=== PATIENT | female | born 1990 | race Caucasian/White ===

== ENCOUNTER → 2019-02-24 07:57 | Outpatient (BNVA) | payer OTHER, SELFPAY | PROVIDERS: Family Provider Family Medicine; PCP Family Medicine; Visit Provider Obstetrics & Gynecology | DX: Z01.89 Encounter for other specified special examinations (principal) ==

== ENCOUNTER → 2019-03-20 14:25 | Outpatient (BNVA) | payer MEDICAID, SELFPAY | PROVIDERS: Family Provider Family Medicine; PCP Family Medicine; Visit Provider Obstetrics & Gynecology | DX: R87.619 Unspecified abnormal cytological findings in specimens from cervix uteri (principal); R87.89 Other abnormal findings in specimens from female genital organs; N80.9 Endometriosis, unspecified | CPT/HCPCS: 81025 ==

== ENCOUNTER → 2019-03-21 10:24 | Outpatient (BNVA) | payer MEDICAID, SELFPAY | PROVIDERS: Family Provider Family Medicine; PCP Family Medicine; Visit Provider Obstetrics & Gynecology | DX: Z01.89 Encounter for other specified special examinations (principal) | CPT/HCPCS: 88305 ==

== ENCOUNTER → 2019-03-26 10:34 | Outpatient (BNVA) | payer MEDICAID, SELFPAY | PROVIDERS: Family Provider Family Medicine; PCP Family Medicine; Visit Provider Obstetrics & Gynecology | DX: R87.89 Other abnormal findings in specimens from female genital organs (principal); R10.2 Pelvic and perineal pain; N93.0 Postcoital and contact bleeding | CPT/HCPCS: 88305 ==

== ENCOUNTER 2019-04-09 09:02 | Inpatient (IN) | payer MEDICAID, SELFPAY ==
--- NOTE | 2019-04-08 11:20 | ANES.PREANE2 ---
Pre-Anesthetic Assessment Pre-Anesthetic Assessment: Height/Weight: Height 1.5 m Weight 45.359 kg Preop Diagnosis: Endometriosis, chronic pelvic pain Proposed Procedure: Operation Date: 04/09/19 07:00 Proposed Procedures p Total Vaginal Hysterectomy 23654 N93.9 R10.2(Not Applicable) - Erlin Mosher MD Social: Social History: Tobacco and No alcohol Exam: Pre-Anes Outpt Exam: alert, oriented x 3, clear to auscultation bilaterally and regular rate & rhythm History/ROS: No significant history except as noted Pulmonary: Pulmonary: None reported CV/HEM: CV/HEM: None reported : : None reported Hepatic: Hepatic: None reported GI: GI: GERD (occ) Metabolic: Metabolic: None reported Musc/skel: Musc/skel: None reported Neuropsych: Neuropsych: Anxiety and Depression Anesthetic Plan: ASA status: 2 Anesthesia: Anesthesia Evaluation and General Risk of > 500 ml blood loss (7ml/kg in children): No PFSH Anesthesia PFSH: Medical History (Updated 04/08/19 @ 11:21 by Wei Trevizo MD) Abnormal uterine bleeding (AUB) Pelvic pain in female Surgical History H/O removal of cyst [address] Mosher History of laparoscopy 2010-for endometriosis 2015- for Mirena removal 01/17/2017-performed by Dr. Mosher at [facility] History of tubal ligation 12/2015- per Dr. Mosher at [facility] Family History Mother Stroke Hyperlipidemia Family history of thyroid problem Hypertension Father Degenerative disc disease Diabetes Unknown Breast cancer maternal great aunt Grandmother Ovarian cancer maternal Uterine cancer maternal Social History Smoking and tobacco status: current every day smoker cigarettes Packs smoked per day: 0.5 Alcohol intake: never Additional social history: well balanced diet Female Reproductive History: Date of last menstrual period: 03/18/19 Data Anesthesia Cardiac Studies: No Data to Display
[2019-04-08 11:34] LABS: Basophils % 0.6 %; Eosinophils # 0.1 10^3/uL (0.0-0.8); Eosinophils % 2.4 %; Hemoglobin 12.1 g/dL (11.5-15.3); Lymphocytes # 1.8 10^3/uL (0.8-4.8); Lymphocytes % 32.3 %; Mean Corpuscular HGB Conc 31.8 g/dL (30.0-36.0); Mean Corpuscular Hemoglobin 32.6 pg (28.0-34.0); Mean Corpuscular Volume 102.4 fL (81-99); Mean Platelet Volume 9.5 fL (7.4-10.4); Monocytes # 0.5 10^3/uL (0.2-0.9); Monocytes % 8.9 %; Neutrophils % 55.6 %; Nucleated Red Blood Cells % 0 %; Platelet Count 305 10^3/cmm (130-400); Red Blood Count 3.71 10^6/uL (4.1-5.3); Red Cell Distribution Width 13.2 % (12.1-15.1); White Blood Count 5.4 10^3/uL (4.0-10.0)
[2019-04-08 11:44] LABS: Add Urine Microscopic? YES; Bilirubin Urine Neg (NEGATIVE); Blood Urine 2+ (Negative); Glucose Urine UA Norm (Normal); Ketones Urine Negative (Negative); Leukocyte Esterase Urine Negative (Negative); Nitrate Urine Negative (Negative); Protein Urine Neg (Negative); Specific Gravity, Urine 1.005 (1.005-1.030); Urine Appearance Clear (CLEAR); Urine Color Straw (Yellow); Urobilinogen Urine Norm (Negative)
[2019-04-08 11:55] LABS: Alanine Aminotransferase 169 U/L (0-33); Albumin Level 4.2 g/dL (3.5-5.2); Alkaline Phosphatase 101 IU/L (35-105); Anion Gap 14.3 (5-19); Aspartate Amino Transferase 54 U/L (0-32); Blood Urea Nitrogen 8 mg/dL (6-20); Calcium 9.5 mg/dL (8.5-10.5); Carbon Dioxide 24 mmol/L (22-29); Chloride 103 mmol/L (98-107); Glomerular Filtration Rate 118.2 mL/min (90-130); Glucose 103 mg/dL (65-115); Potassium 4.3 mmol/L (3.5-5.1); Sodium 137 mmol/L (136-145); Total Bilirubin 0.3 mg/dL (0.15-1.2); Total Protein 7.2 g/dL (6.6-8.7)
[2019-04-08 12:02] LABS: Add Urine Culture? No; Bacteria Urine TRACE
[2019-04-09] VITALS (23 sets, daily range): BP systolic 103–133; BP diastolic 56–87; PULSE 80–124; RESP 15–20; TEMP 36.6–37.4; O2SAT 96–100
[2019-04-09] MEDS: sodium chloride 0.9% 1,000 ML 30 ML IV (06:30)
--- NOTE | 2019-04-09 06:52 | ANES.PAUD2 ---
Pre-Anesthetic Update Pre-Anesthetic Assessment: Date of Surgery/Procedure: 04/09/19 Preop Diagnosis: Endometriosis, chronic pelvic pain Proposed Procedure: Operation Date: 04/09/19 07:00 Proposed Procedures p Total Vaginal Hysterectomy 59172 N93.9 R10.2(Not Applicable) - Erlin Mosher MD Any changes to Pre-Anesthetic Assessment?: No Last Intake: NPO > 8 hrs, no meds this morning Labs Last 48hrs: Laboratory Results - last 48 hr 04/08/19 04/08/19 04/08/19 11:10 11:10 11:10 WBC 5.4 RBC 3.71 L Hgb 12.1 Hct 38.0 MCV 102.4 H MCH 32.6 MCHC 31.8 RDW 13.2 Plt Count 305 MPV 9.5 Neut % (Auto) 55.6 Lymph % (Auto) 32.3 [facility] % (Auto) 8.9 Eos % (Auto) 2.4 Baso % (Auto) 0.6 Neut # (Auto) 3.0 Lymph # (Auto) 1.8 [facility] # (Auto) 0.5 Eos # (Auto) 0.1 Baso # (Auto) 0.0 Nucleated RBC % (a uto) 0 Nucleated RBCs # 0.0 Sodium 137 Potassium 4.3 Chloride 103 Carbon Dioxide 24 Anion Gap 14.3 BUN 8 Creatinine 0.6 GFR Calculation 118.2 Glucose 103 Calcium 9.5 Total Bilirubin 0.3 AST 54 H ALT 169 H Alkaline Phosphata se 101 Total Protein 7.2 Albumin 4.2 Globulin 3.0 Urine Color Straw Urine Appearance Clear Urine pH 5.0 Ur Specific Gravit y 1.005 Urine Protein Neg Urine Glucose (UA) Norm Urine Ketones Negative Urine Occult Blood 2+ H Urine Nitrate Negative Urine Bilirubin Neg Urine Urobilinogen Norm Ur Leukocyte Adriana ase Negative Urine RBC None Urine WBC 5-10 H Ur Squamous Epith Cells 5-10 H Urine Bacteria Trace Blood Type Antibody Screen 04/08/19 11:10 WBC RBC Hgb Hct MCV MCH MCHC RDW Plt Count MPV Neut % (Auto) Lymph % (Auto) [facility] % (Auto) Eos % (Auto) Baso % (Auto) Neut # (Auto) Lymph # (Auto) [facility] # (Auto) Eos # (Auto) Baso # (Auto) Nucleated RBC % (a uto) Nucleated RBCs # Sodium Potassium Chloride Carbon Dioxide Anion Gap BUN Creatinine GFR Calculation Glucose Calcium Total Bilirubin AST ALT Alkaline Phosphata se Total Protein Albumin Globulin Urine Color Urine Appearance Urine pH Ur Specific Gravit y Urine Protein Urine Glucose (UA) Urine Ketones Urine Occult Blood Urine Nitrate Urine Bilirubin Urine Urobilinogen Ur Leukocyte Adriana ase Urine RBC Urine WBC Ur Squamous Epith Cells Urine Bacteria Blood Type B Positive Antibody Screen Negative Vitals: Temperature 98.2 F 04/09/19 06:45 Pulse Rate 87 04/09/19 06:45 Pulse Rhythm 04/09/19 06:26 Pulse Strength 3+ Normal 04/09/19 06:26 Respiratory Rate 16 04/09/19 06:45 Blood Pressure 131/87 04/09/19 06:45 Blood Pressure Jacqui n 101 04/09/19 06:45 Pulse Oximetry 98 04/09/19 06:45 Oxygen Delivery Me thod 04/09/19 06:45 Exam: Pre-Anes Outpt Exam: alert, oriented x 3, clear to auscultation bilaterally and regular rate & rhythm Cardiac Studies: No Data to Display
--- NOTE | 2019-04-09 07:05 | W.PM.OPSUD ---
Surgery/Procedure H&P Update DATE OF PROCEDURE: April 09, 2019 DATE H&P PERFORMED: 04/07/19 H&P UPDATE INFORMATION: I have reviewed H&P completed within last 30 days and I have examined patient prior to procedure PREOP DIAGNOSIS: Endometriosis, chronic pelvic pain PLANNED PROCEDURE: Operation Date: 04/09/19 07:00 Proposed Procedures p Total Vaginal Hysterectomy 12733 N93.9 R10.2(Not Applicable) - Erlin Mosher MD
[2019-04-09 07:06] LABS: OR HCG Qualitative Urine Negative (Negative)
[2019-04-09] MEDS: midazolam 1 mg/mL INJ 2 mL 2 MG IVP (07:13)
[2019-04-09] MEDS: estrogens Conjugated Cream 30 gm 1 APPLIC VAGINAL (08:16)
[2019-04-09] MEDS: fentaNYL 50 mcg/mL INJ 2mL IVP ×2 (08:52→08:57)
[2019-04-09] MEDS: metoclopramide 5 mg/mL SDV 2 mL 10 MG IVP (09:00)
--- NOTE | 2019-04-09 09:08 | PM.OP ---
Operative Report Date of procedure: April 09, 2019 Pre-op Diagnosis: Endometriosis, chronic pelvic pain, dyspareunia. Post-op diagnosis: same Post-op Findings: normal size uterus Procedure Done: Total vaginal hysterectomy Specimens removed/disposition: uterus Surgeon: Erlin Mosher Anesthesia: General Estimated blood loss (mL): 25 IV fluids (mL): 1,200 Urine output (mL): 900 Complications: None Condition: stable Disposition: PACU Brief History: 28 y/o female with Endometriosis, chronic pelvic pain, dyspareunia. Procedure: Total vaginal hysterectomy After informed consent and risks, benefits, indications and alternatives reviewed with the patient was taken to the operating room. The patient was placed in dorsal lithotomy position prepped, and draped in the usual sterile fashion. The pre-procedure timeout verifying the correct patient, procedure, site and side, could not requirements was performed and acknowledge by the OR team. A Beltran catheter was placed. A Bookwalter vaginal retractor was placed into the vagina in usual manner visualize the cervix. Cervix was grasped with a single tooth tenaculum and circumferentially infiltrated with 2% Xylocaine with epinephrine. Then cervix was circumferentially incised with bovie and the bladder was dissected off the pubovesical cervical fascia anteriorly with a sponge stick and Metzenbaum scissors. The anterior peritoneal reflection was identified and the anterior cul-de-sac was entered sharply with Metzenbaum scissors. The same procedure was performed posteriorly and a posterior colpotomy was made through the posterior cul-de-sac space without difficulty and the posterior blade of the Bookwalter vaginal retractor was advanced posteriorly into the cul-de-sac. At this time, the left and right uterosacral ligaments were isolated and ligated with 0 Vicryl. The Enseal device was placed over the uterosacral ligaments on either side and was then used in a serial fashion up through the cardinal ligaments bilaterally cross-clamped, cut, and sealed with the Enseal device. Finally, the uterine arteries were cross-clamped, cut, sealed and ligated with the Enseal device. Hemostasis was assured. The broad ligaments were then serially clamped, sealed and cut with the Enseal device on both sides. Excellent hemostasis was visualized. Both cornua were clamped, sealed and cut with the Enseal device. Then the pedicles were then suture ligated with excellent hemostasis. The uterus was excised and submitted for pathologic evaluation. No other abnormalities were noted in the pelvic cavity. The peritoneum was then closed in a pursestring fashion with 0 Vicryl suture. The vaginal cuff angles were closed with [id number] #0 Vicryl suture on both sides and transfixed with the ipsilateral cardinal and uterosacral ligaments. At this time the patient was given indigo carmine IV. The remainder of the vaginal cuff was closed with #0 Vicryl in a running locked fashion. At this time, instruments were removed from the vagina at hemostasis assured. Then the Beltran catheter was removed and cystoscope was inserted. The bladder was filled with sterile water. Complete evaluation of the bladder mucosa was performed noting no lacerations, dimpling, tears, bleeding of the mucosa or muscular layers. Both ureteral orifices were identified. Prompt excretion of blue urine from both ureteral orifices was noted. Cystoscope was withdrawn. Beltran catheter was then placed yielding clear manny urine. A vaginal packing with Premarin cream was placed and the patient was taken out of dorsal lithotomy position and awakened from the general anesthesia. The patient tolerated the procedure well and was taken to the PACU recovery room in a stable condition. Sponge, lap, needle and instruments counts were correct x3.
[2019-04-09] MEDS: HYDROcodone-acetaminophen 5-325 mg Tablet PO ×3 (10:08→21:11)
[2019-04-09] MEDS: dextrose 5%-lactated ringers 1,000 ML 125 ML IV (11:25)
--- NOTE | 2019-04-09 11:40 | PC.NURSE ---
Dr. Mosher notified that patient stated she didn't get her preop antibiotics like she was supposed to. Dr. Mosher updated that she did get 2 gm cefazolin before surgery this morning. No new orders for antibiotics given at this time.
[2019-04-09] MEDS: ketorolac 30 mg/mL INJ IVP ×2 (15:47→19:50)
[2019-04-09] MEDS: docusate sodium 100 mg Capsule PO (18:08)
[2019-04-10] MEDS: HYDROcodone-acetaminophen 5-325 mg Tablet PO ×3 (01:01→09:11)
[2019-04-10 03:52] VITALS: BP 121/79; PULSE 103; RESP 15; TEMP 36.9; O2SAT 97
[2019-04-10 05:56] LABS: Hematocrit 34.5 % (37.0-47.0); Hemoglobin 11.1 g/dL (11.5-15.3); Mean Corpuscular HGB Conc 32.2 g/dL (30.0-36.0); Mean Corpuscular Hemoglobin 32.9 pg (28.0-34.0); Mean Corpuscular Volume 102.4 fL (81-99); Mean Platelet Volume 9.8 fL (7.4-10.4); Platelet Count 313 10^3/cmm (130-400); Red Blood Count 3.37 10^6/uL (4.1-5.3); Red Cell Distribution Width 13.3 % (12.1-15.1); White Blood Count 14.1 10^3/uL (4.0-10.0)
--- NOTE | 2019-04-10 06:56 | PC.NURSE ---
REMOVAL OF VAGINAL PACKING THIS NURSE REMOVED VAGINAL PACKING FROM PT AT 0655 04/10/19. PT TOLERATED PROCEDURE WELL. SCANT AMOUNTS OF DARK BROWNISH-RED DRIED BLOOD NOTED TO PACKING. PACKING REMOVED IN A SINGLE PIECE.
[2019-04-10] MEDS: alum-mag-hydroxide-sime 30 mL UDC PO (07:49)
[2019-04-10] MEDS: simethicone 80 mg Chew PO (07:50)
[2019-04-10] MEDS: docusate sodium 100 mg Capsule PO (07:51)
--- NOTE | 2019-04-10 09:08 | P.DS_ITS ---
Discharge Providers [employer] PERSON Date of Admission: 04/09/19 09:02 Date of Discharge: 04/10/19 Attending Provider at Admission: Erlin Mosher MD Attending Provider at Discharge: Erlin Mosher MD Primary Care Provider: Joaquin Mak MD Diagnoses at Discharge Discharge Diagnosis (1) Chronic pelvic pain in female: Status: Acute (2) Endometriosis determined by laparoscopy: Status: Acute (3) Abnormal Papanicolaou smear of cervix with positive human papilloma virus (HPV) test: Status: Acute Reason for Visit Reason for Visit: Reason For Visit: abnormal uterine bleeding chronic pelvic pain Brief History: 28-year-old female with a history of long-standing chronic pelvic pain and dyspareunia diagnosed with endometriosis unresponsive to medical management. Hospital Course Hospital Course: The patient was admitted for the planned total vaginal hysterectomy. The procedure was performed without complication. Postop observation was uneventful. She is afebrile and hemodynamically stable. Tolerating diet well. Ambulating without difficulty. Urine output normal. Physical Exam Narrative: EXAM NARRATIVE: GA: Alert and oriented ?3. HEENT: WNL. Heart: Regular rate and rhythm. Lungs: Clear to auscultation bilaterally. Abdomen: Bowel sounds present, minimal tenderness. 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 Extremities: No edema, no cyanosis, no calves pain. Urinary Catheter Management^: Beltran: Cath Placed During This Visit: yes, but has since been removed by the nurse Reason for Continuing Indwelling Catheter: Required Immobilization for Trauma or Surgery or Anesthesia Urinary Catheter Date of Insertion: 04/09/19 Urinary Catheter Time of Insertion: 07:36 Date Urinary Catheter Removed: 04/09/19 Time Urinary Catheter Discontinued: 13:48 Discharge Data Data Completed and Pending: Laboratory Tests 04/08/19 11:10 WBC 5.4 Hgb 12.1 Hct 38.0 Plt Count 305 Pending at discharge Category Date Time Status Pathology: Surgic al [PTH] Routine Pth 04/09/19 08:30 Received Labs from last 24 hours 04/10/19 05:04 WBC 14.1 H RBC 3.37 L Hgb 11.1 L Hct 34.5 L MCV 102.4 H MCH 32.9 MCHC 32.2 RDW 13.3 Plt Count 313 MPV 9.8 Addt'l Data from Hospital Stay: Intake & Output 04/09/19 04/10/19 04/10/19 22:59 06:59 14:59 Intake Total 204.167 / 1187.917 Output Total 875 / 4525 500 / 5025 0 / 0 Balance -670.833 / -3337.0 83 -500 / -3837.083 0 / 0 Intake: IV 204.167 / 747.917 dextrose 5%-la ctated ringers 1, 204.167 / 614.584 000 ml @ 125 m ls/hr IV .Q8H BLAYNE Rx#:[id number] Output: Urine 875 / 4500 500 / 5000 0 / 0 Vitals: Last Vital Signs Temp 98.5 F 04/10/19 03:52 Pulse 103 H 04/10/19 03:52 Resp 15 04/10/19 03:52 BP 121/79 04/10/19 03:52 Pulse Ox 97 04/10/19 03:52 Discharge Plan Discharge Patient Disposition: Home, Self-Care Condition: Stable Prescriptions: New hydrocodone-acetaminophen 5-325 mg Tablet 1 - 2 tab PO Q4H PRN (Reason: Moderate To Severe Pain) Qty: 30 RF: 0 Continued cyclobenzaprine 10 mg tablet 10 mg PO .TID prn RF: 0 alprazolam 0.25 mg tablet 0.25 mg PO .BID prn RF: 0 cetirizine 10 mg tablet 10 mg PO DAILY RF: 0 ibuprofen 600 mg tablet 600 mg PO TID MDD PAIN PRN (Reason: Endometriosis) Qty: 60 RF: 11 Discharge Orders: Discharge Order (Routine); Ordered 04/10/19 Ordered By: Erlin Mosher Discharge Diet: Regular Discharge Activity: Increase activity as tolerated Activity Restrictions/Additional Instructions: Pelvic rest for 6 weeks. Return to the emergency room if any fever, increased bleeding or pain Discharge Attestations [employer] PERSON Time Spent in Discharge Care*: greater than 30 min Coding Level of Care Code Acute Grip for g Fwd Diagnoses Chronic pelvic pain in female R10.2; G89.29 Endometriosis determined by laparoscopy N80.9 Abnormal Papanicolaou smear of cervix with positive human papilloma virus (HPV) test R87.89
[2019-04-10 10:07] VITALS: BP 99/69; PULSE 121; RESP 18; TEMP 36.8; O2SAT 97
[2019-04-10 10:11] VITALS: PULSE 109
--- NOTE | 2019-04-10 10:31 | ANE.PACU2 ---
 Inpatient post-anesthesia follow up: Airway intact: No Vital signs: Temperature 98.3 F Pulse Rate 109 Respiratory Rate 18 Blood Pressure 99/69 Pulse Oximetry 97 Oxygen Delivery Me thod Room Air Oxygen Flow Rate 6 Fraction of Inspir ed Oxygen Hydration adequate: Yes Nausea and vomiting: No Mental status: Baseline
== END 2019-04-10 10:28 | disposition home or self-care (01) | DRG 743 ==
LOC: OBGYN 04-10 09:07
PROVIDERS: Admitting Provider Obstetrics & Gynecology; Family Provider Family Medicine; PCP Family Medicine; Visit Provider Obstetrics & Gynecology
PROC: 0UT90ZZ Resection of Uterus, Open Approach (ICD-10-PCS; principal; 2019-04-09 07:00)
PROC: 0TJB8ZZ Inspection of Bladder, Via Natural or Artificial Opening Endoscopic (ICD-10-PCS; CPT 52000; 2019-04-09 07:00)
DX: N80.9 Endometriosis, unspecified (principal); N94.10 Unspecified dyspareunia; G89.29 Other chronic pain; R10.2 Pelvic and perineal pain; Z80.41 Family history of malignant neoplasm of ovary; F17.210 Nicotine dependence, cigarettes, uncomplicated
CPT/HCPCS: 12345; 36415; 80053; 81001; 81025; 84703; 85025; 85027; 86850; 86900; 88307; 96361; 96374; 96375; G0378; J0131; J0690; J1100; J1885; J2001; J2250; J2370; J2704; J2710; J2765; J3010; J3490; J7030

== ENCOUNTER 2019-05-01 08:53 | Inpatient (IN) | payer MEDICAID, SELFPAY ==
[2019-05-01] VITALS (8 sets, daily range): BP systolic 117–136; BP diastolic 64–92; PULSE 99–111; RESP 16–18; TEMP 36.9–37.6; O2SAT 94–99; BMI 20.9
--- NOTE | 2019-05-01 09:07 | ED_ITS ---
Documented by User: ENOCH Ferris 05/01/19 14:01 HPI - Female Genitourinary General: Chief complaint: Vaginal Bleeding Stated complaint: HEAVY BLEEDING Time Seen by Provider: 05/01/19 09:02 History of Present Illness: HPI Narrative: Patient is a 28-year-old female G3, P3 comes to the ED with pelvic pain and vaginal bleeding. 3 weeks ago patient had a hysterectomy performed due to patient having cervical cancer. Patient started having heavy bleeding about 1 week ago. Patient says she had some mild postop bleeding that was normal for couple days after surgery, but then did not have any vaginal bleeding until about a week ago. She uses heavy pads for bleeding and says that she goes through a pad an hour for the last week. Patient is also having 9 out of 10 pelvic pain. Pain started about a week ago as well and gets worse when she has had bowel movements or urinates. She says she is constipated and does have to strain for bowel movements. She had some nausea and vomiting about a week ago but that has since resolved. Patient saw Dr. Mosher last Sunday for postop follow-up. Dr. Mosher thought some of her pain and bleeding could possibly be from putting strain on the sutures due to straining bowel movements. Dr. Mosher inspected the suture area and said that the sutures looked like that a little bit of strain. She supposed to see Dr. Mosher this May 01 but called his office today and he told the patient to come up to the ED to get a CT scan. Associated symptoms: Reports abdominal pain (lower abdomen/pelvic) and nausea (recently resolved); Deny headache(s) Date of Last Menstrual Period: 03/18/19 Review of Systems Const: Denies: fever, chills or fatigue Eyes: Denies: change in vision or eye discomfort ENMT: Denies: throat pain, painful swallowing, nasal discharge or nasal congestion Card: Denies: chest pain, palpitations, edema, swelling of feet/ankles, shortness of breath on exertion or shortness of breath when lying down Resp: Denies: shortness of breath, productive cough or non-productive cough GI: Reports: abdominal pain (lower abdomen/pelvic), nausea (recently resolved), vomiting (Recently resolved) and constipation; Denies: diarrhea or blood in stool : Reports: vaginal bleeding (heavy for about 1 week) and pelvic pain; Denies: flank pain, painful urination or blood in urine Musc: Denies: neck pain, back pain or extremity swelling Skin/Breast: Denies: rash or new lesion Neuro: Denies: headache, numbness in extremities or weakness in extremities PFSH ED PFSH: Medical History Abnormal uterine bleeding (AUB) Pelvic pain in female Surgical History H/O removal of cyst [address] Mosher History of laparoscopy 2010-for endometriosis 2015- for Mirena removal 01/17/2017-performed by Dr. Mosher at [facility] History of tubal ligation 12/2015- per Dr. Mosher at [facility] Family History Mother Stroke Hyperlipidemia Family history of thyroid problem Hypertension Father Degenerative disc disease Diabetes Unknown Breast cancer maternal great aunt Grandmother Ovarian cancer maternal Uterine cancer maternal Social History Smoking and tobacco status: current every day smoker cigarettes Packs smoked per day: 0.5 Alcohol intake: never Additional social history: well balanced diet Female Reproductive History: Date of last menstrual period: 03/18/19 Physical Exam Narrative: EXAM NARRATIVE: Patient is a 28-year-old female who is sitting comfortably on the exam bed when I enter the room. Patient did not appear to be in any acute distress. Const: COMMON NORMALS: oriented x3 HENMT: COMMON NORMALS: normocephalic HEAD & SCALP: normocephalic MOUTH: oral and palatal mucosa normal THROAT: posterior oropharynx normal and uvula midline Eye: COMMON NORMALS: PERRL PUPIL: Yes PERRL Neck/C-Spine: COMMON NORMALS: supple GENERAL: Yes normal visual inspection Lymph: LYMPHATIC: no lymphadenopathy noted (cervical nodes checked-non detected) Resp: COMMON NORMALS: normal respiratory effort, no retractions, no use of accessory muscles and clear to auscultation bilaterally AUSCULTATION: clear to auscultation bilaterally Cardio: COMMON NORMALS: regular rate, regular rhythm, S1 normal heart sound, S2 normal heart sound, no gallops, no clicks, no murmurs and peripheral pulses 2+ throughout RATE: regular rate RHYTHM: regular rhythm HEART SOUNDS: S1 normal and S2 normal PERIPHERAL PULSES: pulses 2+ throughout GI: COMMON NORMALS: normal to inspection, nondistended, normoactive bowel sounds, soft to palpation and no masses PALPATION: Yes soft and Yes tender Details: LLQ, RLQ and other (pelvic) : COMMON NORMALS: Yes no CVA tenderness BLADDER/KIDNEY EXAM: Yes no CVA tenderness Back/Pelvis: COMMON NORMALS: no CVA tenderness Extremity: COMMON NORMALS: normal to inspection and normal capillary refill Neuro: COMMON NORMALS: oriented x3 and moves all extremities Skin: COMMON NORMALS: no rashes or lesions noted GENERAL SKIN EXAM: no rashes or lesions noted and dry skin Course ED course: I discussed this case with Dr. Odell and told him about the CT results. Dr. Odell will be taking over care of patient since they will be possibly needing admission or transfer. Vital Signs: Vital signs: Vital Signs Temperature 98.5 F 05/01/19 08:55 Pulse Rate 99 05/01/19 08:55 Respiratory Rate 18 05/01/19 17:12 Blood Pressure 136/92 05/01/19 08:55 Pulse Oximetry 99 05/01/19 11:37 MDM - Female Lab Data: Attestation: I reviewed the patient's lab results. Labs: Lab Results 04/30/19 05/01/19 05/01/19 Range/Units 09:25 09:15 09:15 WBC 12.3 H (4.0-10.0) 10^3/ uL RBC 3.16 L (4.1-5.3) 10^6/u L Hgb 9.9 L (11.5-15.3) g/dL Hct 31.8 L (37.0-47.0) % MCV 100.6 H (81-99) fL MCH 31.3 (28.0-34.0) pg MCHC 31.1 (30.0-36.0) g/dL RDW 14.0 (12.1-15.1) % Plt Count 705 H (130-400) 10^3/c mm MPV 9.0 (7.4-10.4) fL Neut % (Auto) 80.3 % Lymph % (Auto) 12.2 % [place] % (Auto) 5.6 % Eos % (Auto) 1.2 % Baso % (Auto) 0.4 % Neut # (Auto) 9.9 H (1.8-7.7) 10^3/u L Lymph # (Auto) 1.5 (0.8-4.8) 10^3/u L [place] # (Auto) 0.7 (0.2-0.9) 10^3/u L Eos # (Auto) 0.2 (0.0-0.8) 10^3/u L Baso # (Auto) 0.1 (0.0-0.1) 10^3/u L Nucleated RBC % (a uto) 0 % Nucleated RBCs # 0.0 /100WBC Sodium 139 (136-145) mmol/L Potassium 4.2 (3.5-5.1) mmol/L Chloride 103 (98-107) mmol/L Carbon Dioxide 23 (22-29) mmol/L Anion Gap 17.2 (5-19) BUN 8 (6-20) mg/dL Creatinine 0.5 (0.5-0.9) mg/dL GFR Calculation 145.9 H (90-130) mL/min Glucose 99 (65-115) mg/dL Calculated Osmolal ity 284 L (285-295) mOsm/k g Lactate (0.5-2.2) mmol/L Calcium 9.8 (8.5-10.5) mg/dL Total Bilirubin 0.2 (0.15-1.2) mg/dL AST 13 (0-32) U/L ALT 24 (0-33) U/L Alkaline Phosphata se 244 H (35-105) IU/L Total Protein 7.8 (6.6-8.7) g/dL Albumin 3.7 (3.5-5.2) g/dL Globulin 4.1 (1.3-4.6) g/dL HCG, Qual (Negative) Urine Color Yellow (Yellow) Urine Appearance Hazy A (CLEAR) Urine pH 6 (5-7) Ur Specific Gravit y 1.020 (1.005-1.030) Urine Protein Neg (Negative) Urine Glucose (UA) Norm (Normal) Urine Ketones 1+ H (Negative) Urine Blood 3+ H (Negative) Urine Nitrate Negative (Negative) Urine Bilirubin Neg (NEGATIVE) Urine Urobilinogen Norm (Negative) mg/dL Ur Leukocyte Adriana ase 2+ H (Negative) Urine RBC 5-10 H (0-2) /hpf Urine WBC 25-40 H (0-5) /hpf Ur Squamous Epith Cells 0-4 H (0-5) Urine Bacteria 2+ H (NONE) Blood Type Rho(D) Type Antibody Screen 05/01/19 05/01/19 05/01/19 Range/Units 09:15 09:39 09:39 WBC (4.0-10.0) 10^3/ uL RBC (4.1-5.3) 10^6/u L Hgb (11.5-15.3) g/dL Hct (37.0-47.0) % MCV (81-99) fL MCH (28.0-34.0) pg MCHC (30.0-36.0) g/dL RDW (12.1-15.1) % Plt Count (130-400) 10^3/c mm MPV (7.4-10.4) fL Neut % (Auto) % Lymph % (Auto) % [place] % (Auto) % Eos % (Auto) % Baso % (Auto) % Neut # (Auto) (1.8-7.7) 10^3/u L Lymph # (Auto) (0.8-4.8) 10^3/u L [place] # (Auto) (0.2-0.9) 10^3/u L Eos # (Auto) (0.0-0.8) 10^3/u L Baso # (Auto) (0.0-0.1) 10^3/u L Nucleated RBC % (a uto) % Nucleated RBCs # /100WBC Sodium (136-145) mmol/L Potassium (3.5-5.1) mmol/L Chloride (98-107) mmol/L Carbon Dioxide (22-29) mmol/L Anion Gap (5-19) BUN (6-20) mg/dL Creatinine (0.5-0.9) mg/dL GFR Calculation (90-130) mL/min Glucose (65-115) mg/dL Calculated Osmolal ity (285-295) mOsm/k g Lactate 0.2 L (0.5-2.2) mmol/L Calcium (8.5-10.5) mg/dL Total Bilirubin (0.15-1.2) mg/dL AST (0-32) U/L ALT (0-33) U/L Alkaline Phosphata se (35-105) IU/L Total Protein (6.6-8.7) g/dL Albumin (3.5-5.2) g/dL Globulin (1.3-4.6) g/dL HCG, Qual Negative (Negative) Urine Color (Yellow) Urine Appearance (CLEAR) Urine pH (5-7) Ur Specific Gravit y (1.005-1.030) Urine Protein (Negative) Urine Glucose (UA) (Normal) Urine Ketones (Negative) Urine Blood (Negative) Urine Nitrate (Negative) Urine Bilirubin (NEGATIVE) Urine Urobilinogen (Negative) mg/dL Ur Leukocyte Adriana ase (Negative) Urine RBC (0-2) /hpf Urine WBC (0-5) /hpf Ur Squamous Epith Cells (0-5) Urine Bacteria (NONE) Blood Type B Positive Rho(D) Type Positive Antibody Screen Negative Imaging Data: CT Abd/Pel: Attestation: I personally reviewed and interpreted this imaging study as follows: Radiologist's impression: [place] [address] CT Scan Report Signed Patient: Mary Nesbitt Unit #: [id number] : 1990 Age/Sex: 28 / F ADM Date: 05/01/19 Loc: ER Room/Bed: Attending Dr: Ordering Provider/Ordering MD: James Tyson Date of Service: 05/01/19 Procedure(s): CT abdomen pelvis w con* [id number] Accession Number(s): [id number] Report Number: [id number] WS: [id number] CT ABDOMEN PELVIS TECHNIQUE: Contrast-enhanced CT of the abdomen and pelvis with coronal and sagittal reformatted images. CLINICAL INFORMATION: Pelvic pain and vaginal bleeding. COMPARISON: CT January 20, 2019 DLP: 496.[address] scans at [facility] use at least one of these dose optimization techniques: automated exposure control; mA and/or kV adjustment per patient size (includes targeted exams where dose is matched to clinical indication); or iterative reconstruction. FINDINGS: Recent postoperative changes hysterectomy. Moderate amount of fluid in the pelvis with peripheral enhancement and a few scattered pockets of air. Dominant collection in the hysterectomy bed with peripheral enhancement measuring 6.3 x 3.8 x 5.1 CM suspicious for infected fluid collection/abscess. Adjacent satellite pocket of fluid with peripheral enhancement eccentric to the left measuring 2.4 cm adjacent to the left ovary. Additional right adnexal peripheral enhancing round collections more likely represent bowel and/or adnexal cysts. These 2 areas measure approximately 2.5 x 2.0 cm and 2.5 x 3.1 cm. Diffuse inflammatory changes in the pelvis and about the rectum. Compression of the sigmoid and rectum. Reactive inflammatory changes involving the sigmoid colon. Mild diffuse thickening involving the vaginal cuff and perirectal fat. Normal liver. Normal portal vein and splenic vein. Normal gallbladder. Adrenal glands are normal. Normal renal parenchymal enhancement. Normal spleen. Normal caliber abdominal aorta. No hydronephro sis. Lung bases are well aerated. Notified ENOCH Ferris at 05/01/2019 10:[address]/CT abdomen pelvis w con* [id number] IMPRESSION: 1. Postoperative changes hysterectomy with peripheral enhancing fluid collection in the hysterectomy bed suspicious for developing abscess measuring 6.3 x 3.8 x 5.1 CM. 2. Smaller satellite peripheral enhancing fluid collection along the left ovary measuring 2.3 CM. 3. Diffuse inflammatory stranding and edema in the lower pelvis extending into the vaginal cuff and perirectal fat. 4. Reactive inflammatory changes and edema with narrowing of the sigmoid colon and rectum. 5. Normal renal parenchymal enhancement. No hydronephrosis. Dictated By: Tigre Box MD Signed By: Tigre Box MD Signed Date/Time: 05/01/19 1050 DD/ 1021 Discharge Plan Discharge Patient Disposition: Admitted As Inpatient Admit Provider: Erlin Mosher Clinical Impression: Acute abscess of female pelvis, S/P hysterectomy Condition: Stable Coding Level of Care Code ED Room Service Clerk for Chg Fwd Exam Comprehensive Documented by User: Kris Odell DO 05/01/19 17:37 HPI - Female Genitourinary General: Chief complaint: Vaginal Bleeding Stated complaint: HEAVY BLEEDING Time Seen by Provider: 05/01/19 09:02 History of Present Illness: HPI Narrative: Reviewed case with [place]. Patient is needing admission. Discussed history with patient. Patient reports previously seeing Dr. Mosher in follow-up for hysterectomy which she had done about 2 weeks ago there is a concern about infection she was prescribed some antibiotics unfortunately did not ever take them. Today she has increasing pain and discomfort. CT has shown abscess. She has had some low-grade fever at home. Associated symptoms: Deny abdominal pain or nausea Review of Systems Const: Reports: fever, chills, fatigue and malaise; Denies: body aches or change in appetite ENMT: Denies: throat pain, ear pain, nasal discharge or nasal congestion Card: Denies: chest pain, edema, shortness of breath on exertion or shortness of breath when lying down Resp: Denies: shortness of breath, productive cough or non-productive cough GI: Denies: abdominal pain, nausea, vomiting, vomiting blood, coffee grounds in vomit, diarrhea, constipation, bloating, blood in stool or black tarry stool : Denies: flank pain, difficulty urinating, painful urination, urinary frequency or urinary urgency Skin/Breast: Denies: rash or itching PFSH ED PFSH: Medical History Abnormal uterine bleeding (AUB) Pelvic pain in female Surgical History H/O removal of cyst [address] Mosher History of laparoscopy 2010-for endometriosis 2015- for Mirena removal 01/17/2017-performed by Dr. Mosher at [facility] History of tubal ligation 12/2015- per Dr. Mosher at [facility] Family History Mother Stroke Hyperlipidemia Family history of thyroid problem Hypertension Father Degenerative disc disease Diabetes Unknown Breast cancer maternal great aunt Grandmother Ovarian cancer maternal Uterine cancer maternal Social History Smoking and tobacco status: current every day smoker cigarettes Packs smoked per day: 0.5 Alcohol intake: never Additional social history: well balanced diet Physical Exam Const: COMMON NORMALS: no apparent distress GENERAL APPEARANCE: cooperative and comfortable ORIENTATION/CONSCIOUSNESS: Yes awake, Yes oriented to person, Yes oriented to place and Yes oriented to time HENMT: COMMON NORMALS: normocephalic, head/scalp atraumatic, hearing grossly normal bilaterally, external ears normal, EAC's normal, TM's normal bilaterally, nasal mucous membranes and turbinates normal, moist oral mucous membranes and oropharynx normal HEAD & SCALP: normocephalic and atraumatic NOSE: nasal mucous membranes and turbinates normal EXTERNAL EAR: Yes external ears normal EXTERNAL AUDITORY CANAL: EAC's normal TYMPANIC MEMBRANE: TM's normal bilaterally Eye: COMMON NORMALS: PERRL, EOMs intact bilaterally, conjunctivae normal and no scleral icterus CONJUNCTIVA: Yes conjunctivae normal PUPIL: Yes PERRL Neck/C-Spine: COMMON NORMALS: full ROM, no lymphadenopathy, supple and no JVD Lymph: LYMPHATIC: no lymphadenopathy noted and no lymphedema noted Resp: COMMON NORMALS: normal respiratory effort, no retractions, no use of accessory muscles and clear to auscultation bilaterally AUSCULTATION: clear to auscultation bilaterally Cardio: COMMON NORMALS: no JVD, regular rate, regular rhythm and no murmurs RATE: regular rate RHYTHM: regular rhythm GI: COMMON NORMALS: no hepatosplenomegaly AUSCULTATION: Yes normoactive bowel sounds PALPATION: Yes tender (Suprapubic), No guarding and Yes no hepatosplenomegaly Extremity: COMMON NORMALS: normal to inspection, normal capillary refill, no clubbing, cyanosis or edema, no calf tenderness and no pedal edema Neuro: SENSORIUM/ORIENTATION: Yes oriented to person, Yes oriented to place and Yes oriented to time Skin: COMMON NORMALS: no rashes or lesions noted GENERAL SKIN EXAM: no rashes or lesions noted Course ED course: Luciano Mosher. Will start on Zosyn. Patient will Require hospitalization for possible exploration or procures percutaneous drainage of reported abscess from CT discussed with the patient as well. Vital Signs: Vital signs: Vital Signs Temperature 98.5 F 05/01/19 08:55 Pulse Rate 99 05/01/19 08:55 Respiratory Rate 18 05/01/19 17:12 Blood Pressure 136/92 05/01/19 08:55 Pulse Oximetry 99 05/01/19 11:37 MDM - Female Lab Data: Labs: Lab Results 04/30/19 05/01/19 05/01/19 Range/Units 09:25 09:15 09:15 WBC 12.3 H (4.0-10.0) 10^3/ uL RBC 3.16 L (4.1-5.3) 10^6/u L Hgb 9.9 L (11.5-15.3) g/dL Hct 31.8 L (37.0-47.0) % MCV 100.6 H (81-99) fL MCH 31.3 (28.0-34.0) pg MCHC 31.1 (30.0-36.0) g/dL RDW 14.0 (12.1-15.1) % Plt Count 705 H (130-400) 10^3/c mm MPV 9.0 (7.4-10.4) fL Neut % (Auto) 80.3 % Lymph % (Auto) 12.2 % [place] % (Auto) 5.6 % Eos % (Auto) 1.2 % Baso % (Auto) 0.4 % Neut # (Auto) 9.9 H (1.8-7.7) 10^3/u L Lymph # (Auto) 1.5 (0.8-4.8) 10^3/u L [place] # (Auto) 0.7 (0.2-0.9) 10^3/u L Eos # (Auto) 0.2 (0.0-0.8) 10^3/u L Baso # (Auto) 0.1 (0.0-0.1) 10^3/u L Nucleated RBC % (a uto) 0 % Nucleated RBCs # 0.0 /100WBC Sodium 139 (136-145) mmol/L Potassium 4.2 (3.5-5.1) mmol/L Chloride 103 (98-107) mmol/L Carbon Dioxide 23 (22-29) mmol/L Anion Gap 17.2 (5-19) BUN 8 (6-20) mg/dL Creatinine 0.5 (0.5-0.9) mg/dL GFR Calculation 145.9 H (90-130) mL/min Glucose 99 (65-115) mg/dL Calculated Osmolal ity 284 L (285-295) mOsm/k g Lactate (0.5-2.2) mmol/L Calcium 9.8 (8.5-10.5) mg/dL Total Bilirubin 0.2 (0.15-1.2) mg/dL AST 13 (0-32) U/L ALT 24 (0-33) U/L Alkaline Phosphata se 244 H (35-105) IU/L Total Protein 7.8 (6.6-8.7) g/dL Albumin 3.7 (3.5-5.2) g/dL Globulin 4.1 (1.3-4.6) g/dL HCG, Qual (Negative) Urine Color Yellow (Yellow) Urine Appearance Hazy A (CLEAR) Urine pH 6 (5-7) Ur Specific Gravit y 1.020 (1.005-1.030) Urine Protein Neg (Negative) Urine Glucose (UA) Norm (Normal) Urine Ketones 1+ H (Negative) Urine Blood 3+ H (Negative) Urine Nitrate Negative (Negative) Urine Bilirubin Neg (NEGATIVE) Urine Urobilinogen Norm (Negative) mg/dL Ur Leukocyte Adriana ase 2+ H (Negative) Urine RBC 5-10 H (0-2) /hpf Urine WBC 25-40 H (0-5) /hpf Ur Squamous Epith Cells 0-4 H (0-5) Urine Bacteria 2+ H (NONE) Blood Type Rho(D) Type Antibody Screen 05/01/19 05/01/19 05/01/19 Range/Units 09:15 09:39 09:39 WBC (4.0-10.0) 10^3/ uL RBC (4.1-5.3) 10^6/u L Hgb (11.5-15.3) g/dL Hct (37.0-47.0) % MCV (81-99) fL MCH (28.0-34.0) pg MCHC (30.0-36.0) g/dL RDW (12.1-15.1) % Plt Count (130-400) 10^3/c mm MPV (7.4-10.4) fL Neut % (Auto) % Lymph % (Auto) % [place] % (Auto) % Eos % (Auto) % Baso % (Auto) % Neut # (Auto) (1.8-7.7) 10^3/u L Lymph # (Auto) (0.8-4.8) 10^3/u L [place] # (Auto) (0.2-0.9) 10^3/u L Eos # (Auto) (0.0-0.8) 10^3/u L Baso # (Auto) (0.0-0.1) 10^3/u L Nucleated RBC % (a uto) % Nucleated RBCs # /100WBC Sodium (136-145) mmol/L Potassium (3.5-5.1) mmol/L Chloride (98-107) mmol/L Carbon Dioxide (22-29) mmol/L Anion Gap (5-19) BUN (6-20) mg/dL Creatinine (0.5-0.9) mg/dL GFR Calculation (90-130) mL/min Glucose (65-115) mg/dL Calculated Osmolal ity (285-295) mOsm/k g Lactate 0.2 L (0.5-2.2) mmol/L Calcium (8.5-10.5) mg/dL Total Bilirubin (0.15-1.2) mg/dL AST (0-32) U/L ALT (0-33) U/L Alkaline Phosphata se (35-105) IU/L Total Protein (6.6-8.7) g/dL Albumin (3.5-5.2) g/dL Globulin (1.3-4.6) g/dL HCG, Qual Negative (Negative) Urine Color (Yellow) Urine Appearance (CLEAR) Urine pH (5-7) Ur Specific Gravit y (1.005-1.030) Urine Protein (Negative) Urine Glucose (UA) (Normal) Urine Ketones (Negative) Urine Blood (Negative) Urine Nitrate (Negative) Urine Bilirubin (NEGATIVE) Urine Urobilinogen (Negative) mg/dL Ur Leukocyte Adriana ase (Negative) Urine RBC (0-2) /hpf Urine WBC (0-5) /hpf Ur Squamous Epith Cells (0-5) Urine Bacteria (NONE) Blood Type B Positive Rho(D) Type Positive Antibody Screen Negative Discharge Plan Discharge Patient Disposition: Admitted As Inpatient Admit Provider: Erlin Mosher Clinical Impression: Acute abscess of female pelvis, S/P hysterectomy Condition: Stable Coding Level of Care Code ED Room Service Clerk for Meghanag Fwd Exam Comprehensive
--- NOTE | 2019-05-01 09:08 | CT_ITS ---
WS: [id number] CT ABDOMEN PELVIS TECHNIQUE: Contrast-enhanced CT of the abdomen and pelvis with coronal and sagittal reformatted image s. CLINICAL INFORMATION: Pelvic pain and vaginal bleeding. COMPARISON: CT January 20, 2019 DLP: 496.[address] scans at [facility] use at least one of these dose optimization techniques: automat ed exposure control; mA and/or kV adjustment per patient size (includes targeted exams where dose is matched to clinical indication); or iterative reconstruction. FINDINGS: Recent postoperative changes hysterectomy. Moderate amount of fluid in the pelvis with peripheral enh ancement and a few scattered pockets of air. Dominant collection in the hysterectomy bed with periphe ral enhancement measuring 6.3 x 3.8 x 5.1 CM suspicious for infected fluid collection/abscess. Adjace nt satellite pocket of fluid with peripheral enhancement eccentric to the left measuring 2.4 cm adjac ent to the left ovary. Additional right adnexal peripheral enhancing round collections more likely represent bowel and/or ad nexal cysts. These 2 areas measure approximately 2.5 x 2.0 cm and 2.5 x 3.1 cm. Diffuse inflammatory changes in the pelvis and about the rectum. Compression of the sigmoid and rectum. Reactive inflammat ory changes involving the sigmoid colon. Mild diffuse thickening involving the vaginal cuff and perir ectal fat. Normal liver. Normal portal vein and splenic vein. Normal gallbladder. Adrenal glands are normal. Nor mal renal parenchymal enhancement. Normal spleen. Normal caliber abdominal aorta. No hydronephrosis. Lung bases are well aerated. Notified ENOCH Ferris at 05/01/2019 10:[address]/CT abdomen pelvis w con* [id number] IMPRESSION: 1. Postoperative changes hysterectomy with peripheral enhancing fluid collecti on in the hysterectomy bed suspicious for developing abscess measuring 6.3 x 3. 8 x 5.1 CM. 2. Smaller satellite peripheral enhancing fluid collection along the left ovar y measuring 2.3 CM. 3. Diffuse inflammatory stranding and edema in the lower pelvis extending into the vaginal cuff and perirectal fat. 4. Reactive inflammatory changes and edema with narrowing of the sigmoid colon and rectum. 5. Normal renal parenchymal enhancement. No hydronephrosis.
[2019-05-01] MEDS: sodium chloride 0.9% 1,000 ML 999 ML IV (09:17)
[2019-05-01 09:23] LABS: Basophils # 0.1 10^3/uL (0.0-0.1); Basophils % 0.4 %; Eosinophils # 0.2 10^3/uL (0.0-0.8); Eosinophils % 1.2 %; Hematocrit 31.8 % (37.0-47.0); Hemoglobin 9.9 g/dL (11.5-15.3); Lymphocytes # 1.5 10^3/uL (0.8-4.8); Lymphocytes % 12.2 %; Mean Corpuscular HGB Conc 31.1 g/dL (30.0-36.0); Mean Corpuscular Hemoglobin 31.3 pg (28.0-34.0); Mean Corpuscular Volume 100.6 fL (81-99); Monocytes # 0.7 10^3/uL (0.2-0.9); Monocytes % 5.6 %; Neutrophils # 9.9 10^3/uL (1.8-7.7); Neutrophils % 80.3 %; Nucleated Red Blood Cells % 0 %; Platelet Count 705 10^3/cmm (130-400); Red Blood Count 3.16 10^6/uL (4.1-5.3); White Blood Count 12.3 10^3/uL (4.0-10.0)
[2019-05-01] MEDS: morphine 4 mg/mL SDV 1 mL IVP ×4 (09:28→17:12)
[2019-05-01] MEDS: metoclopramide 5 mg/mL SDV 2 mL IVP (09:28)
[2019-05-01 09:37] LABS: Alanine Aminotransferase 24 U/L (0-33); Albumin Level 3.7 g/dL (3.5-5.2); Alkaline Phosphatase 244 IU/L (35-105); Anion Gap 17.2 (5-19); Aspartate Amino Transferase 13 U/L (0-32); Blood Urea Nitrogen 8 mg/dL (6-20); Calcium 9.8 mg/dL (8.5-10.5); Carbon Dioxide 23 mmol/L (22-29); Chloride 103 mmol/L (98-107); Globulin 4.1 g/dL (1.3-4.6); Glomerular Filtration Rate 145.9 mL/min (90-130); Glucose 99 mg/dL (65-115); Osmolality Calculated 284 mOsm/kg (285-295); Potassium 4.2 mmol/L (3.5-5.1); Sodium 139 mmol/L (136-145); Total Bilirubin 0.2 mg/dL (0.15-1.2); Total Protein 7.8 g/dL (6.6-8.7)
[2019-05-01 09:42] LABS: Urine Appearance Hazy (CLEAR); Urine Color Yellow (Yellow)
[2019-05-01 09:43] LABS: HCG, Serum Qual Negative (Negative)
[2019-05-01 09:43] LABS: Bilirubin Urine Neg (NEGATIVE); Blood Urine 3+ (Negative); Glucose Urine UA Norm (Normal); Ketones Urine 1+ (Negative); Leukocyte Esterase Urine 2+ (Negative); Nitrate Urine Negative (Negative); Protein Urine Neg (Negative); Urobilinogen Urine Norm (Negative); pH Urine 6 (5-7)
[2019-05-01 09:46] LABS: Add Urine Culture? Yes; Bacteria Urine 2+; Squamous Epithelial Cell Urine 0-4 (0-5); WBC Urine 25-40 /hpf (0-5)
[2019-05-01] MEDS: iohexol 300 mg/mL 100 mL Btl IV (09:59)
[2019-05-01 11:04] LABS: Lactate (Lactic Acid level) 0.2 mmol/L (0.5-2.2)
[2019-05-01] MEDS: piperacillin-tazobactam 3.375 GM in sodium chloride 0.9% (plus) 100 ML IV ×2 (11:37→23:35)
[2019-05-01] MEDS: D5-NS 0.45% + KCL 20 mEq 20 MEQ/1,000 ML BAG 150 MEQ IV (18:04)
[2019-05-01] MEDS: morphine 4 mg/mL SDV 1 mL 2 MG IVP ×2 (19:30→23:28)
--- NOTE | 2019-05-01 19:46 | P.HP_ITS ---
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 Upon examination the collection of fluid was noted and the CT scans subjective of pelvic abscess. The patient is hemodynamically stable and she had referred to be a febrile. Present Details Date of Last Menstrual Period: 03/18/19 Calculated Date of Delivery: 12/23/19 Gestational Age Based on Last Menstrual Period: 5 Review of Systems Const: Denies: fever, chills or fatigue Eyes: Denies: change in vision or eye discomfort ENMT: Denies: throat pain, painful swallowing, nasal discharge or nasal congestion Card: Denies: chest pain, palpitations, edema, swelling of feet/ankles, shortness of breath on exertion or shortness of breath when lying down Resp: Denies: shortness of breath, productive cough or non-productive cough GI: Reports: abdominal pain (lower abdomen/pelvic), nausea (recently resolved), vomiting (Recently resolved) and constipation; Denies: diarrhea or blood in stool : Reports: vaginal bleeding (heavy for about 1 week) and pelvic pain; Denies: flank pain, painful urination or blood in urine Musc: Denies: neck pain, back pain or extremity swelling Skin/Breast: Denies: rash or new lesion Neuro: Denies: headache, numbness in extremities or weakness in extremities Medications/Allergies Home Medications Medication Instructions Recorded Confirmed Last Taken Type alprazolam 0.5 mg PO BID PRN 05/01/19 05/01/19 Unknown History Allergies Allergy/AdvReac Type Severity Reaction Status Date / Time ondansetron [From Zofran] Allergy Severe Seizures Verified 04/25/19 12:50 topiramate [From Topamax] Allergy Severe facial Verified 04/25/19 12:50 numbness and tingling, dizziness Latex, Natural Rubber Allergy Intermediate rash, hives Verified 04/25/19 12:50 oxycodone Allergy Intermediate hives, pain Verified 04/25/19 12:50 tramadol Allergy Intermediate vomiting, Verified 04/25/19 12:50 nausea [facility] 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 Mosher History of laparoscopy 2010-for endometriosis 2015- for Mirena removal 01/17/2017-performed by Dr. Mosher at [facility] History of tubal ligation 12/2015- per Dr. Mosher at [facility] Family History Mother Stroke Hyperlipidemia Family history of thyroid problem Hypertension Father Degenerative disc disease Diabetes Unknown Breast cancer maternal great aunt Grandmother Ovarian cancer maternal Uterine cancer maternal Social History Smoking and tobacco status: current every day smoker cigarettes Packs smoked per day: 0.5 Alcohol intake: never Additional social history: well balanced diet History History 5 Term 3 Miscarriages/Ectopic 2 0 Living Children 3 Past Pregnancies Del. Date GA/Weeks Outcome Route Wt Inf Gender Labor Lgth Comp. Anesth esia Location Unknown spontaneous Unknown spontaneous 06/25/07 32 live - Vaginal 2.438 kg Female 12 hours [facility] 08/12/08 34 live - Vaginal 2.934 kg Female 8 hours [facility] 03/29/10 41 live - full term Vaginal 3.033 kg Female 6 hours [facility] Delivery Date: On 02/24/19 @ 08:14 Kerri Yin at 3.5 months Delivery Date: On 02/24/19 @ 08:14 Kerri Yin - 2015 at 4 months Delivery Date: 06/25/07 On 02/24/19 @ 08:[address] Mak Delivery Date: 08/12/08 On 02/24/19 @ 08:[address] Silveira Delivery Date: 03/29/10 On 02/24/19 @ 08:[address] Mak Other Female Reproductive History Hx Age of Menarche: 10 Duration of menses: 3-5 days Date of Last Menstrual Period: 03/17/19 Cycle Length: 28 days Menstrual flow: normal/abnormal: light Sexual History Are you sexually active?: Yes What is your sexual preference?: Heterosexual Hx Sexually Transmitted Diseases: No Have you ever tested positive for HIV?: No Contraception control method: Pills, Progestin IUCD, Permanent sterilization, Condoms and Other (Hysterectomy) Vitals/I&O/Wt Last Vital Signs Temp 98.5 F 05/01/19 08:55 Pulse 105 H 05/01/19 17:39 Resp 16 05/01/19 19:30 BP 117/64 05/01/19 17:39 Pulse Ox 96 05/01/19 17:39 05/01/19 05/01/19 05/01/19 06:59 14:59 22:59 Intake Total 100 / 100 Balance 100 / 100 Weight last 48 hrs Weight 47.174 kg Physical Exam Narrative: EXAM NARRATIVE: Patient was sleeping in bed in the room when I came in Const: COMMON NORMALS: oriented x3 HENMT: COMMON NORMALS: normocephalic HEAD & SCALP: normocephalic MOUTH: oral and palatal mucosa normal THROAT: posterior oropharynx normal and uvula midline Eye: COMMON NORMALS: PERRL PUPIL: Yes PERRL Neck/C-Spine: COMMON NORMALS: supple GENERAL: Yes normal visual inspection Lymph: LYMPHATIC: no lymphadenopathy noted (cervical nodes checked-non detected) Resp: COMMON NORMALS: normal respiratory effort, no retractions, no use of accessory muscles and clear to auscultation bilaterally AUSCULTATION: clear to auscultation bilaterally Cardio: COMMON NORMALS: regular rate, regular rhythm, S1 normal heart sound, S2 normal heart sound, no gallops, no clicks, no murmurs and peripheral pulses 2+ throughout RATE: regular rate RHYTHM: regular rhythm HEART SOUNDS: S1 normal and S2 normal PERIPHERAL PULSES: pulses 2+ throughout GI: COMMON NORMALS: normal to inspection, nondistended, normoactive bowel sounds, soft to palpation and no masses PALPATION: Yes soft and Yes tender Details: LLQ, RLQ and other (pelvic) : COMMON NORMALS: Yes no CVA tenderness BLADDER/KIDNEY EXAM: Yes no CVA tenderness Back/Pelvis: COMMON NORMALS: no CVA tenderness Extremity: COMMON NORMALS: normal to inspection and normal capillary refill Neuro: COMMON NORMALS: oriented x3 and moves all extremities Skin: COMMON NORMALS: no rashes or lesions noted GENERAL SKIN EXAM: no rashes or lesions noted and dry skin Data : 05/01/19 09:15 05/01/19 09:15 Micro: Microbiology 05/01/19 09:39 Blood Culture - Preliminary Blood SPECIMEN COLLECTED 05/01/19 09:15 Blood Culture - Preliminary Blood SPECIMEN COLLECTED A&P Assessment and plan (1) Acute abscess of female pelvis: Hysterectomy pelvic fluid is fairly common. However the presentation suggesting a pelvic abscess fever, tachycardia tachypnea and lower abdominal pain that can present days to weeks after a hysterectomy. The diagnosis is based on clinical suspicion and palpation a fluctuant mass and visualization fluid collection in the pelvic area either by CT scan or ultrasound. Initial treatment is with broad-spectrum parenteral antibiotics. She responded to parenteral antibiotics she may be discharged home on oral broad-spectrum antibiotics. Initial treatment with abscess less than 7 cm but greater than 2 cm if no resolution of abscess noted in 48-72 hours percutaneous drainage may be indicated. However her cyst/abscess at its greater measurement is 6.3 cm, and will schedule percutaneous drainage through the vaginal cuff in the morning after she had received antibiotics. Status: Acute Code(s): N73.0 - Acute parametritis and pelvic cellulitis Attestations 2 Medical Necessity Statement*: In my professional opinion per admitting diagnosis. 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
[2019-05-01] MEDS: acetaminophen 500 mg Tablet PO (20:56)
[2019-05-02] VITALS (21 sets, daily range): BP systolic 106–139; BP diastolic 64–98; PULSE 65–135; RESP 14–20; TEMP 36.6–38.3; O2SAT 95–100
[2019-05-02] MEDS: D5-NS 0.45% + KCL 20 mEq 20 MEQ/1,000 ML BAG 150 MEQ IV (04:21)
[2019-05-02] MEDS: morphine 4 mg/mL SDV 1 mL 2 MG IVP (04:22)
[2019-05-02] MEDS: piperacillin-tazobactam 3.375 GM in sodium chloride 0.9% (plus) 100 ML IV ×4 (05:56→23:14)
--- NOTE | 2019-05-02 06:56 | P.ANESASSM_ITS ---
Pre-Anesthetic Assessment Pre-Anesthetic Assessment: Height/Weight: Height 1.5 m Weight 47.174 kg Temp Pulse Resp BP Pulse Ox 101 F H 128 H 18 139/98 96 05/02/19 06:30 05/02/19 06:30 05/02/19 06:30 05/02/19 06:30 05/02/19 06:30 Preop Diagnosis: Endometriosis, chronic pelvic pain Proposed Procedure: Operation Date: 05/02/19 07:10 Proposed Procedures p vaginal abcess drainage(Not Applicable) - Erlin Mosher MD Was Beta Omar taken within 24 hours: N/A Last intake: Intake Last Liquid Date 05/01/19 Last Liquid Time 23:30 Last Solid Date 05/01/19 Last Solid Time 21:30 Last Intake: 23:30 Social: Social History: No alcohol Packs per day: 0.5 Pack years: 8 Airway: Submandibular: WNL Cervical ROM: WNL MP: 1 Pulmonary: Pulmonary: None reported CV/HEM: CV/HEM: None reported : : None reported Hepatic: Hepatic: None reported GI: GI: GERD (occ. OTC meds) Metabolic: Metabolic: None reported Musc/skel: Musc/skel: Lower Back Pain and Scoliosis Neuropsych: Neuropsych: Anxiety, Depression and BRADLEY Anesthetic Plan: ASA status: 2 Anesthesia: Anesthesia Evaluation and General Risk of > 500 ml blood loss (7ml/kg in children): No Meds/Allergies Current Medications: Current Medications Generic Name Dose Route Start Last Admin Trade Name Freq PRN Reason Stop Dose Admin Acetaminophen 500 mg 05/01/19 20:07 05/01/19 20:56 Tylenol PO 500 mg Q4H PRN Administration MILD PAIN OR INCR EASE TEMP Potassium Chloride /Dextrose/Sod Cl 20 meq in 1,000 m ls @ 150 mls/hr 05/01/19 17:39 05/02/19 04:21 D5-Ns 0.45% + Richie l 20 Meq IV 150 mls/hr .Q6H40M BLAYNE Administration Piperacillin Sod/T azobactam 100 mls @ 100 mls /hr 05/02/19 00:00 05/02/19 05:56 Sod 3.375 gm/ So dium Chloride IV 100 mls/hr Q6H BLAYNE Administration Protocol Morphine Sulfate 2 mg 05/01/19 17:39 05/02/19 04:22 Morphine IVP 2 mg Q4H PRN Administration SEVERE PAIN PFSH Anesthesia PFSH: Medical History Abnormal uterine bleeding (AUB) Pelvic pain in female Surgical History H/O removal of cyst [address] Mosher History of laparoscopy 2010-for endometriosis 2015- for Mirena removal 01/17/2017-performed by Dr[facility] Mosher at [facility] History of tubal ligation 12/2015- per Dr. Mosher at [facility] Family History Mother Stroke Hyperlipidemia Family history of thyroid problem Hypertension Father Degenerative disc disease Diabetes Unknown Breast cancer maternal great aunt Grandmother Ovarian cancer maternal Uterine cancer maternal Social History Smoking and tobacco status: current every day smoker cigarettes Packs smoked per day: 0.5 Alcohol intake: never Additional social history: well balanced diet Female Reproductive History: Date of last menstrual period: 03/18/19 Data Anesthesia CBC & Chem 7: 05/01/19 09:15 05/01/19 09:15 Other Labs: Laboratory Results - last 48 hr 04/30/19 05/01/19 05/01/19 09:25 09:15 09:15 WBC 12.3 H RBC 3.16 L Hgb 9.9 L Hct 31.8 L MCV 100.6 H MCH 31.3 MCHC 31.1 RDW 14.0 Plt Count 705 H MPV 9.0 Neut % (Auto) 80.3 Lymph % (Auto) 12.2 Emery % (Auto) 5.6 Eos % (Auto) 1.2 Baso % (Auto) 0.4 Neut # (Auto) 9.9 H Lymph # (Auto) 1.5 Emery # (Auto) 0.7 Eos # (Auto) 0.2 Baso # (Auto) 0.1 Nucleated RBC % (auto) 0 Nucleated RBCs # 0.0 Sodium 139 Potassium 4.2 Chloride 103 Carbon Dioxide 23 Anion Gap 17.2 BUN 8 Creatinine 0.5 GFR Calculation 145.9 H Glucose 99 Calculated Osmolality 284 L Lactate Calcium 9.8 Total Bilirubin 0.2 AST 13 ALT 24 Alkaline Phosphatase 244 H Total Protein 7.8 Albumin 3.7 Globulin 4.1 HCG, Qual Urine Color Yellow Urine Appearance Hazy A Urine pH 6 Ur Specific [place] 1.020 Urine Protein Neg Urine Glucose (UA) Norm Urine Ketones 1+ H Urine Blood 3+ H Urine Nitrate Negative Urine Bilirubin Neg Urine Urobilinogen Norm Ur Leukocyte Esterase 2+ H Urine RBC 5-10 H Urine WBC 25-40 H Ur Squamous Epith Cells 0-4 H Urine Bacteria 2+ H Blood Type Rho(D) Type Antibody Screen 05/01/19 05/01/19 05/01/19 09:15 09:39 09:39 WBC RBC Hgb Hct MCV MCH MCHC RDW Plt Count MPV Neut % (Auto) Lymph % (Auto) Emery % (Auto) Eos % (Auto) Baso % (Auto) Neut # (Auto) Lymph # (Auto) Emery # (Auto) Eos # (Auto) Baso # (Auto) Nucleated RBC % (auto) Nucleated RBCs # Sodium Potassium Chloride Carbon Dioxide Anion Gap BUN Creatinine GFR Calculation Glucose Calculated Osmolality Lactate 0.2 L Calcium Total Bilirubin AST ALT Alkaline Phosphatase Total Protein Albumin Globulin HCG, Qual Negative Urine Color Urine Appearance Urine pH Ur Specific [place] Urine Protein Urine Glucose (UA) Urine Ketones Urine Blood Urine Nitrate Urine Bilirubin Urine Urobilinogen Ur Leukocyte Esterase Urine RBC Urine WBC Ur Squamous Epith Cells Urine Bacteria Blood Type B Positive Rho(D) Type Positive Antibody Screen Negative Micro: Microbiology 05/01/19 09:39 Blood Culture - Preliminary Blood SPECIMEN COLLECTED 05/01/19 09:15 Blood Culture - Preliminary Blood SPECIMEN COLLECTED Cardiac Studies: No Data to Display
--- NOTE | 2019-05-02 07:15 | W.PM.OPSUD ---
Surgery/Procedure H&P Update DATE OF PROCEDURE: May 02, 2019 DATE H&P PERFORMED: 05/01/19 H&P UPDATE INFORMATION: I have reviewed H&P completed within last 30 days and I have examined patient prior to procedure PREOP DIAGNOSIS: Endometriosis, chronic pelvic pain PLANNED PROCEDURE: Operation Date: 05/02/19 07:10 Proposed Procedures p vaginal abcess drainage(Not Applicable) - Erlin Mosher MD
[2019-05-02] MEDS: sodium chloride 0.9% 1,000 ML 30 ML IV (07:29)
[2019-05-02] MEDS: midazolam 1 mg/mL INJ 2 mL 2 MG IVP (07:29)
--- NOTE | 2019-05-02 08:36 | PM.OP ---
Operative Report Date of procedure: May 02, 2019 Pre-op Diagnosis: Status post total vaginal hysterectomy, Endometriosis, chronic pelvic pain Post-op Findings: scant serosanguinous fluid Procedure Done: Exam under anesthesia, drainage of scant serosanguinous fluid Pathology: none sent Surgeon: Erlin Mosher MD Anesthesia: General Complications: None Findings: Scant serosanguinous fluid Condition: stable Disposition: PACU Brief History: 28-year-old female status post total vaginal hysterectomy 22 days ago, with pelvic pain, seeing in the ER and a CT scan was performed referring possible pelvic abscess. Procedure: Patient was counseled regarding endometrial biopsy. Was informed of the possible risk but not limited to: Cramping pain during procedure and 1-2 days after procedure, Bleeding, may occur for several days after procedure, Infection, Perforation of uterus, Allergic reaction to medications or instruments used, Vasovagal reaction, Disruption of unknown , Missed abnormal tissue. She signed the informed consent. A timeout protocol was performed prior to initiating the procedure. She denies allergy to Betadine. The patient was placed in dorsal lithotomy position and bimanual exam was performed showing to be normal. A sterile vaginal speculum was inserted, and the vaginal cuff was visualized. No signs of infection noted. A transvaginal ultrasound probe was inserted and small amount of fluid was noted. The left vaginal cuff angle corner suture removed and carefully opened a small section with blunt dissection, no discharge was noted. Then with ultrasound guidance the suction device was inserted and a scant serosanguinous fluid was drained, but no purulent material was noted. The patient was rescan with ultrasound probe and no fluid was noted. A right ovarian cyst of approximately 3 cm was noted. There was minimal bleeding noted. The instruments were removed from vagina removed with goad hemostasis noted. The patient tolerated the procedure well. The patient was taken to the recovery area in stable condition.
[2019-05-02] MEDS: dextrose 5%-lactated ringers 1,000 ML 125 ML IV ×2 (09:41→18:00)
[2019-05-02] MEDS: docusate sodium 100 mg Capsule PO ×2 (09:42→17:59)
[2019-05-02] MEDS: ketorolac 30 mg/mL INJ IVP ×2 (09:42→14:34)
--- NOTE | 2019-05-02 11:05 | PC.CHAP ---
Pastoral Care Encounter/Spiritual Assessment Type of Contact [] Declined storage receipt poster visit [] Patient/Family/Request visit [] Outpatient visit [] Follow-up visit [] Physician referral [] Code/Alert [x] Routine visit [] Staff referral [] Actively dying [] Patient sleeping [] Family support [] [] Out of room [] Palliative care [] [] Receiving care in room [] Pre-surgical visit [] Trauma [] Long length of stay [] ICU visit [] Other: Relational/Emotional Strength [x Patient feels connected with others/family/visitors/staff [] Distress [] Loneliness/isolation [] Abandonment Spirituality of Patient [xx] Person of Antonina [] Attends Episcopalian of their Antonina [] Believes in Prayer [] Reads Bible or Nondenominational materials [] There are Spiritual issues to be addressed Accredited Pharmacy Technician Interventions [x] Prayer [x] Active listening [x] Non-anxious presence [] Spiritual/emotional support [] Crisis/trauma care [] Spiritual counseling [] Bereavement support [] Provided bereavement packet [] Provided Bible/devotional materials [] Provided toy/stuffed animal, coloring book to patient or family member [] Provided Communion [] Anointing/[place] [] Salvation [x] Completed spiritual assessment [] Other: Impact on Illness or Injury [] Angry [] Fearful [] Anxious [] Often cries [] Exhaustion [] Unable to work [] Unable to attend christianity [] Unable to walk/stand [] Unable to read [] Unable to drive [] Unable to eat/drink [] Unable to sleep [] Unable to be with family [] Patient intubated [] Other: Summary patient ready to go home Time spent with patient 10 min 1 visitor
[2019-05-02] MEDS: HYDROcodone-acetaminophen 5-325 mg Tablet PO ×3 (11:50→23:13)
[2019-05-02] MEDS: acetaminophen 325 mg Tablet 650 MG PO ×2 (16:31→22:53)
[2019-05-02] MEDS: ALPRAZolam 0.5 mg Tablet PO (16:31)
[2019-05-03] VITALS: BP 126/74; PULSE 110; RESP 17; TEMP 36.9; O2SAT 95
[2019-05-03] MEDS: dextrose 5%-lactated ringers 1,000 ML 125 ML IV ×2 (01:58→09:02)
[2019-05-03 04:00] VITALS: BP 125/81; PULSE 125; RESP 18; TEMP 38.4; O2SAT 96
[2019-05-03 04:41] LABS: Mean Corpuscular Hemoglobin 31.8 pg (28.0-34.0); Mean Corpuscular Volume 102.5 fL (81-99); Mean Platelet Volume 8.9 fL (7.4-10.4); Platelet Count 531 10^3/cmm (130-400); Red Blood Count 2.83 10^6/uL (4.1-5.3); Red Cell Distribution Width 13.8 % (12.1-15.1); White Blood Count 9.2 10^3/uL (4.0-10.0)
[2019-05-03] MEDS: piperacillin-tazobactam 3.375 GM in sodium chloride 0.9% (plus) 100 ML IV ×2 (05:35→12:20)
[2019-05-03] MEDS: HYDROcodone-acetaminophen 5-325 mg Tablet PO (05:36)
[2019-05-03 07:40] VITALS: BP 125/79; PULSE 112; RESP 20; TEMP 37.8; O2SAT 95
[2019-05-03] MEDS: docusate sodium 100 mg Capsule PO (07:58)
[2019-05-03] MEDS: ALPRAZolam 0.5 mg Tablet PO (07:58)
--- NOTE | 2019-05-03 08:00 | USR_ITS ---
PROCEDURE INFORMATION: Exam: US Abdomen Complete Exam date and time: 05/03/2019 7:40 AM Age: 28 years old Clinical indication: Fever; Additional info: Temp of 101.2 F TECHNIQUE: Imaging protocol: Real-time ultrasound of the abdomen with image documentation. COMPARISON: CT abdomen pelvis w con* [id number] 05/01/2019 10:12 AM FINDINGS: Liver: No focal hepatic mass. Gallbladder: Cholelithiasis. No gallbladder wall edema or pericholecystic fluid. Technologist reported negative sonographic Brooks sign. Common bile duct: Normal caliber of the visualized common bile duct measuring 3 mm in diameter. Pancreas: No acute sonographic abnormality in the visualized pancreas. Kidneys: Subcentimeter nonshadowing echogenic foci in the right kidney. No hydronephrosis. Spleen: Normal size spleen. Aorta: Normal caliber of the visualized proximal abdominal aorta with the distal abdominal aorta obscured by bowel gas. Inferior vena cava: Unremarkable IVC. US/US abdomen complete* [id number] IMPRESSION: 1. Cholelithiasis. 2. Subcentimeter nonshadowing echogenic foci in the right kidney.
--- NOTE | 2019-05-03 08:14 | ANE.PACU2 ---
 Inpatient post-anesthesia follow up: Airway intact: Yes Vital signs: Temperature 100.1 F Pulse Rate [Monito r] 99 Pulse Rate 112 Respiratory Rate 20 Blood Pressure [Ri ght Arm] 136/92 Blood Pressure 125/79 Pulse Oximetry 95 Oxygen Delivery Me thod Room Air Oxygen Flow Rate 8 Fraction of Inspir ed Oxygen Hydration adequate: Yes Nausea and vomiting: No Pain level: 2 Mental status: Baseline
[2019-05-03 09:00] VITALS: RESP 20
[2019-05-03 11:48] VITALS: BP 128/75; PULSE 115; RESP 20; TEMP 37.2; O2SAT 96
--- NOTE | 2019-05-03 12:08 | P.PN_ITS ---
Subjective Subjective: Interval history: Feeling better. Had a bowel movement finally. Eating well Medications: Reviewed: Yes Vitals/I&O/Wt Last Vital Signs Temp 98.9 F 05/03/19 11:48 Pulse 115 H 05/03/19 11:48 Resp 20 H 05/03/19 11:48 BP 128/75 05/03/19 11:48 Pulse Ox 96 05/03/19 11:48 05/02/19 05/03/19 05/03/19 22:59 06:59 14:59 Intake Total 1300 / 2743.0 1100 / 3843.0 933.333 / 933.333 Output Total 2950 / 3455 600 / 4055 1350 / 1350 Balance -1650 / -712.0 500 / -212.0 -416.667 / -416.667 Physical Exam Const: COMMON NORMALS: no apparent distress, average body habitus and oriented x3 GENERAL APPEARANCE: cooperative and well kempt HENMT: COMMON NORMALS: normocephalic and head/scalp atraumatic HEAD & SCALP: normocephalic and atraumatic Neck/C-Spine: COMMON NORMALS: full ROM Chest: COMMONS NORMALS: inspection of chest normal Resp: COMMON NORMALS: normal respiratory effort Cardio: COMMON NORMALS: regular rate and regular rhythm RATE: regular rate RHYTHM: regular rhythm GI: INSPECTION: Yes normal to inspection Neuro: COMMON NORMALS: oriented x3 Psych: APPEARANCE: Yes well kempt Data : 05/03/19 04:20 05/01/19 09:15 Micro: Microbiology 05/01/19 09:39 Blood Culture - Preliminary Blood NEGATIVE TO DATE 05/01/19 09:15 Blood Culture - Preliminary Blood NEGATIVE TO DATE 04/30/19 09:25 Urine Culture - Preliminary Urine,Clean Catch A&P Assessment and plan (1) Acute abscess of female pelvis: Patient refers she is feeling better she did spike fever last night however. We will continue with parenteral antibiotic therapy. An abdominal ultrasound was performed instead of a pelvic ultrasound as he was ordered. 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
[2019-05-03] MEDS: acetaminophen 325 mg Tablet 650 MG PO (12:21)
--- NOTE | 2019-05-03 12:22 | USR_ITS ---
PROCEDURE INFORMATION: Exam: US Pelvis Complete, Transabdominal Exam date and time: 05/03/2019 1:52 PM Age: 28 years old Clinical indication: Pelvic pain; Prior surgery; Surgery date: <1 month; Surgery type: Hysterectomy (3.5 weeks ago); Patient HX: Pelvic abscess drained approximately 2 days ago TECHNIQUE: Imaging protocol: Real-time transabdominal pelvic ultrasound with image documentation. Complete exam. COMPARISON: US pelvic with transvaginal 01/20/2019 2:05 PM FINDINGS: Uterus/cervix: Status post hysterectomy. Right adnexa: Multiple complex cystic structures in the right adnexa, the largest measuring 2.5 cm. Approximate right ovarian measurements are 4.4 x 3.6 x 4.4 cm. Left adnexa: Approximate left ovarian measurements are 3.5 x 2.9 x 3.2 cm. Complex 1.9 cm cystic structure in the left adnexa. Free fluid: Complex free fluid. Bladder: Unremarkable bladder. US/US pelvic complete* [id number] IMPRESSION: 1. Bilateral complex cystic structures in the adnexa, the largest measuring 2.5 cm. 2. Complex free fluid.
[2019-05-03 14:49] VITALS: BP 128/75; PULSE 115; RESP 20; TEMP 37.2; O2SAT 96
== END 2019-05-03 14:50 | disposition home or self-care (01) | DRG 745 ==
LOC: ER 13:55 → MEDSURG 17:19
PROVIDERS: Physician Assistant; Admitting Provider Obstetrics & Gynecology; Emergency Provider Family Medicine; Family Provider Family Medicine; PCP Family Medicine; Visit Provider Obstetrics & Gynecology
PROC: 0UDB7ZX Extraction of Endometrium, Via Natural or Artificial Opening, Diagnostic (ICD-10-PCS; principal; 2019-05-02 07:00)
DX: N73.0 Acute parametritis and pelvic cellulitis (principal); N80.9 Endometriosis, unspecified; Z79.891 Long term (current) use of opiate analgesic; Z91.040 Latex allergy status; Z88.8 Allergy status to other drugs, medicaments and biological substances; Z79.899 Other long term (current) drug therapy; F17.210 Nicotine dependence, cigarettes, uncomplicated
CPT/HCPCS: 12345; 36415; 74177; 76700; 76856; 80053; 81001; 83605; 84703; 85025; 85027; 86850; 86900; 87040; 87086; 96374; 96375; 99283; J0131; J1885; J2001; J2250; J2270; J2405; J2543; J2704; J2710; J2765; J3010; J3490; J7030; J7050; Q9967

== ENCOUNTER → 2019-05-22 14:08 | Outpatient (BNVA) | payer MEDICAID, SELFPAY | PROVIDERS: Family Provider Family Medicine; PCP Family Medicine; Visit Provider Obstetrics & Gynecology | DX: R10.2 Pelvic and perineal pain (principal) | CPT/HCPCS: 76830; 80053; 81000 ==

== ENCOUNTER 2019-05-23 08:59 | Outpatient (CLI) | payer MEDICAID, SELFPAY ==
--- NOTE | 2019-05-23 10:00 | CT_ITS ---
WS: [id number] CT ABDOMEN PELVIS TECHNIQUE: Noncontrast CT of the abdomen and contrast-enhanced CT of the abdomen and pelvis with jde nal and sagittal reformatted images. CLINICAL INFORMATION: pelvic pain COMPARISON: CT May 01, 2019, ultrasound May 22, 2019, and May 03, 2019 DLP: 1379.[address] scans at [facility] use at least one of these dose optimization techniques: automat ed exposure control; mA and/or kV adjustment per patient size (includes targeted exams where dose is matched to clinical indication); or iterative reconstruction. FINDINGS: Prior postoperative changes hysterectomy. Previous described pelvic abscess has been drained and reso lved. No evidence of residual or recurrent drainable fluid collection. Lobulated peripheral enhancing left ovarian cysts the largest measuring 2.1 x 1.7 CM. Additional smaller left ovarian cyst measurin g 9 mm. Mucosal enhancement in the sigmoid colon likely reactive from recent surgery. Mild residual m esenteric edema in the pelvis. Liver is normal in appearance. Normal gallbladder. Normal portal vein and splenic vein. Normal pancre as. Spleen is normal. Normal gastroesophageal junction. Adrenal glands are normal. No hydronephrosis. Normal caliber abdominal aorta. No periaortic lymphadenopathy. Lung bases are well aerated. No eviden ce of small or large bowel obstruction. Notified Dr. Mosher at 05/23/2019 11:[address]/CT abdomen pelvis wo/w [id number] IMPRESSION: 1. Recent postoperative changes hysterectomy. Interval drainage of the pelvic abscess. No evidence of recurrent or residual drainable fluid collection. 2. Left ovarian cysts the largest measuring 2.0 x 1.7 CM. Smaller left ovarian cyst measuring 9 mm. 3. Mild mucosal enhancement in the sigmoid colon likely reactive from recent s urgeries. 4. Mild residual mesenteric edema in the pelvis from recent surgeries. 5. Liver and gallbladder are normal in appearance. 6. Normal renal parenchymal enhancement. No hydronephrosis. 7. No other significant findings.
[2019-05-23] MEDS: iohexol 300 mg/mL 100 mL Btl IV (10:44)
[2019-05-23] MEDS: iohexol 300 mg/mL 50 mL Btl PO (10:44)
== END 2019-05-23 09:00 | disposition home or self-care (01) ==
LOC: RADWPI 09:03
PROVIDERS: Family Provider Family Medicine; PCP Family Medicine; Visit Provider Obstetrics & Gynecology Female Pelvic Medicine and Reconstructive Surgery
DX: R10.2 Pelvic and perineal pain (principal); N83.202 Unspecified ovarian cyst, left side
CPT/HCPCS: 74178

== ENCOUNTER → 2019-10-02 10:44 | Outpatient (BNVA) | payer MEDICAID, SELFPAY | PROVIDERS: Family Provider Family Medicine; PCP Family Medicine; Visit Provider Psychiatry & Neurology Psychiatry | DX: F31.9 Bipolar disorder, unspecified (principal); F41.9 Anxiety disorder, unspecified | CPT/HCPCS: 90792 ==

== ENCOUNTER → 2019-10-05 17:54 | Outpatient (BNVA) | payer MEDICAID, SELFPAY | PROVIDERS: Family Provider Family Medicine; PCP Family Medicine; Visit Provider Nurse Practitioner | DX: R30.0 Dysuria (principal) | CPT/HCPCS: 81000 ==

== ENCOUNTER → 2019-10-30 10:40 | Outpatient (BNVA) | payer MEDICAID, SELFPAY | PROVIDERS: Family Provider Family Medicine; PCP Family Medicine; Visit Provider Psychiatry & Neurology Psychiatry | DX: F31.9 Bipolar disorder, unspecified (principal); F31.0 Bipolar disorder, current episode hypomanic; Z79.899 Other long term (current) drug therapy | CPT/HCPCS: 99214 ==

== ENCOUNTER → 2019-11-20 11:11 | Outpatient (BNVA) | payer MEDICAID, SELFPAY | PROVIDERS: Family Provider Family Medicine; PCP Family Medicine; Visit Provider Psychiatry & Neurology Psychiatry | DX: F31.0 Bipolar disorder, current episode hypomanic (principal); Z79.899 Other long term (current) drug therapy | CPT/HCPCS: 80178 ==

== ENCOUNTER → 2019-12-11 10:58 | Outpatient (BNVA) | payer MEDICAID, SELFPAY | PROVIDERS: Family Provider Family Medicine; PCP Family Medicine; Visit Provider Psychiatry & Neurology Psychiatry | DX: F31.9 Bipolar disorder, unspecified (principal) | CPT/HCPCS: 99214 ==

== ENCOUNTER → 2019-12-23 17:21 | Outpatient (BNVA) | payer MEDICAID, SELFPAY | PROVIDERS: Family Provider Family Medicine; PCP Family Medicine; Visit Provider Nurse Practitioner Family | DX: N39.0 Urinary tract infection, site not specified (principal); R31.9 Hematuria, unspecified | CPT/HCPCS: 81000 ==

== ENCOUNTER → 2020-01-27 08:15 | Outpatient (BNVA) | payer MEDICAID, SELFPAY | PROVIDERS: Family Provider Family Medicine; PCP Family Medicine; Visit Provider Psychiatry & Neurology Psychiatry | DX: F31.0 Bipolar disorder, current episode hypomanic (principal) | CPT/HCPCS: 99214 ==

== ENCOUNTER 2020-03-25 16:28 | Emergency (ER) | payer MEDICAID, SELFPAY ==
[2020-03-25 16:34] VITALS: BP 129/81; PULSE 106; RESP 18; TEMP 37; O2SAT 98; BMI 20.4
--- NOTE | 2020-03-25 16:40 | ED_ITS ---
HPI - Back Pain/Injury General: Chief Complaint: Back Pain/Injury Stated Complaint: BACK PAIN Time Seen by Provider: 03/25/20 16:40 History of Present Illness: HPI Narrative: Patient is a 29-year-old female comes to the ED with lower back pain. Symptoms started approximately 2 weeks ago. She denies any pain radiating down into her legs. She rates her pain an 8 out of 10. Denies any injury, accident to cause pain. Patient states that 1 morning she woke up and then lower back pain. Patient says she has a history of a slipped disc. Denies any numbness tingling to the pelvic region, bladder or bowel incontinence or weakness to lower extremities. Associated symptoms: Deny abdominal pain, chills, dysuria, fatigue, fever(s), hematuria, nausea or vomiting Review of Systems Const: Denies: fever(s), chills or fatigue Eyes: Denies: change in vision or eye discomfort ENMT: Denies: throat pain, odynophagia, nasal discharge or nasal congestion Card: Denies: chest pain, palpitations, edema, swelling of feet/ankles, dyspnea on exertion or orthopnea Resp: Denies: dyspnea, productive cough or non-productive cough GI: Denies: abdominal pain, nausea, vomiting, diarrhea, constipation or hematochezia : Denies: flank pain, dysuria or hematuria Musc: Reports: back pain; Denies: neck pain or extremity swelling Skin/Breast: Denies: rash or new lesions Neuro: Denies: headache(s), numbness in extremities or weakness in extremities PFS ED PFSH: Medical History Abnormal uterine bleeding (AUB) Anxiety Bipolar disorder, unspecified Other halfway (current) drug therapy Pelvic pain in female Surgical History H/O removal of cyst [address] Mosher History of laparoscopy 2010-for endometriosis 2015- for Mirena removal 01/17/2017-performed by Dr. Mosher at [facility] History of tubal ligation 12/2015- per Dr. Mosher at [facility] Family History Mother Stroke Hyperlipidemia Family history of thyroid problem Hypertension Father Degenerative disc disease Diabetes Unknown Breast cancer maternal great aunt Grandmother Ovarian cancer maternal Uterine cancer maternal Social History Smoking and tobacco status: former smoker Quit status (tobacco): has quit using tobacco Year quit tobacco: 05/02/2019 Alcohol intake: never Current gender identity: Female Additional social history: well balanced diet Physical Exam Const: COMMON NORMALS: no acute distress, patient oriented x3 and alert GENERAL APPEARANCE: cooperative and comfortable HENMT: COMMON NORMALS: normocephalic HEAD & SCALP: normocephalic MOUTH: Normal oral and palatal mucosa present THROAT: posterior oropharynx normal and uvula midline Neck/C-Spine: COMMON NORMALS: supple GENERAL: Yes normal visual inspection Resp: COMMON NORMALS: normal respiratory effort, No retractions, No use of accessory muscles and clear to auscultation bilaterally AUSCULTATION: clear to auscultation bilaterally Cardio: COMMON NORMALS: regular rate, regular rhythm, S1 normal heart sound present, S2 normal heart sound present, No gallops present (Cardio), No clicks present (Cardio), No murmurs present (Cardio) and Peripheral pulses 2+ throughout RATE: regular rate RHYTHM: regular rhythm HEART SOUNDS: S1 normal heart sound present and S2 normal heart sound present PERIPHERAL PULSES: Peripheral pulses 2+ throughout GI: COMMON NORMALS: Normal to inspection, nondistended, normoactive bowel alice nds present, Soft to palpation, non-tender and no masses PALPATION: Yes Soft to palpation : COMMON NORMALS: Yes no CVA tenderness BLADDER/KIDNEY EXAM: Yes no CVA tenderness Back/Pelvis: COMMON NORMALS: no CVA tenderness LUMBAR SPINE/LOWER BACK: No lumbar spinal tenderness, Yes paraspinal muscle tenderness Lumbar paraspinal muscle tenderness: right Right lumbar paraspinal muscle tenderness: L1 and L2 and Yes other soft tissue findings Other lumbar soft tissue findings laterality: right Right other lumbar soft tissue findings details: tenderness (Right latissimus dorsi muscle tenderness) Extremity: COMMON NORMALS: normal to inspection Neuro: COMMON NORMALS: patient oriented x3 and moves all extremities SENSORIUM/ORIENTATION: Yes alert Skin: GENERAL SKIN EXAM: dry skin Course Vital Signs: Vital signs: Vital Signs Temperature 98.6 F 03/25/20 16:34 Pulse Rate 105 H 03/25/20 17:00 Respiratory Rate 18 03/25/20 16:34 Blood Pressure 106/74 03/25/20 17:00 Pulse Oximetry 96 03/25/20 17:00 MDM - Back Pain/Injury MDM Narrative: Medical decision making narrative: Patient is a 29-year-old fe male comes to the ED with lower back pain for the last 2 weeks. Denies any injury, trauma or motor vehicle accident to cause pain. Patient says she woke up 1 morning with pain. Denies any cauda equina symptoms and does not have any pain radiating down her legs. Lumbar paraspinal tenderness on right side upon exam. Patient was given a shot of Toradol and Norflex and discharged home with a prescription for meloxicam and Robaxin. She was told to stretch her lower back daily in apply cold pack or heat to help with symptoms. Follow-up with PCP in 7 to 10 days for reevaluation. Return to ED precautions given. Patient understood and agreed with plan. Discharge Plan Discharge Patient Disposition: Home Clinical Impression: Strain of lumbar region Qualifiers: Encounter type: initial encounter Qualified Code(s): S39.012A - Strain of muscle, fascia and tendon of lower back, initial encounter Condition: Stable Prescriptions: No Action ondansetron HCl [Zofran] 4 mg tablet 4 mg PO Q8H PRN (Reason: nausea/vomiting) RF: 0 cetirizine [Zyrtec] 10 mg tablet 10 mg PO DAILY PRN (Reason: Allergy Symptoms) RF: 0 trazodone 50 mg tablet 50 mg PO BEDTIME PRN (Reason: Sleep) RF: 0 tramadol 50 mg tablet 50 mg PO QID PRN (Reason: Pain) RF: 0 gabapentin 300 mg capsule 600 mg PO TID@06,12,18 RF: 0 Discharge Orders: Discharge ED (Routine); Ordered 03/25/20 Ordered By: James Tyson Referrals: Joaquin Mak MD [Primary Care Provider] - Discharge Diet: Regular Discharge Activity: Increase activity as tolerated Patient Instructions: Low Back Strain (ED), Acute Low Back Pain (ED) Activity Restrictions/Additional Instructions: Follow-up with medical provider as directed in 7 to 10 days for reevaluation. Take medications as prescribed. Robaxin is a muscle relaxer and can cause some drowsiness so use at night before bed. If you do use Robaxin during the day use with caution due to its drowsiness side effects. Apply cold pack or heat on lower back and stretch lower back daily. Massage sore muscles on lower back daily as well.up with symptoms. Return to the ER or your medical provider if condition worsens. Please read and understand discharge instructions. If any questions, please ask. Coding Level of Care Code ED Bowling Ball Weigher And Packer for Mark Fwd Exam Comprehensive
[2020-03-25 16:50] VITALS: PULSE 100; O2SAT 97
[2020-03-25] MEDS: ketorolac 60 mg/2 mL INJ IM (16:53)
[2020-03-25] MEDS: orphenadrine 30 mg/mL Inj 2 mL 60 MG IM (16:53)
[2020-03-25 17:00] VITALS: BP 106/74; PULSE 105; O2SAT 96
== END 2020-03-25 17:01 | disposition home or self-care (01) ==
PROVIDERS: Emergency Provider Physician Assistant; PCP Family Medicine
DX: S39.012A Strain of muscle, fascia and tendon of lower back, initial encounter (principal); Z87.891 Personal history of nicotine dependence; X58.XXXA Exposure to other specified factors, initial encounter
CPT/HCPCS: 12345; 96372; 99281; 99283; J1885; J2360

== ENCOUNTER 2020-04-08 12:10 | Emergency (ER) | payer MEDICAID, SELFPAY ==
--- NOTE | 2020-04-08 12:20 | XR_ITS ---
WS: [id number] PORTABLE CHEST HISTORY: seizure COMPARISON: 01/20/2019 Lungs are clear and well expanded. No pleural effusion or pneumothorax. Cardiac size: Normal. Mediastinum/Aorta: Normal mediastinum. No osseous abnormality seen. XR/XR chest 1V portable [id number] IMPRESSION: Unremarkable portable chest.
--- NOTE | 2020-04-08 12:20 | CT_ITS ---
WS: [id number] CT HEAD NONCONTRAST HISTORY: new onset seizure TECHNIQUE: Contiguous axial imaging performed through the brain in 2.5 mm imaging. Bone and soft tiss ue windows. Sagittal and coronal reformats reviewed. All CT scans at [facility] use at ast one of these dose optimization techniques: automated exposure control; mA and/or kV adjustment pe r patient size (includes targeted exams where dose is matched to clinical indication); or iterative r econstruction. DLP: 707.73 mGy.cm COMPARISON: 08/15/2007 No acute intracranial hemorrhage, midline shift or mass effect. No atrophy or prior infarcts or herniation. Ventricles: Normal size with no hydrocephalus. Paranasal sinuses: As visualized are clear. Mastoid air cells: Well pneumatized. Calvarium and scalp: Skull is intact with no soft tissue edema or swelling. CT/CT head wo con* [id number] IMPRESSION: Negative head CT.
[2020-04-08 12:24] VITALS: BP 134/92; PULSE 118; RESP 18; TEMP 37.1; O2SAT 97; BMI 21.6
[2020-04-08] MEDS: sodium chloride 0.9% 1,000 ML 999 ML IV (12:26)
[2020-04-08 12:29] VITALS: BP 132/90; PULSE 114; RESP 15; O2SAT 98
[2020-04-08 12:32] LABS: Basophils # 0.1 10^3/uL (0.0-0.1); Basophils % 0.9 %; Eosinophils # 0.2 10^3/uL (0.0-0.8); Eosinophils % 2.3 %; Hematocrit 44.4 % (37.0-47.0); Hemoglobin 13.2 g/dL (11.5-15.3); Lymphocytes # 4.6 10^3/uL (0.8-4.8); Mean Corpuscular HGB Conc 29.7 g/dL (30.0-36.0); Mean Corpuscular Hemoglobin 29.3 pg (28.0-34.0); Mean Corpuscular Volume 98.4 fL (81-99); Mean Platelet Volume 9.8 fL (7.4-10.4); Monocytes # 0.7 10^3/uL (0.2-0.9); Monocytes % 8.5 %; Neutrophils # 2.16 10^3/uL (1.8-7.7); Nucleated Red Blood Cells % 0 %; Platelet Count 429 10^3/cmm (130-400); Red Blood Count 4.51 10^6/uL (4.1-5.3); Red Cell Distribution Width 14.7 % (12.1-15.1); White Blood Count 7.7 10^3/uL (4.0-10.0)
--- NOTE | 2020-04-08 12:35 | ECG_ITS ---
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1990 Requested By: Shruthi Hess Order Number: [id number] Reading MD: THOR SALGADO Measurements Intervals [place] Rate: 117 P: 51 DE: 165 QRS: 13 QRSD: 86 T: -66 QT: 341 QTc: 476 Interpretive Statements SINUS TACHYCARDIA POSSIBLE LEFT ATRIAL ENLARGEMENT [-0.1mV P WAVE IN V1/V2] SEPTAL MYOCARDIAL INFARCTION , PROBABLY OLD [40+ ms Q WAVE IN V1/V2] MODERATE T-WAVE ABNORMALITY, CONSIDER INFERIOR ISCHEMIA [-0.1+ mV T WAVE IN II/aVF] Compared to ECG 01/20/2019 13:15:54 Myocardial infarct finding now present Possible ischemia now present Sinus rhythm no longer present Sinus arrhythmia no longer present T-wave abnormality still present Electronically Signed On 04-08-2020 18:17:06 CELLAR WORKER by THOR SALGADO [id number] f
[2020-04-08 12:53] LABS: Alanine Aminotransferase 19 U/L (0-33); Albumin Level 4.5 g/dL (3.5-5.2); Alkaline Phosphatase 94 IU/L (35-105); Anion Gap 24.8 (5-19); Aspartate Amino Transferase 17 U/L (0-32); Blood Urea Nitrogen 9 mg/dL (6-20); Calcium 8.9 mg/dL (8.5-10.5); Carbon Dioxide 20 mmol/L (22-29); Chloride 99 mmol/L (98-107); Globulin 2.9 g/dL (1.3-4.6); Glomerular Filtration Rate 84.2 mL/min (90-130); Glucose 88 mg/dL (65-115); Osmolality Calculated 288 mOsm/kg (285-295); Potassium 3.8 mmol/L (3.5-5.1); Sodium 140 mmol/L (136-145); Total Bilirubin 0.6 mg/dL (0.15-1.2); Total Protein 7.4 g/dL (6.6-8.7)
[2020-04-08] MEDS: dextrose 10% 1,000 ML 125 ML IV (12:54)
[2020-04-08 14:02] LABS: Add Urine Microscopic? NO
[2020-04-08] MEDS: diazePAM 5 mg Tablet PO (14:25)
[2020-04-08] MEDS: ketorolac 30 mg/mL INJ 15 MG IVP (14:26)
[2020-04-08 14:28] LABS: Bilirubin Urine Neg (Negative); Blood Urine Neg (Negative); Glucose Urine UA Norm (Normal); Ketones Urine Negative (Negative); Leukocyte Esterase Urine Negative (Negative); Nitrate Urine Negative (Negative); Protein Urine Neg (Negative); Specific Gravity, Urine 1.005 (1.005-1.030); Urine Appearance Clear (CLEAR); Urine Color Colorless (Yellow); Urobilinogen Urine Norm (Negative); pH Urine 6.5 (5-7)
[2020-04-08 14:32] VITALS: BP 137/98; PULSE 92; RESP 18; O2SAT 100
--- NOTE | 2020-04-08 23:58 | W.ED.SEIZURE ---
HPI - Seizure General: Chief Complaint: Seizure Stated Complaint: SEIZURE Time Seen by Provider: 04/08/20 12:15 History of Present Illness: HPI Narrative: This patient is a 29-year-old female who comes in with 2 family members. They were in the car at the gas station. The patient was in the passenger seat. She had sudden onset of seizure activity. Her significant other is a edge inker heels and felt confident that this was seizure activity. She does not have a seizure history. She had been in her normal state of good health prior to that however had been complaining about muscle strain in her left shoulder and neck. They had a water line break in their house and had been doing a lot of cleaning. She had had some sleep deprivation. She does take tramadol for chronic pain in her back. Her primary care doctor is Dr. Mak. On my initial evaluation she was quite postictal and would open her eyes but would not answer questions. MD complaint: seizure Onset (ago): unknown (Just prior to arrival) Description of Episode: loss of consciousness, tonic-clonic movement and post-event confusion -: second(s) (30) Witnessed: Yes - by Bystander (water resources project manager) Trauma: No Seizure History: No Place: in car Possible Precipitating Event: lack of sleep, stress, medication (Tramadol) and other (History of hypoglycemic episodes but never seizure) Treatments prior to arrival: none Review of Systems General: Reports: ROS unobtainable due to mental status [facility] ED PFSH: Medical History Abnormal uterine bleeding (AUB) Anxiety Bipolar disorder, unspecified Other group home (current) drug therapy Pelvic pain in female Surgical History H/O removal of cyst [address] Mosher History of laparoscopy 2010-for endometriosis 2015- for Mirena removal 01/17/2017-performed by Dr. Mosher at [facility] History of tubal ligation 12/2015- per Dr. Mosher at [facility] Family History Mother Stroke Hyperlipidemia Family history of thyroid problem Hypertension Father Degenerative disc disease Diabetes Unknown Breast cancer maternal great aunt Grandmother Ovarian cancer maternal Uterine cancer maternal Social History Smoking and tobacco status: former smoker Quit status (tobacco): has quit using tobacco Year quit tobacco: 05/02/2019 Alcohol intake: never Current gender identity: Female Additional social history: well balanced diet Physical Exam Const: COMMON NORMALS: no acute distress GENERAL APPEARANCE: comfortable and lethargic NUTRITIONAL APPEARANCE: thin ORIENTATION/CONSCIOUSNESS: Yes lethargic OTHER: Opens eyes to voice. Does not follow commands. Localizes to pain. No vocal response. HENMT: HEAD & SCALP: normal to inspection FACE & SINUS: normal facial exam Eye: GENERAL EYE: appearance normal, both eyes and all related structures Neck/C-Spine: COMMON NORMALS: supple, no meningeal signs and no JVD OTHER: Tender left trapezius Chest: COMMONS NORMALS: normal inspection of the chest Resp: COMMON NORMALS: normal respiratory effort, No use of accessory muscles and clear to auscultation bilaterally AUSCULTATION: clear to auscultation bilaterally Cardio: COMMON NORMALS: no JVD, regular rate, regular rhythm and No murmurs present (Cardio) RATE: regular rate RHYTHM: regular rhythm GI: COMMON NORMALS: Normal to inspection, nondistended, normoactive bowel sounds present, Soft to palpation and non-tender INSPECTION: Yes normal to inspection AUSCULTATION: Yes normoactive bowel sounds PALPATION: Yes Soft to palpation Back/Pelvis: COMMON NORMALS: thoracic and lumbar spine normal to inspection Extremity: COMMON NORMALS: normal to inspection Neuro: COMMON NORMALS: moves all extremities, no focal motor deficits and no sensory deficits noted SENSORIUM/ORIENTATION: Yes lethargic MENINGEAL SIGNS: Yes no meningeal signs Psych: COMMON NORMALS: mental status grossly normal, cooperative and normal affect Skin: COMMON NORMALS: no rashes or lesions noted and turgor normal GENERAL SKIN EXAM: no rashes or lesions noted and turgor normal Course ED course: Patient brought in after new onset seizure. She was noted to have a blood sugar of 68 which is definitely on the low side particularly after having a seizure. She does say that she has a history of hypoglycemic episodes. She also is on tramadol and has had sleep deprivation and stress. We discussed that all of these have seizure threshold lowering potential. CT was negative. Labs otherwise were negative. We discussed that I wanted her to stop taking the tramadol. Because she is taking it for chronic pain I instead prescribed her a small number of hydrocodone. She has taken this before. I told her that she needs to talk to Dr. Mak about whether to continue the tramadol or what other options she has for treatment of her pain. She understands that after 1 seizure we do not start antiseizure medications. She also understands that she is not to drive after a seizure. We discussed other activities that could be dangerous if she were to have another seizure. Vital Signs: Vital signs: Vital Signs Temperature 98.8 F 04/08/20 12:24 Pulse Rate 92 04/08/20 14:32 Respiratory Rate 18 04/08/20 14:32 Blood Pressure 137/98 04/08/20 14:32 Pulse Oximetry 100 04/08/20 14:32 MDM - Seizure MDM Narrative: Medical decision making narrative: Seizure, syncope, hypoglycemia, nonepileptic seizure. Lab Data: Labs: Lab Results 04/08/20 04/08/20 04/08/20 Range/Units 12:15 12:15 13:52 WBC 7.7 (4.0-10.0) 10^3/ uL RBC 4.51 (4.1-5.3) 10^6/u L Hgb 13.2 (11.5-15.3) g/dL Hct 44.4 (37.0-47.0) % MCV 98.4 (81-99) fL MCH 29.3 (28.0-34.0) pg MCHC 29.7 L (30.0-36.0) g/dL RDW 14.7 (12.1-15.1) % Plt Count 429 H (130-400) 10^3/c mm MPV 9.8 (7.4-10.4) fL Neut % (Auto) 28.0 % Lymph % (Auto) 60.0 % [place] % (Auto) 8.5 % Eos % (Auto) 2.3 % Baso % (Auto) 0.9 % Neut # (Auto) 2.16 (1.8-7.7) 10^3/u L Lymph # (Auto) 4.6 (0.8-4.8) 10^3/u L [place] # (Auto) 0.7 (0.2-0.9) 10^3/u L Eos # (Auto) 0.2 (0.0-0.8) 10^3/u L Baso # (Auto) 0.1 (0.0-0.1) 10^3/u L Nucleated RBC % (a uto) 0 % Nucleated RBCs # 0.0 /100WBC Sodium 140 (136-145) mmol/L Potassium 3.8 (3.5-5.1) mmol/L Chloride 99 (98-107) mmol/L Carbon Dioxide 20 L (22-29) mmol/L Anion Gap 24.8 H (5-19) BUN 9 (6-20) mg/dL Creatinine 0.8 (0.5-0.9) mg/dL GFR Calculation 84.2 L (90-130) mL/min Glucose 88 (65-115) mg/dL Calculated Osmolal ity 288 (285-295) mOsm/k g Calcium 8.9 (8.5-10.5) mg/dL Total Bilirubin 0.6 (0.15-1.2) mg/dL AST 17 (0-32) U/L ALT 19 (0-33) U/L Alkaline Phosphata se 94 (35-105) IU/L Total Protein 7.4 (6.6-8.7) g/dL Albumin 4.5 (3.5-5.2) g/dL Globulin 2.9 (1.3-4.6) g/dL Urine Color Colorless (Yellow) Urine Appearance Clear (CLEAR) Urine pH 6.5 (5-7) Ur Specific Gravit y 1.005 (1.005-1.030) Urine Protein Neg (Negative) Urine Glucose (UA) Norm (Normal) Urine Ketones Negative (Negative) Urine Blood Neg (Negative) Urine Nitrate Negative (Negative) Urine Bilirubin Neg (Negative) Urine Urobilinogen Norm (Negative) mg/dL Ur Leukocyte Adriana ase Negative (Negative) Discharge Plan Discharge Patient Disposition: Home Clinical Impression: New onset seizure Acute cervical myofascial strain Qualifiers: Encounter type: initial encounter Qualified Code(s): S16.1XXA - Strain of muscle, fascia and tendon at neck level, initial encounter Condition: Stable Prescriptions: New hydrocodone-acetaminophen 5-325 mg tablet 1 tab PO Q6H PRN (Reason: pain) Qty: 10 RF: 0 Discontinued tramadol 50 mg tablet 50 mg PO QID PRN (Reason: Pain) RF: 0 No Action ondansetron HCl [Zofran] 4 mg tablet 4 mg PO Q8H PRN (Reason: nausea/vomiting) RF: 0 cetirizine [Zyrtec] 10 mg tablet 10 mg PO DAILY PRN (Reason: Allergy Symptoms) RF: 0 trazodone 50 mg tablet 50 mg PO BEDTIME PRN (Reason: Sleep) RF: 0 gabapentin 300 mg capsule 600 mg PO TID@06,,18 RF: 0 Discharge Orders: Discharge ED (Routine); Ordered 04/08/20 Ordered By: Shruthi Gould Referrals: Joaquin Mak MD [Primary Care Provider] - Discharge Diet: Advance as tolerated Discharge Activity: Resume usual activity Patient Instructions: Opioid Safety Activity Restrictions/Additional Instructions: Follow up with Dr. Mak to discuss the episode that occurred today. No driving and use caution with climbing, swimming, working with machinery or fire. Make sure to get enough sleep. Stop the tramadol until you can see Dr. Mak to discuss it. Eat regular snacks to keep your blood sugar from dropping. Return to the ED if new symptoms or another episode of seizure. Coding Level of Care Code ED Dsp Engineer for Mark Berg
== END 2020-04-08 14:34 | disposition home or self-care (01) ==
PROVIDERS: Emergency Provider Emergency Medicine; PCP Family Medicine
DX: G40.89 Other seizures (principal); S16.1XXA Strain of muscle, fascia and tendon at neck level, initial encounter; Z87.891 Personal history of nicotine dependence; X58.XXXA Exposure to other specified factors, initial encounter
CPT/HCPCS: 70450; 71045; 80053; 81003; 85025; 93005; 96361; 96374; 99283; J1885; J7030

== ENCOUNTER 2020-04-21 18:03 | Emergency (ER) | payer MEDICAID, SELFPAY ==
[2020-04-21 18:04] VITALS: BP 155/105; PULSE 82; RESP 18; TEMP 36.8; O2SAT 97; BMI 24.2
[2020-04-21 18:15] VITALS: BP 155/105; PULSE 81; RESP 18; O2SAT 100
--- NOTE | 2020-04-21 18:15 | ED_ITS ---
HPI - Seizure General: Chief Complaint: Seizure Stated Complaint: SEIZURES Time Seen by Provider: 04/21/20 18:03 Source: patient and EMS Mode of arrival: EMS Limitations: no limitations History of Present Illness: HPI Narrative: 29-year-old female who was seen here 2 weeks ago for a first-time seizure. Patient had a normal head CT and normal blood work. The patient had a seizure roughly 30 minutes that lasted 30 seconds. Patient had a post ictal and is now starting, round answer some my questions. Patient denies any headache states she does feel tired. Denies any vomiting or diarrhea. Denies hitting her head. Seizure History: No Associated symptoms: Deny chest pain, chills or fever(s) Review of Systems Const: Denies: fever(s), chills, body aches or change in appetite Eyes: Denies: blurry vision or eye discomfort ENMT: Denies: throat pain or dental pain Card: Denies: chest pain Resp: Denies: dyspnea GI: Denies: abdominal pain, nausea, vomiting or diarrhea : Denies: dysuria Musc: Denies: neck pain or back pain Skin/Breast: Denies: rash Neuro: Reports: seizure-like activity; Denies: headache(s) Psych: Denies: depression Damien/Lymph: Denies: easy bruising All/Imm: Denies: urticaria PFSH ED PFSH: Medical History Abnormal uterine bleeding (AUB) Anxiety Bipolar disorder, unspecified 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 Mosher History of laparoscopy 2010-for endometriosis 2015- for Mirena removal 01/17/2017-performed by Dr. Mosher at [facility] History of tubal ligation 12/2015- per Dr. Mosher at [facility] Family History Mother Stroke Hyperlipidemia Family history of thyroid problem Hypertension Father Degenerative disc disease Diabetes Unknown Breast cancer maternal great aunt Grandmother Ovarian cancer maternal Uterine cancer maternal Social History Smoking and tobacco status: former smoker Quit status (tobacco): has quit using tobacco Year quit tobacco: 05/02/2019 Alcohol intake: never Current gender identity: Female Additional social history: well balanced diet Physical Exam Const: COMMON NORMALS: no acute distress, patient oriented x3 and healthy appearing HENMT: COMMON NORMALS: normocephalic and atraumatic HEAD & SCALP: normocephalic and atraumatic Eye: COMMON NORMALS: Equal, round and reactive pupils present and EOMs intact bilaterally PUPIL: Yes Equal, round and reactive pupils present Neck/C-Spine: COMMON NORMALS: full ROM and supple Chest: COMMONS NORMALS: normal inspection of the chest and normal palpation of entire chest wall Resp: COMMON NORMALS: normal respiratory effort, No retractions, No use of accessory muscles and clear to auscultation bilaterally AUSCULTATION: clear to auscultation bilaterally Cardio: COMMON NORMALS: regular rate, regular rhythm and No murmurs present (Cardio) RATE: regular rate RHYTHM: regular rhythm GI: COMMON NORMALS: Normal to inspection, nondistended, normoactive bowel sounds present, Soft to palpation, non-tender and no masses PALPATION: Yes Soft to palpation Extremity: COMMON NORMALS: normal to inspection and full ROM Neuro: COMMON NORMALS: patient oriented x3, moves all extremities and no focal motor deficits Psych: COMMON NORMALS: mental status grossly normal, Normal thought process present and cooperative THOUGHT PROCESS: Normal thought process present Skin: COMMON NORMALS: no rashes or lesions noted and no wounds GENERAL SKIN EXAM: no rashes or lesions noted Course Vital Signs: Vital signs: Vital Signs Temperature 98.3 F 04/21/20 18:04 Pulse Rate 81 04/21/20 21:16 Respiratory Rate 16 04/21/20 21:16 Blood Pressure 109/81 04/21/20 21:16 Pulse Oximetry 97 04/21/20 21:16 MDM - Seizure MDM Narrative: Medical decision making narrative: Patient presents here with seizure. Patient's been well-appearing here and CT head and CT angio normal. Patient blood work is normal as well. She has no signs of meningitis. We will start her on Keppra as this is her second and possible seizure. We will get her follow-up with neurology and she is return if worsening. She understands agrees to plan. Lab Data: Labs: Lab Results 04/21/20 04/21/20 04/21/20 Range/Units 18:00 18:00 20:18 WBC 6.0 (4.0-10.0) 10^3/ uL RBC 4.43 (4.1-5.3) 10^6/u L Hgb 13.1 (11.5-15.3) g/dL Hct 41.4 (37.0-47.0) % MCV 93.5 (81-99) fL MCH 29.6 (28.0-34.0) pg MCHC 31.6 (30.0-36.0) g/dL RDW 14.3 (12.1-15.1) % Plt Count 436 H (130-400) 10^3/c mm MPV 10.7 H (7.4-10.4) fL Neut % (Auto) 60.3 % Lymph % (Auto) 32.8 % Christian % (Auto) 5.9 % Eos % (Auto) 0.3 % Baso % (Auto) 0.5 % Neut # (Auto) 3.61 (1.8-7.7) 10^3/u L Lymph # (Auto) 2.0 (0.8-4.8) 10^3/u L Christian # (Auto) 0.4 (0.2-0.9) 10^3/u L Eos # (Auto) 0.0 (0.0-0.8) 10^3/u L Baso # (Auto) 0.0 (0.0-0.1) 10^3/u L Nucleated RBC % (a uto) 0 % Nucleated RBCs # 0.0 /100WBC Sodium 138 (136-145) mmol/L Potassium 4.0 (3.5-5.1) mmol/L Chloride 103 (98-107) mmol/L Carbon Dioxide 25 (22-29) mmol/L Anion Gap 14.0 (5-19) BUN 6 (6-20) mg/dL Creatinine 0.7 (0.5-0.9) mg/dL GFR Calculation 98.3 (90-130) mL/min Glucose 82 (65-115) mg/dL Calculated Osmolal ity 283 L (285-295) mOsm/k g Calcium 9.9 (8.5-10.5) mg/dL HCG, Qual Negative (Negative) Urine Opiates Scre en (Negative) ng/mL Ur Barbiturates Sc reen (Negative) ng/mL Ur Phencyclidine S crn (Negative) ng/mL Ur Amphetamines Sc reen (Negative) ng/mL U Benzodiazepines Scrn (Negative) ng/mL Urine Cocaine Scre en (Negative) ng/mL U Marijuana (THC) Screen (Negative) ng/mL 04/21/20 Range/Units 20:18 WBC (4.0-10.0) 10^3/ uL RBC (4.1-5.3) 10^6/u L Hgb (11.5-15.3) g/dL Hct (37.0-47.0) % MCV (81-99) fL MCH (28.0-34.0) pg MCHC (30.0-36.0) g/dL RDW (12.1-15.1) % Plt Count (130-400) 10^3/c mm MPV (7.4-10.4) fL Neut % (Auto) % Lymph % (Auto) % Christian % (Auto) % Eos % (Auto) % Baso % (Auto) % Neut # (Auto) (1.8-7.7) 10^3/u L Lymph # (Auto) (0.8-4.8) 10^3/u L Christian # (Auto) (0.2-0.9) 10^3/u L Eos # (Auto) (0.0-0.8) 10^3/u L Baso # (Auto) (0.0-0.1) 10^3/u L Nucleated RBC % (a uto) % Nucleated RBCs # /100WBC Sodium (136-145) mmol/L Potassium (3.5-5.1) mmol/L Chloride (98-107) mmol/L Carbon Dioxide (22-29) mmol/L Anion Gap (5-19) BUN (6-20) mg/dL Creatinine (0.5-0.9) mg/dL GFR Calculation (90-130) mL/min Glucose (65-115) mg/dL Calculated Osmolal ity (285-295) mOsm/k g Calcium (8.5-10.5) mg/dL HCG, Qual (Negative) Urine Opiates Scre en Positive H (Negative) ng/mL Ur Barbiturates Sc reen Negative (Negative) ng/mL Ur Phencyclidine S crn Negative (Negative) ng/mL Ur Amphetamines Sc reen Negative (Negative) ng/mL U Benzodiazepines Scrn Negative (Negative) ng/mL Urine Cocaine Scre en Negative (Negative) ng/mL U Marijuana (THC) Screen Negative (Negative) ng/mL Imaging Data^: CT Head: Attestation: I personally reviewed and interpreted this imaging study as follows: Radiologist's impression: [facility] [address] [place] [address]. [place] [address] CT Scan Report Signed Patient: Mary Nesbitt Unit #: [id number] : 1990 Age/Sex: 29 / F ADM Date: 04/21/20 Loc: ER Room/Bed: Attending Dr: Ordering Provider/Ordering MD: Ramirez Elizabeth MD Date of Service: 04/21/20 Procedure(s): CT head wo con* [id number] Accession Number(s): [id number] Report Number: [id number] PROCEDURE INFORMATION: Exam: CT Head Without Contrast Exam date and time: 04/21/2020 7:41 PM Age: 29 years old Clinical indication: Pain; Patient HX: Headache, seizures; Additional info: BRADLEY TECHNIQUE: Imaging protocol: Computed tomography of the head without contrast. Radiation optimization: All CT scans at this facility use at least one of these dose optimization techniques: automated exposure control; mA and/or kV adjustment per patient size (includes targeted exams where dose is matched to clinical indication); or iterative reconstruction. COMPARISON: CT head wo con* [id number] 04/08/2020 1:39 PM RADIATION DOSE METRICS: Total DLP (mGy-cm): 1410.63 FINDINGS: Brain: Normal. No hemorrhage. Unremarkable white matter. No mass effect. Cerebral ventricles: No ventriculomegaly. Bones/joints: Unremarkable. No acute fracture. Paranasal sinuses: Visualized sinuses are unremarkable. No fluid levels. Mastoid air cells: Visualized mastoid air cells are well aerated. Soft tissues: Unremarkable. CT/CT head wo con* [id number] IMPRESSION: No acute intracranial abnormality. Other CT: Radiologist's impression: [address] [place] [address] CT Scan Report Signed Patient: Mary Nesbitt Unit #: [id number] : 1990 Age/Sex: 29 / F ADM Date: 04/21/20 Loc: ER Room/Bed: Attending Dr: Ordering Provider/Ordering MD: Ramirez Elizabeth MD Date of Service: 04/21/20 Procedure(s): CT angio headneck* [id number] Accession Number(s): [id number] Report Number: [id number] PROCEDURE INFORMATION: Exam: CT Angiography Head With Contrast, Arteries Exam date and time: 04/21/2020 7:41 PM Age: 29 years old Clinical indication: Pain; Headache; Additional info: BRADLEY TECHNIQUE: Imaging protocol: Computed tomography angiography of the head with intravenous contrast. 3D rendering (Not supervised by radiologist): MIP and/or 3D reconstructed images were created by the technologist. Radiation optimization: All CT scans at this facility use at least one of these dose optimization techniques: automated exposure control; mA and/or kV adjustment per patient size (includes targeted exams where dose is matched to clinical indication); or iterative reconstruction. Contrast material: OMNI 350; Contrast volume: 350 ml; Contrast route: INTRAVENOUS (IV); COMPARISON: No relevant prior studies available. RADIATION DOSE METRICS: Total DLP (mGy-cm): 1600.79 FINDINGS: ANTERIOR CIRCULATION: Right internal carotid artery: Unremarkable. Intracranial segment is patent with no significant stenosis. No aneurysm. Right middle cerebral artery: Unremarkable. No occlusion or significant stenosis. No aneurysm. Right anterior cerebral artery: Unremarkable. No occlusion or significant stenosis. No aneurysm. Anterior communicating artery: Small patent anterior communicating artery. Left internal carotid artery: Unremarkable. Intracranial segment is patent with no significant stenosis. No aneurysm. Left middle cerebral artery: Unremarkable. No occlusion or significant stenosis. No aneurysm. Left anterior cerebral artery: Unremarkable. No occlusion or significant stenosis. No aneurysm. POSTERIOR CIRCULATION: Right vertebral artery: Dominant left vertebral artery with patent right vertebral artery. Left vertebral artery: Unremarkable. No occlusion or significant stenosis. No aneurysm. Basilar artery: Unremarkable. No occlusion or significant stenosis. No aneurysm. Right posterior cerebral artery: Direct origin of the right posterior cerebral artery from the anterior circulation. Left posterior cerebral artery: Unremarkable. No occlusion or significant stenosis. No aneurysm. Veins: Venous contamination at the level of the [place]. Brain: No definite mass, mass effect, or midline shift. Cerebral ventricles: No ventriculomegaly. Bones/joints: Unremarkable. No acute fracture. Soft tissues: Unremarkable. IMPRESSION: No large vessel occlusion. PROCEDURE INFORMATION: Exam: CT Angiography Neck With Contrast Exam date and time: 04/21/2020 7:41 PM Age: 29 years old Clinical indication: Pain; Headache; Additional info: BRADLEY TECHNIQUE: Imaging protocol: Computed tomography angiography of the neck with intravenous contrast. 3D rendering (Not supervised by radiologist): MIP and/or 3D reconstructed images were created by the technologist. Radiation optimization: All CT scans at this facility use at least one of these dose optimization techniques: automated exposure control; mA and/or kV adjustment per patient size (includes targeted exams where dose is matched to clinical indication); or iterative reconstruction. Contrast material: OMNI 350; Contrast volume: 350 ml; Contrast route: INTRAVENOUS (IV); COMPARISON: No relevant prior studies available. RADIATION DOSE METRICS: Total DLP (mGy-cm): 1600.79 FINDINGS: Right common carotid artery: No stenosis. No dissection or occlusion. Right internal carotid artery: No ICA stenosis by NASCET/SRU criteria. Right external carotid artery: No occlusion or stenosis of the origin. Right vertebral artery: Prominent anterior C6-C7 vertebral body osteophytes. Dominant left vertebral artery with patent right vertebral artery. Left common carotid artery: No stenosis. No dissection or occlusion. Left internal carotid artery: No stenosis of the extracranial segment. No dissection or occlusion. Left external carotid artery: No occlusion or stenosis of the origin. Left vertebral artery: No stenosis. No dissection or occlusion. Bones/joints: No acute fracture. Soft tissues: Normal. No significant soft tissue swelling. CT/CT angio headneck* [id number] IMPRESSION: 1. Dominant left vertebral artery with patent right vertebral artery. 2. No ICA stenosis by NASCET/SRU criteria. Discharge Plan Discharge Patient Disposition: Home Clinical Impression: Generalized seizure, Neck pain Condition: Stable Prescriptions: New Robaxin-750 750 mg tablet 750 mg PO Q6H Qty: 30 RF: 0 Naprosyn 500 mg tablet 500 mg PO BID PRN (Reason: pain) Qty: 20 RF: 0 Keppra 500 mg tablet 500 mg PO BID Qty: 60 RF: 0 No Action ondansetron HCl [Zofran] 4 mg tablet 4 mg PO Q8H PRN (Reason: nausea/vomiting) RF: 0 cetirizine [Zyrtec] 10 mg tablet 10 mg PO DAILY PRN (Reason: Allergy Symptoms) RF: 0 trazodone 50 mg tablet 50 mg PO BEDTIME PRN (Reason: Sleep) RF: 0 gabapentin 300 mg capsule 600 mg PO TID@06,12,18 RF: 0 tramadol 50 mg Tablet 50 - 100 mg PO QID PRN (Reason: Pain) RF: 0 Discharge Orders: Discharge ED (Routine); Ordered 04/21/20 Ordered By: Ramirez Elizabeth Referrals: Harmony Ford MD [Physician] - 1-3 days Joaquin Mak MD [Primary Care Provider] - Discharge Diet: Advance as tolerated Discharge Activity: Resume usual activity Patient Instructions: New-Onset Seizure in Adults (ED) Coding Level of Care Code ED Dry Charge Process Attendant for Chg Fwd Exam Comprehensive
[2020-04-21 18:41] VITALS: RESP 22; O2SAT 99
[2020-04-21] MEDS: morphine 4 mg/mL SDV 1 mL IVP (18:41)
[2020-04-21] MEDS: ondansetron 2 mg/ML SDV 2 mL 4 MG IVP (18:42)
--- NOTE | 2020-04-21 19:33 | CTR_ITS ---
PROCEDURE INFORMATION: Exam: CT Angiography Head With Contrast, Arteries Exam date and time: 04/21/2020 7:41 PM Age: 29 years old Clinical indication: Pain; Headache; Additional info: BRADLEY TECHNIQUE: Imaging protocol: Computed tomography angiography of the head with intravenous contrast. 3D rendering (Not supervised by radiologist): MIP and/or 3D reconstructed images were created by the technologist. Radiation optimization: All CT scans at this facility use at least one of these dose optimization techniques: automated exposure control; mA and/or kV adjustment per patient size (includes targeted exams where dose is matched to clinical indication); or iterative reconstruction. Contrast material: OMNI 350; Contrast volume: 350 ml; Contrast route: INTRAVENOUS (IV); COMPARISON: No relevant prior studies available. RADIATION DOSE METRICS: Total DLP (mGy-cm): 1600.79 FINDINGS: ANTERIOR CIRCULATION: Right internal carotid artery: Unremarkable. Intracranial segment is patent with no significant stenosis. No aneurysm. Right middle cerebral artery: Unremarkable. No occlusion or significant stenosis. No aneurysm. Right anterior cerebral artery: Unremarkable. No occlusion or significant stenosis. No aneurysm. Anterior communicating artery: Small patent anterior communicating artery. Left internal carotid artery: Unremarkable. Intracranial segment is patent with no significant stenosis. No aneurysm. Left middle cerebral artery: Unremarkable. No occlusion or significant stenosis. No aneurysm. Left anterior cerebral artery: Unremarkable. No occlusion or significant stenosis. No aneurysm. POSTERIOR CIRCULATION: Right vertebral artery: Dominant left vertebral artery with patent right vertebral artery. Left vertebral artery: Unremarkable. No occlusion or significant stenosis. No aneurysm. Basilar artery: Unremarkable. No occlusion or significant stenosis. No aneurysm. Right posterior cerebral artery: Direct origin of the right posterior cerebral artery from the anterior circulation. Left posterior cerebral artery: Unremarkable. No occlusion or significant stenosis. No aneurysm. Veins: Venous contamination at the level of the [place]. Brain: No definite mass, mass effect, or midline shift. Cerebral ventricles: No ventriculomegaly. Bones/joints: Unremarkable. No acute fracture. Soft tissues: Unremarkable. IMPRESSION: No large vessel occlusion. PROCEDURE INFORMATION: Exam: CT Angiography Neck With Contrast Exam date and time: 04/21/2020 7:41 PM Age: 29 years old Clinical indication: Pain; Headache; Additional info: BRADLEY TECHNIQUE: Imaging protocol: Computed tomography angiography of the neck with intravenous contrast. 3D rendering (Not supervised by radiologist): MIP and/or 3D reconstructed images were created by the technologist. Radiation optimization: All CT scans at this facility use at least one of these dose optimization techniques: automated exposure control; mA and/or kV adjustment per patient size (includes targeted exams where dose is matched to clinical indication); or iterative reconstruction. Contrast material: OMNI 350; Contrast volume: 350 ml; Contrast route: INTRAVENOUS (IV); COMPARISON: No relevant prior studies available. RADIATION DOSE METRICS: Total DLP (mGy-cm): 1600.79 FINDINGS: Right common carotid artery: No stenosis. No dissection or occlusion. Right internal carotid artery: No ICA stenosis by NASCET/SRU criteria. Right external carotid artery: No occlusion or stenosis of the origin. Right vertebral artery: Prominent anterior C6-C7 vertebral body osteophytes. Dominant left vertebral artery with patent right vertebral artery. Left common carotid artery: No stenosis. No dissection or occlusion. Left internal carotid artery: No stenosis of the extracranial segment. No dissection or occlusion. Left external carotid artery: No occlusion or stenosis of the origin. Left vertebral artery: No stenosis. No dissection or occlusion. Bones/joints: No acute fracture. Soft tissues: Normal. No significant soft tissue swelling. CT/CT angio headneck* [id number] IMPRESSION: 1. Dominant left vertebral artery with patent right vertebral artery. 2. No ICA stenosis by NASCET/SRU criteria. REFERENCES: NASCET CRITERIA. The degree of internal carotid artery stenosis is based on NASCET criteria. Normal is no stenosis. Mild is less than 50% stenosis. Moderate is 50-69% stenosis. Severe is 70% to 99% stenosis. Total occlusion is no detectable patent lumen. Radiation Dose CTDIVOL = (mGy): DLP = 1600.79~1600.79 (mGy-cm)
--- NOTE | 2020-04-21 19:33 | CTR_ITS ---
PROCEDURE INFORMATION: Exam: CT Head Without Contrast Exam date and time: 04/21/2020 7:41 PM Age: 29 years old Clinical indication: Pain; Patient HX: Headache, seizures; Additional info: BRADLEY TECHNIQUE: Imaging protocol: Computed tomography of the head without contrast. Radiation optimization: All CT scans at this facility use at least one of these dose optimization techniques: automated exposure control; mA and/or kV adjustment per patient size (includes targeted exams where dose is matched to clinical indication); or iterative reconstruction. COMPARISON: CT head wo con* [id number] 04/08/2020 1:39 PM RADIATION DOSE METRICS: Total DLP (mGy-cm): 1410.63 FINDINGS: Brain: Normal. No hemorrhage. Unremarkable white matter. No mass effect. Cerebral ventricles: No ventriculomegaly. Bones/joints: Unremarkable. No acute fracture. Paranasal sinuses: Visualized sinuses are unremarkable. No fluid levels. Mastoid air cells: Visualized mastoid air cells are well aerated. Soft tissues: Unremarkable. CT/CT head wo con* [id number] IMPRESSION: No acute intracranial abnormality. Radiation Dose CTDIVOL = (mGy): DLP = 1410.63 (mGy-cm)
[2020-04-21] MEDS: LORazepam 2 mg/mL INJ 1 mL 1 MG IVP (19:38)
[2020-04-21] MEDS: diphenhydrAMINE 50 mg/mL SDV 1mL IVP (19:40)
[2020-04-21] MEDS: metoclopramide 5 mg/mL SDV 2 mL 10 MG IVP (19:42)
[2020-04-21 19:44] VITALS: BP 132/92; PULSE 106; RESP 25; O2SAT 98
[2020-04-21 19:58] LABS: Basophils % 0.5 %; Eosinophils % 0.3 %; Hematocrit 41.4 % (37.0-47.0); Hemoglobin 13.1 g/dL (11.5-15.3); Lymphocytes % 32.8 %; Mean Corpuscular HGB Conc 31.6 g/dL (30.0-36.0); Mean Corpuscular Hemoglobin 29.6 pg (28.0-34.0); Mean Corpuscular Volume 93.5 fL (81-99); Mean Platelet Volume 10.7 fL (7.4-10.4); Monocytes # 0.4 10^3/uL (0.2-0.9); Monocytes % 5.9 %; Neutrophils # 3.61 10^3/uL (1.8-7.7); Neutrophils % 60.3 %; Nucleated Red Blood Cells % 0 %; Platelet Count 436 10^3/cmm (130-400); Red Blood Count 4.43 10^6/uL (4.1-5.3); Red Cell Distribution Width 14.3 % (12.1-15.1)
[2020-04-21] MEDS: iohexol 350 mg/mL 100 mL Btl IV (19:59)
[2020-04-21 20:09] LABS: Blood Urea Nitrogen 6 mg/dL (6-20); Calcium 9.9 mg/dL (8.5-10.5); Carbon Dioxide 25 mmol/L (22-29); Chloride 103 mmol/L (98-107); Glomerular Filtration Rate 98.3 mL/min (90-130); Glucose 82 mg/dL (65-115); Osmolality Calculated 283 mOsm/kg (285-295); Sodium 138 mmol/L (136-145)
[2020-04-21 20:26] LABS: HCG Qualitative Urine. Negative (Negative)
[2020-04-21 20:33] LABS: Amphetamines Screen Urine Negative (Negative); Barbiturates Screen Urine Negative (Negative); Benzodiazepines Screen Urine Negative (Negative); Cocaine Screen Urine Negative (Negative); Opiate Screen Urine Positive (Negative); PCP Screen Urine Negative (Negative); THC Screen Urine Negative (Negative)
[2020-04-21 21:16] VITALS: BP 109/81; PULSE 81; RESP 16; O2SAT 97
--- NOTE | 2020-04-22 09:25 | DCPLANNER ---
online communications manager had message to schedule a follow up appointment for patient with Dr. Ford for seizures. online communications manager called Flower Borjas, internet marketing coordinator. online communications manager was unable to speak with patient at this time, a voicemail was left for her with patients information and the reason for the referral.
--- NOTE | 2020-05-07 11:36 | DCPLANNER ---
administrative manager called the office of Dr. Ford to confirm if a follow up appointment had been scheduled for patient. administrative manager spoke with Mariajose, a follow up appointment was scheduled for patient for Sunday, May 13, 2020 at 8:00 with Joaquin. Clinic stated that the clinic would call patient with appointment information.
--- NOTE | 2020-05-13 15:50 | DCPLANNER ---
Patient had a follow up appointment scheduled for 05.12.[address] Ford - patient did attend appointment.
== END 2020-04-21 21:16 | disposition home or self-care (01) ==
PROVIDERS: Emergency Provider Emergency Medicine; PCP Family Medicine
DX: G40.89 Other seizures (principal); M54.2 Cervicalgia; Z87.891 Personal history of nicotine dependence
CPT/HCPCS: 70450; 70496; 70498; 80048; 80306; 81025; 85025; 96374; 96375; 99284; J1200; J1953; J2060; J2270; J2405; J2765; Q9967

== ENCOUNTER 2020-05-07 18:35 | Emergency (ER) | payer MEDICAID, SELFPAY ==
[2020-05-07 18:40] VITALS: BP 144/109; PULSE 94; RESP 15; TEMP 36.6; O2SAT 100; BMI 23.6
--- NOTE | 2020-05-07 18:41 | ED_ITS ---
HPI - Seizure General: Chief Complaint: Seizure Stated Complaint: SEIZURE Time Seen by Provider: 05/07/20 18:37 Source: patient Mode of arrival: ambulatory Limitations: no limitations History of Present Illness: HPI Narrative: 29-year-old female has a history of seizures had a witnessed seizure at home. She is on Keppra and states she been taking her Keppra. EMS states that she is awake and alert when they arrived. She denies any head denies any head pain. She here is awake but states she feels very tired. She denies any headache. Denies any worsening proving factors. Seizure History: No Associated symptoms: Deny chest pain, chills or fever(s) Review of Systems Const: Denies: fever(s), chills, body aches or change in appetite Eyes: Denies: blurry vision or eye discomfort ENMT: Denies: throat pain or dental pain Card: Denies: chest pain Resp: Denies: dyspnea GI: Denies: abdominal pain, nausea, vomiting or diarrhea : Denies: dysuria Musc: Denies: neck pain or back pain Skin/Breast: Denies: rash Neuro: Reports: seizure-like activity Psych: Denies: depression Damien/Lymph: Denies: easy bruising All/Imm: Denies: urticaria PFSH ED PFSH: Medical History Abnormal uterine bleeding (AUB) Anxiety Bipolar disorder, unspecified Other assisted (current) drug therapy Pelvic pain in female Surgical History H/O removal of cyst [address] Mosher History of laparoscopy 2010-for endometriosis 2015- for Mirena removal 01/17/2017-performed by Dr. Mosher at [facility] History of tubal ligation 12/2015- per Dr. Mosher at [facility] Family History Mother Stroke Hyperlipidemia Family history of thyroid problem Hypertension Father Degenerative disc disease Diabetes Unknown Breast cancer maternal great aunt Grandmother Ovarian cancer maternal Uterine cancer maternal Social History Smoking and tobacco status: former smoker Quit status (tobacco): has quit using tobacco Year quit tobacco: 05/02/2019 Alcohol intake: never Current gender identity: Female Additional social history: well balanced diet Physical Exam Const: COMMON NORMALS: no acute distress, patient oriented x3 and healthy appearing HENMT: COMMON NORMALS: normocephalic and atraumatic HEAD & SCALP: normocephalic and atraumatic Eye: COMMON NORMALS: Equal, round and reactive pupils present and EOMs intact bilaterally PUPIL: Yes Equal, round and reactive pupils present Neck/C-Spine: COMMON NORMALS: full ROM and supple Chest: COMMONS NORMALS: normal inspection of the chest and normal palpation of entire chest wall Resp: COMMON NORMALS: normal respiratory effort, No retractions, No use of accessory muscles and clear to auscultation bilaterally AUSCULTATION: clear to auscultation bilaterally Cardio: COMMON NORMALS: regular rate, regular rhythm and No murmurs present (Cardio) RATE: regular rate RHYTHM: regular rhythm GI: COMMON NORMALS: Normal to inspection, nondistended, normoactive bowel sounds present, Soft to palpation, non-tender and no masses PALPATION: Yes Soft to palpation Extremity: COMMON NORMALS: normal to inspection and full ROM Neuro: COMMON NORMALS: patient oriented x3, moves all extremities and no focal motor deficits Psych: COMMON NORMALS: mental status grossly normal, Normal thought process present and cooperative THOUGHT PROCESS: Normal thought process present Skin: COMMON NORMALS: no rashes or lesions noted and no wounds GENERAL SKIN EXAM: no rashes or lesions noted Course Vital Signs: Vital signs: Vital Signs Temperature 98 F 05/07/20 18:40 Pulse Rate 94 05/07/20 19:37 Respiratory Rate 21 H 05/07/20 19:37 Blood Pressure 133/98 05/07/20 19:37 Pulse Oximetry 98 05/07/20 19:37 MDM - Seizure MDM Narrative: Medical decision making narrative: Patient presents with a seizure. She has been well-appearing here. She does have some neck pain is likely a muscle strain. She is stable for discharge and is to follow-up with PCP and return if worsening. Discharge Plan Discharge Patient Disposition: Home Clinical Impression: Generalized seizure Condition: Stable Prescriptions: No Action ondansetron HCl [Zofran] 4 mg tablet 4 mg PO TID PRN (Reason: nausea/vomiting) RF: 0 cetirizine [Zyrtec] 10 mg tablet 10 mg PO DAILY PRN (Reason: Allergy Symptoms) RF: 0 trazodone 50 mg tablet 50 mg PO BEDTIME PRN (Reason: Sleep) RF: 0 gabapentin 300 mg capsule See Rx Instructions .ROUTE .COMPLEX RF: 0 tramadol 50 mg Tablet 50 - 100 mg PO QID PRN (Reason: Pain) RF: 0 methocarbamol [Robaxin-750] 750 mg tablet 750 mg PO Q6H Qty: 30 RF: 0 naproxen [Naprosyn] 500 mg tablet 500 mg PO BID PRN (Reason: pain) Qty: 20 RF: 0 levetiracetam [Keppra] 500 mg tablet 500 mg PO BID Qty: 60 RF: 0 Discharge Orders: Discharge ED (Routine); Ordered 05/07/20 Ordered By: Ramirez Elizabeth Referrals: Joaquin Mak MD [Primary Care Provider] - 1-3 days Discharge Diet: Advance as tolerated Discharge Activity: Resume usual activity Patient Instructions: Recurrent Seizures Adult (ED) Coding Level of Care Code ED Mincing Machine Operator for Chg Fwd Exam Comprehensive
[2020-05-07] MEDS: LORazepam 2 mg/mL INJ 1 mL 1 MG IVP (19:03)
[2020-05-07 19:05] VITALS: BP 141/100; PULSE 94; RESP 18; O2SAT 100
[2020-05-07 19:15] VITALS: RESP 18
[2020-05-07] MEDS: morphine 4 mg/mL SDV 1 mL IVP (19:15)
[2020-05-07 19:37] VITALS: BP 133/98; PULSE 94; RESP 21; O2SAT 98
--- NOTE | 2020-05-08 00:18 | PC.NURSE ---
Ativan 1 mg was wasted with WINDY Cervantes. Was not wasted in [facility].
--- NOTE | 2020-05-08 00:19 | PC.NURSE ---
This nurse witnessed the waste of 1mg of Ativan that was administered by Aureliano TEMPLE
== END 2020-05-07 19:37 | disposition home or self-care (01) ==
PROVIDERS: Emergency Provider Emergency Medicine; PCP Family Medicine
DX: G40.409 Other generalized epilepsy and epileptic syndromes, not intractable, without status epilepticus (principal); Z87.891 Personal history of nicotine dependence
CPT/HCPCS: 96374; 96375; 99283; J2060; J2270

== ENCOUNTER 2020-05-09 10:22 | Emergency (ER) | payer MEDICAID, SELFPAY ==
[2020-05-09 10:26] VITALS: BP 147/101; PULSE 101; RESP 16; TEMP 36.7; O2SAT 96; BMI 21.6
[2020-05-09 10:36] VITALS: BP 147/101; PULSE 109; O2SAT 96
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
[2020-05-09] MEDS: ondansetron 2 mg/ML SDV 2 mL 4 MG IM (11:07)
[2020-05-09 11:32] VITALS: BP 131/93; PULSE 96; O2SAT 93
== END 2020-05-09 11:33 | disposition home or self-care (01) ==
PROVIDERS: Emergency Provider Physician Assistant; PCP Family Medicine
DX: S60.211A Contusion of right wrist, initial encounter (principal); Z87.891 Personal history of nicotine dependence; W23.0XXA Caught, crushed, jammed, or pinched between moving objects, initial encounter
CPT/HCPCS: 29125; 73110; 96372; 99283; J2405

== ENCOUNTER → 2020-05-12 08:04 | Outpatient (BNVA) | payer MEDICAID, SELFPAY | PROVIDERS: PCP Family Medicine; Visit Provider Nurse Practitioner | DX: G40.909 Epilepsy, unspecified, not intractable, without status epilepticus (principal); Z87.891 Personal history of nicotine dependence | CPT/HCPCS: 99204 ==

== ENCOUNTER → 2020-07-08 09:21 | Outpatient (BNVA) | payer MEDICAID, SELFPAY | PROVIDERS: PCP Family Medicine; Visit Provider Psychiatry & Neurology Psychiatry | DX: F31.0 Bipolar disorder, current episode hypomanic (principal) | CPT/HCPCS: 99214 ==

== ENCOUNTER → 2020-11-05 12:55 | Outpatient (BNVA) | payer OTHER, MEDICAID, SELFPAY | PROVIDERS: PCP Family Medicine; Visit Provider Surgery | DX: Z01.812 Encounter for preprocedural laboratory examination (principal); Z20.822 Contact with and (suspected) exposure to COVID-19 | CPT/HCPCS: 87635 ==

== ENCOUNTER 2020-11-11 06:52 | Day surgery (SDC) | payer OTHER, MEDICAID, SELFPAY ==
[2020-11-10 14:30] VITALS: BMI 21.2
[2020-11-11] VITALS (12 sets, daily range): BP systolic 111–136; BP diastolic 75–94; PULSE 78–99; RESP 16–20; TEMP 36.3–36.8; O2SAT 100
--- NOTE | 2020-11-11 07:49 | P.ANESASSM_ITS ---
Pre-Anesthetic Assessment Pre-Anesthetic Assessment: Height/Weight: Height 1.5 m Weight 47.627 kg Temp Pulse Resp BP Pulse Ox 97.7 F 92 18 111/75 100 11/11/20 07:17 11/11/20 07:17 11/11/20 07:17 11/11/20 07:17 11/11/20 07:17 Preop Diagnosis: Status post total vaginal hysterectomy, Endometriosis, chronic pelvic pain Proposed Procedure: Operation Date: 11/11/20 08:30 Proposed Procedures p Laparoscopic Cholecystectomy 28204 K80.20 R10.11 R10.12 R10.13 R14.0(Not A pplicable) - Alvin Manrique MD Was Beta Omar taken within 24 hours: N/A Last intake: Intake Last Liquid Date 11/10/20 Last Liquid Time 21:00 Last Solid Date 11/10/20 Last Solid Time 21:00 Social: Social History: No alcohol and No tobacco Exam: Pre-Anes Outpt Exam: alert, oriented x 3, clear to auscultation bilaterally and regular rate & rhythm Airway: Submandibular: WNL Cervical ROM: WNL MP: 2 Dentition: Chipped Additional comments: Poor dentition, missing several Musc/skel: Musc/skel: Lower Back Pain Neuropsych: Neuropsych: Anxiety, Bipolar, Depression and Seizure Anesthetic Plan: ASA status: 2 Anesthesia: General Risk of > 500 ml blood loss (7ml/kg in children): No PFSH Anesthesia PFSH: Medical History Abnormal uterine bleeding (AUB) Anxiety Bipolar disorder, unspecified Other assisted (current) drug therapy Pelvic pain in female Surgical History H/O removal of cyst [address] Mosher History of laparoscopy 2010-for endometriosis 2015- for Mirena removal 01/17/2017-performed by Dr. Mosher at [facility] History of tubal ligation 12/2015- per Dr. Mosher at [facility] Family History Mother Stroke Hyperlipidemia Family history of thyroid problem Hypertension Father Degenerative disc disease Diabetes Unknown Breast cancer maternal great aunt Grandmother Ovarian cancer maternal Uterine cancer maternal Social History Smoking and tobacco status: former smoker Quit status (tobacco): has quit using tobacco Year quit tobacco: 05/02/2019 Alcohol intake: never Current gender identity: Female Additional social history: well balanced diet Data Anesthesia Cardiac Studies: No Data to Display
[2020-11-11] MEDS: sodium chloride 0.9% 1,000 ML 30 ML IV (07:53)
[2020-11-11] MEDS: scopolamine 1.5 Patch 1 PATCH TRANSDERMA (07:56)
[2020-11-11] MEDS: ondansetron 2 mg/ML SDV 2 mL 4 MG IVP (07:58)
[2020-11-11 08:06] LABS: Alanine Aminotransferase 30 U/L (0-33); Albumin Level 4.2 g/dL (3.5-5.2); Alkaline Phosphatase 119 IU/L (35-105); Aspartate Amino Transferase 25 U/L (0-32); Globulin 2.3 g/dL (1.3-4.6); Total Bilirubin 0.4 mg/dL (0.15-1.2); Total Protein 6.5 g/dL (6.6-8.7)
[2020-11-11] MEDS: diphenhydrAMINE 50 mg/mL SDV 1mL 12.5 MG IVP (08:47)
--- NOTE | 2020-11-11 08:58 | W.PM.OPSUD ---
Surgery/Procedure H&P Update DATE OF PROCEDURE: November 11, 2020 DATE H&P PERFORMED: 10/26/20 H&P UPDATE INFORMATION: No changes to prior documentation PREOP DIAGNOSIS: Gallstones, upper abdominal discomfort. PLANNED PROCEDURE: Operation Date: 11/11/20 08:30 Proposed Procedures p Laparoscopic Cholecystectomy 42190 K80.20 R10.11 R10.12 R10.13 R14.0(Not Applicable) - Alvin Manrique MD
--- NOTE | 2020-11-11 09:58 | PM.OP ---
Operative Report Date of procedure: November 11, 2020 Pre-op Diagnosis: Gallstones, upper abdominal discomfort. Post-op diagnosis: same Procedure Done: Laparoscopic cholecystectomy. Specimens removed/disposition: Gallbladder. Surgeon: Alvin Manrique Anesthesia: General Estimated blood loss (mL): 5 Complications: None. Condition: stable Disposition: PACU Procedure: The patient was brought to the Operating Room and was placed in a supine position on the Operating Room table. General endotracheal anesthesia was induced. The abdomen was prepped and draped in a sterile fashion. A small vertical incision was carried out in the inferior aspect of the umbilicus. Blunt dissection was carried out down to the fascia, which was grasped with a Emile clamp. A stay suture of 0 Vicryl was placed on either side of the midline and the midline fascia was incised. The underlying peritoneum was opened bluntly and the Gabo port was placed directly into the peritoneal cavity and was held in place with the inflatable balloon. The peritoneal cavity was insufflated with carbon dioxide. The laparoscope was used to inspect the abdominal cavity. The patient's stomach had been considerably insufflated with air from the intubation/bagging process. Anesthesia passed an orogastric tube temporarily to decompress it. No other gross abnormalities were noted. A 5 millimeter port was placed in the epigastrium under direct vision. Two 5-millimeter ports were placed on the right side of the abdomen under direct vision. The gallbladder was grasped and was elevated. Blunt dissection and hydrodissection were carried out in the infundibular region of the gallbladder and the cystic duct and cystic artery were identified. The gallbladder was partially removed from the liver bed using cautery and the spatula to confirm the anatomy before the structures were clipped and divided. The gallbladder was then removed from the liver bed using cautery and the spatula. After the gallbladder had been removed from the liver bed, the laparoscope was moved to the epigastric port and the gallbladder was removed from the peritoneal cavity through the umbilical port site. The stay sutures of Vicryl were tied to each other at the umbilicus[], closing the defect so that it was airtight. The perihepatic spaces were irrigated with saline and the liver bed was reinspected. No ongoing problems were seen. The remaining ports were removed from the abdominal wall and the pneumoperitoneum was evacuated. All skin incisions were closed using inverted interrupted sutures of 4-0 Vicryl. Benzoin and Steri-Strips were placed over the incisions and Band-Aids followed. The patient was taken to the Recovery Area in stable condition postoperatively.
[2020-11-11] MEDS: fentaNYL 50 mcg/mL INJ 2mL IVP ×2 (10:16→10:23)
[2020-11-11] MEDS: HYDROcodone-acetaminophen 5-325 mg Tablet 1 TAB PO (11:04)
== END 2020-11-11 11:15 | disposition home or self-care (01) ==
PROVIDERS: PCP Family Medicine; Visit Provider Surgery
PROC: 0FT44ZZ Resection of Gallbladder, Percutaneous Endoscopic Approach (ICD-10-PCS; CPT 47562; principal; 2020-11-11 08:30)
DX: K80.10 Calculus of gallbladder with chronic cholecystitis without obstruction (principal); Z82.49 Family history of ischemic heart disease and other diseases of the circulatory system; Z83.3 Family history of diabetes mellitus; Z87.891 Personal history of nicotine dependence
CPT/HCPCS: 47562; 36415; 80076; 88304; 96374; J0690; J1100; J1200; J2405; J2704; J2710; J3010; J3490; J7030

== ENCOUNTER → 2020-12-09 08:03 | Outpatient (BNVA) | payer OTHER, MEDICAID, SELFPAY | PROVIDERS: PCP Family Medicine; Visit Provider Psychiatry & Neurology Psychiatry | DX: F31.0 Bipolar disorder, current episode hypomanic (principal); F41.9 Anxiety disorder, unspecified | CPT/HCPCS: 99214 ==

== ENCOUNTER → 2021-03-03 09:03 | Outpatient (BNVA) | payer OTHER, SELFPAY | PROVIDERS: PCP Family Medicine; Visit Provider Psychiatry & Neurology Psychiatry | DX: F41.9 Anxiety disorder, unspecified (principal); F31.0 Bipolar disorder, current episode hypomanic | CPT/HCPCS: 99214 ==

== ENCOUNTER 2021-03-16 20:22 | Emergency (ER) | payer MEDICAID, SELFPAY ==
[2021-03-16 20:29] VITALS: BP 116/79; PULSE 98; RESP 18; TEMP 36.7; O2SAT 98; BMI 23.2
--- NOTE | 2021-03-16 20:38 | W.ED.SEIZURE ---
HPI - Seizure General: Chief Complaint: Seizure Stated Complaint: seizure, neck and back pain Time Seen by Provider: 03/16/21 20:38 History of Present Illness: HPI Narrative: 30-year-old female comes in today with complaints of seizure disorder. Patient reported to have a 15-second seizure that occurred about an hour and a half before arrival. Patient comes in now for complaints of neck discomfort. Patient states that she usually gets musculoskeletal neck pain after her seizures. Her last seizure was over 6 months ago. Patient appears well. Patient appears in mild to moderate pain. MD complaint: possible seizure Onset (ago): hour(s) (1.5) Description of Episode: tonic-clonic movement Duration of episode: 15 Witnessed: Yes - by Bystander Trauma: No Seizure History: Yes Place: Home Possible Precipitating Event: other (Neck pain) Review of Systems Musc: Reports: neck pain Neuro: Reports: seizure-like activity [facility] ED PFSH: Medical History (Updated 03/16/21 @ 22:03 by GLENN Khan) Abnormal uterine bleeding (AUB) Anxiety Bipolar disorder, unspecified Other skilled nursing (current) drug therapy Pelvic pain in female Psychiatric care Surgical History H/O removal of cyst [address] Mosher History of laparoscopy 2010-for endometriosis 2015- for Mirena removal 01/17/2017-performed by Dr. Mosher at [facility] History of tubal ligation 12/2015- per Dr. Mosher at [facility] Family History Mother Stroke Hyperlipidemia Family history of thyroid problem Hypertension Father Degenerative disc disease Diabetes Unknown Breast cancer maternal great aunt Grandmother Ovarian cancer maternal Uterine cancer maternal Social History Smoking and tobacco status: former smoker Quit status (tobacco): has quit using tobacco Year quit tobacco: 05/02/2019 Alcohol intake: never Current gender identity: Female Additional social history: well balanced diet Physical Exam Const: COMMON NORMALS: patient oriented x3 and alert HENMT: COMMON NORMALS: atraumatic HEAD & SCALP: atraumatic Neck/C-Spine: CERVICAL SPINE: Yes Paracervical muscle tenderness and Yes Paracervical spasm bilateral Resp: COMMON NORMALS: normal respiratory effort Cardio: COMMON NORMALS: regular rate and regular rhythm RATE: regular rate RHYTHM: regular rhythm Extremity: COMMON NORMALS: normal to inspection Neuro: COMMON NORMALS: patient oriented x3 SENSORIUM/ORIENTATION: Yes alert Psych: COMMON NORMALS: cooperative Skin: COMMON NORMALS: no rashes or lesions noted GENERAL SKIN EXAM: no rashes or lesions noted Course Vital Signs: Vital signs: Vital Signs Temperature 98.1 F 03/16/21 20:29 Pulse Rate 98 03/16/21 21:06 Respiratory Rate 18 03/16/21 21:06 Blood Pressure 107/76 03/16/21 21:06 Pulse Oximetry 98 03/16/21 21:06 MDM - Seizure MDM Narrative Medical decision making narrative: Patient comes in today for complaints of neck discomfort after a 15-second seizure. Patient reports she was starting to have a tenderness and spasming in her neck when she had a short seizure. Patient reports her daughters were present and noted that it was about 15 seconds. No incontinence was noted at the time. Patient appears well. Spouse brought patient in about 1 and half hours after seizure. On exam respirations were even lungs were clear to auscultation. No focal neural deficits were noted. No midline cervical or thoracic tenderness was noted on palpation. Pain was mostly noted in bilateral trapezius with worse pain on the left and spasms in both trapezius. Differential diagnosis includes but not limited to cervical radiculopathy, muscle strain, seizure disorder. Laboratory values were unremarkable. Patient was given 2 mg Ativan and 30 mg of Toradol with minimal relief of pain. Patient was then given 4 mg of morphine for further pain relief. Patient was released with hydrocodone 1 tablet for home use and a prescription for tizanidine and hydrocodone for muscle spasms and pain. Patient was encouraged to drink plenty of water and do gentle stretching and range of motion exercises. Lab Data Result diagrams: 03/16/21 20:50 03/16/21 20:50 Labs: Laboratory Results WBC 5.6 10^3/uL (4.0-10.0) 03/16/21 20:50 RBC 4.21 10^6/uL (4.1-5.3) 03/16/21 20:50 Hgb 13.3 g/dL (11.5-15.3) 03/16/21 20:50 Hct 40.0 % (37.0-47.0) 03/16/21 20:50 MCV 95.0 fl (81-99) 03/16/21 20:50 MCH 31.6 pg (28.0-34.0) 03/16/21 20:50 MCHC 33.3 g/dL (30.0-36.0) 03/16/21 20:50 RDW 13.5 % (12.1-15.1) 03/16/21 20:50 Plt Count 271 10^3/cmm (130-400) 03/16/21 20:50 MPV 11.0 fL (7.4-10.4) H 03/16/21 20:50 Neut % (Auto) 42.4 % 03/16/21 20:50 Lymph % (Auto) 47.7 % 03/16/21 20:50 [place] % (Auto) 7.8 % 03/16/21 20:50 Eos % (Auto) 1.4 % 03/16/21 20:50 Baso % (Auto) 0.5 % 03/16/21 20:50 Neut # (Auto) 2.39 10^3/uL (1.8-7.7) 03/16/21 20:50 Lymph # (Auto) 2.7 10^3/uL (0.8-4.8) 03/16/21 20:50 [place] # (Auto) 0.4 10^3/uL (0.2-0.9) 03/16/21 20:50 Eos # (Auto) 0.1 10^3/uL (0.0-0.8) 03/16/21 20:50 Baso # (Auto) 0.0 10^3/uL (0.0-0.1) 03/16/21 20:50 Nucleated RBC % (auto) 0 % 03/16/21 20:50 Nucleated RBCs # 0.0 /100WBC 03/16/21 20:50 Sodium 137 mmol/L (136-145) 03/16/21 20:50 Potassium 3.7 mmol/L (3.5-5.1) 03/16/21 20:50 Chloride 106 mmol/L (98-107) 03/16/21 20:50 Carbon Dioxide 20 mmol/L (22-29) L 03/16/21 20:50 Anion Gap 14.7 (5-19) 03/16/21 20:50 BUN 14 mg/dL (6-20) 03/16/21 20:50 Creatinine 0.6 mg/dL (0.5-0.9) 03/16/21 20:50 GFR Calculation 116.6 mL/min (90-130) 03/16/21 20:50 Glucose 83 mg/dL (65-115) 03/16/21 20:50 Calculated Osmolality 284 mOsm/kg (285-295) L 03/16/21 20:50 Calcium 8.5 mg/dL (8.5-10.5) 03/16/21 20:50 Total Bilirubin 0.2 mg/dL (0.15-1.2) 03/16/21 20:50 AST 21 U/L (0-32) 03/16/21 20:50 ALT 29 U/L (0-33) 03/16/21 20:50 Alkaline Phosphatase 110 IU/L (35-105) H 03/16/21 20:50 Total Protein 6.6 g/dL (6.6-8.7) 03/16/21 20:50 Albumin 4.3 g/dL (3.5-5.2) 03/16/21 20:50 Globulin 2.3 g/dL (1.3-4.6) 03/16/21 20:50 HCG, Qual Negative (Negative) 03/16/21 20:50 Discharge Plan Discharge Patient Disposition: Home Clinical Impression: Seizure disorder Acute strain of neck muscle Qualifiers: Encounter type: initial encounter Qualified Code(s): S16.1XXA - Strain of muscle, fascia and tendon at neck level, initial encounter Condition: Stable Prescriptions: New tizanidine 4 mg tablet 4 mg PO Q8H PRN (Reason: muscle spasticity) Qty: 10 0RF hydrocodone-acetaminophen 5-325 mg tablet 1 tab PO Q8H PRN (Reason: pain) Qty: 7 0RF No Action ondansetron HCl [Zofran] 4 mg tablet 4 mg PO TID PRN (Reason: nausea/vomiting) 0RF gabapentin 300 mg capsule 600 mg PO QID 30 Days Qty: 240 3RF trazodone 150 mg tablet 150 mg PO .qhs 30 Days Qty: 30 3RF buspirone 10 mg tablet 10 mg PO BID PRN (Reason: anxiety) 30 Days Qty: 60 3RF cetirizine [Zyrtec] 10 mg tablet 10 mg PO DAILY PRN (Reason: Allergy Symptoms) 0RF tramadol 50 mg Tablet 50 - 100 mg PO QID PRN (Reason: Pain) 0RF topiramate [Topamax] 100 mg Tablet 100 mg PO TID 0RF Discharge Orders: Discharge ED (Routine); Ordered 03/16/21 Ordered By: Jeffrey Buchanan Referrals: Joaquin Mak MD [Primary Care Provider] - Discharge Diet: Usual diet Discharge Activity: Increase activity as tolerated Patient Instructions: Acute Neck Pain (ED), Opioid Safety Activity Restrictions/Additional Instructions: Take acetaminophen and ibuprofen for pain. Use tizanidine for muscle spasms. Use hydrocodone for breakthrough pain. Drink plenty of water with medication. Gentle stretching and range of motion exercises of the neck. Follow-up with primary care for further instruction. Return to ER for new concerns. Coding Level of Care Code ED Crimper Assembler for Mark Fwd History Problem Focused Exam Expanded Problem Focused Medical Decision Making Low Complexity Time Spent (min) 30
[2021-03-16] MEDS: LORazepam 2 mg/mL INJ 1 mL IM (21:01)
[2021-03-16] MEDS: ketorolac 30 mg/mL INJ IM (21:02)
[2021-03-16 21:05] LABS: Basophils % 0.5 %; Eosinophils # 0.1 10^3/uL (0.0-0.8); Eosinophils % 1.4 %; Hemoglobin 13.3 g/dL (11.5-15.3); Lymphocytes # 2.7 10^3/uL (0.8-4.8); Lymphocytes % 47.7 %; Mean Corpuscular HGB Conc 33.3 g/dL (30.0-36.0); Mean Corpuscular Hemoglobin 31.6 pg (28.0-34.0); Monocytes # 0.4 10^3/uL (0.2-0.9); Monocytes % 7.8 %; Neutrophils # 2.39 10^3/uL (1.8-7.7); Neutrophils % 42.4 %; Nucleated Red Blood Cells % 0 %; Platelet Count 271 10^3/cmm (130-400); Red Blood Count 4.21 10^6/uL (4.1-5.3); Red Cell Distribution Width 13.5 % (12.1-15.1); White Blood Count 5.6 10^3/uL (4.0-10.0)
[2021-03-16 21:06] VITALS: BP 107/76; PULSE 98; RESP 18; O2SAT 98
[2021-03-16 21:15] LABS: HCG, Serum Qual Negative (Negative)
[2021-03-16 21:27] LABS: Alanine Aminotransferase 29 U/L (0-33); Albumin Level 4.3 g/dL (3.5-5.2); Alkaline Phosphatase 110 IU/L (35-105); Anion Gap 14.7 (5-19); Aspartate Amino Transferase 21 U/L (0-32); Blood Urea Nitrogen 14 mg/dL (6-20); Calcium 8.5 mg/dL (8.5-10.5); Carbon Dioxide 20 mmol/L (22-29); Chloride 106 mmol/L (98-107); Globulin 2.3 g/dL (1.3-4.6); Glomerular Filtration Rate 116.6 mL/min (90-130); Glucose 83 mg/dL (65-115); Osmolality Calculated 284 mOsm/kg (285-295); Potassium 3.7 mmol/L (3.5-5.1); Sodium 137 mmol/L (136-145); Total Bilirubin 0.2 mg/dL (0.15-1.2); Total Protein 6.6 g/dL (6.6-8.7)
[2021-03-16] MEDS: HYDROcodone-acetaminophen 5-325 mg Tablet 1 TAB PO (21:43)
[2021-03-16] MEDS: morphine 4 mg/mL SDV 1 mL IM (22:11)
[2021-03-16 22:15] VITALS: PULSE 96; O2SAT 98
== END 2021-03-16 22:27 | disposition home or self-care (01) ==
PROVIDERS: Emergency Provider Nurse Practitioner Family; PCP Family Medicine
DX: G40.909 Epilepsy, unspecified, not intractable, without status epilepticus (principal); S16.1XXA Strain of muscle, fascia and tendon at neck level, initial encounter; Z87.891 Personal history of nicotine dependence; X58.XXXA Exposure to other specified factors, initial encounter
CPT/HCPCS: 80053; 84703; 85025; 96372; 99283; J1885; J2060; J2270

== ENCOUNTER 2021-05-04 16:42 | Emergency (ER) | payer MEDICAID, SELFPAY ==
[2021-05-04 17:20] VITALS: BP 106/64; PULSE 101; RESP 20; TEMP 36.8; O2SAT 100; BMI 23.2
--- NOTE | 2021-05-04 17:46 | ED_ITS ---
Documented by User: ENOCH Juarez 05/04/21 21:17 HPI - Abdominal Pain General: Chief Complaint: Abdominal Pain Stated Complaint: ABD pain, N/V Time Seen by Provider: 05/04/21 17:26 Source: patient Mode of arrival: ambulatory Limitations: no limitations History of Present Illness: Patient is a 30-year-old female presents to ED today with complaint of right-sided abdominal pain over the past 3 days. Patient states pain is progressively worsened since onset. She reports approximately 2-3 episodes of vomiting earlier today. Bowel movements have been normal. She has not had any urinary symptoms. No flank pain. She is status post cholecystectomy and hysterectomy (unknown whether they performed oophorectomy). Patient has not been running fevers. MD elicited complaint: abdominal pain Onset (ago): day(s) Pain Consistency: constant Location: RUQ and RLQ Severity: severe Radiation: none Migration to: no migration Exacerbating factors: eating Relieving factors: nothing Associated Symptoms: Reports nausea and vomiting; Denies change in bowel habits, change in stool character, chills, diarrhea, dysuria, fever(s), heartburn, hematochezia, hematemesis and melena Related Data: Patient : No Review of Systems Const: Denies: fever(s), chills, body aches, fatigue or malaise Card: Denies: chest pain Resp: Denies: dyspnea GI: Reports: abdominal pain, nausea and vomiting; Denies: hematemesis, heartburn, diarrhea, change in bowel habits, pain on defecation, change in stool character, hematochezia or melena : Denies: flank pain, difficulty voiding, dysuria, urinary frequency, urinary urgency, urinary hesitancy, vaginal bleeding or vaginal discharge Musc: Denies: neck pain, back pain, extremity pain or joint pain Skin/Breast: Denies: rash Neuro: Denies: headache(s), numbness in extremities, weakness in extremities or sensory changes PFSH ED PFSH: Medical History Abnormal uterine bleeding (AUB) Anxiety Bipolar disorder, unspecified Other assisted (current) drug therapy Pelvic pain in female Psychiatric care Surgical History H/O removal of cyst [address] Mosher History of laparoscopy 2010-for endometriosis 2015- for Mirena removal 01/17/2017-performed by Dr. Mosher at [facility] History of tubal ligation 12/2015- per Dr. Mosher at [facility] Family History Mother Stroke Hyperlipidemia Family history of thyroid problem Hypertension Father Degenerative disc disease Diabetes Unknown Breast cancer maternal great aunt Grandmother Ovarian cancer maternal Uterine cancer maternal Social History Smoking and tobacco status: former smoker Quit status (tobacco): has quit using tobacco Year quit tobacco: 05/02/2019 Alcohol intake: never Current gender identity: Female Additional social history: well balanced diet Physical Exam Const: COMMON NORMALS: no acute distress, average body habitus, patient oriented x3, no limitations, healthy appearing, alert and well nourished GENERAL APPEARANCE: cooperative Chest: COMMONS NORMALS: normal inspection of the chest and normal palpation of entire chest wall Resp: COMMON NORMALS: normal respiratory effort and clear to auscultation bilaterally AUSCULTATION: clear to auscultation bilaterally Cardio: COMMON NORMALS: regular rate and regular rhythm RATE: regular rate RHYTHM: regular rhythm GI: COMMON NORMALS: Normal to inspection, nondistended, normoactive bowel sounds present, Soft to palpation, No hepatosplenomegaly present and no masses INSPECTION: Yes normal to inspection AUSCULTATION: Yes normoactive bowel sounds PALPATION: Yes Soft to palpation, Yes Tenderness to palpation present (GI) (pt seated in recliner so exam less than ideal-tender throughout R side) and Yes No hepatosplenomegaly present : COMMON NORMALS: Yes no CVA tenderness BLADDER/KIDNEY EXAM: Yes no CVA tenderness Back/Pelvis: COMMON NORMALS: no CVA tenderness Extremity: GENERAL: Yes normal exam except as noted Neuro: GREGORIO COMA SCALE: document GCS findings [place] coma scale eye opening: Spontaneous Gregorio coma scale verbal response: Orientated Gregorio coma scale motor response: Obey commands Rgegorio coma scale total score: 15 COMMON NORMALS: patient oriented x3, moves all extremities, no focal motor deficits and no sensory deficits noted SENSORIUM/ORIENTATION: Yes alert Skin: COMMON NORMALS: no rashes or lesions noted GENERAL SKIN EXAM: no rashes or lesions noted Course Vital Signs: Vital signs: Vital Signs Temperature 98.2 F 05/04/21 17:20 Pulse Rate 101 H 05/04/21 17:20 Respiratory Rate 18 05/04/21 18:31 Blood Pressure 106/64 05/04/21 17:20 Pulse Oximetry 100 05/04/21 17:20 MDM - Abdominal Pain Medical Decision Making Patient is a 30-year-old here with right-sided abdominal pain over the past 3 days. Clinically is non-ill, non-toxic appearing. She does have tenderness throughout the right side of her abdomen. Vital signs are stable. Labs overall are unremarkable. She does have hematuria on her UA but according the patient this is chronic for her-did recommend she follow-up with her PCP if she has not already regarding this. She is not having any urinary complaints today. CT of her abdomen and pelvis showing a 3.5 cm simple appearing likely physiologic right ovarian cyst. No other abnormalities noted. Discussed treatment at home. Return to ED precautions verbally given to patient. Lab Data : 05/04/21 18:19 05/04/21 18:19 Labs/Radiology: Radiology Impressions Abdomen/Pelvis CT 05/04/21 17:59 IMPRESSION: 1. 3.5 cm simple appearing right ovarian cyst, likely physiologic. 2. No acute abnormality demonstrated in the abdomen and pelvis. Laboratory Results WBC 8.4 10^3/uL (4.0-10.0) 05/04/21 18:19 RBC 5.06 10^6/uL (4.1-5.3) 05/04/21 18:19 Hgb 15.3 g/dL (11.5-15.3) 05/04/21 18:19 Hct 46.9 % (37.0-47.0) 05/04/21 18:19 MCV 92.7 fl (81-99) 05/04/21 18:19 MCH 30.2 pg (28.0-34.0) 05/04/21 18:19 MCHC 32.6 g/dL (30.0-36.0) 05/04/21 18:19 RDW 13.6 % (12.1-15.1) 05/04/21 18:19 Plt Count 379 10^3/cmm (130-400) 05/04/21 18:19 MPV 10.8 fL (7.4-10.4) H 05/04/21 18:19 Neut % (Auto) 63.5 % 05/04/21 18:19 Lymph % (Auto) 29.8 % 05/04/21 18:19 [place] % (Auto) 5.6 % 05/04/21 18:19 Eos % (Auto) 0.4 % 05/04/21 18:19 Baso % (Auto) 0.5 % 05/04/21 18:19 Neut # (Auto) 5.31 10^3/uL (1.8-7.7) 05/04/21 18:19 Lymph # (Auto) 2.5 10^3/uL (0.8-4.8) 05/04/21 18:19 [place] # (Auto) 0.5 10^3/uL (0.2-0.9) 05/04/21 18:19 Eos # (Auto) 0.0 10^3/uL (0.0-0.8) 05/04/21 18:19 Baso # (Auto) 0.0 10^3/uL (0.0-0.1) 05/04/21 18:19 Nucleated RBC % (auto) 0 % 05/04/21 18:19 Nucleated RBCs # 0.0 /100WBC 05/04/21 18:19 Sodium 141 mmol/L (136-145) 05/04/21 18:19 Potassium 3.5 mmol/L (3.5-5.1) 05/04/21 18:19 Chloride 106 mmol/L (98-107) 05/04/21 18:19 Carbon Dioxide 19 mmol/L (22-29) L 05/04/21 18:19 Anion Gap 19.5 (5-19) H 05/04/21 18:19 BUN 15 mg/dL (6-20) 05/04/21 18:19 Creatinine 0.6 mg/dL (0.5-0.9) 05/04/21 18:19 GFR Calculation 116.6 mL/min (90-130) 05/04/21 18:19 Glucose 91 mg/dL (65-115) 05/04/21 18:19 Calculated Osmolality 292 mOsm/kg (285-295) 05/04/21 18:19 Calcium 9.6 mg/dL (8.5-10.5) 05/04/21 18:19 Total Bilirubin 0.3 mg/dL (0.15-1.2) 05/04/21 18:19 AST 25 U/L (0-32) 05/04/21 18:19 ALT 56 U/L (0-33) H 05/04/21 18:19 Alkaline Phosphatase 122 IU/L (35-105) H 05/04/21 18:19 Total Protein 8.3 g/dL (6.6-8.7) 05/04/21 18:19 Albumin 5.2 g/dL (3.5-5.2) 05/04/21 18:19 Globulin 3.1 g/dL (1.3-4.6) 05/04/21 18:19 Lipase 72 U/L (13-60) H 05/04/21 18:19 HCG, Qual Negative (Negative) 05/04/21 18:19 Urine Color Yellow (Yellow) 05/04/21 17:52 Urine Appearance Hazy (CLEAR) A 05/04/21 17:52 Urine pH 5 (5-7) 05/04/21 17:52 Ur Specific [place] 1.025 (1.005-1.030) 05/04/21 17:52 Urine Protein Trace (Negative) 05/04/21 17:52 Urine Glucose (UA) Norm (Normal) 05/04/21 17:52 Urine Ketones 1+ (Negative) H 05/04/21 17:52 Urine Blood 2+ (Negative) H 05/04/21 17:52 Urine Nitrate Negative (Negative) 05/04/21 17:52 Urine Bilirubin 1+ (Negative) H 05/04/21 17:52 Urine Urobilinogen Neg mg/dL (Negative) 05/04/21 17:52 Ur Leukocyte Esterase Negative (Negative) 05/04/21 17:52 Urine RBC 0-4 /hpf (0-2) H 05/04/21 17:52 Urine WBC 0-4 /hpf (0-5) H 05/04/21 17:52 Ur Squamous Epith Cells 5-10 /hpf (0-5) H 05/04/21 17:52 Amorphous Sediment Not Reportable 05/04/21 17:52 Urine Bacteria None /hpf (NONE) 05/04/21 17:52 Urine Mucus 2+ /hpf 05/04/21 17:52 Discharge Plan Discharge Patient Disposition: Home Clinical Impression: Cyst of right ovary Condition: Stable Prescriptions: No Action ondansetron HCl [Zofran] 4 mg tablet 4 mg PO TID PRN (Reason: nausea/vomiting) 0RF gabapentin 300 mg capsule 600 mg PO QID 30 Days Qty: 240 3RF trazodone 150 mg tablet 150 mg PO .qhs 30 Days Qty: 30 3RF buspirone 10 mg tablet 10 mg PO BID PRN (Reason: anxiety) 30 Days Qty: 60 3RF cetirizine [Zyrtec] 10 mg tablet 10 mg PO DAILY PRN (Reason: Allergy Symptoms) 0RF tramadol 50 mg Tablet 50 - 100 mg PO QID PRN (Reason: Pain) 0RF topiramate [Topamax] 100 mg Tablet 100 mg PO TID 0RF tizanidine 4 mg tablet 4 mg PO Q8H PRN (Reason: muscle spasticity) Qty: 10 0RF hydrocodone-acetaminophen 5-325 mg tablet 1 tab PO Q8H PRN (Reason: pain) Qty: 7 0RF Discharge Orders: Discharge ED (Routine); Ordered 05/04/21 Ordered By: Joann Hernandez Referrals: Joaquin Mak MD [Primary Care Provider] - Coding Level of Care Code ED Circular Gang Saw Operator for Chg Fwd Exam Comprehensive Documented by User: Dara Serrato MD 05/05/21 21:41 HPI - Abdominal Pain 2 General: Chief Complaint: Abdominal Pain Stated Complaint: ABD pain, N/V Time Seen by Provider: 05/04/21 17:26 PFSH ED 2 PFSH: Medical History Abnormal uterine bleeding (AUB) Anxiety Bipolar disorder, unspecified Other assisted (current) drug therapy Pelvic pain in female Psychiatric care Surgical History H/O removal of cyst [address] Mosher History of laparoscopy 2010-for endometriosis 2015- for Mirena removal 01/17/2017-performed by Dr. Mosher at [facility] History of tubal ligation 12/2015- per Dr. Mosher at [facility] Family History Mother Stroke Hyperlipidemia Family history of thyroid problem Hypertension Father Degenerative disc disease Diabetes Unknown Breast cancer maternal great aunt Grandmother Ovarian cancer maternal Uterine cancer maternal Social History Smoking and tobacco status: former smoker Quit status (tobacco): has quit using tobacco Year quit tobacco: 05/02/2019 Alcohol intake: never Current gender identity: Female Additional social history: well balanced diet Physical Exam Neuro: GREGORIO COMA SCALE: document GCS findings Gregorio coma scale total score: 15 Course Vital Signs: Vital signs: Vital Signs Temperature 98.2 F 05/04/21 17:20 Pulse Rate 101 H 05/04/21 17:20 Respiratory Rate 18 05/04/21 18:31 Blood Pressure 106/64 05/04/21 17:20 Pulse Oximetry 100 05/04/21 17:20 MDM - Abdominal Pain Medical Decision Making Patient is a 30-year-old here with right-sided abdominal pain over the past 3 days. Clinically is non-ill, non-toxic appearing. She does have tenderness throughout the right side of her abdomen. Vital signs are stable. Labs overall are unremarkable. She does have hematuria on her UA but according the patient this is chronic for her-did recommend she follow-up with her PCP if she has not already regarding this. She is not having any urinary complaints today. CT of her abdomen and pelvis showing a 3.5 cm simple appearing likely physiologic right ovarian cyst. No other abnormalities noted. Discussed treatment at home. Return to ED precautions verbally given to patient. Dr. Serrato - Patient evaluation, diagnosis, and management was performed independently by Joann Hernandez. I did not personally see the patient nor staff the patient with patient's provider. I did review the patient's note today and I believe this note is consistent. Lab Data : 05/04/21 18:19 05/04/21 18:19 Labs/Radiology: Radiology Impressions Abdomen/Pelvis CT 05/04/21 17:59
--- NOTE | 2021-05-04 17:59 | CTR_ITS ---
PROCEDURE INFORMATION: Exam: CT Abdomen And Pelvis With Contrast Exam date and time: 05/04/2021 5:59 PM Age: 30 years old Clinical indication: Abdominal pain; Generalized; Prior surgery; Surgery date: 6+ months; Surgery type: Gb, tubal, hystorectomy; Patient HX: HX of cervical/ovarian CA; Additional info: R abdominal pain; N/v TECHNIQUE: Imaging protocol: Computed tomography of the abdomen and pelvis with contrast. Radiation optimization: All CT scans at this facility use at least one of these dose optimization techniques: automated exposure control; mA and/or kV adjustment per patient size (includes targeted exams where dose is matched to clinical indication); or iterative reconstruction. Contrast material: OMNIPAQUE 300; Contrast volume: 95 ml; Contrast route: INTRAVENOUS (IV); COMPARISON: CT abdomen pelvis wo/w [id number] 05/23/2019 10:36 AM RADIATION DOSE METRICS: Total DLP (mGy-cm): 738.3 FINDINGS: Lungs: The lung bases appear unremarkable. Liver: The liver is unremarkable in appearance. Gallbladder and bile ducts: The gallbladder is surgically absent. Pancreas: The pancreas is normal in appearance. No pancreatic duct dilatation. Spleen: The spleen is normal in size and appearance. Adrenal glands: The adrenal glands appear within normal limits. Kidneys and ureters: The kidneys are normal in morphology. No hydronephrosis. No solid mass. Stomach and bowel: No acute gastric abnormality demonstrated. The small bowel is unremarkable as demonstrated. No acute abnormality/inflammatory change of the colon. Appendix: No evidence of appendicitis. Intraperitoneal space: No pneumoperitoneum. No significant fluid collection. Minimal free intraperitoneal fluid is seen in the cul-de-sac, likely physiologic. Vasculature: The aorta is unremarkable as demonstrated. Lymph nodes: No pathologically enlarged lymph nodes are demonstrated. Urinary bladder: Unremarkable as visualized. Reproductive: 3.5 cm simple appearing right ovarian cyst, likely physiologic. The uterus is not visualized, consistent with hysterectomy. Left ovary appears unremarkable. Bones/joints: No fracture or other acute osseous abnormality. Soft tissues: The soft tissues appear unremarkable. CT/CT abdomen pelvis w con* [id number] IMPRESSION: 1. 3.5 cm simple appearing right ovarian cyst, likely physiologic. 2. No acute abnormality demonstrated in the abdomen and pelvis.
[2021-05-04] MEDS: ondansetron 2 mg/ML SDV 2 mL 4 MG IVP (18:26)
[2021-05-04 18:31] VITALS: RESP 18
[2021-05-04 18:31] LABS: Basophils % 0.5 %; Eosinophils % 0.4 %; Hematocrit 46.9 % (37.0-47.0); Hemoglobin 15.3 g/dL (11.5-15.3); Lymphocytes # 2.5 10^3/uL (0.8-4.8); Lymphocytes % 29.8 %; Mean Corpuscular HGB Conc 32.6 g/dL (30.0-36.0); Mean Corpuscular Hemoglobin 30.2 pg (28.0-34.0); Mean Corpuscular Volume 92.7 fl (81-99); Mean Platelet Volume 10.8 fL (7.4-10.4); Monocytes # 0.5 10^3/uL (0.2-0.9); Monocytes % 5.6 %; Neutrophils # 5.31 10^3/uL (1.8-7.7); Neutrophils % 63.5 %; Nucleated Red Blood Cells % 0 %; Platelet Count 379 10^3/cmm (130-400); Red Blood Count 5.06 10^6/uL (4.1-5.3); Red Cell Distribution Width 13.6 % (12.1-15.1); White Blood Count 8.4 10^3/uL (4.0-10.0)
[2021-05-04] MEDS: morphine 4 mg/mL SDV 1 mL IVP (18:31)
[2021-05-04 18:50] LABS: Specific Gravity, Urine 1.025 (1.005-1.030); Urine Appearance Hazy (CLEAR); Urine Color Yellow (Yellow); pH Urine 5 (5-7)
[2021-05-04 18:51] LABS: Add Urine Culture? No; Add Urine Microscopic? YES; Bilirubin Urine 1+ (Negative); Blood Urine 2+ (Negative); Glucose Urine UA Norm (Normal); Ketones Urine 1+ (Negative); Leukocyte Esterase Urine Negative (Negative); Mucus Urine 2+ /hpf; Nitrate Urine Negative (Negative); Protein Urine Trace (Negative); RBC Urine 0-4 /hpf (0-2); Urobilinogen Urine Neg (Negative); WBC Urine 0-4 /hpf (0-5)
[2021-05-04 18:53] LABS: Alanine Aminotransferase 56 U/L (0-33); Albumin Level 5.2 g/dL (3.5-5.2); Alkaline Phosphatase 122 IU/L (35-105); Anion Gap 19.5 (5-19); Aspartate Amino Transferase 25 U/L (0-32); Blood Urea Nitrogen 15 mg/dL (6-20); Calcium 9.6 mg/dL (8.5-10.5); Carbon Dioxide 19 mmol/L (22-29); Chloride 106 mmol/L (98-107); Globulin 3.1 g/dL (1.3-4.6); Glomerular Filtration Rate 116.6 mL/min (90-130); Glucose 91 mg/dL (65-115); HCG, Serum Qual Negative (Negative); Lipase 72 U/L (13-60); Osmolality Calculated 292 mOsm/kg (285-295); Potassium 3.5 mmol/L (3.5-5.1); Sodium 141 mmol/L (136-145); Total Bilirubin 0.3 mg/dL (0.15-1.2); Total Protein 8.3 g/dL (6.6-8.7)
[2021-05-04] MEDS: iohexol 300 mg/mL 100 mL Btl IV (19:32)
== END 2021-05-04 21:05 | disposition home or self-care (01) ==
PROVIDERS: Emergency Provider Physician Assistant; PCP Family Medicine
DX: N83.201 Unspecified ovarian cyst, right side (principal); Z87.891 Personal history of nicotine dependence
CPT/HCPCS: 74177; 80053; 81001; 83690; 84703; 85025; 96374; 96375; 99283; J2270; J2405; Q9967

== ENCOUNTER 2021-06-11 20:32 | Emergency (ER) | payer MEDICAID, SELFPAY ==
[2021-06-11 20:44] VITALS: BP 117/82; PULSE 81; RESP 16; TEMP 36.4; O2SAT 98; BMI 22.4
[2021-06-11 21:02] VITALS: BP 114/84; PULSE 85; RESP 14; O2SAT 99
--- NOTE | 2021-06-11 21:04 | W.ED.BACK ---
HPI - Back Pain/Injury General: Chief Complaint: Back Pain/Injury Stated Complaint: pulled muscle in back Time Seen by Provider: 06/11/21 20:53 History of Present Illness: Patient says discharge her neck shoulder area every couple months. Has been in pain clinic in past for her low back. Says she has muscle spasms left upper shoulder area now been hurting for last 2 days and not improved any. Associated symptoms: Deny abdominal pain, chills, fever(s), nausea or vomiting Review of Systems Const: Denies: fever(s), chills or body aches Eyes: Denies: eye discomfort ENMT: Denies: throat pain Card: Denies: chest pain Resp: Denies: dyspnea GI: Denies: abdominal pain, nausea or vomiting Musc: Reports: back pain and muscle cramps Skin/Breast: Denies: rash Neuro: Denies: headache(s) Psych: Denies: depression or suicidal ideation PFSH ED PFSH: Medical History Abnormal uterine bleeding (AUB) Anxiety Bipolar disorder, unspecified Other fdc (current) drug therapy Pelvic pain in female Psychiatric care Surgical History H/O removal of cyst [address] Mosher History of laparoscopy 2010-for endometriosis 2015- for Mirena removal 01/17/2017-performed by Dr. Mosher at [facility] History of tubal ligation 12/2015- per Dr. Mosher at [facility] Family History Mother Stroke Hyperlipidemia Family history of thyroid problem Hypertension Father Degenerative disc disease Diabetes Unknown Breast cancer maternal great aunt Grandmother Ovarian cancer maternal Uterine cancer maternal Social History Smoking and tobacco status: former smoker Quit status (tobacco): has quit using tobacco Year quit tobacco: 05/02/2019 Alcohol intake: never Current gender identity: Female Additional social history: well balanced diet Physical Exam Const: COMMON NORMALS: no acute distress, patient oriented x3 and alert HENMT: COMMON NORMALS: normocephalic and external ears normal HEAD & SCALP: normocephalic EXTERNAL EAR: Yes external ears normal Eye: COMMON NORMALS: EOMs intact bilaterally Neck/C-Spine: COMMON NORMALS: no JVD CERVICAL SPINE: Yes cervical ROM normal, No Cervical spine tenderness and Yes Trapezius muscle tenderness left Resp: COMMON NORMALS: normal respiratory effort and No use of accessory muscles Cardio: COMMON NORMALS: no JVD GI: INSPECTION: Yes normal to inspection Back/Pelvis: OTHER: Pain upper back left side with palpation trapezius muscle all way down to the base. Latissimus dorsi in the left is slightly tender. Does have good range of motion of shoulder. Extremity: COMMON NORMALS: normal to inspection and full ROM Neuro: COMMON NORMALS: patient oriented x3 SENSORIUM/ORIENTATION: Yes alert Psych: COMMON NORMALS: mental status grossly normal Skin: COMMON NORMALS: no rashes or lesions noted GENERAL SKIN EXAM: no rashes or lesions noted Course Vital Signs: Vital signs: Vital Signs Temperature 97.6 F 06/11/21 20:44 Pulse Rate 85 06/11/21 21:02 Respiratory Rate 14 06/11/21 21:02 Blood Pressure 114/84 06/11/21 21:02 Pulse Oximetry 99 06/11/21 21:02 MDM - Back Pain/Injury Medical Decision Making Chronic intermittent upper back pain, trapezius pain. Treated and released to follow-up primary care provider. Discharge Plan Discharge Patient Disposition: Home Clinical Impression: Trapezius muscle spasm Condition: Stable Prescriptions: New hydrocodone-acetaminophen 5-325 mg tablet 1 tab PO TID PRN (Reason: pain) Qty: 14 0RF Celebrex 100 mg capsule 100 mg PO BID Qty: 20 0RF Voltaren Arthritis Pain 1 % gel 4 g topical QID Qty: 100 0RF No Action ondansetron HCl [Zofran] 4 mg tablet 4 mg PO TID PRN (Reason: nausea/vomiting) 0RF gabapentin 300 mg capsule 600 mg PO QID 30 Days Qty: 240 3RF trazodone 150 mg tablet 150 mg PO .qhs 30 Days Qty: 30 3RF buspirone 10 mg tablet 10 mg PO BID PRN (Reason: anxiety) 30 Days Qty: 60 3RF cetirizine [Zyrtec] 10 mg tablet 10 mg PO DAILY PRN (Reason: Allergy Symptoms) 0RF tramadol 50 mg Tablet 50 - 100 mg PO QID PRN (Reason: Pain) 0RF topiramate [Topamax] 100 mg Tablet 100 mg PO TID 0RF tizanidine 4 mg tablet 4 mg PO Q8H PRN (Reason: muscle spasticity) Qty: 10 0RF hydrocodone-acetaminophen 5-325 mg tablet 1 tab PO Q8H PRN (Reason: pain) Qty: 7 0RF Discharge Orders: Discharge ED (Routine); Ordered 06/11/21 Ordered By: Rey Gerber Referrals: Joaquin Mak MD [Primary Care Provider] - Discharge Diet: Usual diet Discharge Activity: Increase activity as tolerated Patient Instructions: Muscle Strain (ED), Musculoskeletal Pain (ED) Activity Restrictions/Additional Instructions: Follow-up with medical provider as directed. Take medications as prescribed. Return to the ER or your medical provider if condition worsens. Please read and understand discharge instructions. If any questions ask please. Coding Level of Care Code ED Certification Officer for Mark Fwd Exam Comprehensive
[2021-06-11] MEDS: orphenadrine 30 mg/mL Inj 2 mL 60 MG IM (21:08)
[2021-06-11] MEDS: HYDROcodone-acetaminophen 5-325 mg Tablet 1 TAB PO (21:08)
[2021-06-11] MEDS: ketorolac 60 mg/2 mL INJ IM (21:08)
[2021-06-11 22:09] VITALS: BP 117/87; PULSE 87; RESP 16; O2SAT 100
== END 2021-06-11 22:10 | disposition home or self-care (01) ==
PROVIDERS: Emergency Provider Nurse Practitioner Family; PCP Family Medicine
DX: M62.830 Muscle spasm of back (principal)
CPT/HCPCS: 96372; 99283; J1885; J2360

== ENCOUNTER → 2021-06-29 08:58 | Outpatient (BNVA) | payer OTHER, MEDICAID, SELFPAY | PROVIDERS: PCP Family Medicine; Visit Provider Social Worker | DX: F31.0 Bipolar disorder, current episode hypomanic (principal); F41.1 Generalized anxiety disorder | CPT/HCPCS: 90791 ==

== ENCOUNTER → 2021-07-26 08:46 | Outpatient (BNVA) | payer OTHER, MEDICAID, SELFPAY | PROVIDERS: PCP Family Medicine; Visit Provider Social Worker | DX: F31.0 Bipolar disorder, current episode hypomanic (principal); F41.1 Generalized anxiety disorder | CPT/HCPCS: 90837 ==

== ENCOUNTER → 2021-08-11 10:13 | Outpatient (BNVA) | payer OTHER, MEDICAID, SELFPAY | PROVIDERS: PCP Family Medicine; Visit Provider Psychiatry & Neurology Psychiatry | DX: F31.0 Bipolar disorder, current episode hypomanic (principal) | CPT/HCPCS: 99214 ==

== ENCOUNTER 2021-09-04 16:45 | Emergency (ER) | payer MEDICAID, SELFPAY ==
[2021-09-04 17:00] VITALS: BP 113/78; PULSE 94; RESP 16; TEMP 36.9; O2SAT 97
--- NOTE | 2021-09-04 18:18 | ED_ITS ---
HPI - Back Pain/Injury General: Chief Complaint: Back Pain/Injury Stated Complaint: back/neck pain Time Seen by Provider: 09/04/21 18:10 Source: patient Mode of arrival: ambulatory Limitations: no limitations History of Present Illness: Patient is a 30-year-old female who presents to ED today with complaint that she most likely strained some muscles in her neck and back. Patient tells me 2 days ago she was at the vet office with her large 70 to 80 pound lab and states she was trying to restrain him on the table. She states that with a combination of him pulling on the leash as well as her trying to wrestle him , she believes she aggravated her neck/back. Patient states she has strained the muscles in her neck and back several times previously and states that is normally treated successfully with anti-inflammatories/muscle relaxers. She has no other injuries or complaints at this time. No radicular symptoms. MD elicited complaint: back pain Onset (ago): day(s) Timing: constant Similar Symptoms Previously: Yes Radiation: none Exacerbating factors: movement Relieving factors: none Associated symptoms: Reports no associated symptoms; Deny abdominal pain, chills, fatigue or fever(s) Work related injury: No Review of Systems Const: Denies: fever(s), chills, body aches, fatigue or malaise Eyes: Denies: change in vision Card: Denies: chest pain Resp: Denies: dyspnea GI: Denies: abdominal pain Musc: Reports: neck pain and back pain; Denies: extremity pain, extremity swelling, joint pain, joint swelling, joint redness, joint stiffness or limited range of motion Neuro: Denies: headache(s), numbness in extremities, weakness in extremities or sensory changes [facility] ED PFSH: Medical History Abnormal uterine bleeding (AUB) Anxiety Bipolar disorder, unspecified Other custodial (current) drug therapy Pelvic pain in female Psychiatric care Surgical History H/O removal of cyst [address] Mosher History of laparoscopy 2010-for endometriosis 2015- for Mirena removal 01/17/2017-performed by Dr. Mosher at [facility] History of tubal ligation 12/2015- per Dr. Mosher at [facility] Family History Mother Stroke Hyperlipidemia Family history of thyroid problem Hypertension Father Degenerative disc disease Diabetes Unknown Breast cancer maternal great aunt Grandmother Ovarian cancer maternal Uterine cancer maternal Social History Smoking and tobacco status: former smoker Quit status (tobacco): has quit using tobacco Year quit tobacco: 05/02/2019 Alcohol intake: never Current gender identity: Female Additional social history: well balanced diet Physical Exam Const: COMMON NORMALS: no acute distress, average body habitus, patient oriented x3, no limitations, alert and well nourished GENERAL APPEARANCE: cooperative ORIENTATION/CONSCIOUSNESS: Yes awake, Yes oriented to person, Yes oriented to place and Yes oriented to time Neck/C-Spine: COMMON NORMALS: full ROM GENERAL: Yes normal visual inspection, No anterior neck swelling, No lymphadenopathy and No submandibular swelling CERVICAL SPINE: Yes cervical ROM normal, No pain with cervical ROM, No Cervical spine tenderness, No step off deformity, Yes Paracervical muscle tenderness, No Paracervical spasm and Yes Trapezius muscle tenderness Chest: COMMONS NORMALS: normal inspection of the chest and normal palpation of entire chest wall Resp: COMMON NORMALS: normal respiratory effort and clear to auscultation bilaterally AUSCULTATION: clear to auscultation bilaterally Cardio: COMMON NORMALS: regular rate and regular rhythm RATE: regular rate RHYTHM: regular rhythm Back/Pelvis: COMMON NORMALS: thoracic and lumbar spine normal to inspection, no thoracic nor lumbar tenderness and thoraco-lumbar ROM normal THORACIC SPINE/UPPER BACK: Yes normal to inspection, Yes thoracic ROM normal, No thoracic spinal tenderness, Yes paraspinal muscle tenderness and No paraspinal muscle spasm LUMBAR SPINE/LOWER BACK: Yes normal to inspection, Yes lumbar ROM no rmal, No lumbar spinal tenderness, Yes paraspinal muscle tenderness and No paraspinal muscle spasm PELVIS: Yes buttocks normal SACROILIAC JOINTS: Yes SI joints normal SACRUM: no tenderness COCCYX: no tenderness OTHER: diffuse musculoskeletal tenderness throughout mid/lower back Extremity: COMMON NORMALS: normal to inspection and full ROM GENERAL: Yes normal exam except as noted Neuro: GREGORIO COMA SCALE: document GCS findings [place] coma scale eye opening: Spontaneous Gregorio coma scale verbal response: Orientated [place] coma scale motor response: Obey commands Gregorio coma scale total score: 15 COMMON NORMALS: patient oriented x3, moves all extremities, no focal motor deficits, no sensory deficits noted and gait normal SENSORIUM/ORIENTATION: Yes alert, Yes oriented to person, Yes oriented to place and Yes oriented to time Skin: COMMON NORMALS: no rashes or lesions noted GENERAL SKIN EXAM: no rashes or lesions noted Course Vital Signs: Vital signs: Vital Signs Temperature 98.4 F 09/04/21 17:00 Pulse Rate 94 09/04/21 17:00 Respiratory Rate 16 09/04/21 17:00 Blood Pressure 113/78 09/04/21 17:00 Pulse Oximetry 97 09/04/21 17:00 MDM - Back Pain/Injury Medical Decision Making Patient given IM norflex/toradol here. Will DC home with NSAID/muscle relaxer/steroid. Recommend follow up with PCP in one week if symptoms do not seem to be improving. Return to ED precautions given. Discharge Plan Discharge Patient Disposition: Home Clinical Impression: Muscle strain of upper back Condition: Stable Prescriptions: New methocarbamol 500 mg tablet 1,000 mg PO Q8H Qty: 30 0RF ibuprofen 800 mg tablet 800 mg PO Q8H PRN (Reason: pain) Qty: 20 0RF Medrol (Soto) 4 mg tablets,dose pack See Rx Instructions .ROUTE .COMPLEX Qty: 21 0RF Rx Instructions: orally per package directions No Action cetirizine [Zyrtec] 10 mg tablet 10 mg PO DAILY PRN (Reason: Allergy Symptoms) 0RF buspirone 10 mg tablet 10 mg PO BID PRN (Reason: anxiety) 30 Days Qty: 60 3RF gabapentin 300 mg capsule 600 mg PO QID 30 Days Qty: 240 3RF tramadol 50 mg Tablet 50 - 100 mg PO QID PRN (Reason: Pain) 0RF topiramate [Topamax] 100 mg Tablet 100 mg PO TID 0RF Discharge Orders: Discharge ED (Routine); Ordered 09/04/21 Ordered By: Joann Hernandez Referrals: Joaquin Mak MD [Primary Care Provider] - Patient Instructions: Muscle Strain (DC) 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
[2021-09-04] MEDS: ketorolac 60 mg/2 mL INJ IM (18:32)
[2021-09-04] MEDS: orphenadrine 30 mg/mL Inj 2 mL 60 MG IM (18:32)
== END 2021-09-04 18:33 | disposition home or self-care (01) ==
PROVIDERS: Emergency Provider Physician Assistant; PCP Family Medicine
DX: S29.012A Strain of muscle and tendon of back wall of thorax, initial encounter (principal); Z87.891 Personal history of nicotine dependence; X50.9XXA Other and unspecified overexertion or strenuous movements or postures, initial encounter
CPT/HCPCS: 96372; 99284; J1885; J2360

== ENCOUNTER 2021-10-19 16:41 | Emergency (ER) | payer MEDICAID, SELFPAY ==
[2021-10-19 17:44] VITALS: BP 130/84; PULSE 99; RESP 14; TEMP 36.7; O2SAT 99; BMI 21.2
--- NOTE | 2021-10-19 17:54 | ED_ITS ---
HPI - Back Pain/Injury General: Chief Complaint: Back Pain/Injury Stated Complaint: Says she has a pulled muscle from hip to neck Time Seen by Provider: 10/19/21 17:54 History of Present Illness: 31-year-old female comes in today with complaints of right lower back pain. Patient reports discomfort since Sunday had went to the chiropractor on Sunday and since then has had worse pain and discomfort. Patient denied any falls or other injuries. Patient reports no loss of bowel or bladder control. Patient reports difficulty sleeping at night due to pain. 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 Mosher History of laparoscopy 2010-for endometriosis 2015- for Mirena removal 01/17/2017-performed by Dr. Mosher at [facility] History of tubal ligation 12/2015- per Dr. Mosher at [facility] Family History Mother Stroke Hyperlipidemia Family history of thyroid problem Hypertension Father Degenerative disc disease Diabetes Unknown Breast cancer maternal great aunt Grandmother Ovarian cancer maternal Uterine cancer maternal Social History Smoking and tobacco status: former smoker Quit status (tobacco): has quit using tobacco Year quit tobacco: 05/02/2019 Alcohol intake: never Current gender identity: Female Additional social history: well balanced diet Physical Exam Const: COMMON NORMALS: alert HENMT: COMMON NORMALS: normocephalic HEAD & SCALP: normocephalic Neck/C-Spine: COMMON NORMALS: full ROM Resp: COMMON NORMALS: normal respiratory effort Cardio: COMMON NORMALS: regular rate RATE: regular rate Back/Pelvis: THORACIC SPINE/UPPER BACK: No thoracic spinal tenderness LUMBAR SPINE/LOWER BACK: No lumbar spinal tenderness, Yes paraspinal muscle tenderness and Yes paraspinal muscle spasm Lumbar paraspinal muscle spasm: right Extremity: COMMON NORMALS: normal to inspection Neuro: SENSORIUM/ORIENTATION: Yes alert Skin: COMMON NORMALS: turgor normal GENERAL SKIN EXAM: turgor normal Course Vital Signs: Vital signs: Vital Signs Temperature 98.1 F 10/19/21 17:44 Pulse Rate 99 10/19/21 17:44 Respiratory Rate 14 10/19/21 17:44 Blood Pressure 130/84 10/19/21 17:44 Pulse Oximetry 99 10/19/21 17:44 Oxygen Delivery Me thod 10/19/21 17:44 MDM - Back Pain/Injury Medical Decision Making 31-year-old female comes in today with complaints of low back pain. On exam patient has no vertebral tenderness on palpation, patient has paraspinous muscle tenderness on the lower lumbar right side. Patient is guarded with movement due to pain. Patient has had a history of prior back pain. Vital signs are normal. Differential diagnosis includes intervertebral disc disease, facet arthropathy, muscle strain. Patient was treated with 30 mg of Toradol, 60 mg orphenadrine, and 1 hydrocodone 5 mg tablet. Patient be continued on diclofenac and hydrocodone. Encourage plenty of fluids with medications and light activity. Patient reported understanding and agreed to plan. Discharge Plan Discharge Patient Disposition: Home Clinical Impression: Strain of lumbar region Qualifiers: Encounter type: initial encounter Qualified Code(s): S39.012A - Strain of muscle, fascia and tendon of lower back, initial encounter Condition: Stable Prescriptions: New diclofenac sodium 75 mg tablet,delayed release (DR/EC) 75 mg PO BID Qty: 20 0RF hydrocodone-acetaminophen 5-325 mg tablet 1 tab PO Q8H PRN (Reason: pain) Qty: 10 0RF Discontinued tramadol 50 mg Tablet 50 - 100 mg PO QID PRN (Reason: Pain) methocarbamol 500 mg tablet 1,000 mg PO Q8H Qty: 30 0RF ibuprofen 800 mg tablet 800 mg PO Q8H PRN (Reason: pain) Qty: 20 0RF methylprednisolone [Medrol (Soto)] 4 mg tablets,dose pack See Rx Instructions .ROUTE .COMPLEX Qty: 21 0RF Rx Instructions: orally per package directions No Action cetirizine [Zyrtec] 10 mg tablet 10 mg PO DAILY PRN (Reason: Allergy Symptoms) buspirone 10 mg tablet 10 mg PO BID PRN (Reason: anxiety) 30 Days Qty: 60 3RF gabapentin 300 mg capsule 600 mg PO QID 30 Days Qty: 240 3RF topiramate [Topamax] 100 mg Tablet 100 mg PO TID Discharge Orders: Discharge ED (Routine); Ordered 10/19/21 Ordered By: Jeffrey Buchanan Referrals: Joaquin Mak MD [Primary Care Provider] - Discharge Diet: Usual diet Discharge Activity: Increase activity as tolerated Patient Instructions: Low Back Strain (ED), Lower Back Exercises (ED) Activity Restrictions/Additional Instructions: Use acetaminophen to help control pain. Take diclofenac twice a day for pain and inflammation. Use hydrocodone as needed for severe pain. Use ice or heat for further pain relief. Drink plenty of water with medication. Gentle stretching and range of motion exercises. Try to maintain normal activity as much as possible. Follow-up with primary care in 1 week for recheck. Return to ER for new concerns such as fever greater than 100.4, blood in vomit or stool, or loss of bowel or bladder control. 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
[2021-10-19] MEDS: orphenadrine 30 mg/mL Inj 2 mL 60 MG IM (18:12)
[2021-10-19] MEDS: ketorolac 30 mg/mL INJ IM (18:12)
[2021-10-19] MEDS: HYDROcodone-acetaminophen 5-325 mg Tablet 1 TAB PO (18:12)
== END 2021-10-19 18:19 | disposition home or self-care (01) ==
PROVIDERS: Emergency Provider Nurse Practitioner Family; PCP Family Medicine
DX: S39.012A Strain of muscle, fascia and tendon of lower back, initial encounter (principal); Z87.891 Personal history of nicotine dependence; X58.XXXA Exposure to other specified factors, initial encounter
CPT/HCPCS: 96372; 99284; J1885; J2360

== ENCOUNTER 2022-02-28 16:45 | Emergency (ER) | payer MEDICAID, SELFPAY ==
[2022-02-28 17:22] VITALS: BP 116/84; PULSE 98; RESP 16; TEMP 36.8; O2SAT 100; BMI 22.1
--- NOTE | 2022-02-28 17:30 | W.ED.NECK ---
HPI - Neck Pain/Injury General: Chief Complaint: Neck Pain/Injury Stated Complaint: Left side neck pain Time Seen by Provider: 02/28/22 17:30 History of Present Illness: Patient reports that she has a strained muscle in her neck. Patient reports that she was lifting something yesterday and now her neck is hurting. 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 She has been taking naproxen and Excedrin with no effect. She denies any possibility of . Associated symptoms: Denies headache(s) or nausea Review of Systems Const: Denies: fever(s) or chills Card: Denies: chest pain or palpitations Resp: Denies: dyspnea, productive cough or non-productive cough GI: Denies: abdominal pain, nausea or vomiting : Denies: flank pain, difficulty voiding or dysuria Musc: Reports: neck pain Neuro: Denies: headache(s), numbness in extremities or weakness in extremities PFSH ED PFSH: Medical History Abnormal uterine bleeding (AUB) Anxiety Bipolar disorder, unspecified Depression Other custodial (current) drug therapy Pelvic pain in female Psychiatric care Surgical History H/O removal of cyst [address] Mosher History of laparoscopy 2010-for endometriosis 2015- for Mirena removal 01/17/2017-performed by Dr. Mosher at [facility] History of tubal ligation 12/2015- per Dr. Mosher at [facility] Family History Mother Stroke Hyperlipidemia Family history of thyroid problem Hypertension Father Degenerative disc disease Diabetes Unknown Breast cancer maternal great aunt Grandmother Ovarian cancer maternal Uterine cancer maternal Social History Smoking and tobacco status: former smoker Quit status (tobacco): has quit using tobacco Year quit tobacco: 05/02/2019 Alcohol intake: never Current gender identity: Female Additional social history: well balanced diet Physical Exam Const: COMMON NORMALS: patient oriented x3 and alert OTHER: Patient in obvious pain. She is sitting in the chair holding the back of her neck and shoulder. Neck/C-Spine: OTHER: Patient with limited range of motion side to side turning due to pain. No vertebral point tenderness or step-off appreciated to the cervical spine. There is muscular tension appreciated to the left side trapezius around and scapula. Palpation of the muscular knot reproduces pain complaint Resp: COMMON NORMALS: normal respiratory effort and No use of accessory muscles Neuro: COMMON NORMALS: patient oriented x3, moves all extremities and no focal motor deficits SENSORIUM/ORIENTATION: Yes alert Course Vital Signs: Vital signs: Vital Signs Temperature 98.2 F 02/28/22 17:22 Pulse Rate 98 02/28/22 17:22 Respiratory Rate 16 02/28/22 17:22 Blood Pressure 116/84 02/28/22 17:22 Pulse Oximetry 100 02/28/22 17:22 Oxygen Delivery Me thod 02/28/22 17:22 MDM - Neck Pain/Injury Medical Decision Making Consider muscle spasm, muscle strain We will treat patient conservatively. 1 dose of Toradol and 1 dose of Flexeril provided in ER tonight. Send patient home with a short-term prescription for Flexeril as needed. Educated her about possible benefits and side effects of the medication. Advised her of conservative treatment at home for muscle spasm and strain. Discussed typical course of injury. Follow-up with primary care provider as needed. Return to the ER for new or worsening symptoms Discharge Plan Discharge Patient Disposition: Home Clinical Impression: Strain of neck muscle Condition: Stable Prescriptions: New cyclobenzaprine 10 mg tablet 10 mg PO TID PRN (Reason: muscle spasm) Qty: 9 0RF No Action tramadol 50 mg tablet 100 mg PO Q4H PRN citalopram 10 mg tablet 10 mg PO DAILY 30 Days Qty: 30 3RF gabapentin 300 mg capsule 600 mg PO QID 30 Days Qty: 240 3RF buspirone 10 mg tablet 10 mg PO BID PRN (Reason: anxiety) 30 Days Qty: 60 3RF topiramate [Topamax] 100 mg Tablet 100 mg PO TID Discharge Orders: Discharge ED (Routine); Ordered 02/28/22 Ordered By: Amelie Harrison Referrals: Joaquin Mak MD [Primary Care Provider] - Discharge Diet: Usual diet Discharge Activity: Increase activity as tolerated Patient Instructions: Muscle Strain (ED) Activity Restrictions/Additional Instructions: Use Flexeril as directed as needed. Do not take this medication with any other medications that make you sleepy. Do not take the medication with alcohol. Do not drive after taking the medication. I recommend warm moist compresses to the area and gentle stretching. No lifting for 2 to 3 days. Follow-up with primary care provider as needed. Return to the ER for new or worsening symptoms Coding Level of Care Code ED Size Maker for Mark Berg
[2022-02-28] MEDS: cyclobenzaprine 10 mg Tablet PO (18:38)
[2022-02-28] MEDS: ketorolac 60 mg/2 mL INJ IM (18:38)
== END 2022-02-28 18:51 | disposition home or self-care (01) ==
PROVIDERS: Emergency Provider Nurse Practitioner Family; PCP Family Medicine
DX: S16.1XXA Strain of muscle, fascia and tendon at neck level, initial encounter (principal); Z87.891 Personal history of nicotine dependence; X50.0XXA Overexertion from strenuous movement or load, initial encounter
CPT/HCPCS: 96372; 99284; J1885

== ENCOUNTER → 2022-04-27 09:53 | Outpatient (BNVA) | payer MEDICAID, SELFPAY | PROVIDERS: PCP Family Medicine; Visit Provider Internal Medicine Rheumatology | DX: M19.90 Unspecified osteoarthritis, unspecified site (principal); Z11.59 Encounter for screening for other viral diseases; Z79.899 Other long term (current) drug therapy | CPT/HCPCS: 36415; 73130; 73630; 80076; 82306; 82565; 85025; 85651; 86140; 86200; 86431; 86480; 86704; 86803; 87340 ==

== ENCOUNTER 2022-05-06 08:29 | Emergency (ER) | payer MEDICAID, SELFPAY ==
[2022-05-06 08:33] VITALS: BP 130/97; PULSE 98; O2SAT 100; BMI 23.6
--- NOTE | 2022-05-06 08:45 | ED_ITS ---
Documented by User: HAIM Diaz 05/06/22 09:56 HPI - General Adult General: Chief complaint: General Medical Stated complaint: Right side hip pain Time Seen by Provider: 05/06/22 08:32 History of Present Illness: Mary Nesbitt is a 1-year-old female that presents to the emergency department with complaints of sciatica. She reports that her pain begins in the SI joint and extends down into the foot. She describes the pain as throbbing. She has had symptoms like this for 12 years but this episode started several days ago. Patient has been seen by her primary care provider who has diagnosed her with psoriatic arthritis/rheumatoid arthritis. He has prescribed tramadol, gabapentin, and methotrexate. Patient has not started the methotrexate yet. Patient denies weakness, saddle paresthesias, numbness and tingling in her extremities. She does report symptoms in left lower extremity intermittently but the right lower extremity is much worse. Associated symptoms: Deny confusion, headache(s), malaise or rash Review of Systems General: Reports: 10 or more systems reviewed and unremarkable except in HPI and below Const: Denies: fever(s), chills, change in appetite, change in weight, fatigue or malaise Musc: Reports: back pain, extremity pain, joint pain, limited range of motion and muscle cramps; Denies: neck pain or muscle weakness Skin/Breast: Denies: rash, pruritus, erythema or new lesions Neuro: Denies: headache(s), numbness in extremities, weakness in extremities, sensory changes, lack of coordination, difficulty walking, frequent falls, dizziness, confusion, Slurred speech present, difficulty communicating thoughts, seizure-like activity or involuntary movements Endo: Denies: polyuria, polydipsia or tired all the time Damien/Lymph: Denies: easy bruising or easy bleeding PFSH ED PFSH: Medical History (Updated 05/06/22 @ 09:47 by HAIM Diaz) Abnormal uterine bleeding (AUB) Anxiety Bipolar disorder, unspecified Depression Family history of psoriasis in father High risk medication use Immunization counseling Inflammatory arthritis Inflammatory back pain Other long-term (current) drug therapy Pelvic pain in female Psychiatric care Surgical History (Updated 04/27/22 @ 09:08 by Noemi Gaviria LPN) H/O removal of cyst [address] Mosher History of laparoscopy 2010-for endometriosis 2015- for Mirena removal 01/17/2017-performed by Dr. Mosher at [facility] History of tubal ligation 12/2015- per Dr. Mosher at [facility] Family History (Updated 04/27/22 @ 09:09 by Noemi Gaviria LPN) Mother Stroke Hyperlipidemia Family history of thyroid problem Hypertension Father Degenerative disc disease Diabetes Unknown Breast cancer maternal great aunt Grandmother Ovarian cancer maternal Uterine cancer maternal Other Cancer Chronic kidney disease (CKD) Rheumatoid arthritis Denies family history of Lupus Social History Smoking and tobacco status: former smoker Quit status (tobacco): has quit using tobacco Year quit tobacco: 05/02/2019 Alcohol intake: never Current gender identity: Female Additional social history: well balanced diet Physical Exam Const: COMMON NORMALS: no acute distress, patient oriented x3 and alert GENERAL APPEARANCE: cooperative ORIENTATION/CONSCIOUSNESS: Yes awake, Yes oriented to person, Yes oriented to place and Yes oriented to time HENMT: COMMON NORMALS: normocephalic and atraumatic HEAD & SCALP: normocephalic and atraumatic FACE & SINUS: normal facial exam MOUTH: Normal oral and palatal mucosa present THROAT: posterior oropharynx normal Eye: COMMON NORMALS: Equal, round and reactive pupils present, EOMs intact bilaterally, conjunctivae normal and no scleral icterus GENERAL EYE: appearance normal, both eyes and all related structures ALIGNMENT: Yes alignment normal PERIORBITAL: periorbital findings normal CONJUNCTIVA: Yes conjunctivae normal PUPIL: Yes Equal, round and reactive pupils present Neck/C-Spine: COMMON NORMALS: full ROM GENERAL: Yes normal visual inspection Lymph: LYMPHATIC: no lymphadenopathy noted Chest: COMMONS NORMALS: normal inspection of the chest Breast/axilla inspection: Yes no chest deformity, asymmetry, normal contours, no nodules, masses, tenderness Resp: COMMON NORMALS: normal respiratory effort, No retractions, No use of accessory muscles and clear to auscultation bilaterally EFFORT & INSPECTION: Yes able to speak in complete sentences and Yes symmetric chest movement AUSCULTATION: clear to auscultation bilaterally Cardio: COMMON NORMALS: regular rate, regular rhythm and Peripheral pulses 2+ throughout RATE: regular rate RHYTHM: regular rhythm PERIPHERAL PULSES: Peripheral pulses 2+ throughout GI: COMMON NORMALS: Normal to inspection, nondistended, normoactive bowel sounds present, Soft to palpation, non-tender and No hepatosplenomegaly present INSPECTION: Yes normal to inspection AUSCULTATION: Yes normoactive bowel sounds PALPATION: Yes Soft to palpation and Yes No hepatosplenomegaly present RECTAL EXAM: deferred Extremity: COMMON NORMALS: normal to inspection GENERAL: Yes normal exam except as noted Neuro: COMMON NORMALS: patient oriented x3 SENSORIUM/ORIENTATION: Yes alert, Yes oriented to person, Yes oriented to place and Yes oriented to time CRANIAL NERVES: Yes CN normal except as noted Psych: COMMON NORMALS: mental status grossly normal, Normal thought process present, cooperative, activity/motor behavior normal, denies homicidal ideation and denies suicidal ideation THOUGHT PROCESS: Normal thought process present Skin: COMMON NORMALS: no rashes or lesions noted, no wounds and turgor normal GENERAL SKIN EXAM: no rashes or lesions noted and turgor normal Course Vital Signs: Vital signs: Vital Signs Pulse Rate 74 05/06/22 10:04 Respiratory Rate 16 05/06/22 10:04 Blood Pressure 132/71 05/06/22 10:04 Pulse Oximetry 98 05/06/22 10:04 Oxygen Delivery Me thod 05/06/22 08:33 [facility] - General Adult Medical Decision Making Patient was evaluated in the emergency department today for chronic low back pain that radiates down the right lower extremity. Denies any new injury or trauma. Patient denies any new symptoms but pain is worse at this time. Patient is using heat, tramadol, gabapentin, cyclobenzaprine, citalopram for pain/radiculopathy. Patient also has methotrexate but is not able to start until this coming Sunday. Do not believe any further diagnostics are warranted at this time since her symptoms are largely unchanged and she is denies any trauma. I did provide her with some pain relief. This was adequately achieved with Toradol, Norflex, dexamethasone IM and 1 oral [place]. And is going to discharge home with ketorolac. She is to call Dr. Mak's office to discuss further treatment. Patient has been told to return to the emergency department for new concerning or worsening symptoms. Questions sought and answered Discharge Plan Discharge Patient Disposition: Home Clinical Impression: Pain in right lumbar region of back, Radiculopathy Condition: Stable Prescriptions: New ketorolac 10 mg tablet 10 mg PO Q8H 5 Days Qty: 15 0RF No Action prednisone 20 mg tablet See Rx Instructions PO .COMPLEX PRN (Reason: joint pain flare) Qty: 30 1RF Rx Instructions: take 1 or 2 tab daily for 3-7 days as needed for arthritis flare PO PRN; tramadol 50 mg tablet 100 mg PO Q4H PRN citalopram 10 mg tablet 10 mg PO DAILY 30 Days Qty: 30 3RF ondansetron 4 mg tablet,disintegrating 4 mg PO Q8H PRN (Reason: nausea and vomiting) Qty: 14 0RF gabapentin 300 mg capsule 600 mg PO QID 30 Days Qty: 240 3RF buspirone 10 mg tablet 10 mg PO BID PRN (Reason: anxiety) 30 Days Qty: 60 3RF methotrexate sodium 2.5 mg tablet See Rx Instructions PO Q7D Qty: 30 3RF Rx Instructions: take 6 tabs once weekly/every sunday PO every 7 days; folic acid 1 mg tablet 1 mg PO DAILY Qty: 30 3RF topiramate [Topamax] 100 mg Tablet 100 mg PO TID cyclobenzaprine 10 mg tablet 10 mg PO TID PRN (Reason: muscle spasm) Qty: 9 0RF Discharge Orders: Discharge ED (Routine); Ordered 05/06/22 Ordered By: Neida Bond Referrals: Joaquin Mak MD [Primary Care Provider] - Discharge Diet: Advance as tolerated Discharge Activity: Resume usual activity and Increase activity as tolerated Patient Instructions: Lumbar Radiculopathy (ED), Lower Back Exercises (ED), Op ioid Safety, Pain Management Activity Restrictions/Additional Instructions: Please return to the emergency department for new, concerning, worsening symptoms I have prescribed you ketorolac. Another name for this is Toradol. Please do not take any additional nonsteroidal anti-inflammatory drugs while taking this medication. Take your other prescriptions as prescribed Follow-up with Dr. Mak as previously planned Coding Level of Care Code ED Facilities Operations Technician for [facility] Documented by User: rKis Odell DO 05/08/22 06:48 HPI - General Adult General: Chief complaint: General Medical Stated complaint: Right side hip pain Time Seen by Provider: 05/06/22 08:32 PFSH ED PFSH: Medical History (Updated 05/06/22 @ 09:47 by HAIM Diaz) Abnormal uterine bleeding (AUB) Anxiety Bipolar disorder, unspecified Depression Family history of psoriasis in father High risk medication use Immunization counseling Inflammatory arthritis Inflammatory back pain Other emt intermediate (current) drug therapy Pelvic pain in female Psychiatric care Surgical History (Updated 04/27/22 @ 09:08 by Noemi Gaviria LPN) H/O removal of cyst [address] Mosher History of laparoscopy 2010-for endometriosis 2015- for Mirena removal 01/17/2017-performed by Dr. Mosher at [facility] History of tubal ligation 12/2015- per Dr. Mosher at [facility] Family History (Updated 04/27/22 @ 09:09 by Noemi Gaviria LPN) Mother Stroke Hyperlipidemia Family history of thyroid problem Hypertension Father Degenerative disc disease Diabetes Unknown Breast cancer maternal great aunt Grandmother Ovarian cancer maternal Uterine cancer maternal Other Cancer Chronic kidney disease (CKD) Rheumatoid arthritis Denies family history of Lupus Social History Smoking and tobacco status: former smoker Quit status (tobacco): has quit using tobacco Year quit tobacco: 05/02/2019 Alcohol intake: never Current gender identity: Female Additional social history: well balanced diet Course Vital Signs: Vital signs: Vital Signs Pulse Rate 74 05/06/22 10:04 Respiratory Rate 16 05/06/22 10:04 Blood Pressure 132/71 05/06/22 10:04 Pulse Oximetry 98 05/06/22 10:04 Oxygen Delivery Me thod 05/06/22 08:33 MDM - General Adult Medical Decision Making Patient was evaluated in the emergency department today for chronic low back pain that radiates down the right lower extremity. Denies any new injury or trauma. Patient denies any new symptoms but pain is worse at this time. Patient is using heat, tramadol, gabapentin, cyclobenzaprine, citalopram for pain/radiculopathy. Patient also has methotrexate but is not able to start until this coming Sunday. Do not believe any further diagnostics are warranted at this time since her symptoms are largely unchanged and she is denies any trauma. I did provide her with some pain relief. This was adequately achieved with Toradol, Norflex, dexamethasone IM and 1 oral [place]. And is going to discharge home with ketorolac. She is to call Dr. Mak's office to discuss further treatment. Patient has been told to return to the emergency department for new concerning or worsening symptoms. Questions sought and answered Chart reviewed and patient discussed with midlevel. Agree with assessment and plan. Discharge Plan Discharge Patient Disposition: Home Clinical Impression: Pain in right lumbar region of back, Radiculopathy Condition: Stable Prescriptions: New ketorolac 10 mg tablet 10 mg PO Q8H 5 Days Qty: 15 0RF No Action prednisone 20 mg tablet See Rx Instructions PO .COMPLEX PRN (Reason: joint pain flare) Qty: 30 1RF Rx Instructions: take 1 or 2 tab daily for 3-7 days as needed for arthritis flare PO PRN; tramadol 50 mg tablet 100 mg PO Q4H PRN citalopram 10 mg tablet 10 mg PO DAILY 30 Days Qty: 30 3RF ondansetron 4 mg tablet,disintegrating 4 mg PO Q8H PRN (Reason: nausea and vomiting) Qty: 14 0RF gabapentin 300 mg capsule 600 mg PO QID 30 Days Qty: 240 3RF buspirone 10 mg tablet 10 mg PO BID PRN (Reason: anxiety) 30 Days Qty: 60 3RF methotrexate sodium 2.5 mg tablet See Rx Instructions PO Q7D Qty: 30 3RF Rx Instructions: take 6 tabs once weekly/every sunday PO every 7 days; folic acid 1 mg tablet 1 mg PO DAILY Qty: 30 3RF topiramate [Topamax] 100 mg Tablet 100 mg PO TID cyclobenzaprine 10 mg tablet 10 mg PO TID PRN (Reason: muscle spasm) Qty: 9 0RF Discharge Orders: Discharge ED (Routine); Ordered 05/06/22 Ordered By: Neida Bond Referrals: Joaquin Mak MD [Primary Care Provider] - Discharge Diet: Advance as tolerated Discharge Activity: Resume usual activity and Increase activity as tolerated Patient Instructions: Lumbar Radiculopathy (ED), Lower Back Exercises (ED), Opioid Safety, Pain Management Activity Restrictions/Additional Instructions: Please return to the emergency department for new, concerning, worsening symptoms I have prescribed you ketorolac. Another name for this is Toradol. Please do not take any additional nonsteroidal anti-inflammatory drugs while taking this medication. Take your other prescriptions as prescribed Follow-up with Dr. Mak as previously planned Coding Level of Care Code ED Facilities Operations Technician for [facility]
[2022-05-06] MEDS: orphenadrine 30 mg/mL Inj 2 mL 60 MG IM (08:50)
[2022-05-06] MEDS: ketorolac 60 mg/2 mL INJ IM (08:50)
[2022-05-06] MEDS: dexamethasone 10 mg/mL INJ IM (08:50)
[2022-05-06] MEDS: HYDROcodone-acetaminophen 5-325 mg Tablet 1 TAB PO (09:53)
[2022-05-06 10:04] VITALS: BP 132/71; PULSE 74; RESP 16; O2SAT 98
== END 2022-05-06 10:05 | disposition home or self-care (01) ==
PROVIDERS: Emergency Provider Nurse Practitioner; PCP Family Medicine
DX: M54.16 Radiculopathy, lumbar region (principal); Z87.891 Personal history of nicotine dependence
CPT/HCPCS: 96372; 99284; J1100; J1885; J2360

== ENCOUNTER 2022-06-15 08:21 | Emergency (ER) | payer MEDICAID, SELFPAY ==
[2022-06-15 08:31] VITALS: BP 146/91; PULSE 94; RESP 16; TEMP 36.4; O2SAT 96; BMI 23.4
--- NOTE | 2022-06-15 08:37 | CT_ITS ---
WS: [id number] CT ABDOMEN PELVIS TECHNIQUE: Contrast-enhanced CT of the abdomen and pelvis with coronal and sagittal reformatted image s. CLINICAL INFORMATION: R sided ab pain, N/V COMPARISON: CT 3 DLP: 319.[address] scans at [facility] use at least one of these dose optimization techniques: automated e xposure control; mA and/or kV adjustment per patient size (includes targeted exams where dose is matc hed to clinical indication); or iterative reconstruction. FINDINGS: Inspissated secretions in the appendix with a small amount of inflammatory stranding suspic ious for acute appendicitis. Inspissated secretions are new from previous. Appendix measures approxim ately 6 mm in transverse dimension. Appendix extends cephalad lateral to the cecum. Bilobed RIGHT ovarian cyst measuring 3.1 x 2.9 and 2.9 x 2.7 CM. Trace free fluid in the cul-de-sac. Moderate pancolonic constipation worse involving the RIGHT colon and cecum. Lung bases are well aerated. Diffuse fatty infiltration liver. Mild hepatomegaly. Cholecystectomy cli ps. Normal portal vein and splenic vein. Adrenal glands are normal. Normal GE junction. Normal spleen . Normal renal parenchymal enhancement. No hydronephrosis. Normal bilateral ureteral excretion. Contrast visualized in the bladder. Normal sigmoid colon. CT/CT abdomen pelvis w con* [id number] IMPRESSION: 1. Findings suspicious for acute appendicitis as described above. Note appendi x extends cephalad lateral to the cecum. 2. Lobulated bilobed RIGHT ovarian cyst measuring 3.1 x 2.9 2.9 x 2.7 CM. This extends into the RIGHT pelvis. Trace free fluid in the cul-de-sac. Similar-corrina earing cysts are present previously 3. Mild hepatomegaly diffuse fatty infiltration. 4. Prior cholecystectomy. 5. Normal renal excretion. No hydronephrosis. 6. Moderate colon constipation. Notified ENOCH Juarez at 06/15/2022 10:23 AM.
--- NOTE | 2022-06-15 08:38 | ED_ITS ---
Documented by User: ENOCH Juarez 06/15/22 11:02 HPI - Abdominal Pain General: Chief Complaint: Abdominal Pain Stated Complaint: right side pain Time Seen by Provider: 06/15/22 08:22 Source: patient Mode of arrival: ambulatory Limitations: no limitations History of Present Illness: Patient is a 31-year-old female presents to ED today with a complaint of right- sided abdominal pain that began yesterday. She states since onset pain has been constant and rating it as severe. She has not found any alleviating or worsening factors to her discomfort. She states she began feeling nauseous yesterday and throughout the night and into today has had multiple episodes of n onbloody emesis. She states she has not had a bowel movement in 2 days. Is passing flatulence. No documented fevers. Denies dysuria, frequency, urgency, hematuria. Previous abdominal surgeries include a cholecystectomy. MD elicited complaint: abdominal pain Pertinent past history: none Onset (ago): day(s) (yesterday) Pain Consistency: constant Location: RUQ and RLQ Severity: severe Radiation: none Migration to: no migration Exacerbating factors: nothing Relieving factors: nothing Associated Symptoms: Reports nausea and vomiting; Denies chills, diarrhea, dysuria, fever(s), hematochezia and melena Related Data: Patient : No Review of Systems Const: Denies: fever(s), chills, body aches, fatigue or malaise Card: Denies: chest pain Resp: Denies: dyspnea GI: Reports: abdominal pain, nausea and vomiting; Denies: diarrhea, rectal pain, hematochezia or melena : Denies: flank pain, difficulty voiding, dysuria, urinary frequency or urinary urgency Musc: Reports: back pain (reports chronic back pain); Denies: neck pain, extremity pain or joint pain Skin/Breast: Denies: rash Neuro: Denies: headache(s), numbness in extremities, weakness in extremities or sensory changes PFSH ED PFSH: Medical History Abnormal uterine bleeding (AUB) Anxiety Bipolar disorder, unspecified Depression Family history of psoriasis in father High risk medication use Immunization counseling Inflammatory arthritis Inflammatory back pain Other correction (current) drug therapy Pelvic pain in female Psychiatric care Surgical History H/O removal of cyst [address] Mosher History of laparoscopy 2010-for endometriosis 2015- for Mirena removal 01/17/2017-performed by Dr. Mosher at [facility] History of tubal ligation 12/2015- per Dr. Mosher at [facility] Family History Mother Stroke Hyperlipidemia Family history of thyroid problem Hypertension Father Degenerative disc disease Diabetes Unknown Breast cancer maternal great aunt Grandmother Ovarian cancer maternal Uterine cancer maternal Other Cancer Chronic kidney disease (CKD) Rheumatoid arthritis Denies family history of Lupus Social History Smoking and tobacco status: former smoker Quit status (tobacco): has quit using tobacco Year quit tobacco: 05/02/2019 Alcohol intake: never Substance/Drug Use: never Current gender identity: Female Additional social history: well balanced diet Physical Exam Const: COMMON NORMALS: no acute distress, average body habitus, patient oriented x3, no limitations, healthy appearing, alert and well nourished GENERAL APPEARANCE: cooperative ORIENTATION/CONSCIOUSNESS: Yes awake, Yes oriented to person, Yes oriented to place and Yes oriented to time HENMT: COMMON NORMALS: normocephalic and atraumatic HEAD & SCALP: normal to inspection, normocephalic and atraumatic Eye: COMMON NORMALS: no scleral icterus Chest: COMMONS NORMALS: normal inspection of the chest and normal palpation of entire chest wall Resp: COMMON NORMALS: normal respiratory effort and clear to auscultation bilaterally AUSCULTATION: clear to auscultation bilaterally Cardio: COMMON NORMALS: regular rate and regular rhythm RATE: regular rate RHYTHM: regular rhythm GI: COMMON NORMALS: Normal to inspection, nondistended, normoactive bowel sounds present, Soft to palpation, No hepatosplenomegaly present and no masses INSPECTION: Yes normal to inspection AUSCULTATION: Yes normoactive bowel sounds PALPATION: Yes Soft to palpation, Yes Tenderness to palpation present (GI) (throughout R side of abdomen; no lower pelvic tenderness), No Guarding due to palpation present (GI), No Rigid due to palpation and Yes No hepatosplenomegaly present : COMMON NORMALS: Yes no CVA tenderness BLADDER/KIDNEY EXAM: Yes no CVA tenderness Back/Pelvis: COMMON NORMALS: no CVA tenderness THORACIC SPINE/UPPER BACK: Yes normal to inspection, No thoracic spinal tenderness, No paraspinal muscle tenderness and No paraspinal muscle spasm LUMBAR SPINE/LOWER BACK: Yes lumbar ROM normal, No lumbar spinal tenderness and Yes paraspinal muscle tenderness (pt has a heating pad on her back) PELVIS: Yes buttocks normal SACROILIAC JOINTS: Yes SI joints normal SACRUM: no tenderness COCCYX: no tenderness Extremity: COMMON NORMALS: normal to inspection GENERAL: Yes normal exam except as noted Neuro: GREGORIO COMA SCALE: document GCS findings [place] coma scale eye opening: Spontaneous Gregorio coma scale verbal response: Orientated Gregorio coma scale motor response: Obey commands Gregorio coma scale total score: 15 COMMON NORMALS: patient oriented x3, moves all extremities, no focal motor deficits and no sensory deficits noted SENSORIUM/ORIENTATION: Yes alert, Yes oriented to person, Yes oriented to place and Yes oriented to time SPEECH: speech normal Skin: COMMON NORMALS: no rashes or lesions noted GENERAL SKIN EXAM: no rashes or lesions noted Course Consultations: Consultation #1: Dr. Luke-will come evaluate patient in the ED Vital Signs: Vital signs: Vital Signs Temperature 97.5 F L 06/15/22 08:31 Pulse Rate 89 06/15/22 11:23 Respiratory Rate 20 H 06/15/22 10:54 Blood Pressure 127/85 06/15/22 11:23 Pulse Oximetry 96 06/15/22 11:23 Oxygen Delivery Me thod Room Air 06/15/22 08:31 MDM - Abdominal Pain Medical Decision Making Patient is a 31-year-old female presents to ED today with complaint of right- sided abdominal pains, nausea, vomiting beginning yesterday. Patient's vital signs are stable upon arrival. Blood work is unremarkable. CT imaging suspicious for acute appendicitis with anticipated secretions in her appendix with a small amount of inflammatory stranding. General surgeon Dr. Luke was consulted who evaluated patient in the emergency department. He does not feel patient's clinical exam or her CT findings are consistent with acute appendicitis and recommends discharging patient home. Please refer to his specific note for further documentation. Patient was counseled extensively on return precautions. Lab Data 06/15/22 08:51 06/15/22 08:51 Labs/Radiology: Radiology Impressions Abdomen/Pelvis CT 06/15/22 08:37 IMPRESSION: 1. Findings suspicious for acute appendicitis as described above. Note appendix extends cephalad lateral to the cecum. 2. Lobulated bilobed RIGHT ovarian cyst measuring 3.1 x 2.9 2.9 x 2.7 CM. This extends into the RIGHT pelvis. Trace free fluid in the cul-de-sac. Similar- appearing cysts are present previously 3. Mild hepatomegaly diffuse fatty infiltration. 4. Prior cholecystectomy. 5. Normal renal excretion. No hydronephrosis. 6. Moderate colon constipation. Notified ENOCH Juarez at 06/15/2022 10:23 AM. Laboratory Results WBC 8.5 10^3/uL (4.0-10.0) 06/15/22 08:51 RBC 4.48 10^6/uL (4.1-5.3) 06/15/22 08:51 Hgb 13.3 g/dL (11.5-15.3) 06/15/22 08:51 Hct 41.5 % (37.0-47.0) 06/15/22 08:51 MCV 92.6 fl (81-99) 06/15/22 08:51 MCH 29.7 pg (28.0-34.0) 06/15/22 08:51 MCHC 32.0 g/dL (30.0-36.0) 06/15/22 08:51 RDW 12.1 % (12.1-15.1) 06/15/22 08:51 Plt Count 354 10^3/cmm (130-400) 06/15/22 08:51 MPV 10.6 fL (7.4-10.4) H 06/15/22 08:51 Neut % (Auto) 79.6 % 06/15/22 08:51 Lymph % (Auto) 14.8 % 06/15/22 08:51 [place] % (Auto) 4.1 % 06/15/22 08:51 Eos % (Auto) 0.6 % 06/15/22 08:51 Baso % (Auto) 0.5 % 06/15/22 08:51 Neut # (Auto) 6.74 10^3/uL (1.8-7.7) 06/15/22 08:51 Lymph # (Auto) 1.3 10^3/uL (0.8-4.8) 06/15/22 08:51 [place] # (Auto) 0.4 10^3/uL (0.2-0.9) 06/15/22 08:51 Eos # (Auto) 0.1 10^3/uL (0.0-0.8) 06/15/22 08:51 Baso # (Auto) 0.0 10^3/uL (0.0-0.1) 06/15/22 08:51 Nucleated RBC % (auto) 0 % 06/15/22 08:51 Nucleated RBCs # 0.0 /100WBC 06/15/22 08:51 Sodium 136 mmol/L (136-145) 06/15/22 08:51 Potassium 3.9 mmol/L (3.5-5.1) 06/15/22 08:51 Chloride 106 mmol/L (98-107) 06/15/22 08:51 Carbon Dioxide 20 mmol/L (22-29) L 06/15/22 08:51 Anion Gap 13.9 (5-19) 06/15/22 08:51 BUN 11 mg/dL (6-20) 06/15/22 08:51 Creatinine 0.6 mg/dL (0.5-0.9) 06/15/22 08:51 GFR Calculation 115.9 mL/min (90-130) 06/15/22 08:51 Glucose 92 mg/dL (65-115) 06/15/22 08:51 Calculated Osmolality 281 mOsm/kg (285-295) L 06/15/22 08:51 Calcium 8.7 mg/dL (8.5-10.5) 06/15/22 08:51 Total Bilirubin 0.2 mg/dL (0.15-1.2) 06/15/22 08:51 AST 14 U/L (0-32) 06/15/22 08:51 ALT 15 U/L (0-33) 06/15/22 08:51 Alkaline Phosphatase 117 U/L (35-105) H 06/15/22 08:51 Total Protein 7.2 g/dL (6.6-8.7) 06/15/22 08:51 Albumin 4.4 g/dL (3.5-5.2) 06/15/22 08:51 Globulin 2.8 g/dL (1.3-4.6) 06/15/22 08:51 Lipase 16 U/L (13-60) 06/15/22 08:51 HCG, Qual Negative (Negative) 06/15/22 08:51 Urine Color Yellow (Yellow) 06/15/22 10:30 Urine Appearance Clear (CLEAR) 06/15/22 10:30 Urine pH 8 (5-7) H 06/15/22 10:30 Ur Specific [place] 1.015 (1.005-1.030) 06/15/22 10:30 Urine Protein Neg (Negative) 06/15/22 10:30 Urine Glucose (UA) Norm (Normal) 06/15/22 10:30 Urine Ketones Negative (Negative) 06/15/22 10:30 Urine Blood Neg (Negative) 06/15/22 10:30 Urine Nitrate Negative (Negative) 06/15/22 10:30 Urine Bilirubin Neg (Negative) 06/15/22 10:30 Prot Sulfosalicylic Acd Negative (Negative) 06/15/22 10:30 Urine Urobilinogen Neg mg/dL (Negative) 06/15/22 10:30 Ur Leukocyte Esterase Negative (Negative) 06/15/22 10:30 Discharge Plan Discharge Patient Disposition: Home Clinical Impression: Right sided abdominal pain, Cyst of right ovary Condition: Stable Prescriptions: New ondansetron 4 mg tablet,disintegrating 4 mg PO Q8H PRN (Reason: nausea and vomiting) Qty: 14 0RF No Action tramadol 50 mg tablet 100 mg PO Q4H PRN (Reason: Pain) ondansetron 4 mg tablet,disintegrating 4 mg PO Q8H PRN (Reason: nausea and vomiting) Qty: 14 0RF gabapentin 300 mg capsule 600 mg PO QID 30 Days Qty: 240 3RF leflunomide 10 mg tablet 10 mg PO DAILY Qty: 30 3RF topiramate [Topamax] 100 mg Tablet 100 mg PO TID Vitamin D3 25 mcg (1,000 unit) Capsule 50 mcg PO DAILY Discharge Orders: Discharge ED (Routine); Ordered 06/15/22 Ordered By: Joann Hernandez Referrals: Joaquin Mak MD [Primary Care Provider] - Patient Instructions: Abdominal Pain (ED) Activity Restrictions/Additional Instructions: As we have discussed her general surgeon consulted with you and felt your abdominal pain was not secondary to acute appendicitis. CT scan did show mode rate constipation. You may begin a capful of MiraLAX twice daily over the next 3 to 4 days to help alleviate constipation. You need to return to the emergency department for worsening abdominal pain, continued nausea and vomiting, fevers greater than 100.4, generally feeling worse or unwell, or any other concerns you may have. Coding Level of Care Code ED Decatizer for Chg Fwd Documented by User: Kris Odell DO 06/15/22 12:07 HPI - Abdominal Pain General: Chief Complaint: Abdominal Pain Stated Complaint: right side pain Time Seen by Provider: 06/15/22 08:22 PFS ED PFSH: Medical History Abnormal uterine bleeding (AUB) Anxiety Bipolar disorder, unspecified Depression Family history of psoriasis in father High risk medication use Immunization counseling Inflammatory arthritis Inflammatory back pain Other correction (current) drug therapy Pelvic pain in female Psychiatric care Surgical History H/O removal of cyst [address] Mosher History of laparoscopy 2010-for endometriosis 2015- for Mirena removal 01/17/2017-performed by Dr. Mosher at [facility] History of tubal ligation 12/2015- per Dr. Mosher at [facility] Family History Mother Stroke Hyperlipidemia Family history of thyroid problem Hypertension Father Degenerative disc disease Diabetes Unknown Breast cancer maternal great aunt Grandmother Ovarian cancer maternal Uterine cancer maternal Other Cancer Chronic kidney disease (CKD) Rheumatoid arthritis Denies family history of Lupus Social History Smoking and tobacco status: former smoker Quit status (tobacco): has quit using tobacco Year quit tobacco: 05/02/2019 Alcohol intake: never Substance/Drug Use: never Current gender identity: Female Additional social history: well balanced diet Physical Exam Neuro: GREGORIO COMA SCALE: document GCS findings Gregorio coma scale total score: 15 Course Vital Signs: Vital signs: Vital Signs Temperature 97.5 F L 06/15/22 08:31 Pulse Rate 89 06/15/22 11:23 Respiratory Rate 20 H 06/15/22 10:54 Blood Pressure 127/85 06/15/22 11:23 Pulse Oximetry 96 06/15/22 11:23 Oxygen Delivery Me thod Room Air 06/15/22 08:31 MDM - Abdominal Pain Medical Decision Making Patient is a 31-year-old female presents to ED today with complaint of right- sided abdominal pains, nausea, vomiting beginning yesterday. Patient's vital signs are stable upon arrival. Blood work is unremarkable. CT imaging suspicious for acute appendicitis with anticipated secretions in her appendix with a small amount of inflammatory stranding. General surgeon Dr. Luke was consulted who evaluated patient in the emergency department. He does not feel patient's clinical exam or her CT findings are consistent with acute appendicitis and recommends discharging patient home. Please refer to his specific note for further documentation. Patient was counseled extensively on return precautions. Chart reviewed and patient discussed with midlevel. Agree with assessment and p giana. CT read as consistent with acute appendicitis. Surgery consult was requested. Dr. Luke seen the patient clinically did not feel there was a appendicitis present recommended discharge and monitoring with return if she has any worsening symptoms. Lab Data 06/15/22 08:51 06/15/22 08:51 Labs/Radiology: Radiology Impressions Abdomen/Pelvis CT 06/15/22 08:37 IMPRESSION: 1. Findings suspicious for acute appendicitis as described above. Note appendix extends cephalad lateral to the cecum. 2. Lobulated bilobed RIGHT ovarian cyst measuring 3.1 x 2.9 2.9 x 2.7 CM. This extends into the RIGHT pelvis. Trace free fluid in the cul-de-sac. Similar- appearing cysts are present previously 3. Mild hepatomegaly diffuse fatty infiltration. 4. Prior cholecystectomy. 5. Normal renal excretion. No hydronephrosis. 6. Moderate colon constipation. Notified ENOCH Juarez at 06/15/2022 10:23 AM. Laboratory Results WBC 8.5 10^3/uL (4.0-10.0) 06/15/22 08:51 RBC 4.48 10^6/uL (4.1-5.3) 06/15/22 08:51 Hgb 13.3 g/dL (11.5-15.3) 06/15/22 08:51 Hct 41.5 % (37.0-47.0) 06/15/22 08:51 MCV 92.6 fl (81-99) 06/15/22 08:51 MCH 29.7 pg (28.0-34.0) 06/15/22 08:51 MCHC 32.0 g/dL (30.0-36.0) 06/15/22 08:51 RDW 12.1 % (12.1-15.1) 06/15/22 08:51 Plt Count 354 10^3/cmm (130-400) 06/15/22 08:51 MPV 10.6 fL (7.4-10.4) H 06/15/22 08:51 Neut % (Auto) 79.6 % 06/15/22 08:51 Lymph % (Auto) 14.8 % 06/15/22 08:51 [place] % (Auto) 4.1 % 06/15/22 08:51 Eos % (Auto) 0.6 % 06/15/22 08:51 Baso % (Auto) 0.5 % 06/15/22 08:51 Neut # (Auto) 6.74 10^3/uL (1.8-7.7) 06/15/22 08:51 Lymph # (Auto) 1.3 10^3/uL (0.8-4.8) 06/15/22 08:51 [place] # (Auto) 0.4 10^3/uL (0.2-0.9) 06/15/22 08:51 Eos # (Auto) 0.1 10^3/uL (0.0-0.8) 06/15/22 08:51 Baso # (Auto) 0.0 10^3/uL (0.0-0.1) 06/15/22 08:51 Nucleated RBC % (auto) 0 % 06/15/22 08:51 Nucleated RBCs # 0.0 /100WBC 06/15/22 08:51 Sodium 136 mmol/L (136-145) 06/15/22 08:51 Potassium 3.9 mmol/L (3.5-5.1) 06/15/22 08:51 Chloride 106 mmol/L (98-107) 06/15/22 08:51 Carbon Dioxide 20 mmol/L (22-29) L 06/15/22 08:51 Anion Gap 13.9 (5-19) 06/15/22 08:51 BUN 11 mg/dL (6-20) 06/15/22 08:51 Creatinine 0.6 mg/dL (0.5-0.9) 06/15/22 08:51 GFR Calculation 115.9 mL/min (90-130) 06/15/22 08:51 Glucose 92 mg/dL (65-115) 06/15/22 08:51 Calculated Osmolality 281 mOsm/kg (285-295) L 06/15/22 08:51 Calcium 8.7 mg/dL (8.5-10.5) 06/15/22 08:51 Total Bilirubin 0.2 mg/dL (0.15-1.2) 06/15/22 08:51 AST 14 U/L (0-32) 06/15/22 08:51 ALT 15 U/L (0-33) 06/15/22 08:51 Alkaline Phosphatase 117 U/L (35-105) H 06/15/22 08:51 Total Protein 7.2 g/dL (6.6-8.7) 06/15/22 08:51 Albumin 4.4 g/dL (3.5-5.2) 06/15/22 08:51 Globulin 2.8 g/dL (1.3-4.6) 06/15/22 08:51 Lipase 16 U/L (13-60) 06/15/22 08:51 HCG, Qual Negative (Negative) 06/15/22 08:51 Urine Color Yellow (Yellow) 06/15/22 10:30 Urine Appearance Clear (CLEAR) 06/15/22 10:30 Urine pH 8 (5-7) H 06/15/22 10:30 Ur Specific [place] 1.015 (1.005-1.030) 06/15/22 10:30 Urine Protein Neg (Negative) 06/15/22 10:30 Urine Glucose (UA) Norm (Normal) 06/15/22 10:30 Urine Ketones Negative (Negative) 06/15/22 10:30 Urine Blood Neg (Negative) 06/15/22 10:30 Urine Nitrate Negative (Negative) 06/15/22 10:30 Urine Bilirubin Neg (Negative) 06/15/22 10:30 Prot Sulfosalicylic Acd Negative (Negative) 06/15/22 10:30 Urine Urobilinogen Neg mg/dL (Negative) 06/15/22 10:30 Ur Leukocyte Esterase Negative (Negative) 06/15/22 10:30 Discharge Plan Discharge Patient Disposition: Home Clinical Impression: Right sided abdominal pain, Cyst of right ovary Condition: Stable Prescriptions: New ondansetron 4 mg tablet,disintegrating 4 mg PO Q8H PRN (Reason: nausea and vomiting) Qty: 14 0RF No Action tramadol 50 mg tablet 100 mg PO Q4H PRN (Reason: Pain) ondansetron 4 mg tablet,disintegrating 4 mg PO Q8H PRN (Reason: nausea and vomiting) Qty: 14 0RF gabapentin 300 mg capsule 600 mg PO QID 30 Days Qty: 240 3RF leflunomide 10 mg tablet 10 mg PO DAILY Qty: 30 3RF topiramate [Topamax] 100 mg Tablet 100 mg PO TID Vitamin D3 25 mcg (1,000 unit) Capsule 50 mcg PO DAILY Discharge Orders: Discharge ED (Routine); Ordered 06/15/22 Ordered By: Joann Hernandez Referrals: Joaquin Mak MD [Primary Care Provider] - Patient Instructions: Abdominal Pain (ED) Activity Restrictions/Additional Instructions: As we have discussed her general surgeon consulted with you and felt your abdominal pain was not secondary to acute appendicitis. CT scan did show moderate constipation. You may begin a capful of MiraLAX twice daily over the next 3 to 4 days to help alleviate constipation. You need to return to the emergency department for worsening abdominal pain, continued nausea and vomiting, fevers greater than 100.4, generally feeling worse or unwell, or any other concerns you may have. Coding Level of Care Code ED Decatizer for Mark Berg
[2022-06-15 08:55] VITALS: RESP 18
[2022-06-15] MEDS: morphine 4 mg/mL SDV 1 mL IVP ×2 (08:55→10:54)
[2022-06-15] MEDS: ondansetron 2 mg/ML SDV 2 mL 4 MG IVP (08:55)
[2022-06-15 09:00] LABS: Basophils % 0.5 %; Eosinophils # 0.1 10^3/uL (0.0-0.8); Eosinophils % 0.6 %; Hematocrit 41.5 % (37.0-47.0); Hemoglobin 13.3 g/dL (11.5-15.3); Lymphocytes # 1.3 10^3/uL (0.8-4.8); Lymphocytes % 14.8 %; Mean Corpuscular Hemoglobin 29.7 pg (28.0-34.0); Mean Corpuscular Volume 92.6 fl (81-99); Mean Platelet Volume 10.6 fL (7.4-10.4); Monocytes # 0.4 10^3/uL (0.2-0.9); Monocytes % 4.1 %; Neutrophils # 6.74 10^3/uL (1.8-7.7); Neutrophils % 79.6 %; Nucleated Red Blood Cells % 0 %; Platelet Count 354 10^3/cmm (130-400); Red Blood Count 4.48 10^6/uL (4.1-5.3); Red Cell Distribution Width 12.1 % (12.1-15.1); White Blood Count 8.5 10^3/uL (4.0-10.0)
[2022-06-15 09:22] LABS: Alanine Aminotransferase 15 U/L (0-33); Albumin Level 4.4 g/dL (3.5-5.2); Alkaline Phosphatase 117 U/L (35-105); Anion Gap 13.9 (5-19); Aspartate Amino Transferase 14 U/L (0-32); Blood Urea Nitrogen 11 mg/dL (6-20); Calcium 8.7 mg/dL (8.5-10.5); Carbon Dioxide 20 mmol/L (22-29); Chloride 106 mmol/L (98-107); Globulin 2.8 g/dL (1.3-4.6); Glomerular Filtration Rate 115.9 mL/min (90-130); Glucose 92 mg/dL (65-115); Lipase 16 U/L (13-60); Osmolality Calculated 281 mOsm/kg (285-295); Potassium 3.9 mmol/L (3.5-5.1); Sodium 136 mmol/L (136-145); Total Bilirubin 0.2 mg/dL (0.15-1.2); Total Protein 7.2 g/dL (6.6-8.7)
[2022-06-15 09:28] LABS: HCG, Serum Qual Negative (Negative)
[2022-06-15] MEDS: iohexol 350 mg/mL 500 mL Btl (per mL) IV (09:52)
[2022-06-15 09:55] VITALS: BP 125/85; PULSE 89; O2SAT 99
[2022-06-15] MEDS: sodium chloride 0.9% 1,000 ML 999 ML IV (09:59)
[2022-06-15 10:40] LABS: Add Urine Microscopic? NO; Charge for UA Resulting for Rev
[2022-06-15 10:41] VITALS: BP 131/88; PULSE 87; O2SAT 100
--- NOTE | 2022-06-15 10:47 | P.CONIM_ITS ---
Providers/Reason For Consult Consulting Physician/Specialty*: Emergency room physician Reason for Consult*: Abdominal pain Primary Care Provider: Joaquin Mak MD History of Present Illness History of Present Illness Mary Nesbitt is a 31 year old female who presents with a 12 to 24-hour history of abdominal pain, nausea and vomiting. The patient has not had a bowel movement in 24 to 48 hours. The patient denies fever or chills. Nobody else has been sick in the house. The patient's story is not consistent with acute a ppendicitis. The patient stated that the pain started suddenly. The patient's pain has been constant in the right lower quadrant. Nothing she knows makes the pain better or worse. The pain is again constant. Is not colicky. Review of Systems General: Reports: 10 or more systems reviewed and unremarkable except in HPI and below Medications/Allergies Home Medications Medication Instructions Recorded Confirmed Last Taken Type topiramate 100 mg tablet (Topamax) 100 mg PO TID 11/10/20 06/15/22 11/11/20 History tramadol 50 mg tablet 100 mg PO Q4H PRN Pain 01/17/22 06/15/22 Unknown History ondansetron 4 mg disintegrating 4 mg PO Q8H PRN nausea and 04/01/22 06/15/22 Unknown Rx tablet vomiting #14 tabs gabapentin 300 mg capsule 600 mg PO QID 30 days #240 caps 05/16/22 06/15/22 Unknown Rx leflunomide 10 mg tablet 10 mg PO DAILY #30 tabs 05/30/22 06/15/22 Unknown Rx cholecalciferol (vitamin D3) 25 50 mcg PO DAILY 06/15/22 06/15/22 Unknown History mcg (1,000 unit) capsule (Vitamin D3) Allergies Allergy/AdvReac Type Severity Reaction Status Date / Time Latex, Natural Rubber Allergy Intermediate rash, hives Verified 04/01/22 17:38 amoxicillin Allergy ALGY-Hives Verified 04/01/22 17:38 methotrexate AdvReac Intermediate migraines, Verified 05/29/22 16:42 N/V PFSH Acute PFSH: Medical History Abnormal uterine bleeding (AUB) Anxiety Bipolar disorder, unspecified Depression Family history of psoriasis in father High risk medication use Immunization counseling Inflammatory arthritis Inflammatory back pain 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 Mosher History of laparoscopy 2010-for endometriosis 2015- for Mirena removal 01/17/2017-performed by Dr. Mosher at [facility] History of tubal ligation 12/2015- per Dr. Mosher at [facility] Family History Mother Stroke Hyperlipidemia Family history of thyroid problem Hypertension Father Degenerative disc disease Diabetes Unknown Breast cancer maternal great aunt Grandmother Ovarian cancer maternal Uterine cancer maternal Other Cancer Chronic kidney disease (CKD) Rheumatoid arthritis Denies family history of Lupus Social History Smoking and tobacco status: former smoker Quit status (tobacco): has quit using tobacco Year quit tobacco: 05/02/2019 Alcohol intake: never Substance/Drug Use: never Current gender identity: Female Additional social history: well balanced diet Vitals/I&O/Wt Last Vital Signs Temp 97.5 F L 06/15/22 08:31 Pulse 87 06/15/22 10:41 Resp 18 06/15/22 08:55 BP 131/88 06/15/22 10:41 Pulse Ox 100 06/15/22 10:41 O2 Del Method Room Air 06/15/22 08:31 Weight last 48 hrs Weight 116 lb Physical Exam Narrative: Generally: No acute distress HEENT: Normocephalic atraumatic Lungs: Clear to auscultation Heart: Regular rate and rhythm Abdomen: Nondistended, soft nontender. The patient has no tenderness in the right lower quadrant. There is no Rovsing sign. There is no hernias that I can appreciate. Extremities: There is no clubbing cyanosis or edema Neurologic: Patient awake, alert, oriented x3. The patient moves all 4 extremities without difficulty. The patient sensations intact to light touch throughout. Data 06/15/22 08:51 06/15/22 08:51 Attestation for Other Data: I personally reviewed and interpreted the following: (I reviewed all the patient's labs from today as well as the patient CT scan of the abdomen and pelvis) A&P Assessment and plan (1) Abdominal pain: I reviewed the patient's CT scan and an length. Although the patient's appendix is 6 mm, there is no surrounding edema or inflammation. There is no fat stranding. The patient's physical examination is not consistent with acute appendicitis, in my opinion. The patient has a large amount of stool throughout her colon. I believe the patient could use a laxative or two. I spoke to the patient at length. I told her I do not believe she has acute appendicitis. I told her I could be wrong. I told her if her pain is persistent for her to return to the emergency room and I am happy to see her at any time. Coding Level of Care Code 26554 Diagnoses Abdominal pain R10.9
[2022-06-15 10:54] VITALS: RESP 20
[2022-06-15 11:05] LABS: Bilirubin Urine Neg (Negative); Blood Urine Neg (Negative); Glucose Urine UA Norm (Normal); Ketones Urine Negative (Negative); Leukocyte Esterase Urine Negative (Negative); Nitrate Urine Negative (Negative); Protein Urine Neg (Negative); Specific Gravity, Urine 1.015 (1.005-1.030); Sulfosalicylic Acid Urine Negative (Negative); Urine Appearance Clear (CLEAR); Urine Color Yellow (Yellow); Urobilinogen Urine Neg (Negative); pH Urine 8 (5-7)
[2022-06-15 11:23] VITALS: BP 127/85; PULSE 89; O2SAT 96
== END 2022-06-15 11:24 | disposition home or self-care (01) ==
PROVIDERS: Emergency Provider Physician Assistant; PCP Family Medicine
DX: N83.291 Other ovarian cyst, right side (principal); R10.9 Unspecified abdominal pain
CPT/HCPCS: 74177; 80053; 81003; 83690; 84703; 85025; 96361; 96374; 96375; 96376; 99285; J2270; J2405; J7030; Q9967

== ENCOUNTER 2022-06-19 12:46 | Observation (INO) | payer MEDICAID, SELFPAY ==
[2022-06-19 12:51] VITALS: BP 125/77; PULSE 107; RESP 20; TEMP 36.8; O2SAT 96; BMI 23.4
[2022-06-19 13:41] LABS: Basophils # 0.1 10^3/uL (0.0-0.1); Basophils % 0.4 %; Eosinophils # 0.2 10^3/uL (0.0-0.8); Eosinophils % 1.1 %; Hematocrit 44.3 % (37.0-47.0); Hemoglobin 14.7 g/dL (11.5-15.3); Lymphocytes # 1.9 10^3/uL (0.8-4.8); Lymphocytes % 13.5 %; Mean Corpuscular HGB Conc 33.2 g/dL (30.0-36.0); Mean Corpuscular Hemoglobin 29.6 pg (28.0-34.0); Mean Corpuscular Volume 89.3 fl (81-99); Mean Platelet Volume 10.9 fL (7.4-10.4); Monocytes # 0.9 10^3/uL (0.2-0.9); Monocytes % 6.6 %; Neutrophils # 10.94 10^3/uL (1.8-7.7); Nucleated Red Blood Cells % 0 %; Platelet Count 426 10^3/cmm (130-400); Red Blood Count 4.96 10^6/uL (4.1-5.3); Red Cell Distribution Width 12.3 % (12.1-15.1)
[2022-06-19 13:59] LABS: Alanine Aminotransferase 20 U/L (0-33); Albumin Level 4.1 g/dL (3.5-5.2); Alkaline Phosphatase 122 U/L (35-105); Aspartate Amino Transferase 13 U/L (0-32); Blood Urea Nitrogen 23 mg/dL (6-20); Calcium 9.4 mg/dL (8.5-10.5); Carbon Dioxide 23 mmol/L (22-29); Chloride 96 mmol/L (98-107); Globulin 3.3 g/dL (1.3-4.6); Glomerular Filtration Rate 83.1 mL/min (90-130); Glucose 94 mg/dL (65-115); Osmolality Calculated 281 mOsm/kg (285-295); Sodium 134 mmol/L (136-145); Total Bilirubin 0.2 mg/dL (0.15-1.2); Total Protein 7.4 g/dL (6.6-8.7)
--- NOTE | 2022-06-19 14:03 | W.ED.ABDPA2 ---
HPI - Abdominal Pain General: Chief Complaint: Abdominal Pain Stated Complaint: abd pain Time Seen by Provider: 06/19/22 13:53 Source: patient Mode of arrival: ambulatory History of Present Illness: 31-year-old female presents emergency room with complaint of lower quadrant abdominal pain was seen last week thought to have an appendicitis acutely on CT surgery seen her and did not feel it was acute appendicitis she was discharged home with instruction to return. She did use some laxatives had good return. However she is still having right lower quadrant pain feels like it is actually worsened she denies any fever sweats or chills. She has been very nauseous not been able to keep anything down for the last 2 days. She states her symptoms are worse when she has a bowel movement or urination. She denies any dysuria urgency or frequency however. Localizes most of the pain to the right lower quadrant Onset (ago): week(s) (1) Pain Consistency: constant Location: RLQ Severity: moderate Quality: cramping Radiation: none Exacerbating factors: nothing Relieving factors: nothing Associated Symptoms: Denies anorexia, belching, bloating, change in bowel habits, change in stool character, chills, coffee ground emesis, constipation, GI cramping, diarrhea, dyspepsia, dysuria, excessive flatus, fever(s), heartburn, hematochezia, hematuria, hematemesis, fecal incontinence, loose stools, melena, nausea, poor appetite, syncope and vomiting Review of Systems Const: Denies: fever(s), chills, fatigue or malaise ENMT: Denies: throat pain, ear or mastoid pain, nasal discharge or nasal congestion Card: Denies: chest pain, palpitations, irregular heart rhythm, edema or syncope Resp: Denies: dyspnea, productive cough or non-productive cough GI: Reports: abdominal pain; Denies: nausea, vomiting, hematemesis, coffee ground emesis, heartburn, diarrhea, constipation, bloating, GI cramping, belching, excessive flatus, fecal incontinence, change in bowel habits, change in stool character, hematochezia or melena : Denies: flank pain, dysuria, urinary frequency, urinary urgency or hematuria Skin/Breast: Denies: rash or pruritus PFSH ED PFSH: Medical History Abnormal uterine bleeding (AUB) Anxiety Bipolar disorder, unspecified Depression Family history of psoriasis in father High risk medication use Immunization counseling Inflammatory arthritis Inflammatory back pain 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 Mosher History of laparoscopy 2010-for endometriosis 2015- for Mirena removal 01/17/2017-performed by Dr. Mosher at [facility] History of tubal ligation 12/2015- per Dr. Mosher at [facility] Family History Mother Stroke Hyperlipidemia Family history of thyroid problem Hypertension Father Degenerative disc disease Diabetes Unknown Breast cancer maternal great aunt Grandmother Ovarian cancer maternal Uterine cancer maternal Other Cancer Chronic kidney disease (CKD) Rheumatoid arthritis Denies family history of Lupus Social History Smoking and tobacco status: former smoker Quit status (tobacco): has quit using tobacco Year quit tobacco: 05/02/2019 Alcohol intake: never Substance/Drug Use: never Current gender identity: Female Additional social history: well balanced diet Physical Exam Const: GENERAL APPEARANCE: cooperative and comfortable ORIENTATION/CONSCIOUSNESS: Yes awake, Yes oriented to person, Yes oriented to place and Yes oriented to time HENMT: COMMON NORMALS: normocephalic, atraumatic and hearing grossly normal bilaterally HEAD & SCALP: normocephalic and atraumatic Resp: COMMON NORMALS: normal respiratory effort, No retractions, No use of accessory muscles and clear to auscultation bilaterally AUSCULTATION: clear to auscultation bilaterally Cardio: COMMON NORMALS: regular rate, regular rhythm and No murmurs present (Cardio) RATE: regular rate RHYTHM: regular rhythm GI: COMMON NORMALS: No hepatosplenomegaly present AUSCULTATION: Yes normoactive bowel sounds PALPATION: Yes Tenderness to palpation present (GI) Details: RLQ, No Guarding due to palpation present (GI) and Yes No hepatosplenomegaly present Extremity: COMMON NORMALS: normal to inspection, capillary refill normal, no clubbing, cyanosis or edema, no calf tenderness and no pedal edema Neuro: SENSORIUM/ORIENTATION: Yes oriented to person, Yes oriented to place and Yes oriented to time Skin: COMMON NORMALS: no rashes or lesions noted GENERAL SKIN EXAM: no rashes or lesions noted Course Vital Signs: Vital signs: Vital Signs Temperature 98.3 F 06/19/22 12:51 Pulse Rate 91 06/19/22 16:28 Respiratory Rate 16 06/19/22 16:28 Blood Pressure 113/85 06/19/22 16:28 Pulse Oximetry 99 06/19/22 16:28 Oxygen Delivery Me thod Room Air 06/19/22 16:28 MDM - Abdominal Pain Medical Decision Making Repeat CT showed right adnexal mass ultrasound shows questionable mass uncertain etiology considered possible neoplasm torsion or cystic mass. Discussed Dr. Jimenez. We are consulted as documented as. She contacted radiology and discussed with Dr. Box as Dr. Gaines was no longer in the department. She is recommending admission to the floor and she will evaluate the patient and consider intervention as appropriate. Medical Records I reviewed the patient's medical records. Lab Data I reviewed the patient's lab results. 06/19/22 13:23 06/19/22 13:23 Labs/Radiology: Radiology Impressions Abdomen/Pelvis CT 06/19/22 14:04 IMPRESSION: 1. Abnormal right adnexa, likely enlarged ovary containing cysts. Ovarian torsion is not excluded. Pelvic sonography is recommended. 2. Prior hysterectomy. 3. Prior cholecystectomy. Transvaginal US 06/19/22 14:47 IMPRESSION: Heterogeneous RIGHT adnexal mass. Cystic mass with thick sampson and no significant vascularity. Within one of the cystic collections is a more solid-appearing mass without increased vascularity measuring 2.7 x 2.1 x 3.0 cm. This needs to be further evaluated by SCHOOL SUPERINTENDENT. Differential includes RIGHT adnexal torsion with loss of vascularity. Alternatively fallopian tube pathology should be considered which also may be torsed without increased vascularity. Consider complex hydrosalpinx. Would be helpful to know if the fallopian tubes and RIGHT ovary were removed during the hysterectomy. Complications of endometriosis if that fits the history. Ovarian neoplasm should also be considered. Notified Kris Odell DO at 06/19/2022 3:56 PM. Laboratory Results WBC 14.0 10^3/uL (4.0-10.0) H 06/19/22 13:23 RBC 4.96 10^6/uL (4.1-5.3) 06/19/22 13:23 Hgb 14.7 g/dL (11.5-15.3) 06/19/22 13:23 Hct 44.3 % (37.0-47.0) 06/19/22 13:23 MCV 89.3 fl (81-99) 06/19/22 13:23 MCH 29.6 pg (28.0-34.0) 06/19/22 13:23 MCHC 33.2 g/dL (30.0-36.0) 06/19/22 13:23 RDW 12.3 % (12.1-15.1) 06/19/22 13:23 Plt Count 426 10^3/cmm (130-400) H 06/19/22 13:23 MPV 10.9 fL (7.4-10.4) H 06/19/22 13:23 Neut % (Auto) 78.0 % 06/19/22 13:23 Lymph % (Auto) 13.5 % 06/19/22 13:23 Johnston % (Auto) 6.6 % 06/19/22 13:23 Eos % (Auto) 1.1 % 06/19/22 13:23 Baso % (Auto) 0.4 % 06/19/22 13:23 Neut # (Auto) 10.94 10^3/uL (1.8-7.7) H 06/19/22 13:23 Lymph # (Auto) 1.9 10^3/uL (0.8-4.8) 06/19/22 13:23 Johnston # (Auto) 0.9 10^3/uL (0.2-0.9) 06/19/22 13:23 Eos # (Auto) 0.2 10^3/uL (0.0-0.8) 06/19/22 13:23 Baso # (Auto) 0.1 10^3/uL (0.0-0.1) 06/19/22 13:23 Nucleated RBC % (auto) 0 % 06/19/22 13:23 Nucleated RBCs # 0.0 /100WBC 06/19/22 13:23 Sodium 134 mmol/L (136-145) L 06/19/22 13:23 Potassium 3.0 mmol/L (3.5-5.1) L 06/19/22 13:23 Chloride 96 mmol/L (98-107) L 06/19/22 13:23 Carbon Dioxide 23 mmol/L (22-29) 06/19/22 13:23 Anion Gap 18.0 (5-19) 06/19/22 13:23 BUN 23 mg/dL (6-20) H 06/19/22 13:23 Creatinine 0.8 mg/dL (0.5-0.9) 06/19/22 13:23 GFR Calculation 83.1 mL/min (90-130) L 06/19/22 13:23 Glucose 94 mg/dL (65-115) 06/19/22 13:23 Calculated Osmolality 281 mOsm/kg (285-295) L 06/19/22 13:23 Calcium 9.4 mg/dL (8.5-10.5) 06/19/22 13:23 Total Bilirubin 0.2 mg/dL (0.15-1.2) 06/19/22 13:23 AST 13 U/L (0-32) 06/19/22 13:23 ALT 20 U/L (0-33) 06/19/22 13:23 Alkaline Phosphatase 122 U/L (35-105) H 06/19/22 13:23 Total Protein 7.4 g/dL (6.6-8.7) 06/19/22 13:23 Albumin 4.1 g/dL (3.5-5.2) 06/19/22 13:23 Globulin 3.3 g/dL (1.3-4.6) 06/19/22 13:23 Discharge Plan Discharge Patient Disposition: Admitted As Inpatient Admit Provider: Evelyn Deshpande Clinical Impression: Ovarian mass, right Condition: Stable Coding Level of Care Code ED Senior Animal Trainer for Mark Berg
--- NOTE | 2022-06-19 14:04 | CTR_ITS ---
PROCEDURE INFORMATION: Exam: CT Abdomen And Pelvis Without Contrast Exam date and time: 06/19/2022 2:16 PM Age: 31 years old Clinical indication: Abdominal pain; Localized; Right lower quadrant (rlq); Prior surgery; Surgery type: Gb TECHNIQUE: Imaging protocol: Computed tomography of the abdomen and pelvis without contrast. Radiation optimization: All CT scans at this facility use at least one of these dose optimization techniques: automated exposure control; mA and/or kV adjustment per patient size (includes targeted exams where dose is matched to clinical indication); or iterative reconstruction. REPORTING DATA: Count of CT and Cardiac NM exams in prior 12 months: This patient has received [address] and 0 known cardiac nuclear medicine studies in the 12 months prior to the current study. COMPARISON: CT abdomen pelvis w con* [id number] 06/15/2022 9:41 AM RADIATION DOSE METRICS: Total DLP (mGy-cm): 304.65 FINDINGS: Liver: Normal. No mass. Gallbladder and bile ducts: The gallbladder is surgically absent, with metallic clips in the gallbladder fossa. No extrahepatic biliary ductal dilatation or calculus. Pancreas: Normal. No ductal dilation. Spleen: Normal. No splenomegaly. Adrenal glands: Normal. No mass. Kidneys and ureters: Normal. No hydronephrosis. Stomach and bowel: Unremarkable. No obstruction. No mucosal thickening. Appendix: No evidence of appendicitis. Intraperitoneal space: Mild posterior pelvic peritoneal fluid. No pneumoperitoneum. Vasculature: Unremarkable. No abdominal aortic aneurysm. Lymph nodes: No enlarged lymph nodes. Urinary bladder: The urinary bladder is partially decompressed and somewhat difficult to assess. Reproductive: Right adnexal finding measuring approximally 4.2 x 6.5 x 3.9 cm, containing 2 cystic regions, posteriorly measuring 3.5 cm, anteriorly measuring 2.5 cm. Mild surrounding edema. The right ovary is not separately identified. The left ovary is unremarkable. The uterus is status post hysterectomy. Bones/joints: Unremarkable. No acute fracture. Soft tissues: Unremarkable. CT/CT abdomen pelvis wo con [id number] IMPRESSION: 1. Abnormal right adnexa, likely enlarged ovary containing cysts. Ovarian torsion is not excluded. Pelvic sonography is recommended. 2. Prior hysterectomy. 3. Prior cholecystectomy.
--- NOTE | 2022-06-19 14:47 | US_ITS ---
WS: [id number] US transvaginal [id number] HISTORY: abnormal ovary on CT, pelvic pain COMPARISON: CT 06/20/2019. Status post hysterectomy. No midline mass. In the RIGHT adnexa is a cystic structure which is lobulated and thickened walled. There is no signif icant increased vascularity. The entire collection extends over a length of 6.7 cm x 4.6 x 3.6 cm. Cy stic component centrally. Within one of the lobulated cystic components is a soft tissue mass without increased vascularity measuring 2.7 x 2.1 x 3.0 cm. No separate ovary is identified. There is no adj acent free fluid. No LEFT adnexal masses are identified. US/US transvaginal [id number] IMPRESSION: Heterogeneous RIGHT adnexal mass. Cystic mass with thick sampson and no significa nt vascularity. Within one of the cystic collections is a more solid-appearing mass without increased vascularity measuring 2.7 x 2.1 x 3.0 cm. This needs to be further evaluated by ANGLE SHEAR SET UP OPERATOR. Differential includes RIGHT adnexal torsion with l oss of vascularity. Alternatively fallopian tube pathology should be considered which also may be torsed without increased vascularity. Consider complex hydro salpinx. Would be helpful to know if the fallopian tubes and RIGHT ovary were r emoved during the hysterectomy. Complications of endometriosis if that fits the history. Ovarian neoplasm should also be considered. Notified Kris Odell DO at 06/19/2022 3:56 PM.
[2022-06-19] MEDS: ondansetron 2 mg/ML SDV 2 mL 4 MG IVP (15:38)
[2022-06-19 15:39] VITALS: RESP 14; O2SAT 95
[2022-06-19] MEDS: morphine 4 mg/mL SDV 1 mL IVP (15:39)
[2022-06-19 16:28] VITALS: BP 113/85; PULSE 91; RESP 16; O2SAT 99
[2022-06-19 18:15] VITALS: BP 110/78; PULSE 93; RESP 15; TEMP 36.9; O2SAT 99
[2022-06-19] MEDS: HYDROcodone-acetaminophen 5-325 mg Tablet PO (18:32)
[2022-06-19] MEDS: dextrose 5%-lactated ringers 1,000 ML 175 ML IV (18:32)
--- NOTE | 2022-06-19 19:22 | PM.OBGYHP ---
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 Mary Nesbitt is a 31 year old female h/o vaginal hysterectomy and left oophorectomy May 02, 2019 for endometriosis and chronic pelvic pain patient was well until June 15, 2022 when she suddenly began to have right lower quadrant pain states pain was very severe was seen in ER, had CT scan done was discharge with dx of constipation states pain continued over the weekend along with vomiting, unable to keep anything down no fever, chills, dysuria still has right lower quadrant pain Medications/Allergies Home Medications Medication Instructions Recorded Confirmed Last Taken Type topiramate 100 mg tablet (Topamax) 300 mg PO DAILY 11/10/20 06/19/22 11/11/20 History tramadol 50 mg tablet 100 mg PO Q4H PRN Pain 01/17/22 06/19/22 Unknown History gabapentin 300 mg capsule 600 mg PO QID 30 days #240 caps 05/16/22 06/19/22 Unknown Rx leflunomide 10 mg tablet 10 mg PO DAILY #30 tabs 05/30/22 06/19/22 Unknown Rx cholecalciferol (vitamin D3) 25 50 mcg PO DAILY 06/15/22 06/19/22 Unknown History mcg (1,000 unit) capsule (Vitamin D3) ondansetron 4 mg disintegrating 4 mg PO Q8H PRN nausea and 06/15/22 06/19/22 Unknown Rx tablet vomiting #14 tabs cetirizine 10 mg tablet 10 mg PO DAILY 06/19/22 06/19/22 Unknown History citalopram 10 mg tablet 10 mg PO DAILY 06/19/22 06/19/22 Unknown History Allergies Allergy/AdvReac Type Severity Reaction Status Date / Time Latex, Natural Rubber Allergy Intermediate rash, hives Verified 06/19/22 16:29 amoxicillin Allergy ALGY-Hives Verified 06/19/22 16:29 methotrexate AdvReac Intermediate migraines, Verified 06/19/22 16:29 N/V 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 Mosher History of hysterectomy History of laparoscopy 2010-for endometriosis 2015- for Mirena removal 01/17/2017-performed by Dr. Mosher at [facility] History of tubal ligation 12/2015- per Dr. Mosher at [facility] Family History Mother Stroke Hyperlipidemia Family history of thyroid problem Hypertension Father Degenerative disc disease Diabetes Unknown Breast cancer maternal great aunt Grandmother Ovarian cancer maternal Uterine cancer maternal Other Cancer Chronic kidney disease (CKD) Rheumatoid arthritis Denies family history of Lupus Social History Smoking and tobacco status: former smoker Quit status (tobacco): has quit using tobacco Year quit tobacco: 05/02/2019 Alcohol intake: never Substance/Drug Use: never Current gender identity: Female Additional social history: well balanced diet Other Female Reproductive History: Hx Age of Menarche: 10 Duration of menses: 3-5 days Cycle Length: 28 days Menstrual flow: normal/abnormal: light History History History 5 Term 3 0 Miscarriages/Ectopic 2 Living Children 3 Past Pregnancies Del. Date GA/Weeks Outcome Route Wt Inf Gender Labor Lgth Comp. Anesthesia Location Unknown spontaneous Unknown spontaneous 06/25/07 32 live - Vaginal 5 lb 6 oz Female [address] [facility] 08/12/08 34 live - Vaginal 6 lb 7.5 oz Female [address] [facility] 03/29/10 41 live - full term Vaginal 6 lb 11 oz Female [address] [facility] Delivery Date: Last Updated by: Kerri Yin RN 2013- at 3.5 months Delivery Date: Last Updated by: Kerri Yin RN - 2015 at 4 months Delivery Date: 06/25/07 Last Updated by: WINDY Dye Dr. Delivery Date: 08/12/08 Last Updated by: WINDY Dye Dr. Delivery Date: 03/29/10 Last Updated by: Kerri Humphrey, RN Dr. Obdulio Vitals/I&O/Wt Last Vital Signs Temp 98.4 F 06/19/22 18:15 Pulse 93 06/19/22 18:15 Resp 15 06/19/22 18:15 BP 110/78 06/19/22 18:15 Pulse Ox 99 06/19/22 18:15 O2 Del Method Room Air 06/19/22 18:15 Weight last 48 hrs Weight 116 lb Physical Exam Narrative: patient appears comfortable awake, alert, pleasant, appropriate T 98.3, VS normal Abd: soft, nondistended mild tenderness to palpation RLQ no rebound Data 06/19/22 13:23 06/19/22 13:23 Micro: UA normal Results SUPERINTENDENT QUARRY Ultrasound pelvic sono today - 6 cm complex right adnexal cyst A&P Assessment and plan (1) Pelvic pain: patient with 4-day history of RLQ pain and vomiting Right adnexal complex cyst on CT and pelvic sono PEx does not indicate an acute abdomen however, with patient's c/o severe pain and vomiting, consider laparoscopy, possible salpingo-oophorectomy, possible exploratory laparotomy procedures and risks explained to patient, including risks of infection, bleeding, injury to internal organs, anesthesia, blood transfusions patient understands and want to proceed plan NPO after midnight Attestations Medical Necessity Statement*: patient with 4-day history of RLQ pain and vomiting; 6 cm complex right adnexal cyst Coding Level of Care Code Acute Code for Chg Fwd Diagnoses Pelvic pain R10.2 Time Spent (min) 60
[2022-06-19] MEDS: potassium chloride premix 100 ML 25 MEQ IV (21:38)
[2022-06-19 21:46] VITALS: BP 111/74; PULSE 104; RESP 18; TEMP 36.8; O2SAT 97
[2022-06-19 22:25] LABS: Add Urine Microscopic? NO; Charge for UA Resulting for Rev
[2022-06-19 22:33] LABS: Protein Urine Neg (Negative); Urine Appearance Clear (CLEAR); Urine Color Yellow (Yellow); pH Urine 6 (5-7)
[2022-06-19 22:34] LABS: Bilirubin Urine Neg (Negative); Blood Urine Neg (Negative); Glucose Urine UA Norm (Normal); Ketones Urine Negative (Negative); Leukocyte Esterase Urine Negative (Negative); Nitrate Urine Negative (Negative); Urobilinogen Urine Norm (Negative)
[2022-06-20] VITALS (10 sets, daily range): BP systolic 105–148; BP diastolic 69–106; PULSE 81–112; RESP 16–20; TEMP 36.3–37.2; O2SAT 96–100
[2022-06-20] MEDS: HYDROcodone-acetaminophen 5-325 mg Tablet PO ×3 (00:04→12:21)
[2022-06-20] MEDS: dextrose 5%-lactated ringers 1,000 ML 175 ML IV ×2 (01:03→06:44)
[2022-06-20] MEDS: gabapentin 300 mg Capsule PO (07:56)
[2022-06-20] MEDS: topiramate 100 mg Tablet PO (07:56)
--- NOTE | 2022-06-20 08:00 | PC.NURSE ---
Pt taken to surgery via ravinash.
[2022-06-20] MEDS: scopolamine 1.5 Patch 1 PATCH TRANSDERMA (08:44)
[2022-06-20] MEDS: phenazopyridine 100 mg Tablet 200 MG PO (08:45)
[2022-06-20] MEDS: CELEcoxib 200 mg Capsule 400 MG PO (08:45)
[2022-06-20] MEDS: acetaminophen 1,000 MG/100 ML PIGGYBACK 400 MG IV (08:46)
--- NOTE | 2022-06-20 09:06 | W.PM.OPSUD ---
Surgery/Procedure H&P Update DATE OF PROCEDURE: June 20, 2022 DATE H&P PERFORMED: 06/19/22 H&P UPDATE INFORMATION: I have reviewed H&P completed within last 30 days, I have examined patient prior to procedure and No changes to prior documentation PREOP DIAGNOSIS: right adnexal mass PLANNED PROCEDURE: Operation Date: 06/20/22 10:45 Proposed Procedures p Laparoscopy, removal of mass(Not Applicable) - Evelyn Deshpande MD s Possible Laparoscopic Right Salpingo Oophorectomy(Right) - Evelyn Deshpande MD Related Problem List Diagnoses (1) Ovarian mass, right:
--- NOTE | 2022-06-20 09:31 | ANES.PREANE2 ---
Pre-Anesthetic Assessment Height/Weight: Height 1.5 m Weight 52.617 kg Temp Pulse Resp BP Pulse Ox O2 Del Method 97.7 F 89 16 105/69 98 Room Air 06/20/22 06:24 06/20/22 06:24 06/20/22 06:24 06/20/22 06:24 06/20/22 06:24 06/20/22 06:24 Preop Diagnosis: right adnexal mass Operation Date: 06/20/22 10:45 Proposed Procedures p Laparoscopy, removal of mass(Not Applicable) - Evelyn Deshpande MD s Possible Laparoscopic Right Salpingo Oophorectomy(Right) - Evelyn Deshpande MD Familial anesthetic complications: None Was Beta Omar taken within 24 hours: N/A Was Clonidine taken within 24 hours: N/A Last intake: > 8hrs Social Tobacco and No alcohol Exam alert, oriented x 3, clear to auscultation bilaterally and regular rate & rhythm Airway Mallampati: Class I Dentition: full CV/HEM Hypertension Musc/skel Rheumatoid Arthritis Anesthetic Plan ASA status: 2 Anesthesia: General Risk of > 500 ml blood loss (7ml/kg in children): No Medications/Allergies Home Medications Medication Instructions Recorded Confirmed Last Taken Type topiramate 100 mg tablet (Topamax) 300 mg PO DAILY 11/10/20 06/19/22 11/11/20 History tramadol 50 mg tablet 100 mg PO Q4H PRN Pain 01/17/22 06/19/22 Unknown History gabapentin 300 mg capsule 600 mg PO QID 30 days #240 caps 05/16/22 06/19/22 Unknown Rx leflunomide 10 mg tablet 10 mg PO DAILY #30 tabs 05/30/22 06/19/22 Unknown Rx cholecalciferol (vitamin D3) 25 50 mcg PO DAILY 06/15/22 06/19/22 Unknown History mcg (1,000 unit) capsule (Vitamin D3) ondansetron 4 mg disintegrating 4 mg PO Q8H PRN nausea and 06/15/22 06/19/22 Unknown Rx tablet vomiting #14 tabs cetirizine 10 mg tablet 10 mg PO DAILY 06/19/22 06/19/22 Unknown History citalopram 10 mg tablet 10 mg PO DAILY 06/19/22 06/19/22 Unknown History Allergies Allergy/AdvReac Type Severity Reaction Status Date / Time Latex, Natural Rubber Allergy Intermediate rash, hives Verified 06/20/22 08:17 amoxicillin Allergy ALGY-Hives Verified 06/20/22 08:17 methotrexate AdvReac Intermediate migraines, Verified 06/20/22 08:17 N/V Current Medications Generic Name Dose Route Start Last Admin Trade Name Freq PRN Reason Stop Dose Admin Hydrocodone Bitart/Acetaminophen 1 - 2 tab 06/19/22 18:15 06/20/22 06:22 Hydrocodone-Acetaminophen 5-325 Mg Tablet PO 2 tab Q6H PRN Administration MODERATE TO SEVERE PAIN Dextrose/Lactated Ringer's 1,000 mls @ 175 mls/hr 06/19/22 18:15 06/20/22 08:00 Dextrose 5%-Lactated Ringers IV 0 mls/hr .[id number] BLAYNE Infusion Topiramate 100 mg 06/20/22 09:00 06/20/22 07:56 Topiramate 100 Mg Tablet PO 100 mg DAILY BLAYNE Administration [facility] Anesthesia Medical History (Updated 06/20/22 @ 09:13 by Evelyn Deshpande MD) Abnormal Papanicolaou smear of cervix with positive human papilloma virus (HPV) test Abnormal uterine bleeding (AUB) Acute abscess of female pelvis Anxiety Bipolar disorder, unspecified Endometriosis determined by laparoscopy Family history of psoriasis in father High risk medication use Hx of migraines Inflammatory arthritis 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 Mosher History of cholecystectomy History of hysterectomy History of laparoscopy 2010-for endometriosis 2015- for Mirena removal 01/17/2017-performed by Dr. Mosher at [facility] History of tubal ligation 12/2015- per Dr. Mosher at [facility] Family History Mother Stroke Hyperlipidemia Family history of thyroid problem Hypertension Father Degenerative disc disease Diabetes Unknown Breast cancer maternal great aunt Grandmother Ovarian cancer maternal Uterine cancer maternal Other Cancer Chronic kidney disease (CKD) Rheumatoid arthritis Denies family history of Lupus Social History Smoking and tobacco status: former smoker Quit status (tobacco): has quit using tobacco Year quit tobacco: 05/02/2019 Alcohol intake: never Substance/Drug Use: never Current gender identity: Female Additional social history: well balanced diet Data Anesthesia 06/19/22 13:23 06/19/22 13:23 Short CBC 06/19/22 Range/Units 13:23 WBC 14.0 H (4.0-10.0) 10^3/uL Hgb 14.7 (11.5-15.3) g/dL Hct 44.3 (37.0-47.0) % MCV 89.3 (81-99) fl Plt Count 426 H (130-400) 10^3/cmm Neut % (Auto) 78.0 % Neut # (Auto) 10.94 H (1.8-7.7) 10^3/uL BMP 06/19/22 13:23 Sodium 134 L Potassium 3.0 L Chloride 96 L Carbon Dioxide 23 BUN 23 H Creatinine 0.8 Glucose 94 Calcium 9.4 Liver Function 06/19/22 Range/Units 13:23 Total Bilirubin 0.2 (0.15-1.2) mg/dL AST 13 (0-32) U/L ALT 20 (0-33) U/L Alkaline Phosphatase 122 H (35-105) U/L Albumin 4.1 (3.5-5.2) g/dL Urine 06/19/22 Range/Units 22:15 Urine Color Yellow (Yellow) Urine Appearance Clear (CLEAR) Urine pH 6 (5-7) Ur Specific [place] 1.020 (1.005-1.030) Urine Protein Neg (Negative) Urine Glucose (UA) Norm (Normal) Urine Ketones Negative (Negative) Urine Nitrate Negative (Negative) Urine Bilirubin Neg (Negative) Ur Leukocyte Esterase Negative (Negative) Cardiac Studies: No Data to Display
[2022-06-20] MEDS: ceFAZolin 2,000 MG in sodium chloride 0.9% (plus) 50 ML 100 MG IV (09:44)
--- NOTE | 2022-06-20 10:52 | PM.OP ---
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 peritoneum is stained purple Condition: stable Disposition: PACU Procedure: The patient was taken to the operating room where general anesthesia was administered and found to be adequate. She was prepped and draped in the normal sterile fashion in the dorsal supine position. A garner catheter was placed and then a sponge stick. Attention was turned to the abdomen after the gloves were changed. A 5 mm supraumbilical incision was made and carried down to the underlying layer of fascia. Using the 5 mm trocar and the scope the trocar was placed under direct visualization. The pelvis was visualized and found to have a large right ovary. 2 additional 5 mm ports were placed. One on the right and 1 on the left lower abdomen. These were placed under direct visualization. Some adhesions were removed from the right adnexa. The ovary was lifted from the pelvis and then it was apparent that there was an old torsion. Using the laparoscopic cautery, I clamped the infundibulopelvic ligament, just inferior to the ovary. The ureter was visualized well below the ovary. The left lower incision was extended to 12 mm. A 12 mm port was placed. The endobag was placed through the 12 mm port. The ovary was placed into the endo bag. The pelvis was copiously irrigated. The operative sites were hemostatic. The endobag was brought through the 12 mm trocar site. I grasped the fascia with an allis clamp. The fascia was reapproximated. The trochars were removed and the abdomen desufflated. The sponge stick was removed as well as the Garner catheter. Incisions were closed using 3-0 Vicryl and skin glue. The patient tolerated the procedure well. Sponge lap and needle counts were correct x3. Taken to the recovery room in stable condition.
[2022-06-20] MEDS: fentaNYL 50 mcg/mL INJ 2mL IVP (11:10)
--- NOTE | 2022-06-20 11:13 | PM.DCS ---
Discharge Providers Date of Admission: 06/19/22 17:15 Date of Discharge: June 20, 2022 Attending Provider at Admission: Evelyn Deshpande MD Attending Provider at Discharge: Evelyn Deshpande MD Primary Care Provider: Joaquin Mak MD Diagnoses at Discharge Discharge Diagnosis (1) Ovarian mass, right: Status: Acute Reason for Visit Reason for Visit: abd pain Hospital Course Hospital Course The patient was admitted for right ovarian mass. She underwent surgery and the mass was removed. It was found to be an ovarian torsion. She did well postoperatively and was ready for discharge after surgery. Physical Exam Urinary Catheter Management: Beltran: Cath Placed During This Visit: yes, but has since been removed by the nurse Urinary Catheter Date of Insertion: 06/20/22 Urinary Catheter Time of Insertion: 10:58 Date Urinary Catheter Removed: 06/20/22 Time Urinary Catheter Discontinued: 10:48 Discharge Data Studies Completed and Pending Completed Studies During Hospitalization Category Date Time Status CT abdomen pelvis wo con [id number] Stat Cat Scan 06/19/22 14:04 Completed US transvaginal [id number] Stat Ultrasound 06/19/22 14:47 Completed Pending at discharge Category Date Time Status ES surgery / GI images Routine Exams 06/20/22 10:24 Ordered Pathology: Surgical [PTH] Routine Pth 06/20/22 10:43 Ordered Radiology Impressions Abdomen/Pelvis CT 06/19/22 14:04 IMPRESSION: 1. Abnormal right adnexa, likely enlarged ovary containing cysts. Ovarian torsion is not excluded. Pelvic sonography is recommended. 2. Prior hysterectomy. 3. Prior cholecystectomy. Transvaginal US 06/19/22 14:47 IMPRESSION: Heterogeneous RIGHT adnexal mass. Cystic mass with thick sampson and no significant vascularity. Within one of the cystic collections is a more solid-appearing mass without increased vascularity measuring 2.7 x 2.1 x 3.0 cm. This needs to be further evaluated by FISH CUTTING MACHINE OPERATOR. Differential includes RIGHT adnexal torsion with loss of vascularity. Alternatively fallopian tube pathology should be considered which also may be torsed without increased vascularity. Consider complex hydrosalpinx. Would be helpful to know if the fallopian tubes and RIGHT ovary were removed during the hysterectomy. Complications of endometriosis if that fits the history. Ovarian neoplasm should also be considered. Notified Kris Odell DO at 06/19/2022 3:56 PM. Laboratory Results WBC 14.0 10^3/uL (4.0-10.0) H 06/19/22 13:23 RBC 4.96 10^6/uL (4.1-5.3) 06/19/22 13:23 Hgb 14.7 g/dL (11.5-15.3) 06/19/22 13:23 Hct 44.3 % (37.0-47.0) 06/19/22 13:23 MCV 89.3 fl (81-99) 06/19/22 13:23 MCH 29.6 pg (28.0-34.0) 06/19/22 13:23 MCHC 33.2 g/dL (30.0-36.0) 06/19/22 13:23 RDW 12.3 % (12.1-15.1) 06/19/22 13:23 Plt Count 426 10^3/cmm (130-400) H 06/19/22 13:23 MPV 10.9 fL (7.4-10.4) H 06/19/22 13:23 Neut % (Auto) 78.0 % 06/19/22 13:23 Lymph % (Auto) 13.5 % 06/19/22 13:23 Rankin % (Auto) 6.6 % 06/19/22 13:23 Eos % (Auto) 1.1 % 06/19/22 13:23 Baso % (Auto) 0.4 % 06/19/22 13:23 Neut # (Auto) 10.94 10^3/uL (1.8-7.7) H 06/19/22 13:23 Lymph # (Auto) 1.9 10^3/uL (0.8-4.8) 06/19/22 13:23 Rankin # (Auto) 0.9 10^3/uL (0.2-0.9) 06/19/22 13:23 Eos # (Auto) 0.2 10^3/uL (0.0-0.8) 06/19/22 13:23 Baso # (Auto) 0.1 10^3/uL (0.0-0.1) 06/19/22 13:23 Nucleated RBC % (auto) 0 % 06/19/22 13:23 Nucleated RBCs # 0.0 /100WBC 06/19/22 13:23 Sodium 134 mmol/L (136-145) L 06/19/22 13:23 Potassium 3.0 mmol/L (3.5-5.1) L 06/19/22 13:23 Chloride 96 mmol/L (98-107) L 06/19/22 13:23 Carbon Dioxide 23 mmol/L (22-29) 06/19/22 13:23 Anion Gap 18.0 (5-19) 06/19/22 13:23 BUN 23 mg/dL (6-20) H 06/19/22 13:23 Creatinine 0.8 mg/dL (0.5-0.9) 06/19/22 13:23 GFR Calculation 83.1 mL/min (90-130) L 06/19/22 13:23 Glucose 94 mg/dL (65-115) 06/19/22 13:23 Calculated Osmolality 281 mOsm/kg (285-295) L 06/19/22 13:23 Calcium 9.4 mg/dL (8.5-10.5) 06/19/22 13:23 Total Bilirubin 0.2 mg/dL (0.15-1.2) 06/19/22 13:23 AST 13 U/L (0-32) 06/19/22 13:23 ALT 20 U/L (0-33) 06/19/22 13:23 Alkaline Phosphatase 122 U/L (35-105) H 06/19/22 13:23 Total Protein 7.4 g/dL (6.6-8.7) 06/19/22 13:23 Albumin 4.1 g/dL (3.5-5.2) 06/19/22 13:23 Globulin 3.3 g/dL (1.3-4.6) 06/19/22 13:23 Urine Color Yellow (Yellow) 06/19/22 22:15 Urine Appearance Clear (CLEAR) 06/19/22 22:15 Urine pH 6 (5-7) 06/19/22 22:15 Ur Specific [place] 1.020 (1.005-1.030) 06/19/22 22:15 Urine Protein Neg (Negative) 06/19/22 22:15 Urine Glucose (UA) Norm (Normal) 06/19/22 22:15 Urine Ketones Negative (Negative) 06/19/22 22:15 Urine Blood Neg (Negative) 06/19/22 22:15 Urine Nitrate Negative (Negative) 06/19/22 22:15 Urine Bilirubin Neg (Negative) 06/19/22 22:15 Urine Urobilinogen Norm mg/dL (Negative) 06/19/22 22:15 Ur Leukocyte Esterase Negative (Negative) 06/19/22 22:15 Vitals Last Vital Signs Temp 97.4 F L 06/20/22 11:01 Pulse 112 H 06/20/22 11:06 Resp 18 06/20/22 11:06 BP 135/106 06/20/22 11:06 Pulse Ox 100 06/20/22 11:06 O2 Del Method Room Air 06/20/22 11:06 Discharge Plan Discharge Patient Disposition: Home Condition: Stable Prescriptions: New hydrocodone-acetaminophen 5-325 mg Tablet 1 tab PO Q4H PRN (Reason: Moderate To Severe Pain) Qty: 30 0RF ibuprofen 800 mg tablet 800 mg PO Q8H Qty: 30 0RF Colace 100 mg capsule 100 mg PO BID Qty: 60 0RF Continued tramadol 50 mg tablet 100 mg PO Q4H PRN (Reason: Pain) gabapentin 300 mg capsule 600 mg PO QID 30 Days Qty: 240 3RF leflunomide 10 mg tablet 10 mg PO DAILY Qty: 30 3RF topiramate [Topamax] 100 mg Tablet 300 mg PO DAILY cholecalciferol (vitamin D3) [Vitamin D3] 25 mcg (1,000 unit) Capsule 50 mcg PO DAILY ondansetron 4 mg tablet,disintegrating 4 mg PO Q8H PRN (Reason: nausea and vomiting) Qty: 14 0RF cetirizine 10 mg tablet 10 mg PO DAILY citalopram 10 mg tablet 10 mg PO DAILY Discharge Orders: Discharge Order (Routine); Ordered 06/20/22 Ordered By: Evelyn Deshpande Referrals: Joaquin Mak MD [Primary Care Provider] - Patient Instructions: Opioid Safety Discharge Attestations Time Spent in Discharge Care*: less than 30 min Quality Metrics Clinical Quality Measures [ No reported AMI, CVA or VTE this stay] Coding Level of Care Code Acute Code for Chg Fwd Diagnoses Ovarian mass, right N83.8
--- NOTE | 2022-06-20 13:58 | ANE.PACU2 ---
Inpatient post-anesthesia follow up: Airway intact: Yes Vital signs: Temperature 98.0 F Pulse Rate 92 Respiratory Rate 16 Blood Pressure 115/78 Pulse Oximetry 96 Oxygen Delivery Me thod Room Air Oxygen Flow Rate Fraction of Inspir ed Oxygen Hydration adequate: Yes Nausea and vomiting: No Pain level: 1 Mental status: Baseline
== END 2022-06-20 12:41 | disposition home or self-care (01) ==
LOC: ER 17:06 → OBGYN 17:17
PROVIDERS: Physician Assistant; Admitting Provider Obstetrics & Gynecology; Emergency Provider Family Medicine; PCP Family Medicine; Visit Provider Obstetrics & Gynecology
PROC: (CPT 49320; principal; 2022-06-20 10:25)
PROC: (CPT 58661; 2022-06-20 10:25)
DX: N83.201 Unspecified ovarian cyst, right side (principal); Z87.891 Personal history of nicotine dependence; Z90.710 Acquired absence of both cervix and uterus; Z90.721 Acquired absence of ovaries, unilateral
CPT/HCPCS: 58661; 36415; 51702; 74176; 76830; 80053; 81003; 85025; 88305; 96374; 96375; 99285; G0378; J0131; J0690; J1100; J1885; J2270; J2405; J2704; J3010; J3480; J3490; J7121

== ENCOUNTER 2022-09-11 18:40 | Emergency (ER) | payer MEDICAID, SELFPAY ==
[2022-09-11 18:55] VITALS: BP 136/97; PULSE 101; RESP 16; TEMP 36.6; O2SAT 95; BMI 22.6
[2022-09-11] MEDS: tetanus-dipt-pertussis 0.5 mL SDV IM (19:45)
[2022-09-11] MEDS: HYDROcodone-acetaminophen 5-325 mg Tablet 1 TAB PO (19:45)
[2022-09-11] MEDS: doxycycline 100 mg Tablet PO (21:44)
[2022-09-11] MEDS: clindamycin 150 mg Capsule 300 MG PO (21:44)
--- NOTE | 2022-09-12 00:48 | W.ED.ANIMALB ---
HPI - Animal Bite General: Chief Complaint: Animal Bite Stated Complaint: dog bite/left leg Time Seen by Provider: 09/11/22 19:02 Source: patient Mode of arrival: ambulatory Limitations: no limitations History of Present Illness: Patient presents to the emergency department today for evaluation treatment of injury sustained after being bitten by a dog. Patient states that she was outside and a dog appearing to be that of a [place], approached them. Patient was bit in the left medial calf region. Patient states that the dog appeared to be unaccompanied-no signs of owners. Patient is unsure of her last tetanus immunization Review of Systems General: Reports: 10 or more systems reviewed and unremarkable except in HPI and below PFSH ED PFSH: Medical History Abnormal Papanicolaou smear of cervix with positive human papilloma virus (HPV) test Abnormal uterine bleeding (AUB) Acute abscess of female pelvis Anxiety Bipolar disorder, unspecified Endometriosis determined by laparoscopy Family history of psoriasis in father High risk medication use Hx of migraines Inflammatory arthritis Inflammatory back pain Other terminal carman (current) drug therapy Ovarian mass, right Psychiatric care Seizures Surgical History H/O removal of cyst [address] Mosher History of cholecystectomy History of hysterectomy History of laparoscopy 2010-for endometriosis 2015- for Mirena removal 01/17/2017-performed by Dr. Mosher at [facility] History of tubal ligation 12/2015- per Dr. Mosher at [facility] Family History Mother Stroke Hyperlipidemia Family history of thyroid problem Hypertension Father Degenerative disc disease Diabetes Unknown Breast cancer maternal great aunt Grandmother Ovarian cancer maternal Uterine cancer maternal Other Cancer Chronic kidney disease (CKD) Rheumatoid arthritis Denies family history of Lupus Physical Exam Const: COMMON NORMALS: patient oriented x3 and alert OTHER: Patient is in obvious discomfort and appears quite anxious. But, she is pleasant and answers her own history. HENMT: COMMON NORMALS: normocephalic, atraumatic and hearing grossly normal bilaterally HEAD & SCALP: normocephalic and atraumatic Eye: COMMON NORMALS: Equal, round and reactive pupils present, EOMs intact bilaterally and conjunctivae normal CONJUNCTIVA: Yes conjunctivae normal PUPIL: Yes Equal, round and reactive pupils present Neck/C-Spine: COMMON NORMALS: full ROM and no JVD Lymph: LYMPHATIC: no lymphadenopathy noted Resp: COMMON NORMALS: normal respiratory effort, No retractions and No use of accessory muscles Cardio: COMMON NORMALS: no JVD and regular rate RATE: regular rate Extremity: NARRATIVE EXTREMITY EXAM: Patient is independently ambulatory and weightbearing. She is tender and sore to her left calf. Neuro: COMMON NORMALS: patient oriented x3 SENSORIUM/ORIENTATION: Yes alert Psych: COMMON NORMALS: mental status grossly normal, Normal thought process present, cooperative and normal affect THOUGHT PROCESS: Normal thought process present Skin: COMMON NORMALS: no rashes or lesions noted and turgor normal NARRATIVE SKIN EXAM: Patient has 2 lacerations to the left mid, lateral calf. Subcutaneous fat tissue exposed. Bleeding is controlled. Superior laceration is approximately 4 cm in length and approximately 2 cm wound edge separation in the middle. More inferior laceration is approximately 2 cm in length with 1 cm wound edge separation in the middle. There is surrounding bruising. GENERAL SKIN EXAM: no rashes or lesions noted and turgor normal Procedures Laceration Laceration 1: Site: lower extremity Side (If applicable): left Size (cm): 4 Description: linear Depth: simple, single layer Local Anesthetic: lidocaine 1% Amount of anesthesia used (mL): 6 Pre-repair: wound explored and irrigated extensively (Flushed with 200 cc sterile saline and Betadine) Skin layer closed with: nylon Size (cm): 4-0 Number of sutures: 4 Technique: simple, interrupted and other (Loose reapproximation of the wound) Laceration 2: Site: lower extremity Side (If applicable): left Size (cm): 2 Description: linear Depth: simple, single layer Local Anesthetic: lidocaine 1% Amount of anesthesia used (mL): 3 Pre-repair: wound explored and irrigated extensively (Syringe flush with 200 cc sterile saline and Betadine) Skin layer closed with: nylon Size (cm): 4-0 Number of sutures: 2 Technique: simple, interrupted and other (Loose reapproximation of wound edges) Course Vital Signs: Vital signs: Vital Signs Temperature 97.9 F 09/11/22 18:55 Pulse Rate 101 H 09/11/22 18:55 Respiratory Rate 16 09/11/22 18:55 Blood Pressure 136/97 09/11/22 18:55 Pulse Oximetry 95 09/11/22 18:55 Oxygen Delivery Me thod Room Air 09/11/22 18:55 MDM - Animal Bite Medical Decision Making Patient presented to the emergency department today for injuries sustained after being bit by dog. Discussed with patient we typically leave these wounds open however, there is somewhat gaping of the wound we discussed loose reapproximation of the wound edges with suturing. Patient's tetanus was updated today. We discussed rabies prophylaxis. Explained that since the dog is a stray without ability to confirm immunization status of the animal, I did encourage her to consider obtaining the rabies immunizations however, patient declines. Patient's wounds were irrigated using syringe flushes of sterile saline and Betadine. Patient received sutures to better approximate the wound edges but, as it was done loosely, wound was not closed tight. Patient has a penicillin allergy so she is treated with clindamycin and doxycycline for dog bite coverage. Went over wound care and suture care with the patient. Patient is to have sutures removed in 10 days. Discussed signs and symptoms of acute worsening in condition for which patient needs to be seen and reevaluated. Patient verbalized understanding and agreement to treatment plan. Differential Diagnosis Likely bite by animal, dog bite and rabies contact Discharge Plan Discharge Patient Disposition: Home Clinical Impression: Bite by animal, Dog bite, Laceration of leg not thigh, left Condition: Stable Prescriptions: New doxycycline hyclate 100 mg tablet 100 mg PO BID 10 Days Qty: 20 0RF clindamycin HCl 300 mg capsule 300 mg PO QID 10 Days Qty: 40 0RF No Action sulfasalazine 500 mg tablet 0.5 g PO BID Qty: 60 3RF Rx Instructions: Take 1 tab daily x1wk then stay on 1 tab twice daily.... give with food (meal/snack) leflunomide 20 mg tablet 20 mg PO DAILY Qty: 30 3RF cetirizine [Zyrtec] 10 mg tablet 10 mg PO DAILY Qty: 30 0RF clarithromycin 500 mg tablet 500 mg PO Q12H 10 Days Qty: 20 0RF fluticasone propionate [Flonase Allergy Relief] 50 mcg/actuation spray,suspension 2 spray intranasal DAILY Qty: 16 0RF Rx Instructions: administer into each nostril tramadol 50 mg tablet 100 mg PO Q4H PRN (Reason: Pain) gabapentin 300 mg capsule 600 mg PO QID 30 Days Qty: 240 3RF topiramate [Topamax] 100 mg Tablet 300 mg PO DAILY cholecalciferol (vitamin D3) [Vitamin D3] 25 mcg (1,000 unit) Capsule 50 mcg PO DAILY ondansetron 4 mg tablet,disintegrating 4 mg PO Q8H PRN (Reason: nausea and vomiting) Qty: 14 0RF cetirizine 10 mg tablet 10 mg PO DAILY citalopram 10 mg tablet 10 mg PO DAILY hydrocodone-acetaminophen 5-325 mg Tablet 1 tab PO Q4H PRN (Reason: Moderate To Severe Pain) Qty: 30 0RF ibuprofen 800 mg tablet 800 mg PO Q8H Qty: 30 0RF Colace 100 mg capsule 100 mg PO BID Qty: 60 0RF Discharge Orders: Discharge ED (Routine); Ordered 09/11/22 Ordered By: Britni Chapman Referrals: Joaquin Mak MD [Primary Care Provider] - Discharge Diet: Usual diet Discharge Activity: Increase activity as tolerated Patient Instructions: Animal Bite (ED), Laceration (ED) Activity Restrictions/Additional Instructions: We have updated your tetanus immunization today. We have also started you on prophylactic antibiotics to prevent general bacterial infection secondary to being bitten by a dog. Unfortunately, you did receive 2 very deep and widely lacerations requiring some reapproximation to promote healing. However, as we discussed, you cannot completely close a dog bite wound as it significantly increases the concern for infection. I want you to wash the wound twice a day with warm water and a mild soap. I encourage you to keep them covered and wrapped to prevent getting them wet or soiled. I highly suspect she will be more tender and sore over the next 48 hours with increased swelling and bruising around the wound sites. This is common. If at any point you change your mind regarding rabies treatment you may return to the emergency department to start the series. Stitches need to be removed in 10 days. If there are no concerns for infection they can be taken out by your primary care office or in urgent care. You are also welcome to come back to the emergency department. However, if at any point you have concerns for infection need to be seen and reevaluated here in the ER. Coding Level of Care Code ED Side Stitching Machine Operator for Mark Berg
== END 2022-09-11 21:51 | disposition home or self-care (01) ==
PROVIDERS: Emergency Provider Physician Assistant; PCP Family Medicine
DX: S81.852A Open bite, left lower leg, initial encounter (principal); W54.0XXA Bitten by dog, initial encounter; Z23 Encounter for immunization
CPT/HCPCS: 90471; 90715; 99284

== ENCOUNTER 2022-09-14 19:23 | Emergency (ER) | payer MEDICAID, SELFPAY ==
[2022-09-14 19:35] VITALS: BP 133/80; PULSE 87; RESP 18; O2SAT 94; BMI 22.6
--- NOTE | 2022-09-14 20:00 | ED_ITS ---
HPI - Extremity Problem General: Chief complaint: Extremity Injury, Lower Stated complaint: dog bite Time Seen by Provider: 09/14/22 20:00 History of Present Illness: Presents to the ER with complaints of pain to her left calf region. Earlier this week patient was bitten by dog and had some lacerations on her left calf. These lacerations were loosely approximated with sutures and patient was placed on 2 antibiotics. These wounds look good and do not look infected. Patient's c chun is black and blue in the ecchymosis is going down into her foot. Patient states the pain is extreme and [id number] Tylenol Motrin is not working. Patient is taking her antibiotics as directed. 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 Mosher History of cholecystectomy History of hysterectomy History of laparoscopy 2010-for endometriosis 2015- for Mirena removal 01/17/2017-performed by Dr. Mosher at [facility] History of tubal ligation 12/2015- per Dr. Mosher at [facility] Family History Mother Stroke Hyperlipidemia Family history of thyroid problem Hypertension Father Degenerative disc disease Diabetes Unknown Breast cancer maternal great aunt Grandmother Ovarian cancer maternal Uterine cancer maternal Other Cancer Chronic kidney disease (CKD) Rheumatoid arthritis Denies family history of Lupus Physical Exam Const: COMMON NORMALS: no acute distress, average body habitus, patient indy ented x3, no limitations, healthy appearing, alert and well nourished HENMT: COMMON NORMALS: normocephalic, atraumatic, hearing grossly normal ju aterally, external ears normal, Normal external nose present and moist oral mucous membranes HEAD & SCALP: normocephalic and atraumatic NOSE: Normal external nose present EXTERNAL EAR: Yes external ears normal Neck/C-Spine: COMMON NORMALS: no JVD Chest: COMMONS NORMALS: normal inspection of the chest and normal palpation of entire chest wall Resp: COMMON NORMALS: normal respiratory effort, No retractions, No use of accessory muscles and clear to auscultation bilaterally AUSCULTATION: clear to auscultation bilaterally Cardio: COMMON NORMALS: no JVD, regular rate, regular rhythm, S1 normal heart sound present, S2 normal heart sound present, No gallops present (Cardio), No clicks present (Cardio), No murmurs present (Cardio) and No rub (Cardio) RATE: regular rate RHYTHM: regular rhythm HEART SOUNDS: S1 normal heart sound present and S2 normal heart sound present GI: COMMON NORMALS: Normal to inspection, nondistended, normoactive bowel sounds present, Soft to palpation, non-tender, No hepatosplenomegaly present and no masses PALPATION: Yes Soft to palpation and Yes No hepatosplenomegaly present Extremity: NARRATIVE EXTREMITY EXAM: Patient does have 2 lacerations on the left calf region that are loosely approximated with sutures. There is no drainage odor or discharge noted. The wounds look good and are healing. Patient does have extensive bruising to the calf and gravity is pulling down into the ankle. Neuro: COMMON NORMALS: patient oriented x3 SENSORIUM/ORIENTATION: Yes alert Course Vital Signs: Vital signs: Vital Signs Pulse Rate 88 09/14/22 21:00 Respiratory Rate 18 09/14/22 19:35 Blood Pressure 129/95 09/14/22 21:00 Pulse Oximetry 100 09/14/22 21:00 Oxygen Delivery Me thod Room Air 09/14/22 21:00 MDM - Extremity (Nontraumatic) Medical Decision Making Presents to the ER with complaints of left calf pain secondary to being bitten by dog earlier this week. Patient does have sutures in place and is on 2 antibiotics. Patient was given a shot of Toradol that she said did not help very much and she was given a [place] 10 for pain. This did help the patient's pain patient be discharged home with a few [place] to help with the pain. Patient should follow-up with her primary care practitioner as needed. Differential Diagnosis Unlikely herpes zoster, gout, cellulitis, superficial thrombophlebitis, deep venous thrombosis of upper extremity, lower extremity edema or deep vein thrombosis of lower extremity Medical Records I reviewed the patient's medical records. Lab Data I reviewed the patient's lab results. Discharge Plan Discharge Patient Disposition: Home Clinical Impression: Encounter for re-check of laceration wound Condition: Stable Prescriptions: New hydrocodone-acetaminophen 5-325 mg tablet 1 tab PO TID PRN (Reason: pain) Qty: 10 0RF No Action sulfasalazine 500 mg tablet 0.5 g PO BID Qty: 60 3RF Rx Instructions: Take 1 tab daily x1wk then stay on 1 tab twice daily.... give with food (meal/snack) leflunomide 20 mg tablet 20 mg PO DAILY Qty: 30 3RF cetirizine [Zyrtec] 10 mg tablet 10 mg PO DAILY Qty: 30 0RF clarithromycin 500 mg tablet 500 mg PO Q12H 10 Days Qty: 20 0RF fluticasone propionate [Flonase Allergy Relief] 50 mcg/actuation spray,suspension 2 spray intranasal DAILY Qty: 16 0RF Rx Instructions: administer into each nostril tramadol 50 mg tablet 100 mg PO Q4H PRN (Reason: Pain) gabapentin 300 mg capsule 600 mg PO QID 30 Days Qty: 240 3RF topiramate [Topamax] 100 mg Tablet 300 mg PO DAILY cholecalciferol (vitamin D3) [Vitamin D3] 25 mcg (1,000 unit) Capsule 50 mcg PO DAILY ondansetron 4 mg tablet,disintegrating 4 mg PO Q8H PRN (Reason: nausea and vomiting) Qty: 14 0RF cetirizine 10 mg tablet 10 mg PO DAILY citalopram 10 mg tablet 10 mg PO DAILY hydrocodone-acetaminophen 5-325 mg Tablet 1 tab PO Q4H PRN (Reason: Moderate To Severe Pain) Qty: 30 0RF ibuprofen 800 mg tablet 800 mg PO Q8H Qty: 30 0RF Colace 100 mg capsule 100 mg PO BID Qty: 60 0RF doxycycline hyclate 100 mg tablet 100 mg PO BID 10 Days Qty: 20 0RF clindamycin HCl 300 mg capsule 300 mg PO QID 10 Days Qty: 40 0RF Discharge Orders: Discharge ED (Routine); Ordered 09/14/22 Ordered By: Pradip Velazquez Referrals: Joaquin Mak MD [Primary Care Provider] - 4-7 days Patient Instructions: Wound Care (General) Activity Restrictions/Additional Instructions: Please take all your medicine as directed. Please continue to elevate your feet as needed to help reduce the swelling. Please continue to place ice on your affected extremity for 15 minutes on 15 minutes off throughout the day as needed. Please follow-up with your doctor in 4-7 more days for possible reevaluation and suture removal. Coding Level of Care Code ED Hha for Mark Berg
[2022-09-14] MEDS: ketorolac 60 mg/2 mL INJ IM (20:17)
[2022-09-14 21:00] VITALS: BP 129/95; PULSE 88; O2SAT 100
[2022-09-14] MEDS: HYDROcodone-acetaminophen 10-325 mg Tablet 1 TAB PO (21:29)
[2022-09-14 22:01] VITALS: BP 142/101; PULSE 90; RESP 16; O2SAT 100
== END 2022-09-14 21:59 | disposition home or self-care (01) ==
PROVIDERS: Emergency Provider Emergency Medicine; PCP Family Medicine
DX: S81.812A Laceration without foreign body, left lower leg, initial encounter (principal); S80.12XA Contusion of left lower leg, initial encounter; W54.0XXA Bitten by dog, initial encounter
CPT/HCPCS: 96372; 99284; J1885

== ENCOUNTER 2022-09-18 20:19 | Emergency (ER) | payer MEDICAID, SELFPAY ==
[2022-09-18 20:32] VITALS: BP 116/75; PULSE 114; RESP 16; TEMP 36.7; O2SAT 97; BMI 22.6
--- NOTE | 2022-09-18 20:39 | W.ED.ANIMALB ---
HPI - Animal Bite General: Chief Complaint: Animal Bite Stated Complaint: right leg injury Time Seen by Provider: 09/18/22 20:33 History of Present Illness: 31-year-old female comes in today with complaints of left lower leg pain. Patient concerned about the wound healing. Patient was bit on the by a dog. Patient was concerned due to some drainage from the wound site and mild redness at the site. Patient appears nontoxic. Patient appears in no pain at rest. Associated symptoms: Deny fever(s) Review of Systems Const: Denies: fever(s) Musc: Reports: extremity pain Skin/Breast: Reports: new lesions PFS ED PFSH: Medical History Abnormal Papanicolaou smear of cervix with positive human papilloma virus (HPV) test Abnormal uterine bleeding (AUB) Acute abscess of female pelvis Anxiety Bipolar disorder, unspecified Endometriosis determined by laparoscopy Family history of psoriasis in father High risk medication use Hx of migraines Inflammatory arthritis Inflammatory back pain Other assisted (current) drug therapy Ovarian mass, right Psychiatric care Seizures Surgical History H/O removal of cyst [address] Mosher History of cholecystectomy History of hysterectomy History of laparoscopy 2010-for endometriosis 2015- for Mirena removal 01/17/2017-performed by Dr. Mosher at [facility] History of tubal ligation 12/2015- per Dr. Mosher at [facility] Family History Mother Stroke Hyperlipidemia Family history of thyroid problem Hypertension Father Degenerative disc disease Diabetes Unknown Breast cancer maternal great aunt Grandmother Ovarian cancer maternal Uterine cancer maternal Other Cancer Chronic kidney disease (CKD) Rheumatoid arthritis Denies family history of Lupus Physical Exam Const: COMMON NORMALS: alert HENMT: COMMON NORMALS: normocephalic HEAD & SCALP: normocephalic Neck/C-Spine: COMMON NORMALS: full ROM Resp: COMMON NORMALS: normal respiratory effort Cardio: COMMON NORMALS: regular rate RATE: regular rate Back/Pelvis: COMMON NORMALS: thoracic and lumbar spine normal to inspection Extremity: LEFT LOWER EXTREMITY: Yes lower leg (Healing laceration left lower leg. No significant redness, surrounding bru) Neuro: SENSORIUM/ORIENTATION: Yes alert Skin: TRAUMA: laceration (Healing linear 2 lacerations left lower leg) Course Vital Signs: Vital signs: Vital Signs Temperature 98.0 F 09/18/22 20:32 Pulse Rate 114 H 09/18/22 20:32 Respiratory Rate 16 09/18/22 20:32 Blood Pressure 116/75 09/18/22 20:32 Pulse Oximetry 97 09/18/22 20:32 Oxygen Delivery Me thod Room Air 09/18/22 20:32 MDM - Animal Bite Medical Decision Making 31-year-old female comes in today with injury to the left lower leg. Patient was concerned due to the bruise to the and tenderness of the leg. Patient has patent difficulty with returning to normal activities. On exam patient has significant bruising to the left lower leg with 2 lacerations. Lacerations are healing with minimal to no redness noted to either wound. Differential diagnosis includes but not limited to DVT, wound infection, contusion, malingering. No signs of DVT was noted. Wound appears to be healing without difficulty. No signs of significant wound infection. Patient does have a large contusion to the lower leg which is probably can make it difficult for her to return to normal care. Patient reported understanding of care plan and need for follow-up or return to the ER. Discharge Plan Discharge Patient Disposition: Home Clinical Impression: Dog bite Laceration of leg not thigh, left Qualifiers: Encounter type: subsequent encounter Qualified Code(s): S81.812D - Laceration without foreign body, left lower leg, subsequent encounter Condition: Stable Prescriptions: New hydrocodone-acetaminophen 5-325 mg tablet 1 tab PO Q8H PRN (Reason: pain (scale score 7-10)) Qty: 10 0RF No Action sulfasalazine 500 mg tablet 0.5 g PO BID Qty: 60 3RF Rx Instructions: Take 1 tab daily x1wk then stay on 1 tab twice daily.... give with food (meal/snack) leflunomide 20 mg tablet 20 mg PO DAILY Qty: 30 3RF cetirizine [Zyrtec] 10 mg tablet 10 mg PO DAILY Qty: 30 0RF clarithromycin 500 mg tablet 500 mg PO Q12H 10 Days Qty: 20 0RF fluticasone propionate [Flonase Allergy Relief] 50 mcg/actuation spray,suspension 2 spray intranasal DAILY Qty: 16 0RF Rx Instructions: administer into each nostril tramadol 50 mg tablet 100 mg PO Q4H PRN (Reason: Pain) gabapentin 300 mg capsule 600 mg PO QID 30 Days Qty: 240 3RF topiramate [Topamax] 100 mg Tablet 300 mg PO DAILY cholecalciferol (vitamin D3) [Vitamin D3] 25 mcg (1,000 unit) Capsule 50 mcg PO DAILY ondansetron 4 mg tablet,disintegrating 4 mg PO Q8H PRN (Reason: nausea and vomiting) Qty: 14 0RF cetirizine 10 mg tablet 10 mg PO DAILY citalopram 10 mg tablet 10 mg PO DAILY hydrocodone-acetaminophen 5-325 mg Tablet 1 tab PO Q4H PRN (Reason: Moderate To Severe Pain) Qty: 30 0RF ibuprofen 800 mg tablet 800 mg PO Q8H Qty: 30 0RF Colace 100 mg capsule 100 mg PO BID Qty: 60 0RF doxycycline hyclate 100 mg tablet 100 mg PO BID 10 Days Qty: 20 0RF clindamycin HCl 300 mg capsule 300 mg PO QID 10 Days Qty: 40 0RF hydrocodone-acetaminophen 5-325 mg tablet 1 tab PO TID PRN (Reason: pain) Qty: 10 0RF Discharge Orders: Discharge ED (Routine); Ordered 09/18/22 Ordered By: Jeffrey Buchanan Referrals: Joaquin Mak MD [Primary Care Provider] - Discharge Diet: Usual diet Discharge Activity: Increase activity as tolerated Patient Instructions: Wound Care (General) Activity Restrictions/Additional Instructions: Clean wound twice a day with mild soap and water. Dry thoroughly and leave open to air for short periods of time. You may cover the wound if you are concerned of dirt getting in the wound or significant drainage. Apply antibiotic ointment to the wound twice a day until completely healed. Sutures need to come out in 4-7 more days. Follow-up with primary care at that time. Return to ED as needed. Increase activity to the lower extremity as tolerated. Use acetaminophen and ibuprofen to control pain. Use hydrocodone for severe pain. Coding Level of Care Code ED Pipe Organ Mechanic for Mark Berg
[2022-09-18] MEDS: mupirocin oint 22 gm 1 APPLIC TOPICAL (21:09)
[2022-09-18] MEDS: HYDROcodone-acetaminophen 5-325 mg Tablet 1 TAB PO (21:09)
== END 2022-09-18 21:15 | disposition home or self-care (01) ==
PROVIDERS: Emergency Provider Nurse Practitioner Family; PCP Family Medicine
DX: S81.852A Open bite, left lower leg, initial encounter (principal); W54.0XXA Bitten by dog, initial encounter
CPT/HCPCS: 99283

== ENCOUNTER 2022-09-24 16:51 | Emergency (ER) | payer MEDICAID, SELFPAY ==
[2022-09-24 16:56] VITALS: BP 133/88; PULSE 106; RESP 14; TEMP 36.8; O2SAT 98; BMI 22.6
--- NOTE | 2022-09-24 17:05 | USR_ITS ---
PROCEDURE INFORMATION: Exam: US Duplex Left Lower Extremity Veins, Limited Exam date and time: 09/24/2022 6:03 PM Age: 31 years old Clinical indication: Pain; Leg, lower; Left; Additional info: Pain, swelling leg, post injury TECHNIQUE: Imaging protocol: Real-time duplex ultrasound of the left extremity with 2-D may scale, color Doppler flow and spectral waveform analysis including responses to compression and other maneuvers (when performed) with image documentation. Limited exam focused on the left lower extremity veins. COMPARISON: US transvaginal [id number] 06/19/2022 3:12 PM FINDINGS: Left deep veins: Unremarkable. The common femoral, femoral, proximal profunda femoral and popliteal veins are patent without thrombus. Normal Doppler waveforms. Normal compressibility and/or augmentation response. Superficial veins: Unremarkable. Saphenofemoral junction is patent without thrombus. Soft tissues: Unremarkable. US/CV venous duplex [facility] [id number] IMPRESSION: No evidence of deep vein thrombosis.
[2022-09-24 17:25] LABS: Basophils # 0.1 10^3/uL (0.0-0.1); Basophils % 0.7 %; Eosinophils # 0.5 10^3/uL (0.0-0.8); Eosinophils % 4.4 %; Hematocrit 38.5 % (37.0-47.0); Hemoglobin 12.2 g/dL (11.5-15.3); Lymphocytes # 2.6 10^3/uL (0.8-4.8); Lymphocytes % 25.5 %; Mean Corpuscular HGB Conc 31.7 g/dL (30.0-36.0); Mean Corpuscular Hemoglobin 29.8 pg (28.0-34.0); Mean Corpuscular Volume 93.9 fl (81-99); Mean Platelet Volume 10.9 fL (7.4-10.4); Monocytes # 0.7 10^3/uL (0.2-0.9); Monocytes % 6.9 %; Neutrophils % 62.2 %; Nucleated Red Blood Cells % 0 %; Platelet Count 343 10^3/cmm (130-400); Red Cell Distribution Width 13.4 % (12.1-15.1); White Blood Count 10.1 10^3/uL (4.0-10.0)
[2022-09-24 17:37] LABS: Erythrocyte Sedimentation Rate 8 mm/hr (0-15)
[2022-09-24 18:00] LABS: D Dimer 0.37 ug/mIFEU (0-0.59)
[2022-09-24 18:09] LABS: Alanine Aminotransferase 167 U/L (0-33); Albumin Level 3.8 g/dL (3.5-5.2); Alkaline Phosphatase 219 U/L (35-105); Anion Gap 16.3 (5-19); Aspartate Amino Transferase 170 U/L (0-32); Blood Urea Nitrogen 12 mg/dL (6-20); Calcium 9.3 mg/dL (8.5-10.5); Carbon Dioxide 26 mmol/L (22-29); Chloride 102 mmol/L (98-107); Globulin 2.1 g/dL (1.3-4.6); Glomerular Filtration Rate 115.9 mL/min (90-130); Glucose 84 mg/dL (65-115); Osmolality Calculated 289 mOsm/kg (285-295); Potassium 4.3 mmol/L (3.5-5.1); Sodium 140 mmol/L (136-145); Total Bilirubin 0.2 mg/dL (0.15-1.2); Total Protein 5.9 g/dL (6.6-8.7)
[2022-09-24 18:10] LABS: Lactic Sepsis W/Reflex 0.8 mmol/L (0.5-2.2)
--- NOTE | 2022-09-24 18:22 | ED_ITS ---
HPI - Animal Bite General: Chief Complaint: Animal Bite Stated Complaint: left leg, previous animal bite Time Seen by Provider: 09/24/22 17:05 Source: patient Mode of arrival: ambulatory Limitations: no limitations History of Present Illness: 31-year-old female who is bit by dog little over 2 weeks ago. She did came back has been placed on antibiotics due to possible infection she is finished her an tibiotics she states she is been having some pain in the left lower calf she still has her sutures in place as well. She denies any drainage rates her pain a 5 out of 10 currently Associated symptoms: Deny chills, fever(s) or headache(s) Review of Systems Const: Denies: fever(s) or chills ENMT: Denies: throat pain or dental pain Card: Denies: chest pain Resp: Denies: dyspnea GI: Denies: abdominal pain, nausea, vomiting or diarrhea : Denies: dysuria or nocturia Musc: Reports: extremity pain and extremity swelling; Denies: neck pain or back pain Skin/Breast: Denies: rash Neuro: Denies: headache(s) PFSH ED PFSH: Medical History Abnormal Papanicolaou smear of cervix with positive human papilloma virus (HPV) test Abnormal uterine bleeding (AUB) Acute abscess of female pelvis Anxiety Bipolar disorder, unspecified Endometriosis determined by laparoscopy Family history of psoriasis in father High risk medication use Hx of migraines Inflammatory arthritis Inflammatory back pain 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 Mosher History of cholecystectomy History of hysterectomy History of laparoscopy 2010-for endometriosis 2015- for Mirena removal 01/17/2017-performed by Dr. Mosher at [facility] History of tubal ligation 12/2015- per Dr. Mosher at [facility] Family History Mother Stroke Hyperlipidemia Family history of thyroid problem Hypertension Father Degenerative disc disease Diabetes Unknown Breast cancer maternal great aunt Grandmother Ovarian cancer maternal Uterine cancer maternal Other Cancer Chronic kidney disease (CKD) Rheumatoid arthritis Denies family history of Lupus Physical Exam Const: COMMON NORMALS: no acute distress and patient oriented x3 Eye: COMMON NORMALS: conjunctivae normal CONJUNCTIVA: Yes conjunctivae normal Neck/C-Spine: COMMON NORMALS: supple Chest: COMMONS NORMALS: normal inspection of the chest Resp: COMMON NORMALS: normal respiratory effort Extremity: OTHER: Dog bite to left lower leg wounds are healing well no erythema or signs of infection sutures are still in place some swelling distal pulses sensation intact Neuro: COMMON NORMALS: patient oriented x3 Psych: COMMON NORMALS: mental status grossly normal Skin: COMMON NORMALS: no rashes or lesions noted GENERAL SKIN EXAM: no rashes or lesions noted Course Vital Signs: Vital signs: Vital Signs Temperature 98.2 F 09/24/22 16:56 Pulse Rate 106 H 09/24/22 16:56 Respiratory Rate 14 09/24/22 16:56 Blood Pressure 133/88 09/24/22 16:56 Pulse Oximetry 98 09/24/22 16:56 Oxygen Delivery Me thod Room Air 09/24/22 16:56 MDM - Animal Bite Medical Decision Making Patient presents here with leg pain from her dog bite wounds well-appearing no signs of infection ultrasound shows no DVT I did with remove her sutures she is stable for discharge she is to follow-up with PCP and return if worsening. Lab Data 09/24/22 17:15 09/24/22 17:15 Radiology Impressions Venous Duplex 09/24/22 17:05 IMPRESSION: No evidence of deep vein thrombosis. Laboratory Results WBC 10.1 10^3/uL (4.0-10.0) H 09/24/22 17:15 RBC 4.10 10^6/uL (4.1-5.3) 09/24/22 17:15 Hgb 12.2 g/dL (11.5-15.3) 09/24/22 17:15 Hct 38.5 % (37.0-47.0) 09/24/22 17:15 MCV 93.9 fl (81-99) 09/24/22 17:15 MCH 29.8 pg (28.0-34.0) 09/24/22 17:15 MCHC 31.7 g/dL (30.0-36.0) 09/24/22 17:15 RDW 13.4 % (12.1-15.1) 09/24/22 17:15 Plt Count 343 10^3/cmm (130-400) 09/24/22 17:15 MPV 10.9 fL (7.4-10.4) H 09/24/22 17:15 Neut % (Auto) 62.2 % 09/24/22 17:15 Lymph % (Auto) 25.5 % 09/24/22 17:15 [place] % (Auto) 6.9 % 09/24/22 17:15 Eos % (Auto) 4.4 % 09/24/22 17:15 Baso % (Auto) 0.7 % 09/24/22 17:15 Neut # (Auto) 6.30 10^3/uL (1.8-7.7) 09/24/22 17:15 Lymph # (Auto) 2.6 10^3/uL (0.8-4.8) 09/24/22 17:15 [place] # (Auto) 0.7 10^3/uL (0.2-0.9) 09/24/22 17:15 Eos # (Auto) 0.5 10^3/uL (0.0-0.8) 09/24/22 17:15 Baso # (Auto) 0.1 10^3/uL (0.0-0.1) 09/24/22 17:15 Nucleated RBC % (auto) 0 % 09/24/22 17:15 Nucleated RBCs # 0.0 /100WBC 09/24/22 17:15 ESR 8 mm/hr (0-15) 09/24/22 17:15 D-Dimer 0.37 ug/mIFEU (0-0.59) 09/24/22 17:15 Sodium 140 mmol/L (136-145) 09/24/22 17:15 Potassium 4.3 mmol/L (3.5-5.1) 09/24/22 17:15 Chloride 102 mmol/L (98-107) 09/24/22 17:15 Carbon Dioxide 26 mmol/L (22-29) 09/24/22 17:15 Anion Gap 16.3 (5-19) 09/24/22 17:15 BUN 12 mg/dL (6-20) 09/24/22 17:15 Creatinine 0.6 mg/dL (0.5-0.9) 09/24/22 17:15 GFR Calculation 115.9 mL/min (90-130) 09/24/22 17:15 Glucose 84 mg/dL (65-115) 09/24/22 17:15 Calculated Osmolality 289 mOsm/kg (285-295) 09/24/22 17:15 Lactic Acid 0.8 mmol/L (0.5-2.2) 09/24/22 17:15 Calcium 9.3 mg/dL (8.5-10.5) 09/24/22 17:15 Total Bilirubin 0.2 mg/dL (0.15-1.2) 09/24/22 17:15 AST 170 U/L (0-32) H 09/24/22 17:15 ALT 167 U/L (0-33) H 09/24/22 17:15 Alkaline Phosphatase 219 U/L (35-105) H 09/24/22 17:15 C-Reactive Protein 3.0 mg/L (0.0-4.9) 09/24/22 17:15 Total Protein 5.9 g/dL (6.6-8.7) L 09/24/22 17:15 Albumin 3.8 g/dL (3.5-5.2) 09/24/22 17:15 Globulin 2.1 g/dL (1.3-4.6) 09/24/22 17:15 Discharge Plan Discharge Patient Disposition: Home Clinical Impression: Dog bite, Visit for suture removal Condition: Stable Prescriptions: No Action sulfasalazine 500 mg tablet 0.5 g PO BID Qty: 60 3RF Rx Instructions: Take 1 tab daily x1wk then stay on 1 tab twice daily.... give with food (meal/snack) leflunomide 20 mg tablet 20 mg PO DAILY Qty: 30 3RF cetirizine [Zyrtec] 10 mg tablet 10 mg PO DAILY Qty: 30 0RF clarithromycin 500 mg tablet 500 mg PO Q12H 10 Days Qty: 20 0RF fluticasone propionate [Flonase Allergy Relief] 50 mcg/actuation spray,suspension 2 spray intranasal DAILY Qty: 16 0RF Rx Instructions: administer into each nostril tramadol 50 mg tablet 100 mg PO Q4H PRN (Reason: Pain) citalopram 10 mg tablet 10 mg PO DAILY 30 Days Qty: 30 3RF gabapentin 300 mg capsule 600 mg PO QID 30 Days Qty: 240 0RF topiramate [Topamax] 100 mg Tablet 300 mg PO DAILY hydrocodone-acetaminophen 5-325 mg tablet 1 tab PO Q8H PRN (Reason: pain (scale score 7-10)) Qty: 10 0RF cholecalciferol (vitamin D3) [Vitamin D3] 25 mcg (1,000 unit) Capsule 50 mcg PO DAILY ondansetron 4 mg tablet,disintegrating 4 mg PO Q8H PRN (Reason: nausea and vomiting) Qty: 14 0RF cetirizine 10 mg tablet 10 mg PO DAILY hydrocodone-acetaminophen 5-325 mg Tablet 1 tab PO Q4H PRN (Reason: Moderate To Severe Pain) Qty: 30 0RF ibuprofen 800 mg tablet 800 mg PO Q8H Qty: 30 0RF Colace 100 mg capsule 100 mg PO BID Qty: 60 0RF hydrocodone-acetaminophen 5-325 mg tablet 1 tab PO TID PRN (Reason: pain) Qty: 10 0RF Discharge Orders: Discharge ED (Routine); Ordered 09/24/22 Ordered By: Ramirez Elizabeth Referrals: Joaquin Mak MD [Primary Care Provider] - 1-3 days Discharge Diet: Advance as tolerated Discharge Activity: Resume usual activity Patient Instructions: Animal Bite (ED) Coding Level of Care Code ED Investigator Utility Bill Complaints for Mark Berg
[2022-09-24] MEDS: HYDROcodone-acetaminophen 5-325 mg Tablet 1 TAB PO (18:29)
== END 2022-09-24 18:46 | disposition home or self-care (01) ==
PROVIDERS: Nurse Practitioner Family; Emergency Provider Emergency Medicine; PCP Family Medicine
DX: Z48.02 Encounter for removal of sutures (principal)
CPT/HCPCS: 80053; 83605; 85025; 85378; 85651; 86140; 87040; 93971; 99284

== ENCOUNTER 2022-12-21 11:53 | Emergency (ER) | payer MEDICAID, SELFPAY ==
[2022-12-21 12:15] VITALS: PULSE 114; RESP 16; TEMP 36.8; O2SAT 97; BMI 23.2
--- NOTE | 2022-12-21 12:56 | W.ED.URI ---
HPI - URI/Sore Throat General: Chief Complaint: Upper Respiratory Infection Stated Complaint: upper resp, right leg injury from fall Time Seen by Provider: 12/21/22 12:55 History of Present Illness: 32-year-old female presents emergency department with complaints of right foot pain. She states she has also had a upper respiratory infection that she has been seen by her primary care provider for. She states that she is also been seen for her right foot pain and was advised to wear a brace and she states that she has stopped wearing the brace because she could not get her foot into her shoes. She states that on 12/19/2022 she was taking her family member out for the Halloween trigger treating when she stepped into a flower bed and felt like she hurt her right foot again. She states that is progressively become more painful and states that the pain right now is a 4 out of 10 but worse if she attempts to walk on it. She denies numbness or tingling to the extremity. She does endorse a significant sinus congestion as well. She denies fevers chills or night sweats. She denies cough. Associated symptoms: Reports nasal congestion Review of Systems General: Reports: 10 or more systems reviewed and unremarkable except in HPI and below ENMT: Reports: nasal discharge and nasal congestion Musc: Reports: extremity pain (right foot) and joint pain PFSH ED PFSH: Medical History Abnormal Papanicolaou smear of cervix with positive human papilloma virus (HPV) test Abnormal uterine bleeding (AUB) Acute abscess of female pelvis Anxiety Bipolar disorder, unspecified Endometriosis determined by laparoscopy Family history of psoriasis in father High risk medication use Hx of migraines Inflammatory arthritis Inflammatory back pain Other care home (current) drug therapy Ovarian mass, right Psychiatric care Seizures Vapes nicotine containing substance Surgical History H/O removal of cyst [address] Mosher History of cholecystectomy History of hysterectomy History of laparoscopy 2010-for endometriosis 2015- for Mirena removal 01/17/2017-performed by Dr. Mosher at [facility] History of tubal ligation 12/2015- per Dr. Mosher at [facility] Family History Mother Stroke Hyperlipidemia Family history of thyroid problem Hypertension Father Degenerative disc disease Diabetes Unknown Breast cancer maternal great aunt Grandmother Ovarian cancer maternal Uterine cancer maternal Other Cancer Chronic kidney disease (CKD) Rheumatoid arthritis Denies family history of Lupus Physical Exam Const: COMMON NORMALS: no acute distress, patient oriented x3 and alert HENMT: COMMON NORMALS: normocephalic and Normal nasal mucous membranes and turbinates present HEAD & SCALP: normocephalic NOSE: Normal nasal mucous membranes and turbinates present Eye: COMMON NORMALS: Equal, round and reactive pupils present, EOMs intact bilaterally and normal visual white by confrontation PUPIL: Yes Equal, round and reactive pupils present Neck/C-Spine: COMMON NORMALS: full ROM, no lymphadenopathy, supple and no meningeal signs Resp: COMMON NORMALS: normal respiratory effort, No retractions and clear to auscultation bilaterally AUSCULTATION: clear to auscultation bilaterally Cardio: COMMON NORMALS: regular rate, regular rhythm, S1 normal heart sound present, S2 normal heart sound present and Peripheral pulses 2+ throughout RATE: regular rate RHYTHM: regular rhythm HEART SOUNDS: S1 normal heart sound present and S2 normal heart sound present PERIPHERAL PULSES: Peripheral pulses 2+ throughout GI: COMMON NORMALS: Normal to inspection, nondistended, normoactive bowel sounds present, Soft to palpation and non-tender PALPATION: Yes Soft to palpation : COMMON NORMALS: Yes no CVA tenderness BLADDER/KIDNEY EXAM: Yes no CVA tenderness Back/Pelvis: COMMON NORMALS: no CVA tenderness and thoracic and lumbar spine normal to inspection Extremity: RIGHT LOWER EXTREMITY: Yes lower leg Right lower leg: Yes palpation (tender to dorsal right foot) Neuro: COMMON NORMALS: patient oriented x3 SENSORIUM/ORIENTATION: Yes alert MENINGEAL SIGNS: Yes no meningeal signs Skin: COMMON NORMALS: no rashes or lesions noted GENERAL SKIN EXAM: no rashes or lesions noted Procedures Orthopedic Splinting/Casting Injury #1: Lower Extremity Injury Location: foot Lower Extremity Immobilizer: Bala wrap Additional Comments: Patient was neurovascularly intact before and after the application of the elastic Bala wrap soft splint. Capillary refills less than 3 seconds both before and after the application of the splint. Instructions were given regarding when to loosen the splint and the importance of compliance with her previous physicians recommendations regarding the ankle splint and the use of this Bala wrap. Course Vital Signs: Vital signs: Vital Signs Temperature 98.2 F 12/21/22 12:15 Pulse Rate 115 H 12/21/22 14:29 Respiratory Rate 16 12/21/22 12:15 Blood Pressure 114/77 12/21/22 13:04 Pulse Oximetry 100 12/21/22 14:29 Oxygen Delivery Me thod Room Air 12/21/22 13:04 MDM - URI/Sore Throat Medical Decision Making Physical exam completed and documented, I will obtain a radiograph of the right foot to rule out fracture I suspect most likely this is a sprain/strain given her noncompliance with her wearing her splint as previously advised by her primary care provider. She is also most likely has a general upper respiratory viral infection and we will provide her recommendations for supportive care. I did obtain a COVID and influenza a and B swab which were both negative. Medical Records I reviewed the patient's medical records. Lab Data I reviewed the patient's lab results. Radiology Impressions Foot X-Ray 12/21/22 13:03 IMPRESSION: Osseous alignment is maintained.No interval fracture or dislocation is appreciated. Laboratory Results Influenza Type A Ag negative (Negative) 12/21/22 13:16 Influenza Type B Ag negative (Negative) 12/21/22 13:16 SARS-CoV-2 Ag (Rapid) Negative (Negative) 12/21/22 13:16 All radiology interpretation(s) finalized by discharge ED provider radiology interpretation(s): FINDINGS: Bones/joints: Osseous alignment is maintained.No interval displaced fracture or dislocation is appreciated. Ankle mortise alignment is maintained. There is some small plantar calcaneal spurring demonstrated. There is some accessory ossification site averaging for example about the navicular bone similar.? There is some mild chronic degeneration of the 1st metatarsophalangeal junction. Soft tissues: No radiopaque foreign body or subcutaneous emphysema is appreciated. XR/XR foot RT min 3V* [id number] IMPRESSION: Osseous alignment is maintained.No interval fracture or dislocation is appreciated. Discharge Plan Discharge Patient Disposition: Home Clinical Impression: Mild sprain of right ankle, URI (upper respiratory infection) Condition: Stable Prescriptions: New Naprosyn 500 mg tablet 500 mg PO BID PRN (Reason: pain) Qty: 14 0RF No Action cetirizine [Zyrtec] 10 mg tablet 10 mg PO DAILY Qty: 30 0RF gabapentin 300 mg capsule 600 mg PO QID 30 Days Qty: 240 3RF tramadol 50 mg tablet 100 mg PO Q4H PRN (Reason: Pain) topiramate [Topamax] 100 mg Tablet 300 mg PO DAILY cholecalciferol (vitamin D3) [Vitamin D3] 25 mcg (1,000 unit) Capsule 50 mcg PO DAILY ondansetron 4 mg tablet,disintegrating 4 mg PO Q8H PRN (Reason: nausea and vomiting) Qty: 14 0RF triamterene-hydrochlorothiazid 37.5-25 mg capsule 1 cap PO DAILY Discharge Orders: Discharge ED (Routine); Ordered 12/21/22 Ordered By: Panchito Hussein Referrals: Joaquin Mak MD [Primary Care Provider] - Discharge Diet: Advance as tolerated Discharge Activity: Resume usual activity Coding Level of Care Code ED Stove Fitter for Mark Berg
--- NOTE | 2022-12-21 13:03 | XRR_ITS ---
PROCEDURE INFORMATION: Exam: XR Right Foot Exam date and time: 12/21/2022 1:15 PM Age: 32 years old Clinical indication: Injury or trauma; Fall; Blunt trauma; Foot; Right; Additional info: Fall, pain TECHNIQUE: Imaging protocol: Radiologic exam of the right foot. 3image(s) are provided. Views: 3 or more views. COMPARISON: Right foot radiograph 04/27/2022 with no report currently available. FINDINGS: Bones/joints: Osseous alignment is maintained.No interval displaced fracture or dislocation is appreciated. Ankle mortise alignment is maintained. There is some small plantar calcaneal spurring demonstrated. There is some accessory ossification site averaging for example about the navicular bone similar. There is some mild chronic degeneration of the 1st metatarsophalangeal junction. Soft tissues: No radiopaque foreign body or subcutaneous emphysema is appreciated. XR/XR foot RT min 3V* [id number] IMPRESSION: Osseous alignment is maintained.No interval fracture or dislocation is appreciated.
[2022-12-21 13:04] VITALS: BP 114/77; PULSE 91; O2SAT 99
[2022-12-21 13:38] LABS: Influenza A by IFA negative (Negative); Influenza B by IFA negative (Negative)
[2022-12-21 13:40] LABS: SARS Covid-2 Antigen Negative (Negative)
[2022-12-21 14:29] VITALS: PULSE 115; O2SAT 100
== END 2022-12-21 14:42 | disposition home or self-care (01) ==
PROVIDERS: Emergency Provider Internal Medicine; PCP Family Medicine
DX: S93.401A Sprain of unspecified ligament of right ankle, initial encounter (principal); J06.9 Acute upper respiratory infection, unspecified; Z11.52 Encounter for screening for COVID-19; X58.XXXA Exposure to other specified factors, initial encounter
CPT/HCPCS: 73630; 87426; 87804; 99284

== ENCOUNTER 2023-02-09 21:12 | Emergency (ER) | payer MEDICAID, SELFPAY ==
[2023-02-09 21:18] VITALS: BP 115/75; PULSE 117; RESP 16; TEMP 36.4; O2SAT 99
[2023-02-09 22:46] LABS: HCG Qualitative Urine. Negative (Negative)
--- NOTE | 2023-02-09 22:46 | CTR_ITS ---
PROCEDURE INFORMATION: Exam: CT Abdomen And Pelvis With Contrast Exam date and time: 02/09/2023 11:05 PM Age: 32 years old Clinical indication: Abdominal pain; Localized; Left lower quadrant (llq); Prior surgery; Surgery date: 6+ months; Surgery type: Gb. Hysterectomy; Patient HX: Llq pain TECHNIQUE: Imaging protocol: Computed tomography of the abdomen and pelvis with contrast. Radiation optimization: All CT scans at this facility use at least one of these dose optimization techniques: automated exposure control; mA and/or kV adjustment per patient size (includes targeted exams where dose is matched to clinical indication); or iterative reconstruction. Contrast material: OMNI 350; Contrast volume: 80 ml; Contrast route: INTRAVENOUS (IV); REPORTING DATA: Count of CT and Cardiac NM exams in prior 12 months: This patient has received 2 known CTs and 0 known cardiac nuclear medicine studies in the 12 months prior to the current study. COMPARISON: CT abdomen pelvis wo con [id number] 06/19/2022 2:16 PM RADIATION DOSE METRICS: Total DLP (mGy-cm): 294.69 FINDINGS: Lungs: The visualized lung bases are clear. Liver: Liver is mildly enlarged. No enhancing mass. Gallbladder and bile ducts: Absent gallbladder. Pancreas: Unremarkable with no suspicious mass. No ductal dilation. Spleen: The spleen is not enlarged. No suspicious enhancing mass is noted. Adrenal glands: Normal. No mass. Kidneys and ureters: No solid renal mass or hydronephrosis. Stomach and bowel: The colon is rather fecal filled. Appendix: Normal appendix. Intraperitoneal space: Unremarkable. No free air. No suspicious fluid collection. Vasculature: No AAA or acute vascular lesion identified. Lymph nodes: No enlarged lymph nodes. Urinary bladder: There is mild bladder wall thickening, but the bladder is also not well distended. Nonspecific finding. Reproductive: Large left ovary that contains a few cystic foci up to 2.7 cm. The ovary measures up to 4.3 cm. Potentially absent uterus. Bones/joints: No acute fracture. Soft tissues: No acute or suspicious finding noted. CT/CT abdomen pelvis w con* [id number] IMPRESSION: 1. Large left ovary contains a few cysts up to 2.7 cm. 2. No small bowel obstruction, abscess or free air. The colon is rather fecal filled.
[2023-02-09] MEDS: morphine 4 mg/mL SDV 1 mL IVP (22:53)
[2023-02-09] MEDS: ondansetron 2 mg/ML SDV 2 mL 4 MG IVP (22:53)
--- NOTE | 2023-02-09 22:53 | ED_ITS ---
HPI - Abdominal Pain 2 General: Chief Complaint: Abdominal Pain Stated Complaint: ABD Pain Time Seen by Provider: 02/09/23 22:24 History of Present Illness: 32-year-old female with a history of sev eral abdominal surgeries. She presents with left lower quadrant pain. She notes the pain has been there on and off for a couple of weeks, but has hurt constantly since 1 AM today. She has been nauseated. She has not vomited. She has a history of a hysterectomy. No vaginal bleeding. She did note blood with wiping after urinating x 1. No blood in the stool. No fever. She notes that at times it feels like a masses there in her left lower quadrant. Her doctor felt this, and had ordered an outpatient ultrasound which has not yet been done. Associated Symptoms: Reports nausea; Denies chills, diarrhea, dysuria, fever(s), hematochezia and vomiting Review of Systems 2 Const: Denies: fever(s), chills or body aches Eyes: Denies: change in vision Card: Denies: chest pain or palpitations Resp: Denies: dyspnea, productive cough, non-productive cough or wheezing GI: Reports: abdominal pain and nausea; Denies: vomiting, diarrhea or hematochezia : Denies: flank pain, difficulty voiding or dysuria Skin/Breast: Denies: rash Neuro: Denies: headache(s), weakness in extremities, dizziness or confusion PFSH ED 2 PFSH: Medical History Vapes nicotine containing substance Seizures Hx of migraines Ovarian mass, right Family history of psoriasis in father High risk medication use Inflammatory back pain Inflammatory arthritis Psychiatric care Other skilled nursing (current) drug therapy Anxiety Bipolar disorder, unspecified Acute abscess of female pelvis Abnormal uterine bleeding (AUB) Abnormal Papanicolaou smear of cervix with positive human papilloma virus (HPV) test Endometriosis determined by laparoscopy Surgical History History of cholecystectomy History of hysterectomy History of laparoscopy 2010-for endometriosis 2015- for Mirena removal 01/17/2017-performed by Dr. Mosher at [facility] History of tubal ligation 12/2015- per Dr. Mosher at [facility] H/O removal of cyst [address] Mosher Family History Mother Stroke Hyperlipidemia Family history of thyroid problem Hypertension Father Degenerative disc disease Diabetes Unknown Breast cancer maternal great aunt Grandmother Ovarian cancer maternal Uterine cancer maternal Other Cancer Chronic kidney disease (CKD) Rheumatoid arthritis Denies family history of Lupus Physical Exam 2 Const: COMMON NORMALS: no acute distress GENERAL APPEARANCE: cooperative; not ill appearing and not frail appearing HENMT: COMMON NORMALS: normocephalic, atraumatic and Normal external nose present HEAD & SCALP: normocephalic and atraumatic FACE & SINUS: normal facial exam and face symmetric NOSE: Normal external nose present Eye: COMMON NORMALS: Equal, round and reactive pupils present and EOMs intact bilaterally PUPIL: Yes Equal, round and reactive pupils present Neck/C-Spine: GENERAL: Yes trachea midline Chest: CHEST: Yes Symmetrical chest wall rise Resp: COMMON NORMALS: normal respiratory effort, No retractions, No use of accessory muscles and clear to auscultation bilaterally AUSCULTATION: clear to auscultation bilaterally Cardio: COMMON NORMALS: regular rate and regular rhythm RATE: regular rate RHYTHM: regular rhythm GI: COMMON NORMALS: Normal to inspection, nondistended, normoactive bowel sounds present PALPATION: Yes Tenderness to palpation present (GI) Details: LLQ Extremity: COMMON NORMALS: no pedal edema Neuro: GREGORIO COMA SCALE: document GCS findings [place] coma scale eye opening: Spontaneous Gregorio coma scale verbal response: Orientated Gregorio coma scale motor response: Obey commands Gregorio coma scale total score: 15 S ENSORY EXAM: Yes extremities (intact) Psych: COMMON NORMALS: speech normal SPEECH: Yes normal speech Skin: COMMON NORMALS: no rashes or lesions noted GENERAL SKIN EXAM: no rashes or lesions noted Course 2 Vital Signs: Vital signs: Vital Signs Temperature 97.6 F 02/09/23 21:18 Pulse Rate 91 02/10/23 00:49 Respiratory Rate 16 02/10/23 00:49 Blood Pressure 132/90 02/10/23 00:49 Pulse Oximetry 100 02/10/23 00:49 MDM - Abdominal Pain Medical Decision Making 32-year-old female with left lower quadrant pain. Her white blood cell count is 12. Vitals are stable. Urinalysis is negative. Lipase is 69. Abdomen pelvis CT shows increased feces in the colon. There are cysts on the left ovary, which is enlarged. Pelvic ultrasound reveals no evidence of torsion. 2 left ovarian cysts measured up to 2.8 cm. Pain is improved. She will be allowed home. Outpatient follow-up with gynecology Lab Data 02/09/23 23:00 02/09/23 23:00 Labs/Radiology: Radiology Impressions Abdomen/Pelvis CT 02/09/23 22:46 IMPRESSION: 1. Large left ovary contains a few cysts up to 2.7 cm. 2. No small bowel obstruction, abscess or free air. The colon is rather fecal filled. Pelvis Ultrasound 02/10/23 00:10 IMPRESSION: 1. No evidence of torsion. 2. Two left ovarian cysts measure up to 2.8 cm. 3. Surgically absent uterus and right ovary. Laboratory Results WBC 12.18 10^3/uL (3.29-11.43) H 02/09/23 23:00 RBC 4.43 10^6/uL (3.85-5.65) 02/09/23 23:00 Hgb 13.50 g/dL (11.27-16.99) 02/09/23 23:00 Hct 40.9 % (36-47) 02/09/23 23:00 MCV 92.3 fl (85-98) 02/09/23 23:00 MCH 30.5 pg (27-33) 02/09/23 23:00 MCHC 33.0 g/dL (30-55) 02/09/23 23:00 RDW 13.2 % (12.1-15.1) 02/09/23 23:00 Plt Count 317 10^3/cmm (157-399) 02/09/23 23:00 MPV 10.7 fL (7.4-10.4) H 02/09/23 23:00 Neut % (Auto) 69.3 % 02/09/23 23:00 Lymph % (Auto) 22.7 % 02/09/23 23:00 Ferry % (Auto) 6.2 % 02/09/23 23:00 Eos % (Auto) 1.0 % 02/09/23 23:00 Baso % (Auto) 0.6 % 02/09/23 23:00 Neut # (Auto) 8.45 10^3/uL (1.8-7.7) H 02/09/23 23:00 Lymph # (Auto) 2.8 10^3/uL (0.8-4.8) 02/09/23 23:00 [place]erry # (Auto) 0.8 10^3/uL (0.2-0.9) 02/09/23 23:00 Eos # (Auto) 0.1 10^3/uL (0.0-0.8) 02/09/23 23:00 Baso # (Auto) 0.1 10^3/uL (0.0-0.1) 02/09/23 23:00 Nucleated RBC % (auto) 0 % 02/09/23 23:00 Nucleated RBCs # 0.0 /100WBC 02/09/23 23:00 Sodium 144 mmol/L (136-145) 02/09/23 23:00 Potassium 3.5 mmol/L (3.5-5.1) 02/09/23 23:00 Chloride 113 mmol/L (98-107) H 02/09/23 23:00 Carbon Dioxide 17 mmol/L (22-29) L 02/09/23 23:00 Anion Gap 17.5 (5-19) 02/09/23 23:00 BUN 11 mg/dL (6-20) 02/09/23 23:00 Creatinine 0.9 mg/dL (0.5-0.9) 02/09/23 23:00 GFR Calculation 72.1 mL/min (90-130) L 02/09/23 23:00 Glucose 95 mg/dL (65-115) 02/09/23 23:00 Calculated Osmolality 297 mOsm/kg (285-295) H 02/09/23 23:00 Calcium 9.1 mg/dL (8.5-10.5) 02/09/23 23:00 Total Bilirubin 0.2 mg/dL (0.15-1.2) 02/09/23 23:00 AST 14 U/L (0-32) 02/09/23 23:00 ALT 28 U/L (0-33) 02/09/23 23:00 Alkaline Phosphatase 125 U/L (35-105) H 02/09/23 23:00 Total Protein 6.7 g/dL (6.6-8.7) 02/09/23 23:00 Albumin 4.1 g/dL (3.5-5.2) 02/09/23 23:00 Globulin 2.6 g/dL (1.3-4.6) 02/09/23 23:00 Lipase 69 U/L (13-60) H 02/09/23 23:00 HCG, Qual Negative (Negative) 02/09/23 22:32 Urine Color Yellow (Yellow) 02/09/23 22:32 Urine Appearance Sl hazy (CLEAR) A 02/09/23 22: Urine pH 5 (5-7) 02/09/23 22:32 Ur Specific Girard 1.025 (1.005-1.030) 02/09/23 22:32 Urine Protein Neg (Negative) 02/09/23 22:32 Urine Glucose (UA) Norm (Normal) 02/09/23 22: Urine Ketones Negative (Negative) 02/09/23 22: Urine Blood 2+ (Negative) H 02/09/23 22:32 Urine Nitrate Negative (Negative) 02/09/23 22:32 Urine Bilirubin Neg (Negative) 02/09/23 22:32 Urine Urobilinogen Norm mg/dL (Negative) 02/09/23 22:32 Ur Leukocyte Esterase Negative (Negative) 02/09/23 22:32 Urine RBC 5-10 /hpf (0-2) H 02/09/23 22:32 Urine WBC 5-10 /hpf (0-5) H 02/09/23 22:32 Ur Squamous Epith Cells 5-10 /hpf (0-5) H 02/09/23 22:32 Amorphous Sediment Not Reportable 02/09/23 22:32 Urine Bacteria 1+ /hpf (NONE) H 02/09/23 22:32 Urine Mucus 2+ /hpf 02/09/23 22:32 All radiology interpretation(s) finalized by discharge Discharge Plan Discharge Patient Disposition: Home Clinical Impression: Left lower quadrant abdominal pain, Ovarian cyst Condition: Stable Prescriptions: New ketorolac 10 mg tablet 10 mg PO TID PRN (Reason: pain) Qty: 10 0RF ondansetron 4 mg tablet,disintegrating 4 mg PO Q6H PRN (Reason: nausea and vomiting) Qty: 14 0RF No Action cetirizine [Zyrtec] 10 mg tablet 10 mg PO DAILY Qty: 30 0RF buspirone 10 mg tablet 10 mg PO BID Qty: 60 3RF gabapentin 300 mg capsule 600 mg PO QID 30 Days Qty: 240 3RF (DME) ASO to right See Rx Instructions .Route .MEDSUPPLY Qty: 1 0RF Rx Instructions: As directed (DME) CAM boot to right See Rx Instructions .Route .MEDSUPPLY Qty: 1 0RF Rx Instructions: As directed tramadol 50 mg tablet 100 mg PO Q4H PRN (Reason: Pain) topiramate [Topamax] 100 mg Tablet 300 mg PO DAILY cholecalciferol (vitamin D3) [Vitamin D3] 25 mcg (1,000 unit) Capsule 50 mcg PO DAILY ondansetron 4 mg tablet,disintegrating 4 mg PO Q8H PRN (Reason: nausea and vomiting) Qty: 14 0RF triamterene-hydrochlorothiazid 37.5-25 mg capsule 1 cap PO DAILY Naprosyn 500 mg tablet 500 mg PO BID PRN (Reason: pain) Qty: 14 0RF Discharge Orders: Discharge ED (Routine); Ordered 02/10/23 Ordered By: Edward Hilario Referrals: Joaquin Mak MD [Primary Care Provider] - 1-3 days Patient Instructions: Ovarian Cyst (ED), Abdominal Pain (ED), Opioid Safety, Pain Management Activity Restrictions/Additional Instructions: Return for fever, vomiting liquids or medications, worsening pain despite treatment, other concerning symptoms. See your doctor next week. referral has been placed to gynecology as well. You should hear from them next week. Coding Level of Care Code ED Dust Puller for Mark Berg
[2023-02-09 22:56] LABS: Add Urine Microscopic? YES; Bacteria Urine 1+ /hpf; Bilirubin Urine Neg (Negative); Blood Urine 2+ (Negative); Glucose Urine UA Norm (Normal); Ketones Urine Negative (Negative); Leukocyte Esterase Urine Negative (Negative); Nitrate Urine Negative (Negative); Protein Urine Neg (Negative); Specific Gravity, Urine 1.025 (1.005-1.030); Urine Appearance SL Hazy (CLEAR); Urine Color Yellow (Yellow); Urobilinogen Urine Norm (Negative); pH Urine 5 (5-7)
[2023-02-09 22:57] LABS: Mucus Urine 2+ /hpf
[2023-02-09 23:07] LABS: Basophils # 0.1 10^3/uL (0.0-0.1); Basophils % 0.6 %; Eosinophils # 0.1 10^3/uL (0.0-0.8); Hematocrit 40.9 % (36-47); Lymphocytes # 2.8 10^3/uL (0.8-4.8); Lymphocytes % 22.7 %; Mean Corpuscular Hemoglobin 30.5 pg (27-33); Mean Corpuscular Volume 92.3 fl (85-98); Mean Platelet Volume 10.7 fL (7.4-10.4); Monocytes # 0.8 10^3/uL (0.2-0.9); Monocytes % 6.2 %; Neutrophils # 8.45 10^3/uL (1.8-7.7); Neutrophils % 69.3 %; Nucleated Red Blood Cells % 0 %; Platelet Count 317 10^3/cmm (157-399); Red Blood Count 4.43 10^6/uL (3.85-5.65); Red Cell Distribution Width 13.2 % (12.1-15.1); White Blood Count 12.18 10^3/uL (3.29-11.43)
[2023-02-09] MEDS: iohexol 350 mg/mL 500 mL Btl (per mL) IV (23:07)
[2023-02-09 23:29] LABS: Alanine Aminotransferase 28 U/L (0-33); Albumin Level 4.1 g/dL (3.5-5.2); Alkaline Phosphatase 125 U/L (35-105); Anion Gap 17.5 (5-19); Aspartate Amino Transferase 14 U/L (0-32); Blood Urea Nitrogen 11 mg/dL (6-20); Calcium 9.1 mg/dL (8.5-10.5); Carbon Dioxide 17 mmol/L (22-29); Chloride 113 mmol/L (98-107); Globulin 2.6 g/dL (1.3-4.6); Glomerular Filtration Rate 72.1 mL/min (90-130); Glucose 95 mg/dL (65-115); Lipase 69 U/L (13-60); Osmolality Calculated 297 mOsm/kg (285-295); Potassium 3.5 mmol/L (3.5-5.1); Sodium 144 mmol/L (136-145); Total Bilirubin 0.2 mg/dL (0.15-1.2); Total Protein 6.7 g/dL (6.6-8.7)
[2023-02-09] MEDS: sodium chloride 0.9% 1,000 ML 999 ML IV (23:48)
--- NOTE | 2023-02-10 00:10 | USR_ITS ---
PROCEDURE INFORMATION: Exam: US Pelvis Complete, Transabdominal and US Duplex Artery or Vein, Ovaries, Limited Exam date and time: 02/10/2023 1:03 AM Age: 32 years old Clinical indication: Pelvic pain; Prior surgery; Surgery date: 6+ months; Surgery type: Hysterectomy and RT o removed; Additional info: Llq pain. Enlarged L ovary TECHNIQUE: Imaging protocol: Real-time transabdominal pelvic ultrasound with image documentation. Real-time duplex ultrasound scan of the arterial or venous flow of the ovaries with B-mode, color Doppler flow and spectral waveform analysis. Complete Pelvis, Limited Duplex. Duplex exam was performed to evaluate for torsion and other vascular conditions. COMPARISON: US pelvic complete* [id number] 07/28/2020 3:42 PM FINDINGS: Uterus: Status post hysterectomy. Right ovary/adnexa: Status post right oophorectomy. Left ovary/adnexa: Contains a few cystic foci that measure up to 2.8 cm. Normal ovary otherwise. No solid mass. Normal arterial and venous flow on color and Duplex waveforms. Intraperitoneal space: No free fluid. Urinary bladder: Normal. US/US pelvic complete* [id number] IMPRESSION: 1. No evidence of torsion. 2. Two left ovarian cysts measure up to 2.8 cm. 3. Surgically absent uterus and right ovary.
[2023-02-10 00:49] VITALS: BP 132/90; PULSE 91; RESP 16; O2SAT 100
--- NOTE | 2023-02-11 23:58 | DCPLANNER ---
Message sent to OBGYN for follow up appointment for LLQ abd pain, Ovarian cyst.
== END 2023-02-10 01:48 | disposition home or self-care (01) ==
PROVIDERS: Emergency Medicine; Emergency Provider Emergency Medicine; PCP Family Medicine
DX: N83.202 Unspecified ovarian cyst, left side (principal); R10.32 Left lower quadrant pain
CPT/HCPCS: 74177; 76856; 80053; 81001; 81025; 83690; 85025; 96374; 96375; 99285; J2060; J2270; J2405; J7030; Q9967

== ENCOUNTER 2023-02-23 09:12 | Outpatient (CLI) | payer MEDICAID, SELFPAY ==
--- NOTE | 2023-02-23 09:30 | MR_ITS ---
WS: [id number] EXAMINATION: MR ankle RT wo con* [id number] ORDER DATE: 02/23/2023 9:30 AM COMPARISON: None. HISTORY: eval for a tendon or ligament tear CONTRAST: None. TECHNIQUE: Axial proton density fat sat, axial T1, sagittal proton density, sagittal STIR, coronal T2 fat sat, and coronal T1 sequences performed. After contrast, axial T1 fat sat, coronal T1 fat sat, and sagittal T1 fat sat were performed. FINDINGS: Normal anatomic alignment. No acute fractures. Small plantar calcaneal spur. Normal ankle mortise. No rmal medial and lateral malleolus. Normal deltoid ligament. Normal ATF. Talar dome is normal. Normal medial and lateral malleolus. Talar dome is normal. Distal Achilles is normal in appearance. Normal calcaneus. Normal talonavicular and talocalcaneal art iculations. Normal cuboid. Base of the fifth metatarsal is normal. Trace tenosynovitis along the riri demetrio tendons. Distal Achilles is normal in appearance. Extensor and flexor compartment tendons are no rmal in appearance. Mild thickening medial head plantar fascia with a small amount of edema. Maximum transverse dimension measures 4 mm. No significant edema in the underlying calcaneus. IMPRESSION: 1. Plantar calcaneal spurring. Mild thickening of the medial head plantar fascia measuring 4 mm with a small amount of subcutaneous edema. Recommend correlation for plantar fasciitis. 2. Distal Achilles is normal in appearance. 3. Trace tenosynovitis along the peroneal tendons. 4. No other acute findings.
== END 2023-02-23 09:13 | disposition home or self-care (01) ==
LOC: RAD 09:13
PROVIDERS: PCP Family Medicine; Visit Provider Podiatrist Foot & Ankle Surgery
DX: S99.911A Unspecified injury of right ankle, initial encounter (principal); S93.409A Sprain of unspecified ligament of unspecified ankle, initial encounter; M76.71 Peroneal tendinitis, right leg; X58.XXXA Exposure to other specified factors, initial encounter; M77.31 Calcaneal spur, right foot; R93.6 Abnormal findings on diagnostic imaging of limbs
CPT/HCPCS: 73721

== ENCOUNTER 2023-03-27 14:39 | Outpatient (CLI) | payer MEDICAID, SELFPAY ==
--- NOTE | 2023-03-27 14:49 | XR_ITS ---
WS: [id number] XR pelvis 1-2V* [id number] REASON FOR EXAM: LOW BACK PAIN FINDINGS: Sacroiliac joints are well-defined with thin sclerotic margins. No erosions, bridging, or fusion. No sacral insufficiency fractures. No significant abnormality of the hips. IMPRESSION: No significant abnormality.
== END 2023-03-27 14:40 | disposition home or self-care (01) ==
LOC: RAD 14:43
PROVIDERS: Visit Provider General Practice
DX: M54.50 Low back pain, unspecified (principal)
CPT/HCPCS: 72170

== ENCOUNTER 2023-05-01 14:19 | Emergency (ER) | payer MEDICAID, SELFPAY ==
[2023-05-01 14:21] VITALS: BP 135/89; PULSE 94; RESP 14; TEMP 36.7; O2SAT 99
--- NOTE | 2023-05-01 14:58 | ED_ITS ---
HPI - Neck Pain/Injury General: Chief Complaint: Extremity Injury, Upper Stated Complaint: neck and right shcould pain Time Seen by Provider: 05/01/23 14:50 Source: patient Mode of arrival: ambulatory Limitations: no limitations History of Present Illness: Patient is a 32-year-old female presents to ED today stating I pulled something in the right side of my neck and shoulder . Patient states she has had identical symptoms previously although thinks in the past may have been on her left side. She states in the past they have successfully been treated with anti-inflammatories, steroids, muscle relaxers. She has not had any direct injury or trauma. She denies numbness, tingling, loss of sensation to the extremity. No headache. MD complaint: neck pain and upper back pain Onset (ago): day(s) Place: home Radiation: right lateral and right shoulder Severity: moderate Quality: aching and spasming Duration: constant Relieving factors: none Exacerbating factors: movement of extremity and movement of neck Associated symptoms: Reports no associated symptoms; Denies headache(s) Treatments prior to arrival: none Review of Systems Const: Denies: fever(s), chills, body aches, fatigue or malaise Eyes: Denies: change in vision, blurry vision, blind spots, floaters or seeing flashes Musc: Reports: neck pain, back pain and joint pain; Denies: extremity pain, extremity swelling, joint swelling, joint redness, joint warmth, joint stiffness, muscle cramps, muscle weakness or decrease in muscle mass Skin/Breast: Denies: rash Neuro: Denies: headache(s), numbness in extremities, weakness in extremities or sensory changes [facility] ED PFSH: Medical History Vapes nicotine containing substance Seizures Hx of migraines Ovarian mass, right Family history of psoriasis in father High risk medication use Inflammatory back pain Inflammatory arthritis Psychiatric care Other long-term (current) drug therapy Anxiety Bipolar disorder, unspecified Acute abscess of female pelvis Abnormal uterine bleeding (AUB) Abnormal Papanicolaou smear of cervix with positive human papilloma virus (HPV) test Endometriosis determined by laparoscopy Surgical History History of cholecystectomy History of hysterectomy History of laparoscopy 2010-for endometriosis 2015- for Mirena removal 01/17/2017-performed by Dr. Mosher at [facility] History of tubal ligation 12/2015- per Dr. Mosher at [facility] H/O removal of cyst [address] Mosher Family History Mother Stroke Hyperlipidemia Family history of thyroid problem Hypertension Father Degenerative disc disease Diabetes Unknown Breast cancer maternal great aunt Grandmother Ovarian cancer maternal Uterine cancer maternal Other Cancer Chronic kidney disease (CKD) Rheumatoid arthritis Denies family history of Lupus Physical Exam Const: COMMON NORMALS: no acute distress, average body habitus, patient oriented x3, no limitations, alert and well nourished HENMT: COMMON NORMALS: normocephalic and atraumatic HEAD & SCALP: normal to inspection, normocephalic and atraumatic FACE & SINUS: normal facial exam Neck/C-Spine: COMMON NORMALS: full ROM, no lymphadenopathy, supple, no meningeal signs, no JVD, Thyroid normal and No carotid bruits GENERAL: Yes normal visual inspection THYROID: Thyroid normal CERVICAL SPINE: No Cervical spine tenderness and Yes Trapezius muscle tenderness right Cardio: COMMON NORMALS: no JVD Back/Pelvis: COMMON NORMALS: thoracic and lumbar spine normal to inspection THORACIC SPINE/UPPER BACK: Yes other soft tissue findings (direct tenderness over R trapezius musculature; spasm) Extremity: COMMON NORMALS: capillary refill normal GENERAL: Yes normal exam except as noted RIGHT UPPER EXTREMITY: Yes shoulder joint (TTP overlying R trapezius musculature; spasm) Right shoulder: Yes Right shoulder joint neurova scular exam (normal) Neuro: COMMON NORMALS: patient oriented x3, moves all extremities, no focal motor deficits and no sensory deficits noted SENSORIUM/ORIENTATION: Yes alert MENINGEAL SIGNS: Yes no meningeal signs Course Vital Signs: Vital signs: Vital Signs Temperature 98.0 F 05/01/23 14:21 Pulse Rate 87 05/01/23 15:13 Respiratory Rate 14 05/01/23 14:21 Blood Pressure 132/88 05/01/23 15:13 Pulse Oximetry 100 05/01/23 15:13 Oxygen Delivery Me thod Room Air 05/01/23 15:13 MDM - Neck Pain/Injury Medical Decision Making Patient has direct tenderness over her right trapezius musculature with spasm. She has had very similar symptoms previously and has been successfully treated with anti-inflammatories, steroids, muscle relaxers. Return precautions given. Differential Diagnosis Likely disc disorder of cervical region, torticollis, cervical spondylosis and strain of neck muscle Medical Records I reviewed the patient's medical records. No radiology studies performed this visit Discharge Plan Discharge Patient Disposition: Home Clinical Impression: Strain of right trapezius muscle Qualifiers: Encounter type: initial encounter Qualified Code(s): S46.811A - Strain of other muscles, fascia and tendons at shoulder and upper arm level, right arm, initial encounter Condition: Stable Prescriptions: New ibuprofen 600 mg tablet 600 mg PO Q6H PRN (Reason: pain) Qty: 20 0RF cyclobenzaprine 10 mg tablet 10 mg PO TID Qty: 14 0RF Medrol (Soto) 4 mg tablets,dose pack See Rx Instructions .ROUTE .COMPLEX Qty: 21 0RF Rx Instructions: orally per package directions Discontinued methylprednisolone [Medrol (Soto)] 4 mg tablets,dose pack See Rx Instructions PO PER PKG DIR Qty: 21 0RF Rx Instructions: PO PER PKG DIR naproxen [Naprosyn] 500 mg tablet 500 mg PO BID PRN (Reason: pain) Qty: 14 0RF ketorolac 10 mg tablet 10 mg PO TID PRN (Reason: pain) Qty: 10 0RF No Action cetirizine [Zyrtec] 10 mg tablet 10 mg PO DAILY Qty: 30 0RF sulfasalazine 500 mg tablet 0.5 g PO BID Qty: 60 3RF leflunomide 20 mg tablet 20 mg PO DAILY Qty: 30 3RF (DME) ASO to right See Rx Instructions .Route .MEDSUPPLY Qty: 1 0RF Rx Instructions: As directed (DME) CAM boot to right See Rx Instructions .Route .MEDSUPPLY Qty: 1 0RF Rx Instructions: As directed tramadol 50 mg tablet 100 mg PO Q4H PRN (Reason: Pain) buspirone 10 mg tablet 10 mg PO BID Qty: 60 3RF gabapentin 300 mg capsule 600 mg PO QID 30 Days Qty: 240 3RF topiramate [Topamax] 100 mg Tablet 300 mg PO DAILY cholecalciferol (vitamin D3) [Vitamin D3] 25 mcg (1,000 unit) Capsule 50 mcg PO DAILY ondansetron 4 mg tablet,disintegrating 4 mg PO Q8H PRN (Reason: nausea and vomiting) Qty: 14 0RF triamterene-hydrochlorothiazid 37.5-25 mg capsule 1 cap PO DAILY ondansetron 4 mg tablet,disintegrating 4 mg PO Q6H PRN (Reason: nausea and vomiting) Qty: 14 0RF trazodone 150 mg tablet 150 mg PO BEDTIME Discharge Orders: Discharge ED (Routine); Ordered 05/01/23 Ordered By: Joann Hernandez Referrals: Joaquin Mak MD [Primary Care Provider] - Coding Level of Care Code ED Passenger Agent for Meghanag Otis
[2023-05-01] MEDS: orphenadrine 30 mg/mL Inj 2 mL 60 MG IM (15:05)
[2023-05-01] MEDS: dexamethasone 10 mg/mL INJ 6 MG IM (15:07)
[2023-05-01] MEDS: ketorolac 30 mg/mL INJ IM (15:09)
[2023-05-01 15:13] VITALS: BP 132/88; PULSE 87; O2SAT 100
[2023-05-01 15:36] VITALS: BP 126/79; PULSE 95; O2SAT 100
== END 2023-05-01 15:37 | disposition home or self-care (01) ==
PROVIDERS: Emergency Provider Physician Assistant; PCP Family Medicine
DX: S46.811A Strain of other muscles, fascia and tendons at shoulder and upper arm level, right arm, initial encounter (principal); X58.XXXA Exposure to other specified factors, initial encounter
CPT/HCPCS: 96372; 99284; J1100; J1885; J2360

== ENCOUNTER 2023-05-01 20:38 | Emergency (ER) | payer MEDICAID, SELFPAY ==
[2023-05-01 20:40] VITALS: BP 126/84; PULSE 121; RESP 18; TEMP 36.7; O2SAT 99
--- NOTE | 2023-05-01 20:55 | PC.NURSE ---
placed pt on bedside air sampling and monitoring
[2023-05-01 21:01] VITALS: BP 142/91; PULSE 93; RESP 20; O2SAT 100
--- NOTE | 2023-05-01 21:13 | ECG_ITS ---
[facility] Test Date: 2023-05-01 Pat Name: Mary Nesbitt Department: Room: Gender: Female Senior Visual Designer: : 1990 Requested By: Panchito Hussein Order Number: [id number] Chanel MD: Geena Multani M.D. Measurements Intervals [place] Rate: 94 P: 66 DE: 137 QRS: 65 QRSD: 84 T: 80 QT: 295 QTc: 370 Interpretive Statements SINUS RHYTHM WITH SINUS ARRHYTHMIA NONSPECIFIC ST & T-WAVE ABNORMALITY Compared to ECG 04/08/2020 12:20:04 Sinus tachycardia no longer present Myocardial infarct finding no longer present Possible ischemia no longer present T-wave abnormality still present Electronically Signed On 05-01-2023 23:06:18 CDT by Geena Multani M.D. [id number]
--- NOTE | 2023-05-01 21:24 | W.ED.ARRPALP ---
HPI - Arrhythmia/Palpitations General: Chief Complaint: Arrhythmia/Palpitations Stated Complaint: sob heart race reaction Time Seen by Provider: 05/01/23 20:53 History of Present Illness: 32-year-old female presents emergency department stating she feels like her heart is racing. She states that she was seen earlier for sore muscles in her neck and upper back and received Toradol, a steroid shot, and a muscle relaxer. She states she did go home and lay down and rest and felt like she was having intermittent racing beats of her heart. She denies shortness of breath dizziness or lightheaded feeling. She denies chest pain nausea or vomiting Review of Systems General: Reports: 10 or more systems reviewed and unremarkable except in HPI and below Card: Reports: palpitations; Denies: chest pain or lightheadedness PFSH ED PFSH: Medical History Vapes nicotine containing substance Seizures Hx of migraines Ovarian mass, right Family history of psoriasis in father High risk medication use Inflammatory back pain Inflammatory arthritis Psychiatric care Other senior living (current) drug therapy Anxiety Bipolar disorder, unspecified Acute abscess of female pelvis Abnormal uterine bleeding (AUB) Abnormal Papanicolaou smear of cervix with positive human papilloma virus (HPV) test Endometriosis determined by laparoscopy Surgical History History of cholecystectomy History of hysterectomy History of laparoscopy 2010-for endometriosis 2015- for Mirena removal 01/17/2017-performed by Dr. Mosher at [facility] History of tubal ligation 12/2015- per Dr. Mosher at [facility] H/O removal of cyst [address] Mosher Family History Mother Stroke Hyperlipidemia Family history of thyroid problem Hypertension Father Degenerative disc disease Diabetes Unknown Breast cancer maternal great aunt Grandmother Ovarian cancer maternal Uterine cancer maternal Other Cancer Chronic kidney disease (CKD) Rheumatoid arthritis Denies family history of Lupus Physical Exam Narrative: EXAM NARRATIVE: Constitutional: the patient appears well nourished and of normal development. Vital signs as documented. No acute distress at present. Alert and oriented-to person, place, time and situation. Head, eyes, ears, nose, mouth, throat: Normocephalic, atraumatic. Pupils-equal, round, reactive to light. No scleral icterus. Normal-appearing external ears. Normal appearing nasal turbinates, no drainage. No obvious oral lesions, posterior oropharynx without erythema or exudates. Neck: Supple, trachea is midline, no lymphadenopathy, no jugular venous distension, thyromegaly, or carotid bruits. Carotid upstrokes are brisk bilaterally. Lungs: clear to auscultation to all lung white. Symmetrical rise and fall of chest, no obvious signs of increased work of breathing at present. Cardiac: Regular rate and rhythm, positive S1, S2. No murmurs, rubs or gallops that I can appreciate Abdomen: Soft, non-tender to palpation, normal active bowel sounds to all quadrants. No palpable masses, no organomegaly and abdominal bruits. Extremities: 2+ pulses in the upper extremities that are equal bilaterally, 2+ pulses in the lower extremities that are equal bilaterally. Non-edematous. Moves all extremities well, sensation to all extremities are noted. Skin: Warm, dry, intact. Course Vital Signs: Vital signs: Vital Signs Temperature 98.0 F 05/01/23 20:40 Pulse Rate 93 05/01/23 21:01 Respiratory Rate 20 H 05/01/23 21:01 Blood Pressure 142/91 05/01/23 21:01 Pulse Oximetry 100 05/01/23 21:01 Oxygen Delivery Me thod Room Air 05/01/23 20:40 MDM - Arrhythmia/Palpitations Medical Decision Making Physical exam completed and documented we will obtain a twelve-lead EKG I have read reviewed the patient's previous medical record I will monitor here in the emergency department she does appear to have normal sinus rhythm at present. She does have intermittent sinus tachycardia when talking to her family member that is present and in the room. She does have stable vital signs with a blood pressure of 128/88 oxygen saturation of 98. She does appear to be intermittently making herself hyperventilate. Medical Records I reviewed the patient's medical records. No radiology studies performed this visit EKG Data EKG 1: Interpretation: Twelve-lead EKG obtained at 2032 and reviewed at 2034 demonstrates sinus arrhythmia with underlying sinus rhythm. Ventricular rate of 94 bpm, AR interval 137, QRS duration 84, QT [address] elevation or depression at present to demonstrate acute ischemia or infarction. Discharge Plan Discharge Patient Disposition: Home Clinical Impression: Heart palpitations Condition: Stable Prescriptions: No Action cetirizine [Zyrtec] 10 mg tablet 10 mg PO DAILY Qty: 30 0RF sulfasalazine 500 mg tablet 0.5 g PO BID Qty: 60 3RF leflunomide 20 mg tablet 20 mg PO DAILY Qty: 30 3RF (DME) ASO to right See Rx Instructions .Route .MEDSUPPLY Qty: 1 0RF Rx Instructions: As directed (DME) CAM boot to right See Rx Instructions .Route .MEDSUPPLY Qty: 1 0RF Rx Instructions: As directed tramadol 50 mg tablet 100 mg PO Q4H PRN (Reason: Pain) buspirone 10 mg tablet 10 mg PO BID Qty: 60 3RF gabapentin 300 mg capsule 600 mg PO QID 30 Days Qty: 240 3RF topiramate [Topamax] 100 mg Tablet 300 mg PO DAILY cholecalciferol (vitamin D3) [Vitamin D3] 25 mcg (1,000 unit) Capsule 50 mcg PO DAILY ondansetron 4 mg tablet,disintegrating 4 mg PO Q8H PRN (Reason: nausea and vomiting) Qty: 14 0RF triamterene-hydrochlorothiazid 37.5-25 mg capsule 1 cap PO DAILY ondansetron 4 mg tablet,disintegrating 4 mg PO Q6H PRN (Reason: nausea and vomiting) Qty: 14 0RF trazodone 150 mg tablet 150 mg PO BEDTIME ibuprofen 600 mg tablet 600 mg PO Q6H PRN (Reason: pain) Qty: 20 0RF cyclobenzaprine 10 mg tablet 10 mg PO TID Qty: 14 0RF Medrol (Soto) 4 mg tablets,dose pack See Rx Instructions .ROUTE .COMPLEX Qty: 21 0RF Rx Instructions: orally per package directions Discharge Orders: Discharge ED (Routine); Ordered 05/01/23 Ordered By: Panchito Hussein Referrals: Joaquin Mak MD [Primary Care Provider] - Discharge Diet: Usual diet Discharge Activity: Resume usual activity Patient Instructions: Opioid Safety, Pain Management Activity Restrictions/Additional Instructions: Activity Restrictions/Additional Instructions: Thank you for choosing [facility] for your healthcare needs today. Please realize that you were seen in the Emergency Department and that we are providing you with an emergency medical screening exam and this may not be a complete and all inclusive of all the testing and or medical work-up that you may need to determine your ailment or severity of your illness. It is very important that you follow-up as instructed with your Primary care provider or Specialist for additional evaluation and to discuss your medical treatment plan. Coding Level of Care Code ED Repair Mechanic for Mark Berg
[2023-05-01 22:34] VITALS: BP 127/89; PULSE 112; RESP 20; O2SAT 99
== END 2023-05-01 22:35 | disposition home or self-care (01) ==
PROVIDERS: Emergency Provider Internal Medicine; PCP Family Medicine
DX: R00.2 Palpitations (principal)
CPT/HCPCS: 93005; 99283

== ENCOUNTER 2023-05-22 09:12 | Emergency (ER) | payer MEDICAID, SELFPAY ==
[2023-05-22 09:16] VITALS: BP 111/77; PULSE 108; RESP 16; TEMP 36.7; O2SAT 98; BMI 23.6
--- NOTE | 2023-05-22 10:05 | ED_ITS ---
HPI - Animal Bite General: Chief Complaint: Animal Bite Stated Complaint: cat bites and scratches Time Seen by Provider: 05/22/23 09:14 Source: patient Mode of arrival: ambulatory Limitations: no limitations History of Present Illness: Patient is a 32-year-old female presents to ED today for evaluation of cat bite and cat scratches mainly to her left forearm. Patient states she was playing with a known inside cat who is up-to-date on immunizations when the cat began scratching and biting her. She states there are a few bites that she is concerned with as they are draining a scant amount of purulent material. No streaking upper arm. No fevers. No other systemic symptoms. Bites were approximately 2 to 3 days ago. MD complaint: animal bite Onset (ago): day(s) Animal: cat Description of animal: household pet, immunizations UTD and appeared well Mechanism: bite and scratch Location - Extremities: Left: forearm Context: playing with animal Associated symptoms: Reports no associated symptoms; Deny chills, fever(s) or headache(s) Related Data: Patient tetanus UTD: Yes Review of Systems Const: Denies: fever(s), chills, body aches, fatigue or malaise GI: Denies: nausea, vomiting or diarrhea Musc: Reports: extremity pain (cat bite/scratches); Denies: neck pain, back pain, extremity swelling, joint pain or joint swelling Neuro: Denies: headache(s), numbness in extremities, weakness in extremities or sensory changes PFS ED PFSH: Medical History Vapes nicotine containing substance Seizures Hx of migraines Ovarian mass, right Family history of psoriasis in father High risk medication use Inflammatory back pain Inflammatory arthritis Psychiatric care 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 Mosher at [facility] History of tubal ligation 12/2015- per Dr. Mosher at [facility] H/O removal of cyst [address] Mosher Family History Mother Stroke Hyperlipidemia Family history of thyroid problem Hypertension Father Degenerative disc disease Diabetes Unknown Breast cancer maternal great aunt Grandmother Ovarian cancer maternal Uterine cancer maternal Other Cancer Chronic kidney disease (CKD) Rheumatoid arthritis Denies family history of Lupus Physical Exam Const: COMMON NORMALS: no acute distress, average body habitus, patient oriented x3, no limitations, alert and well nourished Extremity: COMMON NORMALS: full ROM, capillary refill normal, no joint enlargement and no clubbing, cyanosis or edema GENERAL: Yes normal exam except as noted LEFT UPPER EXTREMITY: Yes lower arm OTHER: multiple cat bite/scratches throughout L forearm-majority of them are very superficial and appear clean/non-infection; she has two small 1-2mm bite zarco one to volar aspect and other to dorsal aspect that have a very scant amount of purulent drainage with some mild induration-no abscess; no lymphangitic streaking Neuro: COMMON NORMALS: patient oriented x3, moves all extremities, no focal motor deficits and no sensory deficits noted SENSORIUM/ORIENTATION: Yes alert Skin: NARRATIVE SKIN EXAM: see above Course Vital Signs: Vital signs: Vital Signs Temperature 98.0 F 05/22/23 10:16 Pulse Rate 108 H 05/22/23 10:16 Respiratory Rate 16 05/22/23 10:16 Blood Pressure 111/77 05/22/23 10:16 Pulse Oximetry 98 05/22/23 10:16 Oxygen Delivery Me thod Room Air 05/22/23 09:16 MDM - Animal Bite Medical Decision Making Patient has an allergy to penicillins. She will be covered with Bactrim and Flagyl to cover for pasteurella multocida and anaerobes. Return to ED precautions given. Differential Diagnosis Likely bite by animal and cat bite No radiology studies performed this visit Discharge Plan Discharge Patient Disposition: Home Clinical Impression: Infected cat bite Qualifiers: Encounter type: initial encounter Qualified Code(s): W55.01XA - Bitten by cat, initial encounter Condition: Stable Prescriptions: New metronidazole 500 mg tablet 500 mg PO TID 7 Days Qty: 21 0RF Bactrim DS 800-160 mg tablet 1 tab PO BID 7 Days Qty: 14 0RF No Action cetirizine [Zyrtec] 10 mg tablet 10 mg PO DAILY Qty: 30 0RF sulfasalazine 500 mg tablet 0.5 g PO BID Qty: 60 3RF leflunomide 20 mg tablet 20 mg PO DAILY Qty: 30 3RF (DME) ASO to right See Rx Instructions .Route .MEDSUPPLY Qty: 1 0RF Rx Instructions: As directed (DME) CAM boot to right See Rx Instructions .Route .MEDSUPPLY Qty: 1 0RF Rx Instructions: As directed tramadol 50 mg tablet 100 mg PO Q4H PRN (Reason: Pain) buspirone 10 mg tablet 10 mg PO BID Qty: 60 3RF gabapentin 300 mg capsule 600 mg PO QID 30 Days Qty: 240 3RF topiramate [Topamax] 100 mg Tablet 300 mg PO DAILY cholecalciferol (vitamin D3) [Vitamin D3] 25 mcg (1,000 unit) Capsule 50 mcg PO DAILY ondansetron 4 mg tablet,disintegrating 4 mg PO Q8H PRN (Reason: nausea and vomiting) Qty: 14 0RF triamterene-hydrochlorothiazid 37.5-25 mg capsule 1 cap PO DAILY ondansetron 4 mg tablet,disintegrating 4 mg PO Q6H PRN (Reason: nausea and vomiting) Qty: 14 0RF trazodone 150 mg tablet 150 mg PO BEDTIME ibuprofen 600 mg tablet 600 mg PO Q6H PRN (Reason: pain) Qty: 20 0RF cyclobenzaprine 10 mg tablet 10 mg PO TID Qty: 14 0RF Medrol (Soto) 4 mg tablets,dose pack See Rx Instructions .ROUTE .COMPLEX Qty: 21 0RF Rx Instructions: orally per package directions Discharge Orders: Discharge ED (Routine); Ordered 05/22/23 Ordered By: Joann Hernandez Referrals: Joaquin Mak MD [Primary Care Provider] - Patient Instructions: Animal Bite (ED) Activity Restrictions/Additional Instructions: As we discussed start antibiotics immediately. You need to return to the emergency department for worsening redness, swelling, purulent drainage, streaking up your hand or arm, fevers, or any other concerns you may have. I hope you begin to feel better soon. Coding Level of Care Code ED Fruit Grader Operator for Mark Berg
[2023-05-22 10:16] VITALS: BP 111/77; PULSE 108; RESP 16; TEMP 36.7; O2SAT 98
== END 2023-05-22 10:17 | disposition home or self-care (01) ==
PROVIDERS: Emergency Provider Physician Assistant; PCP Family Medicine
DX: S51.852A Open bite of left forearm, initial encounter (principal); L08.9 Local infection of the skin and subcutaneous tissue, unspecified; W55.01XA Bitten by cat, initial encounter
CPT/HCPCS: 99283

== ENCOUNTER 2023-05-23 10:24 | Outpatient (CLI) | payer OTHER, MEDICAID, SELFPAY ==
--- NOTE | 2023-05-23 10:30 | XR_ITS ---
WS: [id number] Examination: XR lumbar spine 2-3V* [id number] Reason for Exam: BACK PAIN Date: May 23, 2023 Comparison: December 28, 2015 Findings: The pedicles and the bone density are intact. There is no wedging or compression Subtle L4-5 retrolisthesis is again identified. There is sacralization of L5 on the left. I suspect the L5-S1 disc is rudimentary Impression: There is no anterior wedging There is subtle retrolisthesis at L4-5
[2023-05-23 10:43] LABS: Basophils # 0.1 10^3/uL (0.0-0.1); Eosinophils # 0.3 10^3/uL (0.0-0.8); Hematocrit 43.1 % (36-47); Lymphocytes # 1.5 10^3/uL (0.8-4.8); Mean Corpuscular HGB Conc 32.9 g/dL (30-55); Mean Corpuscular Hemoglobin 30.9 pg (27-33); Mean Corpuscular Volume 93.7 fl (85-98); Mean Platelet Volume 10.4 fL (7.4-10.4); Monocytes # 0.7 10^3/uL (0.2-0.9); Monocytes % 11.9 %; Neutrophils % 56.9 %; Nucleated Red Blood Cells % 0 %; Platelet Count 286 10^3/cmm (157-399); Red Cell Distribution Width 13.1 % (12.1-15.1); White Blood Count 6.15 10^3/uL (3.29-11.43)
[2023-05-23 11:03] LABS: Alanine Aminotransferase 19 U/L (0-33); Albumin Level 4.5 g/dL (3.5-5.2); Alkaline Phosphatase 87 U/L (35-105); Aspartate Amino Transferase 19 U/L (0-32); Globulin 2.8 g/dL (1.3-4.6); Glomerular Filtration Rate 72.1 mL/min (90-130); Total Bilirubin 0.2 mg/dL (0.15-1.2); Total Protein 7.3 g/dL (6.6-8.7)
== END 2023-05-23 10:25 | disposition home or self-care (01) ==
PROVIDERS: Internal Medicine Rheumatology; PCP Family Medicine; Visit Provider Dermatology
DX: M54.9 Dorsalgia, unspecified (principal); M19.90 Unspecified osteoarthritis, unspecified site; Z79.899 Other long term (current) drug therapy; M43.16 Spondylolisthesis, lumbar region
CPT/HCPCS: 36415; 72100; 80076; 82565; 85025; 86140

== ENCOUNTER 2023-06-03 11:44 | Emergency (ER) | payer MEDICAID, SELFPAY ==
[2023-06-03 11:54] VITALS: BP 108/77; PULSE 104; RESP 16; TEMP 37; BMI 25.2
--- NOTE | 2023-06-03 12:18 | ED_ITS ---
HPI - Back Pain/Injury 2 General: Chief Complaint: Back Pain/Injury Stated Complaint: back pain Time Seen by Provider: 06/03/23 12:05 History of Present Illness: 32-year-old female who [facility] with low back pain. Says this has been present for several days. She said it is worse with movement. However she has some radiation down into her groin. Some nausea. She says it hurts whenever she breathes deeply. No fevers. No cough. Review of Systems 2 Narrative: Constitutional symptoms: Negative except as documented in HPI. Skin symptoms: Negative except as documented in HPI. Eye symptoms: Negative except as documented in HPI. ENMT symptoms: Negative except as documented in HPI. Respiratory symptoms: Negative except as documented in HPI. Cardiovascular symptoms: Negative except as documented in HPI. Gastrointestinal symptoms: Negative except as documented in HPI. Genitourinary symptoms: Negative except as documented in HPI. Musculoskeletal symptoms: Negative except as documented in HPI. Neurologic symptoms: Negative except as documented in HPI. Psychiatric symptoms: Negative except as documented in HPI. Endocrine symptoms: Negative except as documented in HPI. 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 Mosher at [facility] History of tubal ligation 12/2015- per Dr. Mosher at [facility] H/O removal of cyst [address] Mosher Family History Mother Stroke Hyperlipidemia Family history of thyroid problem Hypertension Father Degenerative disc disease Diabetes Unknown Breast cancer maternal great aunt Grandmother Ovarian cancer maternal Uterine cancer maternal Other Cancer Chronic kidney disease (CKD) Rheumatoid arthritis Denies family history of Lupus Physical Exam 2 Narrative: EXAM NARRATIVE: General: Alert, no acute distress. Head: Normocephalic Neck: Trachea midline Eye: Extraocular movements are intact. Ears, nose, mouth and throat: Oral mucosa moist Respiratory: Respirations are non-labored Musculoskeletal: Normal ROM Back: no step off, no focal tenderness, some paraspinal muscle tenderness Neurological: Alert and oriented to person, place, time, and situation, No focal neurological deficit observed. Psychiatric: Cooperative, appropriate mood & affect. Course 2 Vital Signs: Vital signs: Vital Signs Temperature 98.6 F 06/03/23 11:54 Pulse Rate 104 H 06/03/23 11:54 Respiratory Rate 16 06/03/23 11:54 Blood Pressure 108/77 06/03/23 11:54 Oxygen Delivery Me thod Room Air 06/03/23 11:54 MDM - Back Pain/Injury Medical Decision Making Medical decision making: Differential diagnosis for this patient who presents with flank pain including but not limited to and based on the above HPI, review of systems and physical exam: Ureterolithiasis. Urinary tract infection. Appendicitis. Cholecystis. Musculoskeletal / back pain. Pyelonephritis Orders placed to evaluate differential diagnosis based on the above differential, HPI and physical exam Lab Review: Laboratory results were reviewed and interpreted by myself the emergency room physician. Lab work is fairly unremarkable. No leukocytosis. No renal failure. She does have a few red cells in few whites in her urine so CT scan was ordered. CT of the abdomen pelvis without contrast: To rule out kidney stones or other pathology. This was negative for any acute process. I reviewed and interpreted this personally also reviewed the radiology report. I reviewed the patient's medical record. Reexamination: Patient has received Norflex, Toradol and Rocephin. She appears somewhat improved. No increased work of breathing. No altered mental status. Labs 06/03/23 12:39 06/03/23 12:39 Radiology Impressions Abdomen/Pelvis CT 06/03/23 13:40 IMPRESSION: 1. Limited noncontrast examination without CT evidence of acute intra-abdominal or pelvic pathology. 2. Additional findings, as above. Laboratory Results WBC 5.55 10^3/uL (3.29-11.43) 06/03/23 12:39 RBC 5.50 10^6/uL (3.85-5.65) 06/03/23 12:39 Hgb 16.80 g/dL (11.27-16.99) 06/03/23 12:39 Hct 50.3 % (36-47) H 06/03/23 12:39 MCV 91.5 fl (85-98) 06/03/23 12:39 MCH 30.5 pg (27-33) 06/03/23 12:39 MCHC 33.4 g/dL (30-55) 06/03/23 12:39 RDW 12.8 % (12.1-15.1) 06/03/23 12:39 Plt Count 316 10^3/cmm (157-399) 06/03/23 12:39 MPV 10.6 fL (7.4-10.4) H 06/03/23 12:39 Neut % (Auto) 56.9 % 06/03/23 12:39 Lymph % (Auto) 25.6 % 06/03/23 12:39 Power % (Auto) 12.4 % 06/03/23 12:39 Eos % (Auto) 3.8 % 06/03/23 12:39 Baso % (Auto) 0.9 % 06/03/23 12:39 Neut # (Auto) 3.16 10^3/uL (1.8-7.7) 06/03/23 12:39 Lymph # (Auto) 1.4 10^3/uL (0.8-4.8) 06/03/23 12:39 Power # (Auto) 0.7 10^3/uL (0.2-0.9) 06/03/23 12:39 Eos # (Auto) 0.2 10^3/uL (0.0-0.8) 06/03/23 12:39 Baso # (Auto) 0.1 10^3/uL (0.0-0.1) 06/03/23 12:39 Nucleated RBC % (auto) 0 % 06/03/23 12:39 Nucleated RBCs # 0.0 /100WBC 06/03/23 12:39 Sodium 137 mmol/L (136-145) 06/03/23 12:39 Potassium 3.7 mmol/L (3.5-5.1) 06/03/23 12:39 Chloride 102 mmol/L (98-107) 06/03/23 12:39 Carbon Dioxide 20 mmol/L (22-29) L 06/03/23 12:39 Anion Gap 18.7 (5-19) 06/03/23 12:39 BUN 10 mg/dL (6-20) 06/03/23 12:39 Creatinine 0.7 mg/dL (0.5-0.9) 06/03/23 12:39 GFR Calculation 96.4 mL/min (90-130) 06/03/23 12:39 Glucose 114 mg/dL (65-115) 06/03/23 12:39 Calculated Osmolality 284 mOsm/kg (285-295) L 06/03/23 12:39 Calcium 9.7 mg/dL (8.5-10.5) 06/03/23 12:39 Total Bilirubin 0.4 mg/dL (0.15-1.2) 06/03/23 12:39 AST 30 U/L (0-32) 06/03/23 12:39 ALT 55 U/L (0-33) H 06/03/23 12:39 Alkaline Phosphatase 95 U/L (35-105) 06/03/23 12:39 C-Reactive Protein 3.0 mg/L (0.0-4.9) 06/03/23 12:39 Total Protein 7.9 g/dL (6.6-8.7) 06/03/23 12:39 Albumin 4.7 g/dL (3.5-5.2) 06/03/23 12:39 Globulin 3.2 g/dL (1.3-4.6) 06/03/23 12:39 HCG, Qual Negative (Negative) 06/03/23 12:43 Urine Color Yellow (Yellow) 06/03/23 12:43 Urine Appearance Clear (CLEAR) 06/03/23 12:43 Urine pH 7 (5-7) 06/03/23 12:43 Ur Specific [place] 1.010 (1.005-1.030) 06/03/23 12:43 Urine Protein Neg (Negative) 06/03/23 12:43 Urine Glucose (UA) Norm (Normal) 06/03/23 12:43 Urine Ketones 1+ (Negative) H 06/03/23 12:43 Urine Blood 2+ (Negative) H 06/03/23 12:43 Urine Nitrate Negative (Negative) 06/03/23 12:43 Urine Bilirubin Neg (Negative) 06/03/23 12:43 Urine Urobilinogen Norm mg/dL (Negative) 06/03/23 12:43 Ur Leukocyte Esterase Negative (Negative) 06/03/23 12:43 Urine RBC 0-4 /hpf (0-2) H 06/03/23 12:43 Urine WBC 0-4 /hpf (0-5) H 06/03/23 12:43 Ur Squamous Epith Cells 5-10 /hpf (0-5) H 06/03/23 12:43 Amorphous Sediment Not Reportable 06/03/23 12:43 Urine Bacteria 1+ /hpf (NONE) H 06/03/23 12:43 Urine Opiates Screen Negative ng/mL (Negative) 06/03/23 12:43 Ur Barbiturates Screen Negative ng/mL (Negative) 06/03/23 12:43 Ur Phencyclidine Scrn Negative ng/mL (Negative) 06/03/23 12:43 Ur Amphetamines Screen Negative ng/mL (Negative) 06/03/23 12:43 U Benzodiazepines Scrn Negative ng/mL (Negative) 06/03/23 12:43 Urine Cocaine Screen Negative ng/mL (Negative) 06/03/23 12:43 U Marijuana (THC) Screen Negative ng/mL (Negative) 06/03/23 12:43 All radiology interpretation(s) finalized by discharge Other Data Assessment and plan: Urinary tract infection Musculoskeletal back pain -IV Rocephin, IV Toradol and IV Norflex. - Discharged home - Discussed findings and plan with patient. Answered any questions. - All laboratory values were reviewed and interpreted personally by myself, the ER physician - All imaging was reviewed and interpreted personally by myself, the ER physician. - Evaluation and treatment of this problem were appropriate in the emergency setting Discharge Plan Discharge Patient Disposition: Home Clinical Impression: Urinary tract infection, Low back pain Condition: Stable Prescriptions: New cyclobenzaprine 10 mg tablet 10 mg PO Q8H Qty: 20 0RF diclofenac potassium 50 mg tablet 50 mg PO BID PRN (Reason: pain) Qty: 20 0RF cefdinir 300 mg capsule 300 mg PO BID 5 Days Qty: 10 0RF No Action cetirizine [Zyrtec] 10 mg tablet 10 mg PO DAILY Qty: 30 0RF sulfasalazine 500 mg tablet 0.5 g PO BID Qty: 60 3RF leflunomide 20 mg tablet 20 mg PO DAILY Qty: 30 3RF (DME) ASO to right See Rx Instructions .Route .MEDSUPPLY Qty: 1 0RF Rx Instructions: As directed (DME) CAM boot to right See Rx Instructions .Route .MEDSUPPLY Qty: 1 0RF Rx Instructions: As directed tramadol 50 mg tablet 100 mg PO Q4H PRN (Reason: Pain) buspirone 10 mg tablet 10 mg PO BID Qty: 60 3RF gabapentin 300 mg capsule 600 mg PO QID 30 Days Qty: 240 3RF topiramate [Topamax] 100 mg Tablet 300 mg PO DAILY cholecalciferol (vitamin D3) [Vitamin D3] 25 mcg (1,000 unit) Capsule 50 mcg PO DAILY ondansetron 4 mg tablet,disintegrating 4 mg PO Q8H PRN (Reason: nausea and vomiting) Qty: 14 0RF triamterene-hydrochlorothiazid 37.5-25 mg capsule 1 cap PO DAILY ondansetron 4 mg tablet,disintegrating 4 mg PO Q6H PRN (Reason: nausea and vomiting) Qty: 14 0RF trazodone 150 mg tablet 150 mg PO BEDTIME ibuprofen 600 mg tablet 600 mg PO Q6H PRN (Reason: pain) Qty: 20 0RF cyclobenzaprine 10 mg tablet 10 mg PO TID Qty: 14 0RF Medrol (Soto) 4 mg tablets,dose pack See Rx Instructions .ROUTE .COMPLEX Qty: 21 0RF Rx Instructions: orally per package directions Discharge Orders: Discharge ED (Routine); Ordered 06/03/23 Ordered By: Giulia Torres Referrals: Joaquin Mak MD [Primary Care Provider] - (You have been screened and evaluated and felt safe for discharge. Health conditions do change or evolve sometimes and as such it is important that you follow up with your Primary Doctor to be re checked, 3-5 days is a general good time frame for follow up. You are always welcome to return to the ED for re assessment if your symptoms are worsening or you have new concerns) Patient Instructions: Urinary Tract Infection in Women (ED), Back Pain (ED) Coding Level of Care Code ED Log Carrier Operator for Mark Berg
[2023-06-03 12:52] LABS: Basophils # 0.1 10^3/uL (0.0-0.1); Basophils % 0.9 %; Eosinophils # 0.2 10^3/uL (0.0-0.8); Eosinophils % 3.8 %; Hematocrit 50.3 % (36-47); Lymphocytes # 1.4 10^3/uL (0.8-4.8); Lymphocytes % 25.6 %; Mean Corpuscular HGB Conc 33.4 g/dL (30-55); Mean Corpuscular Hemoglobin 30.5 pg (27-33); Mean Corpuscular Volume 91.5 fl (85-98); Mean Platelet Volume 10.6 fL (7.4-10.4); Monocytes # 0.7 10^3/uL (0.2-0.9); Monocytes % 12.4 %; Neutrophils # 3.16 10^3/uL (1.8-7.7); Neutrophils % 56.9 %; Nucleated Red Blood Cells % 0 %; Platelet Count 316 10^3/cmm (157-399); Red Cell Distribution Width 12.8 % (12.1-15.1); White Blood Count 5.55 10^3/uL (3.29-11.43)
[2023-06-03] MEDS: ketorolac 30 mg/mL INJ IVP (12:57)
[2023-06-03] MEDS: orphenadrine 30 mg/mL Inj 2 mL 60 MG IVP (12:58)
[2023-06-03 13:15] LABS: Alanine Aminotransferase 55 U/L (0-33); Albumin Level 4.7 g/dL (3.5-5.2); Alkaline Phosphatase 95 U/L (35-105); Anion Gap 18.7 (5-19); Aspartate Amino Transferase 30 U/L (0-32); Blood Urea Nitrogen 10 mg/dL (6-20); Calcium 9.7 mg/dL (8.5-10.5); Carbon Dioxide 20 mmol/L (22-29); Chloride 102 mmol/L (98-107); Creatinine Clr Calc Pharmacy 102.3169; Globulin 3.2 g/dL (1.3-4.6); Glomerular Filtration Rate 96.4 mL/min (90-130); Glucose 114 mg/dL (65-115); Osmolality Calculated 284 mOsm/kg (285-295); Potassium 3.7 mmol/L (3.5-5.1); Sodium 137 mmol/L (136-145); Total Bilirubin 0.4 mg/dL (0.15-1.2); Total Protein 7.9 g/dL (6.6-8.7)
[2023-06-03 13:17] LABS: Amphetamines Screen Urine Negative (Negative); Barbiturates Screen Urine Negative (Negative); Benzodiazepines Screen Urine Negative (Negative); Cocaine Screen Urine Negative (Negative); Opiate Screen Urine Negative (Negative); PCP Screen Urine Negative (Negative); THC Screen Urine Negative (Negative)
[2023-06-03 13:24] LABS: Add Urine Culture? No; Bacteria Urine 1+ /hpf; Bilirubin Urine Neg (Negative); Blood Urine 2+ (Negative); Glucose Urine UA Norm (Normal); Ketones Urine 1+ (Negative); Leukocyte Esterase Urine Negative (Negative); Nitrate Urine Negative (Negative); Protein Urine Neg (Negative); RBC Urine 0-4 /hpf (0-2); Urine Appearance Clear (CLEAR); Urine Color Yellow (Yellow); Urobilinogen Urine Norm (Negative); WBC Urine 0-4 /hpf (0-5); pH Urine 7 (5-7)
--- NOTE | 2023-06-03 13:40 | CTR_ITS ---
PROCEDURE INFORMATION: Exam: CT Abdomen And Pelvis Without Contrast Exam date and time: 06/03/2023 1:48 PM Age: 32 years old Clinical indication: Abdominal pain; Generalized; Prior surgery; Surgery date: 6+ months; Surgery type: Gb, hyster; Additional info: Flank and back pain, hematuria TECHNIQUE: Imaging protocol: Computed tomography of the abdomen and pelvis without contrast. Axial, coronal and sagittal reformatted images were created and reviewed. Radiation optimization: All CT scans at this facility use at least one of these dose optimization techniques: automated exposure control; mA and/or kV adjustment per patient size (includes targeted exams where dose is matched to clinical indication); or iterative reconstruction. COMPARISON: CT abdomen pelvis w con* [id number] 02/09/2023 11:05 PM RADIATION DOSE METRICS: Total DLP (mGy-cm): 301.86 FINDINGS: Liver: Unremarkable. Gallbladder and bile ducts: Status post cholecystectomy. No biliary ductal dilatation. Pancreas: Unremarkable. Spleen: Unremarkable. Adrenal glands: Normal. No mass. Kidneys and ureters: No mass. No radiodense calculi. No hydronephrosis. Stomach and bowel: No bowel wall thickening. No obstruction. No pneumatosis. Appendix: Normal. Intraperitoneal space: No free fluid. No organized fluid collection. No free air. Vasculature: Unremarkable. No aneurysm. Lymph nodes: No pathologically enlarged lymph nodes. Urinary bladder: Unremarkable as visualized. Reproductive: 2.9 x 2.7 cm left adnexal cystic lesion, likely a follicular cyst. Status post hysterectomy. Bones/joints: No acute osseous abnormality. Soft tissues: Unremarkable. CT/CT abdomen pelvis con [id number] IMPRESSION: 1. Limited noncontrast examination without CT evidence of acute intra-abdominal or pelvic pathology. 2. Additional findings, as above.
[2023-06-03 13:56] LABS: HCG Qualitative Urine. Negative (Negative)
[2023-06-03] MEDS: cefTRIAXone 1,000 MG in sodium chloride 0.9% (plus) 50 ML 100 MG IV (14:36)
[2023-06-03 14:41] VITALS: RESP 16; O2SAT 97
[2023-06-03] MEDS: HYDROmorphone 1 mg/mL INJ 1 mL IVP (14:41)
[2023-06-03] MEDS: dexamethasone 10 mg/mL INJ IVP (14:41)
[2023-06-03 14:45] VITALS: BP 120/97; PULSE 75; RESP 17; O2SAT 98
[2023-06-03 15:34] VITALS: BP 116/78; PULSE 91; RESP 16; O2SAT 99
== END 2023-06-03 15:31 | disposition home or self-care (01) ==
PROVIDERS: Emergency Provider Emergency Medicine; PCP Family Medicine
DX: N39.0 Urinary tract infection, site not specified (principal); M54.50 Low back pain, unspecified
CPT/HCPCS: 74176; 80053; 80306; 81001; 81025; 85025; 86140; 96365; 96375; 99285; J0696; J1100; J1170; J1885; J2360

== ENCOUNTER → 2023-06-28 08:58 | Outpatient (BNVA) | payer MEDICAID, SELFPAY | PROVIDERS: PCP Family Medicine; Referring Provider Family Medicine; Visit Provider Physician Assistant | DX: M23.304 Other meniscus derangements, unspecified medial meniscus, left knee | CPT/HCPCS: 73560; 73565 ==

== ENCOUNTER → 2023-07-10 15:49 | Outpatient (BNVA) | payer MEDICAID, SELFPAY | PROVIDERS: PCP Family Medicine; Visit Provider Orthopaedic Surgery | DX: M54.2 Cervicalgia (principal) | CPT/HCPCS: 72050 ==

== ENCOUNTER → 2023-07-17 14:50 | Outpatient (BNVA) | payer MEDICAID, SELFPAY | PROVIDERS: PCP Family Medicine; Visit Provider Physician Assistant | DX: M25.512 Pain in left shoulder (principal); M75.42 Impingement syndrome of left shoulder | CPT/HCPCS: 73030 ==

== ENCOUNTER 2023-07-19 06:00 | Outpatient (RCR) | payer MEDICAID, SELFPAY | END 2023-07-20 23:59 | disposition home or self-care (01) | LOC: SPT 06:00 | PROVIDERS: PCP Family Medicine; Visit Provider General Practice | DX: G89.4 Chronic pain syndrome (principal) | CPT/HCPCS: 97161 ==

== ENCOUNTER 2023-07-24 06:51 | Outpatient (CLI) | payer MEDICAID, SELFPAY ==
--- NOTE | 2023-07-24 07:15 | MR_ITS ---
WS: [id number] MRI LEFT KNEE NONCONTRAST TECHNIQUE: Axial PD, coronal PD fat sat, coronal PD, sagittal PD, and sagittal PD fat-sat images obta ined. CLINICAL INFORMATION: Left knee pain COMPARISON: None. FINDINGS: Distal quadriceps and patella tendons are intact. Normal ACL and PCL. Normal bone marrow signal in th e femoral condyles and tibial plateau. Normal bone marrow signal in the patella. No acute fractures. Medial and lateral collateral ligaments are intact. Normal popliteus. Elongated popliteal cyst measur ing 0.5 x 4.1 cm AP by craniocaudal. No acute appearing meniscal tears. Mild chronic thinning of the medial and lateral meniscus. Mild per ipheral extrusion of the lateral meniscus. Mild chondromalacia patella. Normal medial and lateral pat ellar retinaculum. Tiny suprapatellar effusion. No other acute findings. MR/MR knee LT wo con* [id number] IMPRESSION: 1. ACL and PCL are intact. 2. Normal medial and lateral collateral ligaments. 3. Lobulated popliteal cyst measuring 0.5 x 4.1 cm AP by craniocaudal. 4. Mild chondromalacia patella. 5. Mild chronic thinning of the medial and lateral meniscus. No acute appearin g meniscal tears. Slight peripheral extrusion of the lateral meniscus. 6. No other acute findings. Outbridge grading: grade II: blister-like swelling/fraying of articular cartila ge extending to surface
== END 2023-07-24 06:52 | disposition home or self-care (01) ==
LOC: RAD 06:51
PROVIDERS: PCP Family Medicine; Visit Provider Physician Assistant
DX: M71.22 Synovial cyst of popliteal space [Baker], left knee (principal); M22.42 Chondromalacia patellae, left knee
CPT/HCPCS: 73721

== ENCOUNTER 2023-08-04 07:24 | Inpatient (IN) | payer MEDICAID, SELFPAY ==
[2023-08-04] VITALS (20 sets, daily range): BP systolic 110–136; BP diastolic 75–93; PULSE 78–91; RESP 16–17; TEMP 36.4–36.8; O2SAT 96–99
--- NOTE | 2023-08-04 07:53 | ED_ITS ---
HPI - Abdominal Pain 2 General: Chief Complaint: Abdominal Pain Stated Complaint: Stomach pain Time Seen by Provider: 08/04/23 07:33 Source: patient Mode of arrival: ambulatory History of Present Illness: 32-year-old female presents to the [facility] room with complaints of abdominal pain. She has had abdominal pain that began last week she went and seen her primary care doctor they did some x-rays which she is unsure of the results. She states she has some diarrhea with that as well she denies hematochezia melena hematemesis or coffee-ground emesis. She has had some mild dysuria. Denies any hematuria. MD elicited complaint: abdominal pain Onset (ago): week(s) (1) Location: LLQ Severity: moderate Quality: cramping Exacerbating factors: nothing Relieving factors: nothing Associated Symptoms: Reports diarrhea, nausea and poor appetite; Denies anorexia, belching, bloating, change in bowel habits, change in stool character, chills, coffee ground emesis, constipation, GI cramping, dyspepsia, dysuria, excessive flatus, fever(s), heartburn, hematochezia, hematuria, hematemesis, fecal incontinence, loose stools, melena, syncope and vomiting Review of Systems 2 Const: Denies: fever(s) or chills Card: Denies: chest pain or syncope Resp: Denies: dyspnea GI: Reports: abdominal pain, nausea and diarrhea; Denies: vomiting, hematemesis, coffee ground emesis, heartburn, constipation, bloating, GI cramping, belching, excessive flatus, fecal incontinence, change in bowel habits, change in stool character, hematochezia or melena : Denies: dysuria, urinary frequency, urinary urgency or hematuria Musc: Denies: neck pain or back pain Skin/Breast: Denies: rash PFSH ED 2 PFSH: Medical History Vapes nicotine containing substance Seizures Hx of migraines Ovarian mass, right Family history of psoriasis in father High risk medication use Inflammatory back pain Inflammatory arthritis Psychiatric care Other alf (current) drug therapy Anxiety Bipolar disorder, unspecified Acute abscess of female pelvis Abnormal uterine bleeding (AUB) Abnormal Papanicolaou smear of cervix with positive human papilloma virus (HPV) test Endometriosis determined by laparoscopy Surgical History History of cholecystectomy History of hysterectomy History of laparoscopy 2010-for endometriosis 2015- for Mirena removal 01/17/2017-performed by Dr. Mosher at [facility] History of tubal ligation 12/2015- per Dr. Mosher at [facility] H/O removal of cyst [address] Mosher Family History Mother Stroke Hyperlipidemia Family history of thyroid problem Hypertension Father Degenerative disc disease Diabetes Unknown Breast cancer maternal great aunt Grandmother Ovarian cancer maternal Uterine cancer maternal Other Cancer Chronic kidney disease (CKD) Rheumatoid arthritis Denies family history of Lupus Social History Smoking and tobacco/nicotine status: former use of tobacco/nicotine Second hand smoke exposure: No Alcohol intake: never Substance/Drug Use: never Physical Exam 2 Const: GENERAL APPEARANCE: cooperative and comfortable O RIENTATION/CONSCIOUSNESS: Yes awake, Yes oriented to person, Yes oriented to place and Yes oriented to time HENMT: COMMON NORMALS: normocephalic, atraumatic and hearing grossly normal bilaterally HEAD & SCALP: normocephalic and atraumatic Resp: COMMON NORMALS: normal respiratory effort, No retractions, No use of accessory muscles and clear to auscultation bilaterally AUSCULTATION: clear to auscultation bilaterally Cardio: COMMON NORMALS: regular rate, regular rhythm and No murmurs present (Cardio) RATE: regular rate RHYTHM: regular rhythm GI: COMMON NORMALS: No hepatosplenomegaly present AUSCULTATION: Yes normoactive bowel sounds PALPATION: Yes Tenderness to palpation present (GI) Details: LLQ, No Guarding due to palpation present (GI) and Yes No hepatosplenomegaly present Extremity: COMMON NORMALS: normal to inspection, capillary refill normal, no clubbing, cyanosis or edema, no calf tenderness and no pedal edema Neuro: SENSORIUM/ORIENTATION: Yes oriented to person, Yes oriented to place and Yes oriented to time Skin: COMMON NORMALS: no rashes or lesions noted GENERAL SKIN EXAM: no rashes or lesions noted Course 2 Vital Signs: Vital signs: Vital Signs Temperature 97.6 F 08/04/23 07:37 Pulse Rate 78 08/04/23 07:37 Respiratory Rate 16 08/04/23 10:07 Blood Pressure 125/78 08/04/23 14:00 Pulse Oximetry 97 08/04/23 14:00 Oxygen Delivery Me thod Room Air 08/04/23 07:37 MDM - Abdominal Pain Medical Decision Making Patient initially presents with left-sided abdominal pain she had sudden sided left upper quadrant pain when I seen her initially. The nurses note she had left lower quadrant pain in any event on evaluation of the abdomen by CT there is a question of pulmonary infarct CTA was done and showed bilateral pulmonary infarcts. In talking the patient further with the last several weeks she has had episodes of chest discomfort and sudden shortness of breath she had relegated it to anxiety attacks. Actually been quite disruptive to her life she states her and her boyfriend actually broke up over the issue. She did not speak of it earlier or to her primary care doctor because she thought it was just anxiety attack and was focused more on the abdominal discomfort. I suspect her abdominal discomfort is referred pain from the pulmonary infarct. There is no other acute abdominal pathology. There is no sign of right heart strain her troponin and her BNP are normal. We do not have a source of her DVT and with the infarct we elected to admit the patient on heparin further evaluation including ultrasound of the lower extremities for DVT. Discussed with hospitalist orders written Medical Records I reviewed the patient's medical records. Lab Data I reviewed the patient's lab results. 08/04/23 08:02 08/04/23 08:02 Labs/Radiology: Radiology Impressions Abdomen/Pelvis CT 08/04/23 07:58 IMPRESSION: 1. No acute findings within the abdomen or pelvis. 2. Mild smooth bladder wall thickening, nonspecific. Please correlate for possible cystitis. 3. 2.3 cm left ovarian cyst decreased in size presumed functional in nature. 4. Interval development of nonspecific peripheral consolidation left lung base that may be secondary to subsegmental atelectasis with pulmonary infarct to be excluded. Consider follow-up CTA chest for clarification. Chest CTA 08/04/23 10:13 IMPRESSION: 1. Findings consistent with acute pulmonary embolism involving portion the right main pulmonary artery and segmental branches of the right left pulmonary arteries. Overall thrombus burden deemed mild-moderate. No evidence of RV strain. 2. Small peripheral consolidation left lower lobe likely in part secondary to pulmonary infarct. ADDENDUM: 08/04/23 1156 THIS REPORT CONTAINS FINDINGS THAT MAY BE CRITICAL TO PATIENT CARE. The findings were verbally communicated via telephone conference with WINDY Herrera at 11:55 AM CDT on 08/04/2023. The findings were acknowledged and understood. Venous Duplex 08/04/23 12:46 IMPRESSION: No evidence of deep vein thrombosis. Laboratory Results WBC 5.55 10^3/uL (3.29-11.43) 08/04/23 08:02 RBC 4.28 10^6/uL (3.85-5.65) 08/04/23 08:02 Hgb 13.10 g/dL (11.27-16.99) 08/04/23 08:02 Hct 40.4 % (36-47) 08/04/23 08:02 MCV 94.4 fl (85-98) 08/04/23 08:02 MCH 30.6 pg (27-33) 08/04/23 08:02 MCHC 32.4 g/dL (30-55) 08/04/23 08:02 RDW 13.3 % (12.1-15.1) 08/04/23 08:02 Plt Count 359 10^3/cmm (157-399) 08/04/23 08:02 MPV 10.2 fL (7.4-10.4) 08/04/23 08:02 Neut % (Auto) 59.0 % 08/04/23 08:02 Lymph % (Auto) 30.5 % 08/04/23 08:02 [place] % (Auto) 6.7 % 08/04/23 08:02 Eos % (Auto) 2.7 % 08/04/23 08:02 Baso % (Auto) 0.9 % 08/04/23 08:02 Neut # (Auto) 3.28 10^3/uL (1.8-7.7) 08/04/23 08:02 Lymph # (Auto) 1.7 10^3/uL (0.8-4.8) 08/04/23 08:02 [place] # (Auto) 0.4 10^3/uL (0.2-0.9) 08/04/23 08:02 Eos # (Auto) 0.2 10^3/uL (0.0-0.8) 08/04/23 08:02 Baso # (Auto) 0.1 10^3/uL (0.0-0.1) 08/04/23 08:02 Nucleated RBC % (auto) 0 % 08/04/23 08:02 Nucleated RBCs # 0.0 /100WBC 08/04/23 08:02 ESR 64 mm/hr (0-15) H 08/04/23 08:02 Sodium 143 mmol/L (136-145) 08/04/23 08:02 Potassium 3.6 mmol/L (3.5-5.1) 08/04/23 08:02 Chloride 114 mmol/L (98-107) H 08/04/23 08:02 Carbon Dioxide 19 mmol/L (22-29) L 08/04/23 08:02 Anion Gap 13.6 (5-19) 08/04/23 08:02 BUN 15 mg/dL (6-20) 08/04/23 08:02 Creatinine 0.6 mg/dL (0.5-0.9) 08/04/23 08:02 GFR Calculation 115.1 mL/min (90-130) 08/04/23 08:02 Glucose 95 mg/dL (65-115) 08/04/23 08:02 Calculated Osmolality 297 mOsm/kg (285-295) H 08/04/23 08:02 Lactic Acid 0.5 mmol/L (0.5-2.2) 08/04/23 08:02 Calcium 9.2 mg/dL (8.5-10.5) 08/04/23 08:02 Total Bilirubin 0.4 mg/dL (0.15-1.2) 08/04/23 08:02 AST 33 U/L (0-32) H 08/04/23 08:02 ALT 133 U/L (0-33) H 08/04/23 08:02 Alkaline Phosphatase 259 U/L (35-105) H 08/04/23 08:02 Troponin T Baseline < 6 ng/L (0-10) 08/04/23 11:21 Troponin T 120 Minute 6.00 ng/L (0-10) 08/04/23 14:10 Delta Troponin T 0.35688 ABS# (0-10) 08/04/23 14:10 C-Reactive Protein 3.0 mg/L (0.0-4.9) 08/04/23 11:21 NT-Pro-B Natriuret Pep < 36 pg/mL (0-125) 08/04/23 11:21 Total Protein 7.2 g/dL (6.6-8.7) 08/04/23 08:02 Albumin 4.0 g/dL (3.5-5.2) 08/04/23 08:02 Globulin 3.2 g/dL (1.3-4.6) 08/04/23 08:02 CA 125 Antigen 22.6 U/mL (0-35) 08/04/23 08:02 HCG, Qual Negative (Negative) 08/04/23 08:02 Urine Color Yellow (Yellow) 08/04/23 09:10 Urine Appearance Clear (CLEAR) 08/04/23 09:10 Urine pH 5 (5-7) 08/04/23 09:10 Ur Specific [place] 1.015 (1.005-1.030) 08/04/23 09:10 Urine Protein Neg (Negative) 08/04/23 09:10 Urine Glucose (UA) Norm (Normal) 08/04/23 09:10 Urine Ketones Negative (Negative) 08/04/23 09:10 Urine Blood Neg (Negative) 08/04/23 09:10 Urine Nitrate Negative (Negative) 08/04/23 09:10 Urine Bilirubin Neg (Negative) 08/04/23 09:10 Urine Urobilinogen Norm mg/dL (Negative) 08/04/23 09:10 Ur Leukocyte Esterase Negative (Negative) 08/04/23 09:10 Hepatitis A IgM Ab Non-reactive (Nonreactive) 08/04/23 08:02 Hep Bs Antigen Non-reactive (Nonreactive) 08/04/23 08:02 Hep B Core IgM Ab Non-reactive (Nonreactive) 08/04/23 08:02 Hepatitis C Antibody Non-reactive (Nonreactive) 08/04/23 08:02 All radiology interpretation(s) finalized by discharge Discharge Plan Discharge Patient Disposition: Admitted As Inpatient Clinical Impression: Bilateral pulmonary embolism, Transaminitis, Pulmonary infarct Condition: Stable Coding Level of Care Code ED Athletic Scout for Mark Berg
--- NOTE | 2023-08-04 07:58 | CTR_ITS ---
PROCEDURE INFORMATION: Exam: CT Abdomen And Pelvis Without Contrast Exam date and time: 08/04/2023 8:22 AM Age: 32 years old Clinical indication: Abdominal pain TECHNIQUE: Imaging protocol: Computed tomography of the abdomen and pelvis without contrast. Radiation optimization: All CT scans at this facility use at least one of these dose optimization techniques: automated exposure control; mA and/or kV adjustment per patient size (includes targeted exams where dose is matched to clinical indication); or iterative reconstruction. COMPARISON: CT abdomen pelvis con [id number] 06/03/2023 1:48 PM RADIATION DOSE METRICS: Total DLP (mGy-cm): 351.72 FINDINGS: Lungs: Small somewhat wedge-shaped area of consolidation peripherally at the left lung base developed from prior study. That may represent a subsegmental atelectasis with pulmonary infarct to be excluded. Liver: Normal. No mass. Gallbladder and bile ducts: Gallbladder has been removed. Bile ducts are not appreciably dilated. Pancreas: Unremarkable. Main pancreatic duct is not significantly dilated. Spleen: Normal. No splenomegaly. Adrenal glands: Normal. No mass. Kidneys and ureters: Normal. No hydronephrosis. Stomach and bowel: Unremarkable. No obstruction. No mucosal thickening. Appendix: No evidence of appendicitis. Intraperitoneal space: Unremarkable. No free air. No significant fluid collection. Vasculature: Unremarkable. No abdominal aortic aneurysm. Lymph nodes: Unremarkable. No enlarged lymph nodes. Urinary bladder: Mild smooth bladder wall thickening unchanged, nonspecific. Reproductive: Uterus has been removed. 2.3 cm left ovarian cyst slightly decreased in size from prior study which in view of patient's age is likely functional in nature. Bones/joints: Unremarkable. No acute fracture. Soft tissues: Unremarkable. CT/CT abdomen pelvis [facility] [id number] IMPRESSION: 1. No acute findings within the abdomen or pelvis. 2. Mild smooth bladder wall thickening, nonspecific. Please correlate for possible cystitis. 3. 2.3 cm left ovarian cyst decreased in size presumed functional in nature. 4. Interval development of nonspecific peripheral consolidation left lung base that may be secondary to subsegmental atelectasis with pulmonary infarct to be excluded. Consider follow-up CTA chest for clarification.
[2023-08-04] MEDS: sodium chloride 0.9% 1,000 ML 999 ML IV (08:08)
[2023-08-04 08:34] LABS: Basophils # 0.1 10^3/uL (0.0-0.1); Basophils % 0.9 %; Eosinophils # 0.2 10^3/uL (0.0-0.8); Eosinophils % 2.7 %; Hematocrit 40.4 % (36-47); Lymphocytes # 1.7 10^3/uL (0.8-4.8); Lymphocytes % 30.5 %; Mean Corpuscular HGB Conc 32.4 g/dL (30-55); Mean Corpuscular Hemoglobin 30.6 pg (27-33); Mean Corpuscular Volume 94.4 fl (85-98); Mean Platelet Volume 10.2 fL (7.4-10.4); Monocytes # 0.4 10^3/uL (0.2-0.9); Monocytes % 6.7 %; Neutrophils # 3.28 10^3/uL (1.8-7.7); Nucleated Red Blood Cells % 0 %; Platelet Count 359 10^3/cmm (157-399); Red Blood Count 4.28 10^6/uL (3.85-5.65); Red Cell Distribution Width 13.3 % (12.1-15.1); White Blood Count 5.55 10^3/uL (3.29-11.43)
[2023-08-04 08:54] LABS: HCG, Serum Qual Negative (Negative)
[2023-08-04 08:58] LABS: Alanine Aminotransferase 133 U/L (0-33); Alkaline Phosphatase 259 U/L (35-105); Anion Gap 13.6 (5-19); Aspartate Amino Transferase 33 U/L (0-32); Blood Urea Nitrogen 15 mg/dL (6-20); Calcium 9.2 mg/dL (8.5-10.5); Carbon Dioxide 19 mmol/L (22-29); Chloride 114 mmol/L (98-107); Creatinine Clr Calc Pharmacy 105.0451; Globulin 3.2 g/dL (1.3-4.6); Glomerular Filtration Rate 115.1 mL/min (90-130); Glucose 95 mg/dL (65-115); Osmolality Calculated 297 mOsm/kg (285-295); Potassium 3.6 mmol/L (3.5-5.1); Sodium 143 mmol/L (136-145); Total Bilirubin 0.4 mg/dL (0.15-1.2); Total Protein 7.2 g/dL (6.6-8.7)
[2023-08-04 09:43] LABS: Add Urine Microscopic? NO; Charge for UA Resulting for Rev
[2023-08-04 09:45] LABS: Bilirubin Urine Neg (Negative); Blood Urine Neg (Negative); Glucose Urine UA Norm (Normal); Ketones Urine Negative (Negative); Leukocyte Esterase Urine Negative (Negative); Nitrate Urine Negative (Negative); Protein Urine Neg (Negative); Specific Gravity, Urine 1.015 (1.005-1.030); Urine Appearance Clear (CLEAR); Urine Color Yellow (Yellow); Urobilinogen Urine Norm (Negative); pH Urine 5 (5-7)
[2023-08-04] MEDS: ondansetron 2 mg/ML SDV 2 mL 4 MG IVP (10:07)
[2023-08-04] MEDS: morphine 4 mg/mL SDV 1 mL IVP (10:07)
--- NOTE | 2023-08-04 10:13 | CTR_ITS ---
PROCEDURE INFORMATION: Exam: CTA Chest With Contrast Exam date and time: 08/04/2023 11:03 AM Age: 32 years old Clinical indication: Other: L lower lung consolidation infarct TECHNIQUE: Imaging protocol: Computed tomographic angiography of the chest with contrast. Exam focused on the arteries. 3D rendering (Not supervised by radiologist): MIP and/or 3D reconstructed images were created by the technologist. Radiation optimization: All CT scans at this facility use at least one of these dose optimization techniques: automated exposure control; mA and/or kV adjustment per patient size (includes targeted exams where dose is matched to clinical indication); or iterative reconstruction. Contrast material: OMNI 350; Contrast volume: 50 ml; Contrast route: INTRAVENOUS (IV); COMPARISON: CR XR ribs LT mn 3V w CXR1V [id number] 07/30/2023 11:10 AM RADIATION DOSE METRICS: Total DLP (mGy-cm): 184.01 FINDINGS: Pulmonary arteries: There is a moderate size, nonocclusive filling defect extending from the right main pulmonary artery into the interlobar branch and 1st order segmental branch right lower lobe and additional in filling defects within few 1st order segmental branches left lower lobe and left upper lobe consistent with acute pulmonary embolism. Overall thrombus burden deemed mild-moderate. No evidence of RV strain (RV/LV ratio-0.8). Aorta: Unremarkable. No aortic aneurysm. No aortic dissection. Lungs: Redemonstration of the small wedge-shaped area of consolidation present peripherally left lower lung zone suspicious for combination of pulmonary infarct and subsegmental atelectasis. Remaining lung white are clear. Pleural spaces: Unremarkable. No pneumothorax. No pleural effusion. Heart: Heart is not enlarged. No significant coronary artery calcifications or pericardial effusion. Lymph nodes: Unremarkable. No enlarged lymph nodes. Bones/joints: Unremarkable. No acute fracture. Soft tissues: Unremarkable. CT/CT angio chest PE protcl [id number] IMPRESSION: 1. Findings consistent with acute pulmonary embolism involving portion the right main pulmonary artery and segmental branches of the right left pulmonary arteries. Overall thrombus burden deemed mild-moderate. No evidence of RV strain. 2. Small peripheral consolidation left lower lobe likely in part secondary to pulmonary infarct.
[2023-08-04 10:49] LABS: Hepatitis A Antibody IgM Non-Reactive (Nonreactive); Hepatitis B Core IgM Non-Reactive (Nonreactive); Hepatitis B Surface Antigen Non-Reactive (Nonreactive); Hepatitis C Virus Antibody Non-Reactive (Nonreactive)
[2023-08-04] MEDS: iohexol 350 mg/mL 500 mL Btl (per mL) IV (11:07)
[2023-08-04 11:56] LABS: Troponin(5th) Baseline < 6 ng/L (0-10)
[2023-08-04] MEDS: heparin drip 25,000 UNIT/500 ML PREMIX 13.9700000000000006 UNIT IV (12:13)
[2023-08-04] MEDS: heparin 5,000 unit/mL INJ 1 mL IV ×2 (12:14→20:51)
[2023-08-04 12:15] LABS: NT Pro B Type Natriuretic Pept < 36 pg/mL (0-125)
--- NOTE | 2023-08-04 12:31 | ECG_ITS ---
[facility] Test Date: 2023-08-04 Pat Name: Mary Nesbitt Department: Room: Gender: Female Manager Clinical Informatics: : 1990 Requested By: Kris Hess Order Number: [id number] Chanel MD: Darwin Toledo M.D. Measurements Intervals [place] Rate: 77 P: 53 AK: 155 QRS: 41 QRSD: 80 T: 49 QT: 375 QTc: 425 Interpretive Statements SINUS RHYTHM Compared to ECG 05/01/2023 20:33:58 Sinus arrhythmia no longer present T-wave abnormality no longer present Electronically Signed On 08-04-2023 21:33:00 CDT by Darwin Toledo M.D. [id number]
--- NOTE | 2023-08-04 12:46 | USR_ITS ---
PROCEDURE INFORMATION: Exam: US Duplex Lower Extremity Veins, Bilateral Exam date and time: 08/04/2023 1:07 PM Age: 32 years old Clinical indication: Screening exam; Dvt TECHNIQUE: Imaging protocol: Real-time duplex ultrasound of the bilateral extremities with 2-D may scale, color Doppler flow and spectral waveform analysis including responses to compression and other maneuvers (when performed) with image documentation. Complete exam focused on the lower extremity veins. COMPARISON: US pelvic complete* [id number] 02/10/2023 1:03 AM FINDINGS: Right deep veins: Unremarkable. The common femoral, femoral, proximal profunda femoral and popliteal veins are patent without thrombus. Normal Doppler waveforms. Normal compressibility and/or augmentation response. Left deep veins: Unremarkable. The common femoral, femoral, proximal profunda femoral and popliteal veins are patent without thrombus. Normal Doppler waveforms. Normal compressibility and/or augmentation response. Superficial veins: Greater saphenous veins at the saphenofemoral junctions are patent bilaterally without thrombus. Soft tissues: Unremarkable. US/CV venous duplex [facility] [id number] IMPRESSION: No evidence of deep vein thrombosis.
--- NOTE | 2023-08-04 13:23 | ECG_ITS ---
[facility] Test Date: 2023-08-04 Pat Name: Mary Nesbitt Department: Room: Gender: Female Supervisor [place]: : 1990 Requested By: Kris Hess Order Number: [id number] Chanel MD: Darwin Toledo M.D. Measurements Intervals [place] Rate: 82 P: 44 MO: 161 QRS: 22 QRSD: 84 T: 38 QT: 367 QTc: 430 Interpretive Statements SINUS RHYTHM Compared to ECG 08/04/2023 12:31:36 No significant changes Electronically Signed On 08-04-2023 21:36:21 CDT by Darwin Toledo M.D. [id number]
--- NOTE | 2023-08-04 13:24 | USCV_ITS ---
Mary Nesbitt Age: 32 Gender: F : 1990 Exam Date: 08/04/2023 16:54 Ordering Phys: Ryan Carrasquillo MD Technologist: Daniel Dozier [place] [facility] [place]ication: sob BP: 122 / 83 HR: 85 Rhythm: Sinus Technical Quality: Adequate MEASUREMENTS (Male / Female) Normal Values 2D ECHO LV Diastolic Diameter PLAX 3.4 cm 4.2 - 5.9 / 3.9 - 5.3 cm IVS Diastolic Thickness 1.2 cm 0.6 - 1.0 / 0.6 - 0.9 cm IVS Systolic Thickness 1.4 cm LVPW Diastolic Thickness 1.3 cm 0.6 - 1.0 / 0.6 - 0.9 cm LVPW Systolic Thickness 1.6 cm LVOT Diameter 2.0 cm LV Ejection Fraction 2D Teich 65.2 % LV Ejection Fraction MOD 2C 73.2 % LV Ejection Fraction 2C AL 76.5 % LA Diameter 3.1 cm RA Systolic Volume 4C AL 12.2 ml RA Systolic Volume 4C MOD 12.4 ml LA Sys Volume AL 18.7 cm cubed LA Sys Volume Index AL 12.9 cm cubed/m squared Aorta at Sinotubular Diameter 2.6 cm IVC Diameter 1.4 cm M-MODE LA Ao Ratio MM 1.5 AV Cusp Separation MM 1.2 cm DOPPLER AV Peak Velocity 123.7 cm/s LVOT Peak Velocity 86.0 cm/s AV Area Cont Eq vti 2.4 cm squared AV Area Cont Eq pk 2.2 cm squared MV Peak Velocity 100.0 cm/s MV Area PHT 5.9 cm squared Mitral E to A Ratio 0.9 TR Peak Velocity 213.0 cm/s TR Peak Gradient 18.1 mmHg TR Mean Velocity 169.0 cm/s TR Mean Gradient 11.8 mmHg TR Velocity Time Integral 61.5 cm PV Peak Velocity 86.0 cm/s RV Ejection Time 0.3 s FINDINGS Left Ventricle Left ventricle is normal size. LV systolic function is normal with EF of 60 to 65%. No regional wall motion abnormalities are seen. Grade 1 diastolic dysfunction. Right Ventricle Normal in size and function Right Atrium Normal in size Left Atrium Normal in size Mitral Valve Structurally normal mitral valve. Mild mitral regurgitation Aortic Valve Structurally normal aortic valve. No significant stenosis or regurgitation. Tricuspid Valve Mild tricuspid regurgitation. RVSP is normal Pulmonic Valve Trace pulmonic regurgitation. Pericardium Normal Aorta Normal in size IVC Appears to be normal CONCLUSIONS LV systolic function is normal with EF of 60 to 65%. Grade 1 diastolic dysfunction. Mild mitral regurgitation Mild tricuspid regurgitation Trace pulmonic regurgitation No comparison studies are available. Darwin Toledo MD (Electronically Signed) Final Date: 04 August 2023 22:06 S
--- NOTE | 2023-08-04 13:25 | P.HP_ITS ---
Providers/Chief Complaint 2 Primary Care Provider: Joaquin Mak MD Chief Complaint: Stomach pain History of Present Illness Mary Nesbitt is a 32 year old female with a past medical history of hypertension, history of seizures, who presents to [facility] due to chest pain, shortness of breath, abdominal pain. Patient tells me for the last 2 to 3 months, she has been having episodes of what she describes as panic attack intermittent, nonspecific chest pain associate with shortness of breath, chest palpitations, which has been coming more frequent, recently she has been complaining of increased shortness of breath, rib pain, pleurisy, she saw her primary care provider, as she was concerned for pneumonia and she had a chest x- ray ordered, but she has not heard back, and she decided to come to the emergency room today as she was having diarrhea with abdominal pain, no hematochezia, no melena, abdominal pain is fairly nonspecific, but does complain of left upper quadrant pain, more in her left rib, denies any lightheadedness, dizziness, denies passing out, does report increased shortness of breath with exertion, no hemoptysis, no recent surgeries, no recent travel, denies any drug use, no history of smoking is not on any hormone replacement therapy she has had a hysterectomy, she is also had her right ovary removed, she does report a family history of ovarian cancer does report a history of family history of breast cancer, she also reports that she has had 2 family numbers including her mom and her grandfather have a history of blood clots Review of Systems 2 Const: Denies: fever(s) Card: Reports: chest pain Resp: Reports: dyspnea Medications/Allergies Home Medications Medication Instructions Recorded Confirmed Last Taken Type topiramate 100 mg tablet (Topamax) 300 mg PO DAILY 11/10/20 07/17/23 12/21/22 History cholecalciferol (vitamin D3) 25 50 mcg PO DAILY 06/15/22 07/17/23 Unknown History mcg (1,000 unit) capsule (Vitamin D3) ondansetron 4 mg disintegrating 4 mg PO Q8H PRN nausea and 06/15/22 07/17/23 12/21/22 Rx tablet vomiting #14 tabs cetirizine 10 mg tablet (Zyrtec) 10 mg PO DAILY #30 tabs 07/26/22 07/17/2323 Rx triamterene 37.5 1 cap PO DAILY 12/21/22 07/17/23 12/21/22 History mg-hydrochlorothiazide 25 mg capsule ondansetron 4 mg disintegrating 4 mg PO Q6H PRN nausea and 02/10/23 07/17/23 Unknown Rx tablet vomiting #14 tabs leflunomide 20 mg tablet 20 mg PO DAILY #30 tabs 02/21/23 07/17/23 Unknown Rx cyclobenzaprine 10 mg tablet 10 mg PO TID #14 tabs 05/01/23 07/17/23 Unknown Rx cyclobenzaprine 10 mg tablet 10 mg PO Q8H #20 tabs 06/03/23 07/17/23 Unknown Rx buspirone 10 mg tablet 10 mg PO BID #60 tabs 06/06/23 07/17/23 Unknown Rx gabapentin 300 mg capsule 600 mg (2 x 300 mg) PO QID 30 days 06/06/23 07/17/23 Unknown Rx #240 caps trazodone 150 mg tablet 150 mg PO BEDTIME #30 tabs 06/06/23 07/17/23 Unknown Rx adalimumab 40 mg/0.8 mL 40 mg (0.8 mL) SUBCUT Q14D #2 ea 06/07/23 07/17/23 Unknown Rx subcutaneous pen kit (Humira Pen) Allergies Allergy/AdvReac Type Severity Reaction Status Date / Time methylprednisolone Allergy Severe ALGY-Anaphy Verified 07/17/23 14:53 laxis Latex, Natural Rubber Allergy Intermediate rash, hives Verified 06/28/23 09:04 amoxicillin Allergy ALGY-Hives Verified 06/28/23 09:04 methotrexate AdvReac Intermediate migraines, Verified 06/28/23 09:04 N/V PFSH Acute 2 PFSH: Medical History Vapes nicotine containing substance Seizures Hx of migraines Ovarian mass, right Family history of psoriasis in father High risk medication use Inflammatory back pain Inflammatory arthritis Psychiatric care 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 Mosher at [facility] History of tubal ligation 12/2015- per Dr. Mosher at [facility] H/O removal of cyst [address] Mosher Family History Mother Stroke Hyperlipidemia Family history of thyroid problem Hypertension Father Degenerative disc disease Diabetes Unknown Breast cancer maternal great aunt Grandmother Ovarian cancer maternal Uterine cancer maternal Other Cancer Chronic kidney disease (CKD) Rheumatoid arthritis Denies family history of Lupus Social History Smoking and tobacco/nicotine status: former use of tobacco/nicotine Second hand smoke exposure: No Alcohol intake: never Substance/Drug Use: never Vitals/I&O/Wt Last Vital Signs Temp 97.6 F 08/04/23 07:37 Pulse 78 08/04/23 07:37 Resp 16 08/04/23 10:07 BP 120/77 08/04/23 12:30 Pulse Ox 98 08/04/23 12:30 O2 Del Method Room Air 08/04/23 07:37 08/03/23 08/04/23 08/04/23 22:59 06:59 14:59 Intake Total 1000 / 1000 Balance 1000 / 1000 Weight last 48 hrs Weight 49.895 kg Physical Exam 2 Const: COMMON NORMALS: no acute distress and patient oriented x3 Eye: COMMON NORMALS: Equal, round and reactive pupils present and EOMs intact bilaterally Neck/C-Spine: COMMON NORMALS: full ROM and no lymphadenopathy Resp: COMMON NORMALS: normal respiratory effort, No retractions, No use of accessory muscles and clear to auscultation bilaterally AUSCULTATION: clear to auscultation bilaterally Cardio: COMMON NORMALS: regular rate, regular rhythm, S1 normal heart sound present and S2 normal heart sound present RATE: regular rate RHYTHM: r egular rhythm HEART SOUNDS: S1 normal heart sound present and S2 normal heart sound present GI: COMMON NORMALS: Normal to inspection, nondistended, normoactive bowel sounds present, Soft to palpation and non-tender Extremity: COMMON NORMALS: no calf tenderness and no pedal edema Neuro: COMMON NORMALS: patient oriented x3, CN's II-XII intact bilaterally and moves all extremities Psych: COMMON NORMALS: mental status grossly normal Data 08/04/23 08:02 08/04/23 08:02 A&P Assessment and plan (1) Transaminitis: (2) Bilateral pulmonary embolism: (3) Pulmonary infarct: Plan Bilateral pulmonary embolism, with evidence of pulmonary infarct ? CT/CT angio chest PE protcl [id number] IMPRESSION: 1. Findings consistent with acute pulmonary embolism involving portion the right main pulmonary artery and segmental branches of the right left pulmonary arteries. Overall thrombus burden deemed mild-moderate. No evidence of RV strain. 2. Small peripheral consolidation left lower lobe likely in part secondary to pulmonary infarct. ? Does report a family history of hypercoagulable events in her mother and her grandfather, does report a family history of ovarian cancer in her aunt, mother had breast cancer, denies a history of miscarriages, is ? Plan ? Continue heparin drip, will need IV anticoagulation for 48 hours ? Cardiac echo ? Venous ultrasound ? Patient will require a hypercoagulable workup including factor V Leiden, antiphospholipid, Antithrombin III, protein C&S, however currently patient is on heparin drip will have to follow-up with hematology as outpatient ? Continue telemetry monitoring ? Serial troponins, serial EKGs, ? Monitor respiratory status closely -Transaminitis, acute hep panel, HIV, patient is status post hysterectomy ? Full code ? Heparin drip for DVT prophylaxis Attestations 2 Medical Necessity Statement*: Patient requires hospitalization, inpatient, greater than 2 midnights, for bilateral pulmonary embolism, pulmonary infarct Diagnoses Transaminitis R74.01 Bilateral pulmonary embolism I26.99 Pulmonary infarct I26.99
[2023-08-04 13:47] LABS: Lactic Sepsis W/Reflex 0.5 mmol/L (0.5-2.2)
[2023-08-04 13:52] LABS: CA 125 22.6 U/mL (0-35)
[2023-08-04 13:58] LABS: Erythrocyte Sedimentation Rate 64 mm/hr (0-15)
[2023-08-04 14:33] LABS: Troponin 5 2HR Delta 0.00001 ABS# (0-10)
[2023-08-04] MEDS: morphine 4 mg/mL SDV 1 mL 2 MG IVP ×3 (15:08→23:30)
[2023-08-04 15:11] LABS: Chol HDL Ratio 3.45 mg/dL (0.0-4.40); Cholesterol 169 mg/dL (0-200); HDL Cholesterol 49 mg/dL (60-100); LDL Cholesterol Calculated 94 mg/dL (50-129); LDL HDL Ratio 1.92 RATIO (0.00-3.22); Thyroid Stimulating Hormone 0.47 uIU/mL (0.27-4.20); Triglycerides 128 mg/dL (0-150)
[2023-08-04 15:14] LABS: HIV 1 & 2 Antibody Non-Reactive (Non-Reactiv); HIV 1 & 2 Antigen Non-Reactive (Non-Reactiv)
[2023-08-04 15:15] LABS: Estmated Average Glucose 97
--- NOTE | 2023-08-04 17:12 | ECG_ITS ---
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 Measurements Intervals Viola Rate: 80 P: 45 NC: 146 QRS: 24 QRSD: 81 T: 43 QT: 359 QTc: 416 Interpretive Statements SINUS RHYTHM Compared to ECG 08/04/2023 13:23:51 No significant changes Electronically Signed On 08-04-2023 21:35:26 CDT by Darwin Toledo M.D. [id number]
[2023-08-04] MEDS: sodium chloride 0.9% 1,000 ML 75 ML IV (17:45)
[2023-08-04] MEDS: BuSPIRONE 10 mg Tablet PO (17:45)
[2023-08-04] MEDS: gabapentin 300 mg Capsule 600 MG PO ×2 (17:46→21:06)
[2023-08-04] MEDS: topiramate 100 mg Tablet 300 MG PO (19:24)
[2023-08-04 19:33] LABS: Troponin 5 6HR Delta 0.00001 ng/L (0-12)
[2023-08-04 20:11] LABS: Partial Thromboplastin Time 41.8 SECONDS (23.9-36.7)
[2023-08-04] MEDS: fentaNYL 25 mcg Patch 1 PATCH TRANSDERMA (21:07)
[2023-08-05] VITALS (15 sets, daily range): BP systolic 104–132; BP diastolic 71–86; PULSE 79–99; RESP 16–20; TEMP 36.3–36.4; O2SAT 95–99; BMI 22.2
[2023-08-05 02:10] LABS: Basophils # 0.1 10^3/uL (0.0-0.1); Basophils % 1.2 %; Eosinophils # 0.2 10^3/uL (0.0-0.8); Eosinophils % 2.8 %; Hematocrit 39.8 % (36-47); Lymphocytes # 2.1 10^3/uL (0.8-4.8); Lymphocytes % 35.8 %; Mean Corpuscular HGB Conc 31.4 g/dL (30-55); Mean Corpuscular Hemoglobin 30.6 pg (27-33); Mean Corpuscular Volume 97.5 fl (85-98); Monocytes # 0.5 10^3/uL (0.2-0.9); Monocytes % 8.2 %; Neutrophils # 2.95 10^3/uL (1.8-7.7); Neutrophils % 51.7 %; Nucleated Red Blood Cells % 0 %; Platelet Count 351 10^3/cmm (157-399); Red Blood Count 4.08 10^6/uL (3.85-5.65); Red Cell Distribution Width 13.5 % (12.1-15.1); White Blood Count 5.72 10^3/uL (3.29-11.43)
[2023-08-05] MEDS: HYDROmorphone 1 mg/mL INJ 1 mL IVP (02:15)
[2023-08-05 02:21] LABS: Anion Gap 14.9 (5-19); Blood Urea Nitrogen 13 mg/dL (6-20); Calcium 8.3 mg/dL (8.5-10.5); Carbon Dioxide 19 mmol/L (22-29); Chloride 112 mmol/L (98-107); Creatinine Clr Calc Pharmacy 126.0542; Glomerular Filtration Rate 142.1 mL/min (90-130); Glucose 94 mg/dL (65-115); Osmolality Calculated 294 mOsm/kg (285-295); Potassium 3.9 mmol/L (3.5-5.1); Sodium 142 mmol/L (136-145)
[2023-08-05 02:22] LABS: Partial Thromboplastin Time 61.3 SECONDS (23.9-36.7)
[2023-08-05] MEDS: morphine 4 mg/mL SDV 1 mL 2 MG IVP ×2 (04:11→08:17)
[2023-08-05] MEDS: sodium chloride 0.9% 1,000 ML 75 ML IV (06:26)
[2023-08-05] MEDS: topiramate 100 mg Tablet 300 MG PO (08:09)
[2023-08-05] MEDS: BuSPIRONE 10 mg Tablet PO ×2 (08:09→16:43)
[2023-08-05] MEDS: gabapentin 300 mg Capsule 600 MG PO ×4 (08:09→20:46)
[2023-08-05 09:03] LABS: Partial Thromboplastin Time 59.7 SECONDS (23.9-36.7)
[2023-08-05] MEDS: oxyCODONE-APAP 5-325 mg Tablet 1 TAB PO ×2 (09:44→14:57)
--- NOTE | 2023-08-05 14:19 | P.PN_ITS ---
Subjective 2 Subjective: Patient was seen this morning, she does report pleurisy when taking a deep breath in, no nausea, no vomiting, no chest pain, no lightheadedness, dizziness, currently on room air, afebrile denies any bloody or black stools Vitals/I&O/Wt Last Vital Signs Temp 97.5 F L 08/05/23 11:45 Pulse 90 08/05/23 11:45 Resp 18 08/05/23 11:45 BP 104/71 08/05/23 11:45 Pulse Ox 96 08/05/23 11:45 O2 Del Method Room Air 08/05/23 11:45 08/04/23 08/05/23 08/05/23 22:59 06:59 14:59 Intake Total 120.841 / 6684.455 1601.183 / 2163.024 1442.433 / 1442.433 Balance 120.841 / 4115.864 5141.183 / 2163.024 1442.433 / 1442.433 Weight last 48 hrs Weight 49.895 kg Weight 49.895 kg Weight 49.895 kg Physical Exam 2 Const: COMMON NORMALS: no acute distress and patient oriented x3 Resp: COMMON NORMALS: normal respiratory effort, No retractions, No use of accessory muscles and clear to auscultation bilaterally AUSCULTATION: clear to auscultation bilaterally Cardio: COMMON NORMALS: regular rate, regular rhythm, S1 normal heart sound present and S2 normal heart sound present RATE: regular rate RHYTHM: r egular rhythm HEART SOUNDS: S1 normal heart sound present and S2 normal heart sound present GI: COMMON NORMALS: Normal to inspection, nondistended, normoactive bowel sounds present and non-tender Extremity: COMMON NORMALS: no pedal edema Neuro: COMMON NORMALS: patient oriented x3 Psych: COMMON NORMALS: mental status grossly normal Data 08/05/23 01:57 08/05/23 01:57 A&P Assessment and plan (1) Transaminitis: (2) Bilateral pulmonary embolism: (3) Pulmonary infarct: Plan Bilateral pulmonary embolism, with evidence of pulmonary infarct ? CT/CT angio chest PE protcl [id number] IMPRESSION: 1. Findings consistent with acute pulmonary embolism involving portion the right main pulmonary artery and segmental branches of the right left pulmonary arteries. Overall thrombus burden deemed mild-moderate. No evidence of RV strain. 2. Small peripheral consolidation left lower lobe likely in part secondary to pulmonary infarct. ? Does report a family history of hypercoagulable events in her mother and her grandfather, does report a family history of ovarian cancer in her aunt, mother had breast cancer, denies a history of miscarriages, is ? Plan ? Continue heparin drip, will need IV anticoagulation for 48 hours ? Cardiac echo within normal limits ? Venous ultrasound within normal limits ? Patient will require a hypercoagulable workup including factor V Leiden, antiphospholipid, Antithrombin III, protein C&S, however currently patient is on heparin drip will have to follow-up with hematology as outpatient ? Continue telemetry monitoring ? Serial troponins, serial EKGs, ? Monitor respiratory status closely -Transaminitis, acute hep panel negative, HIV negative, patient is status post hysterectomy ? Full code ? Heparin drip for DVT prophylaxis Plan for today continue heparin drip Attestations 2 Medical Necessity Statement*: Patient requires hospitalization for bilateral PEs Diagnoses Transaminitis R74.01 Bilateral pulmonary embolism I26.99 Pulmonary infarct I26.99
[2023-08-05 15:22] LABS: Partial Thromboplastin Time 52.4 SECONDS (23.9-36.7)
[2023-08-05] MEDS: heparin 5,000 unit/mL INJ 1 mL IV (16:09)
[2023-08-05] MEDS: HYDROmorphone 1 mg/mL INJ 1 mL 0.5 MG IVP ×2 (16:44→20:45)
--- NOTE | 2023-08-05 16:47 | USR_ITS ---
PROCEDURE INFORMATION: Exam: US Abdomen Complete Exam date and time: 08/05/2023 5:30 PM Age: 32 years old Clinical indication: Abdominal pain; Localized; Left upper quadrant (luq); Prior surgery; Surgery date: 6+ months; Surgery type: Gb removed; Additional info: Left upper quad pain TECHNIQUE: Imaging protocol: Real-time ultrasound of the abdomen with image documentation. Complete exam. COMPARISON: US pelvic complete* [id number] 02/10/2023 1:03 AM FINDINGS: Liver: Unremarkable. Gallbladder: Surgically absent. Biliary ducts: Normal. No stones. No dilation. Pancreas: Unremarkable as visualized. Right kidney: No mass. No definite stones. No hydronephrosis. Left kidney: No mass. No definite stones. No hydronephrosis. Spleen: Unremarkable. Aorta: Unremarkable as visualized. No aneurysm. Inferior vena cava: Unremarkable as visualized. US/US abdomen complete* [id number] IMPRESSION: No acute sonographic findings.
[2023-08-05] MEDS: heparin drip 25,000 UNIT/500 ML PREMIX 17 UNIT IV (19:26)
[2023-08-05 22:04] LABS: Partial Thromboplastin Time 66.9 SECONDS (23.9-36.7)
[2023-08-06] VITALS: BP 101/67; PULSE 89; RESP 17; TEMP 36.4; O2SAT 95
[2023-08-06 03:07] VITALS: RESP 16
[2023-08-06] MEDS: HYDROmorphone 1 mg/mL INJ 1 mL 0.5 MG IVP ×2 (03:07→08:02)
[2023-08-06 04:00] VITALS: BP 103/69; PULSE 82; RESP 17; TEMP 36.5; O2SAT 98
[2023-08-06 04:42] LABS: Partial Thromboplastin Time 68.4 SECONDS (23.9-36.7)
[2023-08-06 05:50] VITALS: PULSE 84
[2023-08-06 07:24] VITALS: BP 104/72; PULSE 85; RESP 17; TEMP 36.6; O2SAT 98
[2023-08-06] MEDS: BuSPIRONE 10 mg Tablet PO (08:01)
[2023-08-06] MEDS: gabapentin 300 mg Capsule 600 MG PO (08:01)
[2023-08-06] MEDS: topiramate 100 mg Tablet 300 MG PO (08:02)
--- NOTE | 2023-08-06 09:16 | PC.CHAP ---
Pastoral Care Encounter/Spiritual Assessment Type of Contact [] Declined scheduler conveyor visit [] Patient/Family/Request visit [] Outpatient visit [] Follow-up visit [] Physician referral [] Code/Alert [x] Routine visit [] Staff referral [] Actively dying [] Patient sleeping [] Family support [] [] Out of room [] Palliative care [] [] Receiving care in room [] Pre-surgical visit [] Trauma [] Long length of stay [] ICU visit [] Other: Relational/Emotional Strength [] Patient feels connected with others/family/visitors/staff [] Distress [] Loneliness/isolation [] Abandonment Spirituality of Patient [x] Person of Antonina [] Attends Buddhist of their Antonina [x] Believes in Prayer [] Reads Bible or Yazidism materials [] There are Spiritual issues to be addressed Sales Account Associate Interventions [x] Prayer [x] Active listening [] Non-anxious presence [] Spiritual/emotional support [] Crisis/trauma care [] Spiritual counseling [] Bereavement support [] Provided bereavement packet [x] Provided Bible/devotional materials [] Provided toy/stuffed animal, coloring book to patient or family member [] Provided Communion [] Anointing/Dow [] Salvation [x] Completed spiritual assessment [] Other: Impact on Illness or Injury [] Angry [] Fearful [] Anxious [] Often cries [] Exhaustion [] Unable to work [] Unable to attend adventist [] Unable to walk/stand [] Unable to read [] Unable to drive [] Unable to eat/drink [] Unable to sleep [] Unable to be with family [] Patient intubated [] Other: Summary Time spent with patient 5 min
[2023-08-06] MEDS: apixaban 5 mg Tablet 10 MG PO (09:34)
[2023-08-06 09:50] LABS: Basophils # 0.1 10^3/uL (0.0-0.1); Eosinophils # 0.2 10^3/uL (0.0-0.8); Eosinophils % 2.6 %; Hematocrit 37.9 % (36-47); Lymphocytes % 31.5 %; Mean Corpuscular HGB Conc 30.9 g/dL (30-55); Mean Corpuscular Hemoglobin 30.5 pg (27-33); Mean Platelet Volume 10.2 fL (7.4-10.4); Monocytes # 0.5 10^3/uL (0.2-0.9); Monocytes % 7.6 %; Neutrophils # 3.54 10^3/uL (1.8-7.7); Neutrophils % 56.8 %; Nucleated Red Blood Cells % 0 %; Platelet Count 335 10^3/cmm (157-399); Red Blood Count 3.83 10^6/uL (3.85-5.65); Red Cell Distribution Width 13.5 % (12.1-15.1); White Blood Count 6.22 10^3/uL (3.29-11.43)
[2023-08-06 10:20] LABS: Alanine Aminotransferase 85 U/L (0-33); Albumin Level 3.7 g/dL (3.5-5.2); Alkaline Phosphatase 258 U/L (35-105); Anion Gap 13.1 (5-19); Aspartate Amino Transferase 33 U/L (0-32); Blood Urea Nitrogen 17 mg/dL (6-20); Calcium 9.1 mg/dL (8.5-10.5); Carbon Dioxide 19 mmol/L (22-29); Chloride 112 mmol/L (98-107); Creatinine Clr Calc Pharmacy 117.8413; Glomerular Filtration Rate 115.1 mL/min (90-130); Glucose 91 mg/dL (65-115); Osmolality Calculated 291 mOsm/kg (285-295); Potassium 4.1 mmol/L (3.5-5.1); Sodium 140 mmol/L (136-145); Total Bilirubin 0.2 mg/dL (0.15-1.2); Total Protein 6.7 g/dL (6.6-8.7)
--- NOTE | 2023-08-06 11:23 | P.DS_ITS ---
Discharge Providers Date of Admission: 08/04/23 12:48 Date of Discharge: August 06, 2023 Attending Provider at Admission: Ryan Carrasquillo MD Attending Provider at Discharge: Ryan Carrasquillo MD Primary Care Provider: Joaquin Mak MD Diagnoses at Discharge Discharge Diagnosis (1) Transaminitis: Status: Acute (2) Bilateral pulmonary embolism: Status: Acute (3) Pulmonary infarct: Status: Acute Reason for Visit Reason for Visit: Stomach pain Hospital Course Hospital Course Mary Nesbitt is a 32 year old female with a past medical history of hyperte nsion, history of seizures, who presents to [facility] due to chest pain, shortness of breath, abdominal pain. Patient tells me for the last 2 to 3 months, she has been having episodes of what she describes as panic attack intermittent, nonspecific chest pain associate with shortness of breath, chest palpitations, which has been coming more frequent, recently she has been complaining of increased shortness of breath, rib pain, pleurisy, she saw her primary care provider, as she was concerned for pneumonia and she had a chest x- ray ordered, but she has not heard back, and she decided to come to the emergency room today as she was having diarrhea with abdominal pain, no hematochezia, no melena, abdominal pain is fairly nonspecific, but does complain of left upper quadrant pain, more in her left rib, denies any lightheadedness, dizziness, denies passing out, does report increased shortness of breath with exertion, no hemoptysis, no recent surgeries, no recent travel, denies any drug use, no history of smoking is not on any hormone replacement therapy she has had a hysterectomy, she is also had her right ovary removed, she does report a family history of ovarian cancer does report a history of family history of breast cancer, she also reports that she has had 2 family numbers including her mom and her grandfather have a history of blood clots Patient presents [facility] for bilateral pulmonary embolism, no evidence of RV strain, received inpatient anticoagulation for 48 hours, tolerated it well, did not require oxygen, hemodynamic stable, hemoglobin stab le, will be discharged on Eliquis therapy. For pleurisy, pleuritic like pain, will discharge her with short supply of oxycodone to be used sparingly for pain. In terms of the etiology? Remains unclear, will have her follow-up with Dr. Fine as outpatient for hereditary hypercoagulability testing. Patient was advised if she were to have any chest pain or shortness of breath to come back to the emergency room. For her transaminitis, elevated LFTs, please follow-up with primary care provider as outpatient, consider referral to GI based on clinical progress - I am discharging on Eliquis 10 mg twice daily (2 tabs twice daily)for 7 days, followed by 5 mg twice daily -Duration of Eliquis therapy will be determined by its cause at minimum 6 months or could be longer such as the rest of her life based upon its etiology ? Eliquis is a very strong blood thinner, if you develop bloody or black stools, or you have a significant traumatic fall or injury please go immediately to the emergency room ? Please have your primary care provider recheck your hemoglobin in 48 hours ? Please follow-up with Dr. Fine to investigate the etiology behind your blood clots ? If you have sudden onset chest pain or shortness of breath please go to the emergency room ? Please use oxycodone sparingly for pain, do not drive or operate heavy machinery or drink or take with any other controlled substances Physical Exam Const: COMMON NORMALS: no acute distress and patient oriented x3 Resp: COMMON NORMALS: normal respiratory effort, No retractions, No use of accessory muscles and clear to auscultation bilaterally AUSCULTATION: clear to auscultation bilaterally Cardio: COMMON NORMALS: regular rate, regular rhythm, S1 normal heart sound present and S2 normal heart sound present RATE: regular rate RHYTHM: regular rhythm HEART SOUNDS: S1 normal heart sound present and S2 normal he art sound present GI: COMMON NORMALS: Normal to inspection, nondistended, normoactive bowel sounds present and non-tender Extremity: COMMON NORMALS: no pedal edema Neuro: COMMON NORMALS: patient oriented x3 Psych: COMMON NORMALS: mental status grossly normal Discharge Data Studies Completed and Pending Completed Studies During Hospitalization Category Date Time Status CT abdomen pelvis wo con [id number] Stat Cat Scan 08/04/23 07:[address] angio chest PE protcl [id number] Stat Cat Scan 08/04/23 10:13 Completed CV. echo complete* [id number] Routine Ultrasound 08/04/23 13:24 Completed US abdomen complete* [id number] Routine Ultrasound 08/05/23 16:47 Completed US venous duplex lower extremity bilat [CV venous Ultrasound 08/04/23 12:46 [place] [id number]] Stat Pending at discharge Category Date Time Status AMA [Mitochondrial AB Screen] Stat Lab 08/04/23 08:02 Received Lupus Inhibitor Panel Anticoag Stat Lab 08/04/23 08:02 Received Radiology Impressions Abdomen/Pelvis CT 08/04/23 07:58 IMPRESSION: 1. No acute findings within the abdomen or pelvis. 2. Mild smooth bladder wall thickening, nonspecific. Please correlate for possible cystitis. 3. 2.3 cm left ovarian cyst decreased in size presumed functional in nature. 4. Interval development of nonspecific peripheral consolidation left lung base that may be secondary to subsegmental atelectasis with pulmonary infarct to be excluded. Consider follow-up CTA chest for clarification. Chest CTA 08/04/23 10:13 IMPRESSION: 1. Findings consistent with acute pulmonary embolism involving portion the right main pulmonary artery and segmental branches of the right left pulmonary arteries. Overall thrombus burden deemed mild-moderate. No evidence of RV strain. 2. Small peripheral consolidation left lower lobe likely in part secondary to pulmonary infarct. ADDENDUM: 08/04/23 1156 THIS REPORT CONTAINS FINDINGS THAT MAY BE CRITICAL TO PATIENT CARE. The findings were verbally communicated via telephone conference with WINDY Herrera at 11:55 AM CDT on 08/04/2023. The findings were acknowledged and understood. Venous Duplex 08/04/23 12:46 IMPRESSION: No evidence of deep vein thrombosis. Abdomen Ultrasound 08/05/23 16:47 IMPRESSION: No acute sonographic findings. Laboratory Results WBC 6.22 10^3/uL (3.29-11.43) 08/06/23 09:14 RBC 3.83 10^6/uL (3.85-5.65) L 08/06/23 09:14 Hgb 11.70 g/dL (11.27-16.99) 08/06/23 09:14 Hct 37.9 % (36-47) 08/06/23 09:14 MCV 99.0 fl (85-98) H 08/06/23 09:14 MCH 30.5 pg (27-33) 08/06/23 09:14 MCHC 30.9 g/dL (30-55) 08/06/23 09:14 RDW 13.5 % (12.1-15.1) 08/06/23 09:14 Plt Count 335 10^3/cmm (157-399) 08/06/23 09:14 MPV 10.2 fL (7.4-10.4) 08/06/23 09:14 Neut % (Auto) 56.8 % 08/06/23 09:14 Lymph % (Auto) 31.5 % 08/06/23 09:14 [place] % (Auto) 7.6 % 08/06/23 09:14 Eos % (Auto) 2.6 % 08/06/23 09:14 Baso % (Auto) 1.0 % 08/06/23 09:14 Neut # (Auto) 3.54 10^3/uL (1.8-7.7) 08/06/23 09:14 Lymph # (Auto) 2.0 10^3/uL (0.8-4.8) 08/06/23 09:14 [place] # (Auto) 0.5 10^3/uL (0.2-0.9) 08/06/23 09:14 Eos # (Auto) 0.2 10^3/uL (0.0-0.8) 08/06/23 09:14 Baso # (Auto) 0.1 10^3/uL (0.0-0.1) 08/06/23 09:14 Nucleated RBC % (auto) 0 % 08/06/23 09:14 Nucleated RBCs # 0.0 /100WBC 08/06/23 09:14 ESR 64 mm/hr (0-15) H 08/04/23 08:02 APTT 68.4 SECONDS (23.9-36.7) H 08/06/23 04:18 Sodium 140 mmol/L (136-145) 08/06/23 09:14 Potassium 4.1 mmol/L (3.5-5.1) 08/06/23 09:14 Chloride 112 mmol/L (98-107) H 08/06/23 09:14 Carbon Dioxide 19 mmol/L (22-29) L 08/06/23 09:14 Anion Gap 13.1 (5-19) 08/06/23 09:14 BUN 17 mg/dL (6-20) 08/06/23 09:14 Creatinine 0.6 mg/dL (0.5-0.9) 08/06/23 09:14 GFR Calculation 115.1 mL/min (90-130) 08/06/23 09:14 Glucose 91 mg/dL (65-115) 08/06/23 09:14 Estimat Average Glucose 97 08/04/23 08:02 Hemoglobin A1c 5.0 % (4.0-6.0) 08/04/23 08:02 Calculated Osmolality 291 mOsm/kg (285-295) 08/06/23 09:14 Lactic Acid 0.5 mmol/L (0.5-2.2) 08/04/23 08:02 Calcium 9.1 mg/dL (8.5-10.5) 08/06/23 09:14 Total Bilirubin 0.2 mg/dL (0.15-1.2) 08/06/23 09:14 AST 33 U/L (0-32) H 08/06/23 09:14 ALT 85 U/L (0-33) H 08/06/23 09:14 Alkaline Phosphatase 258 U/L (35-105) H 08/06/23 09:14 Troponin T Baseline < 6 ng/L (0-10) 08/04/23 11:21 Troponin T 120 Minute 6.00 ng/L (0-10) 08/04/23 14:10 Delta Troponin T 0.57265 ABS# (0-10) 08/04/23 14:10 Troponin T Hi Sens 6Hr 6.00 ng/L (0-10) 08/04/23 19:08 Troponin T Hi Sens 6Hr Delta 0.96566 ng/L (0-12) 08/04/23 19:08 C-Reactive Protein 3.0 mg/L (0.0-4.9) 08/04/23 11:21 NT-Pro-B Natriuret Pep < 36 pg/mL (0-125) 08/04/23 11:21 Total Protein 6.7 g/dL (6.6-8.7) 08/06/23 09:14 Albumin 3.7 g/dL (3.5-5.2) 08/06/23 09:14 Globulin 3.0 g/dL (1.3-4.6) 08/06/23 09:14 Triglycerides 128 mg/dL (0-150) 08/04/23 11:21 Cholesterol 169 mg/dL (0-200) 08/04/23 11:21 LDL Cholesterol, Calc 94 mg/dL (50-129) 08/04/23 11:21 HDL Cholesterol 49 mg/dL (60-100) L 08/04/23 11:21 LDL/HDL Ratio 1.92 RATIO (0.00-3.22) 08/04/23 11:21 Cholesterol/HDL Ratio 3.45 mg/dL (0.0-4.40) 08/04/23 11:21 CA 125 Antigen 22.6 U/mL (0-35) 08/04/23 08:02 TSH 0.47 uIU/mL (0.27-4.20) 08/04/23 11:21 HCG, Qual Negative (Negative) 08/04/23 08:02 Urine Color Yellow (Yellow) 08/04/23 09:10 Urine Appearance Clear (CLEAR) 08/04/23 09:10 Urine pH 5 (5-7) 08/04/23 09:10 Ur Specific [place] 1.015 (1.005-1.030) 08/04/23 09:10 Urine Protein Neg (Negative) 08/04/23 09:10 Urine Glucose (UA) Norm (Normal) 08/04/23 09:10 Urine Ketones Negative (Negative) 08/04/23 09:10 Urine Blood Neg (Negative) 08/04/23 09:10 Urine Nitrate Negative (Negative) 08/04/23 09:10 Urine Bilirubin Neg (Negative) 08/04/23 09:10 Urine Urobilinogen Norm mg/dL (Negative) 08/04/23 09:10 Ur Leukocyte Esterase Negative (Negative) 08/04/23 09:10 Hepatitis A IgM Ab Non-reactive (Nonreactive) 08/04/23 08:02 Hep Bs Antigen Non-reactive (Nonreactive) 08/04/23 08:02 Hep B Core IgM Ab Non-reactive (Nonreactive) 08/04/23 08:02 Hepatitis C Antibody Non-reactive (Nonreactive) 08/04/23 08:02 HIV 1&2 Ab & HIV 1 Ag Non-reactive (Non-Reactiv) 08/04/23 11:21 HIV 1&2 Antibody Non-reactive (Non-Reactiv) 08/04/23 11:21 Vitals Last Vital Signs Temp 97.8 F 08/06/23 07:24 Pulse 85 08/06/23 07:24 Resp 17 08/06/23 07:24 BP 104/72 08/06/23 07:24 Pulse Ox 98 08/06/23 07:24 O2 Del Method Room Air 08/06/23 07:24 Discharge Plan Discharge Patient Disposition: Home Condition: Stable Prescriptions: New oxycodone 5 mg Tablet 5 mg PO Q6H PRN (Reason: Moderate Pain) 7 Days Qty: 28 0RF Eliquis DVT-PE Treat 30D Start 5 mg (74 tabs) tablets,dose pack See Rx Instructions .ROUTE .COMPLEX Qty: 74 0RF Rx Instructions: orally per package directions Continued cetirizine [Zyrtec] 10 mg tablet 10 mg PO DAILY Qty: 30 0RF leflunomide 20 mg tablet 20 mg PO DAILY Qty: 30 3RF buspirone 10 mg tablet 10 mg PO BID Qty: 60 3RF trazodone 150 mg tablet 150 mg PO BEDTIME Qty: 30 2RF gabapentin 300 mg capsule 600 mg PO QID 30 Days Qty: 240 3RF Humira Pen 40 mg/0.8 mL pen injector kit 40 mg SUBCUT Q14D Qty: 2 3RF cholecalciferol (vitamin D3) [Vitamin D3] 25 mcg (1,000 unit) Capsule 50 mcg PO DAILY ondansetron 4 mg tablet,disintegrating 4 mg PO Q8H PRN (Reason: nausea and vomiting) Qty: 14 0RF triamterene-hydrochlorothiazid 37.5-25 mg capsule 1 cap PO DAILY tizanidine 2 mg tablet 2 mg PO TID PRN (Reason: RIB PAIN) acetaminophen-codeine 300-30 mg tablet 1 tab PO Q6H alprazolam 0.25 mg tablet 0.25 mg PO TID PRN (Reason: Anxiety) topiramate 200 mg tablet 200 mg PO BID Discharge Orders: Discharge Order (Routine); Ordered 08/06/23 Ordered By: Ryan Carrasquillo Referrals: Joaquin Mak MD [Primary Care Provider] - 1-3 days Aubrey Fine MD [Hospitalist] - 1 month Discharge Diet: Cardiac Discharge Activity: Resume usual activity Patient Instructions: Oxycodone, Rapid Release (By mouth), Apixaban (By mouth) (Eliquis), Opioid Safety Activity Restrictions/Additional Instructions: - I am discharging on Eliquis 10 mg twice daily (2 tabs twice daily)for 7 days, followed by 5 mg twice daily -Duration of Eliquis therapy will be determined by its cause at minimum 6 months or could be longer such as the rest of her life based upon its etiology ? Eliquis is a very strong blood thinner, if you develop bloody or black stools, or you have a significant traumatic fall or injury please go immediately to the emergency room ? Please have your primary care provider recheck your hemoglobin in 48 hours ? Please follow-up with Dr. Fine to investigate the etiology behind your blood clots ? If you have sudden onset chest pain or shortness of breath please go to the emergency room ? Please use oxycodone sparingly for pain, do not drive or operate heavy machinery or drink or take with any other controlled substances Discharge Attestations Time Spent in Discharge Care*: greater than 30 min Quality Metrics Clinical Quality Measures [ No reported AMI, CVA or VTE this stay] Coding Level of Care Code 88891 Total time (in minutes) for Discharge: 45 Diagnoses Transaminitis R74.01 Bilateral pulmonary embolism I26.99 Pulmonary infarct I26.99
[2023-08-06 13:20] VITALS: BP 104/72; PULSE 85; RESP 17; TEMP 36.6; O2SAT 98
[2023-08-07 21:50] LABS: Lupus Hexagonal Phas Confirm NEGATIVE (NEGATIVE)
[2023-08-07 21:54] LABS: PTT-LA-Screen 43 sec (< OR = 40)
== END 2023-08-06 12:00 | disposition home or self-care (01) | DRG 176 ==
LOC: ER 16:34 → MEDSURG 16:34
PROVIDERS: Admitting Provider Family Medicine; Emergency Provider Family Medicine; PCP Family Medicine; Visit Provider Family Medicine
DX: I26.99 Other pulmonary embolism without acute cor pulmonale (principal); R74.01 Elevation of levels of liver transaminase levels; Z90.710 Acquired absence of both cervix and uterus; Z87.891 Personal history of nicotine dependence; I10 Essential (primary) hypertension; R56.9 Unspecified convulsions; Z83.2 Family history of diseases of the blood and blood-forming organs and certain disorders involving the immune mechanism; F31.9 Bipolar disorder, unspecified; F41.9 Anxiety disorder, unspecified
CPT/HCPCS: 36415; 71275; 74176; 76700; 80048; 80053; 80061; 80074; 81003; 83036; 83516; 83605; 83880; 84443; 84484; 84703; 85025; 85613; 85651; 85730; 86140; 86304; 87806; 93005; 93306; 93970; 94664; 96365; 96366; 96375; 99285; J1170; J1644; J2270; J2405; J7030; Q9967

== ENCOUNTER 2023-08-09 14:17 | Emergency (ER) | payer MEDICAID, SELFPAY ==
--- NOTE | 2023-08-09 14:19 | XR_ITS ---
WS: [id number] Exam: XR chest 1V portable [id number] Date/Time of Exam: 08/09/2023 2:19 PM Reason For Exam: cp Compared to most recent exam 07/30/2023. Mild plaque atelectasis of the LEFT lower lobe. The lungs are fully expanded and otherwise clear. Nor mal cardiomediastinal silhouette. Bony structures are intact. XR/XR chest 1V portable [id number] IMPRESSION: 1. Mild plaque atelectasis in the LEFT lower lobe. No other significant finding .
--- NOTE | 2023-08-09 14:20 | ECG_ITS ---
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 Measurements Intervals [place] Rate: 97 P: 67 AR: 127 QRS: 78 QRSD: 73 T: -5 QT: 317 QTc: 404 Interpretive Statements Sinus rhythm NONSPECIFIC ST & T-WAVE ABNORMALITY Compared to ECG 08/04/2023 17:38:47 T-wave abnormality now present Electronically Signed On 08-10-2023 13:37:49 CDT by Marcel Zhang M.D. [id number]
[2023-08-09 14:30] VITALS: BP 126/85; PULSE 102; RESP 20; TEMP 36.8; O2SAT 97; BMI 23.2
[2023-08-09 14:52] LABS: Basophils # 0.1 10^3/uL (0.0-0.1); Basophils % 0.8 %; Eosinophils % 0.5 %; Hematocrit 43.6 % (36-47); Lymphocytes # 1.3 10^3/uL (0.8-4.8); Mean Corpuscular HGB Conc 32.3 g/dL (30-55); Mean Corpuscular Hemoglobin 30.7 pg (27-33); Mean Corpuscular Volume 94.8 fl (85-98); Mean Platelet Volume 9.6 fL (7.4-10.4); Monocytes # 0.4 10^3/uL (0.2-0.9); Neutrophils # 4.43 10^3/uL (1.8-7.7); Neutrophils % 70.4 %; Nucleated Red Blood Cells % 0 %; Platelet Count 375 10^3/cmm (157-399); Red Cell Distribution Width 13.3 % (12.1-15.1); White Blood Count 6.29 10^3/uL (3.29-11.43)
--- NOTE | 2023-08-09 14:53 | ED_ITS ---
HPI - Chest Pain 2 General: Chief Complaint: Chest Pain Stated Complaint: chest pains, sob Time Seen by Provider: 08/09/23 14:49 Source: patient Mode of arrival: ambulatory Limitations: no limitations History of Present Illness: 32-year-old female who had recently been admitted here with a pulmonary embolism was discharged 3 days ago states that last night started having some chest pains that were sharp in nature along with some slight dyspnea. She is in no distress here no hypoxia she is on Eliquis states she has been taking her Eliquis. Associated symptoms: Reports dyspnea; Deny abdominal pain, fever(s), nausea or vomiting Review of Systems 2 Const: Denies: fever(s), chills, body aches or change in appetite ENMT: Denies: throat pain or dental pain Card: Denies: chest pain Resp: Reports: dyspnea GI: Denies: abdominal pain, nausea, vomiting or diarrhea : Denies: dysuria Musc: Reports: neck pain; Denies: back pain Skin/Breast: Denies: rash Neuro: Denies: headache(s) PFSH ED 2 PFSH: Medical History Vapes nicotine containing substance Seizures Hx of migraines Ovarian mass, right Family history of psoriasis in father High risk medication use Inflammatory back pain Inflammatory arthritis Psychiatric care Other [facility] (current) drug therapy Anxiety Bipolar disorder, unspecified Acute abscess of female pelvis Abnormal uterine bleeding (AUB) Abnormal Papanicolaou smear of cervix with positive human papilloma virus (HPV) test Endometriosis determined by laparoscopy Surgical History History of cholecystectomy History of hysterectomy History of laparoscopy 2010-for endometriosis 2015- for Mirena removal 01/17/2017-performed by Dr. Mosher at [facility] History of tubal ligation 12/2015- per Dr. Mosher at [facility] H/O removal of cyst [address] Mosher Family History Mother Stroke Hyperlipidemia Family history of thyroid problem Hypertension Father Degenerative disc disease Diabetes Unknown Breast cancer maternal great aunt Grandmother Ovarian cancer maternal Uterine cancer maternal Other Cancer Chronic kidney disease (CKD) Rheumatoid arthritis Denies family history of Lupus Social History Smoking and tobacco/nicotine status: former use of tobacco/nicotine Second hand smoke exposure: No Alcohol intake: never Substance/Drug Use: never Physical Exam 2 Const: COMMON NORMALS: no acute distress, patient oriented x3 and healthy appearing HENMT: COMMON NORMALS: normocephalic and atraumatic HEAD & SCALP: n ormocephalic and atraumatic Eye: COMMON NORMALS: Equal, round and reactive pupils present and EOMs intact bilaterally PUPIL: Yes Equal, round and reactive pupils present Neck/C-Spine: COMMON NORMALS: full ROM and supple Chest: COMMONS NORMALS: normal inspection of the chest Resp: COMMON NORMALS: normal respiratory effort, No retractions, No use of accessory muscles and clear to auscultation bilaterally AUSCULTATION: clear to auscultation bilaterally Cardio: COMMON NORMALS: regular rate, regular rhythm and No murmurs present (Cardio) RATE: regular rate RHYTHM: regular rhythm GI: COMMON NORMALS: Normal to inspection, nondistended, normoactive bowel sounds present, Soft to palpation, non-tender and no masses PALPATION: Yes Soft to palpation Extremity: COMMON NORMALS: normal to inspection and full ROM Neuro: COMMON NORMALS: patient oriented x3, moves all extremities and no focal motor deficits Psych: COMMON NORMALS: mental status grossly normal, Normal thought process present and cooperative THOUGHT PROCESS: Normal thought process present Skin: COMMON NORMALS: no rashes or lesions noted and no wounds GENERAL SKIN EXAM: no rashes or lesions noted Course 2 Vital Signs: Vital signs: Vital Signs Temperature 98.2 F 08/09/23 14:30 Pulse Rate 102 H 08/09/23 14:30 Respiratory Rate 20 H 08/09/23 14:30 Blood Pressure 126/85 08/09/23 14:30 Pulse Oximetry 97 08/09/23 14:30 Oxygen Delivery Me thod Room Air 08/09/23 14:30 MDM - Chest Pain Medical Decision Making Patient presents here with chest pain likely for pulmonary embolism troponin BNP here is normal no signs of heart strain her vitals are normal as well she is stable for discharge she is follow-up with PCP and return if worsening Medical Records I reviewed the patient's medical records. Lab Data I reviewed the patient's lab results. 08/09/23 14:23 08/09/23 14:23 Radiology Impressions Chest X-Ray 08/09/23 14:19 IMPRESSION: 1. Mild plaque atelectasis in the LEFT lower lobe. No other significant finding. Laboratory Results WBC 6.29 10^3/uL (3.29-11.43) 08/09/23 14:23 RBC 4.60 10^6/uL (3.85-5.65) 08/09/23 14:23 Hgb 14.10 g/dL (11.27-16.99) 08/09/23 14:23 Hct 43.6 % (36-47) 08/09/23 14:23 MCV 94.8 fl (85-98) 08/09/23 14:23 MCH 30.7 pg (27-33) 08/09/23 14:23 MCHC 32.3 g/dL (30-55) 08/09/23 14:23 RDW 13.3 % (12.1-15.1) 08/09/23 14:23 Plt Count 375 10^3/cmm (157-399) 08/09/23 14:23 MPV 9.6 fL (7.4-10.4) 08/09/23 14:23 Neut % (Auto) 70.4 % 08/09/23 14:23 Lymph % (Auto) 21.0 % 08/09/23 14:23 [place] % (Auto) 7.0 % 08/09/23 14:23 Eos % (Auto) 0.5 % 08/09/23 14:23 Baso % (Auto) 0.8 % 08/09/23 14:23 Neut # (Auto) 4.43 10^3/uL (1.8-7.7) 08/09/23 14:23 Lymph # (Auto) 1.3 10^3/uL (0.8-4.8) 08/09/23 14:23 [place] # (Auto) 0.4 10^3/uL (0.2-0.9) 08/09/23 14:23 Eos # (Auto) 0.0 10^3/uL (0.0-0.8) 08/09/23 14:23 Baso # (Auto) 0.1 10^3/uL (0.0-0.1) 08/09/23 14:23 Nucleated RBC % (auto) 0 % 08/09/23 14:23 Nucleated RBCs # 0.0 /100WBC 08/09/23 14:23 Sodium 141 mmol/L (136-145) 08/09/23 14:23 Potassium 3.5 mmol/L (3.5-5.1) 08/09/23 14:23 Chloride 106 mmol/L (98-107) 08/09/23 14:23 Carbon Dioxide 21 mmol/L (22-29) L 08/09/23 14:23 Anion Gap 17.5 (5-19) 08/09/23 14:23 BUN 13 mg/dL (6-20) 08/09/23 14:23 Creatinine 0.7 mg/dL (0.5-0.9) 08/09/23 14:23 GFR Calculation 96.4 mL/min (90-130) 08/09/23 14:23 Glucose 89 mg/dL (65-115) 08/09/23 14:23 Calculated Osmolality 292 mOsm/kg (285-295) 08/09/23 14:23 Calcium 9.7 mg/dL (8.5-10.5) 08/09/23 14:23 Total Bilirubin 0.3 mg/dL (0.15-1.2) 08/09/23 14:23 AST 43 U/L (0-32) H 08/09/23 14:23 ALT 107 U/L (0-33) H 08/09/23 14:23 Alkaline Phosphatase 278 U/L (35-105) H 08/09/23 14:23 Troponin T Baseline < 6 ng/L (0-10) 08/09/23 14:23 NT-Pro-B Natriuret Pep < 36 pg/mL (0-125) 08/09/23 14:23 Total Protein 8.0 g/dL (6.6-8.7) 08/09/23 14:23 Albumin 4.6 g/dL (3.5-5.2) 08/09/23 14:23 Globulin 3.4 g/dL (1.3-4.6) 08/09/23 14:23 All radiology interpretation(s) finalized by discharge Discharge Plan Discharge Patient Disposition: Home Clinical Impression: Bilateral pulmonary embolism, Chest pain Condition: Stable Prescriptions: No Action cetirizine [Zyrtec] 10 mg tablet 10 mg PO DAILY Qty: 30 0RF leflunomide 20 mg tablet 20 mg PO DAILY Qty: 30 3RF buspirone 10 mg tablet 10 mg PO BID Qty: 60 3RF trazodone 150 mg tablet 150 mg PO BEDTIME Qty: 30 2RF gabapentin 300 mg capsule 600 mg PO QID 30 Days Qty: 240 3RF Humira Pen 40 mg/0.8 mL pen injector kit 40 mg SUBCUT Q14D Qty: 2 3RF cholecalciferol (vitamin D3) [Vitamin D3] 25 mcg (1,000 unit) Capsule 50 mcg PO DAILY ondansetron 4 mg tablet,disintegrating 4 mg PO Q8H PRN (Reason: nausea and vomiting) Qty: 14 0RF triamterene-hydrochlorothiazid 37.5-25 mg capsule 1 cap PO DAILY tizanidine 2 mg tablet 2 mg PO TID PRN (Reason: RIB PAIN) acetaminophen-codeine 300-30 mg tablet 1 tab PO Q6H alprazolam 0.25 mg tablet 0.25 mg PO TID PRN (Reason: Anxiety) topiramate 200 mg tablet 200 mg PO BID oxycodone 5 mg Tablet 5 mg PO Q6H PRN (Reason: Moderate Pain) 7 Days Qty: 28 0RF Eliquis DVT-PE Treat 30D Start 5 mg (74 tabs) tablets,dose pack See Rx Instructions .ROUTE .COMPLEX Qty: 74 0RF Rx Instructions: orally per package directions Discharge Orders: Discharge ED (Routine); Ordered 08/09/23 Ordered By: Ramirez Elizabeth Referrals: Joaquin Mak MD [Primary Care Provider] - Discharge Diet: Advance as tolerated Discharge Activity: Resume usual activity Patient Instructions: Chest Pain (ED), Pulmonary Embolism (ED) Coding Level of Care Code ED Production Administrator for Mark Berg
[2023-08-09 15:10] LABS: Troponin(5th) Baseline < 6 ng/L (0-10)
[2023-08-09 15:18] LABS: Alanine Aminotransferase 107 U/L (0-33); Albumin Level 4.6 g/dL (3.5-5.2); Alkaline Phosphatase 278 U/L (35-105); Anion Gap 17.5 (5-19); Aspartate Amino Transferase 43 U/L (0-32); Blood Urea Nitrogen 13 mg/dL (6-20); Calcium 9.7 mg/dL (8.5-10.5); Carbon Dioxide 21 mmol/L (22-29); Chloride 106 mmol/L (98-107); Creatinine Clr Calc Pharmacy 94.1314; Globulin 3.4 g/dL (1.3-4.6); Glomerular Filtration Rate 96.4 mL/min (90-130); Glucose 89 mg/dL (65-115); NT Pro B Type Natriuretic Pept < 36 pg/mL (0-125); Osmolality Calculated 292 mOsm/kg (285-295); Potassium 3.5 mmol/L (3.5-5.1); Sodium 141 mmol/L (136-145); Total Bilirubin 0.3 mg/dL (0.15-1.2)
[2023-08-09] MEDS: morphine 4 mg/mL SDV 1 mL IM (15:58)
[2023-08-09 16:01] VITALS: BP 150/95; PULSE 94; O2SAT 98
[2023-08-09 16:15] VITALS: BP 122/92; PULSE 90; O2SAT 97
[2023-08-09 16:34] LABS: Troponin 5 2HR Delta 0.00001 ABS# (0-10)
[2023-08-09 16:54] VITALS: BP 127/91; PULSE 88; O2SAT 98
== END 2023-08-09 16:45 | disposition home or self-care (01) ==
PROVIDERS: Emergency Provider Emergency Medicine; PCP Family Medicine
DX: R07.9 Chest pain, unspecified (principal); I26.99 Other pulmonary embolism without acute cor pulmonale; Z79.01 Long term (current) use of anticoagulants; Z87.891 Personal history of nicotine dependence
CPT/HCPCS: 36415; 71045; 80053; 83880; 84484; 85025; 93005; 96372; 99285; J2270

== ENCOUNTER → 2023-08-16 10:47 | Outpatient (BNVA) | payer MEDICAID, SELFPAY | PROVIDERS: PCP Family Medicine; Visit Provider Physician Assistant | DX: R76.8 Other specified abnormal immunological findings in serum (principal); I26.99 Other pulmonary embolism without acute cor pulmonale; Z79.899 Other long term (current) drug therapy; M19.90 Unspecified osteoarthritis, unspecified site; M22.40 Chondromalacia patellae, unspecified knee; M23.305 Other meniscus derangements, unspecified medial meniscus, unspecified knee; M25.562 Pain in left knee | CPT/HCPCS: 36415; 85613; 85730; 86146; 86147; 86160; 86162; 86235; 86255; 86376; 86800 ==

== ENCOUNTER 2023-09-05 08:00 | Outpatient (CLI) | payer MEDICAID, SELFPAY ==
--- NOTE | 2023-09-05 | MR_ITS ---
NOTE: Equipment failure, report did not cross at time of signing. Original Signature date and time was: 09/05/23 @ 0952 MRI CERVICAL SPINE with and without contrast HISTORY: Neck pain COMPARISON: None available. Technique: Multiplanar, multisequence noncontrast imaging of the cervical spine. Postcontrast MultiHance 11 mL. Mild straightening of the normal cervical lordosis. Signal within the cervical cord is normal. Visualized posterior fossa is unremarkable. Craniocervical junction, C1 and C2 relationship, odontoid process and soft tissues are normal. C2-C3: Normal. C3-C4: Diffuse disc bulging with osteophytic ridging. RIGHT foraminal disc osteophyte displacing the nerve roots. Mild central and bilateral foraminal stenosis with greater encroachment RIGHT foramen. C4-C5: Mild disc bulging with mild central stenosis. C5-C6: Mild annular disc bulging with a small RIGHT foraminal osteophyte displacing the nerve roots. Very mild central stenosis. Smaller LEFT foraminal osteophyte without stenosis. C6-C7: Mild osteophytic ridging. C7-T1: Normal. Paraspinal soft tissue are normal. IMPRESSION: 1. Mild narrowing of the central canal from C3-4 to C5-6. 2. C3-4: Mild central and bilateral foraminal stenosis. Greater stenosis RIGHT foramen due to disc osteophyte complex displacing the nerve root. 3. C5-6: Bilateral foraminal osteophytes, RIGHT greater than LEFT. MTDD
[2023-09-05] MEDS: gadobenate dimeglumine 20 mL vial IV (09:23)
== END 2023-09-05 08:01 | disposition home or self-care (01) ==
PROVIDERS: PCP Family Medicine; Visit Provider Orthopaedic Surgery
DX: M48.02 Spinal stenosis, cervical region (principal); M25.78 Osteophyte, vertebrae; M50.31 Other cervical disc degeneration, high cervical region; M50.321 Other cervical disc degeneration at C4-C5 level; M50.322 Other cervical disc degeneration at C5-C6 level
CPT/HCPCS: 72156; 73030; A9577

== ENCOUNTER 2023-09-06 12:33 | Oncology outpatient (recurring) (ONCR) | payer MEDICAID, SELFPAY ==
[2023-08-22 12:17] LABS: Basophils # 0.1 10^3/uL (0.0-0.1); Basophils % 1.4 %; Eosinophils # 0.3 10^3/uL (0.0-0.8); Eosinophils % 4.5 %; Hematocrit 37.7 % (36-47); Lymphocytes # 2.2 10^3/uL (0.8-4.8); Lymphocytes % 32.5 %; Mean Corpuscular HGB Conc 32.4 g/dL (30-55); Mean Corpuscular Hemoglobin 30.7 pg (27-33); Mean Platelet Volume 10.5 fL (7.4-10.4); Monocytes # 0.5 10^3/uL (0.2-0.9); Monocytes % 8.1 %; Neutrophils # 3.54 10^3/uL (1.8-7.7); Neutrophils % 53.3 %; Nucleated Red Blood Cells % 0 %; Platelet Count 321 10^3/cmm (157-399); Red Blood Count 3.97 10^6/uL (3.85-5.65); Red Cell Distribution Width 13.5 % (12.1-15.1); White Blood Count 6.64 10^3/uL (3.29-11.43)
[2023-08-22 12:37] LABS: Alanine Aminotransferase 58 U/L (0-33); Albumin Level 4.4 g/dL (3.5-5.2); Alkaline Phosphatase 137 U/L (35-105); Anion Gap 15.1 (5-19); Aspartate Amino Transferase 44 U/L (0-32); Blood Urea Nitrogen 17 mg/dL (6-20); Calcium 9.6 mg/dL (8.5-10.5); Carbon Dioxide 22 mmol/L (22-29); Chloride 104 mmol/L (98-107); Globulin 2.6 g/dL (1.3-4.6); Glomerular Filtration Rate 82.6 mL/min (90-130); Glucose 87 mg/dL (65-115); Osmolality Calculated 287 mOsm/kg (285-295); Potassium 3.1 mmol/L (3.5-5.1); Sodium 138 mmol/L (136-145); Total Bilirubin 0.2 mg/dL (0.15-1.2)
[2023-08-22 12:39] LABS: D Dimer <= 0.27 ug/mLFEU (0-0.59)
[2023-08-28 11:14] LABS: CARDIOLIPIN AB (IGA) <2.0 APL-U/mL; CARDIOLIPIN AB (IGG) <2.0 GPL-U/mL; CARDIOLIPIN AB (IGM) <2.0 MPL-U/mL
[2023-08-29 05:05] LABS: Beta 2 Glycoprotein IGA <2.0 U/mL (<20.0); Beta 2 Glycoprotein IGG <2.0 U/mL (<20.0); Beta 2 Glycoprotein IGM <2.0 U/mL (<20.0)
[2023-09-02 07:08] LABS: PROTHROMBIN (FACTOR II) 20210G NEGATIVE
[2023-09-02 07:34] LABS: Factor 5 Leiden Mutation NEGATIVE
--- NOTE | 2023-09-06 12:30 | CT_ITS ---
WS: [id number] CTA OF THE CHEST WITH PULMONARY EMBOLISM PROTOCOL TECHNIQUE: High-resolution contrast enhanced CTA of the chest with coronal and sagittal reformatted i santinos with pulmonary embolism protocol. MIP images are also reviewed. CLINICAL INFORMATION: bilateral pulmonary embolism COMPARISON: 08/04/2023 DLP: 150.[address] scans at [facility] use at least one of these dose optimization techniques: automated e xposure control; mA and/or kV adjustment per patient size (includes targeted exams where dose is matc hed to clinical indication); or iterative reconstruction. FINDINGS: Proximal main pulmonary arteries are normal. Previously described pulmonary emboli have for the most part recanalized. No evidence of new or progressive embolus. A few septations/tiny filling defects visualized in the areas of prior thrombus. No evidence of RIGHT heart strain Lobulated opacity LEFT lower lobe persistent but improved compared to previous. Lungs are otherwise w ell aerated. No pleural fluid. No other acute findings. CT/CT angio chest PE protcl [id number] IMPRESSION: Previous described pulmonary embolus is recanalized with a few tiny residual fi lling defects. No evidence of new or progressive embolus.
[2023-09-06] MEDS: iohexol 350 mg/mL 500 mL Btl (per mL) IV (12:49)
== END 2023-09-19 23:59 | disposition home or self-care (01) ==
LOC: RAD 12:33 → ONCMED 09-17 11:32
PROVIDERS: PCP Family Medicine; Visit Provider Internal Medicine Medical Oncology
DX: I26.99 Other pulmonary embolism without acute cor pulmonale (principal)
CPT/HCPCS: 36415; 71275; 80053; 81241; 85025; 85210; 85378; 86146; 86147; Q9967

== ENCOUNTER 2023-09-13 21:29 | Emergency (ER) | payer MEDICAID, SELFPAY ==
[2023-09-13 21:30] VITALS: BP 146/83; PULSE 108; RESP 16; TEMP 36.8; O2SAT 97
[2023-09-13 22:13] VITALS: BP 123/78; PULSE 101; RESP 16; TEMP 36.8; O2SAT 95
[2023-09-13 22:26] LABS: Basophils # 0.1 10^3/uL (0.0-0.1); Basophils % 1.8 %; Hematocrit 37.1 % (36-47); Lymphocytes # 1.9 10^3/uL (0.8-4.8); Lymphocytes % 47.4 %; Mean Corpuscular HGB Conc 33.2 g/dL (30-55); Mean Corpuscular Hemoglobin 31.8 pg (27-33); Mean Corpuscular Volume 95.9 fl (85-98); Mean Platelet Volume 10.2 fL (7.4-10.4); Monocytes # 0.5 10^3/uL (0.2-0.9); Monocytes % 11.8 %; Neutrophils # 1.52 10^3/uL (1.8-7.7); Nucleated Red Blood Cells % 0 %; Platelet Count 347 10^3/cmm (157-399); Red Blood Count 3.87 10^6/uL (3.85-5.65); White Blood Count 3.99 10^3/uL (3.29-11.43)
[2023-09-13 22:30] VITALS: BP 123/78; PULSE 93; RESP 16; O2SAT 96
[2023-09-13 22:41] LABS: INR 1.21 (0.8-1.2)
[2023-09-13 22:48] LABS: Alanine Aminotransferase 30 U/L (0-33); Albumin Level 4.4 g/dL (3.5-5.2); Alkaline Phosphatase 69 U/L (35-105); Aspartate Amino Transferase 17 U/L (0-32); Blood Urea Nitrogen 16 mg/dL (6-20); Calcium 8.7 mg/dL (8.5-10.5); Carbon Dioxide 24 mmol/L (22-29); Chloride 108 mmol/L (98-107); Creatinine Clr Calc Pharmacy 78.7839; Globulin 2.4 g/dL (1.3-4.6); Glomerular Filtration Rate 82.6 mL/min (90-130); Glucose 90 mg/dL (65-115); Osmolality Calculated 303 mOsm/kg (285-295); Sodium 146 mmol/L (136-145); Total Bilirubin 0.2 mg/dL (0.15-1.2); Total Protein 6.8 g/dL (6.6-8.7)
--- NOTE | 2023-09-13 23:01 | ED_ITS ---
HPI - GI Bleed 2 General: Chief complaint: GI Bleed Stated complaint: abd pain blood in stool Time Seen by Provider: 09/13/23 21:40 History of Present Illness: 32-year-old female comes in today with c omplaints of blood with stools. Patient reports some diarrhea stools. Patient is on Eliquis for a pulmonary embolism. Patient reports some generalized abdominal pain. Patient appears nontoxic. Patient denies any vomiting. Patient has a history of bipolar disorder, endometriosis, Review of Systems 2 General: Reports: 10 or more systems reviewed and unremarkable except in HPI and below PFSH ED 2 PFSH: Medical History Bilateral pulmonary embolism Vapes nicotine containing substance Seizures Hx of migraines Ovarian mass, right Family history of psoriasis in father High risk medication use Inflammatory back pain Inflammatory arthritis Psychiatric care Other skilled nursing (current) drug therapy Anxiety Bipolar disorder, unspecified Acute abscess of female pelvis Abnormal uterine bleeding (AUB) Abnormal Papanicolaou smear of cervix with positive human papilloma virus (HPV) test Endometriosis determined by laparoscopy Surgical History History of hysterectomy with unilateral oophorectomy (2019) Hysterectomy with left oophorectomy History of right oophorectomy (06/20/22) History of cholecystectomy (2020) History of laparoscopy 2010-for endometriosis 2015- for Mirena removal 01/17/2017-performed by Dr. Mosher at [facility] History of tubal ligation 12/2015- per Dr. Mosher at [facility] H/O removal of cyst [address] Mosher Family History Mother Stroke Hyperlipidemia Family history of thyroid problem Hypertension Cancer of tongue Father Degenerative disc disease Diabetes Unknown Breast cancer maternal great aunt Grandmother Ovarian cancer maternal Uterine cancer maternal Other Cancer Chronic kidney disease (CKD) Rheumatoid arthritis Denies family history of Lupus Social History Smoking and tobacco/nicotine status: never used tobacco/nicotine Second hand smoke exposure: No Alcohol intake: never Substance/Drug Use: never Physical Exam 2 Const: COMMON NORMALS: alert HENMT: COMMON NORMALS: normocephalic HEAD & SCALP: normocephalic Neck/C-Spine: COMMON NORMALS: full ROM Chest: COMMONS NORMALS: normal inspection of the chest Resp: COMMON NORMALS: normal respiratory effort Cardio: COMMON NORMALS: regular rate RATE: regular rate GI: COMMON NORMALS: Soft to palpation AUSCULTATION: Yes Hyperactive bowel sounds present PALPATION: Yes Soft to palpation and Yes Tenderness to palpation present (GI) Back/Pelvis: COMMON NORMALS: thoracic and lumbar spine normal to inspection Extremity: COMMON NORMALS: full ROM Neuro: SENSORIUM/ORIENTATION: Yes alert Skin: COMMON NORMALS: turgor normal GENERAL SKIN EXAM: turgor normal Course 2 Vital Signs: Vital signs: Vital Signs Temperature 98.2 F 09/13/23 22:13 Pulse Rate 96 09/13/23 23:33 Respiratory Rate 16 09/13/23 23:33 Blood Pressure 132/70 09/13/23 23:33 Pulse Oximetry 96 09/13/23 23:33 Oxygen Delivery Me thod Room Air 09/13/23 23:33 MDM - GI Bleed Medical Decision Making 32-year-old female presents today with complaints of generalized abdominal pain along with diarrhea stools and blood in stool. Patient appears nontoxic. Patient appears in moderate pain. Differential diagnosis includes hemorrhoid, colitis, adverse drug effect. CBC noted a hemoglobin of 12 and a white blood cell count of 3.99. CMP was unremarkable. PT with INR was 1.21, CT of the abdomen pelvis was unremarkable. Recommended patient follow-up with surgeon for colonoscopy for further evaluation of blood in stool and diarrhea stools. Patient should follow-up with primary care otherwise for other recommendations. Patient was given 1 L of IV fluids for possible mild dehydration and some morphine for her abdominal pain. Patient be continued on loperamide to help with diarrhea stools and abdominal cramping. Lab Data 09/13/23 22:15 09/13/23 22:15 Radiology Impressions Abdomen/Pelvis CT 09/13/23 23:01 IMPRESSION: No acute findings within the abdomen or pelvis. Laboratory Results WBC 3.99 10^3/uL (3.29-11.43) 09/13/23 22:15 RBC 3.87 10^6/uL (3.85-5.65) 09/13/23 22:15 Hgb 12.30 g/dL (11.27-16.99) 09/13/23 22:15 Hct 37.1 % (36-47) 09/13/23 22:15 MCV 95.9 fl (85-98) 09/13/23 22:15 MCH 31.8 pg (27-33) 09/13/23 22:15 MCHC 33.2 g/dL (30-55) 09/13/23 22:15 RDW 14.0 % (12.1-15.1) 09/13/23 22:15 Plt Count 347 10^3/cmm (157-399) 09/13/23 22:15 MPV 10.2 fL (7.4-10.4) 09/13/23 22:15 Neut % (Auto) 38.0 % 09/13/23 22:15 Lymph % (Auto) 47.4 % 09/13/23 22:15 [place] % (Auto) 11.8 % 09/13/23 22:15 Eos % (Auto) 1.0 % 09/13/23 22:15 Baso % (Auto) 1.8 % 09/13/23 22:15 Neut # (Auto) 1.52 10^3/uL (1.8-7.7) L 09/13/23 22:15 Lymph # (Auto) 1.9 10^3/uL (0.8-4.8) 09/13/23 22:15 [place] # (Auto) 0.5 10^3/uL (0.2-0.9) 09/13/23 22:15 Eos # (Auto) 0.0 10^3/uL (0.0-0.8) 09/13/23 22:15 Baso # (Auto) 0.1 10^3/uL (0.0-0.1) 09/13/23 22:15 Nucleated RBC % (auto) 0 % 09/13/23 22:15 Nucleated RBCs # 0.0 /100WBC 09/13/23 22:15 PT 15.70 SECONDS (12.1-14.9) H 09/13/23 22:15 INR 1.21 (0.8-1.2) H 09/13/23 22:15 Sodium 146 mmol/L (136-145) H 09/13/23 22:15 Potassium 4.0 mmol/L (3.5-5.1) 09/13/23 22:15 Chloride 108 mmol/L (98-107) H 09/13/23 22:15 Carbon Dioxide 24 mmol/L (22-29) 09/13/23 22:15 Anion Gap 18.0 (5-19) 09/13/23 22:15 BUN 16 mg/dL (6-20) 09/13/23 22:15 Creatinine 0.8 mg/dL (0.5-0.9) 09/13/23 22:15 GFR Calculation 82.6 mL/min (90-130) L 09/13/23 22:15 Glucose 90 mg/dL (65-115) 09/13/23 22:15 Calculated Osmolality 303 mOsm/kg (285-295) H 09/13/23 22:15 Calcium 8.7 mg/dL (8.5-10.5) 09/13/23 22:15 Total Bilirubin 0.2 mg/dL (0.15-1.2) 09/13/23 22:15 AST 17 U/L (0-32) 09/13/23 22:15 ALT 30 U/L (0-33) 09/13/23 22:15 Alkaline Phosphatase 69 U/L (35-105) 09/13/23 22:15 Total Protein 6.8 g/dL (6.6-8.7) 09/13/23 22:15 Albumin 4.4 g/dL (3.5-5.2) 09/13/23 22:15 Globulin 2.4 g/dL (1.3-4.6) 09/13/23 22:15 All radiology interpretation(s) finalized by discharge Discharge Plan Discharge Patient Disposition: Home Clinical Impression: Blood in stool Abdominal pain Qualifiers: Abdominal location: generalized Qualified Code(s): R10.84 - Generalized abdominal pain Diarrhea Qualifiers: Diarrhea type: unspecified type Qualified Code(s): R19.7 - Diarrhea, unspecified Condition: Stable Prescriptions: New loperamide 2 mg capsule 2 mg PO Q4H PRN (Reason: loose stool) Qty: 20 0RF No Action cetirizine [Zyrtec] 10 mg tablet 10 mg PO DAILY Qty: 30 0RF (DME) Hinged Knee Brace See Rx Instructions .Route .MEDSUPPLY Qty: 1 0RF Rx Instructions: As directed buspirone 10 mg tablet 10 mg PO BID Qty: 60 3RF trazodone 150 mg tablet 150 mg PO BEDTIME Qty: 30 2RF gabapentin 300 mg capsule 600 mg PO QID 30 Days Qty: 240 3RF Humira Pen 40 mg/0.8 mL pen injector kit 40 mg SUBCUT Q14D Qty: 2 3RF leflunomide 20 mg tablet 20 mg PO DAILY Qty: 30 3RF fluoxetine [Prozac] 20 mg capsule 20 mg PO DAILY Qty: 30 2RF cholecalciferol (vitamin D3) [Vitamin D3] 25 mcg (1,000 unit) Capsule 50 mcg PO DAILY triamterene-hydrochlorothiazid 37.5-25 mg capsule 1 cap PO DAILY tizanidine 2 mg tablet 2 mg PO TID PRN (Reason: RIB PAIN) acetaminophen-codeine 300-30 mg tablet 1 tab PO Q6H alprazolam 0.25 mg tablet 0.25 mg PO TID PRN (Reason: Anxiety) topiramate 200 mg tablet 200 mg PO BID Eliquis DVT-PE Treat 30D Start 5 mg (74 tabs) tablets,dose pack See Rx Instructions .ROUTE .COMPLEX Qty: 74 0RF Rx Instructions: orally per package directions Discharge Orders: Discharge ED (Routine); Ordered 09/13/23 Ordered By: Jeffrey Buchanan Referrals: Joaquin Mak MD [Primary Care Provider] - Discharge Diet: Usual diet Discharge Activity: Increase activity as tolerated Patient Instructions: Abdominal Pain (ED) Activity Restrictions/Additional Instructions: Use loperamide to help with diarrhea stools. Do plenty water and fluids. Follow-up with primary care in 2 to 3 days for recheck. Return to ER for fever greater than 100.4, feeling of passing out, or any concerns. Thank you for choosing [facility] for your healthcare needs today. Please realize that you were seen in the emergency department and that we are providing you with an emergency medical screening exam and this may not be a complete and all exclusive of all testing and/or medical workup we may need to determine your element or severity of your illness. It is very important that you follow-up as instructed with your primary care provider or specialist for the additional evaluation and to discuss your medical treatment plan. You may return to the emergency department should you have concerns or if your condition changes or worsens in any way. 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
--- NOTE | 2023-09-13 23:01 | CTR_ITS ---
PROCEDURE INFORMATION: Exam: CT Abdomen And Pelvis With Contrast Exam date and time: 09/13/2023 11:12 PM Age: 32 years old Clinical indication: Abdominal pain; Generalized; Prior surgery; Surgery date: 6+ months; Surgery type: Gb. Full hysterectomy. Patient HX: Diffuse abd pain with tarry stool. Currently anticoagulated for pe. ; Additional info: Generalized abd pain TECHNIQUE: Imaging protocol: Computed tomography of the abdomen and pelvis with contrast. Radiation optimization: All CT scans at this facility use at least one of these dose optimization techniques: automated exposure control; mA and/or kV adjustment per patient size (includes targeted exams where dose is matched to clinical indication); or iterative reconstruction. Contrast material: OMNI 350; Contrast volume: 80 ml; Contrast route: INTRAVENOUS (IV); COMPARISON: CT abdomen pelvis wo con [id number] 08/04/2023 8:22 AM RADIATION DOSE METRICS: Total DLP (mGy-cm): 314.36 FINDINGS: Lungs: Atelectasis of the left lateral lung base pain Liver: Normal. No mass. Gallbladder and biliary ducts: Status post cholecystectomy. Pancreas: Normal. No ductal dilation. Spleen: Normal. No splenomegaly. Adrenal glands: Normal. No mass. Kidneys and ureters: Normal. No hydronephrosis. Stomach and bowel: Unremarkable. No obstruction. No mucosal thickening. Appendix: No evidence of appendicitis. Intraperitoneal space: Unremarkable. No free air. No significant fluid collection. Vasculature: Unremarkable. No abdominal aortic aneurysm. Lymph nodes: Unremarkable. No enlarged lymph nodes. Urinary bladder: Unremarkable as visualized. Reproductive: Status post hysterectomy. Simple cyst within the left adnexa measuring approximately 2.6 cm likely physiologic. Bones/joints: Unremarkable. No acute fracture. Soft tissues: Unremarkable. CT/CT abdomen pelvis w con* [id number] IMPRESSION: No acute findings within the abdomen or pelvis.
[2023-09-13] MEDS: iohexol 350 mg/mL 500 mL Btl (per mL) IV (23:14)
[2023-09-13] MEDS: ondansetron 2 mg/ML SDV 2 mL 4 MG IVP (23:30)
[2023-09-13 23:31] VITALS: RESP 16
[2023-09-13] MEDS: morphine 4 mg/mL SDV 1 mL IVP (23:31)
[2023-09-13] MEDS: sodium chloride 0.9% 1,000 ML 999 ML IV (23:32)
[2023-09-13 23:33] VITALS: BP 132/70; PULSE 96; RESP 16; O2SAT 96
[2023-09-14] VITALS: PULSE 80; RESP 16; O2SAT 96
[2023-09-14 00:30] VITALS: BP 132/70; PULSE 88; RESP 16; O2SAT 96
[2023-09-14 00:46] VITALS: BP 132/70; PULSE 88; RESP 16; TEMP 36.8; O2SAT 96
[2023-09-14 02:00] VITALS: BP 106/68; PULSE 89; RESP 16; O2SAT 98
--- NOTE | 2023-09-17 07:37 | DCPLANNER ---
messaged gen surg for er f/u
== END 2023-09-14 02:24 | disposition home or self-care (01) ==
PROVIDERS: Emergency Medicine; Emergency Provider Nurse Practitioner Family; PCP Family Medicine
DX: K92.1 Melena (principal); R10.84 Generalized abdominal pain; R19.7 Diarrhea, unspecified; Z79.01 Long term (current) use of anticoagulants
CPT/HCPCS: 36415; 74177; 80053; 85025; 85610; 96374; 96375; 99285; J2270; J2405; J7030; Q9967

== ENCOUNTER 2023-09-28 16:05 | Emergency (ER) | payer MEDICAID, SELFPAY ==
[2023-09-28 17:50] LABS: Basophils # 0.1 10^3/uL (0.0-0.1); Basophils % 1.5 %; Eosinophils # 0.2 10^3/uL (0.0-0.8); Eosinophils % 3.5 %; Hematocrit 40.3 % (36-47); Lymphocytes # 1.3 10^3/uL (0.8-4.8); Lymphocytes % 23.5 %; Mean Corpuscular HGB Conc 32.3 g/dL (30-55); Mean Corpuscular Volume 96.2 fl (85-98); Mean Platelet Volume 10.9 fL (7.4-10.4); Monocytes # 0.5 10^3/uL (0.2-0.9); Neutrophils # 3.33 10^3/uL (1.8-7.7); Neutrophils % 62.1 %; Nucleated Red Blood Cells % 0 %; Platelet Count 260 10^3/cmm (157-399); Red Blood Count 4.19 10^6/uL (3.85-5.65); Red Cell Distribution Width 13.2 % (12.1-15.1); White Blood Count 5.36 10^3/uL (3.29-11.43)
[2023-09-28 17:52] VITALS: BP 123/86; PULSE 93; RESP 18; TEMP 37.1; O2SAT 95; BMI 22.6
[2023-09-28 18:05] LABS: Alanine Aminotransferase 87 U/L (0-33); Albumin Level 4.2 g/dL (3.5-5.2); Alkaline Phosphatase 147 U/L (35-105); Anion Gap 17.2 (5-19); Aspartate Amino Transferase 39 U/L (0-32); Blood Urea Nitrogen 13 mg/dL (6-20); Calcium 9.2 mg/dL (8.5-10.5); Carbon Dioxide 22 mmol/L (22-29); Chloride 106 mmol/L (98-107); Creatinine Clr Calc Pharmacy 106.9547; Globulin 2.6 g/dL (1.3-4.6); Glomerular Filtration Rate 115.1 mL/min (90-130); Glucose 109 mg/dL (65-115); Lipase 25 U/L (13-60); Osmolality Calculated 293 mOsm/kg (285-295); Potassium 4.2 mmol/L (3.5-5.1); Sodium 141 mmol/L (136-145); Total Bilirubin 0.2 mg/dL (0.15-1.2); Total Protein 6.8 g/dL (6.6-8.7)
[2023-09-28 19:00] VITALS: PULSE 90; RESP 16; O2SAT 96
--- NOTE | 2023-09-28 20:01 | CTR_ITS ---
PROCEDURE INFORMATION: Exam: CT Abdomen And Pelvis With Contrast Exam date and time: 09/28/2023 8:34 PM Age: 32 years old Clinical indication: Nausea and vomiting; Abdominal pain; Generalized; Prior surgery; Surgery date: 6+ months; Surgery type: Gb. Full hysterectomy. Patient HX: C/O diffuse abd pain with n/v. TECHNIQUE: Imaging protocol: Computed tomography of the abdomen and pelvis with contrast. Radiation optimization: All CT scans at this facility use at least one of these dose optimization techniques: automated exposure control; mA and/or kV adjustment per patient size (includes targeted exams where dose is matched to clinical indication); or iterative reconstruction. Contrast material: OMNI 350; Contrast volume: 80 ml; Contrast route: INTRAVENOUS (IV); COMPARISON: CT abdomen pelvis w con* [id number] 09/13/2023 11:12 PM RADIATION DOSE METRICS: Total DLP (mGy-cm): 312.93 FINDINGS: Liver: Normal. No mass. Gallbladder and biliary ducts: Status post cholecystectomy. Pancreas: Normal. No ductal dilation. Spleen: Normal. No splenomegaly. Adrenal glands: Normal. No mass. Kidneys and ureters: Normal. No hydronephrosis. Stomach and bowel: Moderate stool burden. No evidence of obstruction. No wall thickening or pericolonic inflammatory change. Appendix: No evidence of appendicitis. Intraperitoneal space: Unremarkable. No free air. No significant fluid collection. Vasculature: Unremarkable. No abdominal aortic aneurysm. Lymph nodes: Unremarkable. No enlarged lymph nodes. Urinary bladder: Unremarkable as visualized. Reproductive: Status post hysterectomy. Bones/joints: Unremarkable. No acute fracture. Soft tissues: Unremarkable. CT/CT abdomen pelvis w con* [id number] IMPRESSION: No acute findings within the abdomen or pelvis. Redemonstration of a fluid attenuating 2.2 cm left adnexal cyst likely functional in etiology. No pelvic free fluid.
[2023-09-28 20:25] VITALS: RESP 18; O2SAT 99
[2023-09-28] MEDS: ondansetron 2 mg/ML SDV 2 mL 8 MG IVP (20:25)
[2023-09-28] MEDS: HYDROmorphone 1 mg/mL INJ 1 mL IVP (20:25)
[2023-09-28] MEDS: iohexol 350 mg/mL 500 mL Btl (per mL) IV (20:36)
--- NOTE | 2023-09-28 21:36 | ED_ITS ---
HPI - Abdominal Pain 2 General: Chief Complaint: Abdominal Pain Stated Complaint: abd pain Time Seen by Provider: 09/28/23 19:57 History of Present Illness: 32-year-old female with a history of pul monary embolism on Eliquis who presents emergency room with abdominal pain. She said this been going on for couple days. She has had some nausea and vomiting. She has had some black stools. She tried to get in with her doctor but they are in [place] she says. No chest pain. No shortness of breath. No altered mental status. No focal motor deficits. No known fevers. Related Data Home Medications Medication Instructions Recorded Confirmed cholecalciferol (vitamin D3) 25 50 mcg PO DAILY 06/15/22 09/13/23 mcg (1,000 unit) capsule (Vitamin D3) triamterene 37.5 1 cap PO DAILY 12/21/22 09/13/23 mg-hydrochlorothiazide 25 mg capsule acetaminophen 300 mg-codeine 30 mg 1 tab PO Q6H 08/06/23 09/13/23 tablet alprazolam 0.25 mg tablet 0.25 mg PO TID PRN Anxiety 08/06/23 09/13/23 tizanidine 2 mg tablet 2 mg PO TID PRN RIB PAIN 08/06/23 09/13/23 topiramate 200 mg tablet 200 mg PO BID 08/06/23 09/13/23 Previous Rx's Medication Instructions Recorded cetirizine 10 mg tablet (Zyrtec) 10 mg PO DAILY #30 tabs 07/26/22 buspirone 10 mg tablet 10 mg PO BID #60 tabs 06/06/23 gabapentin 300 mg capsule 600 mg (2 x 300 mg) PO QID 30 days 06/06/23 #240 caps trazodone 150 mg tablet 150 mg PO BEDTIME #30 tabs 06/06/23 adalimumab 40 mg/0.8 mL 40 mg (0.8 mL) SUBCUT Q14D #2 ea 06/07/23 subcutaneous pen kit (Humira Pen) apixaban 5 mg (74 tabs) tablets in See Rx Instructions PO .COMPLEX 08/06/23 a dose pack (Eliquis DVT-PE Treat #74 ea 30D Start) leflunomide 20 mg tablet 20 mg PO DAILY #30 tabs 08/15/23 Hinged Knee Brace #1 ea 08/16/23 fluoxetine 20 mg capsule (Prozac) 20 mg PO DAILY #30 caps 09/13/23 loperamide 2 mg capsule 2 mg PO Q4H PRN loose stool #20 09/13/23 caps ondansetron 8 mg disintegrating 8 mg PO Q6H #14 tabs 09/28/23 tablet tramadol 50 mg tablet 50 mg PO Q8H PRN pain #20 tabs 09/28/23 Allergies Allergy/AdvReac Type Severity Reaction Status Date / Time methylprednisolone Allergy Severe ALGY-Anaphy Verified 09/13/23 21:35 laxis Latex, Natural Rubber Allergy Intermediate rash, hives Verified 09/13/23 21:35 amoxicillin Allergy ALGY-Hives Verified 09/13/23 21:35 methotrexate AdvReac Intermediate migraines, Verified 09/13/23 21:35 N/V Review of Systems 2 Narrative: Constitutional symptoms: Negative except as documented in HPI. Skin symptoms: Negative except as documented in HPI. Eye symptoms: Negative except as documented in HPI. ENMT symptoms: Negative except as documented in HPI. Respiratory symptoms: Negative except as documented in HPI. Cardiovascular symptoms: Negative except as documented in HPI. Gastrointestinal symptoms: Negative except as documented in HPI. Genitourinary symptoms: Negative except as documented in HPI. Musculoskeletal symptoms: Negative except as documented in HPI. Neurologic symptoms: Negative except as documented in HPI. Psychiatric symptoms: Negative except as documented in HPI. Endocrine symptoms: Negative except as documented in HPI. PFSH ED 2 PFSH: Medical History Bilateral pulmonary embolism Vapes nicotine containing substance Seizures Hx of migraines Ovarian mass, right Family history of psoriasis in father High risk medication use Inflammatory back pain Inflammatory arthritis Psychiatric care Other longterm (current) drug therapy Anxiety Bipolar disorder, unspecified Acute abscess of female pelvis Abnormal uterine bleeding (AUB) Abnormal Papanicolaou smear of cervix with positive human papilloma virus (HPV) test Endometriosis determined by laparoscopy Surgical History History of hysterectomy with unilateral oophorectomy (2019) Hysterectomy with left oophorectomy History of right oophorectomy (06/20/22) History of cholecystectomy (2020) History of laparoscopy 2010-for endometriosis 2015- for Mirena removal 01/17/2017-performed by Dr. Mosher at [facility] History of tubal ligation 12/2015- per Dr. Mosher at [facility] H/O removal of cyst [address] Mosher Family History Mother Stroke Hyperlipidemia Family history of thyroid problem Hypertension Cancer of tongue Father Degenerative disc disease Diabetes Unknown Breast cancer maternal great aunt Grandmother Ovarian cancer maternal Uterine cancer maternal Other Cancer Chronic kidney disease (CKD) Rheumatoid arthritis Denies family history of Lupus Social History Smoking and tobacco/nicotine status: never used tobacco/nicotine Second hand smoke exposure: No Alcohol intake: never Substance/Drug Use: never Physical Exam 2 Narrative: EXAM NARRATIVE: General: Alert, no acute distress. Skin: Warm, dry. Head: Normocephalic, atraumatic. Neck: Supple, trachea midline. Eye: Extraocular movements are intact. Ears, nose, mouth and throat: mucosa moist. Cardiovascular: Regular, Normal peripheral perfusion. Respiratory: Lungs are clear to auscultation, respirations are non-labored, breath sounds are equal, Symmetrical chest wall expansion. Gastrointestinal: Soft, some mild mid abdominal tenderness to palpation, Non distended Musculoskeletal: Normal ROM, no deformity. Neurological: Alert and oriented, No focal neurological deficit observed. Psychiatric: Cooperative, appropriate mood & affect. Course 2 Vital Signs: Vital signs: Vital Signs Temperature 98.8 F 09/28/23 17:52 Pulse Rate 93 09/28/23 17:52 Respiratory Rate 18 09/28/23 20:25 Blood Pressure 123/86 09/28/23 17:52 Pulse Oximetry 99 09/28/23 20:25 Oxygen Delivery Me thod Room Air 09/28/23 17:52 MDM - Abdominal Pain Medical Decision Making Medical decision making: Differential diagnosis for this patient with nausea and vomiting including but not limited to and based on the above HPI, review of systems and physical exam: Urinary tract infection. Appendicitis. Cholecystis. colitis. small bowel obstruction. crohn's flare. pancreatitis. gastritis. peptic ulcer. cyclic vomiting. Viral illness. Influenza. COVID. - Workup - labwork and imaging ordered to evaluate, rule in and rule out above pathologies. Lab Review: Laboratory results were reviewed and interpreted by myself the emergency room physician. No leukocytosis. No anemia. No renal failure. Lipase is normal. CT of the abdomen pelvis: No acute findings. Left adnexal cyst that is the same as previous. This was reviewed and interpreted by myself the emergency room physician. I also reviewed the radiology report. I reviewed the patient's medical record. Reexamination: Patient says abdominal pain is better after receiving pain medications. Patient remained stable. No increased work of breathing. No altered mental status. No focal motor deficits. Assessment and plan: Abdominal pain -Dilaudid and Zofran in the emergency room. - Discharged home - Discussed findings and plan with patient. Answered any questions. - All laboratory values were reviewed and interpreted personally by myself, the ER physician - All imaging was reviewed and interpreted personally by myself, the ER physician. - Evaluation and treatment of this problem were appropriate in the emergency setting Lab Data 09/28/23 17:42 09/28/23 17:42 Labs/Radiology: Radiology Impressions Abdomen/Pelvis CT 09/28/23 20:01 IMPRESSION: No acute findings within the abdomen or pelvis. Redemonstration of a fluid attenuating 2.2 cm left adnexal cyst likely functional in etiology. No pelvic free fluid. Laboratory Results WBC 5.36 10^3/uL (3.29-11.43) 09/28/23 17:42 RBC 4.19 10^6/uL (3.85-5.65) 09/28/23 17:42 Hgb 13.00 g/dL (11.27-16.99) 09/28/23 17:42 Hct 40.3 % (36-47) 09/28/23 17:42 MCV 96.2 fl (85-98) 09/28/23 17:42 MCH 31.0 pg (27-33) 09/28/23 17:42 MCHC 32.3 g/dL (30-55) 09/28/23 17:42 RDW 13.2 % (12.1-15.1) 09/28/23 17:42 Plt Count 260 10^3/cmm (157-399) 09/28/23 17:42 MPV 10.9 fL (7.4-10.4) H 09/28/23 17:42 Neut % (Auto) 62.1 % 09/28/23 17:42 Lymph % (Auto) 23.5 % 09/28/23 17:42 Gonzales % (Auto) 9.0 % 09/28/23 17:42 Eos % (Auto) 3.5 % 09/28/23 17:42 Baso % (Auto) 1.5 % 09/28/23 17:42 Neut # (Auto) 3.33 10^3/uL (1.8-7.7) 09/28/23 17:42 Lymph # (Auto) 1.3 10^3/uL (0.8-4.8) 09/28/23 17:42 Gonzales # (Auto) 0.5 10^3/uL (0.2-0.9) 09/28/23 17:42 Eos # (Auto) 0.2 10^3/uL (0.0-0.8) 09/28/23 17:42 Baso # (Auto) 0.1 10^3/uL (0.0-0.1) 09/28/23 17:42 Nucleated RBC % (auto) 0 % 09/28/23 17:42 Nucleated RBCs # 0.0 /100WBC 09/28/23 17:42 Sodium 141 mmol/L (136-145) 09/28/23 17:42 Potassium 4.2 mmol/L (3.5-5.1) 09/28/23 17:42 Chloride 106 mmol/L (98-107) 09/28/23 17:42 Carbon Dioxide 22 mmol/L (22-29) 09/28/23 17:42 Anion Gap 17.2 (5-19) 09/28/23 17:42 BUN 13 mg/dL (6-20) 09/28/23 17:42 Creatinine 0.6 mg/dL (0.5-0.9) 09/28/23 17:42 GFR Calculation 115.1 mL/min (90-130) 09/28/23 17:42 Glucose 109 mg/dL (65-115) 09/28/23 17:42 Calculated Osmolality 293 mOsm/kg (285-295) 09/28/23 17:42 Calcium 9.2 mg/dL (8.5-10.5) 09/28/23 17:42 Total Bilirubin 0.2 mg/dL (0.15-1.2) 09/28/23 17:42 AST 39 U/L (0-32) H 09/28/23 17:42 ALT 87 U/L (0-33) H 09/28/23 17:42 Alkaline Phosphatase 147 U/L (35-105) H 09/28/23 17:42 Total Protein 6.8 g/dL (6.6-8.7) 09/28/23 17:42 Albumin 4.2 g/dL (3.5-5.2) 09/28/23 17:42 Globulin 2.6 g/dL (1.3-4.6) 09/28/23 17:42 Lipase 25 U/L (13-60) 09/28/23 17:42 All radiology interpretation(s) finalized by discharge Discharge Plan Discharge Patient Disposition: Home Clinical Impression: Abdominal pain Condition: Stable Prescriptions: New tramadol 50 mg tablet 50 mg PO Q8H PRN (Reason: pain) Qty: 20 0RF ondansetron 8 mg tablet,disintegrating 8 mg PO Q6H Qty: 14 0RF Rx Instructions: Take 1/2-1 tab every 6 hours as needed for nausea and vomiting No Action cetirizine [Zyrtec] 10 mg tablet 10 mg PO DAILY Qty: 30 0RF (DME) Hinged Knee Brace See Rx Instructions .Route .MEDSUPPLY Qty: 1 0RF Rx Instructions: As directed buspirone 10 mg tablet 10 mg PO BID Qty: 60 3RF trazodone 150 mg tablet 150 mg PO BEDTIME Qty: 30 2RF gabapentin 300 mg capsule 600 mg PO QID 30 Days Qty: 240 3RF Humira Pen 40 mg/0.8 mL pen injector kit 40 mg SUBCUT Q14D Qty: 2 3RF leflunomide 20 mg tablet 20 mg PO DAILY Qty: 30 3RF fluoxetine [Prozac] 20 mg capsule 20 mg PO DAILY Qty: 30 2RF cholecalciferol (vitamin D3) [Vitamin D3] 25 mcg (1,000 unit) Capsule 50 mcg PO DAILY triamterene-hydrochlorothiazid 37.5-25 mg capsule 1 cap PO DAILY tizanidine 2 mg tablet 2 mg PO TID PRN (Reason: RIB PAIN) acetaminophen-codeine 300-30 mg tablet 1 tab PO Q6H alprazolam 0.25 mg tablet 0.25 mg PO TID PRN (Reason: Anxiety) topiramate 200 mg tablet 200 mg PO BID Eliquis DVT-PE Treat 30D Start 5 mg (74 tabs) tablets,dose pack See Rx Instructions .ROUTE .COMPLEX Qty: 74 0RF Rx Instructions: orally per package directions loperamide 2 mg capsule 2 mg PO Q4H PRN (Reason: loose stool) Qty: 20 0RF Discharge Orders: Discharge ED (Routine); Ordered 09/28/23 Ordered By: Giulia Torres Referrals: Joaquin Mak MD [Primary Care Provider] - Discharge Diet: Advance as tolerated Discharge Activity: Increase activity as tolerated Patient Instructions: Abdominal Pain (ED), Opioid Safety, Pain Management Activity Restrictions/Additional Instructions: Thank you for choosing [facility] for your healthcare needs today. Please realize this is an emergency room and that we are providing you with a medical screening exam and this may not be complete and all inclusive of all the testing and or work up that you may need to determine your ailment or severity of your illness. You have been screened and evaluated and felt safe for discharge. Health conditions do change or evolve sometimes and as such it is important that you follow up with your Primary Doctor to be re checked, 3-5 days is a general good time frame for follow up. You are always welcome to return to the ED for re assessment if your symptoms are worsening or you have new concerns Coding Level of Care Code ED Admitting Representative for Mark Berg
[2023-09-29 00:41] VITALS: BP 128/78; PULSE 68; RESP 16; O2SAT 95
== END 2023-09-28 21:10 | disposition home or self-care (01) ==
PROVIDERS: Physician Assistant; Emergency Provider Emergency Medicine; PCP Family Medicine
DX: R10.9 Unspecified abdominal pain (principal)
CPT/HCPCS: 36415; 74177; 80053; 83690; 85025; 96374; 96375; 99285; J1170; J2405; Q9967

== ENCOUNTER 2023-11-05 19:30 | Emergency (ER) | payer MEDICAID, SELFPAY ==
[2023-11-05 19:43] VITALS: BP 125/81; PULSE 118; RESP 16; TEMP 37.9; O2SAT 98
[2023-11-05 21:36] LABS: Basophils # 0.1 10^3/uL (0.0-0.1); Basophils % 1.1 %; Eosinophils # 0.1 10^3/uL (0.0-0.8); Eosinophils % 1.7 %; Hematocrit 32.3 % (36-47); Lymphocytes # 1.5 10^3/uL (0.8-4.8); Lymphocytes % 32.9 %; Mean Corpuscular HGB Conc 32.8 g/dL (30-55); Mean Corpuscular Hemoglobin 31.2 pg (27-33); Mean Platelet Volume 10.3 fL (7.4-10.4); Monocytes # 0.6 10^3/uL (0.2-0.9); Neutrophils # 2.39 10^3/uL (1.8-7.7); Neutrophils % 52.1 %; Nucleated Red Blood Cells % 0 %; Platelet Count 234 10^3/cmm (157-399); Red Cell Distribution Width 13.2 % (12.1-15.1); White Blood Count 4.59 10^3/uL (3.29-11.43)
[2023-11-05 21:53] LABS: Alanine Aminotransferase 87 U/L (0-33); Albumin Level 3.6 g/dL (3.5-5.2); Alkaline Phosphatase 143 U/L (35-105); Anion Gap 16.8 (5-19); Aspartate Amino Transferase 84 U/L (0-32); Blood Urea Nitrogen 12 mg/dL (6-20); Calcium 8.5 mg/dL (8.5-10.5); Carbon Dioxide 22 mmol/L (22-29); Chloride 104 mmol/L (98-107); Creatinine Clr Calc Pharmacy 73.1604; Globulin 2.3 g/dL (1.3-4.6); Glomerular Filtration Rate 71.7 mL/min (90-130); Glucose 108 mg/dL (65-115); Lipase 27 U/L (13-60); Magnesium 1.5 mg/dL (1.7-2.3); Osmolality Calculated 288 mOsm/kg (285-295); Potassium 3.8 mmol/L (3.5-5.1); Sodium 139 mmol/L (136-145); Total Bilirubin 0.2 mg/dL (0.15-1.2); Total Protein 5.9 g/dL (6.6-8.7)
== END 2023-11-05 23:32 | disposition left against medical advice (07) ==
PROVIDERS: Emergency Medicine; Emergency Provider Family Medicine; PCP Family Medicine
DX: Z53.21 Procedure and treatment not carried out due to patient leaving prior to being seen by health care provider (principal)
CPT/HCPCS: 36415; 80053; 83690; 83735; 85025

== ENCOUNTER 2023-11-14 09:54 | Day surgery (SDC) | payer MEDICAID, SELFPAY ==
[2023-11-14 10:06] VITALS: BP 122/89; PULSE 88; RESP 18; TEMP 36.2; O2SAT 96
[2023-11-14] MEDS: sodium chloride 0.9% 1,000 ML 30 ML IV (10:22)
--- NOTE | 2023-11-14 10:39 | P.ANESASSM_ITS ---
Pre-Anesthetic Assessment Height/Weight: Height 1.5 m Weight 49.895 kg Temp Pulse Resp BP Pulse Ox O2 Del Method 97.2 F L 88 18 122/89 96 Room Air 11/14/23 10:06 11/14/23 10:06 11/14/23 10:06 11/14/23 10:06 11/14/23 10:06 11/14/23 10:06 Operation Date: 11/14/23 11:00 Proposed Procedures p EGD(Not Applicable) - Chuck Chamberlain DO s colonoscopy with random Biopsy,(Not Applicable) - Chuck Chamberlain DO Familial anesthetic complications: None Was Beta Omar taken within 24 hours: N/A Was Clonidine taken within 24 hours: N/A Last intake: Intake Last Liquid Date 11/13/23 Last Liquid Time 23:00 Last Solid Date 11/12/23 Last Solid Time 10:00 Social Tobacco Exam alert, oriented x 3, clear to auscultation bilaterally and regular rate & rhythm Airway Mallampati: Class I Dentition: chipped Pulmonary Hx PE CV/HEM Deep Vein Thrombosis Neuropsych Seizure Anesthetic Plan ASA status: 3 Anesthesia: MAC Risk of > 500 ml blood loss (7ml/kg in children): No Medications/Allergies Home Medications Medication Instructions Recorded Confirmed Last Taken Type cetirizine 10 mg tablet (Zyrtec) 10 mg PO DAILY #30 tabs 07/26/22 11/12/23 11/13/23 Rx triamterene 37.5 1 cap PO DAILY 12/21/22 11/12/23 11/13/23 History mg-hydrochlorothiazide 25 mg capsule gabapentin 300 mg capsule 600 mg (2 x 300 mg) PO QID 30 days 06/06/23 11/12/23 11/13/23 Rx #240 caps adalimumab 40 mg/0.8 mL 40 mg (0.8 mL) SUBCUT Q14D #2 ea 06/07/23 11/12/23 10/08/23 Rx subcutaneous pen kit (Humira Pen) alprazolam 0.25 mg tablet 0.25 mg PO TID PRN Anxiety 08/06/23 11/12/23 11/13/23 History apixaban 5 mg (74 tabs) tablets in See Rx Instructions PO .COMPLEX 08/06/23 11/12/23 11/11/23 Rx a dose pack (Eliquis DVT-PE Treat #74 ea 30D Start) topiramate 200 mg tablet 200 mg PO BID 08/06/23 11/12/23 11/13/23 History leflunomide 20 mg tablet 20 mg PO DAILY #30 tabs 08/15/23 11/12/23 11/13/23 Rx Hinged Knee Brace #1 ea 08/16/23 10/15/23 11/13/23 Rx ondansetron 8 mg disintegrating 8 mg PO Q8H PRN nausea and 10/08/23 11/12/23 11/13/23 Rx tablet vomiting #20 tabs fluoxetine 40 mg capsule (Prozac) 40 mg PO DAILY #30 caps 10/15/23 11/12/23 11/14/23 Rx fluticasone propionate 50 2 spray intranasal DAILY 11/12/23 11/12/23 11/13/23 History mcg/actuation nasal spray,suspension valacyclovir 1 gram tablet 1,000 mg PO DAILY 11/14/23 11/14/23 11/14/23 History (Valtrex) Allergies Allergy/AdvReac Type Severity Reaction Status Date / Time methylprednisolone Allergy Severe ALGY-Anaphy Verified 11/12/23 13:01 laxis Latex, Natural Rubber Allergy Intermediate rash, hives Verified 11/12/23 13:01 amoxicillin Allergy ALGY-Hives Verified 11/12/23 13:01 methotrexate AdvReac Intermediate migraines, Verified 11/12/23 13:01 N/V Current Medications Generic Name Dose Route Start Last Admin Trade Name Freq PRN Reason Stop Dose Admin Sodium Chloride 1,000 mls @ 30 mls/hr 11/14/23 10:00 11/14/23 10:22 Sodium Chloride 0.9% IV 11/15/23 09:59 30 mls/hr .Q24H BLAYNE Administration PFSH Anesthesia Medical History Family history of colon cancer Bilateral pulmonary embolism Vapes nicotine containing substance Seizures Hx of migraines Ovarian mass, right Family history of psoriasis in father High risk medication use Inflammatory back pain Inflammatory arthritis Psychiatric care 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 Mosher at [facility] History of tubal ligation 12/2015- per Dr. Mosher at [facility] H/O removal of cyst [address] Mosher Family History Mother Stroke Hyperlipidemia Family history of thyroid problem Hypertension Cancer of tongue Father Degenerative disc disease Diabetes Unknown Breast cancer maternal great aunt Grandmother Ovarian cancer maternal Uterine cancer maternal Other Cancer Chronic kidney disease (CKD) Rheumatoid arthritis Denies family history of Lupus Social History Smoking and tobacco/nicotine status: current every day tobacco/nicotine user Second hand smoke exposure: No Alcohol intake: never Substance/Drug Use: never Data Anesthesia Cardiac Studies: 2 Echocardiogram 08/04/23
--- NOTE | 2023-11-14 11:14 | PM.HP ---
Providers/Chief Complaint Primary Care Provider: Joaquin Mak MD Chief Complaint: K52.9 History of Present Illness Mary Nesbitt is a 33 year old female Review of Systems General: Reports: 10 or more systems reviewed and unremarkable except in HPI and below Medications/Allergies Home Medications Medication Instructions Recorded Confirmed Last Taken Type cetirizine 10 mg tablet (Zyrtec) 10 mg PO DAILY #30 tabs 07/26/22 11/12/23 11/13/23 Rx triamterene 37.5 1 cap PO DAILY 12/21/22 11/12/23 11/13/23 History mg-hydrochlorothiazide 25 mg capsule gabapentin 300 mg capsule 600 mg (2 x 300 mg) PO QID 30 days 06/06/23 11/12/23 11/13/23 Rx #240 caps adalimumab 40 mg/0.8 mL 40 mg (0.8 mL) SUBCUT Q14D #2 ea 06/07/23 11/12/23 10/08/23 Rx subcutaneous pen kit (Humira Pen) alprazolam 0.25 mg tablet 0.25 mg PO TID PRN Anxiety 08/06/23 11/12/23 11/13/23 History apixaban 5 mg (74 tabs) tablets in See Rx Instructions PO .COMPLEX 08/06/23 11/12/23 11/11/23 Rx a dose pack (Eliquis DVT-PE Treat #74 ea 30D Start) topiramate 200 mg tablet 200 mg PO BID 08/06/23 11/12/23 11/13/23 History leflunomide 20 mg tablet 20 mg PO DAILY #30 tabs 08/15/23 11/12/23 11/13/23 Rx Hinged Knee Brace #1 ea 08/16/23 10/15/23 11/13/23 Rx ondansetron 8 mg disintegrating 8 mg PO Q8H PRN nausea and 10/08/23 11/12/23 11/13/23 Rx tablet vomiting #20 tabs fluoxetine 40 mg capsule (Prozac) 40 mg PO DAILY #30 caps 10/15/23 11/12/23 11/14/23 Rx fluticasone propionate 50 2 spray intranasal DAILY 11/12/23 11/12/23 11/13/23 History mcg/actuation nasal spray,suspension valacyclovir 1 gram tablet 1,000 mg PO DAILY 11/14/23 11/14/23 11/14/23 History (Valtrex) Allergies Allergy/AdvReac Type Severity Reaction Status Date / Time methylprednisolone Allergy Severe ALGY-Anaphy Verified 11/12/23 13:01 laxis Latex, Natural Rubber Allergy Intermediate rash, hives Verified 11/12/23 13:01 amoxicillin Allergy ALGY-Hives Verified 11/12/23 13:01 methotrexate AdvReac Intermediate migraines, Verified 11/12/23 13:01 N/V PFSH Acute PFSH: Medical History Family history of colon cancer Bilateral pulmonary embolism Vapes nicotine containing substance Seizures Hx of migraines Ovarian mass, right Family history of psoriasis in father High risk medication use Inflammatory back pain Inflammatory arthritis Psychiatric care Other prison (current) drug therapy Anxiety Bipolar disorder, unspecified Acute abscess of female pelvis Abnormal uterine bleeding (AUB) Abnormal Papanicolaou smear of cervix with positive human papilloma virus (HPV) test Endometriosis determined by laparoscopy Surgical History History of hysterectomy with unilateral oophorectomy (2019) Hysterectomy with left oophorectomy History of right oophorectomy (06/20/22) History of cholecystectomy (2020) History of laparoscopy 2010-for endometriosis 2015- for Mirena removal 01/17/2017-performed by Dr. Mosher at [facility] History of tubal ligation 12/2015- per Dr. Mosher at [facility] H/O removal of cyst [address] Mosher Family History Mother Stroke Hyperlipidemia Family history of thyroid problem Hypertension Cancer of tongue Father Degenerative disc disease Diabetes Unknown Breast cancer maternal great aunt Grandmother Ovarian cancer maternal Uterine cancer maternal Other Cancer Chronic kidney disease (CKD) Rheumatoid arthritis Denies family history of Lupus Social History Smoking and tobacco/nicotine status: current every day tobacco/nicotine user Second hand smoke exposure: No Alcohol intake: never Substance/Drug Use: never Vitals/I&O/Wt Last Vital Signs Temp 97.2 F L 11/14/23 10:06 Pulse 88 11/14/23 10:06 Resp 18 11/14/23 10:06 BP 122/89 11/14/23 10:06 Pulse Ox 96 11/14/23 10:06 O2 Del Method Room Air 11/14/23 10:06 Weight last 48 hrs Weight 110 lb A&P Assessment and plan (1) GI bleed: (2) Abdominal pain: (3) Chronic diarrhea: (4) Family history of colon cancer: Plan EGD and colonoscopy with random biopsies Attestations Medical Necessity Statement*: Home Coding Level of Care Code Acute Code for Chg Fwd Diagnoses GI bleed K92.2 Abdominal pain R10.9 Chronic diarrhea K52.9 Family history of colon cancer Z80.0
[2023-11-14 11:33] VITALS: BP 103/71; PULSE 73; RESP 16; TEMP 36.1; O2SAT 95
[2023-11-14 11:43] VITALS: BP 113/80; PULSE 88; RESP 17; O2SAT 96
[2023-11-14 11:53] VITALS: BP 129/91; PULSE 81; RESP 18; O2SAT 99
--- NOTE | 2023-11-14 12:20 | ANE.PACU2 ---
Inpatient post-anesthesia follow up: Airway intact: Yes Vital signs: Temperature 97 F Pulse Rate 81 Respiratory Rate 18 Blood Pressure 129/91 Pulse Oximetry 99 Oxygen Delivery Me thod Room Air Oxygen Flow Rate 4 Fraction of Inspir ed Oxygen Hydration adequate: Yes Nausea and vomiting: No Pain level: 1 Mental status: Baseline
[2023-11-14 15:05] LABS: C.Diff PCR (Lab) POSITIVE (Negative)
--- NOTE | 2023-11-14 15:52 | PC.NURSE ---
Took critical redult from Dorothy in lab of positive Cdiff. Informed Dr. Chamberlain by telephone, and was instructed to call his office and have them contact pt and order vancomycin, informed Kerri of Dr. Chamberlain's direction. Kerri voiced understanding.
[2023-11-14 16:30] LABS: Clostridioides Difficile Toxin NEGATIVE (Negative)
== END 2023-11-14 12:22 | disposition home or self-care (01) ==
PROVIDERS: PCP Family Medicine; Visit Provider Surgery
PROC: 0DJ08ZZ Inspection of Upper Intestinal Tract, Via Natural or Artificial Opening Endoscopic (ICD-10-PCS; CPT 43235; principal; 2023-11-14 11:00)
PROC: 0DJD8ZZ Inspection of Lower Intestinal Tract, Via Natural or Artificial Opening Endoscopic (ICD-10-PCS; CPT 45378; 2023-11-14 11:00)
DX: K92.2 Gastrointestinal hemorrhage, unspecified (principal); K52.9 Noninfective gastroenteritis and colitis, unspecified; K63.89 Other specified diseases of intestine; R10.9 Unspecified abdominal pain; Z80.0 Family history of malignant neoplasm of digestive organs; Z79.899 Other long term (current) drug therapy; F17.200 Nicotine dependence, unspecified, uncomplicated; Z86.718 Personal history of other venous thrombosis and embolism
CPT/HCPCS: 43239; 45380; 82274; 83630; 87045; 87177; 87209; 87324; 87427; 87449; 87493; 88305; J2704; J7030

== ENCOUNTER → 2023-12-03 15:30 | Outpatient (BNVA) | payer MEDICAID, SELFPAY | PROVIDERS: PCP Family Medicine; Visit Provider Surgery | DX: K52.9 Noninfective gastroenteritis and colitis, unspecified (principal); Z09 Encounter for follow-up examination after completed treatment for conditions other than malignant neoplasm; A04.72 Enterocolitis due to Clostridium difficile, not specified as recurrent | CPT/HCPCS: 99214 ==

== ENCOUNTER 2024-01-21 17:16 | Inpatient (IN) | payer OTHER, SELFPAY ==
[2024-01-21] VITALS (9 sets, daily range): BP systolic 116–130; BP diastolic 64–78; PULSE 112–132; RESP 15–20; TEMP 39.3–39.5; O2SAT 93–98; BMI 22.0
--- NOTE | 2024-01-21 17:19 | XRR_ITS ---
PROCEDURE INFORMATION: Exam: XR Chest Exam date and time: 01/21/2024 5:38 PM Age: 33 years old Clinical indication: Fever and other: N/v TECHNIQUE: Imaging protocol: Radiologic exam of the chest. Views: 1 view. COMPARISON: CT angio chest PE protcl [id number] 09/06/2023 12:40 PM FINDINGS: Lungs: Unremarkable. No consolidation. Pleural spaces: Unremarkable. No pleural effusion. No pneumothorax. Heart/Mediastinum: Unremarkable. No cardiomegaly. Bones/joints: Unremarkable. XR/XR chest 1V portable [id number] IMPRESSION: No acute findings.
[2024-01-21 18:00] LABS: Basophils % 0.2 %; Lymphocytes # 1.4 10^3/uL (0.8-4.8); Lymphocytes % 7.6 %; Mean Corpuscular HGB Conc 31.5 g/dL (30-55); Mean Corpuscular Hemoglobin 29.1 pg (27-33); Mean Corpuscular Volume 92.4 fl (85-98); Mean Platelet Volume 10.2 fL (7.4-10.4); Monocytes # 1.4 10^3/uL (0.2-0.9); Monocytes % 7.8 %; Neutrophils # 14.85 10^3/uL (1.8-7.7); Neutrophils % 83.7 %; Nucleated Red Blood Cells % 0 %; Platelet Count 380 10^3/cmm (157-399); Red Blood Count 3.57 10^6/uL (3.85-5.65); Red Cell Distribution Width 15.8 % (12.1-15.1); White Blood Count 17.73 10^3/uL (3.29-11.43)
[2024-01-21 18:00] LABS: Covid PCR NO RESULT (Negative); Influenza A NO RESULT (Negative); Influenza B NO RESULT (Negative); Respiratory Syncytial Virus Ce NO RESULT (Negative)
[2024-01-21 18:04] LABS: HCG, Serum Qual Negative (Negative)
[2024-01-21] MEDS: ondansetron 2 mg/ML SDV 2 mL 4 MG IVP ×2 (18:13→23:42)
[2024-01-21] MEDS: HYDROmorphone 1 mg/mL INJ 1 mL IVP (18:13)
--- NOTE | 2024-01-21 18:16 | CTR_ITS ---
PROCEDURE INFORMATION: Exam: CT Abdomen And Pelvis With Contrast Exam date and time: 01/21/2024 7:17 PM Age: 33 years old Clinical indication: Other: Rlq pain; Prior surgery; Surgery date: 6+ months; Surgery type: Gb, hysterectomy; Additional info: Severe rlq pain TECHNIQUE: Imaging protocol: Computed tomography of the abdomen and pelvis with contrast. Radiation optimization: All CT scans at this facility use at least one of these dose optimization techniques: automated exposure control; mA and/or kV adjustment per patient size (includes targeted exams where dose is matched to clinical indication); or iterative reconstruction. Contrast material: OMNI 350; Contrast volume: 100 ml; Contrast route: INTRAVENOUS (IV); COMPARISON: CT abdomen pelvis w con* [id number] 09/28/2023 8:34 PM RADIATION DOSE METRICS: Total DLP (mGy-cm): 315.36 FINDINGS: Liver: Normal. No mass. Gallbladder and biliary ducts: Gallbladder is surgically absent. Pancreas: Normal. No ductal dilation. Spleen: Normal. No splenomegaly. Adrenal glands: Normal. No mass. Kidneys and ureters: There is striated nephrograms in the ummwm-awhqynu-fvso-left kidneys. Stomach and bowel: Unremarkable. No obstruction. No mucosal thickening. Appendix: No evidence of appendicitis. Intraperitoneal space: There is some free fluid in the right. Vasculature: Unremarkable. No abdominal aortic aneurysm. Lymph nodes: Unremarkable. No enlarged lymph nodes. Urinary bladder: Diffuse urinary bladder wall thickening mucosal hyperenhancement. Reproductive: Left ovarian cystic changes. Bones/joints: Unremarkable. No acute fracture. Soft tissues: Unremarkable. Other findings: Right uroepithelial enhancement. CT/CT abdomen pelvis w con* [id number] IMPRESSION: Findings above related to right-sided pyelonephritis which is likely secondary to arising infection from an inflamed urinary bladder. Correlate with urinalysis. Free fluid along the right hemiabdomen.
--- NOTE | 2024-01-21 18:20 | W.ED.FEVER ---
HPI - Fever General: Chief Complaint: Fever Stated Complaint: fever 105.3 , vomitting, body ache , headache Time Seen by Provider: 01/21/24 17:37 Source: patient Mode of arrival: ambulatory Limitations: no limitations History of Present Illness: Patient is a 33-year-old female who presents to the emergency department with right lower quadrant pain over the past 3 days. States that she has had intermittent fevers for the past 2 weeks, but today it was high as 105 and has not been controlled with either Tylenol or ibuprofen. She states she took Tylenol about an hour and a half prior to arrival, and ibuprofen another hour after that but still arrives with temperature of 103.1. Complaining of severe right lower quadrant pain that radiates down the anterior right leg, she still has her appendix but no longer has her gallbladder. She states she always has diarrhea due to history of C. difficile, no constipation. Reporting that the pain is a 10/10 at this time. She is also reporting associated nausea and vomiting. Appearing extremely uncomfortable at this time with legs drawn to stomach, does not provide much history secondary to the amount of pain. She does note that she recently had antibiotics after being diagnosed with diverticulitis. MD elicited complaint: fever and other (Right lower quadrant abdominal pain) Onset (ago): day(s) Measured temperature: 105 F Exacerbating factors: other (Movement/walking) Relieving factors: nothing Associated symptoms: Reports abdominal pain, chills, diarrhea, nausea and vomiting; Deny flank pain, chest pain, dysuria or headache(s) Treatments prior to arrival fever: antibiotics Related Data Home Medications Medication Instructions Recorded Confirmed triamterene 37.5 1 cap PO DAILY 12/21/22 12/25/23 mg-hydrochlorothiazide 25 mg capsule alprazolam 0.25 mg tablet 0.25 mg PO TID PRN Anxiety 08/06/23 12/25/23 topiramate 200 mg tablet 200 mg PO BID 08/06/23 12/25/23 fluticasone propionate 50 2 spray intranasal DAILY 11/12/23 12/25/23 mcg/actuation nasal spray,suspension valacyclovir 1 gram tablet 1,000 mg PO DAILY 11/14/23 12/25/23 (Valtrex) Previous Rx's Medication Instructions Recorded cetirizine 10 mg tablet (Zyrtec) 10 mg PO DAILY #30 tabs 07/26/22 apixaban 5 mg (74 tabs) tablets in See Rx Instructions PO .COMPLEX 08/06/23 a dose pack (Eliquis DVT-PE Treat #74 ea 30D Start) leflunomide 20 mg tablet 20 mg PO DAILY #30 tabs 08/15/23 Hinged Knee Brace #1 ea 08/16/23 ondansetron 8 mg disintegrating 8 mg PO Q8H PRN nausea and 10/08/23 tablet vomiting #20 tabs pantoprazole 40 mg tablet,delayed 40 mg PO BID 90 days #180 tabs 11/14/23 release vancomycin 125 mg capsule 125 mg PO Q6H 10 days #40 caps 12/03/23 fluoxetine 40 mg capsule (Prozac) 40 mg PO DAILY #30 caps 12/17/23 gabapentin 300 mg capsule 600 mg (2 x 300 mg) PO QID 30 days 12/17/23 #240 caps trazodone 150 mg tablet 150 mg PO BEDTIME #30 tabs 12/17/23 Allergies Allergy/AdvReac Type Severity Reaction Status Date / Time methylprednisolone Allergy Severe ALGY-Anaphy Verified 12/25/23 10:38 laxis Latex, Natural Rubber Allergy Intermediate rash, hives Verified 12/25/23 10:38 amoxicillin Allergy ALGY-Hives Verified 12/25/23 10:38 methotrexate AdvReac Intermediate migraines, Verified 12/25/23 10:38 N/V Review of Systems General: Reports: 10 or more systems reviewed and unremarkable except in HPI and below Const: Reports: fever(s) and chills; Denies: change in appetite, change in weight or diaphoresis ENMT: Denies: throat pain or hoarseness Card: Denies: chest pain, palpitations or lightheadedness Resp: Denies: dyspnea, productive cough or wheezing GI: Reports: abdominal pain, nausea, vomiting and diarrhea; Denies: constipation, bloating, change in stool character or hematochezia : Denies: flank pain, difficulty voiding, dysuria, urinary frequency or urinary urgency Musc: Denies: neck pain or back pain Skin/Breast: Denies: rash or new lesions Neuro: Denies: headache(s) or dizziness PFSH ED PFSH: Medical History Family history of colon cancer Bilateral pulmonary embolism Vapes nicotine containing substance Seizures Hx of migraines Ovarian mass, right Family history of psoriasis in father High risk medication use Inflammatory back pain Inflammatory arthritis Psychiatric care 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 Mosher at [facility] History of tubal ligation 12/2015- per Dr. Mosher at [facility] H/O removal of cyst [address] Mosher Family History Mother Stroke Hyperlipidemia Family history of thyroid problem Hypertension Cancer of tongue Father Degenerative disc disease Diabetes Unknown Breast cancer maternal great aunt Grandmother Ovarian cancer maternal Uterine cancer maternal Other Cancer Chronic kidney disease (CKD) Rheumatoid arthritis Denies family history of Lupus Social History Smoking and tobacco/nicotine status: never used tobacco/nicotine Second hand smoke exposure: No Alcohol intake: never Substance/Drug Use: never Physical Exam Const: COMMON NORMALS: patient oriented x3, no limitations, alert and well nourished GENERAL APPEARANCE: cooperative and in distress (Legs drawn to stomach, complaining of severe pain) ORIENTATION/CONSCIOUSNESS: Yes awake HENMT: COMMON NORMALS: normocephalic, atraumatic, hearing grossly normal bilaterally, external ears normal, Normal external nose present, Normal nasal mucous membranes and turbinates present and moist oral mucous membranes HEAD & SCALP: normocephalic and atraumatic NOSE: Normal external nose present and Normal nasal mucous membranes and turbinates present EXTERNAL EAR: Yes external ears normal Eye: COMMON NORMALS: Equal, round and reactive pupils present, EOMs intact bilaterally, conjunctivae normal and normal visual white by confrontation CONJUNCTIVA: Yes conjunctivae normal PUPIL: Yes Equal, round and reactive pupils present Neck/C-Spine: COMMON NORMALS: full ROM, supple, no meningeal signs and no JVD Resp: COMMON NORMALS: normal respiratory effort, No retractions, No use of accessory muscles and clear to auscultation bilaterally AUSCULTATION: clear to auscultation bilaterally, no crackles, no rales, no rhonchi and no wheezes Cardio: COMMON NORMALS: no JVD, regular rate, regular rhythm, S1 normal heart sound present, S2 normal heart sound present, No gallops present (Cardio), No clicks present (Cardio), No murmurs present (Cardio), No rub (Cardio) and Peripheral pulses 2+ throughout RATE: regular rate RHYTHM: regular rhythm HEART SOUNDS: S1 normal heart sound present and S2 normal heart sound present PERIPHERAL PULSES: Peripheral pulses 2+ throughout GI: COMMON NORMALS: Normal to inspection, nondistended, normoactive bowel sounds present, Soft to palpation, No hepatosplenomegaly present and no masses AUSCULTATION: Yes normoactive bowel sounds PALPATION: Yes Soft to palpation, Yes Tenderness to palpation present (GI) Details: RLQ, No Guarding due to palpation present (GI), No Rigid due to palpation and Yes No hepatosplenomegaly present RECTAL EXAM: deferred OTHER: Positive McBurney's point tenderness. Negative Rovsing sign. Positive psoas sign. : COMMON NORMALS: Yes no CVA tenderness BLADDER/KIDNEY EXAM: Yes no CVA tenderness Back/Pelvis: COMMON NORMALS: no CVA tenderness Extremity: COMMON NORMALS: normal to inspection and full ROM Neuro: COMMON NORMALS: patient oriented x3, moves all extremities, no focal motor deficits and no sensory deficits noted SENSORIUM/ORIENTATION: Yes alert MENINGEAL SIGNS: Yes no meningeal signs Psych: COMMON NORMALS: mental status grossly normal, cooperative and speech normal SPEECH: Yes normal speech Skin: COMMON NORMALS: no rashes or lesions noted GENERAL SKIN EXAM: no rashes or lesions noted Course Vital Signs: Vital signs: Vital Signs Temperature 103.1 F H 01/21/24 17:28 Pulse Rate 112 H 01/21/24 18:56 Respiratory Rate 18 01/21/24 18:56 Blood Pressure 130/78 01/21/24 17:28 Pulse Oximetry 98 01/21/24 17:28 Oxygen Delivery Me thod Room Air 01/21/24 17:28 MDM - Fever Medical Decision Making Patient has had a couple weeks of fevers, sudden onset right lower quadrant pain tonight. Still has her appendix, history of cholecystectomy. Arrives with a temperature of 103. Pulse elevated 130. Reproducible right lower quadrant tenderness to palpation, positive over McBurney's point, though negative Rovsing. Urinalysis was grossly infected, white count 17.7, CRP significantly elevated, and evidence of septicemia with elevated lactic. Has been treated with Cipro and Flagyl recently, but is still been getting worse. Spoke to Dr. Hernández, who agrees to accept the patient into the hospital for IV antibiotics. Informed patient of this plan, is requesting more for pain at this time. Dr. Torres putting in admit orders. Lab Data 01/21/24 17:38 01/21/24 17:38 Radiology Impressions Chest X-Ray 01/21/24 17:19 IMPRESSION: No acute findings. Abdomen/Pelvis CT 01/21/24 18:16 IMPRESSION: Findings above related to right-sided pyelonephritis which is likely secondary to arising infection from an inflamed urinary bladder. Correlate with urinalysis. Free fluid along the right hemiabdomen. Laboratory Results WBC 17.73 10^3/uL (3.29-11.43) H 01/21/24 17:38 RBC 3.57 10^6/uL (3.85-5.65) L 01/21/24 17:38 Hgb 10.40 g/dL (11.27-16.99) L 01/21/24 17:38 Hct 33.0 % (36-47) L 01/21/24 17:38 MCV 92.4 fl (85-98) 01/21/24 17:38 MCH 29.1 pg (27-33) 01/21/24 17:38 MCHC 31.5 g/dL (30-55) 01/21/24 17:38 RDW 15.8 % (12.1-15.1) H 01/21/24 17:38 Plt Count 380 10^3/cmm (157-399) 01/21/24 17:38 MPV 10.2 fL (7.4-10.4) 01/21/24 17:38 Neut % (Auto) 83.7 % 01/21/24 17:38 Lymph % (Auto) 7.6 % 01/21/24 17:38 Osborne % (Auto) 7.8 % 01/21/24 17:38 Eos % (Auto) 0.0 % 01/21/24 17:38 Baso % (Auto) 0.2 % 01/21/24 17:38 Neut # (Auto) 14.85 10^3/uL (1.8-7.7) H 01/21/24 17:38 Lymph # (Auto) 1.4 10^3/uL (0.8-4.8) 01/21/24 17:38 Osborne # (Auto) 1.4 10^3/uL (0.2-0.9) H 01/21/24 17:38 Eos # (Auto) 0.0 10^3/uL (0.0-0.8) 01/21/24 17:38 Baso # (Auto) 0.0 10^3/uL (0.0-0.1) 01/21/24 17:38 Nucleated RBC % (auto) 0 % 01/21/24 17:38 Nucleated RBCs # 0.0 /100WBC 01/21/24 17:38 Sodium 132 mmol/L (136-145) L 01/21/24 17:38 Potassium 3.0 mmol/L (3.5-5.1) L 01/21/24 17:38 Chloride 95 mmol/L (98-107) L 01/21/24 17:38 Carbon Dioxide 20 mmol/L (22-29) L 01/21/24 17:38 Anion Gap 20.0 (5-19) H 01/21/24 17:38 BUN 9 mg/dL (6-20) 01/21/24 17:38 Creatinine 0.7 mg/dL (0.5-0.9) 01/21/24 17:38 GFR Calculation 95.8 mL/min (90-130) 01/21/24 17:38 Glucose 104 mg/dL (65-115) 01/21/24 17:38 Calculated Osmolality 273 mOsm/kg (285-295) L 01/21/24 17:38 Lactic Acid 2.7 mmol/L (0.5-2.2) H 01/21/24 17:38 Calcium 9.5 mg/dL (8.5-10.5) 01/21/24 17:38 Total Bilirubin 0.3 mg/dL (0.15-1.2) 01/21/24 17:38 AST 73 U/L (0-32) H 01/21/24 17:38 ALT 86 U/L (0-33) H 01/21/24 17:38 Alkaline Phosphatase 294 U/L (35-105) H 01/21/24 17:38 C-Reactive Protein 115.9 mg/L (0.0-4.9) H 01/21/24 17:38 Total Protein 7.8 g/dL (6.6-8.7) 01/21/24 17:38 Albumin 3.8 g/dL (3.5-5.2) 01/21/24 17:38 Globulin 4.0 g/dL (1.3-4.6) 01/21/24 17:38 Lipase 53 U/L (13-60) 01/21/24 17:38 HCG, Qual Negative (Negative) 01/21/24 17:38 Urine Color Yellow (Yellow) 01/21/24 19:15 Urine Appearance Cloudy (CLEAR) A 01/21/24 19:15 Urine pH 6.0 (5-7) 01/21/24 19:15 Ur Specific [place] 1.015 (1.005-1.030) 01/21/24 19:15 Urine Protein 2+ (Negative) A 01/21/24 19:15 Urine Glucose (UA) Negative (Normal) 01/21/24 19:15 Urine Ketones 2+ (Negative) H 01/21/24 19:15 Urine Blood 2+ (Negative) A 01/21/24 19:15 Urine Nitrate Positive (Negative) A 01/21/24 19:15 Urine Bilirubin Negative (Negative) 01/21/24 19:15 Urine Urobilinogen 1.0 mg/dL (Negative) 01/21/24 19:15 Ur Leukocyte Esterase 3+ (Negative) A 01/21/24 19:15 Urine RBC 0-2 /hpf (0-2) 01/21/24 19:15 Urine WBC >100 /hpf (0-5) H 01/21/24 19:15 Ur Squamous Epith Cells 0-5 /hpf (0-5) 01/21/24 19:15 Amorphous Sediment Not Reportable 01/21/24 19:15 Urine Bacteria 4+ /hpf (NONE) H 01/21/24 19:15 Hyaline Casts 2.87 /lpf 01/21/24 19:15 Coronavirus (PCR) No result (Negative) 01/21/24 17:40 Influenza A (PCR) No result (Negative) 01/21/24 17:40 Influenza Type B (PCR) No result (Negative) 01/21/24 17:40 RSV (PCR) No result (Negative) 01/21/24 17:40 All radiology interpretation(s) finalized by discharge Discharge Plan Discharge Patient Disposition: Admitted As Inpatient Clinical Impression: Pyelonephritis, Septicemia Condition: Stable Coding Level of Care Code ED Manager Convention for Mark Berg
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
[2024-01-21 18:30] LABS: Alanine Aminotransferase 86 U/L (0-33); Albumin Level 3.8 g/dL (3.5-5.2); Alkaline Phosphatase 294 U/L (35-105); Aspartate Amino Transferase 73 U/L (0-32); Blood Urea Nitrogen 9 mg/dL (6-20); C Reactive Protein 115.9 mg/L (0.0-4.9); Calcium 9.5 mg/dL (8.5-10.5); Carbon Dioxide 20 mmol/L (22-29); Chloride 95 mmol/L (98-107); Creatinine Clr Calc Pharmacy 88.3874; Glomerular Filtration Rate 95.8 mL/min (90-130); Glucose 104 mg/dL (65-115); Lipase 53 U/L (13-60); Osmolality Calculated 273 mOsm/kg (285-295); Sodium 132 mmol/L (136-145); Total Bilirubin 0.3 mg/dL (0.15-1.2); Total Protein 7.8 g/dL (6.6-8.7)
[2024-01-21 18:32] LABS: Lactic Sepsis W/Reflex 2.7 mmol/L (0.5-2.2)
[2024-01-21] MEDS: iohexol 350 mg/mL 500 mL Btl (per mL) IV (19:20)
[2024-01-21 19:26] LABS: Bilirubin Urine Negative (Negative); Blood Urine 2+ (Negative); Glucose Urine UA Negative (Normal); Ketones Urine 2+ (Negative); Leukocyte Esterase Urine 3+ (Negative); Nitrate Urine Positive (Negative); Protein Urine 2+ (Negative); Specific Gravity, Urine 1.015 (1.005-1.030); Urine Appearance Cloudy (CLEAR); Urine Color Yellow (Yellow)
[2024-01-21 19:28] LABS: Add Urine Microscopic? YES; Bacteria Urine 4+ /hpf; Hyaline Casts Urine 2.87 /lpf; RBC Urine 0-2 /hpf (0-2); Squamous Epithelial Cell Urine 0-5 /hpf (0-5); WBC Urine >100 /hpf (0-5)
[2024-01-21 19:35] LABS: Add Urine Culture? Yes
[2024-01-21 19:44] LABS: Reflex Lactate Order REFLEX LACTIC ORDERD
[2024-01-21] MEDS: metroNIDAZOLE IV 500 MG/100 ML PREMIX 100 MG IV (19:44)
[2024-01-21] MEDS: sodium chloride 0.9% 1,000 ML 999 ML IV (19:45)
[2024-01-21] MEDS: ciprofloxacin 400 MG/200 ML PREMIX 200 MG IV (19:45)
[2024-01-21] MEDS: HYDROmorphone 1 mg/mL INJ 1 mL 0.5 MG IVP (19:47)
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
[2024-01-21 21:24] LABS: HIV 1 & 2 Antibody Non-Reactive (Non-Reactiv); HIV 1 & 2 Antigen Non-Reactive (Non-Reactiv)
[2024-01-21 21:29] LABS: Lactic Acid level (Lactate) 0.8 mmol/L (0.5-2.2)
[2024-01-21 22:26] LABS: Chlamydia Trachomatis NOT DETECTED; Neisseria Gonorrhea NOT DETECTED
[2024-01-21 22:42] LABS: Estmated Average Glucose 97
[2024-01-21] MEDS: apixaban 5 mg Tablet PO (23:31)
[2024-01-21] MEDS: morphine 4 mg/mL SDV 1 mL 2 MG IVP (23:31)
[2024-01-21] MEDS: acetaminophen 500 mg Tablet PO (23:31)
[2024-01-21] MEDS: cefTRIAXone 1,000 mg SDV 1000 MG IVP (23:32)
[2024-01-21] MEDS: sodium chloride 0.9% 1,000 ML 75 ML IV (23:38)
[2024-01-22] VITALS (12 sets, daily range): BP systolic 101–130; BP diastolic 63–80; PULSE 94–132; RESP 15–20; TEMP 36.5–39.2; O2SAT 93–100
[2024-01-22] MEDS: morphine IR 15 mg Tablet PO (01:35)
[2024-01-22] MEDS: phenazopyridine 100 mg Tablet PO (03:27)
[2024-01-22] MEDS: morphine 4 mg/mL SDV 1 mL 2 MG IVP ×2 (03:27→21:16)
[2024-01-22 06:29] LABS: Basophils % 0.2 %; Eosinophils % 0.1 %; Hematocrit 29.3 % (36-47); Lymphocytes # 1.3 10^3/uL (0.8-4.8); Lymphocytes % 10.5 %; Mean Corpuscular HGB Conc 30.7 g/dL (30-55); Mean Corpuscular Volume 94.5 fl (85-98); Monocytes # 2.3 10^3/uL (0.2-0.9); Monocytes % 17.9 %; Neutrophils # 8.91 10^3/uL (1.8-7.7); Neutrophils % 70.7 %; Nucleated Red Blood Cells % 0 %; Platelet Count 295 10^3/cmm (157-399); Red Cell Distribution Width 16.2 % (12.1-15.1)
[2024-01-22 06:56] LABS: Anion Gap 11.4 (5-19); Blood Urea Nitrogen 6 mg/dL (6-20); C Reactive Protein 109.9 mg/L (0.0-4.9); Calcium 8.6 mg/dL (8.5-10.5); Carbon Dioxide 26 mmol/L (22-29); Chloride 103 mmol/L (98-107); Creatinine Clr Calc Pharmacy 88.3052; Glomerular Filtration Rate 95.8 mL/min (90-130); Glucose 143 mg/dL (65-115); Magnesium 1.7 mg/dL (1.7-2.3); Osmolality Calculated 284 mOsm/kg (285-295); Potassium 3.4 mmol/L (3.5-5.1); Sodium 137 mmol/L (136-145)
[2024-01-22] MEDS: ALPRAZolam 0.5 mg Tablet PO ×2 (09:41→21:17)
[2024-01-22] MEDS: apixaban 5 mg Tablet PO ×2 (09:41→21:16)
[2024-01-22] MEDS: fluoxetine 20 mg Capsule 40 MG PO (09:41)
[2024-01-22] MEDS: pantoprazole DR 40 mg Tablet PO ×2 (09:41→16:42)
--- NOTE | 2024-01-22 10:18 | PC.CHAP ---
Pastoral Care Encounter/Spiritual Assessment Type of Contact [] Declined religious educator visit [] Patient/Family/Request visit [] Outpatient visit [] Follow-up visit [] Physician referral [] Code/Alert [] Routine visit [] Staff referral [] Actively dying [] Patient sleeping [] Family support [] [] Out of room [] Palliative care [] [] Receiving care in room [] Pre-surgical visit [] Trauma [] Long length of stay [] ICU visit [x] Other:Contact precautions. No visit. Relational/Emotional Strength [] Patient feels connected with others/family/visitors/staff [] Distress [] Loneliness/isolation [] Abandonment Spirituality of Patient [] Person of Antonina [] Attends Adventism of their Antonina [] Believes in Prayer [] Reads Bible or Mandaen materials [] There are Spiritual issues to be addressed Bait Tier Interventions [] Prayer [] Active listening [] Non-anxious presence [] Spiritual/emotional support [] Crisis/trauma care [] Spiritual counseling [] Bereavement support [] Provided bereavement packet [] Provided Bible/devotional materials [] Provided toy/stuffed animal, coloring book to patient or family member [] Provided Communion [] Anointing/[place] [] Salvation [] Completed spiritual assessment [] Other: Impact on Illness or Injury [] Angry [] Fearful [] Anxious [] Often cries [] Exhaustion [] Unable to work [] Unable to attend orthodoxy [] Unable to walk/stand [] Unable to read [] Unable to drive [] Unable to eat/drink [] Unable to sleep [] Unable to be with family [] Patient intubated [] Other: Summary Time spent with patient
[2024-01-22] MEDS: sodium chloride 0.9% 1,000 ML 75 ML IV (10:32)
[2024-01-22] MEDS: HYDROmorphone 1 mg/mL INJ 1 mL 0.5 MG IVP (11:39)
[2024-01-22] MEDS: meropenem 500 mg SDV IVP ×2 (11:39→21:17)
[2024-01-22] MEDS: acetaminophen 500 mg Tablet PO (11:40)
--- NOTE | 2024-01-22 14:41 | P.PN_ITS ---
Subjective 2 Subjective: Patient was seen this morning, she complains of right flank pain, feeling nauseous, patient reports subjective fevers, chills Vitals/I&O/Wt Last Vital Signs Temp 100.3 F H 01/22/24 12:50 Pulse 117 H 01/22/24 12:00 Resp 20 H 01/22/24 12:00 BP 130/78 01/22/24 12:00 Pulse Ox 99 01/22/24 12:00 O2 Del Method Room Air 01/22/24 12:00 01/21/24 01/22/24 01/22/24 22:59 06:59 14:59 Intake Total 540 / 540 1000 / 1540 1177.5 / 1177.5 Balance 540 / 540 1000 / 1540 1177.5 / 1177.5 Weight last 48 hrs Weight 49.396 kg Weight 49.804 kg Weight 49.442 kg Physical Exam 2 Const: COMMON NORMALS: no acute distress and patient oriented x3 Resp: COMMON NORMALS: normal respiratory effort, No retractions, No use of accessory muscles and clear to auscultation bilaterally AUSCULTATION: clear to auscultation bilaterally Cardio: COMMON NORMALS: regular rate, regular rhythm, S1 normal heart sound present and S2 normal heart sound present RATE: regular rate RHYTHM: r egular rhythm HEART SOUNDS: S1 normal heart sound present and S2 normal heart sound present GI: COMMON NORMALS: Normal to inspection, nondistended, normoactive bowel sounds present and non-tender OTHER: On examination, patient has right CVA tenderness Extremity: COMMON NORMALS: no pedal edema Neuro: COMMON NORMALS: patient oriented x3 Psych: COMMON NORMALS: mental status grossly normal Data 01/22/24 06:11 01/22/24 06:11 Micro: Microbiology 01/21/24 18:06 Blood Culture - Preliminary Blood SPECIMEN COLLECTED 01/21/24 17:38 Blood Culture - Preliminary Blood SPECIMEN COLLECTED A&P Assessment and plan (1) C. difficile colitis: (2) Pyelonephritis: (3) Septicemia: (4) Vapes nicotine containing substance: (5) Bilateral pulmonary embolism: (6) Bipolar disorder, unspecified: Qualifiers: Active/Remission status: currently active Current bipolar episode type: hypomanic Qualified Code(s): F31.0 - Bipolar disorder, current episode hypomanic Plan Sepsis related to right-sided pyelonephritis No sign of hydronephrosis or obstructive stone Criteria met with tachypnea tachycardia fever leukocytosis, lactic acid pending Will expand antibiotic coverage to meropenem 5 mL IV push every 8 hours [address] screen negative CT abdomen pelvis did not show any sign of appendicitis I will keep patient on GI soft diet Antiemetics Opioids for severe pain continue IV fluids Transaminitis, ? Chronic, continue to monitor Patient has chronic diarrhea Has been referred for fecal transplant, not on oral vancomycin Leflunomide for rheumatoid arthritis, currently on hold given sepsis as above Patient has been compliant with this medication History of PE continue Eliquis History of bipolar disorder continue Xanax and as needed basis Full code GI soft diet # Eliquis for DVT prophylaxis Attestations 2 Medical Necessity Statement*: Patient requires hospitalization due to right sided pyelonephritis with sepsis Diagnoses C. difficile colitis A04.72 Pyelonephritis N12 Septicemia A41.9 Vapes nicotine containing substance Z72.0 Bilateral pulmonary embolism I26.99 Bipolar affective disorder, current episode hypomanic F31.0 Active/Remission status: currently active Current bipolar episode type: hypomanic
[2024-01-22] MEDS: HYDROcodone-acetaminophen 5-325 mg Tablet 1 TAB PO ×2 (16:42→22:49)
[2024-01-23] VITALS (10 sets, daily range): BP systolic 118–128; BP diastolic 63–83; PULSE 75–106; RESP 15–20; TEMP 36.4–37.2; O2SAT 96–99
[2024-01-23] MEDS: ibuprofen 800 mg tablet PO (02:11)
[2024-01-23] MEDS: morphine 4 mg/mL SDV 1 mL 2 MG IVP ×4 (02:36→20:36)
[2024-01-23] MEDS: meropenem 500 mg SDV IVP ×3 (04:40→20:36)
[2024-01-23] MEDS: HYDROcodone-acetaminophen 5-325 mg Tablet 1 TAB PO ×4 (05:23→23:15)
[2024-01-23 05:35] LABS: Basophils % 0.6 %; Eosinophils # 0.1 10^3/uL (0.0-0.8); Eosinophils % 1.1 %; Hematocrit 30.2 % (36-47); Lymphocytes % 27.9 %; Mean Corpuscular HGB Conc 30.1 g/dL (30-55); Mean Corpuscular Hemoglobin 28.3 pg (27-33); Mean Corpuscular Volume 94.1 fl (85-98); Mean Platelet Volume 10.8 fL (7.4-10.4); Monocytes # 1.3 10^3/uL (0.2-0.9); Monocytes % 17.8 %; Neutrophils # 3.66 10^3/uL (1.8-7.7); Neutrophils % 52.2 %; Nucleated Red Blood Cells % 0 %; Platelet Count 304 10^3/cmm (157-399); Red Blood Count 3.21 10^6/uL (3.85-5.65); White Blood Count 7.02 10^3/uL (3.29-11.43)
[2024-01-23 06:06] LABS: Alanine Aminotransferase 94 U/L (0-33); Albumin Level 3.2 g/dL (3.5-5.2); Alkaline Phosphatase 257 U/L (35-105); Anion Gap 15.9 (5-19); Aspartate Amino Transferase 59 U/L (0-32); Blood Urea Nitrogen 6 mg/dL (6-20); C Reactive Protein 102.2 mg/L (0.0-4.9); Calcium 8.9 mg/dL (8.5-10.5); Carbon Dioxide 24 mmol/L (22-29); Chloride 106 mmol/L (98-107); Creatinine Clr Calc Pharmacy 123.6272; Glomerular Filtration Rate 141.2 mL/min (90-130); Glucose 95 mg/dL (65-115); Magnesium 2.1 mg/dL (1.7-2.3); Osmolality Calculated 291 mOsm/kg (285-295); Phosphorus 3.8 mg/dL (2.5-4.5); Potassium 3.9 mmol/L (3.5-5.1); Sodium 142 mmol/L (136-145); Total Bilirubin 0.3 mg/dL (0.15-1.2); Total Protein 6.2 g/dL (6.6-8.7)
[2024-01-23 06:14] LABS: Procalcitonin 0.75 ng/mL (0-0.5)
[2024-01-23] MEDS: sodium chloride 0.9% 1,000 ML 75 ML IV ×2 (07:26→17:01)
[2024-01-23] MEDS: pantoprazole DR 40 mg Tablet PO ×2 (08:32→17:01)
[2024-01-23] MEDS: fluoxetine 20 mg Capsule 40 MG PO (08:32)
[2024-01-23] MEDS: apixaban 5 mg Tablet PO ×2 (08:33→20:35)
--- NOTE | 2024-01-23 12:55 | P.PN_ITS ---
Subjective 2 Subjective: Patient was seen this morning, continues to complain of right flank pain, no fevers overnight, nausea is more under control Vitals/I&O/Wt Last Vital Signs Temp 97.6 F 01/23/24 12:00 Pulse 81 01/23/24 12:00 Resp 16 01/23/24 12:00 BP 119/63 01/23/24 12:00 Pulse Ox 99 01/23/24 12:00 O2 Del Method Room Air 01/23/24 12:00 01/22/24 01/23/24 01/23/24 22:59 06:59 14:59 Intake Total 860 / 2037.5 1030 / 3067.5 513.75 / 513.75 Balance 860 / 2037.5 1030 / 3067.5 513.75 / 513.75 Weight last 48 hrs Weight 49.26 kg Weight 49.396 kg Weight 49.804 kg Weight 49.442 kg Physical Exam 2 Const: COMMON NORMALS: no acute distress and patient oriented x3 Resp: COMMON NORMALS: normal respiratory effort, No retractions, No use of accessory muscles and clear to auscultation bilaterally AUSCULTATION: clear to auscultation bilaterally Cardio: COMMON NORMALS: regular rate, regular rhythm, S1 normal heart sound present and S2 normal heart sound present RATE: regular rate RHYTHM: r egular rhythm HEART SOUNDS: S1 normal heart sound present and S2 normal heart sound present GI: COMMON NORMALS: Normal to inspection, nondistended, normoactive bowel sounds present and non-tender Extremity: COMMON NORMALS: no pedal edema Neuro: COMMON NORMALS: patient oriented x3 Psych: COMMON NORMALS: mental status grossly normal Data 01/23/24 04:39 01/23/24 04:39 Micro: Microbiology 01/21/24 19:15 Urine Culture - Preliminary Urine,Clean Catch Gram Negative Rods 01/21/24 18:06 Blood Culture - Preliminary Blood NEGATIVE TO DATE 01/21/24 17:38 Blood Culture - Preliminary Blood NEGATIVE TO DATE A&P Assessment and plan (1) C. difficile colitis: (2) Pyelonephritis: (3) Septicemia: (4) Vapes nicotine containing substance: (5) Bilateral pulmonary embolism: (6) Bipolar disorder, unspecified: Qualifiers: Active/Remission status: currently active Current bipolar episode type: hypomanic Qualified Code(s): F31.0 - Bipolar disorder, current episode hypomanic Plan Sepsis related to right-sided pyelonephritis No sign of hydronephrosis or obstructive stone Criteria met with tachypnea tachycardia fever leukocytosis, lactic acid pending Will expand antibiotic coverage to meropenem 5 mL IV push every 8 hours [address]I screen negative CT abdomen pelvis did not show any sign of appendicitis I will keep patient on GI soft diet Antiemetics Opioids for severe pain continue IV fluids Transaminitis, ? 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 difficile colitis A04.72 Pyelonephritis N12 Septicemia A41.9 Vapes nicotine containing substance Z72.0 Bilateral pulmonary embolism I26.99 Bipolar affective disorder, current episode hypomanic F31.0 Active/Remission status: currently active Current bipolar episode type: hypomanic
[2024-01-23] MEDS: gabapentin 300 mg Capsule 600 MG PO ×2 (17:01→20:35)
[2024-01-23] MEDS: ALPRAZolam 0.5 mg Tablet PO (23:15)
[2024-01-24] VITALS (8 sets, daily range): BP systolic 109–130; BP diastolic 74–85; PULSE 78–93; RESP 15–19; TEMP 36.3–36.7; O2SAT 97
[2024-01-24] MEDS: HYDROmorphone 1 mg/mL INJ 1 mL 0.4 MG IVP ×3 (00:28→10:33)
[2024-01-24] MEDS: meropenem 500 mg SDV IVP ×2 (03:34→11:11)
[2024-01-24 05:51] LABS: Basophils % 0.7 %; Eosinophils # 0.2 10^3/uL (0.0-0.8); Eosinophils % 3.5 %; Hematocrit 29.5 % (36-47); Lymphocytes # 2.2 10^3/uL (0.8-4.8); Lymphocytes % 36.2 %; Mean Corpuscular HGB Conc 30.5 g/dL (30-55); Mean Corpuscular Volume 95.2 fl (85-98); Mean Platelet Volume 10.3 fL (7.4-10.4); Monocytes # 0.5 10^3/uL (0.2-0.9); Monocytes % 7.6 %; Neutrophils # 3.14 10^3/uL (1.8-7.7); Neutrophils % 51.7 %; Nucleated Red Blood Cells % 0 %; Platelet Count 393 10^3/cmm (157-399); Red Cell Distribution Width 15.9 % (12.1-15.1); White Blood Count 6.07 10^3/uL (3.29-11.43)
[2024-01-24 06:10] LABS: Alanine Aminotransferase 63 U/L (0-33); Albumin Level 3.1 g/dL (3.5-5.2); Alkaline Phosphatase 209 U/L (35-105); Anion Gap 12.7 (5-19); Aspartate Amino Transferase 22 U/L (0-32); Blood Urea Nitrogen 4 mg/dL (6-20); C Reactive Protein 47.3 mg/L (0.0-4.9); Calcium 8.6 mg/dL (8.5-10.5); Carbon Dioxide 27 mmol/L (22-29); Chloride 108 mmol/L (98-107); Creatinine Clr Calc Pharmacy 143.3816; Globulin 2.9 g/dL (1.3-4.6); Glomerular Filtration Rate 141.2 mL/min (90-130); Glucose 88 mg/dL (65-115); Osmolality Calculated 294 mOsm/kg (285-295); Phosphorus 4.2 mg/dL (2.5-4.5); Potassium 3.7 mmol/L (3.5-5.1); Sodium 144 mmol/L (136-145); Total Bilirubin 0.2 mg/dL (0.15-1.2)
[2024-01-24 06:15] LABS: Procalcitonin 0.37 ng/mL (0-0.5)
[2024-01-24] MEDS: sodium chloride 0.9% 1,000 ML 75 ML IV (07:36)
[2024-01-24] MEDS: ALPRAZolam 0.5 mg Tablet PO (07:43)
[2024-01-24] MEDS: HYDROcodone-acetaminophen 5-325 mg Tablet 1 TAB PO ×2 (07:43→13:43)
[2024-01-24] MEDS: apixaban 5 mg Tablet PO (07:44)
[2024-01-24] MEDS: pantoprazole DR 40 mg Tablet PO (07:44)
[2024-01-24] MEDS: gabapentin 300 mg Capsule 600 MG PO ×2 (07:44→12:36)
[2024-01-24] MEDS: fluoxetine 20 mg Capsule 40 MG PO (07:44)
--- NOTE | 2024-01-24 13:12 | P.PN_ITS ---
Subjective 2 Subjective: Patient was seen this morning no fevers overnight does have right flank pain, fatigue, malaise Vitals/I&O/Wt Last Vital Signs Temp 97.5 F L 01/24/24 07:18 Pulse 91 01/24/24 07:18 Resp 18 01/24/24 10:33 BP 122/85 01/24/24 07:18 Pulse Ox 97 01/24/24 07:18 O2 Del Method Room Air 01/24/24 07:18 01/23/24 01/24/24 01/24/24 22:59 06:59 14:59 Intake Total 1318.75 / 1952.50 1209 / 3161.50 736.5 / 736.5 Output Total 200 / 200 Balance 1318.75 / 1952.50 1209 / 3161.50 536.5 / 536.5 Weight last 48 hrs Weight 57.289 kg Weight 49.26 kg Physical Exam 2 Const: COMMON NORMALS: no acute distress and patient oriented x3 Resp: COMMON NORMALS: normal respiratory effort, No retractions, No use of accessory muscles and clear to auscultation bilaterally AUSCULTATION: clear to auscultation bilaterally Cardio: COMMON NORMALS: regular rate, regular rhythm, S1 normal heart sound present and S2 normal heart sound present RATE: regular rate RHYTHM: r egular rhythm HEART SOUNDS: S1 normal heart sound present and S2 normal heart sound present GI: COMMON NORMALS: Normal to inspection, nondistended, normoactive bowel sounds present and non-tender Extremity: COMMON NORMALS: no pedal edema Neuro: COMMON NORMALS: patient oriented x3 Psych: COMMON NORMALS: mental status grossly normal Data 01/24/24 05:40 01/24/24 05:40 Micro: Microbiology 01/21/24 19:15 Urine Culture - Preliminary Urine,Clean Catch Gram Negative Rods A&P Assessment and plan (1) C. difficile colitis: (2) Pyelonephritis: (3) Septicemia: (4) Vapes nicotine containing substance: (5) Bilateral pulmonary embolism: (6) Bipolar disorder, unspecified: Qualifiers: Active/Remission status: currently active Current bipolar episode type: hypomanic Qualified Code(s): F31.0 - Bipolar disorder, current episode hypomanic Plan Sepsis related to right-sided pyelonephritis No sign of hydronephrosis or obstructive stone Criteria met with tachypnea tachycardia fever leukocytosis, lactic acid pending Will expand antibiotic coverage to meropenem STI screen negative CT abdomen pelvis did not show any sign of appendicitis Regular diet Antiemetics De-escalate to hydrocodone for pain Stop fluids Transaminitis, ? 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 difficile colitis A04.72 Pyelonephritis N12 Septicemia A41.9 Vapes nicotine containing substance Z72.0 Bilateral pulmonary embolism I26.99 Bipolar affective disorder, current episode hypomanic F31.0 Active/Remission status: currently active Current bipolar episode type: hypomanic
[2024-01-24 13:25] LABS: C.Diff PCR (Lab) POSITIVE (Negative)
[2024-01-24] MEDS: vancomycin 125 mg Capsule PO (14:59)
--- NOTE | 2024-01-24 15:20 | P.DS_ITS ---
Discharge Providers Date of Admission: 01/21/24 20:02 Date of Discharge: January 24, 2024 Attending Provider at Admission: Nadir Hernández MD Attending Provider at Discharge: Ryan Carrasquillo MD Primary Care Provider: Joaquin Mak MD Diagnoses at Discharge Discharge Diagnosis (1) C. difficile colitis: Status: Acute (2) Pyelonephritis: Status: Acute (3) Septicemia: Status: Acute (4) Vapes nicotine containing substance: Status: Acute (5) Bilateral pulmonary embolism: Status: Acute (6) Bipolar disorder, unspecified: Status: Acute Qualifiers: Active/Remission status: currently active Current bipolar episode type: hypomanic Qualified Code(s): F31.0 - Bipolar disorder, current episode hypomanic Reason for Visit Reason for Visit: fever 105.3 , vomitting, body ache , headache Hospital Course Hospital Course this is a 33 y/o F with a past medical history of inflammatory arthritis on leflunomide, history of pulmonary embolism, with pulmonary infarct, on anticoagulant therapy who presents [facility] for right-sided flank pain, fevers, chills Patient was admitted to [facility] for right-sided pyelonephritis, received IV antibiotics, overall clinically improved, discharged on p.o. antibiotics, blood cultures so far no growth, urine cultures showing gram- negative rods Patient had complaints of diarrhea during hospitalization, C. difficile studies were positive, discharged on p.o. vancomycin, instructions to hand wash, decrease transmission fecal oral route, she is considered infectious until her diarrhea has resolved, Physical Exam Const: COMMON NORMALS: no acute distress and patient oriented x3 Resp: COMMON NORMALS: normal respiratory effort, No retractions, No use of accessory muscles and clear to auscultation bilaterally AUSCULTATION: clear to auscultation bilaterally Cardio: COMMON NORMALS: regular rate, regular rhythm, S1 normal heart sound present and S2 normal heart sound present RATE: regular rate RHYTHM: regular rhythm HEART SOUNDS: S1 normal heart sound present and S2 normal heart sound present GI: COMMON NORMALS: Normal to inspection, nondistended, normoactive bowel sounds present and non-tender Extremity: COMMON NORMALS: no pedal edema Neuro: COMMON NORMALS: patient oriented x3 Psych: COMMON NORMALS: mental status grossly normal Discharge Data Studies Completed and Pending Completed Studies During Hospitalization Category Date Time Status CT abdomen pelvis w con* [id number] Urgent Cat Scan 01/21/24 18:16 Completed XR chest 1V portable [id number] Stat Exams 01/21/24 17:19 Completed Pending at discharge Category Date Time Status Blood Culture Stat Lab 01/21/24 18:06 Results C Reactive Protein AM LABS Lab 01/25/24 04:00 Ordered CDIFF [C.Diff PCR (Lab)] Routine Lab 01/24/24 12:15 Results Clostridioides Difficile Toxin Routine Lab 01/24/24 12:15 Results Complete Blood Count w/Auto AM LABS Lab 01/25/24 04:00 Ordered Comprehensive Metabolic Panel AM LABS Lab 01/25/24 04:00 Ordered Magnesium AM LABS Lab 01/25/24 04:00 Ordered Phosphorus AM LABS Lab 01/25/24 04:00 Ordered Procalcitonin AM LABS Lab 01/25/24 04:00 Ordered Urine Culture Stat Lab 01/21/24 19:15 Results Radiology Impressions Chest X-Ray 01/21/24 17:19 IMPRESSION: No acute findings. Abdomen/Pelvis CT 01/21/24 18:16 IMPRESSION: Findings above related to right-sided pyelonephritis which is likely secondary to arising infection from an inflamed urinary bladder. Correlate with urinalysis. Free fluid along the right hemiabdomen. Laboratory Results WBC 6.07 10^3/uL (3.29-11.43) 01/24/24 05:40 RBC 3.10 10^6/uL (3.85-5.65) L 01/24/24 05:40 Hgb 9.00 g/dL (11.27-16.99) L 01/24/24 05:40 Hct 29.5 % (36-47) L 01/24/24 05:40 MCV 95.2 fl (85-98) 01/24/24 05:40 MCH 29.0 pg (27-33) 01/24/24 05:40 MCHC 30.5 g/dL (30-55) 01/24/24 05:40 RDW 15.9 % (12.1-15.1) H 01/24/24 05:40 Plt Count 393 10^3/cmm (157-399) 01/24/24 05:40 MPV 10.3 fL (7.4-10.4) 01/24/24 05:40 Neut % (Auto) 51.7 % 01/24/24 05:40 Lymph % (Auto) 36.2 % 01/24/24 05:40 [place] % (Auto) 7.6 % 01/24/24 05:40 Eos % (Auto) 3.5 % 01/24/24 05:40 Baso % (Auto) 0.7 % 01/24/24 05:40 Neut # (Auto) 3.14 10^3/uL (1.8-7.7) 01/24/24 05:40 Lymph # (Auto) 2.2 10^3/uL (0.8-4.8) 01/24/24 05:40 [place] # (Auto) 0.5 10^3/uL (0.2-0.9) 01/24/24 05:40 Eos # (Auto) 0.2 10^3/uL (0.0-0.8) 01/24/24 05:40 Baso # (Auto) 0.0 10^3/uL (0.0-0.1) 01/24/24 05:40 Nucleated RBC % (auto) 0 % 01/24/24 05:40 Nucleated RBCs # 0.0 /100WBC 01/24/24 05:40 Sodium 144 mmol/L (136-145) 01/24/24 05:40 Potassium 3.7 mmol/L (3.5-5.1) 01/24/24 05:40 Chloride 108 mmol/L (98-107) H 01/24/24 05:40 Carbon Dioxide 27 mmol/L (22-29) 01/24/24 05:40 Anion Gap 12.7 (5-19) 01/24/24 05:40 BUN 4 mg/dL (6-20) L 01/24/24 05:40 Creatinine 0.5 mg/dL (0.5-0.9) 01/24/24 05:40 GFR Calculation 141.2 mL/min (90-130) H 01/24/24 05:40 Glucose 88 mg/dL (65-115) 01/24/24 05:40 Estimat Average Glucose 97 01/21/24 17:38 Hemoglobin A1c 5.0 % (4.0-6.0) 01/21/24 17:38 Calculated Osmolality 294 mOsm/kg (285-295) 01/24/24 05:40 Lactic Acid 2.7 mmol/L (0.5-2.2) H 01/21/24 17:38 Lactic Acid (Sepsis) 0.8 mmol/L (0.5-2.2) 01/21/24 20:53 Calcium 8.6 mg/dL (8.5-10.5) 01/24/24 05:40 Phosphorus 4.2 mg/dL (2.5-4.5) 01/24/24 05:40 Magnesium 2.0 mg/dL (1.7-2.3) 01/24/24 05:40 Total Bilirubin 0.2 mg/dL (0.15-1.2) 01/24/24 05:40 AST 22 U/L (0-32) 01/24/24 05:40 ALT 63 U/L (0-33) H 01/24/24 05:40 Alkaline Phosphatase 209 U/L (35-105) H 01/24/24 05:40 C-Reactive Protein 47.3 mg/L (0.0-4.9) H 01/24/24 05:40 Total Protein 6.0 g/dL (6.6-8.7) L 01/24/24 05:40 Albumin 3.1 g/dL (3.5-5.2) L 01/24/24 05:40 Globulin 2.9 g/dL (1.3-4.6) 01/24/24 05:40 Lipase 53 U/L (13-60) 01/21/24 17:38 Procalcitonin 0.37 ng/mL (0-0.5) 01/24/24 05:40 HCG, Qual Negative (Negative) 01/21/24 17:38 Urine Color Yellow (Yellow) 01/21/24 19:15 Urine Appearance Cloudy (CLEAR) A 01/21/24 19:15 Urine pH 6.0 (5-7) 01/21/24 19:15 Ur Specific [place] 1.015 (1.005-1.030) 01/21/24 19:15 Urine Protein 2+ (Negative) A 01/21/24 19:15 Urine Glucose (UA) Negative (Normal) 01/21/24 19:15 Urine Ketones 2+ (Negative) H 01/21/24 19:15 Urine Blood 2+ (Negative) A 01/21/24 19:15 Urine Nitrate Positive (Negative) A 01/21/24 19:15 Urine Bilirubin Negative (Negative) 01/21/24 19:15 Urine Urobilinogen 1.0 mg/dL (Negative) 01/21/24 19:15 Ur Leukocyte Esterase 3+ (Negative) A 01/21/24 19:15 Urine RBC 0-2 /hpf (0-2) 01/21/24 19:15 Urine WBC >100 /hpf (0-5) H 01/21/24 19:15 Ur Squamous Epith Cells 0-5 /hpf (0-5) 01/21/24 19:15 Amorphous Sediment Not Reportable 01/21/24 19:15 Urine Bacteria 4+ /hpf (NONE) H 01/21/24 19:15 Hyaline Casts 2.87 /lpf 01/21/24 19:15 C. trachomatis (PCR) Not detected 01/21/24 19:15 C. difficile (PCR) Positive (Negative) H 01/24/24 12:15 Coronavirus (PCR) No result (Negative) 01/21/24 17:40 HIV 1&2 Ab & HIV 1 Ag Non-reactive (Non-Reactiv) 01/21/24 17:38 HIV 1&2 Antibody Non-reactive (Non-Reactiv) 01/21/24 17:38 Influenza A (PCR) No result (Negative) 01/21/24 17:40 Influenza Type B (PCR) No result (Negative) 01/21/24 17:40 N. gonorrhoeae (PCR) Not detected 01/21/24 19:15 RSV (PCR) No result (Negative) 01/21/24 17:40 Vitals Last Vital Signs Temp 98.0 F 01/24/24 11:08 Pulse 78 01/24/24 11:08 Resp 15 01/24/24 11:08 BP 118/80 01/24/24 11:08 Pulse Ox 97 01/24/24 11:08 O2 Del Method Room Air 01/24/24 11:08 Discharge Plan Discharge Patient Disposition: Home Condition: Stable Prescriptions: New vancomycin 125 mg capsule 125 mg PO Q6H 10 Days Qty: 40 0RF levofloxacin 750 mg tablet 750 mg PO DAILY 5 Days Qty: 5 0RF Continued cetirizine [Zyrtec] 10 mg tablet 10 mg PO DAILY Qty: 30 0RF (DME) Hinged Knee Brace See Rx Instructions .Route .MEDSUPPLY Qty: 1 0RF Rx Instructions: As directed ondansetron 8 mg tablet,disintegrating 8 mg PO Q8H PRN (Reason: nausea and vomiting) Qty: 20 0RF fluoxetine [Prozac] 40 mg capsule 40 mg PO DAILY Qty: 30 2RF gabapentin 300 mg capsule 600 mg PO QID 30 Days Qty: 240 3RF triamterene-hydrochlorothiazid 37.5-25 mg capsule 1 cap PO DAILY alprazolam 0.25 mg tablet 0.25 mg PO TID PRN (Reason: Anxiety) fluticasone propionate 50 mcg/actuation spray,suspension 2 spray INTRANASAL DAILY valacyclovir [Valtrex] 1 gram Tablet 1,000 mg PO PRN PRN (Reason: herpes outbreak) Eliquis 5 mg tablet 5 mg PO BID Held leflunomide 20 mg tablet 20 mg PO DAILY Qty: 30 3RF Hold Instructions: Resume on 01/31/24. Discharge Orders: Discharge Order (Routine); Ordered 01/24/24 Ordered By: Ryan Carrasquillo Referrals: Joaquin Mak MD [Primary Care Provider] - (We have notified your physician's clinic of the need for a follow-up appointment to be scheduled. If you have not heard from them within the next 2 business days, please call them directly. SENT REFERRAL) Discharge Diet: Regular Discharge Activity: Resume usual activity Patient Instructions: Levofloxacin (By mouth) (Levaquin, Levaquin Leva-vazquez), Vancomycin (By mouth), C. Diff (Clostridioides Difficile) Infection (DC), Opioid Safety, Pyelonephritis Activity Restrictions/Additional Instructions: -for you clostridium difficile, take vancomycin as prescribed, please handwash, to avoid fecal oral tranmission -for you uti and pyelnopheirits take levofloxacin as prescribed -hold leflunomide until completed antibiotics Discharge Attestations Time Spent in Discharge Care*: greater than 30 min Quality Metrics Clinical Quality Measures [ No reported AMI, CVA or VTE this stay] Coding Level of Care Code 50363 Total time (in minutes) for Discharge: 45 Diagnoses C. difficile colitis A04.72 Pyelonephritis N12 Septicemia A41.9 Vapes nicotine containing substance Z72.0 Bilateral pulmonary embolism I26.99 Bipolar affective disorder, current episode hypomanic F31.0 Active/Remission status: currently active Current bipolar episode type: hypomanic
--- NOTE | 2024-01-24 16:30 | PC.NURSE ---
Discharge instructions provided to pt and her daughter. No questions or concerns voiced at this time. To private vehicle via wheelchair with all belongings.
== END 2024-01-24 16:31 | disposition home or self-care (01) | DRG 872 ==
LOC: ER 19:57 → MEDSURG 20:34
PROVIDERS: Emergency Medicine; Admitting Provider Internal Medicine; Emergency Provider Physician Assistant; PCP Family Medicine; Visit Provider Family Medicine
DX: A41.9 Sepsis, unspecified organism (principal); N12 Tubulo-interstitial nephritis, not specified as acute or chronic; A04.72 Enterocolitis due to Clostridium difficile, not specified as recurrent; D84.821 Immunodeficiency due to drugs; F31.0 Bipolar disorder, current episode hypomanic; K52.9 Noninfective gastroenteritis and colitis, unspecified; T45.1X5A Adverse effect of antineoplastic and immunosuppressive drugs, initial encounter; F17.290 Nicotine dependence, other tobacco product, uncomplicated; E86.0 Dehydration; Z86.711 Personal history of pulmonary embolism; Z87.440 Personal history of urinary (tract) infections; Z90.710 Acquired absence of both cervix and uterus; Z90.722 Acquired absence of ovaries, bilateral; Z82.3 Family history of stroke; Z82.49 Family history of ischemic heart disease and other diseases of the circulatory system; Z80.8 Family history of malignant neoplasm of other organs or systems; Z83.3 Family history of diabetes mellitus; Z80.3 Family history of malignant neoplasm of breast; Z82.61 Family history of arthritis; Z79.01 Long term (current) use of anticoagulants
CPT/HCPCS: 0241U; 36415; 71045; 74177; 80048; 80053; 81001; 83036; 83605; 83690; 83735; 84100; 84145; 84703; 85025; 86140; 87040; 87077; 87086; 87186; 87491; 87493; 87591; 87806; 96365; 96367; 96375; 96376; 99285; J0696; J0744; J1171; J2185; J2270; J2405; J3490; J7030

== ENCOUNTER 2024-02-21 16:09 | Emergency (ER) | payer MEDICAID, SELFPAY ==
[2024-02-21] VITALS (9 sets, daily range): BP systolic 108–129; BP diastolic 71–97; PULSE 86–100; RESP 19–32; TEMP 36.4; O2SAT 96–100; BMI 21.2
--- NOTE | 2024-02-21 16:15 | CTR_ITS ---
PROCEDURE INFORMATION: Exam: CT Head Without Contrast Exam date and time: 02/21/2024 4:54 PM Age: 33 years old Clinical indication: Injury or trauma; Fall; Blunt trauma (contusions or hematomas); Additional info: Fall, head injury TECHNIQUE: Imaging protocol: Computed tomography of the head without contrast. Radiation optimization: All CT scans at this facility use at least one of these dose optimization techniques: automated exposure control; mA and/or kV adjustment per patient size (includes targeted exams where dose is matched to clinical indication); or iterative reconstruction. COMPARISON: CT angio headneck* [id number] 04/21/2020 8:12 PM RADIATION DOSE METRICS: Total DLP (mGy-cm): 1044.48 FINDINGS: Brain: Normal. No hemorrhage. Unremarkable white matter. No mass effect or acute infarct. Cerebral ventricles: No ventriculomegaly. No midline shift. Paranasal sinuses: Visualized sinuses are unremarkable. No fluid levels. Mastoid air cells: Visualized mastoid air cells are well aerated. Bones: Unremarkable. No acute fracture. Soft tissues: Unremarkable. CT/CT head wo con* [id number] IMPRESSION: No acute intracranial abnormality.
--- NOTE | 2024-02-21 16:22 | W.ED.ALCOHOL ---
HPI - Alcohol General: Chief Complaint: Alcohol Stated Complaint: intoxication, syncope Time Seen by Provider: 02/21/24 16:10 History of Present Illness: 33-year-old female with a history of seizure disorder, pulmonary embolism with chronic anticoagulation on Eliquis, who presents emergency room by ambulance with agitation, decreased responsiveness at times and reported alcohol intoxication. Apparently she has had 10 shots today and may have taken other drugs as well. She initially is unresponsive but then awakes and talks to me normally. She tells me she has had a lot to drink and she is taken other things. She does not elaborate. She says she did fall and hit her head. She has got no focal motor deficits. No abdominal pain. No chest pain. She is maintaining her airway. Related Data Home Medications Medication Instructions Recorded Confirmed triamterene 37.5 1 cap PO DAILY 12/21/22 02/21/24 mg-hydrochlorothiazide 25 mg capsule alprazolam 0.25 mg tablet 0.25 mg PO TID PRN Anxiety 08/06/23 02/21/24 apixaban 5 mg tablet (Eliquis) 5 mg PO BID 01/22/24 02/21/24 hydrocodone 5 mg-acetaminophen 325 1 tab PO TID 02/21/24 02/21/24 mg tablet ondansetron 4 mg disintegrating 4 mg PO TID 02/21/24 02/21/24 tablet topiramate 200 mg tablet 200 mg PO BID 02/21/24 02/21/24 tramadol 50 mg tablet 50 mg PO Q4H 02/21/24 02/21/24 trazodone 150 mg tablet 150 mg PO QPM 02/21/24 02/21/24 Previous Rx's Medication Instructions Recorded leflunomide 20 mg tablet 20 mg PO DAILY #30 tabs 08/15/23 Hinged Knee Brace #1 ea 08/16/23 fluoxetine 40 mg capsule (Prozac) 40 mg PO DAILY #30 caps 12/17/23 gabapentin 300 mg capsule 600 mg (2 x 300 mg) PO QID 30 days 12/17/23 #240 caps Allergies Allergy/AdvReac Type Severity Reaction Status Date / Time methylprednisolone Allergy Severe ALGY-Anaphy Verified 12/25/23 10:38 laxis Latex, Natural Rubber Allergy Intermediate rash, hives Verified 12/25/23 10:38 amoxicillin Allergy ALGY-Hives Verified 12/25/23 10:38 methotrexate AdvReac Intermediate migraines, Verified 12/25/23 10:38 N/V Review of Systems General: Reports: ROS unobtainable due to mental status PFSH ED PFSH: Medical History Family history of colon cancer Bilateral pulmonary embolism Vapes nicotine containing substance Seizures Hx of migraines Ovarian mass, right Family history of psoriasis in father High risk medication use Inflammatory back pain Inflammatory arthritis Psychiatric care 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 Mosher at [facility] History of tubal ligation 12/2015- per Dr. Mosher at [facility] H/O removal of cyst [address] Mosher Family History Mother Stroke Hyperlipidemia Family history of thyroid problem Hypertension Cancer of tongue Father Degenerative disc disease Diabetes Unknown Breast cancer maternal great aunt Grandmother Ovarian cancer maternal Uterine cancer maternal Other Cancer Chronic kidney disease (CKD) Rheumatoid arthritis Denies family history of Lupus Social History Smoking and tobacco/nicotine status: never used tobacco/nicotine Second hand smoke exposure: No Alcohol intake: never Substance/Drug Use: never Physical Exam Narrative: EXAM NARRATIVE: General: Patient is initially unresponsive but then awakens and talks. She does appear intoxicated. Skin: Warm, dry. Head: Normocephalic, atraumatic. Neck: Supple, trachea midline. Eye: Extraocular movements are intact. Ears, nose, mouth and throat: mucosa moist. Cardiovascular: Regular, Normal peripheral perfusion. Respiratory: Lungs are clear to auscultation, respirations are non-labored, breath sounds are equal, Symmetrical chest wall expansion. Gastrointestinal: Soft, Nontender, Non distended Musculoskeletal: Normal ROM, no deformity. Neurological: No focal neurological deficit observed. Patient initially will not respond but then awakens, sits up and talks normally although may be a bit slurred. Intoxicated. Psychiatric: Patient appears intoxicated. Course Vital Signs: Vital signs: Vital Signs Temperature 97.5 F L 02/21/24 16:10 Pulse Rate 86 02/21/24 16:45 Respiratory Rate 30 H 02/21/24 16:45 Blood Pressure 116/72 02/21/24 17:20 Pulse Oximetry 97 02/21/24 17:20 Oxygen Delivery Me thod Room Air 02/21/24 16:42 MDM - Alcohol Medical Decision Making Medical decision making: Differential diagnosis including but not limited to and based on the above HPI, review of systems and physical exam: In this patient with altered mental status: Stroke. Hypoglycemia. Metabolic encephalopathy. Infections such as pneumonia, urinary tract infection, Covid-19, Influenza. Electrolyte abnormalities such as hypernatremia. Renal failure / uremia. Hepatic encephalopathy. Hypoxemia. Hypercapnic respiratory failure. Psychosis. Drug or alcohol intoxication. Medication overdose. Orders placed to evaluate differential diagnosis based on the above differential, HPI and physical exam EKG: Time 1625. Rate 81. Normal sinus rhythm, No ST-T changes, no ectopy, normal DE & QRS intervals, This was reviewed and interpreted by myself the ER physician at 1630 CT head: No acute intracranial process. no intracranial hemorrhage, no evidence of infarct. no evidence of acute fracture.This was reviewed and interpreted by myself the ER physician. Chest x-ray: No acute process. No infiltrate. No pneumothorax. This was reviewed and interpreted by myself the emergency room physician. I also reviewed the radiology report. AB.4 . Is on room air. No CO2 retention. No hypoxemia. Lab Review: Laboratory results were reviewed and interpreted by myself the emergency room physician. No leukocytosis. No anemia. No renal failure. Sodium is a bit elevated at 148. Drug screen is positive for benzodiazepines and marijuana. Blood alcohol level is 294. I reviewed the patient's medical record. Reexamination: Patient has remained alert after arrival. She has been somewhat agitated and obviously intoxicated. No focal motor deficits. Workup is normal. Other than she has a blood alcohol level of 294 and is positive for marijuana and her drug screen. She has continued to deny any suicidal or homicidal ideations. Ex- was requesting that she be placed in psychiatric unit, however I do not have any criteria for admission at this time. She is simply intoxicated. She will not be discharged until she has a ride home. Assessment and plan: Alcohol intoxication - Discharged home - Discussed plan with patient. Answered any questions. - Evaluation and treatment of this problem were appropriate in the emergency setting. Lab Data 02/21/24 17:00 02/21/24 17:[address] 02/21/24 16:15 IMPRESSION: No acute intracranial abnormality. Chest X-Ray 02/21/24 16:29 IMPRESSION: No acute findings. Laboratory Results WBC 8.84 10^3/uL (3.29-11.43) 02/21/24 17:00 RBC 4.00 10^6/uL (3.85-5.65) 02/21/24 17:00 Hgb 11.20 g/dL (11.27-16.99) L 02/21/24 17:00 Hct 35.9 % (36-47) L 02/21/24 17:00 MCV 89.8 fl (85-98) 02/21/24 17:00 MCH 28.0 pg (27-33) 02/21/24 17:00 MCHC 31.2 g/dL (30-55) 02/21/24 17:00 RDW 16.0 % (12.1-15.1) H 02/21/24 17:00 Plt Count 350 10^3/cmm (157-399) 02/21/24 17:00 MPV 9.8 fL (7.4-10.4) 02/21/24 17:00 Neut % (Auto) 65.2 % 02/21/24 17:00 Lymph % (Auto) 27.4 % 02/21/24 17:00 [place] % (Auto) 6.0 % 02/21/24 17:00 Eos % (Auto) 0.6 % 02/21/24 17:00 Baso % (Auto) 0.6 % 02/21/24 17:00 Neut # (Auto) 5.77 10^3/uL (1.8-7.7) 02/21/24 17:00 Lymph # (Auto) 2.4 10^3/uL (0.8-4.8) 02/21/24 17:00 [place] # (Auto) 0.5 10^3/uL (0.2-0.9) 02/21/24 17:00 Eos # (Auto) 0.1 10^3/uL (0.0-0.8) 02/21/24 17:00 Baso # (Auto) 0.1 10^3/uL (0.0-0.1) 02/21/24 17:00 Nucleated RBC % (auto) 0 % 02/21/24 17:00 Nucleated RBCs # 0.0 /100WBC 02/21/24 17:00 Specimen Type Arterial 02/21/24 16:32 Sample Site Radial, left 02/21/24 16:32 ABG pH 7.40 (7.35-7.45) 02/21/24 16:32 ABG pCO2 40.0 mmHg (35-45) 02/21/24 16:32 ABG pO2 91.0 mmHg (80.0-100.0) 02/21/24 16:32 ABG PO2/FiO2 Ratio 433 02/21/24 16:32 ABG HCO3 24.5 mmol/L (22-26) 02/21/24 16:32 ABG O2 Saturation 97.2 02/21/24 16:32 ABG Base Excess -0.4 mmol/L (-2.0-2.0) 02/21/24 16:32 Da Test Pos 02/21/24 16:32 A-a O2 Gradient 1.2 mmHg (5-10) L 02/21/24 16:32 Hematocrit 33.2 % (37-47) L 02/21/24 16:32 Hgb O2 Saturation 95.7 % (95-100) 02/21/24 16:32 Carboxyhemoglobin 1.4 %THgb (0.4-20.1) 02/21/24 16:32 Methemoglobin 0.2 % (0.4-1.5) L 02/21/24 16:32 Total Hemoglobin 10.8 g/dL (12-16) L 02/21/24 16:32 Sodium 153.0 mmol/L (131-143) H 02/21/24 16:32 Potassium 3.4 mmol/L (3.5-5.0) L 02/21/24 16:32 Glucose 89.0 mg/dL (70-115) 02/21/24 16:32 Ionized Calcium 1.2 mmol/L (1.1-1.4) 02/21/24 16:32 O2 Delivery Device Room air 02/21/24 16:32 FiO2 21.0 % 02/21/24 16:32 Engineering Coordinator ID [place] 02/21/24 16:32 Sodium 148 mmol/L (136-145) H 02/21/24 17:00 Potassium 3.4 mmol/L (3.5-5.1) L 02/21/24 17:00 Chloride 111 mmol/L (98-107) H 02/21/24 17:00 Carbon Dioxide 25 mmol/L (22-29) 02/21/24 17:00 Anion Gap 15.4 (5-19) 02/21/24 17:00 BUN 7 mg/dL (6-20) 02/21/24 17:00 Creatinine 0.7 mg/dL (0.5-0.9) 02/21/24 17:00 GFR Calculation 95.8 mL/min (90-130) 02/21/24 17:00 Glucose 88 mg/dL (65-115) 02/21/24 17:00 Calculated Osmolality 303 mOsm/kg (285-295) H 02/21/24 17:00 Lactic Acid 2.3 mmol/L (0.5-2.2) H 02/21/24 17:00 Calcium 9.6 mg/dL (8.5-10.5) 02/21/24 17:00 Total Bilirubin 0.3 mg/dL (0.15-1.2) 02/21/24 17:00 AST 27 U/L (0-32) 02/21/24 17:00 ALT 31 U/L (0-33) 02/21/24 17:00 Alkaline Phosphatase 103 U/L (35-105) 02/21/24 17:00 Total Protein 7.5 g/dL (6.6-8.7) 02/21/24 17:00 Albumin 4.3 g/dL (3.5-5.2) 02/21/24 17:00 Globulin 3.2 g/dL (1.3-4.6) 02/21/24 17:00 TSH 0.26 uIU/mL (0.27-4.20) L 02/21/24 17:00 HCG, Qual Negative (Negative) 02/21/24 17:40 Urine Color Yellow (Yellow) 02/21/24 17:40 Urine Appearance Clear (CLEAR) 02/21/24 17:40 Urine pH 7.0 (5-7) 02/21/24 17:40 Ur Specific [place] 1.004 (1.005-1.030) L 02/21/24 17:40 Urine Protein Negative (Negative) 02/21/24 17:40 Urine Glucose (UA) Negative (Normal) 02/21/24 17:40 Urine Ketones Negative (Negative) 02/21/24 17:40 Urine Blood Negative (Negative) 02/21/24 17:40 Urine Nitrate Negative (Negative) 02/21/24 17:40 Urine Bilirubin Negative (Negative) 02/21/24 17:40 Urine Urobilinogen 0.2 mg/dL (Negative) 02/21/24 17:40 Ur Leukocyte Esterase Negative (Negative) 02/21/24 17:40 Urine RBC 0-2 /hpf (0-2) 02/21/24 17:40 Urine WBC 0-5 /hpf (0-5) 02/21/24 17:40 Ur Squamous Epith Cells 0-5 /hpf (0-5) 02/21/24 17:40 Amorphous Sediment Not Reportable 02/21/24 17:40 Urine Bacteria None seen /hpf (NONE) 02/21/24 17:40 Hyaline Casts 0-4 /lpf H 02/21/24 17:40 Salicylates 0.5 mg/dL (3-10) L 02/21/24 17:00 Urine Opiates Screen Negative ng/mL (Negative) 02/21/24 17:40 Acetaminophen < 5.0 ug/mL (10-30) L 02/21/24 17:00 Ur Barbiturates Screen Negative ng/mL (Negative) 02/21/24 17:40 Ur Phencyclidine Scrn Negative ng/mL (Negative) 02/21/24 17:40 Ur Amphetamines Screen Negative ng/mL (Negative) 02/21/24 17:40 U Benzodiazepines Scrn Positive ng/mL (Negative) H 02/21/24 17:40 Urine Cocaine Screen Negative ng/mL (Negative) 02/21/24 17:40 U Marijuana (THC) Screen Positive ng/mL (Negative) H 02/21/24 17:40 Ethyl Alcohol 294 mg/dL (0-10) H 02/21/24 17:00 All radiology interpretation(s) finalized by discharge Discharge Plan Discharge Patient Disposition: Home Clinical Impression: Alcohol intoxication Condition: Stable Prescriptions: No Action (DME) Hinged Knee Brace See Rx Instructions .Route .MEDSUPPLY Qty: 1 0RF Rx Instructions: As directed fluoxetine [Prozac] 40 mg capsule 40 mg PO DAILY Qty: 30 2RF gabapentin 300 mg capsule 600 mg PO QID 30 Days Qty: 240 3RF leflunomide 20 mg tablet 20 mg PO DAILY Qty: 30 3RF Hold Instructions: Resume on 01/31/24. hydrocodone-acetaminophen 5-325 mg tablet 1 tab PO TID tramadol 50 mg tablet 50 mg PO Q4H trazodone 150 mg tablet 150 mg PO QPM topiramate 200 mg tablet 200 mg PO BID ondansetron 4 mg tablet,disintegrating 4 mg PO TID triamterene-hydrochlorothiazid 37.5-25 mg capsule 1 cap PO DAILY alprazolam 0.25 mg tablet 0.25 mg PO TID PRN (Reason: Anxiety) Eliquis 5 mg tablet 5 mg PO BID Discharge Orders: Discharge ED (Routine); Ordered 02/21/24 Ordered By: Giulia Torres Referrals: Joaquin Mak MD [Primary Care Provider] - Discharge Diet: Usual diet Discharge Activity: Limit activity as instructed Patient Instructions: Alcohol Intoxication (DC), Opioid Safety, Pain Management Activity Restrictions/Additional Instructions: Thank you for choosing [facility] for your healthcare needs today. Please realize this is an emergency room and that we are providing you with a medical screening exam and this may not be complete and all inclusive of all the testing and or work up that you may need to determine your ailment or severity of your illness. You have been screened and evaluated and felt safe for discharge. Health conditions do change or evolve sometimes and as such it is important that you follow up with your Primary Doctor to be re checked, 3-5 days is a general good time frame for follow up. You are always welcome to return to the ED for re assessment if your symptoms are worsening or you have new concerns Coding Level of Care Code ED Commanding Officer Traffic Division for Mark Berg
--- NOTE | 2024-02-21 16:25 | ECG_ITS ---
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 Measurements Intervals [place] Rate: 81 P: 40 CA: 151 QRS: 37 QRSD: 82 T: 59 QT: 398 QTc: 463 Interpretive Statements SINUS RHYTHM Compared to ECG 08/09/2023 14:21:59 T-wave abnormality no longer present Electronically Signed On 02-22-2024 21:27:12 BACK UP SCAN COORDINATOR by Geena Multani M.D. [email or web address]
--- NOTE | 2024-02-21 16:29 | XRR_ITS ---
PROCEDURE INFORMATION: Exam: XR Chest Exam date and time: 02/21/2024 5:23 PM Age: 33 years old Clinical indication: Dyspnea; Additional info: C/O uresponsive, per EMS PT would hold her breath, has had 10 shots ETOH, has blood clots in lungs and heart and a seizure HX, currently on thinners, stated she had fallen a few times today TECHNIQUE: Imaging protocol: Radiologic exam of the chest. Views: 1 view. COMPARISON: CR (CHEST, ) 01/21/2024 5:38 PM FINDINGS: Lungs: Unremarkable. No consolidation or mass. Pleural spaces: Unremarkable. No pleural effusion. No pneumothorax. Heart/Mediastinum: Unremarkable. No cardiomegaly. Bones/joints: Unremarkable. XR/XR chest 1V portable [id number] IMPRESSION: No acute findings.
[2024-02-21 16:44] LABS: Alveolar-Arterial Oxygen Gradi 1.2 mmHg (5-10); Arterial Blood Gas Hematocrit 33.2 % (37-47); Base Excess ABG -0.4 mmol/L (-2.0-2.0); Blood Gas Allen Test Pos; Blood Gas Sample Type Arterial; Carboxyhemoglobin 1.4 %THgb (0.4-20.1); HCO3 ABG 24.5 mmol/L (22-26); HGB O2 Sat 95.7 % (95-100); Ionized Calcium Level - ABG 1.2 mmol/L (1.1-1.4); Methemoglobin 0.2 % (0.4-1.5); Oxygen Saturation ABG 97.2; Potassium Level - ABG 3.4 mmol/L (3.5-5.0); Total Hemoglobin 10.8 g/dL (12-16)
[2024-02-21 16:45] LABS: Blood Gas Operator Identificat MONRO; Blood Gas Sample Site Radial, left; Oxygen Device ROOM AIR; PO2 FiO2 Ratio Arterial Blood 433
[2024-02-21 17:17] LABS: Basophils # 0.1 10^3/uL (0.0-0.1); Basophils % 0.6 %; Eosinophils # 0.1 10^3/uL (0.0-0.8); Eosinophils % 0.6 %; Hematocrit 35.9 % (36-47); Lymphocytes # 2.4 10^3/uL (0.8-4.8); Lymphocytes % 27.4 %; Mean Corpuscular HGB Conc 31.2 g/dL (30-55); Mean Corpuscular Volume 89.8 fl (85-98); Mean Platelet Volume 9.8 fL (7.4-10.4); Monocytes # 0.5 10^3/uL (0.2-0.9); Neutrophils # 5.77 10^3/uL (1.8-7.7); Neutrophils % 65.2 %; Nucleated Red Blood Cells % 0 %; Platelet Count 350 10^3/cmm (157-399); White Blood Count 8.84 10^3/uL (3.29-11.43)
[2024-02-21 17:38] LABS: Lactic Sepsis W/Reflex 2.3 mmol/L (0.5-2.2)
[2024-02-21 17:49] LABS: Alanine Aminotransferase 31 U/L (0-33); Albumin Level 4.3 g/dL (3.5-5.2); Alcohol Level 294 mg/dL (0-10); Alkaline Phosphatase 103 U/L (35-105); Anion Gap 15.4 (5-19); Aspartate Amino Transferase 27 U/L (0-32); Blood Urea Nitrogen 7 mg/dL (6-20); Calcium 9.6 mg/dL (8.5-10.5); Carbon Dioxide 25 mmol/L (22-29); Chloride 111 mmol/L (98-107); Creatinine Clr Calc Pharmacy 85.1427; Globulin 3.2 g/dL (1.3-4.6); Glomerular Filtration Rate 95.8 mL/min (90-130); Glucose 88 mg/dL (65-115); Osmolality Calculated 303 mOsm/kg (285-295); Potassium 3.4 mmol/L (3.5-5.1); Salicylate 0.5 mg/dL (3-10); Sodium 148 mmol/L (136-145); Thyroid Stimulating Hormone 0.26 uIU/mL (0.27-4.20); Total Bilirubin 0.3 mg/dL (0.15-1.2); Total Protein 7.5 g/dL (6.6-8.7)
[2024-02-21 17:50] LABS: Acetaminophen < 5.0 ug/mL (10-30)
[2024-02-21 18:03] LABS: HCG Qualitative Urine. Negative (Negative)
[2024-02-21 18:04] LABS: Bilirubin Urine Negative (Negative); Blood Urine Negative (Negative); Glucose Urine UA Negative (Normal); Ketones Urine Negative (Negative); Leukocyte Esterase Urine Negative (Negative); Nitrate Urine Negative (Negative); Protein Urine Negative (Negative); Specific Gravity, Urine 1.004 (1.005-1.030); Urine Appearance Clear (CLEAR); Urine Color Yellow (Yellow); Urobilinogen Urine 0.2 mg/dL (Negative)
[2024-02-21 18:10] LABS: Bacteria Urine None Seen /hpf; Hyaline Casts Urine 0-4 /lpf; RBC Urine 0-2 /hpf (0-2); Squamous Epithelial Cell Urine 0-5 /hpf (0-5); WBC Urine 0-5 /hpf (0-5)
[2024-02-21 18:11] LABS: Amphetamines Screen Urine Negative (Negative); Barbiturates Screen Urine Negative (Negative); Benzodiazepines Screen Urine Positive (Negative); Cocaine Screen Urine Negative (Negative); Opiate Screen Urine Negative (Negative); PCP Screen Urine Negative (Negative); THC Screen Urine Positive (Negative)
[2024-02-21 18:59] LABS: Reflex Lactate Order REFLEX LACTIC ORDERD
== END 2024-02-21 18:59 | disposition home or self-care (01) ==
PROVIDERS: Emergency Provider Emergency Medicine; PCP Family Medicine
DX: F10.129 Alcohol abuse with intoxication, unspecified (principal); Y90.8 Blood alcohol level of 240 mg/100 ml or more; Z79.01 Long term (current) use of anticoagulants
CPT/HCPCS: 36415; 36600; 70450; 71045; 80051; 80053; 80306; 80307; 81001; 81025; 82330; 82805; 83605; 84443; 85025; 93005; 99285

== ENCOUNTER 2024-03-25 17:59 | Emergency (ER) | payer MEDICAID, SELFPAY ==
[2024-03-25 18:05] VITALS: BP 127/83; PULSE 86; RESP 16; TEMP 36.3; O2SAT 96; BMI 23.2
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
[2024-03-25 18:23] LABS: Basophils # 0.1 10^3/uL (0.0-0.1); Basophils % 0.4 %; Eosinophils # 0.1 10^3/uL (0.0-0.8); Eosinophils % 1.1 %; Lymphocytes # 3.9 10^3/uL (0.8-4.8); Lymphocytes % 33.8 %; Mean Corpuscular Hemoglobin 26.5 pg (27-33); Mean Corpuscular Volume 88.5 fl (85-98); Mean Platelet Volume 9.7 fL (7.4-10.4); Monocytes # 0.9 10^3/uL (0.2-0.9); Monocytes % 7.3 %; Neutrophils # 6.64 10^3/uL (1.8-7.7); Neutrophils % 57.2 %; Nucleated Red Blood Cells % 0 %; Platelet Count 491 10^3/cmm (157-399); Red Blood Count 4.07 10^6/uL (3.85-5.65); Red Cell Distribution Width 16.6 % (12.1-15.1); White Blood Count 11.62 10^3/uL (3.29-11.43)
[2024-03-25 18:30] VITALS: BP 121/78; PULSE 82; RESP 16; O2SAT 100
[2024-03-25 18:43] LABS: Alanine Aminotransferase 118 U/L (0-33); Albumin Level 4.2 g/dL (3.5-5.2); Alkaline Phosphatase 219 U/L (35-105); Anion Gap 17.3 (5-19); Aspartate Amino Transferase 83 U/L (0-32); Blood Urea Nitrogen 10 mg/dL (6-20); Calcium 10.3 mg/dL (8.5-10.5); Carbon Dioxide 23 mmol/L (22-29); Chloride 107 mmol/L (98-107); Creatinine Clr Calc Pharmacy 76.4768; Globulin 3.6 g/dL (1.3-4.6); Glomerular Filtration Rate 82.1 mL/min (90-130); Glucose 84 mg/dL (65-115); Osmolality Calculated 296 mOsm/kg (285-295); Potassium 3.3 mmol/L (3.5-5.1); Sodium 144 mmol/L (136-145); Total Bilirubin 0.2 mg/dL (0.15-1.2); Total Protein 7.8 g/dL (6.6-8.7)
[2024-03-25 18:46] LABS: Alcohol Level 328 mg/dL (0-10)
[2024-03-25 19:04] VITALS: BP 149/98; PULSE 78; RESP 16; O2SAT 98
[2024-03-25] MEDS: ondansetron 2 mg/ML SDV 2 mL 4 MG IVP (19:27)
[2024-03-25 19:30] VITALS: BP 122/81; PULSE 90; RESP 16; O2SAT 100
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
[2024-03-25] MEDS: LORazepam 2 mg/mL INJ 1 mL IVP (20:10)
[2024-03-25 20:12] VITALS: BP 146/87; PULSE 84; RESP 16; O2SAT 100
[2024-03-25 20:28] VITALS: BP 146/87; PULSE 99; RESP 16; O2SAT 100
== END 2024-03-25 20:38 | disposition home or self-care (01) ==
PROVIDERS: Emergency Provider Physician Assistant; PCP Family Medicine
DX: F10.920 Alcohol use, unspecified with intoxication, uncomplicated (principal); Y90.8 Blood alcohol level of 240 mg/100 ml or more; Z79.01 Long term (current) use of anticoagulants
CPT/HCPCS: 36415; 73562; 80053; 80307; 85025; 96374; 96375; 99284; J2060; J2405

== ENCOUNTER 2024-03-25 21:56 | Emergency (ER) | payer MEDICAID, SELFPAY ==
[2024-03-25 21:58] VITALS: BP 110/75; PULSE 89; RESP 18; TEMP 36.5; O2SAT 98; BMI 20.5
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
[2024-03-25 22:47] VITALS: BP 110/75; PULSE 89; O2SAT 98
== END 2024-03-25 22:54 | disposition home or self-care (01) ==
PROVIDERS: Emergency Provider Physician Assistant; PCP Family Medicine
DX: F10.129 Alcohol abuse with intoxication, unspecified (principal); Z79.01 Long term (current) use of anticoagulants
CPT/HCPCS: 99283

== ENCOUNTER 2024-04-02 03:21 | Emergency (ER) | payer MEDICAID, SELFPAY ==
[2024-04-02] VITALS (28 sets, daily range): BP systolic 88–142; BP diastolic 52–101; PULSE 86–107; RESP 16–26; TEMP 36.6; O2SAT 93–100; BMI 23.4
--- NOTE | 2024-04-02 03:36 | PC.NURSE ---
pt is not responsive and unable to answer the SI questions
--- NOTE | 2024-04-02 03:44 | ED_ITS ---
Documented by User: Giulia Torres MD 04/02/24 05:21 HPI - Alcohol 2 General: Chief Complaint: Alcohol Stated Complaint: etoh Time Seen by Provider: 04/02/24 03:26 History of Present Illness: 33-year-old female with a history of alc ohol abuse presents the emergency room with alcohol intoxication. Apparently she was found laying in [address]. Her fianc? was with her and apparently was belligerent to EMS. Police became involved and she was sent to the emergency room. Here she appears quite intoxicated. Related Data Home Medications ?Medication ?Instructions ?Recorded ?Confirmed triamterene 37.5 1 cap PO DAILY 12/21/2203/22 mg-hydrochlorothiazide 25 mg capsule alprazolam 0.25 mg tablet 0.25 mg PO TID PRN Anxiety 0 08/06/23 04/02/24 apixaban 5 mg tablet (Eliquis) 5 mg PO BID 01/22/24 hydrocodone 5 mg-acetaminophen 325 1 tab PO TID 04/02/24 mg tablet ondansetron 4 mg disintegrating 4 mg PO TID 02/21/24 0 04/02/24 tablet topiramate 200 mg tablet 200 mg PO BID 02/21/2404/02 tramadol 50 mg tablet 50 mg PO Q4H 02/21/24 trazodone 150 mg tablet 150 mg PO QPM 02/21/2404/02 Previous Rx's ?Medication ?Instructions ?Recorded leflunomide 20 mg tablet 20 mg PO DAILY #30 tabs 07/21 08/12 Held on 01/24/24. Instructions: Resume on 01/31/24. Hinged Knee Brace #1 ea 08/16/23 gabapentin 300 mg capsule 600 mg (2 x 300 mg) PO QID 3 0 days 12/17/23 #240 caps fluoxetine 40 mg capsule (Prozac) 40 mg PO DAILY #30 c aps 03/14/24 Allergies Allergy/AdvReac Type Severity Reaction Status Date / Time methylprednisolone Allergy Severe ALGY-Anaphy Verified 04/02/24 03:35 laxis Latex, Natural Rubber Allergy Intermediate rash, hives Verified 04/02/24 03:35 amoxicillin Allergy ALGY-Hives Verified 04/02/24 03:35 methotrexate AdvReac Intermediate migraines, Verified 04/02/24 03:35 N/V Review of Systems 2 General: Reports: ROS unobtainable due to mental status PFSH ED 2 PFSH: Medical History Family history of colon cancer Bilateral pulmonary embolism Vapes nicotine containing substance Seizures Hx of migraines Ovarian mass, right Family history of psoriasis in father High risk medication use Inflammatory back pain Inflammatory arthritis Psychiatric care Other correction (current) drug therapy Anxiety Bipolar disorder, unspecified Acute abscess of female pelvis Abnormal uterine bleeding (AUB) Abnormal Papanicolaou smear of cervix with positive human papilloma virus (HPV) test Endometriosis determined by laparoscopy Surgical History History of hysterectomy with unilateral oophorectomy (2019) Hysterectomy with left oophorectomy History of right oophorectomy (06/20/22) History of cholecystectomy (2020) History of laparoscopy 2010-for endometriosis 2015- for Mirena removal 01/17/2017-performed by Dr. Mosher at [facility] History of tubal ligation 12/2015- per Dr. Mosher at [facility] H/O removal of cyst [address] Mosher Family History Mother Stroke Hyperlipidemia Family history of thyroid problem Hypertension Cancer of tongue Father Degenerative disc disease Diabetes Unknown Breast cancer maternal great aunt Grandmother Ovarian cancer maternal Uterine cancer maternal Other Cancer Chronic kidney disease (CKD) Rheumatoid arthritis Denies family history of Lupus Social History Smoking and tobacco/nicotine status: never used tobacco/nicotine Second hand smoke exposure: No Alcohol intake: never Substance/Drug Use: never Physical Exam 2 Narrative: EXAM NARRATIVE: General: Patient is somnolent, appears intoxicated, somewhat agitated. Skin: Warm, dry. Head: Normocephalic, atraumatic. Neck: Supple, trachea midline. Eye: Extraocular movements are intact. Ears, nose, mouth and throat: mucosa moist. Cardiovascular: Regular, Normal peripheral perfusion. Respiratory: Lungs are clear to auscultation, respirations are non-labored, breath sounds are equal, Symmetrical chest wall expansion. Gastrointestinal: Soft, Nontender, Non distended Musculoskeletal: Normal ROM, no deformity. Neurological: Patient appears intoxicated, No focal neurological deficit observed. Psychiatric: Unable to assess Course 2 Vital Signs: Vital signs: Vital Signs Temperature 97.9 F 04/02/24 03:22 Pulse Rate 104 H 04/02/24 12:35 Respiratory Rate 20 H 04/02/24 12:35 Blood Pressure 112/81 04/02/24 12:35 Pulse Oximetry 98 04/02/24 12:35 Oxygen Delivery Me thod Room Air 04/02/24 12:35 MDM - Alcohol Medical Decision Making Patient still quite a bit intoxicated. Once she sobered up some likely can discharge home. She has not stated any suicidal or homicidal ideations. Lab Data 04/02/24 03:45 04/02/24 03:[address] 04/02/24 08:36 IMPRESSION: 1. No evidence of intracranial hemorrhage or mass effect. 2. No acute intracranial findings. Laboratory Results WBC 12.80 10^3/uL (3.29-11.43) H 04/02/24 03:45 RBC 4.39 10^6/uL (3.85-5.65) 04/02/24 03:45 Hgb 11.30 g/dL (11.27-16.99) 04/02/24 03:45 Hct 38.3 % (36-47) 04/02/24 03:45 MCV 87.2 fl (85-98) 04/02/24 03:45 MCH 25.7 pg (27-33) L 04/02/24 03:45 MCHC 29.5 g/dL (30-55) L 04/02/24 03:45 RDW 16.2 % (12.1-15.1) H 04/02/24 03:45 Plt Count 451 10^3/cmm (157-399) H 04/02/24 03:45 MPV 10.1 fL (7.4-10.4) 04/02/24 03:45 Neut % (Auto) 50.7 % 04/02/24 03:45 Lymph % (Auto) 37.5 % 04/02/24 03:45 Yates % (Auto) 9.5 % 04/02/24 03:45 Eos % (Auto) 1.5 % 04/02/24 03:45 Baso % (Auto) 0.6 % 04/02/24 03:45 Neut # (Auto) 6.49 10^3/uL (1.8-7.7) 04/02/24 03:45 Lymph # (Auto) 4.8 10^3/uL (0.8-4.8) 04/02/24 03:45 Yates # (Auto) 1.2 10^3/uL (0.2-0.9) H 04/02/24 03:45 Eos # (Auto) 0.2 10^3/uL (0.0-0.8) 04/02/24 03:45 Baso # (Auto) 0.1 10^3/uL (0.0-0.1) 04/02/24 03:45 Nucleated RBC % (auto) 0 % 04/02/24 03:45 Nucleated RBCs # 0.0 /100WBC 04/02/24 03:45 PT 12.70 SECONDS (12.1-14.9) 04/02/24 08:00 INR 0.89 (0.8-1.2) 04/02/24 08:00 Specimen Type Arterial 04/02/24 10:27 Sample Site Brachial, right 04/02/24 10:27 ABG pH 7.39 (7.35-7.45) 04/02/24 10:27 ABG pCO2 41.7 mmHg (35-45) 04/02/24 10:27 ABG pO2 93.5 mmHg (80.0-100.0) 04/02/24 10:27 ABG PO2/FiO2 Ratio 445 04/02/24 10:27 ABG HCO3 25.2 mmol/L (22-26) 04/02/24 10:27 ABG O2 Saturation 96.8 04/02/24 10:27 ABG Base Excess 0.2 mmol/L (-2.0-2.0) 04/02/24 10:27 Da Test Pos 04/02/24 10:27 A-a O2 Gradient 0.3 mmHg (5-10) L 04/02/24 10:27 Hematocrit 36.2 % (37-47) L 04/02/24 10:27 Hgb O2 Saturation 95.1 % (95-100) 04/02/24 10:27 Carboxyhemoglobin 1.4 %THgb (0.4-20.1) 04/02/24 10:27 Methemoglobin 0.3 % (0.4-1.5) L 04/02/24 10:27 Total Hemoglobin 11.8 g/dL (12-16) L 04/02/24 10:27 Sodium 153.0 mmol/L (131-143) H 04/02/24 10:27 Potassium 3.9 mmol/L (3.5-5.0) 04/02/24 10:27 Glucose 95.0 mg/dL (70-115) 04/02/24 10:27 Ionized Calcium 1.2 mmol/L (1.1-1.4) 04/02/24 10:27 O2 Delivery Device Room air 04/02/24 10:27 FiO2 21.0 % 04/02/24 10:27 Automobile Repossessor ID Monro 04/02/24 10:27 Sodium 142 mmol/L (136-145) 04/02/24 03:45 Potassium 3.2 mmol/L (3.5-5.1) L 04/02/24 03:45 Chloride 105 mmol/L (98-107) 04/02/24 03:45 Carbon Dioxide 22 mmol/L (22-29) 04/02/24 03:45 Anion Gap 18.2 (5-19) 04/02/24 03:45 BUN 14 mg/dL (6-20) 04/02/24 03:45 Creatinine 0.7 mg/dL (0.5-0.9) 04/02/24 03:45 GFR Calculation 95.8 mL/min (90-130) 04/02/24 03:45 Glucose 73 mg/dL (65-115) 04/02/24 03:45 Calculated Osmolality 293 mOsm/kg (285-295) 04/02/24 03:45 Calcium 9.8 mg/dL (8.5-10.5) 04/02/24 03:45 Total Bilirubin 0.2 mg/dL (0.15-1.2) 04/02/24 03:45 AST 192 U/L (0-32) H 04/02/24 03:45 ALT 199 U/L (0-33) H 04/02/24 03:45 Alkaline Phosphatase 175 U/L (35-105) H 04/02/24 03:45 Ammonia 34 umol/L (11-51) 04/02/24 08:00 Total Protein 7.5 g/dL (6.6-8.7) 04/02/24 03:45 Albumin 4.2 g/dL (3.5-5.2) 04/02/24 03:45 Globulin 3.3 g/dL (1.3-4.6) 04/02/24 03:45 HCG, Qual Negative (Negative) 04/02/24 03:36 Urine Color Yellow (Yellow) 04/02/24 03:36 Urine Appearance Clear (CLEAR) 04/02/24 03:36 Urine pH 6.0 (5-7) 04/02/24 03:36 Ur Specific [place] 1.007 (1.005-1.030) 04/02/24 03:36 Urine Protein Negative (Negative) 04/02/24 03:36 Urine Glucose (UA) Negative (Normal) 04/02/24 03:36 Urine Ketones Negative (Negative) 04/02/24 03:36 Urine Blood Negative (Negative) 04/02/24 03:36 Urine Nitrate Positive (Negative) A 04/02/24 03:36 Urine Bilirubin Negative (Negative) 04/02/24 03:36 Urine Urobilinogen 0.2 mg/dL (Negative) 04/02/24 03:36 Ur Leukocyte Esterase Negative (Negative) 04/02/24 03:36 Urine RBC 0-2 /hpf (0-2) 04/02/24 03:36 Urine WBC 0-5 /hpf (0-5) 04/02/24 03:36 Ur Squamous Epith Cells 0-5 /hpf (0-5) 04/02/24 03:36 Amorphous Sediment Not Reportable 04/02/24 03:36 Urine Bacteria 4+ /hpf (NONE) H 04/02/24 03:36 Hyaline Casts 0-4 /lpf H 04/02/24 03:36 Urine Opiates Screen Negative ng/mL (Negative) 04/02/24 03:36 Ur Barbiturates Screen Negative ng/mL (Negative) 04/02/24 03:36 Ur Phencyclidine Scrn Negative ng/mL (Negative) 04/02/24 03:36 Ur Amphetamines Screen Negative ng/mL (Negative) 04/02/24 03:36 U Benzodiazepines Scrn Negative ng/mL (Negative) 04/02/24 03:36 Urine Cocaine Screen Negative ng/mL (Negative) 04/02/24 03:36 U Marijuana (THC) Screen Negative ng/mL (Negative) 04/02/24 03:36 Ethyl Alcohol 432 mg/dL (0-10) H* 04/02/24 03:45 Discharge Plan Discharge Patient Disposition: Home Clinical Impression: Alcohol intoxication Condition: Stable Prescriptions: No Action (DME) Hinged Knee Brace See Rx Instructions .Route .MEDSUPPLY Qty: 1 0RF Rx Instructions: As directed gabapentin 300 mg capsule 600 mg PO QID 30 Days Qty: 240 3RF leflunomide 20 mg tablet 20 mg PO DAILY Qty: 30 3RF fluoxetine [Prozac] 40 mg capsule 40 mg PO DAILY Qty: 30 2RF hydrocodone-acetaminophen 5-325 mg tablet 1 tab PO TID tramadol 50 mg tablet 50 mg PO Q4H trazodone 150 mg tablet 150 mg PO QPM topiramate 200 mg tablet 200 mg PO BID ondansetron 4 mg tablet,disintegrating 4 mg PO TID triamterene-hydrochlorothiazid 37.5-25 mg capsule 1 cap PO DAILY alprazolam 0.25 mg tablet 0.25 mg PO TID PRN (Reason: Anxiety) Eliquis 5 mg tablet 5 mg PO BID Discharge Orders: Discharge ED (Routine); Ordered 04/02/24 Ordered By: Kris Odell Referrals: Joaquin Mak MD [Primary Care Provider] - Discharge Diet: Usual diet Patient Instructions: Abuse of Alcohol (ED), Opioid Safety, Pain Management Activity Restrictions/Additional Instructions: Thank you for choosing [facility] for your healthcare needs today. Please realize this is an emergency room and that we are providing you with a medical screening exam and this may not be complete and all inclusive of all the testing and or work up that you may need to determine your ailment or severity of your illness. You have been screened and evaluated and felt safe for discharge. Health conditions do change or evolve sometimes and as such it is important that you follow up with your Primary Doctor to be re checked, 3-5 days is a general good time frame for follow up. You are always welcome to return to the ED for re assessment if your symptoms are worsening or you have new concerns Do not consume alcohol. Print Language: South African Sign Out Sign Out Data: Patient Sign Out occurred on 04/02/24 at 06:54. Patient's care was discussed, and care was transferred from Giulia Torres MD to Kris Odell DO. Coding Level of Care Code ED Subject Scientific Research for Chg Fwd Documented by User: Kris Odell DO 04/02/24 16:01 HPI - Alcohol 2 General: Chief Complaint: Alcohol Stated Complaint: etoh Time Seen by Provider: 04/02/24 03:26 Related Data Home Medications ?Medication ?Instructions ?Recorded ?Confirmed triamterene 37.5 1 cap PO DAILY 12/21/2203/22 mg-hydrochlorothiazide 25 mg capsule alprazolam 0.25 mg tablet 0.25 mg PO TID PRN Anxiety 0 08/06/23 04/02/24 apixaban 5 mg tablet (Eliquis) 5 mg PO BID 01/22/24 hydrocodone 5 mg-acetaminophen 325 1 tab PO TID 04/02/24 mg tablet ondansetron 4 mg disintegrating 4 mg PO TID 02/21/24 0 04/02/24 tablet topiramate 200 mg tablet 200 mg PO BID 02/21/2404/02 tramadol 50 mg tablet 50 mg PO Q4H 02/21/24 trazodone 150 mg tablet 150 mg PO QPM 02/21/2404/02 Previous Rx's ?Medication ?Instructions ?Recorded leflunomide 20 mg tablet 20 mg PO DAILY #30 tabs 07/21 08/12 Held on 01/24/24. Instructions: Resume on 01/31/24. Hinged Knee Brace #1 ea 08/16/23 gabapentin 300 mg capsule 600 mg (2 x 300 mg) PO QID 3 0 days 12/17/23 #240 caps fluoxetine 40 mg capsule (Prozac) 40 mg PO DAILY #30 c aps 03/14/24 Allergies Allergy/AdvReac Type Severity Reaction Status Date / Time methylprednisolone Allergy Severe ALGY-Anaphy Verified 04/02/24 03:35 laxis Latex, Natural Rubber Allergy Intermediate rash, hives Verified 04/02/24 03:35 amoxicillin Allergy ALGY-Hives Verified 04/02/24 03:35 methotrexate AdvReac Intermediate migraines, Verified 04/02/24 03:35 N/V PFSH ED 2 PFSH: Medical History Family history of colon cancer Bilateral pulmonary embolism Vapes nicotine containing substance Seizures Hx of migraines Ovarian mass, right Family history of psoriasis in father High risk medication use Inflammatory back pain Inflammatory arthritis Psychiatric care Other correction (current) drug therapy Anxiety Bipolar disorder, unspecified Acute abscess of female pelvis Abnormal uterine bleeding (AUB) Abnormal Papanicolaou smear of cervix with positive human papilloma virus (HPV) test Endometriosis determined by laparoscopy Surgical History History of hysterectomy with unilateral oophorectomy (2019) Hysterectomy with left oophorectomy History of right oophorectomy (06/20/22) History of cholecystectomy (2020) History of laparoscopy 2010-for endometriosis 2015- for Mirena removal 01/17/2017-performed by Dr. Mosher at [facility] History of tubal ligation 12/2015- per Dr. Mosher at [facility] H/O removal of cyst [address] Mosher Family History Mother Stroke Hyperlipidemia Family history of thyroid problem Hypertension Cancer of tongue Father Degenerative disc disease Diabetes Unknown Breast cancer maternal great aunt Grandmother Ovarian cancer maternal Uterine cancer maternal Other Cancer Chronic kidney disease (CKD) Rheumatoid arthritis Denies family history of Lupus Social History Smoking and tobacco/nicotine status: never used tobacco/nicotine Second hand smoke exposure: No Alcohol intake: never Substance/Drug Use: never Course 2 Vital Signs: Vital signs: Vital Signs Temperature 97.9 F 04/02/24 03:22 Pulse Rate 104 H 04/02/24 12:35 Respiratory Rate 20 H 04/02/24 12:35 Blood Pressure 112/81 04/02/24 12:35 Pulse Oximetry 98 04/02/24 12:35 Oxygen Delivery Me thod Room Air 04/02/24 12:35 MDM - Alcohol Medical Decision Making Patient still quite a bit intoxicated. Once she sobered up some likely can discharge home. She has not stated any suicidal or homicidal ideations. Care assumed at change of shift patient continues to be poorly responsive. On repeat exam I do not find any head trauma she is found on the side of the road there is no history she cannot give us any history. CT of the head done ABG done no significant findings after monitoring for several more hours patient became awake and alert ambulatory no deficits repeat exam at this time she is completely returned to her baseline she admits to drinking heavily. I encouraged her to stop drinking the character of her answer indicates she has no desire Medical Records I reviewed the patient's medical records. Lab Data I reviewed the patient's lab results. 04/02/24 03:45 04/02/24 03:[address] 04/02/24 08:36 IMPRESSION: 1. No evidence of intracranial hemorrhage or mass effect. 2. No acute intracranial findings. Laboratory Results WBC 12.80 10^3/uL (3.29-11.43) H 04/02/24 03:45 RBC 4.39 10^6/uL (3.85-5.65) 04/02/24 03:45 Hgb 11.30 g/dL (11.27-16.99) 04/02/24 03:45 Hct 38.3 % (36-47) 04/02/24 03:45 MCV 87.2 fl (85-98) 04/02/24 03:45 MCH 25.7 pg (27-33) L 04/02/24 03:45 MCHC 29.5 g/dL (30-55) L 04/02/24 03:45 RDW 16.2 % (12.1-15.1) H 04/02/24 03:45 Plt Count 451 10^3/cmm (157-399) H 04/02/24 03:45 MPV 10.1 fL (7.4-10.4) 04/02/24 03:45 Neut % (Auto) 50.7 % 04/02/24 03:45 Lymph % (Auto) 37.5 % 04/02/24 03:45 Yates % (Auto) 9.5 % 04/02/24 03:45 Eos % (Auto) 1.5 % 04/02/24 03:45 Baso % (Auto) 0.6 % 04/02/24 03:45 Neut # (Auto) 6.49 10^3/uL (1.8-7.7) 04/02/24 03:45 Lymph # (Auto) 4.8 10^3/uL (0.8-4.8) 04/02/24 03:45 Yates # (Auto) 1.2 10^3/uL (0.2-0.9) H 04/02/24 03:45 Eos # (Auto) 0.2 10^3/uL (0.0-0.8) 04/02/24 03:45 Baso # (Auto) 0.1 10^3/uL (0.0-0.1) 04/02/24 03:45 Nucleated RBC % (auto) 0 % 04/02/24 03:45 Nucleated RBCs # 0.0 /100WBC 04/02/24 03:45 PT 12.70 SECONDS (12.1-14.9) 04/02/24 08:00 INR 0.89 (0.8-1.2) 04/02/24 08:00 Specimen Type Arterial 04/02/24 10:27 Sample Site Brachial, right 04/02/24 10:27 ABG pH 7.39 (7.35-7.45) 04/02/24 10:27 ABG pCO2 41.7 mmHg (35-45) 04/02/24 10:27 ABG pO2 93.5 mmHg (80.0-100.0) 04/02/24 10:27 ABG PO2/FiO2 Ratio 445 04/02/24 10:27 ABG HCO3 25.2 mmol/L (22-26) 04/02/24 10:27 ABG O2 Saturation 96.8 04/02/24 10:27 ABG Base Excess 0.2 mmol/L (-2.0-2.0) 04/02/24 10:27 Da Test Pos 04/02/24 10:27 A-a O2 Gradient 0.3 mmHg (5-10) L 04/02/24 10:27 Hematocrit 36.2 % (37-47) L 04/02/24 10:27 Hgb O2 Saturation 95.1 % (95-100) 04/02/24 10:27 Carboxyhemoglobin 1.4 %THgb (0.4-20.1) 04/02/24 10:27 Methemoglobin 0.3 % (0.4-1.5) L 04/02/24 10:27 Total Hemoglobin 11.8 g/dL (12-16) L 04/02/24 10:27 Sodium 153.0 mmol/L (131-143) H 04/02/24 10:27 Potassium 3.9 mmol/L (3.5-5.0) 04/02/24 10:27 Glucose 95.0 mg/dL (70-115) 04/02/24 10:27 Ionized Calcium 1.2 mmol/L (1.1-1.4) 04/02/24 10:27 O2 Delivery Device Room air 04/02/24 10:27 FiO2 21.0 % 04/02/24 10:27 Automobile Repossessor ID Monro 04/02/24 10:27 Sodium 142 mmol/L (136-145) 04/02/24 03:45 Potassium 3.2 mmol/L (3.5-5.1) L 04/02/24 03:45 Chloride 105 mmol/L (98-107) 04/02/24 03:45 Carbon Dioxide 22 mmol/L (22-29) 04/02/24 03:45 Anion Gap 18.2 (5-19) 04/02/24 03:45 BUN 14 mg/dL (6-20) 04/02/24 03:45 Creatinine 0.7 mg/dL (0.5-0.9) 04/02/24 03:45 GFR Calculation 95.8 mL/min (90-130) 04/02/24 03:45 Glucose 73 mg/dL (65-115) 04/02/24 03:45 Calculated Osmolality 293 mOsm/kg (285-295) 04/02/24 03:45 Calcium 9.8 mg/dL (8.5-10.5) 04/02/24 03:45 Total Bilirubin 0.2 mg/dL (0.15-1.2) 04/02/24 03:45 AST 192 U/L (0-32) H 04/02/24 03:45 ALT 199 U/L (0-33) H 04/02/24 03:45 Alkaline Phosphatase 175 U/L (35-105) H 04/02/24 03:45 Ammonia 34 umol/L (11-51) 04/02/24 08:00 Total Protein 7.5 g/dL (6.6-8.7) 04/02/24 03:45 Albumin 4.2 g/dL (3.5-5.2) 04/02/24 03:45 Globulin 3.3 g/dL (1.3-4.6) 04/02/24 03:45 HCG, Qual Negative (Negative) 04/02/24 03:36 Urine Color Yellow (Yellow) 04/02/24 03:36 Urine Appearance Clear (CLEAR) 04/02/24 03:36 Urine pH 6.0 (5-7) 04/02/24 03:36 Ur Specific [place] 1.007 (1.005-1.030) 04/02/24 03:36 Urine Protein Negative (Negative) 04/02/24 03:36 Urine Glucose (UA) Negative (Normal) 04/02/24 03:36 Urine Ketones Negative (Negative) 04/02/24 03:36 Urine Blood Negative (Negative) 04/02/24 03:36 Urine Nitrate Positive (Negative) A 04/02/24 03:36 Urine Bilirubin Negative (Negative) 04/02/24 03:36 Urine Urobilinogen 0.2 mg/dL (Negative) 04/02/24 03:36 Ur Leukocyte Esterase Negative (Negative) 04/02/24 03:36 Urine RBC 0-2 /hpf (0-2) 04/02/24 03:36 Urine WBC 0-5 /hpf (0-5) 04/02/24 03:36 Ur Squamous Epith Cells 0-5 /hpf (0-5) 04/02/24 03:36 Amorphous Sediment Not Reportable 04/02/24 03:36 Urine Bacteria 4+ /hpf (NONE) H 04/02/24 03:36 Hyaline Casts 0-4 /lpf H 04/02/24 03:36 Urine Opiates Screen Negative ng/mL (Negative) 04/02/24 03:36 Ur Barbiturates Screen Negative ng/mL (Negative) 04/02/24 03:36 Ur Phencyclidine Scrn Negative ng/mL (Negative) 04/02/24 03:36 Ur Amphetamines Screen Negative ng/mL (Negative) 04/02/24 03:36 U Benzodiazepines Scrn Negative ng/mL (Negative) 04/02/24 03:36 Urine Cocaine Screen Negative ng/mL (Negative) 04/02/24 03:36 U Marijuana (THC) Screen Negative ng/mL (Negative) 04/02/24 03:36 Ethyl Alcohol 432 mg/dL (0-10) H* 04/02/24 03:45 All radiology interpretation(s) finalized by discharge Discharge Plan Discharge Patient Disposition: Home Clinical Impression: Alcohol intoxication Condition: Stable Prescriptions: No Action (DME) Hinged Knee Brace See Rx Instructions .Route .MEDSUPPLY Qty: 1 0RF Rx Instructions: As directed gabapentin 300 mg capsule 600 mg PO QID 30 Days Qty: 240 3RF leflunomide 20 mg tablet 20 mg PO DAILY Qty: 30 3RF fluoxetine [Prozac] 40 mg capsule 40 mg PO DAILY Qty: 30 2RF hydrocodone-acetaminophen 5-325 mg tablet 1 tab PO TID tramadol 50 mg tablet 50 mg PO Q4H trazodone 150 mg tablet 150 mg PO QPM topiramate 200 mg tablet 200 mg PO BID ondansetron 4 mg tablet,disintegrating 4 mg PO TID triamterene-hydrochlorothiazid 37.5-25 mg capsule 1 cap PO DAILY alprazolam 0.25 mg tablet 0.25 mg PO TID PRN (Reason: Anxiety) Eliquis 5 mg tablet 5 mg PO BID Discharge Orders: Discharge ED (Routine); Ordered 04/02/24 Ordered By: Kris Odell Referrals: Joaquin Mak MD [Primary Care Provider] - Discharge Diet: Usual diet Patient Instructions: Abuse of Alcohol (ED), Opioid Safety, Pain Management Activity Restrictions/Additional Instructions: Thank you for choosing [facility] for your healthcare needs today. Please realize this is an emergency room and that we are providing you with a medical screening exam and this may not be complete and all inclusive of all the testing and or work up that you may need to determine your ailment or severity of your illness. You have been screened and evaluated and felt safe for discharge. Health conditions do change or evolve sometimes and as such it is important that you follow up with your Primary Doctor to be re checked, 3-5 days is a general good time frame for follow up. You are always welcome to return to the ED for re assessment if your symptoms are worsening or you have new concerns Do not consume alcohol. Print Language: South African Sign Out Sign Out Data: Patient Sign Out occurred on 04/02/24 at 06:54. Patient's care was discussed, and care was transferred from Giulia Torres MD to Kris Odell DO. Coding Level of Care Code ED Subject Scientific Research for Mark Berg
[2024-04-02 03:50] LABS: Basophils # 0.1 10^3/uL (0.0-0.1); Basophils % 0.6 %; Eosinophils # 0.2 10^3/uL (0.0-0.8); Eosinophils % 1.5 %; Hematocrit 38.3 % (36-47); Lymphocytes # 4.8 10^3/uL (0.8-4.8); Lymphocytes % 37.5 %; Mean Corpuscular HGB Conc 29.5 g/dL (30-55); Mean Corpuscular Hemoglobin 25.7 pg (27-33); Mean Corpuscular Volume 87.2 fl (85-98); Mean Platelet Volume 10.1 fL (7.4-10.4); Monocytes # 1.2 10^3/uL (0.2-0.9); Monocytes % 9.5 %; Neutrophils # 6.49 10^3/uL (1.8-7.7); Neutrophils % 50.7 %; Nucleated Red Blood Cells % 0 %; Platelet Count 451 10^3/cmm (157-399); Red Blood Count 4.39 10^6/uL (3.85-5.65); Red Cell Distribution Width 16.2 % (12.1-15.1)
[2024-04-02 03:59] LABS: Bilirubin Urine Negative (Negative); Blood Urine Negative (Negative); Glucose Urine UA Negative (Normal); HCG Qualitative Urine. Negative (Negative); Ketones Urine Negative (Negative); Leukocyte Esterase Urine Negative (Negative); Nitrate Urine Positive (Negative); Protein Urine Negative (Negative); Specific Gravity, Urine 1.007 (1.005-1.030); Urine Appearance Clear (CLEAR); Urine Color Yellow (Yellow); Urobilinogen Urine 0.2 mg/dL (Negative)
[2024-04-02 04:04] LABS: Bacteria Urine 4+ /hpf; Hyaline Casts Urine 0-4 /lpf; RBC Urine 0-2 /hpf (0-2); Squamous Epithelial Cell Urine 0-5 /hpf (0-5); WBC Urine 0-5 /hpf (0-5)
[2024-04-02 04:14] LABS: Slide Review Slide Review Perform
[2024-04-02 04:20] LABS: Alanine Aminotransferase 199 U/L (0-33); Albumin Level 4.2 g/dL (3.5-5.2); Alcohol Level 432 mg/dL (0-10); Alkaline Phosphatase 175 U/L (35-105); Anion Gap 18.2 (5-19); Aspartate Amino Transferase 192 U/L (0-32); Blood Urea Nitrogen 14 mg/dL (6-20); Calcium 9.8 mg/dL (8.5-10.5); Carbon Dioxide 22 mmol/L (22-29); Chloride 105 mmol/L (98-107); Creatinine Clr Calc Pharmacy 87.7267; Globulin 3.3 g/dL (1.3-4.6); Glomerular Filtration Rate 95.8 mL/min (90-130); Glucose 73 mg/dL (65-115); Osmolality Calculated 293 mOsm/kg (285-295); Potassium 3.2 mmol/L (3.5-5.1); Sodium 142 mmol/L (136-145); Total Bilirubin 0.2 mg/dL (0.15-1.2); Total Protein 7.5 g/dL (6.6-8.7)
[2024-04-02 04:43] LABS: Amphetamines Screen Urine Negative (Negative); Barbiturates Screen Urine Negative (Negative); Benzodiazepines Screen Urine Negative (Negative); Cocaine Screen Urine Negative (Negative); Opiate Screen Urine Negative (Negative); PCP Screen Urine Negative (Negative); THC Screen Urine Negative (Negative)
[2024-04-02 04:50] LABS: Add Urine Culture? Yes
[2024-04-02] MEDS: cefTRIAXone 1,000 mg SDV 1000 MG IVP (06:02)
[2024-04-02 08:17] LABS: INR 0.89 (0.8-1.2)
[2024-04-02 08:23] LABS: Ammonia 34 umol/L (11-51)
--- NOTE | 2024-04-02 08:36 | CT_ITS ---
WS: [id number] CT HEAD TECHNIQUE: Noncontrast CT of the head obtained from the skullbase to the vertex. CLINICAL INFORMATION: Altered mental status COMPARISON: CT 02/21/2024 DLP: 972.[address] scans at [facility] use at least one of these dose optimization techniques: automated exposure control; mA and/or kV adjustment per patient size (includes targeted exams where dose is matched to clinical indication); or iterative reconstruction. FINDINGS: No evidence of intracranial hemorrhage or mass effect. Ventricular system and basal cisterns are patent. No extra-axial fluid collections. No evidence of mass or mass effect. Normal may-white differentiation. Paranasal sinuses and mastoid air cells are well aerated. .Normal visualized soft tissues. CT/CT head wo con* [id number] IMPRESSION: 1. No evidence of intracranial hemorrhage or mass effect. 2. No acute intracranial findings.
[2024-04-02 10:40] LABS: ABG PCO2 41.7 mmHg (35-45); ABG PH Result 7.39 (7.35-7.45); Alveolar-Arterial Oxygen Gradi 0.3 mmHg (5-10); Arterial Blood Gas Hematocrit 36.2 % (37-47); Base Excess ABG 0.2 mmol/L (-2.0-2.0); Blood Gas Allen Test Pos; Blood Gas Operator Identificat MONRO; Blood Gas Sample Site Brachial, right; Blood Gas Sample Type Arterial; Carboxyhemoglobin 1.4 %THgb (0.4-20.1); HCO3 ABG 25.2 mmol/L (22-26); HGB O2 Sat 95.1 % (95-100); Ionized Calcium Level - ABG 1.2 mmol/L (1.1-1.4); Methemoglobin 0.3 % (0.4-1.5); Oxygen Device ROOM AIR; Oxygen Saturation ABG 96.8; PO2 ABG 93.5 mmHg (80.0-100.0); PO2 FiO2 Ratio Arterial Blood 445; Potassium Level - ABG 3.9 mmol/L (3.5-5.0); Total Hemoglobin 11.8 g/dL (12-16)
== END 2024-04-02 13:15 | disposition home or self-care (01) ==
PROVIDERS: Emergency Medicine; Emergency Provider Family Medicine; PCP Family Medicine
DX: F10.129 Alcohol abuse with intoxication, unspecified (principal); Y90.7 Blood alcohol level of 200-239 mg/100 ml; Z79.01 Long term (current) use of anticoagulants
CPT/HCPCS: 36415; 36600; 70450; 80051; 80053; 80306; 80307; 81001; 81025; 82140; 82330; 82805; 85025; 85610; 87086; 96374; 99285; J0696

== ENCOUNTER 2024-05-02 21:41 | Emergency (ER) | payer MEDICAID, SELFPAY ==
[2024-05-02 21:47] VITALS: BP 116/74; PULSE 88; RESP 16; TEMP 36.8; O2SAT 100; BMI 27.3
--- NOTE | 2024-05-02 22:08 | ED_ITS ---
HPI - Seizure General: Chief Complaint: Seizure Stated Complaint: possible seizure Time Seen by Provider: 05/02/24 22:03 History of Present Illness: HPI Narrative: This patient is a 33-year-old white female who presents to the emergency department after being brought in by EMS. Evidently her grandmother called EMS due to seizure-like activity. Upon arrival patient was extremely anxious. Nursing staff states patient was forcibly wheezing. Patient also was pretending to be unresponsive but woke up immediately with painful stimulation. Upon my exam patient sitting up in the bed took all of her equipment off and wants to go home. Evidently patient presents frequently with similar symptoms according to nursing staff here. Patient is not homicidal or suicidal. Seizure History: Yes Related Data Home Medications ?Medication ?Instructions ?Recorded ?Confirmed triamterene 37.5 1 cap PO DAILY 12/21/2203/23 mg-hydrochlorothiazide 25 mg capsule alprazolam 0.25 mg tablet 0.25 mg PO TID PRN Anxiety 0 08/06/23 04/18/24 apixaban 5 mg tablet (Eliquis) 5 mg PO BID 01/22/24 hydrocodone 5 mg-acetaminophen 325 1 tab PO TID 04/18/24 mg tablet ondansetron 4 mg disintegrating 4 mg PO TID 02/21/24 0 04/18/24 tablet topiramate 200 mg tablet 200 mg PO BID 02/21/2404/18 tramadol 50 mg tablet 50 mg PO Q4H 02/21/24 trazodone 150 mg tablet 150 mg PO QPM 02/21/2404/18 Previous Rx's ?Medication ?Instructions ?Recorded leflunomide 20 mg tablet 20 mg PO DAILY #30 tabs 07/21 08/12 Held on 01/24/24. Instructions: Resume on 01/31/24. Hinged Knee Brace #1 ea 08/16/23 fluoxetine 40 mg capsule (Prozac) 40 mg PO DAILY #30 c aps 03/14/24 gabapentin 300 mg capsule 600 mg (2 x 300 mg) PO QID 3 0 days 04/14/24 #240 caps Allergies Allergy/AdvReac Type Severity Reaction Status Date / Time methylprednisolone Allergy Severe ALGY-Anaphy Verified 04/18/24 14:56 laxis Latex, Natural Rubber Allergy Intermediate rash, hives Verified 04/18/24 14:56 amoxicillin Allergy ALGY-Hives Verified 04/18/24 14:56 methotrexate AdvReac Intermediate migraines, Verified 04/18/24 14:56 N/V Review of Systems General: Reports: 10 or more systems reviewed and unremarkable except in HPI and below Psych: Reports: anxiety PFSH ED PFSH: Medical History (Updated 05/02/24 @ 22:07 by Chris Sanford MD) Bipolar disorder, unspecified Family history of colon cancer Bilateral pulmonary embolism Vapes nicotine containing substance Seizures Hx of migraines Ovarian mass, right Family history of psoriasis in father High risk medication use Inflammatory back pain Inflammatory arthritis Psychiatric care Other intermodal customer service (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 Mosher at [facility] History of tubal ligation 12/2015- per Dr. Mosher at [facility] H/O removal of cyst [address] Mosher Family History Mother Stroke Hyperlipidemia Family history of thyroid problem Hypertension Cancer of tongue Father Degenerative disc disease Diabetes Unknown Breast cancer maternal great aunt Grandmother Ovarian cancer maternal Uterine cancer maternal Other Cancer Chronic kidney disease (CKD) Rheumatoid arthritis Denies family history of Lupus Social History Smoking and tobacco/nicotine status: never used tobacco/nicotine Second hand smoke exposure: No Alcohol intake: never Substance/Drug Use: never Physical Exam Const: COMMON NORMALS: no acute distress, patient oriented x3 and no limitatio ns GENERAL APPEARANCE: cooperative and comfortable HENMT: COMMON NORMALS: normocephalic, atraumatic, Normal nasal mucous membranes and turbinates present, moist oral mucous membranes and oropharynx normal HEAD & SCALP: normal to inspection, normocephalic and atraumatic FACE & SINUS: normal facial exam NOSE: Normal nasal mucous membranes and turbinates present Eye: COMMON NORMALS: Equal, round and reactive pupils present, EOMs intact bilaterally and conjunctivae normal GENERAL EYE: appearance normal, both eyes and all related structures CONJUNCTIVA: Yes conjunctivae normal PUPIL: Yes Equal, round and reactive pupils present Neck/C-Spine: COMMON NORMALS: supple and no JVD Chest: COMMONS NORMALS: normal inspection of the chest Resp: COMMON NORMALS: normal respiratory effort and clear to auscultation bilaterally AUSCULTATION: clear to auscultation bilaterally Cardio: COMMON NORMALS: no JVD, regular rate, regular rhythm, No gallops present (Cardio), No murmurs present (Cardio) and No rub (Cardio) RATE: regular rate RHYTHM: regular rhythm GI: COMMON NORMALS: Normal to inspection, nondistended, normoactive bowel sounds present, Soft to palpation and non-tender AUSCULTATION: Yes normoactive bowel sounds PALPATION: Yes Soft to palpation : COMMON NORMALS: Yes no CVA tenderness BLADDER/KIDNEY EXAM: Yes no CVA tenderness Back/Pelvis: COMMON NORMALS: no CVA tenderness and thoracic and lumbar spine normal to inspection Extremity: COMMON NORMALS: normal to inspection Neuro: COMMON NORMALS: patient oriented x3 and CN's II-XII intact bilaterally Psych: COMMON NORMALS: mental status grossly normal, Normal thought process present and cooperative THOUGHT PROCESS: Normal thought process present Skin: COMMON NORMALS: no rashes or lesions noted, turgor normal and no jaundice GENERAL SKIN EXAM: no rashes or lesions noted and turgor normal Course Vital Signs: Vital signs: Vital Signs Temperature 98.3 F 05/02/24 21:47 Pulse Rate 88 05/02/24 21:47 Respiratory Rate 16 05/02/24 21:47 Blood Pressure 116/74 05/02/24 21:47 Pulse Oximetry 100 05/02/24 21:47 Oxygen Delivery Me thod Room Air 05/02/24 21:47 MDM - Seizure No radiology studies performed this visit ED provider radiology interpretation(s): Patient discharged in stable condition. Recommended she follow-up with her primary care physician and/or psychiatrist for ongoing management of her anxiety. Discharge Plan Discharge Patient Disposition: Home Clinical Impression: Anxiety Condition: Stable Prescriptions: No Action (DME) Hinged Knee Brace See Rx Instructions .Route .MEDSUPPLY Qty: 1 0RF Rx Instructions: As directed leflunomide 20 mg tablet 20 mg PO DAILY Qty: 30 3RF fluoxetine [Prozac] 40 mg capsule 40 mg PO DAILY Qty: 30 2RF gabapentin 300 mg capsule 600 mg PO QID 30 Days Qty: 240 3RF hydrocodone-acetaminophen 5-325 mg tablet 1 tab PO TID tramadol 50 mg tablet 50 mg PO Q4H trazodone 150 mg tablet 150 mg PO QPM topiramate 200 mg tablet 200 mg PO BID ondansetron 4 mg tablet,disintegrating 4 mg PO TID triamterene-hydrochlorothiazid 37.5-25 mg capsule 1 cap PO DAILY alprazolam 0.25 mg tablet 0.25 mg PO TID PRN (Reason: Anxiety) Eliquis 5 mg tablet 5 mg PO BID Discharge Orders: Discharge ED (Routine); Ordered 05/02/24 Ordered By: Chris Sanford Referrals: Joqauin Mak MD [Primary Care Provider] - Patient Instructions: Anxiety (ED) Activity Restrictions/Additional Instructions: Follow-up with your primary care provider and/or psychiatrist for ongoing management. Print Language: Spanish Coding Level of Care Code ED Chairman for Mark Berg
--- NOTE | 2024-05-02 22:12 | PC.NURSE ---
PATIENT STATED TO NURSE AND PROVIDER SHE WANTED TO BE DISCHARGED.
== END 2024-05-02 22:12 | disposition home or self-care (01) ==
PROVIDERS: Emergency Provider Emergency Medicine; PCP Family Medicine
DX: F41.9 Anxiety disorder, unspecified (principal); Z79.01 Long term (current) use of anticoagulants
CPT/HCPCS: 99283

== ENCOUNTER 2024-06-07 16:47 | Emergency (ER) | payer MEDICAID, SELFPAY ==
[2024-06-07 17:31] VITALS: BP 143/96; PULSE 82; RESP 18; TEMP 36.6; O2SAT 99; BMI 22.0
--- NOTE | 2024-06-07 18:01 | CTR_ITS ---
PROCEDURE INFORMATION: Exam: CT Abdomen And Pelvis With Contrast Exam date and time: 06/07/2024 6:13 PM Age: 33 years old Clinical indication: Abdominal pain; Localized; Right lower quadrant (rlq); Prior surgery; Surgery date: 6+ months; Surgery type: Gb. Hysterectomy; Rlq pain with fever; Additional info: Rlq pain, fever, dysuria, bilat flank pain TECHNIQUE: Imaging protocol: Computed tomography of the abdomen and pelvis with contrast. Radiation optimization: All CT scans at this facility use at least one of these dose optimization techniques: automated exposure control; mA and/or kV adjustment per patient size (includes targeted exams where dose is matched to clinical indication); or iterative reconstruction. Contrast material: OMNI 350; Contrast volume: 80 ml; Contrast route: INTRAVENOUS (IV); COMPARISON: CT abdomen pelvis w con* [id number] 01/21/2024 7:17 PM RADIATION DOSE METRICS: Total DLP (mGy-cm): 320.02 FINDINGS: Lungs: The lung bases are clear. Liver: Normal. No mass. Gallbladder and biliary ducts: Status post cholecystectomy. Pancreas: Normal. No ductal dilation. Spleen: Normal. No splenomegaly. Adrenal glands: Normal. No mass. Kidneys and ureters: Minimal right hydroureteronephrosis without definitive evidence of obstructing right ureteral calculus. The kidneys enhance equally bilaterally. Previously demonstrated striated nephrogram in the right kidney is not well visualized. There is mild urothelial enhancement of the proximal right ureter. No evidence of nephrolithiasis. Stomach and bowel: Unremarkable. No obstruction. No mucosal thickening. Appendix: The appendix is partially air-filled and unremarkable () Intraperitoneal space: No intraperitoneal free air or fluid. Vasculature: Unremarkable. No abdominal aortic aneurysm. Lymph nodes: Unremarkable. No enlarged lymph nodes. Urinary bladder: Unremarkable as visualized. Reproductive: 3.1 cm left adnexal cyst. Status post hysterectomy. Bones/joints: Unremarkable. No acute fracture. Soft tissues: Unremarkable. CT/CT abdomen pelvis w con* [id number] IMPRESSION: 1. There is mild right-sided hydroureteronephrosis without definitive evidence of obstructing ureteral calculus. There is mild right urothelial enhancement. No definitive evidence of right pyelonephritis. Findings may be related to sequela of recently passed ureteral calculus. Superimposed ureteritis is not excluded. Recommend clinical and laboratory correlation. 2. 3.1 cm left adnexal cyst. 3. The appendix is partially air-filled and unremarkable.
--- NOTE | 2024-06-07 18:02 | W.ED.BACK ---
HPI - Back Pain/Injury General: Chief Complaint: Back Pain/Injury Stated Complaint: lower back pain Time Seen by Provider: 06/07/24 17:20 Source: patient Mode of arrival: ambulatory Limitations: no limitations History of Present Illness: Patient is a 33-year-old female that presents to the emergency department with complaints of fever, nausea vomiting and low back pain. She states she has had a kidney infection in the past and states it feels similar. She does report burning with urination as well. She states that she has had her gallbladder out and had a hysterectomy but still has her appendix. She does report some diffuse abdominal pain and cramping. She has a history of pulmonary embolism and takes Eliquis for this. She states this has been going on for about 4 days and she presents to the emergency department for further evaluation and treatment. Associated symptoms: Reports abdominal pain, chills, dysuria, fever(s), nausea and vomiting Related Data Home Medications ?Medication ?Instructions ?Recorded ?Confirmed triamterene 37.5 1 cap PO DAILY 12/21/22 05/16/24 mg-hydrochlorothiazide 25 mg capsule alprazolam 0.25 mg tablet 0.25 mg PO TID PRN Anxiety 08/06/23 05/16/24 apixaban 5 mg tablet (Eliquis) 5 mg PO BID 01/22/24 05/16/24 hydrocodone 5 mg-acetaminophen 325 1 tab PO TID 02/21/24 05/16/24 mg tablet ondansetron 4 mg disintegrating 4 mg PO TID 02/21/24 05/16/24 tablet topiramate 200 mg tablet 200 mg PO BID 02/21/24 05/16/24 tramadol 50 mg tablet 50 mg PO Q4H 02/21/24 05/16/24 Previous Rx's ?Medication ?Instructions ?Recorded leflunomide 20 mg tablet 20 mg PO DAILY #30 tabs 08/15/23 Held on 01/24/24. Instructions: Resume on 01/31/24. Hinged Knee Brace #1 ea 08/16/23 gabapentin 300 mg capsule 600 mg (2 x 300 mg) PO QID 30 days 04/14/24 #240 caps trazodone 150 mg tablet 150 mg PO QPM #30 tabs 05/16/24 fluoxetine 40 mg capsule (Prozac) 40 mg PO DAILY #30 caps 05/29/24 lidocaine 5 % topical patch 1 patch topical DAILY #15 ea 06/07/24 (Lidoderm) methocarbamol 750 mg tablet 1,500 mg (2 x 750 mg) PO TID PRN 06/07/24 muscle pain #30 tabs promethazine 25 mg tablet 12.5 - 25 mg (0.5 - 1 x 25 mg) PO 06/07/24 Q6H PRN nausea and vomiting #10 tabs Allergies Allergy/AdvReac Type Severity Reaction Status Date / Time methylprednisolone Allergy Severe ALGY-Anaphy Verified 04/18/24 14:56 laxis Latex, Natural Rubber Allergy Intermediate rash, hives Verified 04/18/24 14:56 amoxicillin Allergy ALGY-Hives Verified 04/18/24 14:56 methotrexate AdvReac Intermediate migraines, Verified 04/18/24 14:56 N/V Review of Systems Const: Reports: fever(s) and chills Eyes: Denies: eye discharge or eye redness ENMT: Denies: throat pain, odynophagia, nasal congestion or post nasal drip Card: Denies: chest pain, palpitations or edema Resp: Denies: dyspnea, productive cough, non-productive cough or wheezing GI: Reports: abdominal pain, nausea and vomiting; Denies: diarrhea : Reports: flank pain (Bilateral) and dysuria Musc: Reports: back pain (Bilateral low back pain); Denies: neck pain, extremity pain or extremity swelling Skin/Breast: Denies: rash, pruritus or erythema Neuro: Denies: headache(s) Psych: Reports: anxiety (Chronic, unchanged, patient takes alprazolam for this) Endo: Denies: polyuria or polydipsia Damien/Lymph: Denies: petechiae All/Imm: Denies: urticaria, throat swelling or acute wheezing PFSH ED PFSH: Medical History Bipolar disorder, unspecified Family history of colon cancer Bilateral pulmonary embolism Vapes nicotine containing substance Seizures Hx of migraines Ovarian mass, right Family history of psoriasis in father High risk medication use Inflammatory back pain Inflammatory arthritis Psychiatric care 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 Mosher at [facility] History of tubal ligation 12/2015- per Dr. Mosher at [facility] H/O removal of cyst [address] Mosher Family History Mother Stroke Hyperlipidemia Family history of thyroid problem Hypertension Cancer of tongue Father Degenerative disc disease Diabetes Unknown Breast cancer maternal great aunt Grandmother Ovarian cancer maternal Uterine cancer maternal Other Cancer Chronic kidney disease (CKD) Rheumatoid arthritis Denies family history of Lupus Social History (Updated 06/07/24 @ 18:07 by ENOCH Akins) Smoking and tobacco/nicotine status: current every day tobacco/nicotine user e-cigarettes Second hand smoke exposure: No Alcohol intake: never Substance/Drug Use: never Physical Exam Const: COMMON NORMALS: patient oriented x3, no limitations and alert GENERAL APPEARANCE: cooperative HENMT: COMMON NORMALS: normocephalic, atraumatic, TM's normal bilaterally and Normal external nose present HEAD & SCALP: normocephalic and atraumatic NOSE: Normal external nose present TYMPANIC MEMBRANE: TM's normal bilaterally MOUTH: other (Mucous membranes appear dry/sticky); no drooling THROAT: posterior oropharynx normal Eye: COMMON NORMALS: conjunctivae normal CONJUNCTIVA: Yes conjunctivae normal Neck/C-Spine: COMMON NORMALS: full ROM and no lymphadenopathy Resp: COMMON NORMALS: normal respiratory effort and clear to auscultation bilaterally EFFORT & INSPECTION: Yes able to speak in complete sentences AUSCULTATION: clear to auscultation bilaterally, no crackles, no rales, no rhonchi and no wheezes Cardio: COMMON NORMALS: regular rate and regular rhythm RATE: regular rate RHYTHM: regular rhythm GI: COMMON NORMALS: Soft to palpation AUSCULTATION: Yes normoactive bowel sounds PALPATION: Yes Soft to palpation, Yes Tenderness to palpation present (GI) (Patient does have diffuse abdominal tenderness that is worse on the right) Details: other (Diffuse tenderness no guarding rebound tenderness.), No Abdominal wall crepitus present and No Rebound tenderness present : COMMON NORMALS: Yes no CVA tenderness BLADDER/KIDNEY EXAM: Yes no CVA tenderness Back/Pelvis: COMMON NORMALS: no CVA tenderness LUMBAR SPINE/LOWER BACK: Yes paraspinal muscle tenderness Lumbar paraspinal muscle tenderness: bilateral Extremity: COMMON NORMALS: normal to inspection, full ROM, no calf tenderness and no pedal edema Neuro: COMMON NORMALS: patient oriented x3 SENSORIUM/ORIENTATION: Yes alert Psych: COMMON NORMALS: cooperative and speech normal APPEARANCE: Yes grossly normal ATTITUDE: Yes calm SPEECH: Yes normal speech Skin: COMMON NORMALS: no rashes or lesions noted GENERAL SKIN EXAM: no rashes or lesions noted Course ED course: I discussed the case with Dr. Ambrosio who reviewed the labs and the imaging findings. The patient does have transaminitis. He recommended stopping any medications that have Tylenol in it, using Lidoderm patch for the back pain, Phenergan for the vomiting and nausea and Robaxin to help with the muscle spasms. Vital Signs: Vital signs: Vital Signs Temperature 97.8 F 06/07/24 17:31 Pulse Rate 82 06/07/24 17:31 Respiratory Rate 18 06/07/24 17:31 Blood Pressure 143/96 06/07/24 17:31 Pulse Oximetry 99 06/07/24 17:31 Oxygen Delivery Me thod Room Air 06/07/24 17:31 MDM - Back Pain/Injury Medical Decision Making Patient was advised of the exam, lab and imaging findings. She does not have an elevated white blood cell count and is afebrile here in the emergency department. She states she has been fighting a fever off and on for the last few days. She does not have any sign of urinary tract infection or pyelonephritis although she did have some swelling of the ureter on exam. The UA does not show any signs of major infection. Patient also had mildly elevated creatinine today and was hydrated with LR. Patient was advised to use the medications as directed and follow-up with her primary care provider for further evaluation and treatment. She was instructed to return to the emergency department with any worsening symptoms. The patient expressed understanding. Medical Records I reviewed the patient's medical records. Labs I reviewed the patient's lab results. 06/07/24 18:08 06/07/24 18:08 Radiology Impressions Abdomen/Pelvis CT 06/07/24 18:01 IMPRESSION: 1. There is mild right-sided hydroureteronephrosis without definitive evidence of obstructing ureteral calculus. There is mild right urothelial enhancement. No definitive evidence of right pyelonephritis. Findings may be related to sequela of recently passed ureteral calculus. Superimposed ureteritis is not excluded. Recommend clinical and laboratory correlation. 2. 3.1 cm left adnexal cyst. 3. The appendix is partially air-filled and unremarkable. Laboratory Results WBC 5.00 10^3/uL (3.29-11.43) 06/07/24 18:08 RBC 4.54 10^6/uL (3.85-5.65) 06/07/24 18:08 Hgb 11.40 g/dL (11.27-16.99) 06/07/24 18:08 Hct 37.5 % (36-47) 06/07/24 18:08 MCV 82.6 fl (85-98) L 06/07/24 18:08 MCH 25.1 pg (27-33) L 06/07/24 18:08 MCHC 30.4 g/dL (30-55) 06/07/24 18:08 RDW 18.0 % (12.1-15.1) H 06/07/24 18:08 Plt Count 350 10^3/cmm (157-399) 06/07/24 18:08 MPV 10.1 fL (7.4-10.4) 06/07/24 18:08 Neut % (Auto) 52.4 % 06/07/24 18:08 Lymph % (Auto) 39.2 % 06/07/24 18:08 [place] % (Auto) 6.0 % 06/07/24 18:08 Eos % (Auto) 1.2 % 06/07/24 18:08 Baso % (Auto) 1.0 % 06/07/24 18:08 Neut # (Auto) 2.62 10^3/uL (1.8-7.7) 06/07/24 18:08 Lymph # (Auto) 2.0 10^3/uL (0.8-4.8) 06/07/24 18:08 [place] # (Auto) 0.3 10^3/uL (0.2-0.9) 06/07/24 18:08 Eos # (Auto) 0.1 10^3/uL (0.0-0.8) 06/07/24 18:08 Baso # (Auto) 0.1 10^3/uL (0.0-0.1) 06/07/24 18:08 Nucleated RBC % (auto) 0 % 06/07/24 18:08 Nucleated RBCs # 0.0 /100WBC 06/07/24 18:08 Sodium 137 mmol/L (136-145) 06/07/24 18:08 Potassium 4.1 mmol/L (3.5-5.1) 06/07/24 18:08 Chloride 108 mmol/L (98-107) H 06/07/24 18:08 Carbon Dioxide 15 mmol/L (22-29) L 06/07/24 18:08 Anion Gap 18.1 (5-19) 06/07/24 18:08 BUN 8 mg/dL (6-20) 06/07/24 18:08 Creatinine 1.1 mg/dL (0.5-0.9) H 06/07/24 18:08 GFR Calculation 56.9 mL/min (90-130) L 06/07/24 18:08 Glucose 83 mg/dL (65-115) 06/07/24 18:08 Calculated Osmolality 281 mOsm/kg (285-295) L 06/07/24 18:08 Calcium 8.7 mg/dL (8.5-10.5) 06/07/24 18:08 Total Bilirubin 0.8 mg/dL (0.15-1.2) 06/07/24 18:08 AST 280 U/L (0-32) H 06/07/24 18:08 ALT 312 U/L (0-33) H 06/07/24 18:08 Alkaline Phosphatase 174 U/L (35-105) H 06/07/24 18:08 Total Protein 7.1 g/dL (6.6-8.7) 06/07/24 18:08 Albumin 4.2 g/dL (3.5-5.2) 06/07/24 18:08 Globulin 2.9 g/dL (1.3-4.6) 06/07/24 18:08 Lipase 20 U/L (13-60) 06/07/24 18:08 Urine Color Yellow (Yellow) 06/07/24 18:24 Urine Appearance Clear (CLEAR) 06/07/24 18:24 Urine pH 7.0 (5-7) 06/07/24 18:24 Ur Specific [place] 1.016 (1.005-1.030) 06/07/24 18:24 Urine Protein Negative (Negative) 06/07/24 18:24 Urine Glucose (UA) Negative (Normal) 06/07/24 18:24 Urine Ketones Negative (Negative) 06/07/24 18:24 Urine Blood Negative (Negative) 06/07/24 18:24 Urine Nitrate Negative (Negative) 06/07/24 18:24 Urine Bilirubin Negative (Negative) 06/07/24 18:24 Urine Urobilinogen 1.0 mg/dL (Negative) 06/07/24 18:24 Ur Leukocyte Esterase 1+ (Negative) A 06/07/24 18:24 Urine RBC 0-2 /hpf (0-2) 06/07/24 18:24 Urine WBC 0-5 /hpf (0-5) 06/07/24 18:24 Ur Squamous Epith Cells 0-5 /hpf (0-5) 06/07/24 18:24 Amorphous Sediment Not Reportable 06/07/24 18:24 Urine Bacteria None seen /hpf (NONE) 06/07/24 18:24 Hyaline Casts 0.40 /lpf 06/07/24 18:24 All radiology interpretation(s) finalized by discharge Critical Care Time Critical Care Time: Critical Care Time: No Discharge Plan Discharge Patient Disposition: Home Clinical Impression: Low back pain, Transaminitis, Nausea & vomiting, Acute dehydration, Cyst of left ovary Condition: Good Prescriptions: New lidocaine [Lidoderm] 5 % adhesive patch,medicated 1 patch topical DAILY Qty: 15 0RF Rx Instructions: leave on most painful area for up to 12 hrs promethazine 25 mg tablet 12.5 - 25 mg PO Q6H PRN (Reason: nausea and vomiting) Qty: 10 0RF methocarbamol 750 mg tablet 1,500 mg PO TID PRN (Reason: muscle pain) Qty: 30 0RF Rx Instructions: No alcohol use or driving with this medication. No Action (DME) Hinged Knee Brace See Rx Instructions .Route .MEDSUPPLY Qty: 1 0RF Rx Instructions: As directed trazodone 150 mg tablet 150 mg PO QPM Qty: 30 2RF leflunomide 20 mg tablet 20 mg PO DAILY Qty: 30 3RF gabapentin 300 mg capsule 600 mg PO QID 30 Days Qty: 240 3RF fluoxetine [Prozac] 40 mg capsule 40 mg PO DAILY Qty: 30 2RF hydrocodone-acetaminophen 5-325 mg tablet 1 tab PO TID tramadol 50 mg tablet 50 mg PO Q4H topiramate 200 mg tablet 200 mg PO BID ondansetron 4 mg tablet,disintegrating 4 mg PO TID triamterene-hydrochlorothiazid 37.5-25 mg capsule 1 cap PO DAILY alprazolam 0.25 mg tablet 0.25 mg PO TID PRN (Reason: Anxiety) Eliquis 5 mg tablet 5 mg PO BID Discharge Orders: Discharge ED (Routine); Ordered 06/07/24 Ordered By: Mesfin Whitney Referrals: Joaquin Mak MD [Primary Care Provider] - Discharge Diet: Advance as tolerated and Clear Liquid Discharge Activity: Limit activity as instructed Patient Instructions: Opioid Safety, Pain Management, Abdominal Pain (ED), Acute Nausea and Vomiting (ED), Acute Low Back Pain (ED) Activity Restrictions/Additional Instructions: Take medications as directed. Your prescriptions were sent electronically to the [facility] pharmacy, [facility]. Avoid all medications with Tylenol (acetaminophen) in them Clear liquid diet for the next 12 to 24 hours then advance to a bland diet as tolerated. Avoid activities that make the pain worse such as bending, lifting, twisting etc. Alternate ice and heat to the back. Ice for 20 minutes, then nothing for 20 minutes, then heat for 20 minutes. Repeat 4-5 times throughout the day. Follow-up with your doctor within 1 week for recheck. Return to the emergency department with any worsening symptoms such as fever, rash, loss of bowel or bladder control or any other worsening symptoms. Print Language: Marshallese Coding Level of Care Code ED Microphone Operator for Mark Berg
[2024-06-07 18:15] LABS: Basophils # 0.1 10^3/uL (0.0-0.1); Eosinophils # 0.1 10^3/uL (0.0-0.8); Eosinophils % 1.2 %; Hematocrit 37.5 % (36-47); Lymphocytes % 39.2 %; Mean Corpuscular HGB Conc 30.4 g/dL (30-55); Mean Corpuscular Hemoglobin 25.1 pg (27-33); Mean Corpuscular Volume 82.6 fl (85-98); Mean Platelet Volume 10.1 fL (7.4-10.4); Monocytes # 0.3 10^3/uL (0.2-0.9); Neutrophils # 2.62 10^3/uL (1.8-7.7); Neutrophils % 52.4 %; Nucleated Red Blood Cells % 0 %; Platelet Count 350 10^3/cmm (157-399); Red Blood Count 4.54 10^6/uL (3.85-5.65)
[2024-06-07] MEDS: iohexol 350 mg/mL 500 mL Btl (per mL) IV (18:15)
[2024-06-07 18:31] LABS: Alanine Aminotransferase 312 U/L (0-33); Albumin Level 4.2 g/dL (3.5-5.2); Alkaline Phosphatase 174 U/L (35-105); Anion Gap 18.1 (5-19); Aspartate Amino Transferase 280 U/L (0-32); Blood Urea Nitrogen 8 mg/dL (6-20); Calcium 8.7 mg/dL (8.5-10.5); Carbon Dioxide 15 mmol/L (22-29); Chloride 108 mmol/L (98-107); Creatinine Clr Calc Pharmacy 56.2465; Globulin 2.9 g/dL (1.3-4.6); Glomerular Filtration Rate 56.9 mL/min (90-130); Glucose 83 mg/dL (65-115); Lipase 20 U/L (13-60); Osmolality Calculated 281 mOsm/kg (285-295); Potassium 4.1 mmol/L (3.5-5.1); Sodium 137 mmol/L (136-145); Total Bilirubin 0.8 mg/dL (0.15-1.2); Total Protein 7.1 g/dL (6.6-8.7)
[2024-06-07 18:46] LABS: Bilirubin Urine Negative (Negative); Blood Urine Negative (Negative); Glucose Urine UA Negative (Normal); Ketones Urine Negative (Negative); Leukocyte Esterase Urine 1+ (Negative); Nitrate Urine Negative (Negative); Protein Urine Negative (Negative); Specific Gravity, Urine 1.016 (1.005-1.030); Urine Appearance Clear (CLEAR); Urine Color Yellow (Yellow)
[2024-06-07 18:51] LABS: Add Urine Microscopic? YES; Bacteria Urine None Seen /hpf; RBC Urine 0-2 /hpf (0-2); Squamous Epithelial Cell Urine 0-5 /hpf (0-5); WBC Urine 0-5 /hpf (0-5)
[2024-06-07] MEDS: acetaminophen 1,000 MG/100 ML PIGGYBACK 400 MG IV (18:53)
[2024-06-07 18:55] LABS: Add Urine Culture? No
[2024-06-07] MEDS: ondansetron 2 mg/ML SDV 2 mL 4 MG IVP (18:56)
[2024-06-07] MEDS: promethazine 25 mg/mL SDV 1 mL IM (19:27)
[2024-06-07] MEDS: lactated ringers 1,000 ML 999 ML IV (19:29)
[2024-06-07 20:11] VITALS: BP 138/78; PULSE 98; RESP 20; O2SAT 100
== END 2024-06-07 20:13 | disposition home or self-care (01) ==
PROVIDERS: Emergency Provider Physician Assistant; PCP Family Medicine
DX: M54.50 Low back pain, unspecified (principal); R74.01 Elevation of levels of liver transaminase levels; R11.2 Nausea with vomiting, unspecified; E86.0 Dehydration; N83.202 Unspecified ovarian cyst, left side; Z79.01 Long term (current) use of anticoagulants; F17.290 Nicotine dependence, other tobacco product, uncomplicated
CPT/HCPCS: 12345; 36415; 74177; 80053; 81001; 83690; 85025; 96365; 96372; 96375; 99285; J0131; J2405; J2550; J7120

== ENCOUNTER 2024-06-12 07:42 | Outpatient (CLI) | payer MEDICAID, SELFPAY ==
--- NOTE | 2024-06-12 07:47 | MR_ITS ---
WS: [id number] MRI RIGHT KNEE HISTORY: DERANGEMENT OF R KNEE COMPARISON: Radiograph 05/26/2024 Anterior cruciate ligament: Abnormal ACL. Normal orientation and signal within the ACL is no longer present. Consistent with a complete tear. ACL is more horizontally positioned than normally seen. Posterior cruciate ligament: Intact. Medial collateral ligament: Intact. Posterior lateral corner structures: There is a small amount of fluid within the substance of the proximal fibular collateral ligament. Minimal fluid between the fibular collateral ligament and the popliteus tendon near the femoral condyle. Biceps femoris tendon is intact. Medial menisci: Abnormal signal extending along the superior articular surface of the posterior horn towards the meniscal root. Mild blunting at the free edge. Lateral meniscus: Intact. Normal signal, size and shape. Extensor mechanism: Distal quadriceps tendon and patellar tendons are intact. Fluid and soft tissue: No joint effusion. Tiny Constantino's cyst. Osseous and articular structures: Patellofemoral compartment: Normal. Medial compartment: No significant joint space narrowing. There is a small amount of marrow edema in the medial most femoral condyle along the nonweightbearing surface. Lateral compartment: Well preserved. Focal marrow edema in the lateral tibial plateau. Marrow edema is along the lateral most aspect of the tibial plateau. MR/MR knee RT wo con* [id number] IMPRESSION: 1. Complete tear ACL. 2. Abnormal posterior horn medial meniscus. Increased fluid along the articula r surface the meniscus from the cartilage and blunting of the free e dge. 3. Focal marrow edema nonweightbearing surface medial femoral condyle. 4. Focal marrow edema in the lateral tibial plateau. 5. Suspect partial intrasubstance tear of the proximal fibular collateral liga ment. There is a very small amount of fluid within the ligament. The adjacent b iceps femoris tendon and the popliteus tendon appear intact. 6. Tiny Constantino's cyst.
== END 2024-06-12 07:43 | disposition home or self-care (01) ==
PROVIDERS: PCP Family Medicine; Visit Provider Family Medicine
DX: M23.91 Unspecified internal derangement of right knee (principal); R93.6 Abnormal findings on diagnostic imaging of limbs
CPT/HCPCS: 73721

== ENCOUNTER → 2024-06-13 09:03 | Outpatient (BNVA) | payer MEDICAID, SELFPAY | PROVIDERS: PCP Family Medicine; Visit Provider Orthopaedic Surgery | DX: Z01.818 Encounter for other preprocedural examination (principal) | CPT/HCPCS: 36415; 80053; 81001; 85025 ==

== ENCOUNTER 2024-06-18 11:29 | Emergency (ER) | payer MEDICAID, SELFPAY ==
[2024-06-18 11:37] VITALS: BP 90/58; PULSE 114; TEMP 37.1; O2SAT 95; BMI 23.4
--- NOTE | 2024-06-18 11:45 | XR_ITS ---
WS: [id number] Right knee, 3 views, 06/18/2024 Clinical Data: knee pain Comparison: Right knee, 05/26/2024 Findings: No fractures or dislocations are seen. The joint spaces are normal. The patella is intact. The soft tissues are unremarkable. Calcification of the soft tissue adjacent to the medial femoral condyle, Caleb-Stieda lesion, remains the same. XR/XR knee RT 3V* [id number] Impression: Negative right knee.
--- NOTE | 2024-06-18 11:45 | USCV_ITS ---
Mary Nesbitt Age: 33 Gender: F : 1990 Exam Date: 06/18/2024 11:57 Ordering Phys: Ramirez Elizabeth MD Technologist: R Exam Location: [facility] – [place] Indication: right leg swelling HISTORY: Right lower extremity swelling PROCEDURES: Venous duplex imaging was performed in only the right lower extremity. The following venous structures were evaluated: common femoral vein, profunda vein, proximal portion of the greater saphenous vein, superficial femoral vein, and the popliteal vein. In addition, the posterior tibial and peroneal trunk were evaluated. FINDINGS: Normal 2-D Doppler and augmentation and compressibility throughout the lower extremity venous structures. Additional imaging through the proximal calf veins also reveals no thrombus. Limited evaluation of the greater saphenous vein is patent with no thrombus. CONCLUSIONS No DVT right lower extremity. Dr. Lavonne Jimenez DO (Electronically Signed) Final Date: 18 June 2024 13:05 S
[2024-06-18] MEDS: HYDROmorphone 0.5 MG/0.5 ML INJ IVP (13:35)
--- NOTE | 2024-06-18 13:42 | ED_ITS ---
HPI - Extremity Problem General: Chief complaint: Extremity Problem,Nontraumatic Stated complaint: rt side swollen Time Seen by Provider: 06/18/24 12:59 Source: patient Mode of arrival: ambulatory Limitations: no limitations History of Present Illness: Patient is a 33-year-old female presents the emergency department complaining of right knee swelling beginning today. States that recently she was diagnosed with an ACL tear and is set to have surgery on beginning of next month. States pain was so significant this morning that she has had trouble walking. Currently she is also taking Eliquis for history of pulmonary embolism back in July of last year. Arrives wearing a knee brace, stating she is feeling numbness radiating down towards her toes. Takes hydrocodone for pain, took 1 of these prior to coming in. History of substance use disorder. She is witnessed ambulatory into the emergency room. MD Complaint: joint pain Onset (ago): day(s) Pain Consistency: constant Location: right and lower extremity (Knee) Radiation: distal Exacerbating factors: weight bearing and walking Associated symptoms: Deny chest pain, fever(s) or rash Related Data Home Medications ?Medication ?Instructions ?Recorded ?Confirmed alprazolam 0.25 mg tablet 0.25 mg PO TID PRN Anxiety 0 08/06/23 06/18/24 apixaban 5 mg tablet (Eliquis) 5 mg PO BID 01/22/24 hydrocodone 5 mg-acetaminophen 325 1 tab PO TID 06/18/24 mg tablet topiramate 200 mg tablet 200 mg PO BID 02/21/2406/18 tramadol 50 mg tablet 50 mg PO Q4H 02/21/24 lidocaine 5 % topical patch 1 patch topical DAILY 05/2206/18/24 Previous Rx's ?Medication ?Instructions ?Recorded gabapentin 300 mg capsule 600 mg (2 x 300 mg) PO QID 3 0 days 04/14/24 #240 caps trazodone 150 mg tablet 150 mg PO QPM #30 tabs 05/16 fluoxetine 40 mg capsule (Prozac) 40 mg PO DAILY #30 c aps 05/29/24 Allergies Allergy/AdvReac Type Severity Reaction Status Date / Time methylprednisolone Allergy Severe ALGY-Anaphy Verified 06/18/24 11:43 laxis Latex, Natural Rubber Allergy Intermediate rash, hives Verified 06/18/24 11:43 amoxicillin Allergy ALGY-Hives Verified 06/18/24 11:43 methotrexate AdvReac Intermediate migraines, Verified 06/18/24 11:43 N/V Review of Systems General: Reports: 10 or more systems reviewed and unremarkable except in HPI and below Const: Denies: fever(s) or chills Card: Denies: chest pain Resp: Denies: dyspnea or productive cough GI: Denies: abdominal pain, nausea, vomiting or diarrhea : Denies: flank pain Musc: Reports: joint pain and joint swelling; Denies: neck pain, back pain, extremity pain, extremity swelling, joint redness, joint warmth, limited range of motion or muscle weakness Skin/Breast: Denies: rash Neuro: Reports: numbness in extremities; Denies: headache(s) or weakness in extremities PFSH ED PFSH: Medical History Bipolar disorder, unspecified Family history of colon cancer Bilateral pulmonary embolism Vapes nicotine containing substance Seizures Hx of migraines Ovarian mass, right Family history of psoriasis in father High risk medication use Inflammatory back pain Inflammatory arthritis Psychiatric care Other 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 Mosher at [facility] History of tubal ligation 12/2015- per Dr. Mosher at [facility] H/O removal of cyst [address] Mosher Family History Mother Stroke Hyperlipidemia Family history of thyroid problem Hypertension Cancer of tongue Father Degenerative disc disease Diabetes Unknown Breast cancer maternal great aunt Grandmother Ovarian cancer maternal Uterine cancer maternal Other Cancer Chronic kidney disease (CKD) Rheumatoid arthritis Denies family history of Lupus Social History Smoking and tobacco/nicotine status: current every day tobacco/nicotine user e- cigarettes Second hand smoke exposure: No Alcohol intake: never Substance/Drug Use: never Physical Exam Const: COMMON NORMALS: no acute distress, patient oriented x3, no limitations, healthy appearing, alert and well nourished HENMT: COMMON NORMALS: normocephalic and atraumatic HEAD & SCALP: normocephalic and atraumatic Neck/C-Spine: COMMON NORMALS: full ROM, supple and no meningeal signs Resp: COMMON NORMALS: normal respiratory effort, No use of accessory muscles and clear to auscultation bilaterally AUSCULTATION: clear to auscultation bilaterally Cardio: COMMON NORMALS: regular rate and regular rhythm RATE: regular rate RHYTHM: regular rhythm Extremity: COMMON NORMALS: capillary refill normal, no joint enlargement and no clubbing, cyanosis or edema NARRATIVE EXTREMITY EXAM: Knee brace in place. Nontender to palpation. No obvious knee swelling. Mild calf tenderness to palpation. No obvious swelling of the right lower extremity. Distal strength intact. Distal sensations intact. 2+ DP/PT pulses. Neuro: COMMON NORMALS: patient oriented x3, moves all extremities, no focal motor deficits and no sensory deficits noted SENSORIUM/ORIENTATION: Yes alert MENINGEAL SIGNS: Yes no meningeal signs Skin: COMMON NORMALS: no rashes or lesions noted GENERAL SKIN EXAM: no rashes or lesions noted Course Vital Signs: Vital signs: Vital Signs Temperature 98.8 F 06/18/24 11:37 Pulse Rate 114 H 06/18/24 11:37 Blood Pressure 90/58 06/18/24 11:37 Pulse Oximetry 95 06/18/24 11:37 Oxygen Delivery Me thod Room Air 06/18/24 11:37 MDM - Extremity (Nontraumatic) Medical Decision Making Patient presented with reports of right knee pain and swelling, states that she recently was diagnosed with an ACL tear is set to undergo surgery. Woke with worsening pain and swelling, however on exam no appreciable swelling and palpation seem to elicit no tenderness. She does have a history of blood clots in her lungs for which she is currently on Eliquis, she verbalizes concern of a DVT. There is negative physical exam signs of this, and ultrasound of the right lower extremity did not show any signs of a DVT. In addition her knee x-ray was negative. I suspect that this is chronic in nature, and she is encouraged to continue her follow-up with orthopedic surgeon. She was given Dilaudid through IV here and notes significant improvement of her pain. She will be discharged at this time in stable condition, general return cautions given. Lab Data Radiology Impressions Knee X-Ray 06/18/24 11:45 Impression: Negative right knee. All radiology interpretation(s) finalized by discharge Discharge Plan Discharge Patient Disposition: Home Clinical Impression: Chronic pain of right knee Condition: Stable Prescriptions: No Action trazodone 150 mg tablet 150 mg PO QPM Qty: 30 2RF gabapentin 300 mg capsule 600 mg PO QID 30 Days Qty: 240 3RF fluoxetine [Prozac] 40 mg capsule 40 mg PO DAILY Qty: 30 2RF hydrocodone-acetaminophen 5-325 mg tablet 1 tab PO TID tramadol 50 mg tablet 50 mg PO Q4H topiramate 200 mg tablet 200 mg PO BID alprazolam 0.25 mg tablet 0.25 mg PO TID PRN (Reason: Anxiety) Eliquis 5 mg tablet 5 mg PO BID lidocaine 5 % adhesive patch,medicated 1 patch topical DAILY Discharge Orders: Discharge ED (Routine); Ordered 06/18/24 Ordered By: Boris Victor Referrals: Joaquin Mak MD [Primary Care Provider, [facility]] Patient Instructions: Knee Pain (ED) Activity Restrictions/Additional Instructions: Please follow-up with your general surgeon. Continue taking her hydrocodone at home. Continue compression device. Return with any coolness to your extremity, significant increase in pain, paralysis, or other symptoms that you have. Print Language: Togolese Coding Level of Care Code ED Locomotive Mechanic Apprentice for Mark Berg
[2024-06-18 14:08] VITALS: BP 95/62; PULSE 87; O2SAT 98
== END 2024-06-18 14:09 | disposition home or self-care (01) ==
PROVIDERS: Emergency Provider Physician Assistant; PCP Family Medicine
DX: M25.561 Pain in right knee (principal); Z79.01 Long term (current) use of anticoagulants; F17.290 Nicotine dependence, other tobacco product, uncomplicated
CPT/HCPCS: 73562; 93971; 96374; 99284; J1171

== ENCOUNTER 2024-07-16 07:52 | Day surgery (SDC) | payer MEDICAID, SELFPAY ==
[2024-07-16] VITALS (14 sets, daily range): BP systolic 103–137; BP diastolic 72–102; PULSE 88–102; RESP 13–21; TEMP 36.3–37.1; O2SAT 97–100
[2024-07-16] MEDS: sodium chloride 0.9% 1,000 ML 30 ML IV (08:16)
[2024-07-16] MEDS: midazolam 1 mg/mL INJ 2 mL 2 MG IVP (08:26)
--- NOTE | 2024-07-16 08:41 | ANES.PREANE2 ---
Pre-Anesthetic Assessment Height/Weight: Height 1.5 m Weight 52.163 kg Temp Pulse Resp BP Pulse Ox O2 Del Method 97.3 F L 90 18 116/84 97 Room Air 07/16/24 08:06 07/16/24 08:06 07/16/24 08:06 07/16/24 08:06 07/16/24 08:06 07/16/24 08:06 Operation Date: 07/16/24 09:20 Proposed Procedures p Knee Diagnostic and Surgical Arthroscopy With POSSIBLE Medial Meniscus Repair(Right) - Santhosh Gurrola MD s Anterior Cruciate Ligament Repair(Right) - Santhosh Gurrola MD Familial anesthetic complications: None Was Beta Omar taken within 24 hours: N/A Was Clonidine taken within 24 hours: N/A Last intake: Intake Last Liquid Date 07/15/24 Last Liquid Time 22:00 Last Solid Date 07/15/24 Last Solid Time 18:00 Social Tobacco and No alcohol Exam alert, oriented x 3, clear to auscultation bilaterally and regular rate & rhythm Airway Mallampati: Class I Dentition: chipped Pulmonary Hx DVT w/ PE Anesthetic Plan ASA status: 2 Anesthesia: General and Regional (specify below) Risk of > 500 ml blood loss (7ml/kg in children): No Medications/Allergies Home Medications ?Medication ?Instructions ?Recorded ?Confirmed ?Last Taken ?Type alprazolam 0.25 mg tablet 0.25 mg PO TID PRN Anxiety 08/06/23 07/16/24 07/14/24 History apixaban 5 mg tablet (Eliquis) 5 mg PO BID 01/22/24 07/16/24 06/18/24 History hydrocodone 5 mg-acetaminophen 325 1 tab PO TID 02/21/24 07/16/24 07/15/24 History mg tablet topiramate 200 mg tablet 200 mg PO BID 02/21/24 07/16/24 07/15/24 History tramadol 50 mg tablet 50 mg PO Q4H 02/21/24 07/16/24 07/14/24 History gabapentin 300 mg capsule 600 mg (2 x 300 mg) PO QID 30 days 04/14/24 07/16/24 07/15/24 Rx #240 caps trazodone 150 mg tablet 150 mg PO QPM #30 tabs 05/16/24 07/16/24 07/13/24 Rx fluoxetine 40 mg capsule (Prozac) 40 mg PO DAILY #30 caps 05/29/24 07/16/24 07/14/24 Rx lidocaine 5 % topical patch 1 patch topical DAILY 06/18/24 07/16/24 Unknown History ondansetron 4 mg disintegrating 4 mg PO TID PRN Nausea And Vomiting 07/15/24 07/16/24 07/14/24 History tablet Allergies Allergy/AdvReac Type Severity Reaction Status Date / Time methylprednisolone Allergy Severe ALGY-Anaphy Verified 07/15/24 09:13 laxis Latex, Natural Rubber Allergy Intermediate rash, hives Verified 07/15/24 09:13 amoxicillin Allergy ALGY-Hives Verified 07/15/24 09:13 methotrexate AdvReac Intermediate migraines, Verified 07/15/24 09:13 N/V Current Medications Generic Name Dose Route Start Last Admin Trade Name Freq PRN Reason Stop Dose Admin Sodium Chloride 1,000 mls @ 30 mls/hr 07/16/24 08:00 07/16/24 08:16 Sodium Chloride 0.9% IV 07/17/24 07:59 30 mls/hr .Q24H BLAYNE Administration Midazolam HCl 2 mg 07/16/24 07:54 07/16/24 08:26 Midazolam 1 Mg/Ml Inj 2 Ml IVP 2 mg Q5M PRN Administration Preop Anxiety PFSH Anesthesia Medical History Bipolar disorder, unspecified Family history of colon cancer Bilateral pulmonary embolism Vapes nicotine containing substance Seizures Hx of migraines Ovarian mass, right Family history of psoriasis in father High risk medication use Inflammatory back pain Inflammatory arthritis Psychiatric care 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 Mosher at [facility] History of tubal ligation 12/2015- per Dr. Mosher at [facility] H/O removal of cyst [address] Mosher Family History Mother Stroke Hyperlipidemia Family history of thyroid problem Hypertension Cancer of tongue Father Degenerative disc disease Diabetes Unknown Breast cancer maternal great aunt Grandmother Ovarian cancer maternal Uterine cancer maternal Other Cancer Chronic kidney disease (CKD) Rheumatoid arthritis Denies family history of Lupus Social History Smoking and tobacco/nicotine status: current every day tobacco/nicotine user e-cigarettes Second hand smoke exposure: No Alcohol intake: never Substance/Drug Use: never Data Anesthesia Cardiac Studies: Echocardiogram 08/04/23 Anesthesia Procedures Nerve Block Nerve Block 1: Main Anesthesia: general anesthesia Time Out Performed: Yes Consent: requested by attending/covering physician, from patient, from other, risks and benefits reviewed and patient agrees to proceed Nerve block location: adductor canal (R) Anesthesia monitors applied: pulse oximetry, EKG, BP cuff and oxygen Nerve block position: supine Anesthetic Used: ropivicaine 0.5% (30 ml) and with decadron (4 mg) Ultrasound used to: recognize landmarks and visualize and ID femerol nerve Nerve Stimulator Used?: No Interscalene/Femoral BLK: 4 stimuplex 21 g needle used for position and inplane approach, visualize local anesthetic spread and no vascular puncture identified Injection: neg aspiration of heme Patient Tolerated Procedure: well Complications: none
--- NOTE | 2024-07-16 08:50 | W.PM.OPSUD ---
Surgery/Procedure H&P Update DATE OF PROCEDURE: July 16, 2024 DATE H&P PERFORMED: 06/13/24 H&P UPDATE INFORMATION: I have reviewed H&P completed within last 30 days, I have examined patient prior to procedure and No changes to prior documentation PREOP DIAGNOSIS: Torn ACL right knee PLANNED PROCEDURE: Operation Date: 07/16/24 09:20 Proposed Procedures p Knee Diagnostic and Surgical Arthroscopy With POSSIBLE Medial Meniscus Repair(Right) - Santhosh Gurrola MD s Anterior Cruciate Ligament Repair(Right) - Santhosh Gurrola MD
[2024-07-16] MEDS: clindamycin 600 MG/50 ML PREMIX 100 MG IV (09:37)
--- NOTE | 2024-07-16 12:04 | P.OP_ITS ---
Operative Report Date of procedure: July 16, 2024 Surgeon: Santhosh Gurrola MD Procedure: Preoperative diagnosis: Internal derangement right knee with torn ACL Postop diagnosis: Torn anterior cruciate ligament right knee Procedure: Diagnostic right knee arthroscopy with debridement of ACL stump and reconstruction of ACL using both and allograft and autograft Surgeon: Santhosh Gurrola MD Radiation Oncology Therapist: GLENN Griffith's assistance was necessary for positioning the patient, assistance during the procedure, wound closure, and dressing placement. Also assist with transfer the patient back to the PACU Anesthesia: General With preoperative adductor canal block EBL: 20 cc Indications: Mary is a 33-year-old white female was referred to the orthopedic clinics for evaluation of right knee pain and instability. She had had an MRI done by her primary care which demonstrated torn ACL. Patient is on sure of when this injury happened. There is also question as to whether might be bilateral meniscal tears. After clinical evaluation is felt the patient would benefit from diagnostic right knee arthroscopy with ACL reconstruction. Lengthy discussion was had about the use of hamstring graft from her i.e. autografts as well as the use of an allograft if necessary. I indicated to her that because of her small stature and size that her tissues I harvest may not be large enough and may need to be supplemented with an allograft. She is understanding of this and would like to proceed with autograft and the use of allograft if necessary. All risk benefits treatment alternatives were discussed she was agreeable to this. I also discussed possibility of debridement versus repair of any meniscal injury. Procedure: After obtaining the consent patient had preoperative block placed in the preoperative holding area. She is then taken the operating room placed the op table supine position general anesthetic administered. Once good anesthesia was achieved pneumatic cuffs placed around proximal right thigh. Right leg was placed leg quintanilla and the foot the bed was dropped. Left leg was padded out appropriately. Right leg was prepped and draped usual fashion. After surgical timeout standard anterior medial and lateral portals were made into her right knee. Camera cannula placed a lateral portal into her knee is undertaken. Suprapatellar pouch had hypertrophic synovium in the area. Posterior patella was in good repair as well as the IT groove. Medial gutter was clear. Medial compartment demonstrated intact articular cartilage of both the femur and tibia. Probing of the meniscus demonstrated no signs of any meniscal tear. Intercondylar notch demonstrated complete tear and detachment of the ACL from its femoral insertion of the posterior intercondylar notch. No other abnormalities noted. Lateral compartment also demonstrated intact cartilage of the distal femur and tibia. Probing of the lateral meniscus demonstrated no tears either. At this point the ACL stump was debrided from the intercondylar notch using a thermal probe as well as mechanical shaver. Once this was achieved a anterior longitudinal incision was made over the pes anserinus region of the tibia. Sharp dissect taken on down to subcutaneous tissue electrocautery was for hemostasis. Under digital palpation identification of the hamstring tendons were identified and the fascia was divided along the course of the tendon with #15 blade. Using a right angle clamp hamstring tendons were identified and captured and a [place] drain wrapped around them to give tension. Subsequently whipstitch of 0 Vicryl was placed on either end of these. A tendon stripper was then used to strip each of these tendons. It is first noted that the gracilis as well as the semitendinosis are very thin. Together they barely made a size 6 or 7 graft which is not large enough. Allograft was then thawed at this time. Which was a posterior tibialis. This was cut down to approximately a 5 mm graft and combined with the semitendinosus from patient made approximately a 9 mm graft. These were sized to a sizing tube after whipstitches of 0 Vicryl been placed through either end of the graft. Attention turned back towards the knee. Cameras replaced back in the knee and Felder guide was placed with the medial incision and into the intercondylar notch and directly visualized. Leg was put out to full extension and drill tube was placed up through the anterior incision onto the anterior tibia. Guidepin was drilled up through thereafter alignment with the joint line had been done with an external guide pin. Once pinned in place knee was flexed again and Felder guide was removed. Pin was tapped up into the intercondylar notch demonstrated to be in good position coming out through the footprint of the tibial ACL spot. And going up to the posterior lateral aspect of the intercondylar notch. #9 reamer was then used to ream the anterior tibia. Once this was done a small plug was placed within the tibial tunnel. Mechanical shaver was used to remove all bone fragments and fragments of articular cartilage from the proximal tibia. Impingement deanne that being a size 9 was placed up to the tibial tunnel and decision was then to make to a notchplasty with a mechanical bur. Where was placed up into the notch and appropriate bring it down to the notch was adequate size. At this point size 10 femoral Amer was placed up to the tibial tunnel into the posterior lateral aspect of the intercondylar notch. Once in position guidepin was drilled up into the posterior femur. After guide was removed it was evaluated and found to have adequate posterior wall. This was then reamed with a 9 mm reamer to a depth of 35 mm. Once this was removed and pin was removed, the camera was placed up to the tibial and femoral tunnels confirmed bony sampson of both and the tunnels which was confirmed. At this point knee was washed with copious amounts of irrigation. Graft was then placed in the aper fix femoral locking device. It was attached to this and the watermark was placed on the graft indicating how deep it needed to go. This is then driven on up fluid tibial tunnel into the femoral tunnel and deep into the femur. Once in place femoral locking device was then locked in place with good fixation. Subsequently ends of the graft were noted to be reaching all the way through to the anterior tibial surface ind icating they were long enough. Air then placed on attention device guidepin was placed up in between them through the tibial tunnel. Initial tibial sleeve was placed and then the tibial screw compressing the grafts into the tibial tunnel and fixing them well. Once this is in place all guidepins and traction devices were removed knee was put through range of motion tested. Under direct visualiz ation Helena's demonstrated good stability. No instability was identified. Graft excess was cut off with a #10 blade on the external surface of the tibia. Areas washed sterile irrigation. Deep structure reapproximated Vicryl [id number] sutures. Subcutaneous tissue reapproximated 0 Vicryl interrupted sutures and skin was closed with skin chani. Wounds are cleaned and dried they were then dressed with Xeroform gauze sterile gauze dressing ABD web roll and an Bala wrap for compression. Patient was then awakened and transferred recovery in stable condition
[2024-07-16] MEDS: fentaNYL 50 mcg/mL INJ 2mL IVP ×2 (12:20→12:30)
[2024-07-16] MEDS: ondansetron 2 mg/ML SDV 2 mL 4 MG IVP (12:29)
[2024-07-16] MEDS: acetaminophen 1,000 MG/100 ML PIGGYBACK 400 MG IV (12:44)
[2024-07-16] MEDS: HYDROcodone-acetaminophen 5-325 mg Tablet 1 TAB PO (13:20)
--- NOTE | 2024-07-16 14:05 | ANE.PACU2 ---
Inpatient post-anesthesia follow up: Airway intact: Yes Vital signs: Temperature 98 F Pulse Rate 88 Respiratory Rate 18 Blood Pressure 127/98 Pulse Oximetry 97 Oxygen Delivery Me thod Room Air Oxygen Flow Rate Fraction of Inspir ed Oxygen Hydration adequate: Yes Nausea and vomiting: No Pain level: 1 Mental status: Baseline
== END 2024-07-16 14:06 | disposition home or self-care (01) ==
PROVIDERS: PCP Family Medicine; Visit Provider Orthopaedic Surgery
PROC: (CPT 29870; principal; 2024-07-16 09:10)
PROC: (CPT 27407; 2024-07-16 09:10)
DX: S83.511A Sprain of anterior cruciate ligament of right knee, initial encounter (principal); W00.9XXA Unspecified fall due to ice and snow, initial encounter; Z86.718 Personal history of other venous thrombosis and embolism; Z86.711 Personal history of pulmonary embolism; F17.290 Nicotine dependence, other tobacco product, uncomplicated; R56.9 Unspecified convulsions
CPT/HCPCS: 29888; C1713; J0131; J1100; J1171; J1200; J2250; J2405; J2704; J2795; J3010; J3490; J7030; J9999

== ENCOUNTER 2024-07-26 14:40 | Emergency (ER) | payer MEDICAID, SELFPAY ==
[2024-07-26 14:48] VITALS: BP 123/71; PULSE 125; RESP 16; TEMP 36.9; O2SAT 97; BMI 23.2
--- NOTE | 2024-07-26 15:24 | USR_ITS ---
PROCEDURE INFORMATION: Exam: US Duplex Right Lower Extremity Veins, Limited Exam date and time: 07/26/2024 4:36 PM Age: 33 years old Clinical indication: Pain; Leg, lower; Right; Prior surgery; Surgery date: <1 month; Surgery type: Acl repair; Additional info: Post op pain TECHNIQUE: Imaging protocol: Real-time duplex ultrasound of the right extremity with 2-D may scale, color Doppler flow and spectral waveform analysis including responses to compression and other maneuvers (when performed) with image documentation. Limited exam was focused on the right lower extremity veins. COMPARISON: US pelvic complete* [id number] 02/10/2023 1:03 AM FINDINGS: Right deep veins: Unremarkable. The common femoral, femoral, proximal profunda femoral, popliteal, posterior tibial and peroneal veins are patent without thrombus. Normal Doppler waveforms. Normal compressibility and/or augmentation response. Superficial veins: Greater saphenous vein at the saphenofemoral junction is patent without thrombus. Soft tissues: Unremarkable. US/[place] [id number] IMPRESSION: No sonographic evidence of deep vein thrombosis.
--- NOTE | 2024-07-26 15:32 | W.ED.EXTPRO ---
HPI - Extremity Problem General: Chief complaint: Extremity Injury, Lower Stated complaint: pain post knee surgery Time Seen by Provider: 07/26/24 15:19 History of Present Illness: 33-year-old female presents with postop pain from a surgery of a reconstructive ACL on 07/16/2024. Patient reports that she has had pain every since the surgery. That the hydrocodone's are not helping. She has not followed up at the Ortho clinic. Patient presents today because she wants something different or more for pain. Associated symptoms: Deny chest pain or fever(s) Related Data Home Medications ?Medication ?Instructions ?Recorded ?Confirmed alprazolam 0.25 mg tablet 0.25 mg PO TID PRN Anxiety 08/06/23 07/26/24 topiramate 200 mg tablet 200 mg PO BID 02/21/24 07/26/24 tramadol 50 mg tablet 50 mg PO Q4H PRN Mild Pain (Scale 02/21/24 07/26/24 Score 1-4) ondansetron 4 mg disintegrating 4 mg PO TID PRN Nausea And Vomiting 07/15/24 07/26/24 tablet Previous Rx's ?Medication ?Instructions ?Recorded gabapentin 300 mg capsule 600 mg (2 x 300 mg) PO QID 30 days 04/14/24 #240 caps trazodone 150 mg tablet 150 mg PO QPM #30 tabs 05/16/24 fluoxetine 40 mg capsule (Prozac) 40 mg PO DAILY #30 caps 05/29/24 hydrocodone 5 mg-acetaminophen 325 1 tab PO Q6H PRN pain #30 tabs 07/16/24 mg tablet Allergies Allergy/AdvReac Type Severity Reaction Status Date / Time methylprednisolone Allergy Severe ALGY-Anaphy Verified 07/15/24 09:13 laxis Latex, Natural Rubber Allergy Intermediate rash, hives Verified 07/15/24 09:13 amoxicillin Allergy ALGY-Hives Verified 07/15/24 09:13 methotrexate AdvReac Intermediate migraines, Verified 07/15/24 09:13 N/V Review of Systems Const: Denies: fever(s) or chills Card: Denies: chest pain or palpitations Resp: Denies: dyspnea Musc: Reports: other (Please see HPI) Neuro: Denies: headache(s) PFSH ED PFSH: Medical History Bipolar disorder, unspecified Family history of colon cancer Bilateral pulmonary embolism Vapes nicotine containing substance Seizures Hx of migraines Ovarian mass, right Family history of psoriasis in father High risk medication use Inflammatory back pain Inflammatory arthritis Psychiatric care Other [facility] (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 Mosher at [facility] History of tubal ligation 12/2015- per Dr. Mosher at [facility] H/O removal of cyst [address] Mosher Family History Mother Stroke Hyperlipidemia Family history of thyroid problem Hypertension Cancer of tongue Father Degenerative disc disease Diabetes Unknown Breast cancer maternal great aunt Grandmother Ovarian cancer maternal Uterine cancer maternal Other Cancer Chronic kidney disease (CKD) Rheumatoid arthritis Denies family history of Lupus Social History Smoking and tobacco/nicotine status: current every day tobacco/nicotine user e-cigarettes Second hand smoke exposure: No Alcohol intake: never Substance/Drug Use: never Physical Exam Const: COMMON NORMALS: no acute distress and patient oriented x3 Resp: COMMON NORMALS: normal respiratory effort and clear to auscultation bilaterally AUSCULTATION: clear to auscultation bilaterally Cardio: COMMON NORMALS: regular rate and regular rhythm RATE: regular rate RHYTHM: regular rhythm Extremity: NARRATIVE EXTREMITY EXAM: Incision clean dry and intact, chani in place. Mild swelling. Mild tenderness to palpation. Neuro: COMMON NORMALS: patient oriented x3 Course Vital Signs: Vital signs: Vital Signs Temperature 98.5 F 07/26/24 14:48 Pulse Rate 125 H 07/26/24 14:48 Respiratory Rate 16 07/26/24 14:48 Blood Pressure 123/71 07/26/24 14:48 Pulse Oximetry 97 07/26/24 14:48 Oxygen Delivery Me thod Room Air 07/26/24 14:48 MDM - Extremity (Nontraumatic) Medical Decision Making Patient's ultrasound was negative for any DVT. There is no signs of infection swelling or other acute findings. Patient has had pain since surgery. Discussed with her that she will need to follow-up with her mis specialist for further pain management along with her primary care provider. Patient was given p.o. morphine and Zofran prior to discharge. I did discuss the case with or Ortho who is concerned about having some drug seeking behavior. All radiology interpretation(s) finalized by discharge Discharge Plan Discharge Condition: Stable Prescriptions: No Action trazodone 150 mg tablet 150 mg PO QPM Qty: 30 2RF gabapentin 300 mg capsule 600 mg PO QID 30 Days Qty: 240 3RF fluoxetine [Prozac] 40 mg capsule 40 mg PO DAILY Qty: 30 2RF tramadol 50 mg tablet 50 mg PO Q4H PRN (Reason: Mild Pain (Scale Score 1-4)) topiramate 200 mg tablet 200 mg PO BID ondansetron 4 mg tablet,disintegrating 4 mg PO TID PRN (Reason: Nausea And Vomiting) hydrocodone-acetaminophen 5-325 mg tablet 1 tab PO Q6H PRN (Reason: pain) Qty: 30 0RF alprazolam 0.25 mg tablet 0.25 mg PO TID PRN (Reason: Anxiety) Referrals: Joaquin Mak MD [Primary Care Provider, Family Practice] Print Language: Telugu Coding Level of Care Code ED B[employer] M[employer] Machine Tender for Mark Berg
--- NOTE | 2024-07-26 16:11 | PC.PHAR ---
Pt states she stopped taking Eliquis 5mg bid from 03/20/24 30ds. Removed from med list. 07/26/24
[2024-07-26] MEDS: ondansetron hcl ODT 4 mg Tab PO (16:50)
[2024-07-26] MEDS: morphine ER (12 HR) 15 mg Tablet PO (16:51)
== END 2024-07-26 17:09 | disposition home or self-care (01) ==
PROVIDERS: Emergency Provider Student in an Organized Health Care Education/Training Program; PCP Family Medicine
DX: M79.604 Pain in right leg (principal); G89.18 Other acute postprocedural pain; F17.290 Nicotine dependence, other tobacco product, uncomplicated
CPT/HCPCS: 93971; 99284; J9999; Q0162

== ENCOUNTER → 2024-07-28 08:45 | Outpatient (BNVA) | payer MEDICAID, SELFPAY | PROVIDERS: PCP Family Medicine; Visit Provider Orthopaedic Surgery | DX: G89.18 Other acute postprocedural pain (principal); M25.561 Pain in right knee; Z98.890 Other specified postprocedural states | CPT/HCPCS: 73562 ==

== ENCOUNTER 2024-08-01 19:35 | Emergency (ER) | payer MEDICAID, SELFPAY ==
[2024-08-01 19:38] VITALS: BP 115/77; PULSE 130; RESP 18; TEMP 37; O2SAT 97; BMI 23.4
--- NOTE | 2024-08-01 20:00 | XRR_ITS ---
PROCEDURE INFORMATION: Exam: XR Right Knee Exam date and time: 08/01/2024 8:06 PM Age: 33 years old Clinical indication: Pain; Prior surgery; Surgery date: <1 month; Surgery type: Right knee acl; Additional info: Knee pain TECHNIQUE: Imaging protocol: Radiologic exam of the right knee. Views: 1 or 2 views. COMPARISON: CR (KNEE AP, KNEE, KNEE AP) 07/28/2024 8:47 AM FINDINGS: Tubes, catheters and devices: Surgical clips overlying soft tissues of the knee. Bones/joints: No definite acute osseous abnormality. Redemonstrated ossific density along medial femoral condyle likely representing sequela of remote injury. No dislocation. Small suprapatellar joint effusion. Soft tissues: Normal. Other findings: Postsurgical changes related to internal derangement repair. XR/XR knee RT 1-2V 03307 IMPRESSION: No acute findings. Chronic findings as above.
--- NOTE | 2024-08-01 20:23 | ED_ITS ---
HPI - Extremity Problem General: Chief complaint: Extremity Problem,Nontraumatic Stated complaint: post knnee surg, feels infected open puss blood Time Seen by Provider: 08/01/24 19:53 History of Present Illness: Patient is 33-year-old female with recent right ACL repair that reports to ED with drainage expressed through her port holes/surgical holes with mild associated edema. Denies any fevers. This started today. Patient's not had any nausea, vomiting, chills. She denies any malaise. Associated symptoms: Deny chest pain or fever(s) Related Data Home Medications ?Medication ?Instructions ?Recorded ?Confirmed alprazolam 0.25 mg tablet 0.25 mg PO TID PRN Anxiety 0 08/06/23 07/28/24 topiramate 200 mg tablet 200 mg PO BID 02/21/2407/28 tramadol 50 mg tablet 50 mg PO Q4H PRN Mild Pain ( Scale 02/21/24 07/28/24 Score 1-4) ondansetron 4 mg disintegrating 4 mg PO TID PRN Nausea And Vomiting 07/15/24 07/28/24 tablet Previous Rx's ?Medication ?Instructions ?Recorded gabapentin 300 mg capsule 600 mg (2 x 300 mg) PO QID 3 0 days 04/14/24 #240 caps fluoxetine 40 mg capsule (Prozac) 40 mg PO DAILY #30 c aps 05/29/24 hydrocodone 5 mg-acetaminophen 325 1 tab PO Q6H PRN pa in #30 tabs 07/16/24 mg tablet sulfamethoxazole 800 1 tab PO BID 10 days #20 tab s 08/01/24 mg-trimethoprim 160 mg tablet (Bactrim DS) Allergies Allergy/AdvReac Type Severity Reaction Status Date / Time methylprednisolone Allergy Severe ALGY-Anaphy Verified 08/01/24 19:39 laxis Latex, Natural Rubber Allergy Intermediate rash, hives Verified 08/01/24 19:39 amoxicillin Allergy ALGY-Hives Verified 08/01/24 19:39 methotrexate AdvReac Intermediate migraines, Verified 08/01/24 19:39 N/V Review of Systems Const: Denies: fever(s) or chills Card: Denies: chest pain or palpitations Resp: Denies: dyspnea or productive cough GI: Denies: abdominal pain, nausea or vomiting Musc: Reports: joint pain and joint swelling PFSH ED PFSH: Medical History Bipolar disorder, unspecified Family history of colon cancer Bilateral pulmonary embolism Vapes nicotine containing substance Seizures Hx of migraines Ovarian mass, right Family history of psoriasis in father High risk medication use Inflammatory back pain Inflammatory arthritis Psychiatric care Other group home (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 Mosher at [facility] History of tubal ligation 12/2015- per Dr. Mosher at [facility] H/O removal of cyst [address] Mosher Family History Mother Stroke Hyperlipidemia Family history of thyroid problem Hypertension Cancer of tongue Father Degenerative disc disease Diabetes Unknown Breast cancer maternal great aunt Grandmother Ovarian cancer maternal Uterine cancer maternal Other Cancer Chronic kidney disease (CKD) Rheumatoid arthritis Denies family history of Lupus Social History Smoking and tobacco/nicotine status: never used tobacco/nicotine Second hand smoke exposure: No Alcohol intake: never Substance/Drug Use: never Physical Exam Const: COMMON NORMALS: no acute distress, average body habitus and patient oriented x3 EXAM LIMITATIONS: no altered mental status GENERAL APPEARANCE: cooperative and comfortable; not in distress ORIENTATION/CONSCIOUSNESS: Yes awake and Yes oriented to person Resp: COMMON NORMALS: normal respiratory effort and clear to auscultation bilaterally AUSCULTATION: clear to auscultation bilaterally Cardio: COMMON NORMALS: regular rate and regular rhythm RATE: regular rate RHYTHM: regular rhythm GI: COMMON NORMALS: Normal to inspection, nondistended, normoactive bowel sounds present, Soft to palpation and non-tender PALPATION: Yes Soft to palpation Extremity: COMMON NORMALS: full ROM GENERAL: Yes normal exam except as noted RIGHT LOWER EXTREMITY: Yes lower leg Right lower leg: Yes other (sutures, minimal yellow drainage to bandage) Neuro: COMMON NORMALS: patient oriented x3 SENSORIUM/ORIENTATION: Yes oriented to person Skin: GENERAL SKIN EXAM: crusts (minimal yellow on incisions without edema) and other (minimal discharge on bandage of right knee, creamy white, scant amount) Course Vital Signs: Vital signs: Vital Signs Temperature 98.6 F 08/01/24 19:38 Pulse Rate 112 H 08/01/24 20:57 Respiratory Rate 18 08/01/24 19:38 Blood Pressure 117/74 08/01/24 20:57 Pulse Oximetry 98 08/01/24 20:57 Oxygen Delivery Me thod Room Air 08/01/24 19:38 MDM - Extremity (Nontraumatic) Medical Decision Making Patient 3-year-old female with ACL repair that started having increased pain, and mild drainage on bandage. Given her recent knee surgery, will add Bactrim DS. Patient has follow-up with orthopedist on Sunday for further decision- making. Knee x-ray is benign. Lab Data Radiology Impressions Knee X-Ray 08/01/24 20:00 IMPRESSION: No acute findings. Chronic findings as above. XR interpretation done by ED provider, pending radiology final review ED provider radiology interpretation(s): no acute Discharge Plan Discharge Patient Disposition: Home Clinical Impression: Acute knee pain Qualifiers: Laterality: right Qualified Code(s): M25.561 - Pain in right knee Condition: Stable Prescriptions: New sulfamethoxazole-trimethoprim [Bactrim DS] 800-160 mg tablet 1 tab PO BID 10 Days Qty: 20 0RF No Action gabapentin 300 mg capsule 600 mg PO QID 30 Days Qty: 240 3RF fluoxetine [Prozac] 40 mg capsule 40 mg PO DAILY Qty: 30 2RF tramadol 50 mg tablet 50 mg PO Q4H PRN (Reason: Mild Pain (Scale Score 1-4)) topiramate 200 mg tablet 200 mg PO BID ondansetron 4 mg tablet,disintegrating 4 mg PO TID PRN (Reason: Nausea And Vomiting) hydrocodone-acetaminophen 5-325 mg tablet 1 tab PO Q6H PRN (Reason: pain) Qty: 30 0RF alprazolam 0.25 mg tablet 0.25 mg PO TID PRN (Reason: Anxiety) Discharge Orders: Discharge ED (Routine); Ordered 08/01/24 Ordered By: Kezia Monroy Referrals: Joaquin Mak MD [Primary Care Provider, Family Practice] Discharge Diet: Usual diet Discharge Activity: Resume usual activity Patient Instructions: Knee Pain (ED), Opioid Safety, Pain Management Activity Restrictions/Additional Instructions: instructed by orthopedist Follow-up with orthopedist as as scheduled on Sunday Probiotic or active culture yogurt with antibiotics Print Language: Ghanaian Coding Level of Care Code ED Supervisor Maintenance And Custodians for Mark Berg
[2024-08-01] MEDS: sulfamethoxazole-trimeth DS 160-800 mg Tablet 1 TAB PO (20:54)
[2024-08-01 20:57] VITALS: BP 117/74; PULSE 112; O2SAT 98
== END 2024-08-01 20:58 | disposition home or self-care (01) ==
PROVIDERS: Emergency Provider Physician Assistant; PCP Family Medicine
DX: M25.561 Pain in right knee (principal); Z98.890 Other specified postprocedural states
CPT/HCPCS: 73560; 99283; J9999

== ENCOUNTER 2024-08-12 16:52 | Emergency (ER) | payer MEDICAID, SELFPAY ==
[2024-08-12 16:54] VITALS: BP 104/81; PULSE 137; RESP 19; TEMP 36.8; O2SAT 96
--- NOTE | 2024-08-12 17:03 | W.ED.SEIZURE ---
Documented by User: Kris Odell DO 08/18/24 15:15 HPI - Seizure General: Chief Complaint: Seizure Stated Complaint: Seizure Time Seen by Provider: 08/12/24 16:56 History of Present Illness: HPI Narrative: 33-year-old female has a history of seizure disorder presents emergency room generally was not feeling well was found to have had a seizure after she had gone to lay down. EMS reported a 15-second seizure and route to the hospital. Patient does have a known history of seizure disorder. She is currently on topiramate. Seizure History: Yes Associated symptoms: Deny chest pain, chills or fever(s) Related Data Home Medications ?Medication ?Instructions ?Recorded ?Confirmed alprazolam 0.25 mg tablet 0.25 mg PO TID PRN Anxiety 08/06/23 08/07/24 topiramate 200 mg tablet 200 mg PO BID 02/21/24 08/07/24 tramadol 50 mg tablet 50 mg PO Q4H PRN Mild Pain (Scale 02/21/24 08/07/24 Score 1-4) ondansetron 4 mg disintegrating 4 mg PO TID PRN Nausea And Vomiting 07/15/24 08/07/24 tablet Previous Rx's ?Medication ?Instructions ?Recorded fluoxetine 40 mg capsule (Prozac) 40 mg PO DAILY #30 caps 05/29/24 hydrocodone 5 mg-acetaminophen 325 1 tab PO Q6H PRN pain #30 tabs 07/16/24 mg tablet gabapentin 300 mg capsule 600 mg (2 x 300 mg) PO QID 30 days 08/11/24 #240 caps Allergies Allergy/AdvReac Type Severity Reaction Status Date / Time methylprednisolone Allergy Severe ALGY-Anaphy Verified 08/07/24 11:54 laxis Latex, Natural Rubber Allergy Intermediate rash, hives Verified 08/07/24 11:54 amoxicillin Allergy ALGY-Hives Verified 08/07/24 11:54 methotrexate AdvReac Intermediate migraines, Verified 08/07/24 11:54 N/V Review of Systems Const: Denies: fever(s) or chills Card: Denies: chest pain Resp: Denies: dyspnea GI: Denies: abdominal pain : Denies: dysuria, urinary frequency or urinary urgency Musc: Denies: neck pain or back pain Skin/Breast: Denies: rash PFSH ED PFSH: Medical History Bipolar disorder, unspecified Family history of colon cancer Bilateral pulmonary embolism Vapes nicotine containing substance Seizures Hx of migraines Ovarian mass, right Family history of psoriasis in father High risk medication use Inflammatory back pain Inflammatory arthritis Psychiatric care 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 Mosher at [facility] History of tubal ligation 12/2015- per Dr. Mosher at [facility] H/O removal of cyst [address] Mosher Family History Mother Stroke Hyperlipidemia Family history of thyroid problem Hypertension Cancer of tongue Father Degenerative disc disease Diabetes Unknown Breast cancer maternal great aunt Grandmother Ovarian cancer maternal Uterine cancer maternal Other Cancer Chronic kidney disease (CKD) Rheumatoid arthritis Denies family history of Lupus Social History Smoking and tobacco/nicotine status: never used tobacco/nicotine Second hand smoke exposure: No Alcohol intake: never Substance/Drug Use: never Physical Exam Const: COMMON NORMALS: no acute distress GENERAL APPEARANCE: cooperative and comfortable ORIENTATION/CONSCIOUSNESS: Yes awake, Yes oriented to person, Yes oriented to place and Yes oriented to time HENMT: COMMON NORMALS: normocephalic, atraumatic and hearing grossly normal bilaterally HEAD & SCALP: normocephalic and atraumatic Resp: COMMON NORMALS: normal respiratory effort, No retractions, No use of accessory muscles and clear to auscultation bilaterally AUSCULTATION: clear to auscultation bilaterally Cardio: COMMON NORMALS: regular rate, regular rhythm and No murmurs present (Cardio) RATE: regular rate RHYTHM: regular rhythm GI: COMMON NORMALS: Soft to palpation and No hepatosplenomegaly present AUSCULTATION: Yes normoactive bowel sounds PALPATION: Yes Soft to palpation, No Tenderness to palpation present (GI), No Guarding due to palpation present (GI) and Yes No hepatosplenomegaly present Extremity: COMMON NORMALS: normal to inspection, capillary refill normal, no clubbing, cyanosis or edema, no calf tenderness and no pedal edema Neuro: SENSORIUM/ORIENTATION: Yes oriented to person, Yes oriented to place and Yes oriented to time Skin: COMMON NORMALS: no rashes or lesions noted GENERAL SKIN EXAM: no rashes or lesions noted Course Vital Signs: Vital signs: Vital Signs Temperature 98.3 F 08/12/24 16:54 Pulse Rate 102 H 08/12/24 18:02 Respiratory Rate 18 08/12/24 18:02 Blood Pressure 104/81 08/12/24 16:54 Pulse Oximetry 100 08/12/24 18:02 Oxygen Delivery Me thod Room Air 08/12/24 18:02 MDM - Seizure MDM Narrative Medical decision making narrative: Care signed out to Dr. Hardin at change of shift. See final notes for diagnosis and disposition. In summary, patient signed out to me by previous emergency physician pending some labs. Vital signs remained stable and she has been symptom-free and seizure-free while in the emergency department. Initially she was somewhat altered but now is clear, able to recall both remote and recent historical items. She speaking clearly with no lateralizing deficits. She has no headache or visual disturbance. She would like to be discharged home. The we discussed her labs including 3 point drop in hemoglobin since last checked several months ago. She does not show signs of acute blood loss anemia at this time and states that she had a hysterectomy and no longer has periods. She denies dark or frankly bloody stools. She notes that she is always welcome back in the emergency department if symptoms get worse. Though she claims she has been taking her topiramate, her daughter at the bedside states that she does not always take it. I suspect the subtherapeutic topiramate level is at least partially causative of her seizure today. She agrees not to drive until cleared by neurology and states that she will take her medicine as prescribed. Her mother, with whom she lives, will be called to give her a ride home. Lab Data 08/12/24 17:15 08/12/24 17:15 Labs: Laboratory Results WBC 10.22 10^3/uL (3.29-11.43) 08/12/24 17:15 RBC 3.31 10^6/uL (3.85-5.65) L 08/12/24 17:15 Hgb 8.90 g/dL (11.27-16.99) L 08/12/24 17:15 Hct 30.6 % (36-47) L 08/12/24 17:15 MCV 92.4 fl (85-98) 08/12/24 17:15 MCH 26.9 pg (27-33) L 08/12/24 17:15 MCHC 29.1 g/dL (30-55) L 08/12/24 17:15 RDW 18.2 % (12.1-15.1) H 08/12/24 17:15 Plt Count 390 10^3/cmm (157-399) 08/12/24 17:15 MPV 10.1 fL (7.4-10.4) 08/12/24 17:15 Neut % (Auto) 61.5 % 08/12/24 17:15 Lymph % (Auto) 29.8 % 08/12/24 17:15 [place] % (Auto) 7.6 % 08/12/24 17:15 Eos % (Auto) 0.2 % 08/12/24 17:15 Baso % (Auto) 0.3 % 08/12/24 17:15 Neut # (Auto) 6.28 10^3/uL (1.8-7.7) 08/12/24 17:15 Lymph # (Auto) 3.1 10^3/uL (0.8-4.8) 08/12/24 17:15 [place] # (Auto) 0.8 10^3/uL (0.2-0.9) 08/12/24 17:15 Eos # (Auto) 0.0 10^3/uL (0.0-0.8) 08/12/24 17:15 Baso # (Auto) 0.0 10^3/uL (0.0-0.1) 08/12/24 17:15 Nucleated RBC % (auto) 0 % 08/12/24 17:15 Nucleated RBCs # 0.0 /100WBC 08/12/24 17:15 Sodium 140 mmol/L (136-145) 08/12/24 17:15 Potassium 3.2 mmol/L (3.5-5.1) L 08/12/24 17:15 Chloride 104 mmol/L (98-107) 08/12/24 17:15 Carbon Dioxide 10 mmol/L (22-29) L 08/12/24 17:15 Anion Gap 29.2 (5-19) H 08/12/24 17:15 BUN 10 mg/dL (6-20) 08/12/24 17:15 Creatinine 0.9 mg/dL (0.5-0.9) 08/12/24 17:15 GFR Calculation 71.7 mL/min (90-130) L 08/12/24 17:15 Glucose 104 mg/dL (65-115) 08/12/24 17:15 Calculated Osmolality 289 mOsm/kg (285-295) 08/12/24 17:15 Lactic Acid 3.5 mmol/L (0.5-2.2) H 08/12/24 17:58 Calcium 8.9 mg/dL (8.5-10.5) 08/12/24 17:15 Magnesium 1.8 mg/dL (1.7-2.3) 08/12/24 17:15 Total Bilirubin 0.2 mg/dL (0.15-1.2) 08/12/24 17:15 AST 55 U/L (0-32) H 08/12/24 17:15 ALT 136 U/L (0-33) H 08/12/24 17:15 Alkaline Phosphatase 243 U/L (35-105) H 08/12/24 17:15 Creatine Kinase 62 U/L (26-192) 08/12/24 17:15 Total Protein 6.7 g/dL (6.6-8.7) 08/12/24 17:15 Albumin 4.0 g/dL (3.5-5.2) 08/12/24 17:15 Globulin 2.7 g/dL (1.3-4.6) 08/12/24 17:15 Urine Color Yellow (Yellow) 08/12/24 17:43 Urine Appearance Clear (CLEAR) 08/12/24 17:43 Urine pH 7.0 (5-7) 08/12/24 17:43 Ur Specific [place] 1.015 (1.005-1.030) 08/12/24 17:43 Urine Protein Negative (Negative) 08/12/24 17:43 Urine Glucose (UA) Negative (Normal) 08/12/24 17:43 Urine Ketones Trace (Negative) 08/12/24 17:43 Urine Blood Negative (Negative) 08/12/24 17:43 Urine Nitrate Negative (Negative) 08/12/24 17:43 Urine Bilirubin Negative (Negative) 08/12/24 17:43 Urine Urobilinogen 0.2 mg/dL (Negative) 08/12/24 17:43 Ur Leukocyte Esterase 1+ (Negative) A 08/12/24 17:43 Urine RBC 0-2 /hpf (0-2) 08/12/24 17:43 Urine WBC 6-10 /hpf (0-5) 08/12/24 17:43 Ur Squamous Epith Cells 0-5 /hpf (0-5) 08/12/24 17:43 Amorphous Sediment Not Reportable 08/12/24 17:43 Urine Bacteria None seen /hpf (NONE) 08/12/24 17:43 Hyaline Casts 1.65 /lpf 08/12/24 17:43 Ethyl Alcohol < 10 mg/dL (0-10) 08/12/24 17:15 Discharge Plan Discharge Patient Disposition: Home Clinical Impression: Observed seizure-like activity Condition: Stable Prescriptions: No Action fluoxetine [Prozac] 40 mg capsule 40 mg PO DAILY Qty: 30 2RF gabapentin 300 mg capsule 600 mg PO QID 30 Days Qty: 240 3RF tramadol 50 mg tablet 50 mg PO Q4H PRN (Reason: Mild Pain (Scale Score 1-4)) topiramate 200 mg tablet 200 mg PO BID ondansetron 4 mg tablet,disintegrating 4 mg PO TID PRN (Reason: Nausea And Vomiting) hydrocodone-acetaminophen 5-325 mg tablet 1 tab PO Q6H PRN (Reason: pain) Qty: 30 0RF alprazolam 0.25 mg tablet 0.25 mg PO TID PRN (Reason: Anxiety) Discharge Orders: Discharge ED (Routine); Ordered 08/12/24 Ordered By: Rory Hardin Referrals: Joaquin Mak MD [Primary Care Provider, Family Practice] Discharge Diet: Usual diet Discharge Activity: Increase activity as tolerated Patient Instructions: Epilepsy (ED), Patient Portal & Ben Instructions Activity Restrictions/Additional Instructions: Please take your seizure medicine as prescribed. Alcohol lowers your seizure threshold as stress and lack of sleep. Please do not drive until you have been cleared by your neurologist if you are having frequent seizures as this poses a great risk to yourself and everyone else on the road. Print Language: Guamanian Sign Out Sign Out Data: Patient Sign Out occurred on 08/12/24 at 18:33. Patient's care was discussed, and care was transferred from Kris Odell DO to Rory Hardin MD. Coding Level of Care Code ED Recreation Adviser for Chg Fwd Documented by User: Rory Hardin MD 08/12/24 18:35 HPI - Seizure General: Chief Complaint: Seizure Stated Complaint: Seizure Time Seen by Provider: 08/12/24 16:56 Related Data Home Medications ?Medication ?Instructions ?Recorded ?Confirmed alprazolam 0.25 mg tablet 0.25 mg PO TID PRN Anxiety 08/06/23 08/07/24 topiramate 200 mg tablet 200 mg PO BID 02/21/24 08/07/24 tramadol 50 mg tablet 50 mg PO Q4H PRN Mild Pain (Scale 02/21/24 08/07/24 Score 1-4) ondansetron 4 mg disintegrating 4 mg PO TID PRN Nausea And Vomiting 07/15/24 08/07/24 tablet Previous Rx's ?Medication ?Instructions ?Recorded fluoxetine 40 mg capsule (Prozac) 40 mg PO DAILY #30 caps 05/29/24 hydrocodone 5 mg-acetaminophen 325 1 tab PO Q6H PRN pain #30 tabs 07/16/24 mg tablet gabapentin 300 mg capsule 600 mg (2 x 300 mg) PO QID 30 days 08/11/24 #240 caps Allergies Allergy/AdvReac Type Severity Reaction Status Date / Time methylprednisolone Allergy Severe ALGY-Anaphy Verified 08/07/24 11:54 laxis Latex, Natural Rubber Allergy Intermediate rash, hives Verified 08/07/24 11:54 amoxicillin Allergy ALGY-Hives Verified 08/07/24 11:54 methotrexate AdvReac Intermediate migraines, Verified 08/07/24 11:54 N/V PFSH ED PFSH: Medical History Bipolar disorder, unspecified Family history of colon cancer Bilateral pulmonary embolism Vapes nicotine containing substance Seizures Hx of migraines Ovarian mass, right Family history of psoriasis in father High risk medication use Inflammatory back pain Inflammatory arthritis Psychiatric care 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 Mosher at [facility] History of tubal ligation 12/2015- per Dr. Mosher at [facility] H/O removal of cyst [address] Mosher Family History Mother Stroke Hyperlipidemia Family history of thyroid problem Hypertension Cancer of tongue Father Degenerative disc disease Diabetes Unknown Breast cancer maternal great aunt Grandmother Ovarian cancer maternal Uterine cancer maternal Other Cancer Chronic kidney disease (CKD) Rheumatoid arthritis Denies family history of Lupus Social History Smoking and tobacco/nicotine status: never used tobacco/nicotine Second hand smoke exposure: No Alcohol intake: never Substance/Drug Use: never Course Vital Signs: Vital signs: Vital Signs Temperature 98.3 F 08/12/24 16:54 Pulse Rate 102 H 08/12/24 18:02 Respiratory Rate 18 08/12/24 18:02 Blood Pressure 104/81 08/12/24 16:54 Pulse Oximetry 100 08/12/24 18:02 Oxygen Delivery Me thod Room Air 08/12/24 18:02 MDM - Seizure MDM Narrative Medical decision making narrative: In summary, patient signed out to me by previous emergency physician pending some labs. Vital signs remained stable and she has been symptom-free and seizure-free while in the emergency department. Initially she was somewhat altered but now is clear, able to recall both remote and recent historical items. She speaking clearly with no lateralizing deficits. She has no headache or visual disturbance. She would like to be discharged home. The we discussed her labs including 3 point drop in hemoglobin since last checked several months ago. She does not show signs of acute blood loss anemia at this time and states that she had a hysterectomy and no longer has periods. She denies dark or frankly bloody stools. She notes that she is always welcome back in the emergency department if symptoms get worse. Though she claims she has been taking her topiramate, her daughter at the bedside states that she does not always take it. I suspect the subtherapeutic topiramate level is at least partially causative of her seizure today. She agrees not to drive until cleared by neurology and states that she will take her medicine as prescribed. Her mother, with whom she lives, will be called to give her a ride home. Lab Data 08/12/24 17:15 08/12/24 17:15 Labs: Laboratory Results WBC 10.22 10^3/uL (3.29-11.43) 08/12/24 17:15 RBC 3.31 10^6/uL (3.85-5.65) L 08/12/24 17:15 Hgb 8.90 g/dL (11.27-16.99) L 08/12/24 17:15 Hct 30.6 % (36-47) L 08/12/24 17:15 MCV 92.4 fl (85-98) 08/12/24 17:15 MCH 26.9 pg (27-33) L 08/12/24 17:15 MCHC 29.1 g/dL (30-55) L 08/12/24 17:15 RDW 18.2 % (12.1-15.1) H 08/12/24 17:15 Plt Count 390 10^3/cmm (157-399) 08/12/24 17:15 MPV 10.1 fL (7.4-10.4) 08/12/24 17:15 Neut % (Auto) 61.5 % 08/12/24 17:15 Lymph % (Auto) 29.8 % 08/12/24 17:15 [place] % (Auto) 7.6 % 08/12/24 17:15 Eos % (Auto) 0.2 % 08/12/24 17:15 Baso % (Auto) 0.3 % 08/12/24 17:15 Neut # (Auto) 6.28 10^3/uL (1.8-7.7) 08/12/24 17:15 Lymph # (Auto) 3.1 10^3/uL (0.8-4.8) 08/12/24 17:15 [place] # (Auto) 0.8 10^3/uL (0.2-0.9) 08/12/24 17:15 Eos # (Auto) 0.0 10^3/uL (0.0-0.8) 08/12/24 17:15 Baso # (Auto) 0.0 10^3/uL (0.0-0.1) 08/12/24 17:15 Nucleated RBC % (auto) 0 % 08/12/24 17:15 Nucleated RBCs # 0.0 /100WBC 08/12/24 17:15 Sodium 140 mmol/L (136-145) 08/12/24 17:15 Potassium 3.2 mmol/L (3.5-5.1) L 08/12/24 17:15 Chloride 104 mmol/L (98-107) 08/12/24 17:15 Carbon Dioxide 10 mmol/L (22-29) L 08/12/24 17:15 Anion Gap 29.2 (5-19) H 08/12/24 17:15 BUN 10 mg/dL (6-20) 08/12/24 17:15 Creatinine 0.9 mg/dL (0.5-0.9) 08/12/24 17:15 GFR Calculation 71.7 mL/min (90-130) L 08/12/24 17:15 Glucose 104 mg/dL (65-115) 08/12/24 17:15 Calculated Osmolality 289 mOsm/kg (285-295) 08/12/24 17:15 Lactic Acid 3.5 mmol/L (0.5-2.2) H 08/12/24 17:58 Calcium 8.9 mg/dL (8.5-10.5) 08/12/24 17:15 Magnesium 1.8 mg/dL (1.7-2.3) 08/12/24 17:15 Total Bilirubin 0.2 mg/dL (0.15-1.2) 08/12/24 17:15 AST 55 U/L (0-32) H 08/12/24 17:15 ALT 136 U/L (0-33) H 08/12/24 17:15 Alkaline Phosphatase 243 U/L (35-105) H 08/12/24 17:15 Creatine Kinase 62 U/L (26-192) 08/12/24 17:15 Total Protein 6.7 g/dL (6.6-8.7) 08/12/24 17:15 Albumin 4.0 g/dL (3.5-5.2) 08/12/24 17:15 Globulin 2.7 g/dL (1.3-4.6) 08/12/24 17:15 Urine Color Yellow (Yellow) 08/12/24 17:43 Urine Appearance Clear (CLEAR) 08/12/24 17:43 Urine pH 7.0 (5-7) 08/12/24 17:43 Ur Specific [place] 1.015 (1.005-1.030) 08/12/24 17:43 Urine Protein Negative (Negative) 08/12/24 17:43 Urine Glucose (UA) Negative (Normal) 08/12/24 17:43 Urine Ketones Trace (Negative) 08/12/24 17:43 Urine Blood Negative (Negative) 08/12/24 17:43 Urine Nitrate Negative (Negative) 08/12/24 17:43 Urine Bilirubin Negative (Negative) 08/12/24 17:43 Urine Urobilinogen 0.2 mg/dL (Negative) 08/12/24 17:43 Ur Leukocyte Esterase 1+ (Negative) A 08/12/24 17:43 Urine RBC 0-2 /hpf (0-2) 08/12/24 17:43 Urine WBC 6-10 /hpf (0-5) 08/12/24 17:43 Ur Squamous Epith Cells 0-5 /hpf (0-5) 08/12/24 17:43 Amorphous Sediment Not Reportable 08/12/24 17:43 Urine Bacteria None seen /hpf (NONE) 08/12/24 17:43 Hyaline Casts 1.65 /lpf 08/12/24 17:43 Ethyl Alcohol < 10 mg/dL (0-10) 08/12/24 17:15 No radiology studies performed this visit Discharge Plan Discharge Patient Disposition: Home Clinical Impression: Observed seizure-like activity Condition: Stable Prescriptions: No Action fluoxetine [Prozac] 40 mg capsule 40 mg PO DAILY Qty: 30 2RF gabapentin 300 mg capsule 600 mg PO QID 30 Days Qty: 240 3RF tramadol 50 mg tablet 50 mg PO Q4H PRN (Reason: Mild Pain (Scale Score 1-4)) topiramate 200 mg tablet 200 mg PO BID ondansetron 4 mg tablet,disintegrating 4 mg PO TID PRN (Reason: Nausea And Vomiting) hydrocodone-acetaminophen 5-325 mg tablet 1 tab PO Q6H PRN (Reason: pain) Qty: 30 0RF alprazolam 0.25 mg tablet 0.25 mg PO TID PRN (Reason: Anxiety) Discharge Orders: Discharge ED (Routine); Ordered 08/12/24 Ordered By: Rory Hardin Referrals: Joaquin Mak MD [Primary Care Provider, Family Practice] Discharge Diet: Usual diet Discharge Activity: Increase activity as tolerated Patient Instructions: Epilepsy (ED), Patient Portal & Ben Instructions Activity Restrictions/Additional Instructions: Please take your seizure medicine as prescribed. Alcohol lowers your seizure threshold as stress and lack of sleep. Please do not drive until you have been cleared by your neurologist if you are having frequent seizures as this poses a great risk to yourself and everyone else on the road. Print Language: Guamanian Sign Out Sign Out Data: Patient Sign Out occurred on 08/12/24 at 18:33. Patient's care was discussed, and care was transferred from Kris Odell DO to Rory Hardin MD. Coding Level of Care Code ED Recreation Adviser for [employer] [place]
[2024-08-12 17:04] VITALS: PULSE 135; O2SAT 98
[2024-08-12 17:21] LABS: Basophils % 0.3 %; Eosinophils % 0.2 %; Hematocrit 30.6 % (36-47); Lymphocytes # 3.1 10^3/uL (0.8-4.8); Lymphocytes % 29.8 %; Mean Corpuscular HGB Conc 29.1 g/dL (30-55); Mean Corpuscular Hemoglobin 26.9 pg (27-33); Mean Corpuscular Volume 92.4 fl (85-98); Mean Platelet Volume 10.1 fL (7.4-10.4); Monocytes # 0.8 10^3/uL (0.2-0.9); Monocytes % 7.6 %; Neutrophils # 6.28 10^3/uL (1.8-7.7); Neutrophils % 61.5 %; Nucleated Red Blood Cells % 0 %; Platelet Count 390 10^3/cmm (157-399); Red Blood Count 3.31 10^6/uL (3.85-5.65); Red Cell Distribution Width 18.2 % (12.1-15.1); White Blood Count 10.22 10^3/uL (3.29-11.43)
[2024-08-12 17:46] LABS: Alanine Aminotransferase 136 U/L (0-33); Alkaline Phosphatase 243 U/L (35-105); Aspartate Amino Transferase 55 U/L (0-32); Blood Urea Nitrogen 10 mg/dL (6-20); Calcium 8.9 mg/dL (8.5-10.5); Carbon Dioxide 10 mmol/L (22-29); Chloride 104 mmol/L (98-107); Globulin 2.7 g/dL (1.3-4.6); Glomerular Filtration Rate 71.7 mL/min (90-130); Glucose 104 mg/dL (65-115); Magnesium 1.8 mg/dL (1.7-2.3); Osmolality Calculated 289 mOsm/kg (285-295); Sodium 140 mmol/L (136-145); Total Bilirubin 0.2 mg/dL (0.15-1.2); Total Protein 6.7 g/dL (6.6-8.7)
[2024-08-12 17:47] LABS: Creatine Phosphokinase 62 U/L (26-192)
[2024-08-12 17:53] LABS: Alcohol Level < 10 mg/dL (0-10)
[2024-08-12 17:54] LABS: Anion Gap 29.2 (5-19); Potassium 3.2 mmol/L (3.5-5.1)
[2024-08-12 18:02] VITALS: PULSE 102; RESP 18; O2SAT 100
--- OUTSIDE RECORDS SUMMARY | 2024-08-12 18:02 | XMS_ITS | Clinical Summary ---
Author Organization [facility] Address [address] [place] [address] Care Team Providers Care Electronic Typesetting Machine Operator Name Role Phone Joaquin Mak MD Primary Care Provider [phone] Allergies Active Allergy Reactions Criticality Noted Date Comments Latex Swelling Low 11/24/2019 Medications cetirizine (ZyrTEC) 10 mg tablet Take 10 mg by mouth daily. 10/29/2019 Active traMADoL (ULTRAM) 50 mg tablet 10/29/2019 Active acetaminophen (TYLENOL) 500 mg tablet Take 500 mg by mouth every 6 hours as needed. Two tablets PRN 11/24/2019 Active busPIRone (BUSPAR) 10 mg tablet Take 1 Tablet by mouth 2 times daily. 05/08/2023 Active leflunomide (ARAVA) 20 mg Tablet Take 1 Tablet by mouth daily. 05/08/2023 Active ondansetron (ZOFRAN ODT) 4 mg Tablet, Rapid Dissolve DISSOLVE 1 TABLET IN MOUTH THREE TIMES DAILY 05/07/2023 Active triamterene-hyd roCHLOROthiazid e (DYAZIDE) 37.5-25 mg capsule Take 1 Capsule by mouth daily. 04/27/2023 Active gabapentin (NEURONTIN) 300 mg capsule Take 600 mg by mouth 3 times daily. 05/07/2023 Active traZODone (DESYREL) 150 mg tablet Take 150 mg by mouth daily at bedtime. 05/08/2023 Active Active Problems Problem Noted Date Diagnosed Date History of endometriosis 05/17/2023 Ovarian cyst, left 05/17/2023 Anxiety state 11/24/2019 Dysthymic disorder 11/24/2019 Headache 11/24/2019 Bipolar affective 11/24/2019 Panic disorder 11/24/2019 Encounters Date Type Department Care Team Description 08/05/2024 External Device Data STL ABSTRACTION Provider, Abstract 07/10/2024 External Device Data STL ABSTRACTION Provider, Abstract 07/09/2024 External Device Data STL ABSTRACTION Provider, Abstract 07/08/2024 External Device Data STL ABSTRACTION Provider, Abstract 06/03/2024 External Device Data STL ABSTRACTION Provider, Abstract 05/20/2024 External Device Data STL ABSTRACTION Provider, Abstract from Last 3 Months Family History Medical History Relation Name Comments Cancer Father Liver,kidney, b rain Diabetes Father Cancer Mother Throat and toun ge Relation Name Status Comments Father Mother Social History Tobacco Use Types Packs/Day Years Used Date Smoking Tobacco: Former Cigarettes Q uit: 02/19/2018 Passive Smoke Exposure: Current Smokeless Tobacco: Never Tobacco Cessation:Counseling Given: Yes Alcohol Use Standard Drinks/Week Comments Not Currently 0 (1 standard drink = 0.6 oz pur e alcohol) Utility Needs Answer Date Recorded In the past 12 months has [employer], gas, oil, or water [employer] threatened to shut off services in your home? No 05/17/2023 Feeling Safe Answer Date Recorded Within the last year, have y ou been afraid of your partner or ex-partner? No 05/17/2023 Within the last year, have y ou been humiliated or emotionally abused in other ways by your partner or ex-partner? No Within the last year, have y ou been kicked, hit, slapped, or otherwise physically hurt by your partner or ex-partner? No 05/17/2023 Within the last year, have y ou been raped or forced to have any kind of sexual activity by your partner or ex-partner? No 05/17/2023 Social Connections Answer Date Recorded In a typical week, how many times do you talk on the telephone with family, friends, or neighbors? Once a week 05/17/19 How often do you get together with friends or re latives? Once a week 05/17/2023 How often do you attend oriental orthodox or spiritism serv ices? Never 05/17/2023 Do you belong to any clubs o r organizations such as oriental orthodox groups, unions, fraternal or athletic groups, or school groups? No 05/17/2023 How often do you attend meet ings of the clubs or organizations you belong to? Never 05/17/2023 Are you , , di vorced, , never , or living with a partner? 05/17/2023 Financial Resource Strain Answer Date R ecorded How hard is it for you to pa y for the very basics like food, housing, medical care, and heating? Hard 05/17/2023 Food Insecurity Answer Date Recorded In the past 12 months, have you worried that your food would run out before you had money to buy more? Sometimes true 2023 In the past 12 months, did y ou run out of food and didn't have money to buy more? Never true 05/17/2023 Transportation Needs Answer Date Record ed In the past 12 months, has l ack of transportation kept you from medical appointments or from getting medications? No 04/20 In the past 12 months, has l ack of transportation kept you from meetings, work, or from getting things needed for daily living? No 05/17/2023 Housing Stability Answer Date Recorded In the last 12 months, was t here a time when you were not able to pay the mortgage or rent on time? No 05/17/2023 Number of Times Moved in the Last Year Not on fi le 05/17/2023 Unstable Housing in the Last Year Not on file 05/17/2023 Comments No Sex and Gender Information Value Date Recorded Sex Assigned at Not on file Legal Sex Female 11:32 PM IGNITER CAPPER Gender Identity Not on file Sexual Orientation Not on file Last Filed Vital Signs Vital Sign Reading Time Taken Comments Blood Pressure 92/54 05/17/2023 10:35 AM CDT Pulse 75 12/29/2019 3:14 PM IGNITER CAPPER Temperature 37.2 C (98.9 F) 12/29/2019 2:03 PM IGNITER CAPPER Respiratory Rate 18 12/29/2019 3:14 PM IGNITER CAPPER Oxygen Saturation - - Inhaled Oxygen Concentration - - Weight 52.6 kg (116 lb) 05/17/2023 10:35 AM CDT Height 149.9 cm (4' 11 ) 05/17/2023 10:35 AM CDT Body Mass Index 23.43 05/17/2023 10:35 AM CDT Plan of Treatment Health Maintenance Due Date Last Done Comments HEPATITIS B VACCINES (1 of 3 - 19+ 3-dose series) 2008 HPV/Cotest (21-29) 2010 CERVICAL CANCER SCREENING 10/03/2019 HPV/Cotest (30-65) 10/03/2019 PAP SMEAR 10/03/2019 INFLUENZA VACCINE (#1) 2023 DTAP/TDAP/TD VACCINES (2 - T d or Tdap) 09/11/2032 09/11/2022 HPV VACCINES Aged Out No longer eligi ble based on patient's age to complete this topic [place] [address] [place] [address] HEALTH PLAN MEDICAID Care Teams Electronic Typesetting Machine Operator Relationship Specialty Start Date End Date Joaquin Mak MD [address] [id number] PCP - General Family Practice 12/29/19
--- OUTSIDE RECORDS SUMMARY | 2024-08-12 18:02 | XMS_ITS | Encounter Summary ---
Author Organization [facility] Address [address] [place] [address] Care Team Providers Care Concrete Layer Name Role Phone Joaquin Mak MD Primary Care Provider Encounter Details Date Type Department Care Team (Late st Contact Info) Description 08/05/2024 External Device Data STL ABSTRACTION Provider, Abstract NO ADDRESS ON FILE Social History Tobacco Use Types Packs/Day Years Used Date Smoking Tobacco: Former Cigarettes Q uit: 02/19/2018 Passive Smoke Exposure: Current Smokeless Tobacco: Never Alcohol Use Standard Drinks/Week Comments Not Currently 0 (1 standard drink = 0.6 oz pur e alcohol) Utility Needs Answer Date Recorded In the past 12 months has [employer], gas, oil, or water [employer] threatened to shut off services in your [...] week 05/17/2023 How often do you attend faith or hindu serv ices? Never 05/17/2023 Do you belong to any clubs o r organizations such as faith groups, unions, fraternal or athletic groups, or [...] on file Legal Sex Female 11:32 PM ANTHROPOLOGY FACULTY MEMBER Gender Identity Not on file Sexual Orientation Not on file documented as of this encounter Plan of Treatment Not on file documented as of this encounter Visit Diagnoses Not on filedocumented in this encounter Care Teams Concrete Layer Relationship Specialty Start Date End Date Joaquin Mak MD [address] [address] PCP - General Family Practice 12/29/19 documented as of this encounter
--- OUTSIDE RECORDS SUMMARY | 2024-08-12 18:02 | XMS_ITS | Clinical Summary ---
Author Organization [facility] Address [address] [place] [address] Care Team Providers Care Glass Products Inspector Name Role Phone Joaquin Mak MD Primary Care Provider [phone] Allergies Active Allergy Reactions Criticality Noted Date Comments Latex Swelling Low 11/24/2019 Medications cetirizine (ZyrTEC) 10 mg tablet Take 10 mg by mouth daily. 10/29/2019 Active gabapentin (NEURONTIN) 100 mg capsule TK 1 C PO TID 11/17/2019 Acti ve lithium carbonate (ESKALITH CR) 450 mg Controlled Release tablet TK 1 T PO BID 11/17/2019 Active ondansetron (ZOFRAN) 4 mg Tablet TAKE 1 TABLET BY MOUTH THREE TIMES A DAY NEEDED FOR NAUSEA AND VOMITING 11/04/2019 Active traMADoL (ULTRAM) 50 mg tablet 10/29/2019 Active traZODone (DESYREL) 50 mg tablet TK 1 T PO HS 11/17/2019 Active acetaminophen (TYLENOL) 500 mg tablet Take 500 mg by mouth every 6 hours as needed. Two tablets PRN Active Active Problems Problem Noted Date Diagnosed Date Anxiety state 11/24/2019 Bipolar affective 11/24/2019 Dysthymic disorder 11/24/2019 Panic disorder 11/24/2019 Headache 11/24/2019 Social History Tobacco Use Types Packs/Day Years Used Date Smoking Tobacco: Former Cigarettes Q uit: 2019 Comments No Sex and Gender Information Value Date Recorded Sex Assigned at Not on file Legal Sex Female 8:51 AM CDT Gender Identity Not on file Sexual Orientation Not on file Last Filed Vital Signs Vital Sign Reading Time Taken Comments Blood Pressure 119/75 12/29/2019 3:14 PM HAMMER FITTER Pulse 75 12/29/2019 3:14 PM HAMMER FITTER Temperature 37.2 C (98.9 F) 12/29/2019 2:03 PM HAMMER FITTER Respiratory Rate 18 12/29/2019 3:14 PM HAMMER FITTER Oxygen Saturation 99% 12/29/2019 3:14 PM HAMMER FITTER Inhaled Oxygen Concentration - - Weight 47.6 kg (105 lb) 12/29/2019 2:03 PM HAMMER FITTER Height 149.9 cm (4' 11 ) 12/29/2019 2:03 PM HAMMER FITTER Body Mass Index 21.21 12/29/2019 2:03 PM HAMMER FITTER Plan of Treatment Health Maintenance Due Date Last Done Comments DTAP/TDAP/TD VACCINES (1 - Tdap) 2008 HEPATITIS B VACCINES (1 of 3 - 19+ 3-dose series) 2008 HPV/Cotest (21-29) 2010 CERVICAL CANCER SCREENING 10/03/2019 HPV/Cotest (30-65) 10/03/2019 PAP SMEAR 10/03/2019 INFLUENZA VACCINE (#1) 2023 HPV VACCINES Aged Out No longer eligi ble based on patient's age to complete this topic Insurance Care Teams Glass Products Inspector Relationship Specialty Start Date End Date Joaquin Mak MD [address] [address] PCP - General Family Practice 12/29/19
[2024-08-12 18:04] LABS: Bilirubin Urine Negative (Negative); Blood Urine Negative (Negative); Glucose Urine UA Negative (Normal); Ketones Urine Trace (Negative); Leukocyte Esterase Urine 1+ (Negative); Nitrate Urine Negative (Negative); Protein Urine Negative (Negative); Specific Gravity, Urine 1.015 (1.005-1.030); Urine Appearance Clear (CLEAR); Urine Color Yellow (Yellow); Urobilinogen Urine 0.2 mg/dL (Negative)
[2024-08-12 18:09] LABS: Add Urine Microscopic? YES; Bacteria Urine None Seen /hpf; Hyaline Casts Urine 1.65 /lpf; RBC Urine 0-2 /hpf (0-2); Squamous Epithelial Cell Urine 0-5 /hpf (0-5)
[2024-08-12 18:23] LABS: Add Urine Culture? No
[2024-08-12 18:25] LABS: Lactic Sepsis W/Reflex 3.5 mmol/L (0.5-2.2)
[2024-08-12 20:01] LABS: Reflex Lactate Order REFLEX LACTIC ORDERD
== END 2024-08-12 18:48 | disposition home or self-care (01) ==
PROVIDERS: Family Medicine; Emergency Provider Student in an Organized Health Care Education/Training Program; PCP Family Medicine
DX: R56.9 Unspecified convulsions (principal)
CPT/HCPCS: 80053; 80307; 81001; 82550; 83605; 83735; 85025; 99283

== ENCOUNTER 2024-08-12 19:39 | Emergency (ER) | payer MEDICAID, SELFPAY ==
[2024-08-12 19:41] VITALS: BP 150/69; PULSE 117; RESP 18; TEMP 36.7; O2SAT 99; BMI 22.7
--- OUTSIDE RECORDS SUMMARY | 2024-08-12 19:45 | XMS_ITS | Encounter Summary ---
[facility] Organization [facility] Address [address] [place] [address] Care Team Providers Care Environmental Compliance Technician Name Role Phone Joaquin Mak MD Primary Care Provider [phone] Encounter Details Date Type Department Care Team [...] Recorded In the past 12 months has [employer], gas, oil, or water [employer] threatened to shut off services in your [...] week 05/17/2023 How often do you attend cheondoism or lutheran serv ices? Never 05/17/2023 Do you belong to any clubs o r organizations such as cheondoism groups, unions, fraternal or athletic groups, or [...] on file Legal Sex Female 11:32 PM BUSINESS COMMUNICATIONS INSTRUCTOR Gender Identity Not on file Sexual Orientation Not on file documented as of this encounter Plan of Treatment Not on file documented as of this encounter Visit Diagnoses Not on filedocumented in this encounter Care Teams Environmental Compliance Technician Relationship Specialty Start Date End Date Joaquin Mak MD [address] [address] PCP - General Family Practice 12/29/19 documented as of this encounter
--- OUTSIDE RECORDS SUMMARY | 2024-08-12 19:45 | XMS_ITS | Clinical Summary ---
Author Organization [facility] Address [address] [place] [address] Care Team Providers Care Tax Compliance Manager Name Role Phone Joaquin Mak MD Primary Care Provider [phone] Allergies Active Allergy Reactions Criticality Noted Date [...] Comments Blood Pressure 119/75 12/29/2019 3:14 PM GENERAL LABORER Pulse 75 12/29/2019 3:14 PM GENERAL LABORER Temperature 37.2 C (98.9 F) 12/29/2019 2:03 PM GENERAL LABORER Respiratory Rate 18 12/29/2019 3:14 PM GENERAL LABORER Oxygen Saturation 99% 12/29/2019 3:14 PM GENERAL LABORER Inhaled Oxygen Concentration - - Weight 47.6 kg (105 lb) 12/29/2019 2:03 PM GENERAL LABORER Height 149.9 cm (4' 11 ) 12/29/2019 2:03 PM GENERAL LABORER Body Mass Index 21.21 12/29/2019 2:03 PM GENERAL LABORER Plan of Treatment Health Maintenance Due Date Last Done Comments DTAP/TDAP/TD VACCINES (1 - Tdap) 2008 HEPATITIS B VACCINES (1 of 3 - 19+ 3-dose series) 2008 HPV/Cotest (21-29) 2010 CERVICAL CANCER SCREENING 10/03/2019 HPV/Cotest (30-65) 10/03/2019 PAP SMEAR 10/03/2019 INFLUENZA VACCINE (#1) 2023 HPV VACCINES Aged Out No longer eligi ble based on patient's age to complete this topic Insurance Care Teams Tax Compliance Manager Relationship Specialty Start Date End Date Joaquin Mak MD [address] [address] PCP - General Family Practice 12/29/19
--- OUTSIDE RECORDS SUMMARY | 2024-08-12 19:45 | XMS_ITS | Clinical Summary ---
Author Organization [facility] Address [address] [place] [address] Care Team Providers Care Manager Of Global Name Role Phone Joaquin Mak MD Primary Care Provider [phone] Allergies Active Allergy Reactions Criticality Noted Date [...] Encounters Date Type Department Care Team Description 08/12/2024 External Device Data STL ABSTRACTION Provider, Abstract 08/05/2024 External Device Data STL ABSTRACTION Provider, [...] Recorded In the past 12 months has [employer], gas, oil, or water [employer] threatened to shut off services in your [...] week 05/17/2023 How often do you attend rastafarian or anabaptist serv ices? Never 05/17/2023 Do you belong to any clubs o r organizations such as rastafarian groups, unions, fraternal or athletic groups, or [...] on file Legal Sex Female 11:32 PM HEAD TURBINE OPERATOR Gender Identity Not on file Sexual Orientation Not on file Last Filed Vital Signs Vital Sign Reading Time Taken Comments Blood Pressure 92/54 05/17/2023 10:35 AM CDT Pulse 75 12/29/2019 3:14 PM HEAD TURBINE OPERATOR Temperature 37.2 C (98.9 F) 12/29/2019 2:03 PM HEAD TURBINE OPERATOR Respiratory Rate 18 12/29/2019 3:14 PM HEAD TURBINE OPERATOR Oxygen Saturation - - Inhaled Oxygen Concentration [...] patient's age to complete this topic [place] [address] [place] [address] HEALTH PLAN MEDICAID Care Teams Manager Of Global Relationship Specialty Start Date End Date Joaquin Mak MD [address] [address] PCP - General Family Practice 12/29/19
--- OUTSIDE RECORDS SUMMARY | 2024-08-12 19:45 | XMS_ITS | Encounter Summary ---
Author Organization [facility] Address [address] [place] [address] Care Team Providers Care Plowing Gardens Name Role Phone Joaquin Mak MD Primary Care Provider [phone] Encounter Details Date Type Department Care Team (Late st Contact Info) Description 08/12/2024 External Device Data STL ABSTRACTION [...] Recorded In the past 12 months has [employer], gas, oil, or water [employer] threatened to shut off services in your [...] week 05/17/2023 How often do you attend tenriism or nondenominational serv ices? Never 05/17/2023 Do you belong to any clubs o r organizations such as tenriism groups, unions, fraternal or athletic groups, or [...] on file Legal Sex Female 11:32 PM RADIO SURVEY WORKER Gender Identity Not on file Sexual Orientation Not on file documented as of this encounter Plan of Treatment Not on file documented as of this encounter Visit Diagnoses Not on filedocumented in this encounter Care Teams [place]ing [place] Relationship Specialty Start Date End Date Joaquin Mak MD [address] [address] PCP - General Family Practice 12/29/19 documented as of this encounter
--- NOTE | 2024-08-12 19:54 | W.ED.SEIZURE ---
HPI - Seizure General: Chief Complaint: Seizure Stated Complaint: SEIZURE Time Seen by Provider: 08/12/24 19:40 History of Present Illness: HPI Narrative: Patient stated that after she left here for home, her daughter was helping her in the house, when she face planted from standing position, and had tonic-clonic seizure with daughter witnessed. She had epistaxis out of her left nostril that is now controlled with bleeding. This occurred just prior to arrival. Patient arrived via EMS. Patient denied any incontinence. Seizure History: Yes Associated symptoms: Deny chest pain, chills, fever(s) or malaise Related Data Home Medications ?Medication ?Instructions ?Recorded ?Confirmed alprazolam 0.25 mg tablet 0.25 mg PO TID PRN Anxiety 08/06/23 08/07/24 topiramate 200 mg tablet 200 mg PO BID 02/21/24 08/07/24 tramadol 50 mg tablet 50 mg PO Q4H PRN Mild Pain (Scale 02/21/24 08/07/24 Score 1-4) ondansetron 4 mg disintegrating 4 mg PO TID PRN Nausea And Vomiting 07/15/24 08/07/24 tablet Previous Rx's ?Medication ?Instructions ?Recorded fluoxetine 40 mg capsule (Prozac) 40 mg PO DAILY #30 caps 05/29/24 hydrocodone 5 mg-acetaminophen 325 1 tab PO Q6H PRN pain #30 tabs 07/16/24 mg tablet gabapentin 300 mg capsule 600 mg (2 x 300 mg) PO QID 30 days 08/11/24 #240 caps Allergies Allergy/AdvReac Type Severity Reaction Status Date / Time methylprednisolone Allergy Severe ALGY-Anaphy Verified 08/07/24 11:54 laxis Latex, Natural Rubber Allergy Intermediate rash, hives Verified 08/07/24 11:54 amoxicillin Allergy ALGY-Hives Verified 08/07/24 11:54 methotrexate AdvReac Intermediate migraines, Verified 08/07/24 11:54 N/V Review of Systems General: Reports: 10 or more systems reviewed and unremarkable except in HPI and below Const: Denies: fever(s), chills or malaise Eyes: Denies: change in vision or blurry vision ENMT: Denies: throat pain or mouth pain Card: Denies: chest pain or palpitations Resp: Denies: dyspnea or productive cough GI: Denies: abdominal pain, nausea or vomiting : Denies: flank pain, difficulty voiding or urinary incontinence Musc: Denies: neck pain, back pain or extremity pain Skin/Breast: Denies: rash or pruritus Neuro: Denies: headache(s) or numbness in extremities Psych: Reports: anxiety; Denies: depression Damien/Lymph: Denies: easy bruising or easy bleeding All/Imm: Denies: urticaria or throat swelling PFSH ED PFSH: Medical History Bipolar disorder, unspecified Family history of colon cancer Bilateral pulmonary embolism Vapes nicotine containing substance Seizures Hx of migraines Ovarian mass, right Family history of psoriasis in father High risk medication use Inflammatory back pain Inflammatory arthritis Psychiatric care Other rodent 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 Mosher at [facility] History of tubal ligation 12/2015- per Dr. Mosher at [facility] H/O removal of cyst [address] Mosher Family History Mother Stroke Hyperlipidemia Family history of thyroid problem Hypertension Cancer of tongue Father Degenerative disc disease Diabetes Unknown Breast cancer maternal great aunt Grandmother Ovarian cancer maternal Uterine cancer maternal Other Cancer Chronic kidney disease (CKD) Rheumatoid arthritis Denies family history of Lupus Social History Smoking and tobacco/nicotine status: never used tobacco/nicotine Second hand smoke exposure: No Alcohol intake: never Substance/Drug Use: never Physical Exam Const: COMMON NORMALS: no acute distress, average body habitus, patient oriented x3 and alert EXAM LIMITATIONS: behavioral limitations; no altered mental status GENERAL APPEARANCE: cooperative and anxious HENMT: COMMON NORMALS: normocephalic, atraumatic, external ears normal and TM's normal bilaterally HEAD & SCALP: normocephalic and atraumatic NOSE: Abnormal external nose present nasal erythema (left) GENERAL EAR: hearing grossly impaired EXTERNAL EAR: Yes external ears normal TYMPANIC MEMBRANE: TM's normal bilaterally MOUTH: Normal oral and palatal mucosa present, lip normal and tongue normal THROAT: posterior oropharynx normal Neck/C-Spine: COMMON NORMALS: full ROM and no lymphadenopathy Chest: COMMONS NORMALS: normal inspection of the chest and normal palpation of entire chest wall Resp: COMMON NORMALS: normal respiratory effort and clear to auscultation bilaterally AUSCULTATION: clear to auscultation bilaterally Cardio: COMMON NORMALS: regular rate and regular rhythm RATE: regular rate RHYTHM: regular rhythm GI: COMMON NORMALS: Normal to inspection, nondistended, normoactive bowel sounds present, Soft to palpation and non-tender PALPATION: Yes Soft to palpation : COMMON NORMALS: Yes no CVA tenderness BLADDER/KIDNEY EXAM: Yes no CVA tenderness Back/Pelvis: COMMON NORMALS: no CVA tenderness Extremity: COMMON NORMALS: normal to inspection, full ROM and capillary refill normal GENERAL: Yes normal exam except as noted Neuro: COMMON NORMALS: patient oriented x3, CN's II-XII intact bilaterally, moves all extremities, no focal motor deficits, no sensory deficits noted, deep tendon reflexes 2+ bilaterally and gait normal SENSORIUM/ORIENTATION: Yes alert Psych: COMMON NORMALS: mental status grossly normal, Normal thought process present and cooperative THOUGHT PROCESS: Normal thought process present Skin: COMMON NORMALS: no rashes or lesions noted GENERAL SKIN EXAM: no rashes or lesions noted Course Vital Signs: Vital signs: Vital Signs Temperature 98.0 F 08/12/24 19:41 Pulse Rate 108 H 08/12/24 21:13 Respiratory Rate 16 08/12/24 21:13 Blood Pressure 133/75 08/12/24 21:13 Pulse Oximetry 97 08/12/24 21:13 Oxygen Delivery Me thod Room Air 08/12/24 19:41 MDM - Seizure MDM Narrative Medical decision making narrative: 33-year-old female returns ED for witnessed seizure. At bedside, she did appear postictal. Patient is now awake, alert, oriented. She does not want her potassium, magnesium supplements, or her Ativan. She just wants to be discharged home. Will go forward with discharging her home and follow-up closely with primary care. Patient given warnings regarding driving and continued evaluation in ER, however would like to be discharged home. Patient then consented to CT of head and neck. These are negative. Patient will be discharged home with the above concerns as noted. Lab Data Labs: Radiology Impressions Cervical Spine CT 08/12/24 19:56 IMPRESSION: No acute cervical spine fracture. Head CT 08/12/24 19:56 IMPRESSION: No acute intracranial abnormality. Laboratory Results Prolactin 48.03 ng/mL (4.8-23.3) H 08/12/24 17:15 All radiology interpretation(s) finalized by discharge ED provider radiology interpretation(s): no acute Discharge Plan Discharge Patient Disposition: Home Clinical Impression: Epileptic seizure Condition: Stable Prescriptions: No Action fluoxetine [Prozac] 40 mg capsule 40 mg PO DAILY Qty: 30 2RF gabapentin 300 mg capsule 600 mg PO QID 30 Days Qty: 240 3RF tramadol 50 mg tablet 50 mg PO Q4H PRN (Reason: Mild Pain (Scale Score 1-4)) topiramate 200 mg tablet 200 mg PO BID ondansetron 4 mg tablet,disintegrating 4 mg PO TID PRN (Reason: Nausea And Vomiting) hydrocodone-acetaminophen 5-325 mg tablet 1 tab PO Q6H PRN (Reason: pain) Qty: 30 0RF alprazolam 0.25 mg tablet 0.25 mg PO TID PRN (Reason: Anxiety) Discharge Orders: Discharge ED (Routine); Ordered 08/12/24 Ordered By: Kezia Monroy Referrals: Joaquin Mak MD [Primary Care Provider, Family Practice] Discharge Diet: Usual diet Discharge Activity: Resume usual activity Patient Instructions: Recurrent Seizures in Adults (ED), Patient Portal & Ben Instructions Activity Restrictions/Additional Instructions: Do not consume alcohol as it lowers seizure threshold Do not take tramadol, as it lowers seizure threshold Do not drive until you follow-up with neurologist and have clearance. You are not supposed to drive with a witnessed seizure for 6 months. Follow-up with your doctor regarding your seizures today. Print Language: [place] Coding Level of Care Code ED Senior Ui Software Engineer for Mark Berg
--- NOTE | 2024-08-12 19:56 | CTR_ITS ---
PROCEDURE INFORMATION: Exam: CT Head Without Contrast Exam date and time: 08/12/2024 8:18 PM Age: 33 years old Clinical indication: Injury or trauma; Fall; Blunt trauma (contusions or hematomas); Consciousness not specified; Additional info: Seizure, face planting from standing position TECHNIQUE: Imaging protocol: Computed tomography of the head without contrast. Radiation optimization: All CT scans at this facility use at least one of these dose optimization techniques: automated exposure control; mA and/or kV adjustment per patient size (includes targeted exams where dose is matched to clinical indication); or iterative reconstruction. COMPARISON: CT head wo con* [id number] 04/02/2024 9:57 AM RADIATION DOSE METRICS: Total DLP (mGy-cm): 1056.7 FINDINGS: Brain: No acute infarction, hemorrhage, mass, or extra-axial fluid collection is identified. No midline shift. Cerebral ventricles: No hydrocephalus. Paranasal sinuses: Paranasal sinuses are grossly clear. Mastoid air cells: Mastoid air cells are grossly clear. Bones: Calvarium appears intact. Soft tissues: Unremarkable. CT/CT head wo con* [id number] IMPRESSION: No acute intracranial abnormality.
--- NOTE | 2024-08-12 19:56 | CTR_ITS ---
PROCEDURE INFORMATION: Exam: CT Cervical Spine Without Contrast Exam date and time: 08/12/2024 8:18 PM Age: 33 years old Clinical indication: Injury or trauma; Fall; Blunt trauma; Additional info: Seizure, face planting from standing position TECHNIQUE: Imaging protocol: Computed tomography of the cervical spine without contrast. Radiation optimization: All CT scans at this facility use at least one of these dose optimization techniques: automated exposure control; mA and/or kV adjustment per patient size (includes targeted exams where dose is matched to clinical indication); or iterative reconstruction. COMPARISON: MR cervical spine wo/w [id number] 09/05/2023 8:04 AM RADIATION DOSE METRICS: Total DLP (mGy-cm): 178.5 FINDINGS: Bones: No acute fracture. There is discontinuity of the posterior ring of C1 at its junction with the right lateral mass, although well-corticated. This could reflect remote trauma or congenital variant. Normal alignment. Mild dorsal spondylosis at C3-C4 and C5-C6 with anterior osteophytosis at C6-C7. No severe spinal canal stenosis. No high-grade neural foraminal narrowing. Lungs: Lung apices are unremarkable. Soft tissues: Unremarkable. CT/CT cervical spin wo con* [id number] IMPRESSION: No acute cervical spine fracture.
[2024-08-12] MEDS: potassium chloride ER 20 mEq Tablet 40 MEQ PO (20:50)
[2024-08-12] MEDS: LORazepam 1 MG/0.5 ML injection 2 MG IM (20:50)
[2024-08-12] MEDS: magnesium oxide 400 mg tablet PO (20:50)
[2024-08-12 21:13] VITALS: BP 133/75; PULSE 108; RESP 16; O2SAT 97
[2024-08-12 22:51] LABS: Prolactin 48.03 ng/mL (4.8-23.3)
== END 2024-08-12 21:12 | disposition home or self-care (01) ==
PROVIDERS: Emergency Provider Physician Assistant; PCP Family Medicine
DX: G40.909 Epilepsy, unspecified, not intractable, without status epilepticus (principal)
CPT/HCPCS: 70450; 72125; 84146; 96372; 99284; J2060; J9999

== ENCOUNTER 2024-09-06 16:20 | Inpatient (IN) | payer MEDICAID, SELFPAY ==
[2024-09-06] VITALS (10 sets, daily range): BP systolic 119–150; BP diastolic 73–104; PULSE 87–118; RESP 16–18; TEMP 36.9; O2SAT 97–100; BMI 23.4
--- NOTE | 2024-09-06 16:25 | ED_ITS ---
HPI - Abdominal Pain General: Stated Complaint: pain kidney area Time Seen by Provider: 09/06/24 16:22 Related Data Home Medications ?Medication ?Instructions ?Recorded ?Confirmed alprazolam 0.25 mg tablet 0.25 mg PO TID PRN Anxiety 0 08/06/23 08/07/24 topiramate 200 mg tablet 200 mg PO BID 02/21/2408/07 tramadol 50 mg tablet 50 mg PO Q4H PRN Mild Pain ( Scale 02/21/24 08/07/24 Score 1-4) ondansetron 4 mg disintegrating 4 mg PO TID PRN Nausea And Vomiting 07/15/24 08/07/24 tablet Previous Rx's ?Medication ?Instructions ?Recorded hydrocodone 5 mg-acetaminophen 325 1 tab PO Q6H PRN pa in #30 tabs 07/16/24 mg tablet gabapentin 300 mg capsule 600 mg (2 x 300 mg) PO QID 3 0 days 08/11/24 #240 caps fluoxetine 40 mg capsule (Prozac) 40 mg PO DAILY #30 c aps 09/01/24 Allergies Allergy/AdvReac Type Severity Reaction Status Date / Time methylprednisolone Allergy Severe ALGY-Anaphy Verified 08/07/24 11:54 laxis Latex, Natural Rubber Allergy Intermediate rash, hives Verified 08/07/24 11:54 amoxicillin Allergy ALGY-Hives Verified 08/07/24 11:54 methotrexate AdvReac Intermediate migraines, Verified 08/07/24 11:54 N/V [facility] ED PFSH: Medical History (Updated 08/20/24 @ 00:00 by TRAN Cerrato) Bipolar disorder, unspecified Family history of colon cancer Bilateral pulmonary embolism Vapes nicotine containing substance Seizures Hx of migraines Ovarian mass, right Family history of psoriasis in father High risk medication use Inflammatory back pain Inflammatory arthritis Psychiatric care Other prison (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 Mosher at [facility] History of tubal ligation 12/2015- per Dr. Mosher at [facility] H/O removal of cyst [address] Mosher Family History Mother Stroke Hyperlipidemia Family history of thyroid problem Hypertension Cancer of tongue Father Degenerative disc disease Diabetes Unknown Breast cancer maternal great aunt Grandmother Ovarian cancer maternal Uterine cancer maternal Other Cancer Chronic kidney disease (CKD) Rheumatoid arthritis Denies family history of Lupus Social History Smoking and tobacco/nicotine status: never used tobacco/nicotine Second hand smoke exposure: No Alcohol intake: never Substance/Drug Use: never Discharge Plan Discharge Condition: Stable Prescriptions: No Action gabapentin 300 mg capsule 600 mg PO QID 30 Days Qty: 240 3RF fluoxetine [Prozac] 40 mg capsule 40 mg PO DAILY Qty: 30 2RF tramadol 50 mg tablet 50 mg PO Q4H PRN (Reason: Mild Pain (Scale Score 1-4)) topiramate 200 mg tablet 200 mg PO BID ondansetron 4 mg tablet,disintegrating 4 mg PO TID PRN (Reason: Nausea And Vomiting) hydrocodone-acetaminophen 5-325 mg tablet 1 tab PO Q6H PRN (Reason: pain) Qty: 30 0RF alprazolam 0.25 mg tablet 0.25 mg PO TID PRN (Reason: Anxiety) Referrals: Joaquin Mak MD [Primary Care Provider, Family Practice] Print Language: French Coding Level of Care Code ED Continuous Pickling Line Pickler for Mark Berg
--- OUTSIDE RECORDS SUMMARY | 2024-09-06 16:26 | XMS_ITS | Encounter Summary ---
Author Organization [facility] Address [address] [place] [address] Care Team Providers Care Event Security Officer Name Role Phone Joaquin Mak MD Primary Care Provider [phone] Encounter Details Date Type Department Care Team (Late st Contact Info) Description 09/02/2024 External Device Data [facility] ABSTRACTION Provider, Abstract NO ADDRESS ON FILE Social History Tobacco Use Types Packs/Day Years Used Date Smoking Tobacco: Former Cigarettes Q uit: 02/19/2018 Passive Smoke Exposure: Current Smokeless Tobacco: Never Alcohol Use Standard Drinks/Week Comments Not Currently 0 (1 standard drink = 0.6 oz pur e alcohol) Comments No Sex and Gender Information Value Date Recorded Sex Assigned at Not on file 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
--- OUTSIDE RECORDS SUMMARY | 2024-09-06 16:26 | XMS_ITS | Clinical Summary ---
Author Organization [facility] Address [address] [place] [address] Care Team Providers Care Manager Consumer Insights Name Role Phone Joaquin Mak MD Primary Care Provider [phone] Allergies Active Allergy Reactions Criticality Noted Date [...] Comments Blood Pressure 119/75 12/29/2019 3:14 PM ATHLETIC TRAINER Pulse 75 12/29/2019 3:14 PM ATHLETIC TRAINER Temperature 37.2 C (98.9 F) 12/29/2019 2:03 PM ATHLETIC TRAINER Respiratory Rate 18 12/29/2019 3:14 PM ATHLETIC TRAINER Oxygen Saturation 99% 12/29/2019 3:14 PM ATHLETIC TRAINER Inhaled Oxygen Concentration - - Weight 47.6 kg (105 lb) 12/29/2019 2:03 PM ATHLETIC TRAINER Height 149.9 cm (4' 11 ) 12/29/2019 2:03 PM ATHLETIC TRAINER Body Mass Index 21.21 12/29/2019 2:03 PM ATHLETIC TRAINER Plan of Treatment Health Maintenance Due Date Last Done Comments HPV VACCINES (1 - 3-dose series) 2004 DTAP/TDAP/TD VACCINES (1 - Tdap) 2008 HEPATITIS B VACCINES (1 of 3 - 19+ 3-dose series) 09/19 HPV/Cotest (21-29) 2010 CERVICAL CANCER SCREENING 10/03/2019 HPV/Cotest (30-65) 10/03/2019 PAP SMEAR 10/03/2019 INFLUENZA VACCINE (#1) 2024 Insurance Care Teams Manager Consumer Insights Relationship Specialty Start Date End Date Joaquin Mak MD [address] [id number] PCP - General Family Practice 12/29/19
--- OUTSIDE RECORDS SUMMARY | 2024-09-06 16:26 | XMS_ITS | Clinical Summary ---
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 Gender Identity Not on file Sexual Orientation Not on file Last Filed Vital Signs Vital Sign Reading Time Taken Comments Blood Pressure 92/54 05/17/2023 10:35 AM CDT Pulse 75 12/29/2019 3:14 PM TECHNICAL ADJUSTER Temperature 37.2 C (98.9 F) 12/29/2019 2:03 PM TECHNICAL ADJUSTER Respiratory Rate 18 12/29/2019 3:14 PM TECHNICAL ADJUSTER Oxygen Saturation - - Inhaled Oxygen Concentration [...] PAP SMEAR 10/03/2019 INFLUENZA VACCINE (#1) 2024 DTAP/TDAP/TD VACCINES (2 - T d or Tdap) 09/11/2032 09/11/2022 HPV VACCINES Aged Out No longer eligi ble based on patient's age to complete this topic Insurance [facility] [employer] MEDICAID Care Teams Web Programmer Relationship Specialty Start Date End Date Joaquin Mak MD [address] [address] PCP - General Family Practice 12/29/19
--- OUTSIDE RECORDS SUMMARY | 2024-09-06 16:26 | XMS_ITS | Encounter Summary ---
Author Organization [facility] Address 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
--- NOTE | 2024-09-06 16:39 | CTR_ITS ---
PROCEDURE INFORMATION: Exam: CT Abdomen And Pelvis With Contrast Exam date and time: 09/06/2024 5:21 PM Age: 33 years old Clinical indication: Abdominal pain; Flank; Left; Prior surgery; Surgery date: 6+ months; Surgery type: Gb; Additional info: Left flank pain, abd pain, n/v TECHNIQUE: Imaging protocol: Computed tomography of the abdomen and pelvis with contrast. Axial, coronal and sagittal reformatted images were created and reviewed. Radiation optimization: All CT scans at this facility use at least one of these dose optimization techniques: automated exposure control; mA and/or kV adjustment per patient size (includes targeted exams where dose is matched to clinical indication); or iterative reconstruction. Contrast material: OMNIPAQUE 350; Contrast volume: 80 ml; Contrast route: INTRAVENOUS (IV); COMPARISON: CT abdomen pelvis w con* [id number] 06/07/2024 6:13 PM RADIATION DOSE METRICS: Total DLP (mGy-cm): 320.3 FINDINGS: Liver: Unremarkable. Gallbladder and biliary ducts: Status post cholecystectomy. No biliary ductal dilatation. Pancreas: Unremarkable. Spleen: Unremarkable. Adrenal glands: Normal. No mass. Kidneys and ureters: No mass. No radiodense calculi. No hydronephrosis. Stomach and bowel: Moderate amount of retained stool in the colon. No obstruction. No bowel wall thickening. No pneumatosis. Appendix: Appendix not identified with certainty but no right lower quadrant inflammatory change to suggest acute appendicitis. Intraperitoneal space: Trace nonspecific free pelvic fluid, likely physiologic. No organized fluid collection. No free air. Vasculature: Unremarkable. No aneurysm. Lymph nodes: No pathologically enlarged lymph nodes. Urinary bladder: Unremarkable as visualized. Reproductive: Status post hysterectomy. Probable involuting left ovarian corpus luteal cyst. Bones/joints: No acute osseous abnormality. Soft tissues: Unremarkable. CT/CT abdomen pelvis w con* [id number] IMPRESSION: 1. Mild circumferential urinary bladder wall thickening, possibly secondary to underdistention. Correlate with urinalysis to exclude cystitis. 2. Probable involuting left ovarian corpus luteal cyst. 3. Additional findings, as above.
--- NOTE | 2024-09-06 16:45 | W.ED.FEMALGU ---
HPI - Female Genitourinary General: Chief complaint: Urogenital-Female Stated complaint: pain kidney area Time Seen by Provider: 09/06/24 16:22 Source: patient Mode of arrival: ambulatory Limitations: no limitations History of Present Illness: Patient is a 33-year-old female with multiple prior visits here to the emergency department who is reporting left flank pain for the past week. States this has been constant, she has noted an increase in her urination. States that she has also been running fevers and has been nauseous with vomiting. No blood in her urine, but does state that it has appeared more cloudy. She is currently rating the pain as a 15/10, she has had it in the past and notes a history of pyelonephritis. No history of kidney stones. No history of chronic kidney disease. She does state that she was diagnosed with a mass on her left adnexa. No other symptoms reported. No cough, shortness of breath, or chest pain. MD elicited complaint: back pain and flank pain Pertinent past history: pyelonephritis Onset (ago): week(s) Severity: severe Severity scale (1-10): >10 Consistency: constant Vaginal discharge: none Vaginal bleeding: none Associated symptoms: Reports nausea; Deny abdominal pain or headache(s) Patient : No Related Data Home Medications ?Medication ?Instructions ?Recorded ?Confirmed alprazolam 0.25 mg tablet 0.25 mg PO TID PRN Anxiety 08/06/23 08/07/24 topiramate 200 mg tablet 200 mg PO BID 02/21/24 08/07/24 tramadol 50 mg tablet 50 mg PO Q4H PRN Mild Pain (Scale 02/21/24 08/07/24 Score 1-4) ondansetron 4 mg disintegrating 4 mg PO TID PRN Nausea And Vomiting 07/15/24 08/07/24 tablet Previous Rx's ?Medication ?Instructions ?Recorded hydrocodone 5 mg-acetaminophen 325 1 tab PO Q6H PRN pain #30 tabs 07/16/24 mg tablet gabapentin 300 mg capsule 600 mg (2 x 300 mg) PO QID 30 days 08/11/24 #240 caps fluoxetine 40 mg capsule (Prozac) 40 mg PO DAILY #30 caps 09/01/24 Allergies Allergy/AdvReac Type Severity Reaction Status Date / Time methylprednisolone Allergy Severe ALGY-Anaphy Verified 08/07/24 11:54 laxis Latex, Natural Rubber Allergy Intermediate rash, hives Verified 08/07/24 11:54 amoxicillin Allergy ALGY-Hives Verified 08/07/24 11:54 methotrexate AdvReac Intermediate migraines, Verified 08/07/24 11:54 N/V Review of Systems General: Reports: 10 or more systems reviewed and unremarkable except in HPI and below Const: Reports: fever(s); Denies: chills, change in appetite, change in weight or diaphoresis ENMT: Denies: throat pain or hoarseness Card: Denies: chest pain, palpitations or lightheadedness Resp: Denies: dyspnea, productive cough or wheezing GI: Reports: nausea and vomiting; Denies: abdominal pain, diarrhea, constipation, bloating, change in stool character or hematochezia : Reports: flank pain; Denies: difficulty voiding, dysuria, urinary frequency or urinary urgency Musc: Denies: neck pain or back pain Skin/Breast: Denies: rash or new lesions Neuro: Denies: headache(s) or dizziness PFSH ED PFSH: Medical History Bipolar disorder, unspecified Family history of colon cancer Bilateral pulmonary embolism Vapes nicotine containing substance Seizures Hx of migraines Ovarian mass, right Family history of psoriasis in father High risk medication use Inflammatory back pain Inflammatory arthritis Psychiatric care 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 Mosher at [facility] History of tubal ligation 12/2015- per Dr. Mosher at [facility] H/O removal of cyst [address] Mosher Family History Mother Stroke Hyperlipidemia Family history of thyroid problem Hypertension Cancer of tongue Father Degenerative disc disease Diabetes Unknown Breast cancer maternal great aunt Grandmother Ovarian cancer maternal Uterine cancer maternal Other Cancer Chronic kidney disease (CKD) Rheumatoid arthritis Denies family history of Lupus Social History Smoking and tobacco/nicotine status: never used tobacco/nicotine Second hand smoke exposure: No Alcohol intake: never Substance/Drug Use: never Physical Exam Const: COMMON NORMALS: no acute distress, average body habitus, patient oriented x3, no limitations, healthy appearing, alert and well nourished GENERAL APPEARANCE: cooperative and comfortable ORIENTATION/CONSCIOUSNESS: Yes awake HENMT: COMMON NORMALS: normocephalic, atraumatic, hearing grossly normal bilaterally, external ears normal, Normal external nose present, Normal nasal mucous membranes and turbinates present and moist oral mucous membranes HEAD & SCALP: normocephalic and atraumatic NOSE: Normal external nose present and Normal nasal mucous membranes and turbinates present EXTERNAL EAR: Yes external ears normal Eye: COMMON NORMALS: Equal, round and reactive pupils present, EOMs intact bilaterally, conjunctivae normal and normal visual white by confrontation CONJUNCTIVA: Yes conjunctivae normal PUPIL: Yes Equal, round and reactive pupils present Neck/C-Spine: COMMON NORMALS: full ROM, supple, no meningeal signs and no JVD Resp: COMMON NORMALS: normal respiratory effort, No retractions, No use of accessory muscles and clear to auscultation bilaterally AUSCULTATION: clear to auscultation bilaterally, no crackles, no rales, no rhonchi and no wheezes Cardio: COMMON NORMALS: no JVD, regular rate, regular rhythm, S1 normal heart sound present, S2 normal heart sound present, No gallops present (Cardio), No clicks present (Cardio), No murmurs present (Cardio), No rub (Cardio) and Peripheral pulses 2+ throughout RATE: regular rate RHYTHM: regular rhythm HEART SOUNDS: S1 normal heart sound present and S2 normal heart sound present PERIPHERAL PULSES: Peripheral pulses 2+ throughout GI: COMMON NORMALS: Normal to inspection, nondistended, normoactive bowel sounds present, Soft to palpation, No hepatosplenomegaly present and no masses AUSCULTATION: Yes normoactive bowel sounds PALPATION: Yes Soft to palpation, Yes Tenderness to palpation present (GI) (diffuse), No Guarding due to palpation present (GI), No Rigid due to palpation and Yes No hepatosplenomegaly present RECTAL EXAM: deferred : BLADDER/KIDNEY EXAM: Yes CVA tenderness on the left Back/Pelvis: GENERAL BACK: Yes CVA tenderness Extremity: COMMON NORMALS: normal to inspection and full ROM Neuro: COMMON NORMALS: patient oriented x3, moves all extremities, no focal motor deficits and no sensory deficits noted SENSORIUM/ORIENTATION: Yes alert MENINGEAL SIGNS: Yes no meningeal signs Psych: COMMON NORMALS: mental status grossly normal, cooperative and speech normal SPEECH: Yes normal speech Skin: COMMON NORMALS: no rashes or lesions noted GENERAL SKIN EXAM: no rashes or lesions noted Course Vital Signs: Vital signs: Vital Signs Temperature 98.5 F 09/06/24 16:21 Pulse Rate 108 H 09/06/24 20:59 Respiratory Rate 18 09/06/24 20:59 Blood Pressure 141/102 09/06/24 20:59 Pulse Oximetry 98 09/06/24 20:59 Oxygen Delivery Me thod Room Air 09/06/24 20:59 MDM - Female Medical Decision Making This patient presented to the emergency department with a week of left flank pain, reported to me a history of pyelonephritis and stating that she was having similar symptoms. Positive CVA tenderness on exam as well as diffuse abdominal tenderness. She later noted to me that she has been controlling her pain by taking 1.5 g of Tylenol every 4 hours consistently for the past week. Because of this, on CMP there was significant elevation of her AST and ALT, consistent with hepatocellular injury from Tylenol toxicity. Patient confirmed to me that this was entirely accidental and this was not an intentional overdose. Her Tylenol level was 66.9, she was started on 150 of NAC first dose. Evidence of UTI with her urinalysis however her CT was overall unremarkable. The rest of her labs were within normal limits, her adjusted calcium was normal. No evidence of an acute kidney injury, and patient did not appear encephalopathic and overall has been stable throughout ED course. Spoke with Dr. Snow, hospitalist, who agrees to accept the patient. She will go to the ICU, informed patient of this plan and all other questions and concerns addressed. Lab Data 09/06/24 17:35 09/06/24 17:35 Radiology Impressions Abdomen/Pelvis CT 09/06/24 16:39 IMPRESSION: 1. Mild circumferential urinary bladder wall thickening, possibly secondary to underdistention. Correlate with urinalysis to exclude cystitis. 2. Probable involuting left ovarian corpus luteal cyst. 3. Additional findings, as above. Laboratory Results WBC 4.56 10^3/uL (3.29-11.43) 09/06/24 17:35 RBC 3.33 10^6/uL (3.85-5.65) L 09/06/24 17:35 Hgb 8.90 g/dL (11.27-16.99) L 09/06/24 17:35 Hct 29.6 % (36-47) L 09/06/24 17:35 MCV 88.9 fl (85-98) 09/06/24 17:35 MCH 26.7 pg (27-33) L 09/06/24 17:35 MCHC 30.1 g/dL (30-55) 09/06/24 17:35 RDW 16.0 % (12.1-15.1) H 09/06/24 17:35 Plt Count 295 10^3/cmm (157-399) 09/06/24 17:35 MPV 10.5 fL (7.4-10.4) H 09/06/24 17:35 Neut % (Auto) 71.5 % 09/06/24 17:35 Lymph % (Auto) 18.2 % 09/06/24 17:35 [place] % (Auto) 6.8 % 09/06/24 17:35 Eos % (Auto) 2.0 % 09/06/24 17:35 Baso % (Auto) 1.3 % 09/06/24 17:35 Neut # (Auto) 3.26 10^3/uL (1.8-7.7) 09/06/24 17:35 Lymph # (Auto) 0.8 10^3/uL (0.8-4.8) 09/06/24 17:35 [place] # (Auto) 0.3 10^3/uL (0.2-0.9) 09/06/24 17:35 Eos # (Auto) 0.1 10^3/uL (0.0-0.8) 09/06/24 17:35 Baso # (Auto) 0.1 10^3/uL (0.0-0.1) 09/06/24 17:35 Nucleated RBC % (auto) 0 % 09/06/24 17:35 Nucleated RBCs # 0.0 /100WBC 09/06/24 17:35 PT 15.90 SECONDS (12.1-14.9) H 09/06/24 17:35 INR 1.19 (0.8-1.2) 09/06/24 17:35 Sodium 133 mmol/L (136-145) L 09/06/24 17:35 Potassium 3.9 mmol/L (3.5-5.1) 09/06/24 17:35 Chloride 102 mmol/L (98-107) 09/06/24 17:35 Carbon Dioxide 21 mmol/L (22-29) L 09/06/24 17:35 Anion Gap 13.9 (5-19) 09/06/24 17:35 BUN 7 mg/dL (6-20) 09/06/24 17:35 Creatinine 0.6 mg/dL (0.5-0.9) 09/06/24 17:35 GFR Calculation 114.4 mL/min (90-130) 09/06/24 17:35 Glucose 87 mg/dL (65-115) 09/06/24 17:35 Calculated Osmolality 273 mOsm/kg (285-295) L 09/06/24 17:35 Lactic Acid 1.1 mmol/L (0.5-2.2) 09/06/24 17:35 Calcium 7.8 mg/dL (8.5-10.5) L 09/06/24 17:35 Magnesium 1.8 mg/dL (1.7-2.3) 09/06/24 17:35 Total Bilirubin 0.6 mg/dL (0.15-1.2) 09/06/24 17:35 AST 1928 U/L (0-32) H 09/06/24 17:35 ALT 2027 U/L (0-33) H 09/06/24 17:35 Alkaline Phosphatase 108 U/L (35-105) H 09/06/24 17:35 Total Protein 5.2 g/dL (6.6-8.7) L 09/06/24 17:35 Albumin 3.1 g/dL (3.5-5.2) L 09/06/24 17:35 Globulin 2.1 g/dL (1.3-4.6) 09/06/24 17:35 Lipase 24 U/L (13-60) 09/06/24 17:35 HCG, Qual Negative (Negative) 09/06/24 16:31 Urine Color Yellow (Yellow) 09/06/24 16:31 Urine Appearance Clear (CLEAR) 09/06/24 16:31 Urine pH 5.5 (5-7) 09/06/24 16:31 Ur Specific [place] 1.031 (1.005-1.030) H 09/06/24 16:31 Urine Protein 1+ (Negative) A 09/06/24 16:31 Urine Glucose (UA) Negative (Normal) 09/06/24 16:31 Urine Ketones 1+ (Negative) H 09/06/24 16:31 Urine Blood Negative (Negative) 09/06/24 16:31 Urine Nitrate Negative (Negative) 09/06/24 16:31 Urine Bilirubin Negative (Negative) 09/06/24 16:31 Urine Urobilinogen 1.0 mg/dL (Negative) 09/06/24 16:31 Ur Leukocyte Esterase 1+ (Negative) A 09/06/24 16:31 Urine RBC 3-5 /hpf (0-2) 09/06/24 16:31 Urine WBC 21-50 /hpf (0-5) H 09/06/24 16:31 Ur Squamous Epith Cells 6-10 /hpf (0-5) 09/06/24 16:31 Amorphous Sediment Not Reportable 09/06/24 16:31 Urine Bacteria Trace /hpf (NONE) 09/06/24 16:31 Hyaline Casts 3.30 /lpf 09/06/24 16:31 Urine Opiates Screen Positive ng/mL (Negative) H 09/06/24 16:31 Acetaminophen 66.9 ug/mL (10-30) H 09/06/24 17:35 Ur Barbiturates Screen Negative ng/mL (Negative) 09/06/24 16:31 Ur Phencyclidine Scrn Negative ng/mL (Negative) 09/06/24 16:31 Ur Amphetamines Screen Negative ng/mL (Negative) 09/06/24 16:31 U Benzodiazepines Scrn Positive ng/mL (Negative) H 09/06/24 16:31 Urine Cocaine Screen Negative ng/mL (Negative) 09/06/24 16:31 U Marijuana (THC) Screen Negative ng/mL (Negative) 09/06/24 16:31 All radiology interpretation(s) finalized by discharge Discharge Plan Discharge Patient Disposition: Admitted As Inpatient Admit Provider: Woody Snow Clinical Impression: Acute liver disease, Urinary tract infection, Tylenol toxicity Condition: Stable Coding Level of Care Code ED Flap Lining Binder for Mark Berg
[2024-09-06 16:54] LABS: Glucose Urine UA Negative (Normal); Nitrate Urine Negative (Negative)
[2024-09-06 16:59] LABS: Add Urine Microscopic? YES; HCG Qualitative Urine. Negative (Negative)
[2024-09-06] MEDS: ondansetron 2 mg/ML SDV 2 mL 4 MG IVP ×2 (17:00→21:08)
[2024-09-06] MEDS: morphine 4 mg/mL SDV 1 mL IVP (17:00)
[2024-09-06 17:06] LABS: Specific Gravity, Urine 1.031 (1.005-1.030)
[2024-09-06] MEDS: iohexol 350 mg/mL 500 mL Btl (per mL) IV (17:24)
[2024-09-06 17:41] LABS: Hematocrit 29.6 % (36-47); Hemoglobin 8.90 g/dL (11.27-16.99); Mean Corpuscular HGB Conc 30.1 g/dL (30-55); Mean Corpuscular Hemoglobin 26.7 pg (27-33); Mean Corpuscular Volume 88.9 fl (85-98); Nucleated Red Blood Cells % 0 %; Platelet Count 295 10^3/cmm (157-399); Red Blood Count 3.33 10^6/uL (3.85-5.65); White Blood Count 4.56 10^3/uL (3.29-11.43)
[2024-09-06 18:00] LABS: Albumin Level 3.1 g/dL (3.5-5.2); Alkaline Phosphatase 108 U/L (35-105); Anion Gap 13.9 (5-19); Blood Urea Nitrogen 7 mg/dL (6-20); Calcium 7.8 mg/dL (8.5-10.5); Carbon Dioxide 21 mmol/L (22-29); Chloride 102 mmol/L (98-107); Creatinine Clr Calc Pharmacy 109.7405; Globulin 2.1 g/dL (1.3-4.6); Glucose 87 mg/dL (65-115); Lipase 24 U/L (13-60); Osmolality Calculated 273 mOsm/kg (285-295); Potassium 3.9 mmol/L (3.5-5.1); Sodium 133 mmol/L (136-145); Total Protein 5.2 g/dL (6.6-8.7)
[2024-09-06 18:13] LABS: Alanine Aminotransferase 2027 U/L (0-33)
[2024-09-06 18:18] LABS: Aspartate Amino Transferase 1928 U/L (0-32)
[2024-09-06 18:32] LABS: Magnesium 1.8 mg/dL (1.7-2.3)
[2024-09-06 18:33] LABS: Lactic Sepsis W/Reflex 1.1 mmol/L (0.5-2.2)
[2024-09-06] MEDS: morphine 4 mg/mL SDV 1 mL 2 MG IVP (18:41)
[2024-09-06 18:57] LABS: Acetaminophen 66.9 ug/mL (10-30)
[2024-09-06 19:12] LABS: INR 1.19 (0.8-1.2); Prothrombin Time 15.90 SECONDS (12.1-14.9)
[2024-09-06] MEDS: DEXTROSE 5% IV (19:42)
[2024-09-06] MEDS: ACETYLCYSTEINE IV (19:42)
--- NOTE | 2024-09-06 21:13 | PC.NURSE ---
[facility] 3 bed in for clean request, will call for report once bed status is near clean.
--- NOTE | 2024-09-06 21:21 | P.HP_ITS ---
Providers/Chief Complaint 2 Primary Care Provider: Joaquin Mak MD Chief Complaint: pain kidney area History of Present Illness Mary Nesbitt is a 33 year old patient with a history of pulmonary embolism, seizure disorder (on Topamax), migraine, bipolar disorder, anxiety, endometriosis, inflammatory arthritis, inflammatory back pain, and prior cholecystectomy who presented to the emergency department with approximately 1.5 weeks of left flank pain, fever, nausea, and vomiting. She reports self-treating presumed kidney infection with up to 3,500 mg of acetaminophen daily over the past week. Initial ED work-up revealed marked transaminitis (AST 1,928 U/L; ALT 2,027 U/L) with a detectable acetaminophen level of 66.9 ?g/mL, normal total bilirubin, and normal INR. Urinalysis showed 21?50 WBCs and trace bacteria; CT abdomen/pelvis demonstrated mild bladder wall thickening and a probable involuting left ovarian corpus luteal cyst. She denies current alcohol use (stopped ~1 month ago), denies recreational drugs, and vapes. Current home medications include Topamax 400 mg total daily (dose increased 3?4 months ago), hydrocodone, gabapentin, fluoxetine, alprazolam, Eliquis for prior PE, and intermittent Zyrtec/Ondansetron. No recent dose change besides Topamax. She was given N-acetylcysteine infusion in the ED; antibiotics for UTI had not yet been started at the time of interview. She requests antiemetic therapy for persistent nausea. Review of Systems 2 Const: Reports: fever(s), change in appetite and malaise; Denies: chills or body aches ENMT: Denies: throat pain Card: Denies: chest pain, edema, pre-syncope or dyspnea on exertion Resp: Denies: dyspnea, productive cough, change in phlegm color or hemoptysis GI: Reports: nausea and vomiting; Denies: abdominal pain, diarrhea, constipation, hematochezia or melena : Reports: flank pain; Denies: urinary frequency or hematuria Musc: Denies: back pain, joint swelling or joint redness Skin/Breast: Denies: rash or new lesions Neuro: Denies: headache(s) or confusion Medications/Allergies Home Medications ?Medication ?Instructions ?Recorded ?Confirmed ?Last Taken ?Type alprazolam 0.25 mg tablet 0.25 mg PO TID PRN Anxiety 0 08/06/23 08/07/24 07/14/24 History topiramate 200 mg tablet 200 mg PO BID 02/21/2408/0707/26/24 History tramadol 50 mg tablet 50 mg PO Q4H PRN Mild Pain ( Scale 02/21/24 08/07/24 07/14/24 History Score 1-4) ondansetron 4 mg disintegrating 4 mg PO TID PRN Nausea And Vomiting 07/15/24 08/07/24 07/14/24 History tablet hydrocodone 5 mg-acetaminophen 325 1 tab PO Q6H PRN pa in #30 tabs 07/16/24 08/07/24 Unknown Rx mg tablet gabapentin 300 mg capsule 600 mg (2 x 300 mg) PO QID 3 0 days 08/11/24 Unknown Rx #240 caps fluoxetine 40 mg capsule (Prozac) 40 mg PO DAILY #30 c aps 09/01/24 Unknown Rx Allergies Allergy/AdvReac Type Severity Reaction Status Date / Time methylprednisolone Allergy Severe ALGY-Anaphy Verified 08/07/24 11:54 laxis Latex, Natural Rubber Allergy Intermediate rash, hives Verified 08/07/24 11:54 amoxicillin Allergy ALGY-Hives Verified 08/07/24 11:54 methotrexate AdvReac Intermediate migraines, Verified 08/07/24 11:54 N/V PFSH Acute 2 PFSH: Medical History Bipolar disorder, unspecified Family history of colon cancer Bilateral pulmonary embolism Vapes nicotine containing substance Seizures Hx of migraines Ovarian mass, right Family history of psoriasis in father High risk medication use Inflammatory back pain Inflammatory arthritis Psychiatric care 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 Mosher at [facility] History of tubal ligation 12/2015- per Dr. Mosher at [facility] H/O removal of cyst [address] Mosher Family History Mother Stroke Hyperlipidemia Family history of thyroid problem Hypertension Cancer of tongue Father Degenerative disc disease Diabetes Unknown Breast cancer maternal great aunt Grandmother Ovarian cancer maternal Uterine cancer maternal Other Cancer Chronic kidney disease (CKD) Rheumatoid arthritis Denies family history of Lupus Social History Smoking and tobacco/nicotine status: never used tobacco/nicotine Second hand smoke exposure: No Alcohol intake: never Substance/Drug Use: never Vitals/I&O/Wt Last Vital Signs Temp 98.5 F 09/06/24 16:21 Pulse 108 H 09/06/24 20:59 Resp 18 09/06/24 20:59 BP 141/102 09/06/24 20:59 Pulse Ox 98 09/06/24 20:59 O2 Del Method Room Air 09/06/24 20:59 09/06/24 09/06/24 09/06/24 06:59 14:59 22:59 Intake Total 0 / 0 Balance 0 / 0 Weight last 48 hrs Weight 52.617 kg Physical Exam 2 Narrative: Accompanied by family. Nauseated, vomiting. Const: COMMON NORMALS: patient oriented x3 and alert GENERAL APPEARANCE: c ooperative ORIENTATION/CONSCIOUSNESS: Yes awake HENMT: COMMON NORMALS: oropharynx normal Neck/C-Spine: COMMON NORMALS: no JVD Resp: COMMON NORMALS: normal respiratory effort and clear to auscultation bilaterally AUSCULTATION: clear to auscultation bilaterally Cardio: COMMON NORMALS: no JVD, regular rhythm, S1 normal heart sound present, S2 normal heart sound present and No murmurs present (Cardio) RHYTHM: regular rhythm HEART SOUNDS: S1 normal heart sound present and S2 normal heart sound present GI: COMMON NORMALS: Normal to inspection, nondistended, normoactive bowel sounds present, Soft to palpation and non-tender PALPATION: Yes Soft to palpation Extremity: COMMON NORMALS: no joint enlargement and no pedal edema Neuro: COMMON NORMALS: patient oriented x3 and moves all extremities S ENSORIUM/ORIENTATION: Yes alert Skin: COMMON NORMALS: no rashes or lesions noted GENERAL SKIN EXAM: no rashes or lesions noted Data 09/06/24 17:35 09/06/24 17:35 A&P Assessment and plan 1. Acute liver disease: Severe acute hepatotoxic liver injury with severe transaminitis likely acetaminophen-induced liver injury : Marked AST/ALT elevations (1,928/2,027) with detectable acetaminophen level 66.9 ?g/mL and history of high daily Tylenol intake; Topamax hepatotoxicity also considered. She did take ibuprofen transiently as well instead of acetaminophen. Reviewed vitals, CBC, INR, CMP, lipase, beta-hCG, UA, acetaminophen level, CT abdomen pelvis, ED provider note, discussed with ED provider. - Continue N-acetylcysteine infusion - Hold all acetaminophen products - Trend liver enzymes and INR - Check acute hepatitis panel - Check ammonia level - Monitor mental status for acute liver failure - Consider transfer to higher-level care if enzymes continue to rise or mental status changes indicative of acute liver failure 2. Urinary tract infection: Urinary tract infection / possible early ascending UTI/pyelonephritis : UA positive for WBCs and bacteria; left flank pain and fever; CT shows bladder wall thickening. - Initiate ceftriaxone - Send urine culture and adjust antibiotics per sensitivities 3. Nausea & vomiting: Persistent nausea worsened after medications. - Ondansetron 4 mg IV/PO q4h PRN - PPI for possible NSAID-related gastritis - Allow ice chips ? clear liquids as tolerated For dehydration will give IV fluids, monitor for risk of fluid overload.- Plan: Seizure disorder on Topamax (dose recently increased) : On Topamax 400 mg daily; potential contributor to liver injury. Being managed by her PCP Dr. Mak, formerly following with Dr. Ford. - Check topiramate level - Reduce Topamax dose to 150 mg BID. Monitor for risk of breakthrough seizure. - Evaluate need for alternative antiepileptic if liver enzymes worsen. Consider further taper of Topamax versus resumption of usual dosing depending on liver parameters. Chronic alk phos elevation: Will benefit from follow-up and additional workup. Left flank pain : Symptom likely related to UTI/pyelonephritis. - Treat underlying infection (see above) - Analgesia as needed avoiding hepatotoxic agents History of PE: Continue anticoagulation. At home was on Eliquis we will switch over to Lovenox here with liver dysfunction. Reassess platelets. Monitor for risk of bleeding. PDMP PDMP Reviewed: Not Reviewed Attestations 2 Medical Necessity Statement*: Admission over 2 midnights anticipated for assessment management of acute liver injury suspected acetaminophen toxicity, possible other toxicity, additional workup and treatment as above, UTI, nausea and vomiting unable to tolerate oral intake, with dehydration, additional comorbidities as above in a lady with underlying seizure disorder on Topamax. Diagnoses Acute liver disease K76.9 Urinary tract infection N39.0 Nausea & vomiting R11.2
[2024-09-06 21:35] LABS: PCP Screen Urine Negative (Negative)
[2024-09-06] MEDS: pantoprazole 40 mg SDV IVP (22:21)
[2024-09-06] MEDS: cefTRIAXone 1,000 mg SDV 1000 MG IVP (22:21)
[2024-09-06 22:33] LABS: Albumin Level 3.3 g/dL (3.5-5.2); Alkaline Phosphatase 113 U/L (35-105); Globulin 1.9 g/dL (1.3-4.6); Total Protein 5.2 g/dL (6.6-8.7)
[2024-09-06 22:44] LABS: Alanine Aminotransferase 2134 U/L (0-33); Aspartate Amino Transferase 2024 U/L (0-32)
[2024-09-06 22:50] LABS: Ammonia 63 umol/L (11-51)
[2024-09-06 23:03] LABS: Hepatitis A Antibody IgM Non-Reactive (Nonreactive); Hepatitis B Surface Antigen Non-Reactive (Nonreactive)
[2024-09-07] VITALS (43 sets, daily range): BP systolic 106–147; BP diastolic 72–101; PULSE 0–110; RESP 14–23; TEMP 36.7–36.9; O2SAT 95–100
[2024-09-07] MEDS: HYDROmorphone 0.5 MG/0.5 ML INJ IVP ×6 (01:37→22:33)
[2024-09-07 04:18] LABS: Hematocrit 32.8 % (36-47); Hemoglobin 10.10 g/dL (11.27-16.99); Mean Corpuscular HGB Conc 30.8 g/dL (30-55); Mean Corpuscular Hemoglobin 26.9 pg (27-33); Mean Corpuscular Volume 87.2 fl (85-98); Nucleated Red Blood Cells % 0 %; Platelet Count 320 10^3/cmm (157-399); Red Blood Count 3.76 10^6/uL (3.85-5.65); White Blood Count 6.49 10^3/uL (3.29-11.43)
[2024-09-07 04:42] LABS: Albumin Level 3.5 g/dL (3.5-5.2); Alkaline Phosphatase 150 U/L (35-105); Anion Gap 16.3 (5-19); Blood Urea Nitrogen 3 mg/dL (6-20); Calcium 8.9 mg/dL (8.5-10.5); Carbon Dioxide 21 mmol/L (22-29); Chloride 104 mmol/L (98-107); Creatinine Clr Calc Pharmacy 107.4109; Globulin 2.6 g/dL (1.3-4.6); Glucose 82 mg/dL (65-115); Magnesium 2.0 mg/dL (1.7-2.3); Osmolality Calculated 280 mOsm/kg (285-295); Potassium 4.3 mmol/L (3.5-5.1); Sodium 137 mmol/L (136-145); Total Protein 6.1 g/dL (6.6-8.7)
[2024-09-07 04:55] LABS: Alanine Aminotransferase 3880 U/L (0-33)
[2024-09-07 04:56] LABS: Aspartate Amino Transferase 3540 U/L (0-32)
--- NOTE | 2024-09-07 08:59 | P.PN_ITS ---
Subjective 2 Subjective: 33-year-old female admitted wi th prolonged Tylenol overdose. She had been in alf on August 15 and her about that time she started taking Tylenol for fever related to UTI and thought she had pyelonephritis. She was taking 500 mg Tylenol 2-3 every 4 hours while awake estimating 4-5 times a day. She thinks she took 2 tablets more often than she took 3 tablets. She also has hydrocodone/APAP 5/325 mg 4 times a day as well. Patient takes the Topamax 200 mg twice a day faithfully and gabapentin 600 mg 4 times daily. She does not take the tramadol except for as needed and that is every few days. Patient had nausea with acetylcysteine in the emergency department. Poison control was not contacted by ER and patient's second infusion was delayed. I spoke with poison control and obtained updated recommendations based on current situation which includes 50 mg/kg/h acetylcysteine which would be 2600 mg an hour x 4 hours or 10,400 mg over 4 hours. Following that we will give continuous 12.5 mg/kg/h until acetaminophen level undetectable and LFTs showing downward trend at least twice. The acetylcysteine needs to continue to be given despite a normal acetaminophen level because he replaces glutathione lost due to Tylenol overdose. Check stat Tylenol level now and if greater than 10 then she will have repeated 150 mg/kg over 1 hour bolus instead of the 50 mg/kg/h over 4 hours. Following either these options she will be changed to 12.5 mg/kg/h continuous until parameter so that we can stop the medication Vitals/I&O/Wt Last Vital Signs Temp 98.1 F 09/07/24 01:00 Pulse 78 09/07/24 07:00 Resp 21 H 09/07/24 07:00 BP 138/92 09/07/24 07:00 Pulse Ox 98 09/07/24 07:00 O2 Del Method Room Air 09/07/24 02:00 09/06/24 09/07/24 09/07/24 22:59 06:59 14:59 Intake Total 289.5 / 289.5 Balance 289.5 / 289.5 Weight last 48 hrs Weight 51.256 kg Weight 51.5 kg Weight 52.617 kg Physical Exam 2 Narrative: General Well-developed well-nourished thin female in no acute cardiopulmonary distress skin is not jaundiced noncyanotic CV regular rate and rhythm Lungs clear to auscultation bilaterally Abdomen positive bowel tones soft liver is mildly tender no rebound tenderness Back left and right flank tenderness left greater than right there is mild suprapubic tenderness Skin is damp but not overtly diaphoretic Data 09/07/24 03:59 09/07/24 03:59 A&P Assessment and plan 1. Tylenol toxicity: Patient states she started taking Tylenol August 14 or but did not take it regularly prior to the states it was started due to kidney infection symptoms and fever. She was taking 500 mg tablets 2-3 every 4 hours for 5 times a day. Additionally she has hydrocodone/APAP 5/325 that she takes 4 times a day which adds another 1300 mg of acetaminophen Patient has been started on 21-hour IV protocol 150 mg/kg IV over 60 minutes started at 1846 last p.m. (7900 mg) I spoke with poison control and see directions above in the subjective -Serum acetaminophen concentration <10 mcg/mL (66 micromol/L) -International normalized ratio (INR) <2.0 -Alanine aminotransferase (ALT) and aspartate aminotransferase (AST) are normal (or at baseline if chronically abnormal) or, if elevated, these have decreased 25 to 50 percent from the peak -Patient is clinically well (eg, no nausea/vomiting, no abdominal pain) 2. Acute liver disease: Patient with hepatitis C possibly related to blood transfusion 3 years ago but more likely related to sex exposure. Patient states she is currently getting but has children ages 17 16 and 14. She denies IV drug use ever 3. Urinary tract infection: Urinary tract infection / possible early ascending UTI/pyelonephritis : UA positive for WBCs and bacteria; left flank pain and fever; CT shows bladder wall thickening. - Initiate ceftriaxone - Send urine culture and adjust antibiotics per sensitivities 4. Nausea & vomiting: Persistent nausea worsened after medications. - Ondansetron 4 mg IV/PO q4h PRN - PPI for possible NSAID-related gastritis Okay to advance diet.- Plan: Add lorazepam 1 mg every 4 hours IV for nausea Topamax will be continued 150 mg twice a day and gabapentin at 400 mg 3 times daily due to liver toxicity PDMP PDMP Reviewed: Not Reviewed Attestations 2 Medical Necessity Statement*: Patient is critically ill with hepatitis from acetaminophen overdose and will require greater than 2 midnights in the ICU Coding Level of Care Code Critical Care >/= 30 minutes Diagnoses Tylenol toxicity T39.1X1A Acute liver disease K76.9 Urinary tract infection N30.00 Hematuria presence: without hematuria Urinary tract infection type: acute cystitis Nausea & vomiting R11.2 Vomiting type: unspecified Time Spent (min) 90 Comment Case was discussed with poison control Eda and Dr. Snow
[2024-09-07] MEDS: ACETYLCYSTEINE IV (09:11)
[2024-09-07] MEDS: DEXTROSE 5% IV (09:11)
[2024-09-07] MEDS: pantoprazole 40 mg SDV IVP ×2 (09:24→20:35)
[2024-09-07 09:39] LABS: Albumin Level 3.4 g/dL (3.5-5.2); Alkaline Phosphatase 148 U/L (35-105); Globulin 2.6 g/dL (1.3-4.6); Total Protein 6.0 g/dL (6.6-8.7)
[2024-09-07 09:55] LABS: Alanine Aminotransferase 3567 U/L (0-33)
[2024-09-07 09:57] LABS: Aspartate Amino Transferase 2970 U/L (0-32)
[2024-09-07 10:09] LABS: Acetaminophen < 5.0 ug/mL (10-30)
--- NOTE | 2024-09-07 11:00 | ECG_ITS ---
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 Measurements Intervals [place] Rate: 85 P: 20 DE: 151 QRS: 10 QRSD: 77 T: 12 QT: 376 QTc: 447 Interpretive Statements SINUS RHYTHM SEPTAL MYOCARDIAL INFARCTION , OF INDETERMINATE AGE [40+ ms Q WAVE IN V1/V2] Compared to ECG 02/21/2024 16:25:11 Myocardial infarct finding now present Electronically Signed On 09-07-2024 18:38:21 CDT by Geena Multani M.D. [email or web address]
[2024-09-07 11:18] LABS: INR 1.20 (0.8-1.2); Prothrombin Time 16.00 SECONDS (12.1-14.9)
[2024-09-07 11:19] LABS: Partial Thromboplastin Time 28.6 SECONDS (23.9-36.7)
[2024-09-07 11:25] LABS: Ammonia 84 umol/L (11-51)
[2024-09-07 15:33] LABS: Albumin Level 3.8 g/dL (3.5-5.2); Alkaline Phosphatase 150 U/L (35-105); Globulin 2.8 g/dL (1.3-4.6); Total Protein 6.6 g/dL (6.6-8.7)
[2024-09-07 15:45] LABS: Alanine Aminotransferase 3481 U/L (0-33)
[2024-09-07 15:54] LABS: Aspartate Amino Transferase 2255 U/L (0-32)
--- NOTE | 2024-09-07 18:21 | PC.NURSE ---
Shift SUmmary: uneventful shift. rested in bed for most of the day, but up frequently for the bathroom. AST and ALT trending down. Occasionally requires pain medication for abdominal and/or flank pain.
[2024-09-07] MEDS: cefTRIAXone 1,000 mg SDV 1000 MG IVP (20:35)
--- NOTE | 2024-09-07 20:44 | PC.NURSE ---
Patient refused Lovenox injection due to the injection being painful.
[2024-09-07 23:05] LABS: Estmated Average Glucose 97; Hemoglobin A1C 5.0 % (4.0-6.0)
[2024-09-07 23:13] LABS: Procalcitonin 1.61 ng/mL (0-0.5)
[2024-09-07 23:32] LABS: Iron 19 ug/dL (37-145); Total Iron Binding Capacity 325 mcg/dl; Unsaturated Iron Binding 306 ug/dL (112-347)
[2024-09-08] VITALS (252 sets, daily range): BP systolic 85–121; BP diastolic 56–97; PULSE 0–123; RESP 4–34; TEMP 36.3–36.9; O2SAT 94–100; BMI 22.8
[2024-09-08 00:20] LABS: Vitamin B12 > 2000 pg/mL (232-1245)
[2024-09-08] MEDS: HYDROmorphone 0.5 MG/0.5 ML INJ IVP ×2 (04:01→08:16)
[2024-09-08 04:56] LABS: Hematocrit 33.6 % (36-47); Hemoglobin 10.20 g/dL (11.27-16.99); Mean Corpuscular HGB Conc 30.4 g/dL (30-55); Mean Corpuscular Hemoglobin 27.1 pg (27-33); Mean Corpuscular Volume 89.4 fl (85-98); Nucleated Red Blood Cells % 0 %; Platelet Count 302 10^3/cmm (157-399); Red Blood Count 3.76 10^6/uL (3.85-5.65); White Blood Count 4.45 10^3/uL (3.29-11.43)
[2024-09-08 05:20] LABS: Ammonia 43 umol/L (11-51)
[2024-09-08 05:33] LABS: INR 1.08 (0.8-1.2); Prothrombin Time 14.80 SECONDS (12.1-14.9)
[2024-09-08 05:36] LABS: Acetaminophen < 5.0 ug/mL (10-30); Albumin Level 3.4 g/dL (3.5-5.2); Alkaline Phosphatase 140 U/L (35-105); Anion Gap 16.5 (5-19); Blood Urea Nitrogen 5 mg/dL (6-20); Calcium 9.0 mg/dL (8.5-10.5); Carbon Dioxide 19 mmol/L (22-29); Chloride 106 mmol/L (98-107); Cholesterol 141 mg/dL (0-200); Creatinine Clr Calc Pharmacy 106.9020; Globulin 3.0 g/dL (1.3-4.6); Glucose 122 mg/dL (65-115); HDL Cholesterol 47 mg/dL (60-100); Magnesium 2.1 mg/dL (1.7-2.3); Osmolality Calculated 285 mOsm/kg (285-295); Potassium 3.5 mmol/L (3.5-5.1); Sodium 138 mmol/L (136-145); Thyroid Stimulating Hormone 0.74 uIU/mL (0.27-4.20); Total Protein 6.4 g/dL (6.6-8.7); Triglycerides 93 mg/dL (0-150); VLDL Cholestrol Calculation 19 mg/dL (0-30)
[2024-09-08 05:47] LABS: Alanine Aminotransferase 2505 U/L (0-33)
[2024-09-08 05:48] LABS: Aspartate Amino Transferase 949 U/L (0-32)
--- NOTE | 2024-09-08 08:05 | PC.NURSE ---
Received call form Angelica with poison control. Due to steadily decreasing AST and ALT, as well as Acetaminophen level <5, She said that it is their recommendation that the acetylcisteine does not need to be continued after this current bag is empty.
--- NOTE | 2024-09-08 08:55 | CT_ITS ---
WS: [id number] CT ABDOMEN AND PELVIS WITH CONTRAST HISTORY: Pyelonephritis TECHNIQUE: Imaging performed of the abdomen and pelvis with IV contrast. Single phase imaging of the abdomen. Coronal and sagittal reformats are submitted. All CT scans at [facility] use at least one of these dose optimization techniques: automated exposure control; mA and/or kV adjustment per patient size (includes targeted exams where dose is matched to clinical indication); or iterative reconstruction. IV CONTRAST: Omnipaque 350; 100 mL IV. Oral contrast: No DLP: 320.40 mGy.cm COMPARISON: 06/07/2024 and 09/06/2024 Lower thorax: Very minimal linear atelectasis at the RIGHT lung base. Heart is normal size. No hiatal hernia. Liver/biliary system: Normal size with no intrahepatic dilatation. Gallbladder: Prior cholecystectomy. Pancreas: Normal size pancreas and pancreatic duct. No adjacent inflammation. Spleen: Normal size spleen. No mass or infarct. Adrenal glands: Normal. Right kidney: Normal. Left kidney: Normal. Aorta: Normal aorta. Limited evaluation of the SMA. Small caliber SMA but no thrombus is identified. Lymphadenopathy: None. Free fluid: None. GI tract: Stomach is markedly distended with food blood products and fluid and a small amount of air. Fluid distended duodenum. Mild increased fluid in the small bowel but there is no obstruction. Beginning in the colon there is marked colonic distention with fluid and inspissated feces. Normal appendix. Abdominal wall: Unremarkable abdominal wall. No hernia. Pelvis: No free fluid or adenopathy within the pelvis. Prior hysterectomy. Urinary bladder is not distended. No abnormality identified. Bones: Unremarkable. CT/CT abdomen pelvis w con* [id number] IMPRESSION: 1. No renal obstruction. No evidence for pyelonephritis. 2. Nondistended urinary bladder but no significant wall thickening or inflamma tion. 3. Markedly distended stomach with fluid and food products. 4. Diffuse constipation throughout the colon. Increasing fecal material within the colon. No obstructive pattern. 5. Prior cholecystectomy and hysterectomy. 6. Negative liver.
[2024-09-08] MEDS: iohexol 350 mg/mL 500 mL Btl (per mL) IV (10:50)
[2024-09-08] MEDS: sennosides-docusate Tablet 1 TAB PO ×2 (10:51→18:01)
[2024-09-08] MEDS: pantoprazole 40 mg SDV IVP ×2 (10:52→21:13)
[2024-09-08] MEDS: HYDROmorphone 0.5 MG/0.5 ML INJ 0.2 MG IVP ×2 (12:04→17:58)
--- NOTE | 2024-09-08 13:04 | PC.NURSE ---
Patient has refused lovenox administration due to the pain of the needle stick. Nurse explained reasons for lovenox, risk for embolism especially with her history of bilateral Pulmonary emboli. Patient continues to refuse. Nurse alerted Dr wall.
--- NOTE | 2024-09-08 14:22 | P.PN_ITS ---
Subjective 2 Subjective: Hospital course, labs appreciated. Patient comfortably in bed. Denies any nausea vomiting, headache. Complaining of left flank pain. States pain started since she started thinking she has a UTI. Denies any headache, bleeding. Vitals/I&O/Wt Last Vital Signs Temp 98.1 F 09/08/24 08:45 Pulse 123 H 09/08/24 14:15 Resp 19 H 09/08/24 14:15 BP 108/76 09/08/24 13:00 Pulse Ox 100 09/08/24 14:15 O2 Del Method Room Air 09/08/24 10:20 09/07/24 09/08/24 09/08/24 22:59 06:59 14:59 Intake Total 1052 / 2565.000 Output Total 900 / 1450 Balance 1052 / 2015.000 -900 / 1115.000 Weight last 48 hrs Weight 51.3 kg Weight 51.256 kg Weight 51.5 kg Weight 52.617 kg Physical Exam 2 Narrative: General Well-developed well-nourished thin female in no acute cardiopulmonary distress skin is not jaundiced noncyanotic CV regular rate and rhythm Lungs clear to auscultation bilaterally Abdomen positive bowel tones soft liver is mildly tender no rebound tenderness Back left and right flank tenderness left greater than right there is mild suprapubic tenderness Skin is damp but not overtly diaphoretic Data 09/08/24 04:48 09/08/24 04:48 A&P Assessment and plan 1. Tylenol toxicity: Patient states she started taking Tylenol August 14 or but did not take it regularly prior to the states it was started due to kidney infection symptoms and fever. She was taking 500 mg tablets 2-3 every 4 hours for 5 times a day. Additionally she has hydrocodone/APAP 5/325 that she takes 4 times a day which adds another 1300 mg of acetaminophen Patient has been getting N-acetylcysteine as per protocol. Repeat Tylenol levels appropriate today. LFTs including AST/ALT trending down. Appreciate further poison control recommendations. Plan to discontinue N-acetylcysteine after completion of the back. Monitor LFTs daily for now. Appreciate INR. abdominal pain) 2. Acute liver disease: Most likely in setting of acute Tylenol intoxication along with history of hepatitis C. Monitor hepatitis C RNA PCR levels. 3. Urinary tract infection: Appreciate urinalysis. Patient continues to complain of flank pain. Will plan for repeat CT on pelvis with contrast for further evaluation. No culture sent during admission. For now continue with IV ceftriaxone to finish a 5-day course. Will transition to oral antibiotics if patient has not finished 5-day course of antibiotics prior to discharge. 4. Nausea & vomiting: Persistent nausea worsened after medications. - Ondansetron 4 mg IV/PO q4h PRN - PPI for possible NSAID-related gastritis Okay to advance diet.- Plan: Continue other chronic medications including Prozac, gabapentin 100 mg 3 times daily. Change to 0.2 every 6 hours as needed. Discontinue ibuprofen. Can switch to tramadol. Hold off on Ativan. Continue with Xanax 0.25 mg 3 times daily as needed. History of PE: Patient takes Eliquis at home. Not taking Lovenox stating it hurts her belly. Switch back to home dose Eliquis. Constipation: Add senna Colace twice daily, milk of magnesia one-time along with at bedtime. Transfer to [facility] floor. Regular diet Full code Protonix for PUD prophylaxis Eliquis was sufficient for DVT prophylaxis PDMP PDMP Reviewed: Not Reviewed Attestations 2 Medical Necessity Statement*: Requires further hospitalization for management of Tylenol toxicity leading to acute liver disease Diagnoses Tylenol toxicity T39.1X1A Encounter type: initial encounter Injury intent: accidental or unintentional Acute liver disease K76.9 Urinary tract infection N30.00 Hematuria presence: without hematuria Urinary tract infection type: acute cystitis Nausea & vomiting R11.2 Vomiting type: unspecified
--- NOTE | 2024-09-08 19:07 | PC.NURSE ---
Shift SUmmary: AST and ALT improved but still high. Labs to be checked in the morning. Went to CSU for a shower. Dilaudid dose decreased and tramadol added. Acetylcysteine drip discontinued. Senna and milk of mag added for constipation. Med surge overflow.
[2024-09-08] MEDS: cefTRIAXone 1,000 mg SDV 1000 MG IVP (21:12)
[2024-09-09] VITALS (147 sets, daily range): BP systolic 85–117; BP diastolic 56–84; PULSE 71–103; RESP 11–48; TEMP 36.6; O2SAT 91–100
[2024-09-09] MEDS: HYDROmorphone 0.5 MG/0.5 ML INJ 0.2 MG IVP ×2 (01:10→08:11)
[2024-09-09 05:38] LABS: Hematocrit 35.4 % (36-47); Hemoglobin 10.40 g/dL (11.27-16.99); Mean Corpuscular HGB Conc 29.4 g/dL (30-55); Mean Corpuscular Hemoglobin 26.9 pg (27-33); Mean Corpuscular Volume 91.7 fl (85-98); Nucleated Red Blood Cells % 0 %; Platelet Count 328 10^3/cmm (157-399); Red Blood Count 3.86 10^6/uL (3.85-5.65); White Blood Count 4.48 10^3/uL (3.29-11.43)
[2024-09-09 05:59] LABS: Albumin Level 3.6 g/dL (3.5-5.2); Alkaline Phosphatase 198 U/L (35-105); Anion Gap 16.6 (5-19); Aspartate Amino Transferase 341 U/L (0-32); Blood Urea Nitrogen 6 mg/dL (6-20); Calcium 9.2 mg/dL (8.5-10.5); Carbon Dioxide 19 mmol/L (22-29); Chloride 111 mmol/L (98-107); Creatinine Clr Calc Pharmacy 106.9938; Globulin 3.1 g/dL (1.3-4.6); Glucose 84 mg/dL (65-115); Osmolality Calculated 293 mOsm/kg (285-295); Potassium 3.6 mmol/L (3.5-5.1); Sodium 143 mmol/L (136-145); Total Protein 6.7 g/dL (6.6-8.7)
[2024-09-09 06:04] LABS: Magnesium 2.4 mg/dL (1.7-2.3)
[2024-09-09 06:14] LABS: Alanine Aminotransferase 1617 U/L (0-33)
[2024-09-09] MEDS: sennosides-docusate Tablet 1 TAB PO (08:10)
--- NOTE | 2024-09-09 10:03 | P.DS_ITS ---
Discharge Providers Date of Admission: 09/06/24 20:34 Date of Discharge: September 09, 2024 Attending Provider at Admission: Woody Snow Attending Provider at Discharge: Torin Ortega MD Primary Care Provider: Joaquin Mak MD Diagnoses at Discharge Discharge Diagnosis 1. Tylenol toxicity: 2. Acute liver disease: 3. Urinary tract infection: 4. Nausea & vomiting: Reason for Visit Reason for Visit: pain kidney area Brief History: History as per HPI: Mary Nesbitt is a 33 year old patient with a history of pulmonary embolism, seizure disorder (on Topamax), migraine, bipolar disorder, anxiety, endometriosis, inflammatory arthritis, inflammatory back pain, and prior cholecystectomy who presented to the emergency department with approximately 1.5 weeks of left flank pain, fever, nausea, and vomiting. She reports self-treating presumed kidney infection with up to 3,500 mg of acetaminophen daily over the past week. Initial ED work-up revealed marked transaminitis (AST 1,928 U/L; ALT 2,027 U/L) with a detectable acetaminophen level of 66.9 ?g/mL, normal total bilirubin, and normal INR. Urinalysis showed 21?50 WBCs and trace bacteria; CT abdomen/pelvis demonstrated mild bladder wall thickening and a probable involuting left ovarian corpus luteal cyst. She denies current alcohol use (stopped ~1 month ago), denies recreational drugs, and vapes. Current home medications include Topamax 400 mg total daily (dose increased 3?4 months ago), hydrocodone, gabapentin, fluoxetine, alprazolam, Eliquis for prior PE, and intermittent Zyrtec/Ondansetron. No recent dose change besides Topamax. She was given N-acetylcysteine infusion in the ED; antibiotics for UTI had not yet been started at the time of interview. She requests antiemetic therapy for persistent nausea. Hospital Course Hospital Course Patient was admitted to the hospital for evaluation and management of acute liver disease in setting of unintentional Tylenol poisoning and UTI. Poison control was contacted. She was started on acetylcysteine as per protocol. She responded well to the treatment and Tylenol levels became unremarkable with improvement in transaminitis. Her hospitalization was otherwise unremarkable. Patient continued to complain of flank pain for which CT scans were done which ruled out pyelonephritis, renal stones. She has been discharged in hemodynamically stable condition with advice to decrease use of Tylenol. She is to restrict her Tylenol to less than 1 g for next 2 weeks. She is to follow-up with the primary care provider within next 2 weeks for repeat CMP for monitoring of LFTs. Her dose of gabapentin has been changed to 300 mg every 6 hours. Physical Exam Narrative: General Well-developed well-nourished thin female in no acute cardiopulmonary distress skin is not jaundiced noncyanotic CV regular rate and rhythm Lungs clear to auscultation bilaterally Abdomen positive bowel tones soft liver is mildly tender no rebound tenderness Back left and right flank tenderness left greater than right there is mild suprapubic tenderness Skin is damp but not overtly diaphoretic Discharge Data Studies Completed and Pending Completed Studies During Hospitalization Category Date Time Status CT abdomen pelvis w con* [id number] Routine Cat Scan 09/08/24 08:[address] abdomen pelvis w con* [id number] Urgent Cat Scan 09/06/24 16:39 Completed Pending at discharge Category Date Time Status Hepatitis C RNA Viral Load Qnt Routine Lab 09/06/24 23:35 Received MAG [Magnesium] AM LABS Lab 09/10/24 04:00 Ordered PHOS [Phosphorus] AM LABS Lab 09/10/24 04:00 Ordered Topiramate Level Routine Lab 09/06/24 17:35 Received Radiology Impressions Abdomen/Pelvis CT 09/08/24 08:55 IMPRESSION: 1. No renal obstruction. No evidence for pyelonephritis. 2. Nondistended urinary bladder but no significant wall thickening or inflammation. 3. Markedly distended stomach with fluid and food products. 4. Diffuse constipation throughout the colon. Increasing fecal material within the colon. No obstructive pattern. 5. Prior cholecystectomy and hysterectomy. 6. Negative liver. Laboratory Results WBC 4.48 10^3/uL (3.29-11.43) 09/09/24 04:16 RBC 3.86 10^6/uL (3.85-5.65) 09/09/24 04:16 Hgb 10.40 g/dL (11.27-16.99) L 09/09/24 04:16 Hct 35.4 % (36-47) L 09/09/24 04:16 MCV 91.7 fl (85-98) 09/09/24 04:16 MCH 26.9 pg (27-33) L 09/09/24 04:16 MCHC 29.4 g/dL (30-55) L 09/09/24 04:16 RDW 17.0 % (12.1-15.1) H 09/09/24 04:16 Plt Count 328 10^3/cmm (157-399) 09/09/24 04:16 MPV 10.9 fL (7.4-10.4) H 09/09/24 04:16 Neut % (Auto) 32.9 % 09/09/24 04:16 Lymph % (Auto) 48.4 % 09/09/24 04:16 [place] % (Auto) 9.8 % 09/09/24 04:16 Eos % (Auto) 7.6 % 09/09/24 04:16 Baso % (Auto) 1.3 % 09/09/24 04:16 Neut # (Auto) 1.47 10^3/uL (1.8-7.7) L 09/09/24 04:16 Lymph # (Auto) 2.2 10^3/uL (0.8-4.8) 09/09/24 04:16 [place] # (Auto) 0.4 10^3/uL (0.2-0.9) 09/09/24 04:16 Eos # (Auto) 0.3 10^3/uL (0.0-0.8) 09/09/24 04:16 Baso # (Auto) 0.1 10^3/uL (0.0-0.1) 09/09/24 04:16 Nucleated RBC % (auto) 0 % 09/09/24 04:16 Nucleated RBCs # 0.0 /100WBC 09/09/24 04:16 PT 14.80 SECONDS (12.1-14.9) 09/08/24 04:48 INR 1.08 (0.8-1.2) 09/08/24 04:48 APTT 28.6 SECONDS (23.9-36.7) 09/07/24 10:28 Sodium 143 mmol/L (136-145) 09/09/24 04:16 Potassium 3.6 mmol/L (3.5-5.1) 09/09/24 04:16 Chloride 111 mmol/L (98-107) H 09/09/24 04:16 Carbon Dioxide 19 mmol/L (22-29) L 09/09/24 04:16 Anion Gap 16.6 (5-19) 09/09/24 04:16 BUN 6 mg/dL (6-20) 09/09/24 04:16 Creatinine 0.6 mg/dL (0.5-0.9) 09/09/24 04:16 GFR Calculation 114.4 mL/min (90-130) 09/09/24 04:16 Glucose 84 mg/dL (65-115) 09/09/24 04:16 Estimat Average Glucose 97 09/07/24 08:58 Hemoglobin A1c 5.0 % (4.0-6.0) 09/07/24 08:58 Calculated Osmolality 293 mOsm/kg (285-295) 09/09/24 04:16 Lactic Acid 1.1 mmol/L (0.5-2.2) 09/06/24 17:35 Calcium 9.2 mg/dL (8.5-10.5) 09/09/24 04:16 Phosphorus 3.7 mg/dL (2.5-4.5) 09/09/24 04:16 Magnesium 2.4 mg/dL (1.7-2.3) H 09/09/24 04:16 Iron 19 ug/dL (37-145) L 09/07/24 08:58 TIBC 325 mcg/dl 09/07/24 08:58 % Saturation 5.8 % (20-50) L 09/07/24 08:58 Unsat Iron Binding 306 ug/dL (112-347) 09/07/24 08:58 Total Bilirubin 0.4 mg/dL (0.15-1.2) 09/09/24 04:16 Direct Bilirubin 0.31 mg/dL (0.00-0.30) H 09/07/24 14:51 AST 341 U/L (0-32) H 09/09/24 04:16 ALT 1617 U/L (0-33) H 09/09/24 04:16 Alkaline Phosphatase 198 U/L (35-105) H 09/09/24 04:16 Ammonia 43 umol/L (11-51) 09/08/24 04:48 Total Protein 6.7 g/dL (6.6-8.7) 09/09/24 04:16 Albumin 3.6 g/dL (3.5-5.2) 09/09/24 04:16 Globulin 3.1 g/dL (1.3-4.6) 09/09/24 04:16 Triglycerides 93 mg/dL (0-150) 09/08/24 04:48 Cholesterol 141 mg/dL (0-200) 09/08/24 04:48 LDL Cholesterol, Calc 75 mg/dL (50-129) 09/08/24 04:48 Total VLDL Cholesterol 19 mg/dL (0-30) 09/08/24 04:48 HDL Cholesterol 47 mg/dL (60-100) L 09/08/24 04:48 Cholesterol/HDL Ratio 3.00 mg/dL (0.0-4.40) 09/08/24 04:48 Lipase 24 U/L (13-60) 09/06/24 17:35 Vitamin B12 > 2000 pg/mL (232-1245) H 09/07/24 08:58 Folate 10.5 ng/mL (4.8-37.3) 09/08/24 04:48 Procalcitonin 1.61 ng/mL (0-0.5) H 09/07/24 08:58 TSH 0.74 uIU/mL (0.27-4.20) 09/08/24 04:48 HCG, Qual Negative (Negative) 09/06/24 16:31 Urine Color Yellow (Yellow) 09/06/24 16:31 Urine Appearance Clear (CLEAR) 09/06/24 16:31 Urine pH 5.5 (5-7) 09/06/24 16:31 Ur Specific [place] 1.031 (1.005-1.030) H 09/06/24 16:31 Urine Protein 1+ (Negative) A 09/06/24 16:31 Urine Glucose (UA) Negative (Normal) 09/06/24 16:31 Urine Ketones 1+ (Negative) H 09/06/24 16:31 Urine Blood Negative (Negative) 09/06/24 16:31 Urine Nitrate Negative (Negative) 09/06/24 16:31 Urine Bilirubin Negative (Negative) 09/06/24 16:31 Urine Urobilinogen 1.0 mg/dL (Negative) 09/06/24 16:31 Ur Leukocyte Esterase 1+ (Negative) A 09/06/24 16:31 Urine RBC 3-5 /hpf (0-2) 09/06/24 16:31 Urine WBC 21-50 /hpf (0-5) H 09/06/24 16:31 Ur Squamous Epith Cells 6-10 /hpf (0-5) 09/06/24 16:31 Amorphous Sediment Not Reportable 09/06/24 16:31 Urine Bacteria Trace /hpf (NONE) 09/06/24 16:31 Hyaline Casts 3.30 /lpf 09/06/24 16:31 Urine Opiates Screen Positive ng/mL (Negative) H 09/06/24 16:31 Acetaminophen < 5.0 ug/mL (10-30) L 09/08/24 04:48 Ur Barbiturates Screen Negative ng/mL (Negative) 09/06/24 16:31 Ur Phencyclidine Scrn Negative ng/mL (Negative) 09/06/24 16:31 Ur Amphetamines Screen Negative ng/mL (Negative) 09/06/24 16:31 U Benzodiazepines Scrn Positive ng/mL (Negative) H 09/06/24 16:31 Urine Cocaine Screen Negative ng/mL (Negative) 09/06/24 16:31 U Marijuana (THC) Screen Negative ng/mL (Negative) 09/06/24 16:31 Hepatitis A IgM Ab Non-reactive (Nonreactive) 09/06/24 17:35 Hep Bs Antigen Non-reactive (Nonreactive) 09/06/24 17:35 Hep B Core IgM Ab Non-reactive (Nonreactive) 09/06/24 17:35 Hepatitis C Antibody Reactive (Nonreactive) H 09/06/24 17:35 Vitals Last Vital Signs Temp 97.6 F 09/08/24 19:00 Pulse 80 09/09/24 06:28 Resp 21 H 09/09/24 06:28 BP 116/79 09/09/24 06:28 Pulse Ox 96 09/09/24 06:28 O2 Del Method Room Air 09/08/24 17:20 Discharge Plan Discharge Patient Disposition: Home Condition: Stable Prescriptions: New sennosides [Evac-U-Gen (sennosides)] 8.6 mg tablet 8.6 mg PO DAILY Qty: 20 0RF Continued fluoxetine [Prozac] 40 mg capsule 40 mg PO DAILY Qty: 30 2RF tramadol 50 mg tablet 50 mg PO Q4H PRN (Reason: Mild Pain (Scale Score 1-4)) topiramate 200 mg tablet 200 mg PO BID ondansetron 4 mg tablet,disintegrating 4 mg PO TID PRN (Reason: Nausea And Vomiting) hydrocodone-acetaminophen 5-325 mg tablet 1 tab PO Q6H PRN (Reason: pain) Qty: 30 0RF Eliquis 5 mg tablet 5 mg PO BID alprazolam 0.25 mg tablet 0.25 mg PO TID PRN (Reason: Anxiety) Changed gabapentin 300 mg capsule 300 mg PO QID 30 Days Qty: 120 3RF Discharge Order = DC NOW: Discharge Order (Routine); Ordered 09/09/24 Ordered By: Torin Ortega Referrals: Joaquin Mak MD [Primary Care Provider, [facility]] - 09/23/24 2:15 pm Discharge Diet: Cardiac Discharge Activity: Resume usual activity and Increase activity as tolerated Patient Instructions: Urinary Tract Infection in Women (DC), Heart Healthy Diet (DC), Chronic Liver Disease (DC), Opioid Safety, Patient Portal & Ben Instructions Activity Restrictions/Additional Instructions: Please restrict Tylenol use to less than 1 g every day. Do not take Tell more than 3 times a day. Avoid alcohol. Follow-up with a primary care provider within next 2 weeks for repeat CMP. Follow-up with your primary care provider for further evaluation and management of hepatitis C. If hepatitis RNA load is elevated you need to follow-up with ID clinic as an outpatient for further treatment. Discharge Attestations Time Spent in Discharge Care*: greater than 30 min Specific Discharge Activities: educating patient, educating and/or supporting family/caregiver, discussing with pcp/other providers, discussing with director of casework department/social workers/dc planners, documenting/other paperwork and evaluating patient/reviewing data Quality Metrics Clinical Quality Measures [ No reported AMI, CVA or VTE this stay] Coding Level of Care Code 15959 Total time (in minutes) for Discharge: 65 Diagnoses Tylenol toxicity T39.1X1A Encounter type: initial encounter Injury intent: accidental or unintentional Acute liver disease K76.9 Urinary tract infection N30.00 Hematuria presence: without hematuria Urinary tract infection type: acute cystitis Nausea & vomiting R11.2 Vomiting type: unspecified
[2024-09-09] MEDS: pantoprazole 40 mg SDV IVP (10:06)
[2024-09-09 13:36] LABS: HEP C RNA Viral Load Quant 5.83 Log IU/mL (NOT DETECTED); HEP C RNA Viral Load Quant 683000 IU/mL (NOT DETECTED)
== END 2024-09-09 11:16 | disposition home or self-care (01) | DRG 918 ==
LOC: ER 19:23 → ICU 21:30
PROVIDERS: Internal Medicine; Admitting Provider Internal Medicine; Emergency Provider Physician Assistant; PCP Family Medicine; Visit Provider Student in an Organized Health Care Education/Training Program
DX: T39.1X1A Poisoning by 4-Aminophenol derivatives, accidental (unintentional), initial encounter (principal); N39.0 Urinary tract infection, site not specified; Y92.9 Unspecified place or not applicable; K71.8 Toxic liver disease with other disorders of liver; F41.9 Anxiety disorder, unspecified; M13.80 Other specified arthritis, unspecified site; G43.909 Migraine, unspecified, not intractable, without status migrainosus; G40.909 Epilepsy, unspecified, not intractable, without status epilepticus; Z86.711 Personal history of pulmonary embolism; Z79.01 Long term (current) use of anticoagulants
CPT/HCPCS: 36415; 74177; 80053; 80061; 80074; 80076; 80201; 80306; 80307; 81001; 81025; 82140; 82607; 82746; 83036; 83540; 83550; 83605; 83690; 83735; 84100; 84145; 84443; 85025; 85610; 85730; 87522; 93005; 96365; 96372; 96374; 96375; 96376; 99285; J0132; J0696; J1171; J1650; J2270; J2405; J2470; J7060; J7070; J7120; J9999

== ENCOUNTER 2024-09-13 21:40 | Emergency (ER) | payer MEDICAID, SELFPAY ==
--- OUTSIDE RECORDS SUMMARY | 2024-09-13 21:43 | XMS_ITS | Clinical Summary ---
Author Organization [facility] Address [address] [place] [address] Care Team Providers Care Forming Tube Selector Name Role Phone Joaquin Mak MD Primary Care Provider [phone] Allergies Active Allergy Reactions Criticality Noted Date [...] Comments Blood Pressure 119/75 12/29/2019 3:14 PM LEGISLATIVE ADVOCATE Pulse 75 12/29/2019 3:14 PM LEGISLATIVE ADVOCATE Temperature 37.2 C (98.9 F) 12/29/2019 2:03 PM LEGISLATIVE ADVOCATE Respiratory Rate 18 12/29/2019 3:14 PM LEGISLATIVE ADVOCATE Oxygen Saturation 99% 12/29/2019 3:14 PM LEGISLATIVE ADVOCATE Inhaled Oxygen Concentration - - Weight 47.6 kg (105 lb) 12/29/2019 2:03 PM LEGISLATIVE ADVOCATE Height 149.9 cm (4' 11 ) 12/29/2019 2:03 PM LEGISLATIVE ADVOCATE Body Mass Index 21.21 12/29/2019 2:03 PM LEGISLATIVE ADVOCATE Plan of Treatment Health Maintenance Due Date Last Done Comments HPV VACCINES (1 - 3-dose series) 2004 DTAP/TDAP/TD VACCINES (1 - Tdap) 2008 HEPATITIS B VACCINES (1 of 3 - 19+ 3-dose series) 09/19 HPV/Cotest (21-29) 2010 CERVICAL CANCER SCREENING 10/03/2019 HPV/Cotest (30-65) 10/03/2019 PAP SMEAR 10/03/2019 INFLUENZA VACCINE (#1) 2024 Insurance Care Teams Forming Tube Selector Relationship Specialty Start Date End Date Joaquin Mak MD [address] [id number] PCP - General Family Practice 12/29/19
--- OUTSIDE RECORDS SUMMARY | 2024-09-13 21:43 | XMS_ITS | Clinical Summary ---
Author Organization [facility] Address [address] [place] [address] Care Team Providers Care Pipe Line Inspector Name Role Phone Joaquin Mak MD Primary Care Provider [phone] Allergies Active Allergy Reactions Criticality Noted Date [...] on file Legal Sex Female 11:32 PM UNIVERSITY RELATIONS DIRECTOR Gender Identity Not on file Sexual Orientation Not on file Last Filed Vital Signs Vital Sign Reading Time Taken Comments Blood Pressure 92/54 05/17/2023 10:35 AM CDT Pulse 75 12/29/2019 3:14 PM UNIVERSITY RELATIONS DIRECTOR Temperature 37.2 C (98.9 F) 12/29/2019 2:03 PM UNIVERSITY RELATIONS DIRECTOR Respiratory Rate 18 12/29/2019 3:14 PM UNIVERSITY RELATIONS DIRECTOR Oxygen Saturation - - Inhaled Oxygen Concentration - - Weight 52.6 kg (116 lb) 05/17/2023 10:35 AM CDT Height 149.9 cm (4' 11 ) 05/17/2023 10:35 AM CDT Body Mass Index 23.43 05/17/2023 10:35 AM CDT Plan of Treatment Health Maintenance Due Date Last Done Comments HPV VACCINES (1 - 3-dose series) 2004 HEPATITIS B VACCINES (1 of 3 - 19+ 3-dose series) 09/19 HPV/Cotest (21-29) 2010 CERVICAL CANCER SCREENING 10/03/2019 HPV/Cotest (30-65) 10/03/2019 PAP SMEAR 10/03/2019 INFLUENZA VACCINE (#1) 2024 DTAP/TDAP/TD VACCINES (2 - Td or Tdap) 09/11/[address] [facility] [employer] MEDICAID Care Teams Pipe Line Inspector Relationship Specialty Start Date End Date Joaquin Mak MD [address] [id number] PCP - General Family Practice 12/29/19
--- OUTSIDE RECORDS SUMMARY | 2024-09-13 21:43 | XMS_ITS | Data Portability ---
Author Organization RILEY Masood Hurtado [facility], [facility], [facility] Address [address] [address] Care Team Providers Care Wad Compressor Operator Adjuster Name Role Phone CIRO MAK Primary Care Provider Assessment No assessment recorded. Plan of Treatment Reminders Order Date Submit Date Provider Last Modified By Organization Details Last Modified Time Details Appointments HOSPITAL F/U30 2024 02:15P Ani Mak MD Not available Not available Not available Lab hepatic function panel, serum 2024 025 JONATHAN [facility], [address], [address], 09/12/2024 14:31:58 hepatitis C virus Ab, serum 2024 025 Kyron [facility], [address] [place] [address] [address] [place], [address], 09/12/2024 14:32:39 hepatitis C genotype, serum or plasma 2024 025 [email or web address] [facility] ([facility]), [address] [place], [address], 09/12/2024 14:31:54 Referral gynecolog ist referral 2024 025 [email or web address] [facility] ([facility]), [address] [place], [address], 06/20/2024 21:06:22 orthopedi c surgeon referral [address] [facility], [address] [place], [address], 06/04/2024 10:52:18 Procedures None recorded. Surgeries None recorded. Imaging MRI, knee, w/o contrast 2024 025 [facility], [address] [place], [address], 06/12/2024 10:29:43 XR, knee, 3 view 2024 [facility] ([facility]), [address] [place], [address], 05/27/2024 11:18:48 Medication Orders cephalexi n 500 mg capsule 2024 025 [facility], [address] [place] [address], [address], 06/30/2024 05:01:23 clindamyc in HCl 300 mg capsule 2024 025 [facility], [address] [place] [address], [address], 06/30/2024 05:01:23 Bactrim DS 800 mg-160 mg tablet 2024 025 [facility], [address] [place] [address], [address], 06/06/2024 15:53:20 cephalexi n 500 mg capsule 2023 025 [facility], [address] [place] [address], [address], 06/30/2024 05:01:23 Mucinex D 60 mg-600 mg tablet,ex tended release 2023 024 [facility], [address] [place], [address], 01/16/2024 11:32:37 Patient TargetsNo targets recorded. Patient Instructions Encounter Date Encounter Id Patient Instructions Last Modified By Organization Details Last Modified Time 06/13/2024 [id number] Cleared for surgical repair of the knee. [email or web address] Not available 06/13/2024 16:34:29 Reason for Referral Orthopedic Surgeon Referral for Derangement of right knee Referring Physician: Ciro Mak [facility], Encounter Date: 05/28/2024 Chief Telephone Operator Referral for Cy st of left ovary Referring Physician: Ciro Mak [facility], Encounter Date: 06/13/2024 Results Created Date Observation Date Name Description Value Unit Range Abnormal Flag Note LastModifiedBy Organization Detail LastModifiedTime 01/29/20 24 01/29/2024 CBC WBC 10.1 x10 4.0-10 .5 Not Available [facility] [address] [facility], [place], [address], 01/29/2024 14:53:58 01/29/20 24 01/29/2024 CBC RBC 3.56 x10 3.50-5 .50 Not Available [facility] [address] [facility], [place], [address], 01/29/2024 14:53:58 01/29/20 24 01/29/2024 CBC HGB 10.6 g/dL 12.0-1 6.0 low Not Available [facility] [address] [facility], [place], [address], 01/29/2024 14:53:58 01/29/20 24 01/29/2024 CBC HCT 32.0 % 37.0-4 7.0 low Not Available [facility] [address] [facility] [address], [place], [address], 01/29/2024 14:53:58 01/29/20 24 01/29/2024 CBC MCV 90.0 fL 80.0-9 9.9 Not Available [facility] [address] Kareen Matthews [facility] 1, [place], [address], 01/29/2024 14:53:58 01/29/20 24 01/29/2024 CBC MCH 29.9 pg 27.0-3 2.0 Not Available [facility] [address] [facility], [place], [address], 01/29/2024 14:53:58 01/29/20 24 01/29/2024 CBC MCHC 33.2 g/dL 32.0-3 6.0 Not Available [facility] [address] [facility], [place], [address], 01/29/2024 14:53:58 01/29/20 24 01/29/2024 CBC RDW 16.5 % 11.5-1 4.5 high Not Available [facility] [address] [facility], [place], [address], 01/29/2024 14:53:58 01/29/20 24 01/29/2024 CBC plt 664.3 x10 140.0- 451.0 high Not Available [facility] [address] Cassie [facility] 1, [place], [address], 01/29/2024 14:53:58 01/29/20 24 01/29/2024 CBC lymphocytes % 29.1 % 20.0-5 0.0 Not Available [facility] [address] [facility] 1, [place], [address], 01/29/2024 14:53:58 01/29/20 24 01/29/2024 CBC granulcytes % 60.0 % 30.0-7 0.0 Not Available [facility] [address] Kentanel [address] [facility] 1, [place], [address], 01/29/2024 14:53:58 01/29/20 24 01/29/2024 CBC monocytes % 9.1 % 2.0-16 .0 Not Available [facility] [address] [facility] [address], [place], [address], 01/29/2024 14:53:58 01/29/20 24 01/29/2024 CBC granulcytes# 6.1 x10 Not Guillermina ilable [facility] [address] [facility] [address], [place], [address], 01/29/2024 14:53:58 01/29/20 24 01/29/2024 CBC lymphocytes # 2.9 x10 Not Available [facility] [address] [facility], [place], [address], 01/29/2024 14:53:58 01/29/20 24 01/29/2024 CBC monocytes # 0.9 x10 Not Avai lable [facility] [address] [facility], [place], [address], 01/29/2024 14:53:58 01/29/20 24 01/29/2024 URINA LYSIS WITH MICRO color YELLOW Not Available [facility] [address] [facility], [place], [address], 01/29/2024 15:13:26 01/29/20 24 01/29/2024 URINA LYSIS WITH MICRO clarity CLEAR Not Available [facility] [address] [facility], [place], [address], 01/29/2024 15:13:26 01/29/20 24 01/29/2024 URINA LYSIS WITH MICRO glu NEGATI VE Not Available [facility] [address] [facility] 1, [place], [address], 01/29/2024 15:13:26 01/29/20 24 01/29/2024 URINA LYSIS WITH MICRO bili NEGATI VE Not Available [facility] [address], [place], [address], 01/29/2024 15:13:26 01/29/20 24 01/29/2024 URINA LYSIS WITH MICRO ket NEGATI VE Not Available [facility] [address], [place], [address], 01/29/2024 15:13:26 01/29/20 24 01/29/2024 URINA LYSIS WITH MICRO S.g 1.015 1.005- 1.025 Not Available [facility] [address], [place], [address], 01/29/2024 15:13:26 01/29/20 24 01/29/2024 URINA LYSIS WITH MICRO pH 7.0 5.0-7. 0 Not Available [facility] [address], [place], [address], 01/29/2024 15:13:26 01/29/20 24 01/29/2024 URINA LYSIS WITH MICRO pro NEGATI VE Not Available [facility] [address], [place], [address], 01/29/2024 15:13:26 01/29/20 24 01/29/2024 URINA LYSIS WITH MICRO uro 0.2 E.U./D L Not Available [facility] [address], [place], [address], 01/29/2024 15:13:26 01/29/20 24 01/29/2024 URINA LYSIS WITH MICRO nit NEGATI VE Not Available [facility] [address], [place], [address], 01/29/2024 15:13:26 01/29/20 24 01/29/2024 URINA LYSIS WITH MICRO blo NEGATI VE Not Available [facility] [address], [place], [address], 01/29/2024 15:13:26 01/29/20 24 01/29/2024 URINA LYSIS WITH MICRO janice TRACE abnormal Not Available [facility] [address], [place], [address], 01/29/2024 15:13:26 01/29/20 24 01/29/2024 URINA LYSIS WITH MICRO WBC 6-8 abnormal Not Available [facility] [address], [place], [address], 01/29/2024 15:13:26 01/29/20 24 01/29/2024 URINA LYSIS WITH MICRO RBC 0-1 Not Available [facility] [address], [place], [address], 01/29/2024 15:13:26 01/29/20 24 01/29/2024 URINA LYSIS WITH MICRO epi cells 15-18 abnormal Not Available [facility] [address], [place], [address], 01/29/2024 15:13:26 01/29/20 24 01/29/2024 URINA LYSIS WITH MICRO bacteria TRACE OF MIXED ABHILASH abnormal Not Available [facility] [address], [place], [address], 01/29/2024 15:13:26 01/29/20 24 01/29/2024 URINA LYSIS WITH MICRO other NG Not Available [facility] [address], [place], [address], 01/29/2024 15:13:26 01/29/20 24 01/31/2024 COMPR EHENS MERY METAB OLIC PANEL glucose 75 mg/dL 65-99 normal Fasti ng refer ence inter rex Not Available [address], [address], 01/31/2024 01:15:52 01/29/20 24 01/31/2024 COMPR EHENS MERY METAB OLIC PANEL urea nitrogen (BUN) 9 mg/dL 7-25 normal Not Available [address], [address], 01/31/2024 01:15:52 01/29/20 24 01/31/2024 COMPR EHENS MERY METAB OLIC PANEL creatinine 0.67 mg/dL 0.50-0 .97 normal Not Available [address], [address], 01/31/2024 01:15:52 01/29/20 24 01/31/2024 COMPR EHENS MERY METAB OLIC PANEL eGFR 118 mL/mi n/1.7 3m2 > or = 60 normal Not Available [address], [address], 01/31/2024 01:15:52 01/29/20 24 01/31/2024 COMPR EHENS MERY METAB OLIC PANEL BUN/creatini ne ratio SEE NOTE: (calc ) 6-22 Not Repor abhijeet: BUN and Creat inine are withi n refer ence range . Not Available [address], [address], 01/31/2024 01:15:52 01/29/20 24 01/31/2024 COMPR EHENS MERY METAB OLIC PANEL sodium 139 mmol/ L 135-14 6 normal Not Available [address], [address], 01/31/2024 01:15:52 01/29/20 24 01/31/2024 COMPR EHENS MERY METAB OLIC PANEL potassium 3.7 mmol/ L 3.5-5. 3 normal Not Available [address], [address], 01/31/2024 01:15:52 01/29/20 24 01/31/2024 COMPR EHENS MERY METAB OLIC PANEL chloride 104 mmol/ L 98-110 normal Not Available [address], [address], 01/31/2024 01:15:52 01/29/20 24 01/31/2024 COMPR EHENS MERY METAB OLIC PANEL carbon dioxide 24 mmol/ L 20-32 normal Not Available [address], [address], 01/31/2024 01:15:52 01/29/20 24 01/31/2024 COMPR EHENS MERY METAB OLIC PANEL calcium 9.6 mg/dL 8.6-10 .2 normal Not Available [address], [address], 01/31/2024 01:15:52 01/29/20 24 01/31/2024 COMPR EHENS MERY METAB OLIC PANEL protein, total 7.1 g/dL 6.1-8. 1 normal Not Available [address], [address], 01/31/2024 01:15:52 01/29/20 24 01/31/2024 COMPR EHENS MERY METAB OLIC PANEL albumin 3.8 g/dL 3.6-5. 1 normal Not Available [address], [address], 01/31/2024 01:15:52 01/29/20 24 01/31/2024 COMPR EHENS MERY METAB OLIC PANEL globulin 3.3 g/dL_ (calc ) 1.9-3. 7 normal Not Available [address], [address], 01/31/2024 01:15:52 01/29/20 24 01/31/2024 COMPR EHENS MERY METAB OLIC PANEL albumin/glob ulin ratio 1.2 (calc ) 1.0-2. 5 normal Not Available [address], [address], 01/31/2024 01:15:52 01/29/20 24 01/31/2024 COMPR EHENS MERY METAB OLIC PANEL bilirubin, total 0.3 mg/dL 0.2-1. 2 normal Not Available [address], [address], 01/31/2024 01:15:52 01/29/20 24 01/31/2024 COMPR EHENS MERY METAB OLIC PANEL alkaline phosphatase 155 U/L 31-125 high Not Available [address], [address], 01/31/2024 01:15:52 01/29/20 24 01/31/2024 COMPR EHENS MERY METAB OLIC PANEL AST 16 U/L 10-30 normal Not Available [address], [address], 01/31/2024 01:15:52 01/29/20 24 01/31/2024 COMPR EHENS MERY METAB OLIC PANEL ALT 24 U/L 6-29 normal Not Available [address], [address], 01/31/2024 01:15:52 01/29/20 24 01/31/2024 CULTU RE, URINE , ROUTI NE culture, urine, routine SEE NOTE CULTU RE, URINE , ROUTI NE Micro Numbe r: [id number] Test Statu s: Final Speci men Sourc e: Urine Speci men Quali ty: Adequ ate Resul t: No Growt h Not Available [address], [address], 01/31/2024 01:15:54 05/28/19 25 05/26/2024 XR, knee, 3 view No observ ation record ed. [email or web address] [facility] [address] [place], [address], 06/03/2024 14:40:14 06/13/19 25 06/12/2024 MRI, knee, w/o contr ast No observ ation record ed. [facility] [address] [place], [address], 06/27/2024 11:13:58 Result Notes None recorded. Problems Name Problem SNOMED Code Status Onset Date Resolution Date Notes Provider Name and Address Organization Details Recorded Time Depressive disorder 76580551 Active 2022 GEO rubio [facility] 17:49:55 Migraine 09627089 Active 2022 MIGRAI NE; Impres comfort: daily migrai ne. GEO rubio [facility] 5 17:51:24 Chronic pain syndrome 103135371 Active 2022 GEO rubio [facility] 5 17:49:55 Major depressive disorder 009019551 Active 2022 GEO rubio [facility] 5 17:49:55 Bipolar disorder 81745528 Active 2022 GEO rubio [facility] 5 17:49:54 Essential hypertensio n 48847274 Active 2022 GEO rubio [facility] 5 17:49:55 Livedo reticularis 553503754 Active 2022 GEO rubio [facility] 5 17:49:54 Hyperesthes ia 95100805 Active 2022 GEO rubio, [facility] 5 17:49:54 Gastroesoph ageal reflux disease 129718261 Active 2022 GEO GUZMAN null, [facility] 17:49:54 Seizure disorder 576911935 Active 2022 GEO GUZMAN null, [facility] 17:49:54 Cyst of left ovary 9085782352365 9108 Active 2022 Ciro Mak MD [address] [place] [address], [address] , [facility] 5 16:21:39 Generalized anxiety disorder 56881254 Active 2023 GEO GUZMAN null, [facility] 5 17:49:54 Pulmonary embolism with pulmonary infarction 3376046826727 [facility] 17:50:09 Hypercoagul ability state 24816833 Active 2023 [facility] 5 17:49:55 Chronic diarrhea 731511992 Active 2023 [facility] 5 17:49:54 Genital herpes simplex 71499287 Active 2023 GEO GUZMAN null, [facility] 5 17:49:54 Derangement of right knee 9791473347666 9109 Active 2024 [facility] 04/09/202 5 17:52:05 Bacterial urinary infection 770197629 Active 2024 Ciro Mak MD [address] [place] [address], [address] [place] [address], [facility] 16:21:00 Rupture of anterior cruciate ligament of right knee 1117288445810 9103 Active 2024 Ciro Mak MD [address] [place] [address], [address] [place] [address] 5, [facility] 16:22:23 Dog bite - wound 604956812 Active 2024 Ciro Mak MD [address] [place] [address], [address] [place] [address] 5, [facility] 16:23:30 Acute hepatitis C 842822210 Active 2024 Ciro Mak MD [address] [place] [address], [address] [place] [address], [facility] 14:23:53 Inflammator y disease of liver 466453630 Active 2024 Ciro Mak MD [address] [place] [address], [address] [place] [address], [facility] 14:24:06 Generalized abdominal pain 848129630 Active 2024 Ciro Mak MD [address] [place] [address], [address] [place] [address] 5, [facility] 14:25:57 Problem Notes None recorded. Procedures Surgical History Date Name Laterality Status Provider Name and Address Organization Details Recorded Time Cholecystectomy completed Wilma Pritchett [facility] [place] 06/11/2023 15:56:58 Tubal Ligation completed [facility] [place] 06/11/2023 15:57:02 Total Hysterectomy completed [facility], [place] 06/11/2023 15:57:06 removal of displaced intrauterine contraceptive device completed [facility], [place] 06/11/2023 15:57:27 Ovarian Cystectomy completed [facility], aClvin 06/11/2023 15:57:42 Laparoscopy completed [facility], [place] 06/11/2023 15:57:47 right oophorectomy completed Rody Moody [facility] [place] 10/10/2023 10:30:05 Imaging Results None recorded. Procedure Notes None recorded. Medical Equipment None Reported. Allergies Allergen ID Allergen Name Allergen Category Reaction Reaction Severity Criticality Documentation Date Start Date Code Code System Note Provider Name and Address Organization Details Recorded Time 1788 amoxicill in medicatio n hives mild low 06/07/2022 723 RxNorm [facility] 4 15:52:07 1789 latex environme nt,medica tion hives mild low 06/07/2022 10808 91 RxNorm [facility] 4 15:52:19 [address] methotrex ate medicatio n headache vomiting moderate mild low 11/21/2022 6851 RxNorm Wilmanamrata Pritchett [facility], [facility] 4 15:52:27 78003 methylpre dnisolone medicatio n tachycard ia moderate low 06/11/2023 6[facility] 4 15:54:04 Medications Name Sig Start Date Stop Date Status Note LastModified by Organization Details LastModified Time fluoxetin e 40 mg capsule TAKE ONE CAPSULE BY MOUTH DAILY active Not Available Not Available No t Available cyclobenz aprine 10 mg tablet TAKE 1 TABLET BY MOUTH EVERY 8 HOURS 11/05 completed Not Available Not Available Not Available prednison e 10 mg tablet TAKE 1 TABLET BY MOUTH DAILY. START AFTER COMPLETI NG DOSE OF 20 MG TABLET 07/07 completed Not Available Not Available Not Available sulfasala zine 500 mg tablet TAKE 1 TABLET BY MOUTH TWICE DAILY 01/09 completed Not Available Not Available Not Available tizanidin e 2 mg tablet TAKE 1 TABLET BY MOUTH THREE TIMES DAILY NEEDED FOR RIB PAIN 01/09 completed Not Available Not Available Not Available clindamyc in HCl 300 mg capsule Take 1 capsule 3 times a day by oral route for 10 days. 06/30 completed Not Available Not Available Not Available triazolam 0.25 mg tablet TAKE 2 TABLETS BY MOUTH 1.5 HOURS BEFORE APPOINTM ENT 09/28 completed Not Available Not Available Not Available loperamid e 2 mg capsule TAKE ONE CAPSULE BY MOUTH EVERY 4 HOURS as needed for loose stool 11/05 completed Not Available Not Available Not Available cetirizin e 10 mg tablet TAKE ONE TABLET BY MOUTH DAILY active Not Available Not Available No t Available ibuprofen 800 mg tablet TAKE 1 TABLET BY MOUTH EVERY 8 HOURS 10/09 completed Not Available Not Available Not Available citalopra m 10 mg tablet TAKE 1 TABLET BY MOUTH DAILY 11/05 completed Not Available Not Available Not Available valacyclo vir 1 gram tablet TAKE ONE TABLET BY MOUTH EVERY TWELVE HOURS for 10 DAYS 01/09 completed Not Available Not Available Not Available clarithro mycin 500 mg tablet TAKE 1 TABLET BY MOUTH EVERY 12 HOURS FOR 10 DAYS 09/06 completed Not Available Not Available Not Available hydrocodo ne 5 mg-acetam inophen 325 mg tablet TAKE ONE TABLET BY MOUTH THREE TIMES DAILY NEEDED active Not Available Not Available No t Available fluconazo le 200 mg tablet TAKE 1 TABLET BY MOUTH NOW, THEN REPEAT WHEN OUT OF METRONID AZOLE 09/28 completed Not Available Not Available Not Available ondansetr on HCl 4 mg tablet Take 1 tablet every 6 hours by oral route. 01/16 completed Not Available Not Available Not Available prednison e 20 mg tablet daily 01/[address] Jm Pruett; Recorded 05/09/19 23 10:52AM by Geo Guzman, Office Visit; Not Available Not Available Not Available dexametha sone 6 mg tablet TAKE 1 TABLET BY MOUTH ONCE DAILY FOR 5 DAYS 06/11 completed Not Available Not Available Not Available sumatript an 50 mg tablet TAKE 1 TABLET BY MOUTH NEEDED FOR MIGRAINE . MAY REPEAT ONE DOSE IN 6 HOURS IF NEEDED. MAX OF 2 TABS IN 24 HOURS 11/05 completed Not Available Not Available Not Available leflunomi de 10 mg tablet TAKE 1 TABLET BY MOUTH ONCE DAILY 06/10 completed Not Available Not Available Not Available metronida zole 500 mg tablet TAKE 1 TABLET BY MOUTH TWICE DAILY FOR 7 DAYS 09/28 completed Not Available Not Available Not Available acetamino phen 300 mg-codein e 30 mg tablet TAKE 1 TABLET BY MOUTH EVERY 6 HOURS . DO NOT EXCEED 4 PER 24 HOURS 10/09 completed Not Available Not Available Not Available divalproe x 500 mg tablet,de layed release TAKE 1 TABLET BY MOUTH TWICE DAILY 06/11 completed Not Available Not Available Not Available sulfameth oxazole 800 mg-trimet hoprim 160 mg tablet TAKE ONE TABLET BY MOUTH TWICE DAILY active Not Available Not Available No t Available leflunomi de 20 mg tablet TAKE 1 TABLET BY MOUTH ONCE DAILY active Not Available Not Available No t Available tramadol 50 mg tablet TAKE ONE TABLET BY MOUTH EVERY 4 HOURS as needed for 15 DAYS active Not Available Not Available No t Available amitripty line 50 mg tablet TAKE 1 TABLET BY MOUTH AT BEDTIME active Not Available Not Available No t Available triamtere ne 37.5 mg-hydroc hlorothia zide 25 mg capsule TAKE 1 CAPSULE BY MOUTH ONCE DAILY active Not Available Not Available No t Available vancomyci n 125 mg capsule TAKE ONE CAPSULE BY MOUTH EVERY 6 HOURS for 10 DAYS 01/09 completed Not Available Not Available Not Available ondansetr on 8 mg disintegr ating tablet DISSOLVE 1 TABLET IN MOUTH EVERY 8 HOURS NEEDED FOR NAUSEA AND VOMITING 11/05 completed Not Available Not Available Not Available alprazola m 0.25 mg tablet TAKE ONE TABLET BY MOUTH THREE TIMES DAILY as needed for 30 DAYS active Not Available Not Available No t Available famotidin e 20 mg tablet TAKE 1 TABLET BY MOUTH ONCE DAILY active Not Available Not Available No t Available methocarb rabia 750 mg tablet take 2 tablets BY MOUTH THREE TIMES DAILY as needed for muscle pain; no alcohol USE OR driving with this medicati on 06/13 completed Not Available Not Available Not Available methotrex ate sodium 2.5 mg tablet TAKE 6 TABLETS BY MOUTH ONCE WEEKLY EVERY Y 06/10 completed Not Available Not Available Not Available hydrocodo ne 7.5 mg-acetam inophen 325 mg tablet TAKE 1 TABLET BY MOUTH EVERY 4 HOURS NEEDED FOR PAIN 06/10 completed Not Available Not Available Not Available cephalexi n 500 mg capsule Take 1 capsule 3 times a day by oral route for 10 days. 06/30 completed Not Available Not Available Not Available pantopraz ole 40 mg tablet,de layed release TAKE ONE TABLET BY MOUTH TWICE DAILY 06/13 completed Not Available Not Available Not Available acyclovir 5 % topical ointment APPLY TO THE AFFECTED AREA(S) topiclal y EVERY THREE HOURS six times PER DAY 01/09 completed Not Available Not Available Not Available trazodone 150 mg tablet TAKE ONE TABLET BY MOUTH EVERY EVENING active Not Available Not Available No t Available neomycin- polymyxin -dexameth 3.5 mg/mL-10, 000 unit/mL-0 .1% eye drops 07/07 completed Not Available Not Available Not Available buspirone 10 mg tablet TAKE 1 TABLET BY MOUTH TWICE DAILY active Not Available Not Available No t Available divalproe x ER 500 mg tablet,ex tended release 24 hr TAKE 1 TABLET BY MOUTH TWICE DAILY 11/05 completed Not Available Not Available Not Available lidocaine 5 % topical patch apply ONE PATCH topicall y DAILY; LEAVE ON most painful AREA for UP TO 12 hours active Not Available Not Available No t Available promethaz ine 25 mg tablet TAKE ONE-HALF TO 1 TABLET BY MOUTH EVERY 6 HOURS as needed for nausea and vomiting 06/13 completed Not Available Not Available Not Available docusate sodium 100 mg capsule TAKE 1 CAPSULE BY MOUTH TWICE DAILY 06/10 completed Not Available Not Available Not Available gabapenti n 300 mg capsule take 2 capsules BY MOUTH FOUR TIMES DAILY for 30 DAYS active Not Available Not Available No t Available diclofena c sodium 75 mg tablet,de layed release TAKE 1 TABLET BY MOUTH TWICE DAILY 06/11 completed Not Available Not Available Not Available folic acid 1 mg tablet TAKE 1 TABLET BY MOUTH DAILY 11/05 completed Not Available Not Available Not Available topiramat e 200 mg tablet TAKE ONE TABLET BY MOUTH TWICE DAILY 2024 active Not Available Not Available Not Avai lable diclofena c sodium 50 mg tablet,de layed release TAKE 1 TABLET BY MOUTH TWICE DAILY NEEDED FOR PAIN 11/05 completed Not Available Not Available Not Available ibuprofen 600 mg tablet TAKE 1 TABLET BY MOUTH EVERY 6 HOURS NEEDED FOR PAIN 06/10 completed Not Available Not Available Not Available methylpre dnisolone 4 mg tablets in a dose pack USE DIRECTED 05/06 completed Not Available Not Available Not Available celecoxib 100 mg capsule TAKE 1 CAPSULE BY MOUTH TWICE DAILY active Not Available Not Available No t Available ondansetr on 4 mg disintegr ating tablet DISSOLVE ONE TABLET in MOUTH THREE TIMES DAILY NEEDED active Not Available Not Available No t Available cefdinir 300 mg capsule TAKE 1 CAPSULE BY MOUTH TWICE DAILY FOR 5 DAYS 06/11 completed Not Available Not Available Not Available topiramat e 100 mg tablet TAKE 1 TABLET BY MOUTH IN THE MORNING AND 2 IN THE EVENING 01/16 completed Not Available Not Available Not Available fluoxetin e 20 mg capsule TAKE 1 CAPSULE BY MOUTH ONCE DAILY 11/11 completed increase d dose Not Available Not Available Not Available fluticaso ne propionat e 50 mcg/actua tion nasal spray,jae pension instill TWO SPRAYS intranas ally EVERY DAY active Not Available Not Available No t Available naproxen 500 mg tablet TAKE 1 TABLET BY MOUTH TWICE DAILY NEEDED 06/10 completed Not Available Not Available Not Available oxycodone 5 mg tablet TAKE ONE TABLET BY MOUTH EVERY 6 HOURS NEEDED FOR PAIN 05/26 completed Not Available Not Available Not Available nitrofura ntoin monohydra te/macroc rystals 100 mg capsule take 1 capsule BY MOUTH EVERY TWELVE HOURS FOR SEVEN DAYS 06/10 completed Not Available Not Available Not Available duloxetin e 30 mg capsule,d elayed release TAKE 1 CAPSULE BY MOUTH ONCE DAILY FOR 30 DAYS 06/10 completed Not Available Not Available Not Available duloxetin e 60 mg capsule,d elayed release TAKE ONE CAPSULE BY MOUTH EVERY DAY 11/05 completed Not Available Not Available Not Available Mucinex D 60 mg-600 mg tablet,ex tended release Take 1 tablet twice a day by oral route. 2023 active Not Available Not Available Not Avai lable citalopra m daily 01/16 completed From [facility] [place]; 0; Recorded 05/09/19 23 10:54AM by Geo Guzman, Office Visit; Not Available Not Available Not Available folic acid daily 02/16 completed 0; Recorded 05/09/19 23 10:52AM by Geo Guzman, Office Visit; Not Available Not Available Not Available methotrex ate every y. 01/[address] Salcedo; 0; Recorded 05/09/19 23 10:38AM by Geo Guzman, Office Visit; Not Available Not Available Not Available naproxen two times daily, as needed 01/16 completed Recorded 05/07/19 22 4:21PM by Ciro Mak MD, Office Visit; Refill Quantity : 60; Tablet; Not Available Not Available Not Available sumatript an succinate as needed 01/16 completed Recorded 05/09/19 23 10:39AM by Geo Guzman, Office Visit; Refill Quantity : 8; Tablet; Not Available Not Available Not Available BuSpar daily 01/16 completed From [facility] [place]; 0; Recorded 05/09/19 23 10:49AM by Geo Guzman, Office Visit; Not Available Not Available Not Available ondansetr on three times daily, as needed 02/16 completed Recorded 05/09/19 23 10:39AM by Geo Guzman, Office Visit; Refill Quantity : 30; Tablet; Not Available Not Available Not Available Humira Pen 40 mg/0.8 mL subcutane ous kit inject 0.8ml SUBCUTAN EOUSLY every TWO weeks active Not Available Not Available No t Available Eliquis 5 mg tablet TAKE ONE TABLET BY MOUTH TWICE DAILY active Not Available Not Available No t Available selenium sulfide 2.3 % shampoo 3 times weekly 09/28 completed Recorded 07/06/19 21 4:06PM by Geo Guzman, Office Visit; Refill Quantity : 1; Bottle; Not Available Not Available Not Available Narcan 4 mg/actuat ion nasal spray call 911. administ er a single spray of narcan in one nostril. repeat every 2-3 minutes as needed if no or minimal response ; Refer question s about refills only to the pharmaci who fulfille d this [place] state standing order at active Not Available Not Available No t Available Eliquis DVT-PE Treatment 30-Day Starter 5 mg (74 tablets) in dose pack TAKE BY MOUTH PER PACKAGE directio ns 09/16 completed Not Available Not Available Not Available Vitals Date Recorded Body height Body mass index (BMI) Body weight Oxygen saturation Oxygen saturation in Arterial blood by Pulse oximetry Heart rate Respiratory rate Body temperature Systolic And Diastolic Provider Name and Address Organization Details Last Updated DateTime 149.86 cm 23.4 kg/m2 20900.7 1 g 96 % 96 % 84 /min 16 /min 98.2 [degF] 118/60 mm[Hg] Mali Wolf [facility] 16:39:06 Date Recorded Body height Body mass index (BMI) Body weight Oxygen saturation Oxygen saturation in Arterial blood by Pulse oximetry Heart rate Systolic And Diastolic Provider Name and Address Organization Details Last Updated DateTime 149.86 cm 23.2 kg/m2 97052.1 2 g 96 % 96 % 95 /min 94/60 mm[Hg] GEO GUZMAN [facility] 14:42:48 Date Recorded Body height Body mass index (BMI) Body weight Heart rate Systolic And Diastolic Provider Name and Address Organization Details Last Updated DateTime 06/13/2024 149.86 cm 23.4 kg/m2 84900.71 g 100 /min 110/78 mm[Hg] SONIYA KRUEGER [facility] 15:55:12 Date Recorded Body height Body mass index (BMI) Body weight Oxygen saturation Oxygen saturation in Arterial blood by Pulse oximetry Heart rate Systolic And Diastolic Provider Name and Address Organization Details Last Updated DateTime 149.86 cm 22 kg/m2 55974.5 7 g 100 % 100 % 94 /min 110/80 mm[Hg] [facility] 5 14:05:44 Date Recorded Body height Body mass index (BMI) Body weight Oxygen saturation Oxygen saturation in Arterial blood by Pulse oximetry Heart rate Systolic And Diastolic Provider Name and Address Organization Details Last Updated DateTime 4 149.86 cm 23.2 kg/m2 81232.1 2 g 95 % 95 % 99 /min 128/68 mm[Hg] [facility] 4 10:32:17 Social History Question Answer Notes LastModified by hereO Details LastModified Time Tobacco Smoking Status Never Smoker Wilma Pritchett ramiro [facility] 06/11/2023 15:56:49 What Was The Date Of Your Most Recent Tobacco Screening? 06/11/2023 Information not available 06/11/2023 Sex: Unknown Functional Status Question Answer Note LastModified by hereO Details LastModified Time Do you use any illicit or recreational drugs? No Information not available 06/11/2023 Do you or have you ever used any other forms of tobacco or nicotine? Yes Information not available 06/13/2024 What is your level of alcohol consumption? None Information not available 06/11/2023 Do you or have you ever used e-cigarettes or vape? Current user of electronic cigarettes Information not available 06/13/2024 Mental Status None recorded. Family History Relationship Description Onset Age of this Age Resolved Age Notes LastModified by Organization Details LastModified Time Father Diabetes mellitus [email or web address] Not available 06/13 15:57:28 Father Malignant neoplastic disease [email or web address] Not available 06/13 15:57:38 Mother Cerebrovascu lar accident [email or web address] Not available 15:57:55 Medical History Condition Response Coronary Artery Disease N Other N Gout N Kidney Stones N Blood Diseases N Hyperthyroidism N Blood Transfusion N COPD N Depression Y Anxiety Disorder Y Muscle, Joint, or Bone Problems N Vision or Eye Problems N Arthritis N Infertility N Polyps N Cancer N Stroke N Varicosities N Fibromyalgia N Headaches Y Kidney Disease N Heart Problems N Ear or Hearing Problems N Hospitalizations N Skin Problems N Eating Disorder N Constipation N Tuberculosis N Asthma N Hepatitis N Pulmonary Embolism N Chronic Ear Infections N Chicken Pox N Autism Spectrum Disorder (ASD) N Thrombophilias N Breast Cancer N Hypothyroidism N Lung Disease N Defects or Inherited Disease N Developmental or Behavioral Disorders N Breast Problem N Difficulty Swallowing N Anesthesia Complications N Meniere's disease N Endometriosis N Bladder or Kidney Problems N High Cholesterol N Liver Disease N Allergies/Hayfever N Thyroid Problems N GI Problems N ADD/ADHD N Anemia N Mental Illness N Ovarian Cancer N Diabetes N Bedwetting N Seizures/Epilepsy Y Eczema N Diverticulitis N Abuse/Domestic Violence N Reflux/GERD Y Heart Disease N Pre-Eclampsia N Hypertension Y Osteoporosis N Gynecological HistoryNo gynecological history recorded. Obstetrics History GPAL:G 0 P 0 0 0 0 Immunizations Vaccine Type Date Status Note Provider Nam e and Address Organization Details Recorded Time Tdap 3 completed GEO rubio [facility] 02/16/2023 15:11:53 Influenza, split virus, trivalent, preservative 6 completed GEO rubio [facility] 02/16/2023 15:11:53 Influenza, split virus, quadrivalent, preservative 9 completed GEO rubio [facility] 02/16/2023 15:11:52 Past Encounters Encounter ID Performer Location Encounter Start Date Encounter Closed Date Diagnosis/Indication Diagnosis SNOMED-CT Code Diagnosis ICD10 Code Diagnosis Note [id number] Ciro Mak MD [facility] ([facility]) [address] [place] [address] [id number] 5 06/07/2022 10:06:39 06/13/2022 11:39:35 Low back pain 730700276 M54.51 Major depr essive disorder 622718900 F32.9 Bipolar disorder 5386435 4 F31.9 Essential hypertension 49956644 I10 Chronic pain syndrome 37 1792570 G89.4 [id number] Ciro Mak MD [facility] ([facility]) [address] [place] [address] [id number] 5 07/07/2022 10:03:35 07/07/2022 13:02:37 Livedo reticularis 671838307 R23.1 unknown cause on her back. Will check MANOJ, ESR, CRP and other tests on return. Postoperat mery hematoma formation 414742765 T81.89XS She has a tender hematoma in left low abdomen area. Will watch it for now. [id number] Ciro Mak MD [facility] ([facility]) [address] [place] [address] [id number] 5 09/06/2022 14:41:46 09/06/2022 17:12:15 Low back pain 000487678 M54.50 stable Depressive disorder 3548 9007 F32.9 Hyperesthesia 45826444 R 20.3 LLQ from Surgical wound. Not severe. Disorder of skin 4068933 5 L98.9 unusual presentati on of skin of back. WIll check for autoimmune disease and refer to dermatolog y. [id number] Yves Dimas MD [facility] ([facility]) [address] [place] [address] [id number] 5 11/21/2022 14:36:35 11/30/2022 14:58:13 Nausea 284607472 R11.0 Acute uppe r respiratory infection 35151767 J06.9 Testing was negative. Likely upper respirator y infection. Recommend fluids, rest, and over-the-c ounter medication for symptom management . Anticipate this will improve over the next 7 to 10 days. [id number] Ciro Mak MD [facility] ([facility]) [address] [place] [address] [id number] 5 01/16/2023 16:02:07 01/16/2023 18:11:25 Pain of right ankle joint 8510776341 8627477 M25.571 re took xray of foot due to increased pain to make sure an occult fracture was not missed. Gastroesop hageal reflux disease 568733077 K21.9 Nausea and vomiting 1692 1999 R11.2 [id number] Ciro Mak MD [facility] ([facility]) [address] [place] [address] [id number] 5 02/16/2023 14:56:52 02/16/2023 16:01:58 Abdominal pain 96534929 R10.9 CT abdomen demonstate d moderate stool in colon and left ovarian cyst x 2. Cyst of left ovary 33295 22250 0649385 N83.202 Low back pain 557898032 M54.50 stable [id number] Ciro Mak MD [facility] ([facility]) [address] [place] [address] [id number] 5 05/07/2023 14:38:55 05/07/2023 16:31:02 Dysuria 76237602 R30.0 Recurrent urinary tract infection 464526441 N39.0 Pain of le ft knee joint 5919824137 24582 M25.122 [id number] GLENN GARCIA [facility] ([facility]) [address] [place] [address] [id number] 5 06/11/2023 15:20:14 06/12/2023 18:13:09 Pain in right hand 6971540944 17305 M79.641 Contusion of right hand 1914788728 7326176 S60.221A Xray negative. Modified volar splint applied in clinic today for comfort. Patient is to remove the splint 2-3 times a day and perform slow ROM exercises to the fingers. Discussed RICE.F/u in 5-7 days if symptoms persist for re-evaluat ion.Use tylenol/mo eddie for discomfort . [id number] Ciro Mak MD [facility] ([facility]) [address] [place] [address] [id number] 5 06/12/2023 13:46:25 06/12/2023 16:44:34 Low back pain 489149158 M54.50 worsening. She is performing back exercises on her own as thus far she has been unable to get into therapy. New exercises given to the patient that she will start today. Press up exercises, Alternate arm and leg exercises, knee to chest exercises, Curl up exercises, Pelvic tilt exercises, Heel digging bridge exercises, hamstring stretch, hip flexor stretch and wall sit exercises. Pain in right hand 57636 93262 19628 M79.641 continue splinting for comfort and ice as needed. [id number] Ciro Mak MD [facility] ([facility]) [address] [place] [address] [id number] 5 07/02/2023 14:43:21 07/02/2023 15:25:48 Pain in pelvis 11205436 R10.2 Vaginitis 70936385 N76.0 Low back pain 904837177 M54.50 Chronic, She is continuing her low back exercises. Generalize d anxiety disorder 44104803 F41.1 [id number] Ihsan Mora DO [facility] ([facility]) [address] [place] [address] [id number] 5 07/30/2023 08:19:43 07/30/2023 08:41:27 Rib pain 991593090 R07.[address] of [address], but pain more severe than expected with high risk factors, will get xray. start tizanidine prn. Return to office with no improvemen t or any problems. Go to ER with severe worsening or severe problems. [id number] Ciro Mak MD [facility] ([facility]) [address] [place] [address] [id number] 5 08/08/2023 11:26:52 08/08/2023 12:35:04 History of pulmonary embolus 137640484 Z86.711 diagnosed last week. On Eliquis 10mg bid and will start 5mg bid next week. Pulmonary embolism with pulmonary infarction 8468665199 102 I26.99 small area of infarction left lung base. Hypercoagu lability state 11522012 D68.59 Appt. peding with hematologi st/oncolog ist for further evaluation of this. [id number] Ciro Mak MD [facility] ([facility]) [address] [place] [address] [id number] 5 09/17/2023 09:59:04 09/17/2023 11:14:13 Abdominal pain 72668971 R10.9 CT abdomen was negative Diarrhea 04242018 R19.7 possible C Diff Hematochezia 274203836 K 92.1 on anticoagul ants. Pulmonary embolism with pulmonary infarction 5373687693 102 I26.99 small area of infarction left lung base. Mixed anxi ety and depressive disorder 531965445 F41.8 Generalize d anxiety disorder 27239154 F41.1 [id number] GLENN GARCIA [facility] ([facility]) [address] [place] [address] [place] [id number] 5 10/10/2023 10:15:36 10/10/2023 11:14:07 Sore throat 959964109 J02.9 Acute laryngitis 4216694 J04.0 Push cold oral fluids including Popsicles. Alternate tylenol/mo eddie for fever or discomfort .May use throat lozenges, chlorasept ic spray, or saltwater gargles.If you develop worsening symptoms such as unable to swallow, persistant fever, or concerns arise then return for re-eval. [id number] Ciro Mak MD [facility] ([facility]) [address] [place] [address] [id number] 5 10/15/2023 09:54:42 10/15/2023 10:52:42 Abdominal pain 13820658 R10.9 CT abdomen was negative Scheduled with Dr. Chamberlain for Colonoscop y and EGD at the end of October. Still some small amount of blood in stools. Allergic rhinitis 152475 04 J30.9 Gastroesop hageal reflux disease 938763246 K21.9 Hypercoagu lability state 38561796 D68.59 Pulmonary embolism with pulmonary infarction 5640287465 102 I26.99 [id number] Ciro Mak MD [facility] ([facility]) [address] [place] [address] [id number] 5 11/06/2023 14:02:32 11/08/2023 11:28:33 Chronic diarrhea 120535071 K52.9 Colonoscop y to be done next week. Vesicular eruption 75961 008 R23.8 Possibly herpes vs just irritation from frequent diarrhea. [id number] Yves Dimas MD [facility] ([facility]) [address] [place] [address] [id number] 5 01/10/2024 13:17:29 01/10/2024 14:26:25 Viral gastroenteritis 330203041 A08.4 Likely exacerbate d from viral gastroente ritis. Less likely to be pancreatit is or something similar from her recent alcohol use. The patient primarily needs a refill on her Zofran which was done today. Encouraged the patient to continue with clear liquids and when feeling better to start bland diet. With PCP if symptoms are not improving. [id number] Ciro Mak MD [facility] ([facility]) [address] [place] [address] [id number] 5 01/16/2024 10:20:16 01/16/2024 16:16:10 Diarrhea 97555514 R19.7 Chronic C Diff. SHe has an appt. with an ID physician in January to work on her plan. Low back pain 752081407 M54.50 Chronic, She is continuing her low back exercises. Acute gastroenteritis 69 484680 K52.9 Acute sinusitis 38535334 J01.90 [id number] Ihsan Mora DO [facility] ([facility]) [address] [place] [address] [id number] 5 05/26/2024 16:25:11 05/26/2024 17:22:02 Pain of right knee joint 7170505822 06574 M25.561 now chronic, since injury in feb 2024. xray today with no acute bony problems.c oncern for ligamental damage vs meniscal injury. pt to rest, ICE, start nsaids since she is not taking any. continue brace. f/u with pcp to consider further imaging vs PT vs ortho referral.c ounseled Cellulitis of right thumb 8420850319 8537343 L03.011 2/2 dog bite. will start abx, she is UTD on tetnus. .cx [id number] Ciro Mak MD [facility] ([facility]) [address] [place] [address] [id number] 5 05/28/2024 14:30:26 05/29/2024 08:37:16 Derangement of right knee 1535845574 6472014 M23.91 her knee pain has been persistant for 3 months since her injury. [id number] Ciro Mak MD [facility] ([facility]) [address] [place] [address] [id number] 5 06/13/2024 15:39:48 06/13/2024 16:35:40 Bacterial urinary infection 869651641 N39.0 A49.9 Improved but switching antibiotic s due to bite. Cyst of left ovary 70006 47474 7740994 N83.202 Rupture of anterior cruciate ligament of right knee 6706940452 9476292 S83.511D surgery scheduled in June. She is cleared for surgical repair of her knee. Dog bite - wound 6611729 05 W54.0XXA L08.9 MIld swelling and erythema of the thumb. [id number] Ciro Mak MD [facility] ([facility]) [address] [place] [address] 09/12/2024 13:51:45 09/12/2024 14:33:06 Acute hepatitis C 617656383 B17.10 Diagnosed at [facility]. Genotype not done. Inflammato ry disease of liver 647871745 K75.9 elevated LFT's from tylenol overuse with recent diagnosis of Hepatitis C. Was not evident one year ago with negative test in July,. Generalize d abdominal pain 340797487 R10.84 RUQ and generalize d. Probably from hepatitis Health Concerns Section Related Observation LastModified by Organization Detai ls LastModified Time None Recorded Concern Status LastModified by Organization Details LastModified Time None Recorded Advance Directives Directive None Recorded Payers Insurance Date Sequence Insurance Name Policy Number Policy Tovar Covered Member ID Tovar Member ID Guarantor Name 09/09/2024 [place] Marydanitza Nesbitt [id number] Mary Danitza Nesbitt 09/09/2024 [place] [facility] (INSTITUTIONAL) Mary Danitza Nesbitt [id number] Maryjennifer Nesbitt 09/09/2024 [facility] (MEDICAID HMO) Mary Danitza Nesbitt [id number] Mary Danitza Nesbitt 09/09/2024 [facility] (MEDICAID HMO) Marydanitza Nesbitt [id number] Mary Danitza Nesbitt 05/26/2024 [facility] (MEDICAID HMO) Marydanitza Nesbitt [id number] Maryjennifer Nesbitt Notes Date Note Type Note Provider Name and Address Organization Details Recorded Time 01/16/2024 text/html Back PainReporte d by PatientHPIFor location, patient reportscervical __,thoracic __, andlumbar __. For quality, patient reportssharp. For severity, patient reportsunchanged. For timing, patient reportschronic. For alleviating factors, patient reportsnone. For aggravating factors, patient reportsambulation,sitt ing, andstanding. DiarrheaReported by PatientHPIFor quality, patient reportswatery,soft, andloose. For associated symptoms, patient reportsabdominal pain,nausea, andvomiting. For severity, patient reportsmoderate. For duration, patient reportschronic (>1 month). For onset/timing, patient reportsfrequent.Contin ues to have nausea, vomiting and diarrhea. Low grade fever. Ear Pain Brief HPIReported by PatientHPIFor quality, patient reportsthrobbing painandaching pain. For severity, patient reportsfever (last week.). For associated symptoms, patient reportsnasal congestion,nasal discharge,sense of fullness/pressure, andsore throat. For location, patient reportsbilateral. For onset/timing, patient reportsstarted 1weeks agoandconstant pain. Ciro Mak MD [address] [place] [address], [phone], [facility] 01/16/2024 11:05:49 05/26/2024 text/html Skin LesionRepor abhijeet by Patient walk in patientpatient is here for a dog bite on her right thump from 3 weeks ago, patient thinks that it is infected, patient is also wanted to talk about her right knee, patient fell 3 months ago and went to the ER and X RAY was normal but then she a week ago she tried to put weight on it and fell again and now thinks that she has done more damage.she hyperflexed when she slipped on the ice. pt has not followed up with PCP about this.last Tdap was 08/2022 per our chart. Ihsan Mora DO [address] [place] [address], [phone], [facility] 05/26/2024 17:18:28 05/28/2024 text/html Had a fall back in February on the ice and went to walk in yesterday on 05/26/24 and had an xray done and was told that she needed an MRI done.Right Knee is still hurting her and still having swelling. Pain is constant. Ciro Mak MD [address] [place] [address], [phone], [facility] Calvin Humphries 05/28/2024 15:15:31 09/12/2024 text/html Went to ER on 09/06/24 and was admitted to ICU due to her liver enzymes were elevated.Was told at the hospital that she had Hep C. Would like to discuss. Ciro Mak MD [address] [place], [phone], [facility] Calvin Humphries 09/12/2024 14:32:01 OBGyn Episode No OBEpisode recorded.
--- OUTSIDE RECORDS SUMMARY | 2024-09-13 21:43 | XMS_ITS | Continuity of Care Document ---
Author Organization RILEY Hurtado [facility], [place], [facility] ([facility]) Address [address] [place] [address] Care Team Providers Care Real Estate Officer Name Role Phone CIRO MAK Primary Care Provider Assessment No assessment recorded. Plan of Treatment Reminders Order Date Submit Date Provider Last Modified By Organization Details Last Modified Time Details Appointments HOSPITAL F/U30 2024 02:15P Ani Mak MD Not available Not available Not available Lab hepatic function panel, serum 2024 025 [facility], [address] [place] [address], [id number], 09/12/2024 14:31:58 hepatitis C virus Ab, serum 2024 025 [employer] [facility], [address] [place] [address], [facility] [address] [place], [address], 09/12/2024 14:32:39 hepatitis C genotype, serum or plasma 2024 025 [email or web address] [facility] [address] [place], [address], 09/12/2024 14:31:54 Referral None recorded. Procedures None recorded. Surgeries None recorded. Imaging None recorded. Medication Orders None recorded. Patient TargetsNo targets recorded. Patient InstructionsNo instructions recorded. Reason for Referral None Reported. Problems Name Problem SNOMED Code Status Onset Date Resolution Date Notes Provider Name and Address Organization Details Recorded Time Depressive disorder 51300259 Active 2022 GEO MORAAZAR rubio, [facility] 17:49:55 Migraine 15278766 Active 2022 MIGRAI NE; Impres comfort: daily migrai ne. GEO MORAAZAR rubio [facility] 5 17:51:24 Chronic pain syndrome 615720280 Active 2022 GEO rubio, [facility] 5 17:49:55 Major depressive disorder 617239877 [facility] 17:49:55 Bipolar disorder 25131208 [facility] 17:49:54 Essential hypertensio n 46420079 [facility] 17:49:55 Livedo reticularis 343216710 Active [facility] 17:49:54 Hyperesthes ia 99541857 Active [facility] 17:49:54 Gastroesoph ageal reflux disease 284194641 Active [facility] 17:49:54 Seizure disorder 284016936 [facility] 17:49:54 Cyst of left ovary 5803620681226 9108 Active 2022 Ciro Mak MD [address] [place] [address], [phone], [facility] 16:21:39 Generalized anxiety disorder 98124516 Active 2023 GOE rubio, [facility] 17:49:54 Pulmonary embolism with pulmonary infarction 1115801367650 Active 2023 GEO VILLAGRANRIS rmairo, [facility] 17:50:09 Hypercoagul ability state 21795098 Active 2023 GEO VILALGRANAZAR rubio, [facility] 17:49:55 Chronic diarrhea 413626809 Active 2023 GEO VILLAGRANAZAR rubio, [facility] 17:49:54 Genital herpes simplex 17114470 Active 2023 GEO VILLAGRANRIS [facility], [facility] 17:49:54 Derangement of right knee 7707689567435 9109 Active 2024 GEO VILLAGRANRIS ramiro, [facility] 17:52:05 Bacterial urinary infection 336741601 Active 2024 Ciro Mak MD [address] [place] [address], [phone], [facility] 16:21:00 Rupture of anterior cruciate ligament of right knee 5058773189586 9103 Active 2024 Ciro Mak MD [address] [place] [address], [phone], [facility] 16:22:23 Dog bite - wound 435635608 Active 2024 Ciro Mak MD [address] [place] [address], [phone], [facility] 16:23:30 Acute hepatitis C 197468567 Active 2024 Ciro Mak MD [address] [place] [address], [phone], [facility] 14:23:53 Inflammator y disease of liver 802111112 Active 2024 Ciro Mak MD [address] [place] [address], [phone], [facility], [place] 14:24:06 Generalized abdominal pain 105210807 Active 2024 Ciro Mak MD [address] [place] [address], [phone], [facility], [place] 14:25:57 Problem Notes None recorded. Procedures Surgical History Date Name Laterality Status Provider Name and Address Organization Details Recorded Time Cholecystectomy completed [facility], [place] 06/11/2023 15:56:58 Tubal Ligation completed [facility], [place] 06/11/2023 15:57:02 Total Hysterectomy completed [facility], [place] 06/11/2023 15:57:06 removal of displaced intrauterine contraceptive device completed [facility] 06/11/2023 15:57:27 Ovarian Cystectomy completed [facility], [facility] 06/11/2023 15:57:42 Laparoscopy completed [facility], [facility] 06/11/2023 15:57:47 right [facility]oph[facility] 10:30:05 Imaging Results None recorded. Procedure Notes None recorded. Medical Equipment None Reported. Allergies Allergen ID Allergen Name Allergen Category Reaction Reaction Severity Criticality Documentation Date Start Date Code Code System Note Provider Name and Address Organization Details Recorded Time 1788 amoxicill in medicatio n hives mild low 06/07/2022 723 RxNorm Wilmanamrata [facility] 4 15:52:07 1789 latex environme nt,medica tion hives mild low 06/07/2022 63054 91 RxNorm Wilmanamrata [facility] 4 15:52:19 56181 methotrex ate medicatio n headache vomiting moderate mild low 11/21/2022 6851 RxNorm Wilma [facility] 4 15:52:27 41935 methylpre dnisolone medicatio n tachycard ia moderate low 06/11/2023 6902 RxNorm [place]man[place]rata [facility] 4 15:54:04 Medications Name Sig Start Date [...] Pruett; Recorded 05/09/19 23 10:52AM by Geo Mora, Office Visit; Not Available Not Available Not [...] lable citalopra m daily 01/16 completed From [facility] [place]; 0; Recorded 05/09/19 10:54AM by Geo Mora, Office Visit; Not Available Not Available Not Available folic acid daily 02/16 completed 0; Recorded 05/09/19 10:52AM by Geo Mora, Office Visit; Not Available Not Available Not Available methotrex ate every y. 01/[address] Salcedo; 0; Recorded 05/09/19 10:38AM by Geo Mora, Office Visit; Not Available Not Available Not Available naproxen two times daily, as needed 01/16 completed Recorded 05/07/19 22 4:21PM by Ciro Mak MD, Office Visit; Refill Quantity : 60; Tablet; Not Available Not Available Not Available sumatript an succinate as needed 01/16 completed Recorded 05/09/19 23 10:39AM by Geo Mora, Office Visit; Refill Quantity : 8; Tablet; Not Available Not Available Not Available BuSpar daily 01/16 completed From [facility] [place]; 0; Recorded 05/09/19 23 10:49AM by Geo Mora, Office Visit; Not Available Not Available Not Available ondansetr on three times daily, as needed 02/16 completed Recorded 05/09/19 23 10:39AM by Geo Mora, Office Visit; Refill Quantity : 30; Tablet; [...] completed Recorded 07/06/19 21 4:06PM by Geo Mora, Office Visit; Refill Quantity : 1; Bottle; Not Available Not Available Not Available Narcan 4 mg/actuat ion nasal spray call 911. administ er a single spray of narcan in one nostril. repeat every 2-3 minutes as needed if no or minimal response ; Refer question s about refills only to the pharmaci st who fulfille d this [place] state standing [...] and Address Organization Details Last Updated DateTime 5 149.86 cm 22 kg/m2 68957.5 7 g 100 % 100 % 94 /min 110/80 mm[Hg] GEO MORA [facility] 14:05:44 Social History Question Answer Notes LastModified by Organizat ion Details LastModified Time Tobacco Smoking Status Never Smoker Wilma rubio, [facility] 06/11/2023 15:56:49 What Was The Date Of Your Most Recent Tobacco Screening? 06/11/2023 Information not available 06/11/2023 Sex: Unknown Functional Status Question Answer Note LastModified by Organizat ion Details LastModified Time Do you use any [...] History Condition Response Coronary Artery Disease N Gout N Other N Blood Diseases N Kidney Stones N Hyperthyroidism N Blood Transfusion N Breast Cancer N Depression Y Hypothyroidism N Lung Disease N COPD N Defects or Inherited Disease N Developmental or Behavioral Disorders N Breast Problem N Difficulty Swallowing N Anesthesia Complications N Meniere's disease N Anxiety Disorder Y Muscle, Joint, or Bone Problems N Vision or Eye Problems N Arthritis N Polyps N Infertility N Cancer N Varicosities N Stroke N Endometriosis N Bladder or Kidney Problems N High Cholesterol N Liver Disease N Fibromyalgia N Headaches Y Kidney Disease N Allergies/Hayfever N Heart Problems N Ear or Hearing Problems N Hospitalizations N Thyroid Problems N GI Problems N ADD/ADHD N Skin Problems N Eating Disorder N Anemia N Constipation N Mental Illness N Ovarian Cancer N Diabetes N Bedwetting N Seizures/Epilepsy Y Tuberculosis N Eczema N Diverticulitis N Abuse/Domestic Violence N Asthma N Reflux/GERD Y Hepatitis N Heart Disease N Pulmonary Embolism N Pre-Eclampsia N Hypertension Y Chronic Ear Infections N Osteoporosis N Chicken Pox N Autism Spectrum Disorder (ASD) N Thrombophilias N Gynecological HistoryNo gynecological history recorded. Obstetrics History GPAL:G 0 P 0 0 0 0 Immunizations Vaccine Type Date Status Note Provider Nam e and Address Organization Details Recorded Time Tdap 3 completed GEO rubio, [facility] 02/16/2023 15:11:53 Influenza, split virus, trivalent, preservative 6 completed GEO rubio [facility] 02/16/2023 15:11:53 Influenza, split virus, quadrivalent, preservative 9 completed GEO rubio [facility] 02/16/2023 15:11:52 Past Encounters Encounter ID Performer Location Encounter Start Date Encounter Closed Date Diagnosis/Indication Diagnosis SNOMED-CT Code Diagnosis ICD10 Code Diagnosis Note [id number] Ciro Mak MD [facility] [address] [place] [address] 09/12/2024 13:51:45 09/12/2024 14:33:06 Acute hepatitis C 299837953 B17.10 Diagnosed at [facility]. Genotype not done. Inflammato ry disease of liver 238346596 K75.9 elevated LFT's from tylenol overuse with recent diagnosis of Hepatitis C. Was not evident one year ago with negative test in July,. Generalize d abdominal pain 385762044 R10.84 RUQ and generalize d. Probably from hepatitis Health Concerns Section Related Observation LastModified by Organization Detai ls LastModified Time None Recorded Concern Status LastModified by Organization Details LastModified Time None Recorded Payers Encounter Date Sequence Insurance Name Policy Number Policy Tovar Covered Member ID Tovar Member ID Guarantor Name 09/12/2024 1 [id number] (MEDICAID HMO) Mary Nesbitt [id number] Mary Nesbitt Notes Date Note Type Note Provider Name and Address Organization Details Recorded Time 09/12/2024 text/html Went to ER on 09/06/24 and was admitted to ICU due to her liver enzymes were elevated.Was told at the hospital that she had Hep C. Would like to discuss. Ciro Mak MD [address] [place] [address], [phone], [facility], [place] 09/12/2024 14:32:01 OBGyn Episode No OBEpisode recorded.
[2024-09-13 21:45] VITALS: BP 101/64; PULSE 116; RESP 16; TEMP 36.8; O2SAT 97; BMI 23.4
[2024-09-13 22:43] LABS: Hematocrit 38.0 % (36-47); Hemoglobin 11.40 g/dL (11.27-16.99); Mean Corpuscular HGB Conc 30.0 g/dL (30-55); Mean Corpuscular Hemoglobin 26.5 pg (27-33); Mean Corpuscular Volume 88.4 fl (85-98); Nucleated Red Blood Cells % 0 %; Platelet Count 459 10^3/cmm (157-399); Red Blood Count 4.30 10^6/uL (3.85-5.65); White Blood Count 9.93 10^3/uL (3.29-11.43)
[2024-09-13 23:02] VITALS: BP 130/81; PULSE 90; RESP 16; O2SAT 99
[2024-09-13 23:04] LABS: Alanine Aminotransferase 440 U/L (0-33); Albumin Level 4.4 g/dL (3.5-5.2); Alkaline Phosphatase 182 U/L (35-105); Anion Gap 21.2 (5-19); Aspartate Amino Transferase 50 U/L (0-32); Blood Urea Nitrogen 17 mg/dL (6-20); Calcium 9.4 mg/dL (8.5-10.5); Carbon Dioxide 18 mmol/L (22-29); Chloride 102 mmol/L (98-107); Creatinine Clr Calc Pharmacy 59.8585; Globulin 3.6 g/dL (1.3-4.6); Glucose 88 mg/dL (65-115); Lipase 34 U/L (13-60); Osmolality Calculated 285 mOsm/kg (285-295); Potassium 4.2 mmol/L (3.5-5.1); Sodium 137 mmol/L (136-145); Total Protein 8.0 g/dL (6.6-8.7)
--- NOTE | 2024-09-13 23:52 | CTR_ITS ---
PROCEDURE INFORMATION: Exam: CT Abdomen And Pelvis With Contrast Exam date and time: 09/14/2024 12:02 AM Age: 33 years old Clinical indication: Nausea and vomiting; Abdominal pain; Prior surgery; Surgery date: 6+ months; Surgery type: Gb. Hysterectomy; Bilat flank pain with n/v. Discharged from hospital four days ago for pyelonephritis. ; Additional info: B flank pain, vomiting TECHNIQUE: Imaging protocol: Computed tomography of the abdomen and pelvis with contrast. Radiation optimization: All CT scans at this facility use at least one of these dose optimization techniques: automated exposure control; mA and/or kV adjustment per patient size (includes targeted exams where dose is matched to clinical indication); or iterative reconstruction. Contrast material: OMNI 350; Contrast volume: 80 ml; Contrast route: INTRAVENOUS (IV); COMPARISON: CT abdomen pelvis w con* [id number] 09/08/2024 10:39 AM RADIATION DOSE METRICS: Total DLP (mGy-cm): 307.61 FINDINGS: Liver: Normal. No mass. Gallbladder and biliary ducts: Stable cholecystectomy. Pancreas: Normal. No ductal dilation. Spleen: One or more accessory splenules. Adrenal glands: Normal. No mass. Kidneys and ureters: Normal. No hydronephrosis. Stomach and bowel: Unremarkable. No obstruction. No mucosal thickening. Appendix: No evidence of appendicitis. Intraperitoneal space: Unremarkable. No free air. No significant fluid collection. Vasculature: One or more calcified pelvic phleboliths. Lymph nodes: Unremarkable. No enlarged lymph nodes. Urinary bladder: Unremarkable as visualized. Reproductive: Stable hysterectomy. 1.1 cm left ovarian cyst. Bones/joints: Partial sacralization of the left portion of L5 with unilateral left-sided articulation which can be a source of chronic low back pain. Soft tissues: Unremarkable. CT/CT abdomen pelvis w con* [id number] IMPRESSION: 1. Stable cholecystectomy. 2. Stable hysterectomy. 3. 1.1 cm left ovarian cyst. 4. No acute abdominal findings.
[2024-09-13 23:55] LABS: HCG, Serum Qual Negative (Negative)
[2024-09-14] MEDS: iohexol 350 mg/mL 500 mL Btl (per mL) IV (00:05)
[2024-09-14 00:07] LABS: Add Urine Microscopic? YES; Glucose Urine UA Negative (Normal); Nitrate Urine Negative (Negative); Specific Gravity, Urine 1.040 (1.005-1.030)
[2024-09-14] MEDS: ondansetron 2 mg/ML SDV 2 mL 4 MG IVP (00:13)
[2024-09-14] MEDS: morphine 4 mg/mL SDV 1 mL IVP (00:13)
[2024-09-14 00:14] VITALS: BP 105/90; PULSE 94; RESP 16; O2SAT 100
--- NOTE | 2024-09-14 00:51 | W.ED.ABDPA2 ---
HPI - Abdominal Pain General: Chief Complaint: Abdominal Pain Stated Complaint: ABD Pain Time Seen by Provider: 09/13/24 23:08 History of Present Illness: 33-year-old female who was hospitalized recently for unintentional Tylenol overdose and significant elevation in her liver enzymes. She presents with bilateral flank pain and abdominal pain with several episodes of vomiting in the last 24 hours. No fever. No diarrhea. Related Data Home Medications ?Medication ?Instructions ?Recorded ?Confirmed alprazolam 0.25 mg tablet 0.25 mg PO TID PRN Anxiety 08/06/23 09/07/24 topiramate 200 mg tablet 200 mg PO BID 02/21/24 09/07/24 apixaban 5 mg tablet (Eliquis) 5 mg PO BID 09/07/24 09/07/24 Previous Rx's ?Medication ?Instructions ?Recorded hydrocodone 5 mg-acetaminophen 325 1 tab PO Q6H PRN pain #30 tabs 07/16/24 mg tablet fluoxetine 40 mg capsule (Prozac) 40 mg PO DAILY #30 caps 09/01/24 gabapentin 300 mg capsule 300 mg PO QID 30 days #120 caps 09/09/24 sennosides 8.6 mg tablet 8.6 mg PO DAILY #20 tabs 09/09/24 (Evac-U-Gen (sennosides)) cefdinir 300 mg capsule 300 mg PO BID #14 caps 09/14/24 ondansetron 4 mg disintegrating 4 mg PO TID PRN Nausea And 09/14/24 tablet Vomiting #14 tabs tramadol 50 mg tablet 50 mg PO Q4H PRN Mild Pain (Scale 09/14/24 Score 1-4) #10 tabs Allergies Allergy/AdvReac Type Severity Reaction Status Date / Time methylprednisolone Allergy Severe ALGY-Anaphy Verified 08/07/24 11:54 laxis Latex, Natural Rubber Allergy Intermediate rash, hives Verified 08/07/24 11:54 amoxicillin Allergy ALGY-Hives Verified 08/07/24 11:54 methotrexate AdvReac Intermediate migraines, Verified 08/07/24 11:54 N/V PFSH ED PFSH: Medical History (Updated 09/14/24 @ 00:58 by Edward Hilario, ) Bipolar disorder, unspecified Family history of colon cancer Bilateral pulmonary embolism Vapes nicotine containing substance Seizures Hx of migraines Ovarian mass, right Family history of psoriasis in father High risk medication use Inflammatory back pain Inflammatory arthritis Psychiatric care Other long-term (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 Mosher at [facility] History of tubal ligation 12/2015- per Dr. Mosher at [facility] H/O removal of cyst [address] Mosher Family History Mother Stroke Hyperlipidemia Family history of thyroid problem Hypertension Cancer of tongue Father Degenerative disc disease Diabetes Unknown Breast cancer maternal great aunt Grandmother Ovarian cancer maternal Uterine cancer maternal Other Cancer Chronic kidney disease (CKD) Rheumatoid arthritis Denies family history of Lupus Social History Smoking and tobacco/nicotine status: never used tobacco/nicotine Second hand smoke exposure: No Alcohol intake: never Substance/Drug Use: never Physical Exam Const: COMMON NORMALS: no acute distress GENERAL APPEARANCE: cooperative; not ill appearing and not frail appearing HENMT: COMMON NORMALS: normocephalic, atraumatic and Normal external nose present HEAD & SCALP: normocephalic and atraumatic FACE & SINUS: normal facial exam and face symmetric NOSE: Normal external nose present Eye: COMMON NORMALS: Equal, round and reactive pupils present and EOMs intact bilaterally PUPIL: Yes Equal, round and reactive pupils present Neck/C-Spine: GENERAL: Yes trachea midline Chest: CHEST: Yes Symmetrical chest wall rise Resp: COMMON NORMALS: normal respiratory effort, No retractions, No use of accessory muscles and clear to auscultation bilaterally AUSCULTATION: clear to auscultation bilaterally Cardio: COMMON NORMALS: regular rate and regular rhythm RATE: regular rate RHYTHM: regular rhythm GI: COMMON NORMALS: Normal to inspection, nondistended, normoactive bowel sounds present : BLADDER/KIDNEY EXAM: Yes CVA tenderness bilateral Back/Pelvis: GENERAL BACK: Yes CVA tenderness Extremity: COMMON NORMALS: no pedal edema Neuro: GREGORIO COMA SCALE: document GCS findings Gregorio coma scale eye opening: Spontaneous Gregorio coma scale verbal response: Orientated Gregorio coma scale motor response: Obey commands Gregorio coma scale total score: 15 SENSORY EXAM: Yes extremities (intact) Psych: COMMON NORMALS: speech normal SPEECH: Yes normal speech Skin: COMMON NORMALS: no rashes or lesions noted GENERAL SKIN EXAM: no rashes or lesions noted Course Vital Signs: Vital signs: Vital Signs Temperature 98.3 F 09/13/24 21:45 Pulse Rate 87 09/14/24 01:17 Respiratory Rate 16 09/14/24 01:17 Blood Pressure 129/84 09/14/24 01:17 Pulse Oximetry 100 09/14/24 01:17 Oxygen Delivery Me thod Room Air 09/14/24 00:14 MDM - Abdominal Pain Medical Decision Making This patient's vitals are stable here. She is afebrile. CBC is not remarkable. BMP shows a bicarbonate level of 18 with a creatinine of 1.1. Liver enzymes are improved from prior down to 440 ALT and 50 AST. Her bilirubin is 0.3. Abdominal CT shows no acute findings. She does have 1+ leukocyte Estrace, 21-50 white urinalysis indicative of urinary tract infection likely causing her flank pain. This will be treated. Is likely a continued urinary tract infection from her prior admission. Lab Data 09/13/24 22:37 09/13/24 22:37 Labs/Radiology: Radiology Impressions Abdomen/Pelvis CT 09/13/24 23:52 IMPRESSION: 1. Stable cholecystectomy. 2. Stable hysterectomy. 3. 1.1 cm left ovarian cyst. 4. No acute abdominal findings. Laboratory Results WBC 9.93 10^3/uL (3.29-11.43) 09/13/24 22:37 RBC 4.30 10^6/uL (3.85-5.65) 09/13/24 22:37 Hgb 11.40 g/dL (11.27-16.99) 09/13/24 22:37 Hct 38.0 % (36-47) 09/13/24 22:37 MCV 88.4 fl (85-98) 09/13/24 22:37 MCH 26.5 pg (27-33) L 09/13/24 22:37 MCHC 30.0 g/dL (30-55) 09/13/24 22:37 RDW 16.9 % (12.1-15.1) H 09/13/24 22:37 Plt Count 459 10^3/cmm (157-399) H 09/13/24 22:37 MPV 9.6 fL (7.4-10.4) 09/13/24 22:37 Neut % (Auto) 48.7 % 09/13/24 22:37 Lymph % (Auto) 41.3 % 09/13/24 22:37 Rankin % (Auto) 6.0 % 09/13/24 22:37 Eos % (Auto) 2.9 % 09/13/24 22:37 Baso % (Auto) 0.7 % 09/13/24 22:37 Neut # (Auto) 4.83 10^3/uL (1.8-7.7) 09/13/24 22:37 Lymph # (Auto) 4.1 10^3/uL (0.8-4.8) 09/13/24 22:37 Rankin # (Auto) 0.6 10^3/uL (0.2-0.9) 09/13/24 22:37 Eos # (Auto) 0.3 10^3/uL (0.0-0.8) 09/13/24 22:37 Baso # (Auto) 0.1 10^3/uL (0.0-0.1) 09/13/24 22:37 Nucleated RBC % (auto) 0 % 09/13/24 22:37 Nucleated RBCs # 0.0 /100WBC 09/13/24 22:37 Sodium 137 mmol/L (136-145) 09/13/24 22:37 Potassium 4.2 mmol/L (3.5-5.1) 09/13/24 22:37 Chloride 102 mmol/L (98-107) 09/13/24 22:37 Carbon Dioxide 18 mmol/L (22-29) L 09/13/24 22:37 Anion Gap 21.2 (5-19) H 09/13/24 22:37 BUN 17 mg/dL (6-20) 09/13/24 22:37 Creatinine 1.1 mg/dL (0.5-0.9) H 09/13/24 22:37 GFR Calculation 56.9 mL/min (90-130) L 09/13/24 22:37 Glucose 88 mg/dL (65-115) 09/13/24 22:37 Calculated Osmolality 285 mOsm/kg (285-295) 09/13/24 22:37 Calcium 9.4 mg/dL (8.5-10.5) 09/13/24 22:37 Total Bilirubin 0.3 mg/dL (0.15-1.2) 09/13/24 22:37 AST 50 U/L (0-32) H 09/13/24 22:37 ALT 440 U/L (0-33) H 09/13/24 22:37 Alkaline Phosphatase 182 U/L (35-105) H 09/13/24 22:37 C-Reactive Protein 3.0 mg/L (0.0-4.9) 09/13/24 22:37 Total Protein 8.0 g/dL (6.6-8.7) 09/13/24 22:37 Albumin 4.4 g/dL (3.5-5.2) 09/13/24 22:37 Globulin 3.6 g/dL (1.3-4.6) 09/13/24 22:37 Lipase 34 U/L (13-60) 09/13/24 22:37 HCG, Qual Negative (Negative) 09/13/24 22:37 Urine Color Yellow (Yellow) 09/13/24 22:56 Urine Appearance Cloudy (CLEAR) A 09/13/24 22:56 Urine pH 5.0 (5-7) 09/13/24 22:56 Ur Specific [place] 1.040 (1.005-1.030) H 09/13/24 22:56 Urine Protein Trace (Negative) A 09/13/24 22:56 Urine Glucose (UA) Negative (Normal) 09/13/24 22:56 Urine Ketones Trace (Negative) 09/13/24 22:56 Urine Blood Negative (Negative) 09/13/24 22:56 Urine Nitrate Negative (Negative) 09/13/24 22:56 Urine Bilirubin Negative (Negative) 09/13/24 22:56 Urine Urobilinogen 1.0 mg/dL (Negative) 09/13/24 22:56 Ur Leukocyte Esterase 1+ (Negative) A 09/13/24 22:56 Urine RBC 0-2 /hpf (0-2) 09/13/24 22:56 Urine WBC 21-50 /hpf (0-5) H 09/13/24 22:56 Ur Squamous Epith Cells 0-5 /hpf (0-5) 09/13/24 22:56 Amorphous Sediment Not Reportable 09/13/24 22:56 Urine Bacteria None seen /hpf (NONE) 09/13/24 22:56 Hyaline Casts 5.77 /lpf 09/13/24 22:56 All radiology interpretation(s) finalized by discharge Discharge Plan Discharge Patient Disposition: Home Clinical Impression: Pyelonephritis Urinary tract infection Qualifiers: Urinary tract infection type: acute cystitis Hematuria presence: without hematuria Qualified Code(s): N30.00 - Acute cystitis without hematuria Condition: Stable Prescriptions: New cefdinir 300 mg capsule 300 mg PO BID Qty: 14 0RF Continued tramadol 50 mg tablet 50 mg PO Q4H PRN (Reason: Mild Pain (Scale Score 1-4)) Qty: 10 0RF ondansetron 4 mg tablet,disintegrating 4 mg PO TID PRN (Reason: Nausea And Vomiting) Qty: 14 0RF No Action fluoxetine [Prozac] 40 mg capsule 40 mg PO DAILY Qty: 30 2RF topiramate 200 mg tablet 200 mg PO BID hydrocodone-acetaminophen 5-325 mg tablet 1 tab PO Q6H PRN (Reason: pain) Qty: 30 0RF Eliquis 5 mg tablet 5 mg PO BID gabapentin 300 mg capsule 300 mg PO QID 30 Days Qty: 120 3RF sennosides [Evac-U-Gen (sennosides)] 8.6 mg tablet 8.6 mg PO DAILY Qty: 20 0RF alprazolam 0.25 mg tablet 0.25 mg PO TID PRN (Reason: Anxiety) Discharge Orders: Discharge ED (Routine); Ordered 09/14/24 Ordered By: Edward Hilario Referrals: Joaquin Mak MD [Primary Care Provider, Family Practice] - 1-3 days Patient Instructions: Kidney Infection (ED), Opioid Safety, Pain Management, Patient Portal & Ben Instructions Activity Restrictions/Additional Instructions: Drink plenty of liquids. Use nausea medication scheduled for the next 24 hours whether you feel nauseated or not every 4 hours. You may use it as needed following that. Antibiotics as directed. Return for fever greater than 100 ?F despite 2-3 more doses of antibiotics, vomiting liquids or medications despite treatment, worsening pain despite treatment, other concerning symptoms. Call your doctor Sunday for follow-up appointment. Your urine will need to be retested to ensure you are clearing your urine infection. Print Language: Moroccan Coding Level of Care Code ED Inker for Mark Berg
[2024-09-14 01:17] VITALS: BP 129/84; PULSE 87; RESP 16; O2SAT 100
[2024-09-14] MEDS: cefTRIAXone 1,000 mg SDV 1000 MG IVP (01:17)
== END 2024-09-14 01:27 | disposition home or self-care (01) ==
PROVIDERS: Emergency Medicine; Emergency Provider Emergency Medicine; PCP Family Medicine
DX: N30.00 Acute cystitis without hematuria (principal); N12 Tubulo-interstitial nephritis, not specified as acute or chronic; Z79.01 Long term (current) use of anticoagulants
CPT/HCPCS: 36415; 74177; 80053; 81001; 83690; 84703; 85025; 86140; 87086; 96361; 96374; 96375; 99285; J0696; J2270; J2405; J7030

== ENCOUNTER 2024-09-26 15:03 | Emergency (ER) | payer MEDICAID, SELFPAY ==
[2024-09-26] VITALS (7 sets, daily range): BP systolic 98–114; BP diastolic 63–69; PULSE 84–108; RESP 16–17; TEMP 36.6; O2SAT 96–100; BMI 23.4
--- OUTSIDE RECORDS SUMMARY | 2024-09-26 15:12 | XMS_ITS | Clinical Summary ---
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
--- OUTSIDE RECORDS SUMMARY | 2024-09-26 15:12 | XMS_ITS | Clinical Summary ---
Author Organization [facility] Address [address] [place] [address] Care Team Providers Care Diecast Machine Operator Name Role Phone Joaquin Mak MD Primary Care Provider [phone] Allergies Active Allergy Reactions Criticality Noted Date [...] Comments Blood Pressure 119/75 12/29/2019 3:14 PM INSPECTOR [employer]ASSEMBLIES Pulse 75 12/29/2019 3:14 PM INSPECTOR [employer]SEM[employer] Temperature 37.2 C (98.9 F) 12/29/2019 2:03 PM INSPECTOR [employer]SEMBL[employer] Respiratory Rate 18 12/29/2019 3:14 PM INSPECTOR [employer]SEMBL[employer] Oxygen Saturation 99% 12/29/2019 3:14 PM INSPECTOR [employer]ASSEMBLIES Inhaled Oxygen Concentration - - Weight 47.6 kg (105 lb) 12/29/2019 2:03 PM INSPECTOR [employer]SEM[employer] Height 149.9 cm (4' 11 ) 12/29/2019 2:03 PM INSPECTOR [employer]SEMBL[employer] Body Mass Index 21.21 12/29/2019 2:03 PM INSPECTOR [employer]SEM[employer] Plan of Treatment Health Maintenance Due Date Last Done Comments HPV VACCINES (1 - 3-dose series) 2004 DTAP/TDAP/TD VACCINES (1 - Tdap) 2008 HEPATITIS B VACCINES (1 of 3 - 19+ 3-dose series) 09/19 HPV/Cotest (21-29) 2010 CERVICAL CANCER SCREENING 10/03/2019 HPV/Cotest (30-65) 10/03/2019 PAP SMEAR 10/03/2019 INFLUENZA VACCINE (#1) 2024 Insurance Care Teams Diecast Machine Operator Relationship Specialty Start Date End Date Joaquin Mak MD [address] [id number] PCP - General Family Practice 12/29/19
--- NOTE | 2024-09-26 15:57 | W.ED.FEMALGU ---
HPI - Female Genitourinary General: Chief complaint: Urogenital-Female Stated complaint: N/V Dizzy Peeing brown Time Seen by Provider: 09/26/24 15:57 History of Present Illness: 33-year-old female with a history of bipolar disorder, pulmonary embolism on chronic Eliquis therapy., Chronic pain syndrome on hydrocodone and tramadol, anxiety who presents emergency room with nausea, vomiting, dizziness, lightheadedness and dark urine. She was seen in the emergency room recently and diagnosed with UTI and sent home on Omnicef. No focal abdominal pain. No altered mental status. No known fevers. Related Data Home Medications ?Medication ?Instructions ?Recorded ?Confirmed alprazolam 0.25 mg tablet 0.25 mg PO TID PRN Anxiety 08/06/23 09/07/24 topiramate 200 mg tablet 200 mg PO BID 02/21/24 09/07/24 apixaban 5 mg tablet (Eliquis) 5 mg PO BID 09/07/24 09/07/24 Previous Rx's ?Medication ?Instructions ?Recorded hydrocodone 5 mg-acetaminophen 325 1 tab PO Q6H PRN pain #30 tabs 07/16/24 mg tablet fluoxetine 40 mg capsule (Prozac) 40 mg PO DAILY #30 caps 09/01/24 gabapentin 300 mg capsule 300 mg PO QID 30 days #120 caps 09/09/24 sennosides 8.6 mg tablet 8.6 mg PO DAILY #20 tabs 09/09/24 (Evac-U-Gen (sennosides)) cefdinir 300 mg capsule 300 mg PO BID #14 caps 09/14/24 ondansetron 4 mg disintegrating 4 mg PO TID PRN Nausea And 09/14/24 tablet Vomiting #14 tabs tramadol 50 mg tablet 50 mg PO Q4H PRN Mild Pain (Scale 09/14/24 Score 1-4) #10 tabs ciprofloxacin HCl 500 mg tablet 500 mg PO BID 10 days #20 tabs 09/26/24 ondansetron 8 mg disintegrating 8 mg PO Q6H #14 tabs 09/26/24 tablet promethazine 25 mg rectal 25 mg AL Q6H PRN nausea and 09/26/24 suppository vomiting #12 ea Allergies Allergy/AdvReac Type Severity Reaction Status Date / Time methylprednisolone Allergy Severe ALGY-Anaphy Verified 08/07/24 11:54 laxis Latex, Natural Rubber Allergy Intermediate rash, hives Verified 08/07/24 11:54 amoxicillin Allergy ALGY-Hives Verified 08/07/24 11:54 methotrexate AdvReac Intermediate migraines, Verified 08/07/24 11:54 N/V Review of Systems Narrative: Constitutional symptoms: Negative except as documented in HPI. Skin symptoms: Negative except as documented in HPI. Eye symptoms: Negative except as documented in HPI. ENMT symptoms: Negative except as documented in HPI. Respiratory symptoms: Negative except as documented in HPI. Cardiovascular symptoms: Negative except as documented in HPI. Gastrointestinal symptoms: Negative except as documented in HPI. Genitourinary symptoms: Negative except as documented in HPI. Musculoskeletal symptoms: Negative except as documented in HPI. Neurologic symptoms: Negative except as documented in HPI. Psychiatric symptoms: Negative except as documented in HPI. Endocrine symptoms: Negative except as documented in HPI. 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 Mosher at [facility] History of tubal ligation 12/2015- per Dr. Mosher at [facility] H/O removal of cyst [address] Mosher Family History Mother Stroke Hyperlipidemia Family history of thyroid problem Hypertension Cancer of tongue Father Degenerative disc disease Diabetes Unknown Breast cancer maternal great aunt Grandmother Ovarian cancer maternal Uterine cancer maternal Other Cancer Chronic kidney disease (CKD) Rheumatoid arthritis Denies family history of Lupus Social History Smoking and tobacco/nicotine status: never used tobacco/nicotine Second hand smoke exposure: No Alcohol intake: never Substance/Drug Use: never Physical Exam Narrative: EXAM NARRATIVE: General: Alert, no acute distress. Skin: Warm, dry. Head: Normocephalic, atraumatic. Neck: Supple, trachea midline. Eye: Extraocular movements are intact. Ears, nose, mouth and throat: Tacky oral mucosa Cardiovascular: Regular, Normal peripheral perfusion. Respiratory: Lungs are clear to auscultation, respirations are non-labored, breath sounds are equal, Symmetrical chest wall expansion. Gastrointestinal: Soft, Nontender, Non distended Musculoskeletal: Normal ROM, no deformity. Neurological: Alert and oriented, No focal neurological deficit observed. Psychiatric: Cooperative, appropriate mood & affect. Course Vital Signs: Vital signs: Vital Signs Temperature 97.9 F 09/26/24 15:09 Pulse Rate 96 09/26/24 18:23 Respiratory Rate 17 09/26/24 18:23 Blood Pressure 114/68 09/26/24 18:23 Pulse Oximetry 98 09/26/24 18:23 Oxygen Delivery Me thod Room Air 09/26/24 18:23 MDM - Female Medical Decision Making Medical decision making: Differential diagnosis for patient presenting with generalized weakness including but not limited to and based on the above HPI, review of systems and physical exam: Sepsis. Dehydration. Renal failure. Electrolyte abnormalities. Anemia. Congestive heart failure. Hypotension. Coronary syndrome. Hepatitis. Cirrhosis. Infections such as pneumonia, urinary tract infection, [place] illness, Cellulitis, Viral infections including influenza and Covid-19. Workup: labwork and lab/exam driven imaging ordered to evaluate, rule in and rule out above pathologies. Lab Review: Laboratory results were reviewed and interpreted by myself the emergency room physician. No leukocytosis. No anemia. No renal failure. Urinalysis does show signs of infection with 4+ bacteria and 21-50 whites. I reviewed the patient's medical record. Patient had urine culture sent a few days back and this came back as mixed aamdor. Prior to that she had had some E. coli several months back. Prescription monitoring: Patient receives regular prescriptions for hydrocodone, Xanax and tramadol. Reexamination: Patient remained stable. No increased work of breathing. No altered mental status. No focal motor deficits. Patient finally had some improvement with Dilaudid. I discussed at length that with her continued recurrence of abdominal pain vomiting and urinary tract infections that she may need to follow with her PCP to get in with either gastroenterology or urology or both. I also discussed that for CT scan in the last 3 weeks would be a poor decision. She has got quite a bit of radiation and has not had any helpful findings on any of the CTs that she has had done. Assessment and plan: Abdominal pain Urinary tract infection Dehydration ? IV fluids, IV Zofran, IV Compazine and Benadryl, IV Dilaudid - Discharged home - Discussed plan with patient. Answered any questions. - Evaluation and treatment of this problem were appropriate in the emergency setting. Lab Data 09/26/24 16:00 09/26/24 16:00 Laboratory Results WBC 6.73 10^3/uL (3.29-11.43) 09/26/24 16:00 RBC 4.00 10^6/uL (3.85-5.65) 09/26/24 16:00 Hgb 10.40 g/dL (11.27-16.99) L 09/26/24 16:00 Hct 34.5 % (36-47) L 09/26/24 16:00 MCV 86.3 fl (85-98) 09/26/24 16:00 MCH 26.0 pg (27-33) L 09/26/24 16:00 MCHC 30.1 g/dL (30-55) 09/26/24 16:00 RDW 15.5 % (12.1-15.1) H 09/26/24 16:00 Plt Count 637 10^3/cmm (157-399) H 09/26/24 16:00 MPV 9.4 fL (7.4-10.4) 09/26/24 16:00 Neut % (Auto) 50.6 % 09/26/24 16:00 Lymph % (Auto) 39.4 % 09/26/24 16:00 [place] % (Auto) 6.7 % 09/26/24 16:00 Eos % (Auto) 1.8 % 09/26/24 16:00 Baso % (Auto) 1.2 % 09/26/24 16:00 Neut # (Auto) 3.41 10^3/uL (1.8-7.7) 09/26/24 16:00 Lymph # (Auto) 2.7 10^3/uL (0.8-4.8) 09/26/24 16:00 [place] # (Auto) 0.5 10^3/uL (0.2-0.9) 09/26/24 16:00 Eos # (Auto) 0.1 10^3/uL (0.0-0.8) 09/26/24 16:00 Baso # (Auto) 0.1 10^3/uL (0.0-0.1) 09/26/24 16:00 Nucleated RBC % (auto) 0 % 09/26/24 16:00 Nucleated RBCs # 0.0 /100WBC 09/26/24 16:00 Sodium 136 mmol/L (136-145) 09/26/24 16:00 Potassium 3.4 mmol/L (3.5-5.1) L 09/26/24 16:00 Chloride 100 mmol/L (98-107) 09/26/24 16:00 Carbon Dioxide 21 mmol/L (22-29) L 09/26/24 16:00 Anion Gap 18.4 (5-19) 09/26/24 16:00 BUN 16 mg/dL (6-20) 09/26/24 16:00 Creatinine 0.9 mg/dL (0.5-0.9) 09/26/24 16:00 GFR Calculation 71.7 mL/min (90-130) L 09/26/24 16:00 Glucose 99 mg/dL (65-115) 09/26/24 16:00 Calculated Osmolality 283 mOsm/kg (285-295) L 09/26/24 16:00 Lactic Acid 1.9 mmol/L (0.5-2.2) 09/26/24 16:00 Calcium 9.1 mg/dL (8.5-10.5) 09/26/24 16:00 Total Bilirubin 0.3 mg/dL (0.15-1.2) 09/26/24 16:00 AST 81 U/L (0-32) H 09/26/24 16:00 ALT 79 U/L (0-33) H 09/26/24 16:00 Alkaline Phosphatase 220 U/L (35-105) H 09/26/24 16:00 Total Protein 7.2 g/dL (6.6-8.7) 09/26/24 16:00 Albumin 4.2 g/dL (3.5-5.2) 09/26/24 16:00 Globulin 3.0 g/dL (1.3-4.6) 09/26/24 16:00 Lipase 25 U/L (13-60) 09/26/24 16:00 Urine Color Yellow (Yellow) 09/26/24 17:11 Urine Appearance Cloudy (CLEAR) A 09/26/24 17:11 Urine pH 6.5 (5-7) 09/26/24 17:11 Ur Specific [place] 1.026 (1.005-1.030) 09/26/24 17:11 Urine Protein Trace (Negative) A 09/26/24 17:11 Urine Glucose (UA) Negative (Normal) 09/26/24 17:11 Urine Ketones 2+ (Negative) H 09/26/24 17:11 Urine Blood Negative (Negative) 09/26/24 17:11 Urine Nitrate Negative (Negative) 09/26/24 17:11 Urine Bilirubin Negative (Negative) 09/26/24 17:11 Urine Urobilinogen 1.0 mg/dL (Negative) 09/26/24 17:11 Ur Leukocyte Esterase 2+ (Negative) A 09/26/24 17:11 Urine RBC 0-2 /hpf (0-2) 09/26/24 17:11 Urine WBC 21-50 /hpf (0-5) H 09/26/24 17:11 Ur Squamous Epith Cells 21-50 /hpf (0-5) H 09/26/24 17:11 Amorphous Sediment Not Reportable 09/26/24 17:11 Urine Bacteria 4+ /hpf (NONE) H 09/26/24 17:11 Hyaline Casts 3.30 /lpf 09/26/24 17:11 Urine Opiates Screen Positive ng/mL (Negative) H 09/26/24 17:11 Ur Barbiturates Screen Negative ng/mL (Negative) 09/26/24 17:11 Ur Phencyclidine Scrn Negative ng/mL (Negative) 09/26/24 17:11 Ur Amphetamines Screen Negative ng/mL (Negative) 09/26/24 17:11 U Benzodiazepines Scrn Negative ng/mL (Negative) 09/26/24 17:11 Urine Cocaine Screen Negative ng/mL (Negative) 09/26/24 17:11 U Marijuana (THC) Screen Negative ng/mL (Negative) 09/26/24 17:11 No radiology studies performed this visit Discharge Plan Discharge Patient Disposition: Home Clinical Impression: Urinary tract infection Qualifiers: Urinary tract infection type: acute cystitis Hematuria presence: without hematuria Qualified Code(s): N30.00 - Acute cystitis without hematuria Condition: Stable Prescriptions: New promethazine 25 mg suppository 25 mg AL Q6H PRN (Reason: nausea and vomiting) Qty: 12 0RF ciprofloxacin HCl 500 mg tablet 500 mg PO BID 10 Days Qty: 20 0RF ondansetron 8 mg tablet,disintegrating 8 mg PO Q6H Qty: 14 0RF Rx Instructions: Take 1/2-1 tab every 6 hours as needed for nausea and vomiting No Action fluoxetine [Prozac] 40 mg capsule 40 mg PO DAILY Qty: 30 2RF topiramate 200 mg tablet 200 mg PO BID hydrocodone-acetaminophen 5-325 mg tablet 1 tab PO Q6H PRN (Reason: pain) Qty: 30 0RF Eliquis 5 mg tablet 5 mg PO BID gabapentin 300 mg capsule 300 mg PO QID 30 Days Qty: 120 3RF sennosides [Evac-U-Gen (sennosides)] 8.6 mg tablet 8.6 mg PO DAILY Qty: 20 0RF cefdinir 300 mg capsule 300 mg PO BID Qty: 14 0RF tramadol 50 mg tablet 50 mg PO Q4H PRN (Reason: Mild Pain (Scale Score 1-4)) Qty: 10 0RF ondansetron 4 mg tablet,disintegrating 4 mg PO TID PRN (Reason: Nausea And Vomiting) Qty: 14 0RF alprazolam 0.25 mg tablet 0.25 mg PO TID PRN (Reason: Anxiety) Discharge Orders: Discharge ED (Routine); Ordered 09/26/24 Ordered By: Giulia Torres Referrals: Joaquin Mak MD [Primary Care Provider, Family Practice] Discharge Diet: Advance as tolerated Discharge Activity: Increase activity as tolerated Patient Instructions: Urinary Tract Infection in Women (ED), Opioid Safety, Pain Management, Patient Portal & Ben Instructions Activity Restrictions/Additional Instructions: [facility]. You have been screened and evaluated and felt safe for discharge. Health conditions do change or evolve sometimes and as such it is important that you follow up with your Primary Doctor to be re checked, 3-5 days is a general good time frame for follow up. You are always welcome to return to the ED for re assessment if your symptoms are worsening or you have new concerns Print Language: Macedonian Coding Level of Care Code ED Manager [employer] for [employer]
[2024-09-26] MEDS: ondansetron 2 mg/ML SDV 2 mL 8 MG IVP (16:09)
[2024-09-26 16:16] LABS: Hematocrit 34.5 % (36-47); Hemoglobin 10.40 g/dL (11.27-16.99); Mean Corpuscular HGB Conc 30.1 g/dL (30-55); Mean Corpuscular Hemoglobin 26.0 pg (27-33); Mean Corpuscular Volume 86.3 fl (85-98); Nucleated Red Blood Cells % 0 %; Platelet Count 637 10^3/cmm (157-399); Red Blood Count 4.00 10^6/uL (3.85-5.65); White Blood Count 6.73 10^3/uL (3.29-11.43)
--- NOTE | 2024-09-26 16:24 | PC.NURSE ---
asked pt for a urine sample, pt states she can't go, pt states she is dehydrated and needs fluids first.
[2024-09-26] MEDS: morphine 4 mg/mL SDV 1 mL IVP (16:29)
[2024-09-26 16:41] LABS: Lactic Sepsis W/Reflex 1.9 mmol/L (0.5-2.2)
[2024-09-26 16:42] LABS: Alanine Aminotransferase 79 U/L (0-33); Albumin Level 4.2 g/dL (3.5-5.2); Alkaline Phosphatase 220 U/L (35-105); Anion Gap 18.4 (5-19); Aspartate Amino Transferase 81 U/L (0-32); Blood Urea Nitrogen 16 mg/dL (6-20); Calcium 9.1 mg/dL (8.5-10.5); Carbon Dioxide 21 mmol/L (22-29); Chloride 100 mmol/L (98-107); Creatinine Clr Calc Pharmacy 73.1604; Globulin 3.0 g/dL (1.3-4.6); Glucose 99 mg/dL (65-115); Lipase 25 U/L (13-60); Osmolality Calculated 283 mOsm/kg (285-295); Potassium 3.4 mmol/L (3.5-5.1); Sodium 136 mmol/L (136-145); Total Protein 7.2 g/dL (6.6-8.7)
[2024-09-26] MEDS: diphenhydrAMINE 50 mg/mL SDV 1mL IVP (17:34)
[2024-09-26 17:35] LABS: Glucose Urine UA Negative (Normal); Nitrate Urine Negative (Negative); Specific Gravity, Urine 1.026 (1.005-1.030)
[2024-09-26 17:37] LABS: Universal Test for UA Present (0)
[2024-09-26 17:41] LABS: PCP Screen Urine Negative (Negative)
[2024-09-26 18:01] LABS: UA Slide Review UA Slide Review Perf
--- NOTE | 2024-09-26 18:13 | PC.NURSE ---
Pt states to this nurse that the pain meds did nothing, pt also voices that she believes she has a PE and pt is requesting Cat scans Nurse informed Dr. Torres of pt's requests.
[2024-09-26] MEDS: HYDROmorphone 0.5 MG/0.5 ML INJ 1 MG IVP (18:21)
[2024-09-26] MEDS: cefepime 2,000 mg SDV 2000 MG IVP (18:22)
== END 2024-09-26 18:50 | disposition home or self-care (01) ==
PROVIDERS: Emergency Provider Emergency Medicine; PCP Family Medicine
DX: N30.00 Acute cystitis without hematuria (principal)
CPT/HCPCS: 36415; 80053; 80306; 81001; 83605; 83690; 85025; 87040; 96361; 96374; 96375; 99284; J0692; J0780; J1171; J1200; J2270; J2405; J7030

== ENCOUNTER 2024-09-30 16:33 | Emergency (ER) | payer MEDICAID, SELFPAY ==
[2024-09-30] VITALS (7 sets, daily range): BP systolic 116–135; BP diastolic 81–96; PULSE 93–111; RESP 16; TEMP 36.9; O2SAT 96–100
--- NOTE | 2024-09-30 16:37 | XRR_ITS ---
PROCEDURE INFORMATION: Exam: XR Chest Exam date and time: 09/30/2024 4:40 PM Age: 33 years old Clinical indication: Shortness of breath; Additional info: SOB TECHNIQUE: Imaging protocol: Radiologic exam of the chest. Views: 1 view. COMPARISON: CR XR chest 1V portable [id number] 02/21/2024 5:23 PM FINDINGS: Lungs: Unremarkable. No consolidation. Pleural spaces: Unremarkable. No pleural effusion. No pneumothorax. Heart/Mediastinum: Unremarkable. No cardiomegaly. Bones/joints: Unremarkable. XR/XR chest 1V portable [id number] IMPRESSION: No acute findings.
--- NOTE | 2024-09-30 16:57 | ECG_ITS ---
[employer] [facility] Test Date: 2024-09-30 Pat Name: Mary Nesbitt Department: Room: Gender: Female Folder Operator: : 1990 Requested By: Kumar Oliver Order Number: [id number] Chanel MD: Alvin Tovar M.D. Measurements Intervals [place] Rate: 103 P: 55 WA: 138 QRS: 43 QRSD: 82 T: 51 QT: 323 QTc: 425 Interpretive Statements SINUS TACHYCARDIA POSSIBLE ANTERIOR MYOCARDIAL INFARCTION , PROBABLY OLD [30 ms Q WAVE IN V3/V4, OR R < 0.2 mV IN V4] MINIMAL ST DEPRESSION ABNORMAL RHYTHM ECG Compared to ECG 09/07/2024 11:00:54 Myocardial infarct finding still present ST depression has decreased Electronically Signed On 09-30-2024 21:39:29 CDT by Alvin Tovar M.D. [email or web address]
[2024-09-30 19:42] LABS: Hematocrit 31.6 % (36-47); Hemoglobin 9.70 g/dL (11.27-16.99); Mean Corpuscular HGB Conc 30.7 g/dL (30-55); Mean Corpuscular Hemoglobin 27.2 pg (27-33); Mean Corpuscular Volume 88.5 fl (85-98); Nucleated Red Blood Cells % 0 %; Platelet Count 341 10^3/cmm (157-399); Red Blood Count 3.57 10^6/uL (3.85-5.65); White Blood Count 5.63 10^3/uL (3.29-11.43)
[2024-09-30 19:58] LABS: HCG, Serum Qual Negative (Negative)
[2024-09-30 19:59] LABS: Alanine Aminotransferase 71 U/L (0-33); Albumin Level 4.2 g/dL (3.5-5.2); Alkaline Phosphatase 196 U/L (35-105); Anion Gap 14.5 (5-19); Aspartate Amino Transferase 60 U/L (0-32); Blood Urea Nitrogen 12 mg/dL (6-20); Calcium 9.4 mg/dL (8.5-10.5); Carbon Dioxide 24 mmol/L (22-29); Chloride 103 mmol/L (98-107); Creatinine Clr Calc Pharmacy 82.3054; Globulin 2.7 g/dL (1.3-4.6); Glucose 96 mg/dL (65-115); Lipase 43 U/L (13-60); Osmolality Calculated 286 mOsm/kg (285-295); Potassium 3.5 mmol/L (3.5-5.1); Sodium 138 mmol/L (136-145); Total Protein 6.9 g/dL (6.6-8.7)
[2024-09-30 20:01] LABS: Alcohol Level < 10 mg/dL (0-10)
--- NOTE | 2024-09-30 20:16 | W.ED.ALLEREA ---
HPI - Allergic Reaction General: Chief complaint: Allergic Reaction Stated complaint: n/v, high hr, sob, abd pain Time Seen by Provider: 09/30/24 19:55 History of Present Illness: HPI narrative: Chief complaint is vomiting, chest pain, trouble breathing, allergic reaction. Patient states that she has been having abdominal pain for the last month. She states that she came in for vomiting and was found to have a UTI and put on cefdinir. She states that when she was in the hospital last time she was given the antibiotic and it made her chest hurt made her short of breath. She states that resolved but then she took the antibiotic pill at home again and when she took it made her feel the same way so she thought she might be having allergic reaction. She had vomiting before the antibiotic was started. She has no heart problems. She does have a history of PE but she states she is taking her Eliquis without missing any doses. She denies any black or bloody stools. No leg pain or swelling. She is currently not having any chest pain or shortness of breath. No swelling in her throat or wheezing. No black or bloody stools. No fever. No rash or itching. No headache. No history of heart problems. No drug use. No alcohol use. She states she has had a hysterectomy and no possible . She states she is never having burning or frequency of urination. No extremity pain or swelling. Abdominal pain is crampy intermittent abdominal pain that moves around different locations. She does have some low back ache as well. Related Data Home Medications ?Medication ?Instructions ?Recorded ?Confirmed alprazolam 0.25 mg tablet 0.25 mg PO TID PRN Anxiety 08/06/23 09/07/24 topiramate 200 mg tablet 200 mg PO BID 02/21/24 09/07/24 apixaban 5 mg tablet (Eliquis) 5 mg PO BID 09/07/24 09/07/24 Previous Rx's ?Medication ?Instructions ?Recorded hydrocodone 5 mg-acetaminophen 325 1 tab PO Q6H PRN pain #30 tabs 07/16/24 mg tablet fluoxetine 40 mg capsule (Prozac) 40 mg PO DAILY #30 caps 09/01/24 gabapentin 300 mg capsule 300 mg PO QID 30 days #120 caps 09/09/24 sennosides 8.6 mg tablet 8.6 mg PO DAILY #20 tabs 09/09/24 (Evac-U-Gen (sennosides)) cefdinir 300 mg capsule 300 mg PO BID #14 caps 09/14/24 ondansetron 4 mg disintegrating 4 mg PO TID PRN Nausea And 09/14/24 tablet Vomiting #14 tabs tramadol 50 mg tablet 50 mg PO Q4H PRN Mild Pain (Scale 09/14/24 Score 1-4) #10 tabs ciprofloxacin HCl 500 mg tablet 500 mg PO BID 10 days #20 tabs 09/26/24 ondansetron 8 mg disintegrating 8 mg PO Q6H #14 tabs 09/26/24 tablet promethazine 25 mg rectal 25 mg CO Q6H PRN nausea and 09/26/24 suppository vomiting #12 ea Allergies Allergy/AdvReac Type Severity Reaction Status Date / Time methylprednisolone Allergy Severe ALGY-Anaphy Verified 08/07/24 11:54 laxis Latex, Natural Rubber Allergy Intermediate rash, hives Verified 08/07/24 11:54 amoxicillin Allergy ALGY-Hives Verified 08/07/24 11:54 cefdinir Allergy Unknown Verified 09/30/24 17:01 methotrexate AdvReac Intermediate migraines, Verified 08/07/24 11:54 N/V PFSH ED PFSH: Medical History (Updated 09/30/24 @ 21:28 by Kumar Oliver MD) Bipolar disorder, unspecified Family history of colon cancer Bilateral pulmonary embolism Vapes nicotine containing substance Seizures Hx of migraines Ovarian mass, right Family history of psoriasis in father High risk medication use Inflammatory back pain Inflammatory arthritis Psychiatric care Other fdc (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 Mosher at [facility] History of tubal ligation 12/2015- per Dr. Mosher at [facility] H/O removal of cyst [address] Mosher Family History Mother Stroke Hyperlipidemia Family history of thyroid problem Hypertension Cancer of tongue Father Degenerative disc disease Diabetes Unknown Breast cancer maternal great aunt Grandmother Ovarian cancer maternal Uterine cancer maternal Other Cancer Chronic kidney disease (CKD) Rheumatoid arthritis Denies family history of Lupus Social History Smoking and tobacco/nicotine status: never used tobacco/nicotine Second hand smoke exposure: No Alcohol intake: never Substance/Drug Use: never Physical Exam Narrative: EXAM NARRATIVE: Alert oriented no acute distress. She is moving freely in the bed. Neck is supple. Conjunctiva is normal. Speech is clear. No rash in exposed areas in the skin. The skin is warm. Extremities warm well-perfused. No calf tenderness or pitting edema. Heart regular rhythm no rubs or murmurs. Lung sounds are clear. No wheezing. No prolonged expiratory phase. No increased work of breathing. No stridor. No swelling of the oropharynx or posterior pharynx. No posterior pharyngeal exudates. No nasal congestion or drainage. Speech is clear. No ataxia. Patient moves arms and legs freely. No extremity tenderness or deformity. No bruising or external signs of trauma. Patient shows ability to reason. Sensorium is clear. Abdomen soft. She has some mild generalized tenderness. No guarding or rebound. Negative Brooks's. No focal McBurney point tenderness. No CVA tenderness. No vertebral tenderness on her back. Course Vital Signs: Vital signs: Vital Signs Temperature 98.4 F 09/30/24 16:54 Pulse Rate 102 H 09/30/24 20:07 Respiratory Rate 16 09/30/24 16:54 Blood Pressure 127/91 09/30/24 20:07 Pulse Oximetry 96 09/30/24 20:07 Oxygen Delivery Me thod Room Air 09/30/24 20:07 MDM - Allergic Reaction Medical Decision Making Patient presents complaining of chronic problems with nausea and vomiting. She also has been having problems with abdominal pain over the last month or 6 weeks she states. She denies any new or change in the vomiting and abdominal pain. She came in because she started having some chest pain trouble breathing after taking her antibiotic and was worried about allergic reaction. She did not take any medication to treat an allergic reaction. Those symptoms have resolved. Denies history of heart disease. She states she had the same thing a couple days ago when she took antibiotic. I advised her not to take the antibiotic any further. She still has her abdominal pain nausea and vomiting which she states has been going on for about 6 weeks she estimates. She does not feel this is new or changed. Denies black or bloody stools or black or bloody emesis. Denies fever. Denies cough. Lung sounds are clear and she states she is taking her Eliquis making PE unlikely. She has no pleurisy. No cough. Patient denies any urinary symptoms. EKG, CBC CMP troponin urinalysis and UDS ordered. Urinalysis shows some white cells and 1+ leukocyte Estrace but no nitrites and no bacteria. Without urinary symptoms UTI would be low probability. She has been on antibiotics however so could have partially treated UTI. Will send urine culture. White count was normal. Hemoglobin shows anemia but not significant change compared to prior. Patient potassium within normal limits. Creatinine within normal limits. Troponin was negative. EKG shows sinus tachycardia nonspecific ST segment changes and some ST depression. Patient had symptoms for hours within the last few days and then again today and a single negative troponin would make cardiac ischemia very unlikely with low pretest probability. Patient given 1 L of saline IV fluid bolus in case of dehydration with her vomiting. She states she has had intermittent vomiting for the last 6 weeks. I examined the patient's abdomen and her exam was very inconsistent would have tenderness in different areas each time I would palpate. I reviewed and she has had 3 CTs very recently and approximate last month. These did not show evidence of acute abnormality. With a normal white count and with ongoing symptoms and she agrees that she had the same symptoms when she had her prior CTs except for the new symptoms that she was worried was allergic reaction. I advised her this could be allergic reaction however this seems to have resolved. She is breathing comfortably in no distress. She has no rash or itching. Advised her to stop the cefdinir for now and to follow-up with an neurosurgical nurse for further testing to see if she is allergic to cephalosporins as these are an important class of antibiotics. Advised signs symptoms of worsening to watch and return for. She agrees with plan and feels comfortable with outpatient management. I discussed doing repeat CT however I advised her balance risk and benefit and discussed with her prior CTs recently and if there is nothing new or different and she did not feel there was and wanted to hold off on repeat CT after informed discussion. Will discharge patient home with close outpatient follow-up and return instructions and advised to return for any worsening or progressive symptoms. Lab Data 09/30/24 19:32 09/30/24 19:32 Radiology Impressions Chest X-Ray 09/30/24 16:37 IMPRESSION: No acute findings. Laboratory Results WBC 5.63 10^3/uL (3.29-11.43) 09/30/24 19:32 RBC 3.57 10^6/uL (3.85-5.65) L 09/30/24 19:32 Hgb 9.70 g/dL (11.27-16.99) L 09/30/24 19:32 Hct 31.6 % (36-47) L 09/30/24 19:32 MCV 88.5 fl (85-98) 09/30/24 19:32 MCH 27.2 pg (27-33) 09/30/24 19:32 MCHC 30.7 g/dL (30-55) 09/30/24 19:32 RDW 16.3 % (12.1-15.1) H 09/30/24 19:32 Plt Count 341 10^3/cmm (157-399) 09/30/24 19:32 MPV 9.7 fL (7.4-10.4) 09/30/24 19:32 Neut % (Auto) 42.7 % 09/30/24 19:32 Lymph % (Auto) 44.0 % 09/30/24 19:32 [place] % (Auto) 9.9 % 09/30/24 19:32 Eos % (Auto) 2.1 % 09/30/24 19:32 Baso % (Auto) 1.1 % 09/30/24 19:32 Neut # (Auto) 2.40 10^3/uL (1.8-7.7) 09/30/24 19:32 Lymph # (Auto) 2.5 10^3/uL (0.8-4.8) 09/30/24 19:32 [place] # (Auto) 0.6 10^3/uL (0.2-0.9) 09/30/24 19:32 Eos # (Auto) 0.1 10^3/uL (0.0-0.8) 09/30/24 19:32 Baso # (Auto) 0.1 10^3/uL (0.0-0.1) 09/30/24 19:32 Nucleated RBC % (auto) 0 % 09/30/24 19:32 Nucleated RBCs # 0.0 /100WBC 09/30/24 19:32 Sodium 138 mmol/L (136-145) 09/30/24 19:32 Potassium 3.5 mmol/L (3.5-5.1) 09/30/24 19:32 Chloride 103 mmol/L (98-107) 09/30/24 19:32 Carbon Dioxide 24 mmol/L (22-29) 09/30/24 19:32 Anion Gap 14.5 (5-19) 09/30/24 19:32 BUN 12 mg/dL (6-20) 09/30/24 19:32 Creatinine 0.8 mg/dL (0.5-0.9) 09/30/24 19:32 GFR Calculation 82.1 mL/min (90-130) L 09/30/24 19:32 Glucose 96 mg/dL (65-115) 09/30/24 19:32 Calculated Osmolality 286 mOsm/kg (285-295) 09/30/24 19:32 Calcium 9.4 mg/dL (8.5-10.5) 09/30/24 19:32 Total Bilirubin 0.5 mg/dL (0.15-1.2) 09/30/24 19:32 AST 60 U/L (0-32) H 09/30/24 19:32 ALT 71 U/L (0-33) H 09/30/24 19:32 Alkaline Phosphatase 196 U/L (35-105) H 09/30/24 19:32 Troponin T Baseline < 6 ng/L (0-10) 09/30/24 19:32 Total Protein 6.9 g/dL (6.6-8.7) 09/30/24 19:32 Albumin 4.2 g/dL (3.5-5.2) 09/30/24 19:32 Globulin 2.7 g/dL (1.3-4.6) 09/30/24 19:32 Lipase 43 U/L (13-60) 09/30/24 19:32 HCG, Qual Negative (Negative) 09/30/24 19:32 Urine Color Yellow (Yellow) 09/30/24 19:52 Urine Appearance Clear (CLEAR) 09/30/24 19:52 Urine pH 6.5 (5-7) 09/30/24 19:52 Ur Specific [place] 1.015 (1.005-1.030) 09/30/24 19:52 Urine Protein Negative (Negative) 09/30/24 19:52 Urine Glucose (UA) Negative (Normal) 09/30/24 19:52 Urine Ketones Negative (Negative) 09/30/24 19:52 Urine Blood Negative (Negative) 09/30/24 19:52 Urine Nitrate Negative (Negative) 09/30/24 19:52 Urine Bilirubin Negative (Negative) 09/30/24 19:52 Urine Urobilinogen 1.0 mg/dL (Negative) 09/30/24 19:52 Ur Leukocyte Esterase 1+ (Negative) A 09/30/24 19:52 Urine RBC 0-2 /hpf (0-2) 09/30/24 19:52 Urine WBC 11-20 /hpf (0-5) H 09/30/24 19:52 Ur Squamous Epith Cells 6-10 /hpf (0-5) 09/30/24 19:52 Amorphous Sediment Not Reportable 09/30/24 19:52 Urine Bacteria None seen /hpf (NONE) 09/30/24 19:52 Hyaline Casts 0-4 /lpf H 09/30/24 19:52 Urine Opiates Screen Negative ng/mL (Negative) 09/30/24 19:52 Ur Barbiturates Screen Negative ng/mL (Negative) 09/30/24 19:52 Ur Phencyclidine Scrn Negative ng/mL (Negative) 09/30/24 19:52 Ur Amphetamines Screen Negative ng/mL (Negative) 09/30/24 19:52 U Benzodiazepines Scrn Negative ng/mL (Negative) 09/30/24 19:52 Urine Cocaine Screen Negative ng/mL (Negative) 09/30/24 19:52 U Marijuana (THC) Screen Negative ng/mL (Negative) 09/30/24 19:52 Ethyl Alcohol < 10 mg/dL (0-10) 09/30/24 19:32 No radiology studies performed this visit Discharge Plan Discharge Patient Disposition: Home Clinical Impression: Abdominal pain, Vomiting Condition: Stable Prescriptions: No Action fluoxetine [Prozac] 40 mg capsule 40 mg PO DAILY Qty: 30 2RF topiramate 200 mg tablet 200 mg PO BID hydrocodone-acetaminophen 5-325 mg tablet 1 tab PO Q6H PRN (Reason: pain) Qty: 30 0RF Eliquis 5 mg tablet 5 mg PO BID gabapentin 300 mg capsule 300 mg PO QID 30 Days Qty: 120 3RF sennosides [Evac-U-Gen (sennosides)] 8.6 mg tablet 8.6 mg PO DAILY Qty: 20 0RF cefdinir 300 mg capsule 300 mg PO BID Qty: 14 0RF tramadol 50 mg tablet 50 mg PO Q4H PRN (Reason: Mild Pain (Scale Score 1-4)) Qty: 10 0RF ondansetron 4 mg tablet,disintegrating 4 mg PO TID PRN (Reason: Nausea And Vomiting) Qty: 14 0RF promethazine 25 mg suppository 25 mg CO Q6H PRN (Reason: nausea and vomiting) Qty: 12 0RF ciprofloxacin HCl 500 mg tablet 500 mg PO BID 10 Days Qty: 20 0RF ondansetron 8 mg tablet,disintegrating 8 mg PO Q6H Qty: 14 0RF Rx Instructions: Take 1/2-1 tab every 6 hours as needed for nausea and vomiting alprazolam 0.25 mg tablet 0.25 mg PO TID PRN (Reason: Anxiety) Discharge Orders: Discharge ED (Routine); Ordered 09/30/24 Ordered By: Kumar Oliver Referrals: Joaquin Mak MD [Primary Care Provider, Family Practice] Patient Instructions: Abdominal Pain (ED), Opioid Safety, Pain Management, Patient Portal & Ben Instructions Activity Restrictions/Additional Instructions: Call your doctor for recheck in the next 2 days. Please come back if new or worsening symptoms or concerns, rash, trouble breathing, chest pain, persistent vomiting, worsening or concerning abdominal pain, black or bloody stools or emesis, fever, any worse or concerns. Please follow-up on your test results with your doctor. Stop the cefdinir antibiotic. Follow-up on urine culture and test results with your doctor. Print Language: Nicaraguan Coding Level of Care Code ED Sap Specialist for Mark Berg
[2024-09-30 20:42] LABS: Glucose Urine UA Negative (Normal); Nitrate Urine Negative (Negative); Specific Gravity, Urine 1.015 (1.005-1.030)
[2024-09-30 20:47] LABS: Add Urine Microscopic? YES
[2024-09-30 20:49] LABS: PCP Screen Urine Negative (Negative)
[2024-09-30 21:02] LABS: Troponin(5th) Baseline < 6 ng/L (0-10)
--- OUTSIDE RECORDS SUMMARY | 2024-10-01 18:07 | XMS_ITS | Clinical Summary ---
Author Organization [facility] Address [address] [place] [address] Care Team Providers Care Lending Activities Supervisor Name Role Phone Joaquin Mak MD Primary Care Provider [phone] Allergies Active Allergy Reactions Criticality Noted Date [...] on file Legal Sex Female 11:[address] Gender Identity Not on file Sexual Orientation Not on file Last Filed Vital Signs Vital Sign Reading Time Taken Comments Blood Pressure 92/54 05/17/2023 10:35 AM CDT Pulse 75 12/29/2019 3:[address] JUDGE Temperature 37.2 C (98.9 F) 12/29/2019 2:[address] JUDGE Respiratory Rate 18 12/29/2019 3:[address] JUDGE Oxygen Saturation - - Inhaled Oxygen Concentration [...] (2 - Td or Tdap) 09/11/2032 Insurance [facility] [employer] MEDICAID Care Teams Lending Activities Supervisor Relationship Specialty Start Date End Date Joaquin Mak MD [address] [phone] PCP - General Family Practice 12/29/19
--- OUTSIDE RECORDS SUMMARY | 2024-10-01 18:07 | XMS_ITS | Clinical Summary ---
Author Organization [facility] Address [address] [place] [address] Care Team Providers Care Tunnel Elastic Operator Zigzag Name Role Phone Joaquin Mak MD Primary Care Provider [phone] Allergies Active Allergy Reactions Criticality Noted Date [...] Comments Blood Pressure 119/75 12/29/2019 3:14 PM CORE ANALYSIS OPERATOR Pulse 75 12/29/2019 3:14 PM CORE ANALYSIS OPERATOR Temperature 37.2 C (98.9 F) 12/29/2019 2:03 PM CORE ANALYSIS OPERATOR Respiratory Rate 18 12/29/2019 3:14 PM CORE ANALYSIS OPERATOR Oxygen Saturation 99% 12/29/2019 3:14 PM CORE ANALYSIS OPERATOR Inhaled Oxygen Concentration - - Weight 47.6 kg (105 lb) 12/29/2019 2:03 PM CORE ANALYSIS OPERATOR Height 149.9 cm (4' 11 ) 12/29/2019 2:03 PM CORE ANALYSIS OPERATOR Body Mass Index 21.21 12/29/2019 2:03 PM CORE ANALYSIS OPERATOR Plan of Treatment Health Maintenance Due Date Last Done Comments HPV VACCINES (1 - 3-dose series) 2004 DTAP/TDAP/TD VACCINES (1 - Tdap) 2008 HEPATITIS B VACCINES (1 of 3 - 19+ 3-dose series) 09/19 HPV/Cotest (21-29) 2010 CERVICAL CANCER SCREENING 10/03/2019 HPV/Cotest (30-65) 10/03/2019 PAP SMEAR 10/03/2019 INFLUENZA VACCINE (#1) 2024 Insurance Care Teams Tunnel Elastic Operator Zigzag Relationship Specialty Start Date End Date Joaquin Mak MD [address] [address] PCP - General Family Practice 12/29/19
== END 2024-09-30 22:05 | disposition home or self-care (01) ==
PROVIDERS: Emergency Medicine; Physician Assistant; Emergency Provider Emergency Medicine; PCP Family Medicine
DX: R10.9 Unspecified abdominal pain (principal); R11.10 Vomiting, unspecified; Z79.01 Long term (current) use of anticoagulants
CPT/HCPCS: 36415; 71045; 80053; 80306; 80307; 81001; 83690; 84484; 84703; 85025; 87086; 93005; 96360; 99285; J7030

== ENCOUNTER 2024-10-04 12:56 | Emergency (ER) | payer MEDICAID, SELFPAY ==
--- NOTE | 2024-10-04 13:02 | ECG_ITS ---
[employer] Test Date: 2024-10-04 Pat Name: Mary Nesbitt Department: Room: Gender: Female Shuttle Fitting Supervisor: : 1990 Requested By: Kris Hess Order Number: [id number] Chanel MD: Alvin Tovar M.D. Measurements Intervals [place] Rate: 88 P: 63 MN: 137 QRS: 72 QRSD: 66 T: 68 QT: 348 QTc: 422 Interpretive Statements SINUS RHYTHM SEPTAL MYOCARDIAL INFARCTION , OF INDETERMINATE AGE [40+ ms Q WAVE IN V1/V2] Compared to ECG 09/30/2024 16:57:51 Sinus tachycardia no longer present ST deviation no longer present Electronically Signed On 10-04-2024 21:49:27 CDT by Alvin Tovar M.D. [email or web address]
--- OUTSIDE RECORDS SUMMARY | 2024-10-04 13:02 | XMS_ITS | Clinical Summary ---
Author Organization [facility] Address [address] [place] [address] Care Team Providers Care Film Archivist Name Role Phone Joaquin Mak MD Primary Care Provider [phone] Allergies Active Allergy Reactions Criticality Noted Date [...] on file Legal Sex Female 11:32 PM BALANCE ASSEMBLER Gender Identity Not on file Sexual Orientation Not on file Last Filed Vital Signs Vital Sign Reading Time Taken Comments Blood Pressure 92/54 05/17/2023 10:35 AM CDT Pulse 75 12/29/2019 3:14 PM BALANCE ASSEMBLER Temperature 37.2 C (98.9 F) 12/29/2019 2:03 PM BALANCE ASSEMBLER Respiratory Rate 18 12/29/2019 3:14 PM BALANCE ASSEMBLER Oxygen Saturation - - Inhaled Oxygen Concentration [...] (2 - Td or Tdap) 09/11/2032 Insurance [facility] [employer] [facility] MEDICAID Care Teams Film Archivist Relationship Specialty Start Date End Date Joaquin Mak MD [address] [phone] PCP - General Family Practice 12/29/19
--- OUTSIDE RECORDS SUMMARY | 2024-10-04 13:02 | XMS_ITS | Clinical Summary ---
Author Organization [facility] Address [address] [place] [address] Care Team Providers Care Motorcycle Police Officer Name Role Phone Joaquin Mak MD Primary Care Provider [phone] Allergies Active Allergy Reactions Criticality Noted Date [...] Comments Blood Pressure 119/75 12/29/2019 3:14 PM STONE POLISHER MACHINE Pulse 75 12/29/2019 3:14 PM STONE POLISHER MACHINE Temperature 37.2 C (98.9 F) 12/29/2019 2:03 PM STONE POLISHER MACHINE Respiratory Rate 18 12/29/2019 3:14 PM STONE POLISHER MACHINE Oxygen Saturation 99% 12/29/2019 3:14 PM STONE POLISHER MACHINE Inhaled Oxygen Concentration - - Weight 47.6 kg (105 lb) 12/29/2019 2:03 PM STONE POLISHER MACHINE Height 149.9 cm (4' 11 ) 12/29/2019 2:03 PM STONE POLISHER MACHINE Body Mass Index 21.21 12/29/2019 2:03 PM STONE POLISHER MACHINE Plan of Treatment Health Maintenance Due Date Last Done Comments HPV VACCINES (1 - 3-dose series) 2004 DTAP/TDAP/TD VACCINES (1 - Tdap) 2008 HEPATITIS B VACCINES (1 of 3 - 19+ 3-dose series) 09/19 HPV/Cotest (21-29) 2010 CERVICAL CANCER SCREENING 10/03/2019 HPV/Cotest (30-65) 10/03/2019 PAP SMEAR 10/03/2019 INFLUENZA VACCINE (#1) 2024 Insurance Care Teams Motorcycle Police Officer Relationship Specialty Start Date End Date Joaquin Mak MD [address] [id number] PCP - General Family Practice 12/29/19
[2024-10-04 13:03] VITALS: BP 125/83; PULSE 96; RESP 20; TEMP 36.9; O2SAT 96; BMI 23.0
[2024-10-04 13:53] VITALS: BP 136/83; PULSE 97; RESP 16; O2SAT 97
--- NOTE | 2024-10-04 14:01 | XRR_ITS ---
PROCEDURE INFORMATION: Exam: XR Chest Exam date and time: 10/04/2024 2:23 PM Age: 34 years old Clinical indication: Other: Chest pain TECHNIQUE: Imaging protocol: Radiologic exam of the chest. Views: 1 view. COMPARISON: CR (CHEST, ) 09/30/2024 4:40 PM FINDINGS: Lungs: Unremarkable. No consolidation. Pleural spaces: Unremarkable. No pleural effusion. No pneumothorax. Heart/Mediastinum: Unremarkable. No cardiomegaly. Bones/joints: Unremarkable. XR/XR chest 1V portable [id number] IMPRESSION: No acute findings.
--- NOTE | 2024-10-04 14:09 | W.ED.CHESTPA ---
HPI - Chest Pain General: Chief Complaint: Chest Pain Stated Complaint: chest pain Time Seen by Provider: 10/04/24 13:44 History of Present Illness: Chief complaint is racing heartbeat. The patient states that her heart beats been going fast since her appointment yesterday with her doctor. She states her doctor told her that her heartbeat has been going fast for the last several visits she has had and that it could cause damage to her heart and prescribed her metoprolol but she has not gotten the prescription yet. She states her heart was still racing today and she got concerned so she came here. Related Data Home Medications ?Medication ?Instructions ?Recorded ?Confirmed alprazolam 0.25 mg tablet 0.25 mg PO TID PRN Anxiety 08/06/23 10/02/24 topiramate 200 mg tablet 200 mg PO BID 02/21/24 10/02/24 apixaban 5 mg tablet (Eliquis) 5 mg PO BID 09/07/24 10/02/24 Previous Rx's ?Medication ?Instructions ?Recorded hydrocodone 5 mg-acetaminophen 325 1 tab PO Q6H PRN pain #30 tabs 07/16/24 mg tablet fluoxetine 40 mg capsule (Prozac) 40 mg PO DAILY #30 caps 09/01/24 gabapentin 300 mg capsule 300 mg PO QID 30 days #120 caps 09/09/24 sennosides 8.6 mg tablet 8.6 mg PO DAILY #20 tabs 09/09/24 (Evac-U-Gen (sennosides)) cefdinir 300 mg capsule 300 mg PO BID #14 caps 09/14/24 ondansetron 4 mg disintegrating 4 mg PO TID PRN Nausea And 09/14/24 tablet Vomiting #14 tabs tramadol 50 mg tablet 50 mg PO Q4H PRN Mild Pain (Scale 09/14/24 Score 1-4) #10 tabs ciprofloxacin HCl 500 mg tablet 500 mg PO BID 10 days #20 tabs 09/26/24 ondansetron 8 mg disintegrating 8 mg PO Q6H #14 tabs 09/26/24 tablet promethazine 25 mg rectal 25 mg CA Q6H PRN nausea and 09/26/24 suppository vomiting #12 ea omeprazole 40 mg capsule,delayed 40 mg PO DAILY 4 weeks #40 caps 10/04/24 release Allergies Allergy/AdvReac Type Severity Reaction Status Date / Time methylprednisolone Allergy Severe ALGY-Anaphy Verified 10/02/24 10:52 laxis Latex, Natural Rubber Allergy Intermediate rash, hives Verified 10/02/24 10:52 amoxicillin Allergy ALGY-Hives Verified 10/02/24 10:52 cefdinir Allergy Unknown Verified 10/02/24 10:52 methotrexate AdvReac Intermediate migraines, Verified 10/02/24 10:52 N/V PFSH ED PFSH: Medical History (Updated 10/04/24 @ 16:04 by Kumar Oliver MD) Bipolar disorder, unspecified Family history of colon cancer Bilateral pulmonary embolism Vapes nicotine containing substance Seizures Hx of migraines Ovarian mass, right Family history of psoriasis in father High risk medication use Inflammatory back pain Inflammatory arthritis Psychiatric care Other intermediate designer (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 Mosher at [facility] History of tubal ligation 12/2015- per Dr. Mosher at [facility] H/O removal of cyst [address] Mosher Family History Mother Stroke Hyperlipidemia Family history of thyroid problem Hypertension Cancer of tongue Father Degenerative disc disease Diabetes Unknown Breast cancer maternal great aunt Grandmother Ovarian cancer maternal Uterine cancer maternal Other Cancer Chronic kidney disease (CKD) Rheumatoid arthritis Denies family history of Lupus Social History Smoking and tobacco/nicotine status: never used tobacco/nicotine Second hand smoke exposure: No Alcohol intake: never Substance/Drug Use: never Physical Exam Narrative: EXAM NARRATIVE: Patient is alert and oriented x 4. She is anxious. Heart is regular rhythm no rubs or murmurs send lung sounds are clear. No increased work of breathing. No accessory muscle use. Neck is supple. Moist mucous membranes, normal conjunctiva, full range ocular motion, pupils equal react light, She moves her back freely. No calf tenderness or pitting edema. Extremities appear warm well-perfused. Skin is warm and dry no rash on exposed areas. Abdomen soft nontender no guarding or rebound. No stridor. No splinting with respirations. Patient moves freely in the bed. Patient denies suicidal ideation. She shows ability to reason. Speech is clear. She moves her arms and legs freely. Course Vital Signs: Vital signs: Vital Signs Temperature 98.5 F 10/04/24 13:03 Pulse Rate 79 10/04/24 16:59 Respiratory Rate 16 10/04/24 16:59 Blood Pressure 127/98 10/04/24 16:59 Pulse Oximetry 99 10/04/24 16:59 Oxygen Delivery Me thod Room Air 10/04/24 14:50 MDM - Chest Pain Medical Decision Making Patient presents complaining of racing heartbeat. She states she has pain in her epigastric substernal low chest area. Does not radiate to the back arm or jaw. She states it is more just palpitations and feels like her heart is racing. She states has been going on all day yesterday and today. She states she was out in the heat yesterday so thought that might be the cause but was still going on today and she was concerned after her doctor's visit yesterday so she decided to come here. She states she is not normally in therapy of control. Denies any black stools. She states she has chronic diarrhea for more than a year with 15-30 bowel movements every day and sometimes will have some red blood mixed in with it. No large amounts of blood. She states her doctors are retesting her for C. difficile which she has had in the past. No headache. No history of heart problems. No drug use. She denies any suicidal thoughts. Denies alcohol use. She does have a history of PE. Patient not tells me that she has not taken her Eliquis. She denies fever. No cough. No shortness of breath that is new. Patient appears very anxious. Patient goes different history than she did when I spoke to her last time on her ER visit. She tells me today she has not been taking her Eliquis. She also complains that she is having leg swelling though I do not appreciate edema on exam. She has no pitting edema. She has strong intact peripheral pulses. Patient's symptoms got worse after her doctor told her that she could have heart problems from a fast heartbeat so she may have a component of anxiety. Metabolic, endocrine, PE, pericardial effusion, cardiac dysrhythmia, UT, withdrawal, drug abuse, medication adverse effect, extensive differential. She denies any substance abuse or any change in medications. She also has chronic diarrhea and may have dehydration or electrolyte abnormality. Will check CBC CMP EKG troponin and chest x-ray D-dimer lipase CK and I ordered 1 L normal saline IV fluid bolus. Patient EKG to my interpretation shows sinus rhythm with a rate of 88 bpm and septal Q waves. Patient heart rate varies in the room I am talking to her from low 100s up to as high as 105 but she is primarily in the 90s when I am in the room talking to her. Patient's D-dimer is negative with low pretest probability. Troponin is negative. Patient creatinine is 0.6. Patient hemoglobin however has trended down again. She is down 8.5. I see patient has trended down in the past as well. Patient states she is not currently on a PPI. She states she is not on her Eliquis. She states that she has had a hysterectomy and so no vaginal bleeding. She denies any vomiting currently or any vomiting of any blood. She states that she has chronic diarrhea for more than a year and she states that she loses blood in her stools off-and-on but she states that is been going on for a long time longer than a year. She states she had a colonoscopy last year because of it. She states that she will go for period of time where she loses blood and then she will go for a while where she has no bleeding. She states that is not a large amount of blood but she will see normal cabrera appearing stools and will have some mixed blood in the stool intermittently. She states is not much blood and nothing compared to what she would have with her menstrual cycle in the past. I discussed with the patient treatment plan. She wants to go home. She states she is feeling improved. I advised that her hemoglobin has been continuing to drop and the potential for blood loss. I recommend we start her on a PPI and iron as well. Advised to follow-up with her doctor this week to recheck her hemoglobin and to return immediately if worsening palpitations or lightheadedness or dizziness or bleeding or any worse or concerns. Patient alert talkative states she feels much better and requesting continued outpatient management. Lab Data 10/04/24 14:17 10/04/24 14:17 Radiology Impressions Chest X-Ray 10/04/24 14:01 IMPRESSION: No acute findings. Laboratory Results WBC 6.92 10^3/uL (3.29-11.43) 10/04/24 14:17 RBC 3.30 10^6/uL (3.85-5.65) L 10/04/24 14:17 Hgb 8.50 g/dL (11.27-16.99) L 10/04/24 14:17 Hct 29.3 % (36-47) L 10/04/24 14:17 MCV 88.8 fl (85-98) 10/04/24 14:17 MCH 25.8 pg (27-33) L 10/04/24 14:17 MCHC 29.0 g/dL (30-55) L 10/04/24 14:17 RDW 15.6 % (12.1-15.1) H 10/04/24 14:17 Plt Count 315 10^3/cmm (157-399) 10/04/24 14:17 MPV 10.1 fL (7.4-10.4) 10/04/24 14:17 Neut % (Auto) 43.3 % 10/04/24 14:17 Lymph % (Auto) 44.2 % 10/04/24 14:17 [place] % (Auto) 5.8 % 10/04/24 14:17 Eos % (Auto) 5.1 % 10/04/24 14:17 Baso % (Auto) 1.3 % 10/04/24 14:17 Neut # (Auto) 3.00 10^3/uL (1.8-7.7) 10/04/24 14:17 Lymph # (Auto) 3.1 10^3/uL (0.8-4.8) 10/04/24 14:17 [place] # (Auto) 0.4 10^3/uL (0.2-0.9) 10/04/24 14:17 Eos # (Auto) 0.4 10^3/uL (0.0-0.8) 10/04/24 14:17 Baso # (Auto) 0.1 10^3/uL (0.0-0.1) 10/04/24 14:17 Nucleated RBC % (auto) 0 % 10/04/24 14:17 Nucleated RBCs # 0.0 /100WBC 10/04/24 14:17 D-Dimer <= 0.27 ug/mLFEU (0-0.59) 10/04/24 14:17 Sodium 139 mmol/L (136-145) 10/04/24 14:17 Potassium 4.0 mmol/L (3.5-5.1) 10/04/24 14:17 Chloride 106 mmol/L (98-107) 10/04/24 14:17 Carbon Dioxide 23 mmol/L (22-29) 10/04/24 14:17 Anion Gap 14.0 (5-19) 10/04/24 14:17 BUN 11 mg/dL (6-20) 10/04/24 14:17 Creatinine 0.6 mg/dL (0.5-0.9) 10/04/24 14:17 GFR Calculation 113.8 mL/min (90-130) 10/04/24 14:17 Glucose 97 mg/dL (65-115) 10/04/24 14:17 Calculated Osmolality 287 mOsm/kg (285-295) 10/04/24 14:17 Calcium 8.3 mg/dL (8.5-10.5) L 10/04/24 14:17 Total Bilirubin 0.2 mg/dL (0.15-1.2) 10/04/24 14:17 AST 27 U/L (0-32) 10/04/24 14:17 ALT 38 U/L (0-33) H 10/04/24 14:17 Alkaline Phosphatase 142 U/L (35-105) H 10/04/24 14:17 Creatine Kinase 99 U/L (26-192) 10/04/24 14:17 Troponin T Baseline < 6 ng/L (0-10) 10/04/24 14:17 NT-Pro-B Natriuret Pep 156 pg/mL (0-125) H 10/04/24 14:17 Total Protein 5.8 g/dL (6.6-8.7) L 10/04/24 14:17 Albumin 3.8 g/dL (3.5-5.2) 10/04/24 14:17 Globulin 2.0 g/dL (1.3-4.6) 10/04/24 14:17 Lipase 24 U/L (13-60) 10/04/24 14:17 TSH 0.83 uIU/mL (0.27-4.20) 10/04/24 14:17 HCG, Qual Negative (Negative) 10/04/24 13:23 Urine Opiates Screen Positive ng/mL (Negative) H 10/04/24 13:23 Ur Barbiturates Screen Negative ng/mL (Negative) 10/04/24 13:23 Ur Phencyclidine Scrn Negative ng/mL (Negative) 10/04/24 13:23 Ur Amphetamines Screen Negative ng/mL (Negative) 10/04/24 13:23 U Benzodiazepines Scrn Negative ng/mL (Negative) 10/04/24 13:23 Urine Cocaine Screen Negative ng/mL (Negative) 10/04/24 13:23 U Marijuana (THC) Screen Positive ng/mL (Negative) H 10/04/24 13:23 All radiology interpretation(s) finalized by discharge Discharge Plan Discharge Patient Disposition: Home Clinical Impression: Palpitations, Anemia Condition: Stable Prescriptions: New omeprazole 40 mg capsule,delayed release(DR/EC) 40 mg PO DAILY 28 Days Qty: 40 0RF No Action fluoxetine [Prozac] 40 mg capsule 40 mg PO DAILY Qty: 30 2RF topiramate 200 mg tablet 200 mg PO BID hydrocodone-acetaminophen 5-325 mg tablet 1 tab PO Q6H PRN (Reason: pain) Qty: 30 0RF Eliquis 5 mg tablet 5 mg PO BID gabapentin 300 mg capsule 300 mg PO QID 30 Days Qty: 120 3RF sennosides [Evac-U-Gen (sennosides)] 8.6 mg tablet 8.6 mg PO DAILY Qty: 20 0RF cefdinir 300 mg capsule 300 mg PO BID Qty: 14 0RF tramadol 50 mg tablet 50 mg PO Q4H PRN (Reason: Mild Pain (Scale Score 1-4)) Qty: 10 0RF ondansetron 4 mg tablet,disintegrating 4 mg PO TID PRN (Reason: Nausea And Vomiting) Qty: 14 0RF promethazine 25 mg suppository 25 mg CA Q6H PRN (Reason: nausea and vomiting) Qty: 12 0RF ciprofloxacin HCl 500 mg tablet 500 mg PO BID 10 Days Qty: 20 0RF ondansetron 8 mg tablet,disintegrating 8 mg PO Q6H Qty: 14 0RF Rx Instructions: Take 1/2-1 tab every 6 hours as needed for nausea and vomiting alprazolam 0.25 mg tablet 0.25 mg PO TID PRN (Reason: Anxiety) Discharge Orders: Discharge ED (Routine); Ordered 10/04/24 Ordered By: Kumar Oliver Referrals: Joaquin Mak MD [Primary Care Provider, Family Practice] Patient Instructions: Opioid Safety, Pain Management, Patient Portal & Ben Instructions Activity Restrictions/Additional Instructions: Come back if excessive loss of blood in your stools, lightheadedness or dizziness, worsening heart rate, chest pain or shortness of breath, concerning abdominal pain, vomiting blood, black stools, any worse or concerns. Please follow-up this coming week to recheck your blood count with your doctor as discussed. Please start a vitamin with iron to help you make more blood. Follow-up on your test results with your doctor and please come back if any worsening symptoms or concerns as discussed. Print Language: French Coding Level of Care Code ED Photoengraving Sketch Maker for Mark Berg
[2024-10-04 14:22] LABS: HCG Qualitative Urine. Negative (Negative)
[2024-10-04 14:34] LABS: Hematocrit 29.3 % (36-47); Hemoglobin 8.50 g/dL (11.27-16.99); Mean Corpuscular HGB Conc 29.0 g/dL (30-55); Mean Corpuscular Hemoglobin 25.8 pg (27-33); Mean Corpuscular Volume 88.8 fl (85-98); Nucleated Red Blood Cells % 0 %; Platelet Count 315 10^3/cmm (157-399); Red Blood Count 3.30 10^6/uL (3.85-5.65); White Blood Count 6.92 10^3/uL (3.29-11.43)
[2024-10-04 14:35] LABS: PCP Screen Urine Negative (Negative)
[2024-10-04 14:50] VITALS: BP 149/96; PULSE 99; RESP 18; O2SAT 100
[2024-10-04 14:52] LABS: Troponin(5th) Baseline < 6 ng/L (0-10)
[2024-10-04 15:05] LABS: Alanine Aminotransferase 38 U/L (0-33); Albumin Level 3.8 g/dL (3.5-5.2); Alkaline Phosphatase 142 U/L (35-105); Anion Gap 14.0 (5-19); Aspartate Amino Transferase 27 U/L (0-32); Blood Urea Nitrogen 11 mg/dL (6-20); Calcium 8.3 mg/dL (8.5-10.5); Carbon Dioxide 23 mmol/L (22-29); Chloride 106 mmol/L (98-107); Creatinine Clr Calc Pharmacy 106.8314; Globulin 2.0 g/dL (1.3-4.6); Glucose 97 mg/dL (65-115); Lipase 24 U/L (13-60); NT Pro B Type Natriuretic Pept 156 pg/mL (0-125); Osmolality Calculated 287 mOsm/kg (285-295); Potassium 4.0 mmol/L (3.5-5.1); Sodium 139 mmol/L (136-145); Thyroid Stimulating Hormone 0.83 uIU/mL (0.27-4.20); Total Protein 5.8 g/dL (6.6-8.7)
[2024-10-04] MEDS: ondansetron 2 mg/ML SDV 2 mL 4 MG IVP (16:39)
[2024-10-04 16:59] VITALS: BP 127/98; PULSE 79; RESP 16; O2SAT 99
== END 2024-10-04 16:58 | disposition home or self-care (01) ==
PROVIDERS: Emergency Provider Emergency Medicine; PCP Family Medicine
DX: R00.2 Palpitations (principal); D64.9 Anemia, unspecified; Z79.01 Long term (current) use of anticoagulants
CPT/HCPCS: 71045; 80053; 80306; 81025; 82550; 83690; 83880; 84443; 84484; 85025; 85378; 93005; 96361; 96374; 99285; J2405; J7030

== ENCOUNTER 2024-10-04 21:51 | Emergency (ER) | payer MEDICAID, SELFPAY ==
[2024-10-04 21:56] VITALS: BP 131/80; PULSE 99; RESP 16; TEMP 36.8; O2SAT 98; BMI 23.0
--- OUTSIDE RECORDS SUMMARY | 2024-10-04 21:57 | XMS_ITS | Clinical Summary ---
Author Organization [facility] Address [address] [place] [address] Care Team Providers Care Assistant Corporation Counsel Name Role Phone Joaquin Mak MD Primary Care Provider [phone] Allergies Active Allergy Reactions Criticality Noted Date [...] on file Legal Sex Female 11:32 PM COUNTRY DIRECTOR Gender Identity Not on file Sexual Orientation Not on file Last Filed Vital Signs Vital Sign Reading Time Taken Comments Blood Pressure 92/54 05/17/2023 10:35 AM CDT Pulse 75 12/29/2019 3:14 PM COUNTRY DIRECTOR Temperature 37.2 C (98.9 F) 12/29/2019 2:03 PM COUNTRY DIRECTOR Respiratory Rate 18 12/29/2019 3:14 PM COUNTRY DIRECTOR Oxygen Saturation - - Inhaled Oxygen [...] (2 - Td or Tdap) 09/11/2032 Insurance [facility] [employer] [employer] [place] [address] [id number] Care Teams Assistant Corporation Counsel Relationship Specialty Start Date End Date Joaquin Mak MD [address] [phone] PCP - General Family Practice 12/29/19
--- OUTSIDE RECORDS SUMMARY | 2024-10-04 21:57 | XMS_ITS | Clinical Summary ---
Author Organization [facility] Address [address] [place] [address] Care Team Providers Care Thread Reeler Name Role Phone Joaquin Mak MD Primary Care Provider [phone] Allergies Active Allergy Reactions Criticality Noted Date [...] Comments Blood Pressure 119/75 12/29/2019 3:14 PM BLOCK ENGRAVER Pulse 75 12/29/2019 3:14 PM BLOCK ENGRAVER Temperature 37.2 C (98.9 F) 12/29/2019 2:03 PM BLOCK ENGRAVER Respiratory Rate 18 12/29/2019 3:14 PM BLOCK ENGRAVER Oxygen Saturation 99% 12/29/2019 3:14 PM BLOCK ENGRAVER Inhaled Oxygen Concentration - - Weight 47.6 kg (105 lb) 12/29/2019 2:03 PM BLOCK ENGRAVER Height 149.9 cm (4' 11 ) 12/29/2019 2:03 PM BLOCK ENGRAVER Body Mass Index 21.21 12/29/2019 2:03 PM BLOCK ENGRAVER Plan of Treatment Health Maintenance Due Date Last Done Comments HPV VACCINES (1 - 3-dose series) 2004 DTAP/TDAP/TD VACCINES (1 - Tdap) 2008 HEPATITIS B VACCINES (1 of 3 - 19+ 3-dose series) 09/19 HPV/Cotest (21-29) 2010 CERVICAL CANCER SCREENING 10/03/2019 HPV/Cotest (30-65) 10/03/2019 PAP SMEAR 10/03/2019 INFLUENZA VACCINE (#1) 2024 Insurance Care Teams Thread Reeler Relationship Specialty Start Date End Date Joaquin Mak MD [address] [id number] PCP - General Family Practice 12/29/19
--- NOTE | 2024-10-05 00:34 | W.ED.GENADLT ---
HPI - General Adult General: Chief complaint: General Medical Stated complaint: high heart rate, blood in vomit Time Seen by Provider: 10/05/24 00:15 History of Present Illness: This 34-year-old female presents with acute onset of hematemesis following a recent discharge from the emergency department. While in the waiting room after discharge, she developed sudden onset of dizziness accompanied by diaphoresis and abdominal pain. She subsequently experienced multiple episodes of vomiting over approximately 30 minutes, describing the emesis as water-like with blood clots and round chunks of blood. The patient reports having consumed only water since her previous visit. She also reports concurrent diarrhea, which was attributed to her known C. difficile infection prior. The abdominal pain is localized beneath her ribs bilaterally and remains tender to palpation. She denies any history of hematemesis prior to today's episode. The patient denies fever and is not currently taking any blood thinning medications. Related Data Home Medications ?Medication ?Instructions ?Recorded ?Confirmed alprazolam 0.25 mg tablet 0.25 mg PO TID PRN Anxiety 08/06/23 10/02/24 topiramate 200 mg tablet 200 mg PO BID 02/21/24 10/02/24 apixaban 5 mg tablet (Eliquis) 5 mg PO BID 09/07/24 10/02/24 Previous Rx's ?Medication ?Instructions ?Recorded hydrocodone 5 mg-acetaminophen 325 1 tab PO Q6H PRN pain #30 tabs 07/16/24 mg tablet fluoxetine 40 mg capsule (Prozac) 40 mg PO DAILY #30 caps 09/01/24 gabapentin 300 mg capsule 300 mg PO QID 30 days #120 caps 09/09/24 sennosides 8.6 mg tablet 8.6 mg PO DAILY #20 tabs 09/09/24 (Evac-U-Gen (sennosides)) cefdinir 300 mg capsule 300 mg PO BID #14 caps 09/14/24 ondansetron 4 mg disintegrating 4 mg PO TID PRN Nausea And 09/14/24 tablet Vomiting #14 tabs tramadol 50 mg tablet 50 mg PO Q4H PRN Mild Pain (Scale 09/14/24 Score 1-4) #10 tabs ciprofloxacin HCl 500 mg tablet 500 mg PO BID 10 days #20 tabs 09/26/24 promethazine 25 mg rectal 25 mg [place] Q6H PRN nausea and 09/26/24 suppository vomiting #12 ea omeprazole 40 mg capsule,delayed 40 mg PO DAILY 4 weeks #40 caps 10/05/24 release ondansetron 8 mg disintegrating 8 mg PO Q6H #14 tabs 10/05/24 tablet Allergies Allergy/AdvReac Type Severity Reaction Status Date / Time methylprednisolone Allergy Severe ALGY-Anaphy Verified 10/02/24 10:52 laxis Latex, Natural Rubber Allergy Intermediate rash, hives Verified 10/02/24 10:52 amoxicillin Allergy ALGY-Hives Verified 10/02/24 10:52 cefdinir Allergy Unknown Verified 10/02/24 10:52 methotrexate AdvReac Intermediate migraines, Verified 10/02/24 10:52 N/V PFSH ED PFSH: Medical History (Updated 10/05/24 @ 01:59 by Edward Hilario DO) Bipolar disorder, unspecified Family history of colon cancer Bilateral pulmonary embolism Vapes nicotine containing substance Seizures Hx of migraines Ovarian mass, right Family history of psoriasis in father High risk medication use Inflammatory back pain Inflammatory arthritis Psychiatric care 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 Moshre at [facility] History of tubal ligation 12/2015- per Dr. Mosher at [facility] H/O removal of cyst [address] Mosher Family History Mother Stroke Hyperlipidemia Family history of thyroid problem Hypertension Cancer of tongue Father Degenerative disc disease Diabetes Unknown Breast cancer maternal great aunt Grandmother Ovarian cancer maternal Uterine cancer maternal Other Cancer Chronic kidney disease (CKD) Rheumatoid arthritis Denies family history of Lupus Social History Smoking and tobacco/nicotine status: never used tobacco/nicotine Second hand smoke exposure: No Alcohol intake: never Substance/Drug Use: never Physical Exam Const: COMMON NORMALS: no acute distress GENERAL APPEARANCE: cooperative; not ill appearing and not frail appearing HENMT: COMMON NORMALS: normocephalic, atraumatic and Normal external nose present HEAD & SCALP: normocephalic and atraumatic FACE & SINUS: normal facial exam and face symmetric NOSE: Normal external nose present Eye: COMMON NORMALS: Equal, round and reactive pupils present and EOMs intact bilaterally PUPIL: Yes Equal, round and reactive pupils present Neck/C-Spine: GENERAL: Yes trachea midline Chest: CHEST: Yes Symmetrical chest wall rise Resp: COMMON NORMALS: normal respiratory effort, No retractions, No use of accessory muscles and clear to auscultation bilaterally AUSCULTATION: clear to auscultation bilaterally Cardio: COMMON NORMALS: regular rate and regular rhythm RATE: regular rate RHYTHM: regular rhythm GI: COMMON NORMALS: Soft to palpation INSPECTION: Yes normal to inspection and No abdominal distension PALPATION: Yes Soft to palpation and Yes Tenderness to palpation present (GI) (diffuse) Extremity: COMMON NORMALS: no pedal edema Neuro: ZONIA COMA SCALE: document GCS findings [place] coma scale eye opening: Spontaneous [place] coma scale verbal response: Orientated [place] coma scale motor response: Obey commands [place] coma scale total score: 15 SENSORY EXAM: Yes extremities (intact) Psych: COMMON NORMALS: speech normal SPEECH: Yes normal speech Skin: COMMON NORMALS: no rashes or lesions noted GENERAL SKIN EXAM: no rashes or lesions noted Course Vital Signs: Vital signs: Vital Signs Temperature 98.2 F 10/04/24 21:56 Pulse Rate 94 10/05/24 03:00 Respiratory Rate 18 10/05/24 03:00 Blood Pressure 119/71 10/05/24 03:00 Pulse Oximetry 98 10/05/24 03:00 Oxygen Delivery Me thod Room Air 10/04/24 21:56 [facility] - General Adult Medical Decision Making No witnessed vomiting here. Hemoglobin is stable despite evidently vomiting in the waiting room. Her vitals are good. She will be discharged. Will ask case management to set the patient up with an appointment with surgery clinic in case endoscopy is necessary. Lab Data 10/05/24 00:55 10/05/24 00:55 Radiology Impressions KUB X-Ray 10/05/24 01:36 IMPRESSION: 1. Fecal stasis. Laboratory Results WBC 6.77 10^3/uL (3.29-11.43) 10/05/24 00:55 RBC 3.49 10^6/uL (3.85-5.65) L 10/05/24 00:55 Hgb 8.90 g/dL (11.27-16.99) L 10/05/24 00:55 Hct 30.7 % (36-47) L 10/05/24 00:55 MCV 88.0 fl (85-98) 10/05/24 00:55 MCH 25.5 pg (27-33) L 10/05/24 00:55 MCHC 29.0 g/dL (30-55) L 10/05/24 00:55 RDW 15.5 % (12.1-15.1) H 10/05/24 00:55 Plt Count 323 10^3/cmm (157-399) 10/05/24 00:55 MPV 10.3 fL (7.4-10.4) 10/05/24 00:55 Neut % (Auto) 55.5 % 10/05/24 00:55 Lymph % (Auto) 34.1 % 10/05/24 00:55 [place] % (Auto) 5.0 % 10/05/24 00:55 Eos % (Auto) 3.8 % 10/05/24 00:55 Baso % (Auto) 1.5 % 10/05/24 00:55 Neut # (Auto) 3.75 10^3/uL (1.8-7.7) 10/05/24 00:55 Lymph # (Auto) 2.3 10^3/uL (0.8-4.8) 10/05/24 00:55 [place] # (Auto) 0.3 10^3/uL (0.2-0.9) 10/05/24 00:55 Eos # (Auto) 0.3 10^3/uL (0.0-0.8) 10/05/24 00:55 Baso # (Auto) 0.1 10^3/uL (0.0-0.1) 10/05/24 00:55 Nucleated RBC % (auto) 0 % 10/05/24 00:55 Nucleated RBCs # 0.0 /100WBC 10/05/24 00:55 PT 12.80 SECONDS (12.1-14.9) 10/05/24 00:55 INR 0.90 (0.8-1.2) 10/05/24 00:55 Sodium 138 mmol/L (136-145) 10/05/24 00:55 Potassium 4.2 mmol/L (3.5-5.1) 10/05/24 00:55 Chloride 107 mmol/L (98-107) 10/05/24 00:55 Carbon Dioxide 20 mmol/L (22-29) L 10/05/24 00:55 Anion Gap 15.2 (5-19) 10/05/24 00:55 BUN 8 mg/dL (6-20) 10/05/24 00:55 Creatinine 0.6 mg/dL (0.5-0.9) 10/05/24 00:55 GFR Calculation 113.8 mL/min (90-130) 10/05/24 00:55 Glucose 84 mg/dL (65-115) 10/05/24 00:55 Calculated Osmolality 284 mOsm/kg (285-295) L 10/05/24 00:55 Lactic Acid 0.5 mmol/L (0.5-2.2) 10/05/24 00:55 Calcium 8.2 mg/dL (8.5-10.5) L 10/05/24 00:55 Total Bilirubin 0.7 mg/dL (0.15-1.2) 10/05/24 00:55 AST 35 U/L (0-32) H 10/05/24 00:55 ALT 37 U/L (0-33) H 10/05/24 00:55 Alkaline Phosphatase 153 U/L (35-105) H 10/05/24 00:55 Total Protein 6.2 g/dL (6.6-8.7) L 10/05/24 00:55 Albumin 3.8 g/dL (3.5-5.2) 10/05/24 00:55 Globulin 2.4 g/dL (1.3-4.6) 10/05/24 00:55 Lipase 17 U/L (13-60) 10/05/24 00:55 All radiology interpretation(s) finalized by discharge Discharge Plan Discharge Patient Disposition: Home Clinical Impression: GI bleed, Vomiting Condition: Stable Prescriptions: Continued omeprazole 40 mg capsule,delayed release(DR/EC) 40 mg PO DAILY 28 Days Qty: 40 0RF ondansetron 8 mg tablet,disintegrating 8 mg PO Q6H Qty: 14 0RF Rx Instructions: Take 1/2-1 tab every 6 hours as needed for nausea and vomiting No Action fluoxetine [Prozac] 40 mg capsule 40 mg PO DAILY Qty: 30 2RF topiramate 200 mg tablet 200 mg PO BID hydrocodone-acetaminophen 5-325 mg tablet 1 tab PO Q6H PRN (Reason: pain) Qty: 30 0RF Eliquis 5 mg tablet 5 mg PO BID gabapentin 300 mg capsule 300 mg PO QID 30 Days Qty: 120 3RF sennosides [Evac-U-Gen (sennosides)] 8.6 mg tablet 8.6 mg PO DAILY Qty: 20 0RF cefdinir 300 mg capsule 300 mg PO BID Qty: 14 0RF tramadol 50 mg tablet 50 mg PO Q4H PRN (Reason: Mild Pain (Scale Score 1-4)) Qty: 10 0RF ondansetron 4 mg tablet,disintegrating 4 mg PO TID PRN (Reason: Nausea And Vomiting) Qty: 14 0RF promethazine 25 mg suppository 25 mg [place] Q6H PRN (Reason: nausea and vomiting) Qty: 12 0RF ciprofloxacin HCl 500 mg tablet 500 mg PO BID 10 Days Qty: 20 0RF alprazolam 0.25 mg tablet 0.25 mg PO TID PRN (Reason: Anxiety) Discharge Orders: Discharge ED (Routine); Ordered 10/05/24 Ordered By: Edward Hilario Referrals: Joaquin Mak MD [Primary Care Provider, Family Practice] Patient Instructions: Gastrointestinal Bleeding (ED), Opioid Safety, Pain Management, Patient Portal & Ben Instructions Activity Restrictions/Additional Instructions: Despite the vomiting, your blood counts stayed stable from earlier. Medication is prescribed for nausea, and to prevent rebleeding. Take as directed. Case management will make you an appointment with surgery clinic for follow-up to see if endoscopy or scope is needed. Return for problems. Print Language: Italian Coding Level of Care Code ED Sheet Turner for Mark Berg
[2024-10-05 01:22] LABS: INR 0.90 (0.8-1.2); Prothrombin Time 12.80 SECONDS (12.1-14.9)
[2024-10-05 01:29] LABS: Hematocrit 30.7 % (36-47); Hemoglobin 8.90 g/dL (11.27-16.99); Mean Corpuscular HGB Conc 29.0 g/dL (30-55); Mean Corpuscular Hemoglobin 25.5 pg (27-33); Mean Corpuscular Volume 88.0 fl (85-98); Nucleated Red Blood Cells % 0 %; Platelet Count 323 10^3/cmm (157-399); Red Blood Count 3.49 10^6/uL (3.85-5.65); White Blood Count 6.77 10^3/uL (3.29-11.43)
[2024-10-05 01:30] LABS: Alanine Aminotransferase 37 U/L (0-33); Albumin Level 3.8 g/dL (3.5-5.2); Alkaline Phosphatase 153 U/L (35-105); Anion Gap 15.2 (5-19); Aspartate Amino Transferase 35 U/L (0-32); Blood Urea Nitrogen 8 mg/dL (6-20); Calcium 8.2 mg/dL (8.5-10.5); Carbon Dioxide 20 mmol/L (22-29); Chloride 107 mmol/L (98-107); Creatinine Clr Calc Pharmacy 106.8314; Globulin 2.4 g/dL (1.3-4.6); Glucose 84 mg/dL (65-115); Lipase 17 U/L (13-60); Osmolality Calculated 284 mOsm/kg (285-295); Potassium 4.2 mmol/L (3.5-5.1); Sodium 138 mmol/L (136-145); Total Protein 6.2 g/dL (6.6-8.7)
[2024-10-05 01:31] LABS: Lactic Sepsis W/Reflex 0.5 mmol/L (0.5-2.2)
--- NOTE | 2024-10-05 01:36 | XRR_ITS ---
PROCEDURE INFORMATION: Exam: XR Abdomen Exam date and time: 10/05/2024 1:41 AM Age: 34 years old Clinical indication: Abdominal pain; Generalized; Prior surgery; Surgery date: 6+ months; Surgery type: Gb. Hysterectomy; Diffuse abd pain TECHNIQUE: Imaging protocol: Radiologic exam of the abdomen. Views: Frontal supine view of the abdomen. 1 View. COMPARISON: CT abdomen pelvis w con* [id number] 09/14/2024 12:02 AM FINDINGS: Gastrointestinal tract: No dilated loops of large or small bowel is appreciated. There is a moderate amount of stool within the colon. No pathologic calcifications are noted. Intraperitoneal space: Surgical clips are seen within the right upper quadrant. Bones/joints: Unremarkable. XR/XR KUB portable [id number] IMPRESSION: 1. Fecal stasis.
[2024-10-05 03:00] VITALS: BP 119/71; PULSE 94; RESP 18; O2SAT 98
--- NOTE | 2024-10-08 09:09 | DCPLANNER ---
Message sent to General surgery -No witnessed vomiting here. Hemoglobin is stable despite evidently vomiting in the waiting room. Her vitals are good. She will be discharged. Will ask case management to set the patient up with an appointment with surgery clinic in case endoscopy is necessary.
== END 2024-10-05 03:02 | disposition home or self-care (01) ==
PROVIDERS: Emergency Provider Emergency Medicine; PCP Family Medicine
DX: K92.2 Gastrointestinal hemorrhage, unspecified (principal); R11.10 Vomiting, unspecified; Z79.01 Long term (current) use of anticoagulants
CPT/HCPCS: 74018; 80053; 83605; 83690; 85025; 85610; 99284

== ENCOUNTER 2024-10-28 10:12 | Emergency (ER) | payer MEDICAID, SELFPAY ==
--- OUTSIDE RECORDS SUMMARY | 2023-12-15 04:00 | XMS_ITS ---
Author Organization [facility] Address [address] [place] [address] Care Team Providers Care Neurology Hospitalist Name Role Phone Jean-Paul Nichols Primary Care Provider Unavailabl e Migration, Provider Unavailable Unavailable REASON FOR VISIT EMR-Ellis Encounters Encounter Location Date Provider Diagnosis Migrated_Facility 0 0 12/15/2023 Provider Migration Plan Of Treatment Medication Medication Name Sig Start Date Stop Date Notes Acetaminophen-Codeine 300-30 MG Oral Tablet 1 Tablet every 6 hours - Do Not Exceed 4 Tablets Per Day. 08/17/2023 09/16/2023 *Reorder from [facility] for eRx and Interaction Alerts* traMADol HCl 50 MG Tablet 1 Tablet every 6 hours PRN Oral 05/24/2023 06/23/2023 Progress Notes * NESBITT Mary ADOB:[birth year] (34 yo F)Acc No.[id number]:12/15/2023 Patient: Mary POWERS :1990 A ge:33 Y S ex:Female Address:[address] [place] [address], [address] * Refills Stop traMADol HCl Tablet, 50 MG, Oral, 1 Tablet every 6 hours PRN Stop Acetaminophen-Codeine 300-30 MG Oral Tablet, 1 Tablet every 6 hours - Do Not Exceed 4 Tablets Per Day. Subjective: * Chief Complaints: * E MR-Ellis * * Date:
--- OUTSIDE RECORDS SUMMARY | 2023-12-16 04:00 | XMS_ITS ---
Author Organization [facility] Address [address] [place] [address] Care Team Providers Care Strip Winder Name Role Phone Jean-Paul Nichols Primary Care Provider Unavailabl e Migration, Provider Unavailable Unavailable Allergies Allergen (clinical drug ingredient) Drug/Non Drug Allergy documented on EMR Reaction Allergy Type Onset Date Status amoxicillin Amoxicillin Hives Drug Allergy Act bert Latex Latex Rash Allergy Active REASON FOR VISIT [facility]MR[facility] [place]ations Medication SIG (Take, Route, Frequency, Duration) Notes Start Date End Date Status Topiramate *[facility]* Active Gabapentin *[facility]* Active Vitamin D3 *[facility]* Active Leflunomide *[facility]* Active tramadol *Reorder from [facility] for eRx and Interaction Alerts* Active [...] Mary NESBITT ADOB:[birth year] (34 yo F)Acc No.[id number]:12/16/2023 Patient: Mary POWRES :1990 A ge:33 Y S ex:Female Address:[address] [place] [address], [address] Subjective: * Chief Complaints: * E MR-Ellis [...]
[2024-10-28 10:13] VITALS: BP 110/82; PULSE 72; RESP 14; TEMP 36.8; O2SAT 100; BMI 23.2
--- NOTE | 2024-10-28 10:13 | ECG_ITS ---
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 Measurements Intervals [place] Rate: 70 P: 35 OR: 186 QRS: 30 QRSD: 74 T: 24 QT: 369 QTc: 398 Interpretive Statements SINUS RHYTHM SEPTAL MYOCARDIAL INFARCTION , OF INDETERMINATE AGE [40+ ms Q WAVE IN V1/V2] NONSPECIFIC ST DEPRESSION Compared to ECG 10/04/2024 13:02:04 VOLTAGE HAS INCREASED AND MILD ST DEPRESSION IS NEW Electronically Signed On 10-29-2024 21:02:39 CDT by Alvin Tovar M.D. [email or web address]
--- NOTE | 2024-10-28 10:19 | W.ED.GENADLT ---
HPI - General Adult General: Chief complaint: Chest Pain Stated complaint: All over pain Time Seen by Provider: 10/28/24 10:12 History of Present Illness: 34-year-old female presents emergency room with multiple complaints. She complaining of pain all over . Patient states she has bleeding ulcers states she has been vomiting blood and passing blood in the stool for a week. She was cleaning her cell and she got lightheaded dizzy pale for a minute. She states been going on for a week. Denies fever sweats or chills she is has an appointment for Dr. Chowdary for EGD. Recently started on metronidazole for trichomonas as well as ciprofloxacin. Associated symptoms: Reports nausea; Deny chest pain, dyspnea or rash Related Data Home Medications ?Medication ?Instructions ?Recorded ?Confirmed alprazolam 0.25 mg tablet 0.25 mg PO TID PRN Anxiety 08/06/23 10/02/24 topiramate 200 mg tablet 200 mg PO BID 02/21/24 10/02/24 apixaban 5 mg tablet (Eliquis) 5 mg PO BID 09/07/24 10/02/24 Previous Rx's ?Medication ?Instructions ?Recorded hydrocodone 5 mg-acetaminophen 325 1 tab PO Q6H PRN pain #30 tabs 07/16/24 mg tablet fluoxetine 40 mg capsule (Prozac) 40 mg PO DAILY #30 caps 09/01/24 gabapentin 300 mg capsule 300 mg PO QID 30 days #120 caps 09/09/24 sennosides 8.6 mg tablet 8.6 mg PO DAILY #20 tabs 09/09/24 (Evac-U-Gen (sennosides)) cefdinir 300 mg capsule 300 mg PO BID #14 caps 09/14/24 ondansetron 4 mg disintegrating 4 mg PO TID PRN Nausea And 09/14/24 tablet Vomiting #14 tabs tramadol 50 mg tablet 50 mg PO Q4H PRN Mild Pain (Scale 09/14/24 Score 1-4) #10 tabs promethazine 25 mg rectal 25 mg PA Q6H PRN nausea and 09/26/24 suppository vomiting #12 ea omeprazole 40 mg capsule,delayed 40 mg PO DAILY 4 weeks #40 caps 10/05/24 release ondansetron 8 mg disintegrating 8 mg PO Q6H #14 tabs 10/05/24 tablet pantoprazole 40 mg tablet,delayed 40 mg PO DAILY #40 tabs 10/28/24 release (Protonix) sucralfate 1 gram tablet (Carafate) 1 g PO Q6H PRN stomach upset #30 10/28/24 tabs Allergies Allergy/AdvReac Type Severity Reaction Status Date / Time methylprednisolone Allergy Severe ALGY-Anaphy Verified 10/28/24 10:29 laxis Latex, Natural Rubber Allergy Intermediate rash, hives Verified 10/28/24 10:29 amoxicillin Allergy ALGY-Hives Verified 10/28/24 10:29 cefdinir Allergy Unknown Verified 10/28/24 10:29 methotrexate AdvReac Intermediate migraines, Verified 10/28/24 10:29 N/V Review of Systems Const: Denies: fever(s) or chills Card: Denies: chest pain Resp: Denies: dyspnea GI: Reports: abdominal pain, nausea, hematemesis and hematochezia : Denies: dysuria, urinary frequency or urinary urgency Musc: Denies: neck pain or back pain Skin/Breast: Denies: rash PFSH ED PFSH: Medical History Bipolar disorder, unspecified Family history of colon cancer Bilateral pulmonary embolism Vapes nicotine containing substance Seizures Hx of migraines Ovarian mass, right Family history of psoriasis in father High risk medication use Inflammatory back pain Inflammatory arthritis Psychiatric care Other residential (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 Mosher at [facility] History of tubal ligation 12/2015- per Dr. Mosher at [facility] H/O removal of cyst [address] Mosher Family History Mother Stroke Hyperlipidemia Family history of thyroid problem Hypertension Cancer of tongue Father Degenerative disc disease Diabetes Unknown Breast cancer maternal great aunt Grandmother Ovarian cancer maternal Uterine cancer maternal Other Cancer Chronic kidney disease (CKD) Rheumatoid arthritis Denies family history of Lupus Social History Smoking and tobacco/nicotine status: never used tobacco/nicotine Second hand smoke exposure: No Alcohol intake: never Substance/Drug Use: never Physical Exam Const: COMMON NORMALS: no acute distress GENERAL APPEARANCE: cooperative and comfortable ORIENTATION/CONSCIOUSNESS: Yes awake, Yes oriented to person, Yes oriented to place and Yes oriented to time HENMT: COMMON NORMALS: normocephalic, atraumatic and hearing grossly normal bilaterally HEAD & SCALP: normocephalic and atraumatic Resp: COMMON NORMALS: normal respiratory effort, No retractions, No use of accessory muscles and clear to auscultation bilaterally AUSCULTATION: clear to auscultation bilaterally Cardio: COMMON NORMALS: regular rate, regular rhythm and No murmurs present (Cardio) RATE: regular rate RHYTHM: regular rhythm GI: COMMON NORMALS: Soft to palpation and No hepatosplenomegaly present AUSCULTATION: Yes normoactive bowel sounds PALPATION: Yes Soft to palpation, No Tenderness to palpation present (GI), No Guarding due to palpation present (GI) and Yes No hepatosplenomegaly present Extremity: COMMON NORMALS: normal to inspection, capillary refill normal, no clubbing, cyanosis or edema, no calf tenderness and no pedal edema Neuro: SENSORIUM/ORIENTATION: Yes oriented to person, Yes oriented to place and Yes oriented to time Skin: COMMON NORMALS: no rashes or lesions noted GENERAL SKIN EXAM: no rashes or lesions noted Course Vital Signs: Vital signs: Vital Signs Temperature 98.3 F 10/28/24 10:13 Pulse Rate 72 10/28/24 10:29 Respiratory Rate 14 10/28/24 10:13 Blood Pressure 98/75 10/28/24 10:29 Pulse Oximetry 100 10/28/24 10:13 [facility] - General Adult Medical Decision Making Stool for occult blood negative hemoglobin actually improving. Suspect some of her symptoms may be from metronidazole and the Cipro. Orthostatics did not show any significant change. Will discharge patient. Change her from omeprazole to pantoprazole add Carafate complete the antibiotics. Follow-up with Dr. Chowdary as scheduled Medical Records I reviewed the patient's medical records. Lab Data I reviewed the patient's lab results. 10/28/24 10:35 10/28/24 10:35 Radiology Impressions Chest X-Ray 10/28/24 10:30 Impression: Negative chest. Laboratory Results WBC 5.67 10^3/uL (3.29-11.43) 10/28/24 10:35 RBC 4.08 10^6/uL (3.85-5.65) 10/28/24 10:35 Hgb 10.20 g/dL (11.27-16.99) L 10/28/24 10:35 Hct 35.5 % (36-47) L 10/28/24 10:35 MCV 87.0 fl (85-98) 10/28/24 10:35 MCH 25.0 pg (27-33) L 10/28/24 10:35 MCHC 28.7 g/dL (30-55) L 10/28/24 10:35 RDW 15.8 % (12.1-15.1) H 10/28/24 10:35 Plt Count 375 10^3/cmm (157-399) 10/28/24 10:35 MPV 11.2 fL (7.4-10.4) H 10/28/24 10:35 Neut % (Auto) 45.8 % 10/28/24 10:35 Lymph % (Auto) 34.9 % 10/28/24 10:35 [place] % (Auto) 7.8 % 10/28/24 10:35 Eos % (Auto) 9.5 % 10/28/24 10:35 Baso % (Auto) 1.8 % 10/28/24 10:35 Neut # (Auto) 2.60 10^3/uL (1.8-7.7) 10/28/24 10:35 Lymph # (Auto) 2.0 10^3/uL (0.8-4.8) 10/28/24 10:35 [place] # (Auto) 0.4 10^3/uL (0.2-0.9) 10/28/24 10:35 Eos # (Auto) 0.5 10^3/uL (0.0-0.8) 10/28/24 10:35 Baso # (Auto) 0.1 10^3/uL (0.0-0.1) 10/28/24 10:35 Nucleated RBC % (auto) 0 % 10/28/24 10:35 Nucleated RBCs # 0.0 /100WBC 10/28/24 10:35 Sodium 139 mmol/L (136-145) 10/28/24 10:35 Potassium 4.0 mmol/L (3.5-5.1) 10/28/24 10:35 Chloride 112 mmol/L (98-107) H 10/28/24 10:35 Carbon Dioxide 21 mmol/L (22-29) L 10/28/24 10:35 Anion Gap 10.0 (5-19) 10/28/24 10:35 BUN 23 mg/dL (6-20) H 10/28/24 10:35 Creatinine 0.9 mg/dL (0.5-0.9) 10/28/24 10:35 GFR Calculation 71.3 mL/min (90-130) L 10/28/24 10:35 Glucose 73 mg/dL (65-115) 10/28/24 10:35 Calculated Osmolality 290 mOsm/kg (285-295) 10/28/24 10:35 Calcium 9.2 mg/dL (8.5-10.5) 10/28/24 10:35 Total Bilirubin 0.3 mg/dL (0.15-1.2) 10/28/24 10:35 AST 15 U/L (0-32) 10/28/24 10:35 ALT 9 U/L (0-33) 10/28/24 10:35 Alkaline Phosphatase 77 U/L (35-105) 10/28/24 10:35 C-Reactive Protein 3.0 mg/L (0.0-4.9) 10/28/24 10:35 Total Protein 7.2 g/dL (6.6-8.7) 10/28/24 10:35 Albumin 4.1 g/dL (3.5-5.2) 10/28/24 10:35 Globulin 3.1 g/dL (1.3-4.6) 10/28/24 10:35 Urine Color Yellow (Yellow) 10/28/24 10:45 Urine Appearance Cloudy (CLEAR) A 10/28/24 10:45 Urine pH 7.0 (5-7) 10/28/24 10:45 Ur Specific [place] 1.018 (1.005-1.030) 10/28/24 10:45 Urine Protein Negative (Negative) 10/28/24 10:45 Urine Glucose (UA) Negative (Normal) 10/28/24 10:45 Urine Ketones Negative (Negative) 10/28/24 10:45 Urine Blood Negative (Negative) 10/28/24 10:45 Urine Nitrate Negative (Negative) 10/28/24 10:45 Urine Bilirubin Negative (Negative) 10/28/24 10:45 Urine Urobilinogen 0.2 mg/dL (Negative) 10/28/24 10:45 Ur Leukocyte Esterase Trace (Negative) A 10/28/24 10:45 Urine RBC 0-2 /hpf (0-2) 10/28/24 10:45 Urine WBC 0-5 /hpf (0-5) 10/28/24 10:45 Ur Squamous Epith Cells 0-5 /hpf (0-5) 10/28/24 10:45 Amorphous Sediment Not Reportable 10/28/24 10:45 Urine Bacteria None seen /hpf (NONE) 10/28/24 10:45 Hyaline Casts 0.81 /lpf 10/28/24 10:45 All radiology interpretation(s) finalized by discharge Discharge Plan Discharge Patient Disposition: Home Clinical Impression: Abdominal pain, GERD (gastroesophageal reflux disease) Condition: Stable Prescriptions: New pantoprazole [Protonix] 40 mg tablet,delayed release (DR/EC) 40 mg PO DAILY Qty: 40 0RF Rx Instructions: 1 p.o. twice daily x 10 days and 1 p.o. daily sucralfate [Carafate] 1 gram tablet 1 g PO Q6H PRN (Reason: stomach upset) Qty: 30 0RF No Action fluoxetine [Prozac] 40 mg capsule 40 mg PO DAILY Qty: 30 2RF topiramate 200 mg tablet 200 mg PO BID hydrocodone-acetaminophen 5-325 mg tablet 1 tab PO Q6H PRN (Reason: pain) Qty: 30 0RF Eliquis 5 mg tablet 5 mg PO BID gabapentin 300 mg capsule 300 mg PO QID 30 Days Qty: 120 3RF sennosides [Evac-U-Gen (sennosides)] 8.6 mg tablet 8.6 mg PO DAILY Qty: 20 0RF cefdinir 300 mg capsule 300 mg PO BID Qty: 14 0RF tramadol 50 mg tablet 50 mg PO Q4H PRN (Reason: Mild Pain (Scale Score 1-4)) Qty: 10 0RF ondansetron 4 mg tablet,disintegrating 4 mg PO TID PRN (Reason: Nausea And Vomiting) Qty: 14 0RF promethazine 25 mg suppository 25 mg PA Q6H PRN (Reason: nausea and vomiting) Qty: 12 0RF alprazolam 0.25 mg tablet 0.25 mg PO TID PRN (Reason: Anxiety) omeprazole 40 mg capsule,delayed release(DR/EC) 40 mg PO DAILY 28 Days Qty: 40 0RF ondansetron 8 mg tablet,disintegrating 8 mg PO Q6H Qty: 14 0RF Rx Instructions: Take 1/2-1 tab every 6 hours as needed for nausea and vomiting Discharge Orders: Discharge ED (Routine); Ordered 10/28/24 Ordered By: Kris Odell Referrals: Joaquin Mak MD [Primary Care Provider, Family Practice] Discharge Diet: Usual diet Discharge Activity: Resume usual activity Patient Instructions: Abdominal Pain (ED), Opioid Safety, Pain Management, Patient Portal & Ben Instructions Activity Restrictions/Additional Instructions: Thank you for choosing [facility] for your healthcare needs today. It is very important that you follow up as instructed or that you return to the Emergency Department should you have concerns or if your condition changes or worsens in any way. Emergency department visits are focused on emergent conditions, in some cases you may require further evaluation on an outpatient basis. You were seen in the emergency room with complaints of abdominal pain. Laboratory test show your hemoglobin is improving. Stool for occult blood was negative for blood. Recommend that you stop the omeprazole start pantoprazole 1 pill twice a day for 10 days and 1 pill daily use Carafate 1 g every 6 hours as needed. Keep your appointment with Dr. Chowdary as scheduled. Chest x-ray and EKG were normal. Other chemistries and urine did not show clinically significant abnormalities. Your orthostatic blood pressures did not show significant drop. (Please note that included in your discharge packet is information concerning opioid safety and pain management. This information is given to all patients were discharged from the ER regardless of their discharge diagnosis or the medicines they usually take or are prescribed.) Print Language: Swazi Coding Level of Care Code ED Slot Floor Supervisor for Mark Berg
--- OUTSIDE RECORDS SUMMARY | 2024-10-28 10:28 | XMS_ITS | Patient Health Record ---
Author Organization [facility] Address [address] [place] [address] Care Team Providers Care Compatibility Test Engineer Name Role Phone Jean-Paul Nichols Primary Care Provider Unavailabl e Migration, Provider Unavailable Unavailable Jean-Paul Nichols Unavailable [phone] Candice Herndon Unavailable [phone] Reason For Referral No Information Medications Medication SIG (Take, Route, Frequency, Duration) Notes Start Date End Date Status Topiramate *Pick strength-f orm from [facility] for eRX* Active Gabapentin *Pick strength-f orm from [facility] for eRX* Active Vitamin D3 *Pick strength-f orm from [facility] for eRX* Active Leflunomide *Pick strength-f orm from [facility] for eRX* Active tramadol *[facility] and Interaction Alerts* Active Social [...] No Encounters Encounter Location Date Provider Diagnosis [facility] [place] [address] [place] [address] 11/28/2023 Jean-Paul Nichols [facility] [place] [address] [place] [address] 11/22/2023 Candice Herndon [facility] 0 0 12/16/2023 Provider Migration Migrated[facility]Facility 0 0 12/15/2023 Provider Migration Plan Of Treatment No Information Insurance Providers Payer Name Payer Address Payer Phone Subscriber Number Group Number Insured Name Patient Relationship to Insured Coverage Start Date Coverage End Date [facility] Health Plan Medicaid Replacement [address] [facility] [phone] [id number] Mary Nesbitt Self - patient is the insured Medical (General) History Surgical History Surgery Date(Month/Year) Gynecological surgeries
--- OUTSIDE RECORDS SUMMARY | 2024-10-28 10:28 | XMS_ITS | Clinical Summary ---
Author Organization [facility] Address [address] [place] [address] Care Team Providers Care Rotor Casting Machine Setup Operator Name Role Phone Joaquin Mak MD Primary Care Provider [phone] Allergies Active Allergy Reactions Criticality Noted Date [...] Comments Blood Pressure 119/75 12/29/2019 3:14 PM CRIMINAL LEGAL ASSISTANT Pulse 75 12/29/2019 3:14 PM CRIMINAL LEGAL ASSISTANT Temperature 37.2 C (98.9 F) 12/29/2019 2:03 PM CRIMINAL LEGAL ASSISTANT Respiratory Rate 18 12/29/2019 3:14 PM CRIMINAL LEGAL ASSISTANT Oxygen Saturation 99% 12/29/2019 3:14 PM CRIMINAL LEGAL ASSISTANT Inhaled Oxygen Concentration - - Weight 47.6 kg (105 lb) 12/29/2019 2:03 PM CRIMINAL LEGAL ASSISTANT Height 149.9 cm (4' 11 ) 12/29/2019 2:03 PM CRIMINAL LEGAL ASSISTANT Body Mass Index 21.21 12/29/2019 2:03 PM CRIMINAL LEGAL ASSISTANT Plan of Treatment Health Maintenance Due Date Last Done Comments DTAP/TDAP/TD VACCINES (1 - Tdap) 2008 HEPATITIS B VACCINES (1 of 3 - 19+ 3-dose series) 09/19 HPV/Cotest (21-29) 2010 HPV VACCINES (1 - 3-dose SCDM series) 2016 CERVICAL CANCER SCREENING 10/03/2019 HPV/Cotest (30-65) 10/03/2019 PAP SMEAR 10/03/2019 INFLUENZA VACCINE (#1) 2024 Insurance Care Teams Rotor Casting Machine Setup Operator Relationship Specialty Start Date End Date Joaquin Mak MD [address] [address] PCP - General Family Practice 12/29/19
--- OUTSIDE RECORDS SUMMARY | 2024-10-28 10:28 | XMS_ITS | Clinical Summary ---
Author Organization [facility] Address [address] [place] [address] Care Team Providers Care Science Job Titles Name Role Phone Joaquin Mak MD Primary Care Provider [phone] Allergies Active Allergy Reactions Criticality Noted Date Comments Amoxicillin Rash Low 10/14/2024 Latex Swelling Low 11/24/2019 Methotrexate Arrhythmia High 10/14/2024 Medications traMADoL (ULTRAM) 50 mg tablet 0 Active ondansetron (ZOFRAN ODT) 4 mg Tablet, Rapid Dissolve DISSOLVE 1 TABLET IN MOUTH THREE TIMES DAILY 4 Active gabapentin (NEURONTIN) 300 mg capsule Take 600 mg by mouth 3 times daily. 4 Active metoprolol tartrate (LOPRESSOR) 25 mg tablet Take 25 mg by mouth 2 times daily. Active promethazine (PHENERGAN) 12.5 mg Suppository Insert 12.5 mg by rectum every 12 hours as needed for Nausea/Emesis . Active cefdinir (OMNICEF) 300 mg capsule Take 1 Capsule (300 mg) by mouth every 12 hours for 7 days. 14 Capsule 5 10/22/19 25 metroNIDAZOLE (FLAGYL) 500 mg tablet Take 1 Tablet (500 mg) by mouth 2 times daily for 7 days. 14 Tablet 5 10/22/19 25 Active Problems Problem Noted Date Diagnosed Date Trichomoniasis 10/14/2024 Acute cystitis with hematuria 10/14/2024 History of endometriosis 05/17/2023 Ovarian cyst, left 05/17/2023 Anxiety state 11/24/2019 Dysthymic disorder 11/24/2019 Headache 11/24/2019 Bipolar affective 11/24/2019 Panic disorder 11/24/2019 Encounters Date Type Department Care Team Description 10/16/2024 Results Follow-Up [facility] Emergency Medicine [address] [facility] [address] [place] [address] Pastora Chamberlain RN GC/CHLAMYDIA, UROGENITAL, URINE CULTURE 10/14/2024 1:54 PM CDT - 10/14/2024 5:32 PM CDT Emergency [facility] Emergency Medicine [address] [facility] [address] [place] [address] Rafael De Luna MD Trichomoniasis (Primary Dx); Acute cystitis with hematuria Discharge Disposition: Home or Self Care 10/14/2024 Travel 09/03/2024 External Device Data STL ABSTRACTION Provider, [...] drink = 0.6 oz pur e alcohol) [facility] Utilities Answer Date Recorded In the past 12 months has [facility] [place], gas, oil, or water [employer] threatened to shut off services in your [...] week 05/17/2023 How often do you attend spiritism or moravian serv ices? Never 05/17/2023 Do you belong to any clubs o r organizations such as spiritism groups, unions, fraternal or athletic groups, or [...] the Last Year Not on file 05/17/2023 Feeling Safe Answer Date Recorded Are you in a relationship wi th someone who hurts you emotionally and/or physically? 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 Gender Identity Not on file Sexual Orientation Not on file Last Filed Vital Signs Vital Sign Reading Time Taken Comments Blood Pressure 116/74 10/14/2024 5:15 PM CDT Pulse 83 10/14/2024 5:15 PM CDT Temperature 36.8 C (98.2 F) 10/14/2024 5:15 PM CDT Respiratory Rate 16 10/14/2024 2:00 PM CDT Oxygen Saturation 98% 10/14/2024 5:15 PM CDT Inhaled Oxygen Concentration - - Weight 52.2 kg (115 lb) 10/14/2024 2:00 PM CDT Height 149.9 cm (4' 11 ) 10/14/2024 2:00 PM CDT Body Mass Index 23.23 10/14/2024 2:00 PM CDT Plan of Treatment Health Maintenance Due Date Last Done Comments HEPATITIS B VACCINES (1 of 3 - 19+ 3-dose series) 2008 HPV/Cotest (21-29) 2010 HPV VACCINES (1 - 3-dose SCDM series) 2016 CERVICAL CANCER SCREENING 10/03/2019 HPV/Cotest (30-65) 10/03/2019 PAP SMEAR 10/03/2019 INFLUENZA VACCINE (#1) 2024 10/18/2018, 2015 DTAP/TDAP/TD VACCINES (2 - Td or Tdap) 09/11/2032 Procedures Procedure Name Priority Date/Time Associated Diagnosis Comments OCCULT BLOOD GUAIAC SCREEN, 1-3 CARDS Stat 10/14/2024 3:50 PM CDT C. DIFFICILE DETECTION Stat 3:50 PM CDT URINALYSIS MICROSCOPY ONLY Stat 10/14/2024 2:50 PM CDT URINALYSIS W/REFLEX MICROSCOPIC Stat 10/14/2024 2:50 PM CDT GC/CHLAMYDIA, UROGENITAL Stat 10/14/2024 2:50 PM CDT URINE CULTURE Stat 10/14/2024 2:50 PM CDT MAGNESIUM LEVEL Stat 10/14/2024 2:11 PM CDT C-REACTIVE PROTEIN Stat 10/14/2024 2: 11 PM CDT LACTIC ACID Stat 10/14/2024 2:11 PM CDT LIPASE Stat 10/14/2024 2:11 PM CDT COMPREHENSIVE METABOLIC PANEL Stat 10/14/2024 2:11 PM CDT PTT Stat 10/14/2024 2:11 PM CDT PROTIME-INR Stat 10/14/2024 2:11 PM CDT SEDIMENTATION RATE Stat 10/14/2024 2: 11 PM CDT CBC WITH DIFFERENTIAL Stat 10/14/2024 2:11 PM CDT from Last 3 Months Results * OCCULT BLOOD GUAIAC SCREEN, 1-3 CARDS (10/14/2024 3:50 PM CDT) OCCULT BLOOD, # OF SPECIMENS TESTED 1 10/14/2024 4:24 PM CDT [facility] OCCULT BLOOD #1 Negative Negative 10/14/2024 4:24 PM CDT [facility] OB #1, DATE/TIME COLLECTED 10/14/2024 @ 15:50 10/14/2024 4:24 PM CDT [facility] Stool STOOL SPECIMEN / Unknown Collection / Unknown 10/14/2024 3:50 PM CDT 10/14/2024 4:18 PM CDT Rafael De Luna MD BODY FLUIDS AND STOOLS Final Re sult [facility] CLIA # [id number] [address] [place] [address] * C. DIFFICILE DETECTION (10/14/2024 3:50 PM CDT) Pathologist [facility] C DIFFICILE TOXIN NOT DETECTED Not Detected 10/14/2024 4:38 PM CDT [facility] Stool STOOL SPECIMEN / Unknown Collection / Unknown 10/14/2024 3:50 PM CDT 10/14/2024 4:18 PM CDT [facility] - 10/14/2024 4:38 PM CDT This assay tests for C. difficile Toxin A and/or Toxin B, by non-PCR methodology. Rafael De Luna MD MICROBIOLOGY - GENERAL ORDERABL ES Final Result Performing Organization Address [facility]/ZIP Co de Phone Number [facility] CLIA # [id number] [address] [place] [address] [phone] * GC/CHLAMYDIA, UROGENITAL (10/14/2024 2:50 PM CDT) [facility] CHLAMYDIA DNA AMPLIFICATION NOT DETECTED Not Detected 10/15/2024 7:04 PM CDT [facility] GC DNA AMPLIFICATION NOT DETECTED Not Detected 10/15/2024 7:04 PM CDT [facility] Urine (Urine, 1st catch) Collection / Unknown 10/14/2024 2:50 PM CDT 10/14/2024 3:26 PM CDT Narrative [facility] - 10/15/2024 7:04 PM CDT Results should not be used for the evaluation of suspected sexual abuse or for other medico-legal indications. The only legally accepted results are from culture. Results cannot be used to assess therapeutic success or failure since nucleic acids may persist following antimicrobial therapy. Rafael De Luna MD MICROBIOLOGY - GENERAL ORDERABL ES Final Result Performing Organization Address City/[facility]/ZIP Co de Phone Number [facility] CLIA # [id number] [address] [facility] [place], [place] [address] * (ABNORMAL) URINALYSIS MICROSCOPY ONLY (10/14/2024 2:50 PM CDT) WBC UA 6-10(A) 0 - 2 /hpf 10/14/2024 3:11 PM CDT [facility] RBC UA 0-2 0 - 2 /hpf 10/14/2024 3:11 PM CDT [facility] BACTERIA UA 1+(A) Negative /hpf 10/14/2024 3:11 PM CDT [facility] EPITHELIAL CELLS, URINE 6-10(A) 0 - 5 /hpf 10/14/2024 3:11 PM CDT [facility] TRICHOMONAS Present(A ) Absent 10/14/2024 3:11 PM CDT [facility] Urine URINE SPECIMEN OBTAINED BY CLEAN CATCH PROCEDURE / Unknown Collection / Unknown 10/14/2024 2:50 PM CDT 10/14/2024 2:59 PM CDT Rafael D eLuna MD URINE ORDERABLES Final Result [facility] CLIA # [id number] [address] [place] [address] * (ABNORMAL) URINALYSIS WITH REFLEX MICROSCOPIC (10/14/2024 2:50 PM CDT) COLOR UA Pale Yellow Pale to Dark Yellow 10/14/2024 3:11 PM CDT [facility] CLARITY UA Clear Clear 10/14/2024 3:11 PM CDT [facility] SPECIFIC GRAVITY UA 1.010 1.003 - 1.035 10/14/2024 3:11 PM CDT [facility] PH UA 7.0 5.0 - 8.0 10/14/2024 3:11 PM CDT [facility] LEUKOCYTE ESTERASE UA 1+(A) Negative 10/14/2024 3:11 PM CDT [facility] NITRITE UA Negative Negative 10/14/2024 3:11 PM CDT [facility] PROTEIN UA Negative Negative 10/14/2024 3:11 PM CDT [facility] GLUCOSE UA Negative Negative 10/14/2024 3:11 PM CDT [facility] KETONES UA Negative Negative 10/14/2024 3:11 PM CDT [facility] UROBILINOGEN UA 0.2 <2.0 mg/dL 3:11 PM CDT [facility] BILIRUBIN UA Negative Negative 10/14/2024 3:11 PM CDT [facility] BLOOD UA Negative Negative 10/14/2024 3:11 PM CDT [facility] Urine URINE SPECIMEN OBTAINED BY CLEAN CATCH PROCEDURE / Unknown Collection / Unknown 10/14/2024 2:50 PM CDT 10/14/2024 2:59 PM CDT us Rafael De Luna MD URINE ORDERABLES Final Result Performing Organization Address [facility]/ZIP Co de Phone Number [facility] CLIA # [id number] [address] [place] [address] [phone] * URINE CULTURE (10/14/2024 2:50 PM CDT) CULTURE Polymicrobial growth consistent with normal urethral amador and/or colonizing bacteria 10/16/2024 12:38 PM CDT [facility] Urine URINE SPECIMEN OBTAINED BY CLEAN CATCH PROCEDURE / Unknown Collection / Unknown 10/14/2024 2:50 PM CDT 10/14/2024 3:26 PM CDT us Rafael De Luna MD MICROBIOLOGY - GENERAL ORDERABL ES Final Result Performing Organization Address City/[facility]/ZIP Co de Phone Number [facility] CLIA # [id number] [address] [place] [address] [phone] * LACTIC ACID (10/14/2024 2:11 PM CDT) LACTIC ACID 1.3 <=2.0 mmol/L 10/14/2024 2:58 PM CDT [facility] Blood BLOOD SPECIMEN / Unknown Collection / Unknown 10/14/2024 2:11 PM CDT 10/14/2024 2:40 PM CDT us Rafael De Luna MD CHEMISTRY ORDERABLES Final Resu lt [facility] CLIA # [id number] [address] [place] [address] * (ABNORMAL) CBC WITH DIFFERENTIAL (10/14/2024 2:11 PM CDT) WBC 7.8 4.0 - 10.0 K/uL 10/14/2024 2:[address] [facility] RBC 3.94 3.93 - 5.22 M/uL 10/14/2024 2:[address] [facility] HEMOGLOBIN 10.1(L) 11.2 - 15.7 g/dL 10/14/2024 2:[address] [facility] HEMATOCRIT 33.1(L) 34.1 - 44.9 % 10/14/2024 2:[address] [facility] MCV 84.0 79.4 - 94.8 fL 10/14/2024 2:[address] [facility] MCH 25.6 25.6 - 32.2 pg 10/14/2024 2:[address] [facility] MCHC 30.5(L) 32.2 - 35.5 g/dL 10/14/2024 2:[address] [facility] RDW 15.6(H) 11.0 - 14.5 % 10/14/2024 2:[address] [facility] RDW-STDEV 46.9 36.9 - 56.9 fL 10/14/2024 2:[address] [facility] PLATELETS 374(H) 163 - 337 K/uL 10/14/2024 2:[address] [facility] MPV 11.1 10.0 - 14.8 fL 10/14/2024 2:[address] [facility] NEUTROPHILS 51 34 - 71 % 10/14/2024 2:44 PM CDT [facility] LYMPHOCYTES 38 19 - 52 % 10/14/2024 2:44 PM CDT [facility] MONOCYTES 8 5 - 13 % 10/14/2024 2:44 PM CDT [facility] EOSINOPHILS 2 1 - 6 % 10/14/2024 2:44 PM CDT [facility] BASOPHILS 1 0 - 1 % 10/14/2024 2:44 PM CDT [facility] IMMATURE GRANULOCYTES 0 % 10/14/2024 2:44 PM CDT [facility] NEUTROPHIL ABSOLUTE 3.96 1.56 - 6.13 K/uL 10/14/2024 2:44 PM CDT [facility] LYMPHOCYTE ABSOLUTE 2.91 1.20 - 3.40 K/uL 10/14/2024 2:44 PM CDT [facility] MONOCYTE ABSOLUTE 0.62(H) 0.24 - 0.36 K/uL 10/14/2024 2:44 PM CDT [facility] EOSINOPHIL ABSOLUTE 0.16 0.04 - 0.36 K/uL 10/14/2024 2:44 PM CDT [facility] BASOPHILS ABSOLUTE 0.10(H) 0.01 - 0.08 K/uL 10/14/2024 2:44 PM CDT [facility] IMMATURE GRANULOCYTES ABSOLUTE 0.02 K/uL 10/14/2024 2:44 PM CDT [facility] Blood Collection / Unknown 10/14/2024 2:11 PM CDT 10/14/2024 2:40 PM CDT us Rafael De Luna MD HEMATOLOGY ORDERABLES Final Res ult [id number] [address] [place] [address] * (ABNORMAL) PTT (10/14/2024 2:11 PM CDT) PTT 22.2(L) 25.1 - 35.4 seconds 10/14/2024 2:49 PM CDT [facility] Blood Collection / Unknown 10/14/2024 2:11 PM CDT 10/14/2024 2:40 PM CDT us Rafael De Luna MD HEMATOLOGY ORDERABLES Final Res ult Performing Organization Address [facility] Co ar Phone Number [facility] CLIA # [id number] [address] [place] [phone] * SEDIMENTATION RATE (10/14/2024 2:11 PM CDT) ESR (SEDIMENTATION RATE) 11 0 - 20 mm/Hr 10/14/2024 2:53 PM CDT [facility] Blood Collection / Unknown 10/14/2024 2:11 PM CDT 10/14/2024 2:40 PM CDT Narrative [facility] - 10/14/2024 2:53 PM CDT Tube Lot: #[id number] Exp Date: 02/18/2026 QC1 LOT [id number] EXP.02/23/2025 QC2 LOT [id number] EXP.02/23/2025 us Rafael De Luna MD HEMATOLOGY ORDERABLES Final Res ult Performing Organization Address City/[facility] Co de Phone Number [facility] CLIA # [id number] [address] [place] [phone] * PROTIME-INR (10/14/2024 2:11 PM CDT) PROTIME 12.8 12.1 - 14.3 Seconds 10/14/2024 2:49 PM CDT [facility] INR 1.0 0.9 - 1.1 10/14/2024 2:49 PM CDT [facility] Blood Collection / Unknown 10/14/2024 2:11 PM CDT 10/14/2024 2:40 PM CDT us Rafael De Luna MD HEMATOLOGY ORDERABLES Final Res ult Performing Organization Address [facility] Co de Phone Number [facility] CLIA # [id number] [address] [place] [address] * C-REACTIVE PROTEIN (10/14/2024 2:11 PM CDT) CRP <3.0 <5.0 mg/L 10/14/2024 2:5 8 PM CDT [facility] Blood Collection / Unknown 10/14/2024 2:11 PM CDT 10/14/2024 2:40 PM CDT us Rafael De Luna MD CHEMISTRY ORDERABLES Final Resu lt Performing Organization Address [facility] Phone Number [facility] CLIA # [id number] [address] [place] [address] * MAGNESIUM LEVEL (10/14/2024 2:11 PM CDT) MAGNESIUM 2.1 1.6 - 2.6 mg/dL 10/14/2024 2:58 PM CDT [facility] Blood Collection / Unknown 10/14/2024 2:11 PM CDT 10/14/2024 2:40 PM CDT us Rafael De Luna MD CHEMISTRY ORDERABLES Final Resu lt Performing Organization Address [facility] Co de Phone Number [facility] CLIA # [id number] [address] [place] [phone] * (ABNORMAL) LIPASE (10/14/2024 2:11 PM CDT) LIPASE 70(H) 13 - 60 U/L 10/14/2024 2:58 PM CDT [facility] Blood Collection / Unknown 10/14/2024 2:11 PM CDT 10/14/2024 2:40 PM CDT us Rafael De Luna MD CHEMISTRY ORDERABLES Final Resu lt [facility] CLIA # [id number] [address] [place] [address] * (ABNORMAL) COMPREHENSIVE METABOLIC PANEL (10/14/2024 2:11 PM CDT) SODIUM 139 136 - 145 mmol/L 10/14/2024 2:58 PM CDT [facility] POTASSIUM 4.4 3.5 - 5.1 mmol/L 10/14/2024 2:58 PM T [facility] CHLORIDE 105 98 - 107 mmol/L 10/14/2024 2:[address] [facility] CO2 23 22 - 29 mmol/L 10/14/2024 2:[address] [facility] CALCIUM 9.6 8.6 - 10.0 mg/dL 10/14/2024 2:[address] [facility] BUN 16 6 - 20 mg/dL 10/14/2024 2:[address] [facility] CREATININE 0.76 0.51 - 0.95 mg/dL 10/14/2024 2:[address] [facility] GLUCOSE 80 74 - 99 mg/dL 10/14/2024 2:[address] [facility] TOTAL PROTEIN 7.4 6.6 - 8.7 g/dL 10/14/2024 2:[address] [facility] ALBUMIN 4.4 3.5 - 5.2 g/dL 10/14/2024 2:[address] [facility] BILIRUBIN TOTAL 0.4 0.0 - 1.2 mg/dL 10/14/2024 2:[address] [facility] ALKALINE PHOSPHATASE 117(H) 35 - 104 U/L 10/14/2024 2:[address] [facility] AST 28 0 - 35 U/L 10/14/2024 2:[address] [facility] ALT 23 0 - 35 U/L 10/14/2024 2:58 PM CDT [facility] GFR >60 >=60 mL/min/1.7 3 sq meter 10/14/2024 2:58 PM CDT [facility] Comment:eGFR calculated with 2020 CKD-EPI equation. Vegetarian diet, extremely high or low muscle mass, and may affect results. Cystatin C with Glomerular Filtration Rate is a suitable alternative for these patients. ANION GAP 11 5 - 20 mmol/L 10/14/2024 2:58 PM CDT [facility] Blood Collection / Unknown 10/14/2024 2:11 PM CDT 10/14/2024 2:40 PM CDT us Rafael De Luna MD CHEMISTRY ORDERABLES Final Resu lt [facility] CLIA # [id number] [address] [place] [phone] from Last [address] [place] [address] [employer]ICAID Care Teams Science Job Titles Relationship Specialty Start Date End Date Joaquin Mak MD [address] [place] [address] PCP - General Family Practice 12/29/19
--- OUTSIDE RECORDS SUMMARY | 2024-10-28 10:28 | XMS_ITS | Encounter Summary ---
Author Organization [facility] Address 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 Phone Joaquin Mak MD Primary Care Provider [phone] Encounter Details Date Type Department Care Team (Late st Contact Info) Description 10/16/2024 Results Follow-Up [facility] Emergency Medicine [address] [place] [address] Pastora Chamberlain RN GC/CHLAMYDIA, UROGENITAL, URINE CULTURE Social History Tobacco Use Types Packs/Day Years Used Date Smoking Tobacco: Former Cigarettes Q uit: 02/19/2018 Passive Smoke Exposure: Current Smokeless Tobacco: Never Alcohol Use Standard Drinks/Week Comments Not Currently 0 (1 standard drink = 0.6 oz pur e alcohol) [facility] Utilities Answer Date Recorded In the past 12 months has e [employer], gas, oil, or water [employer] threatened to shut off services in your [...] week 05/17/2023 How often do you attend sabianism or orthodox serv ices? 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
[2024-10-28 10:29] VITALS: BP 112/75; BP 118/77; BP 98/75; PULSE 72; PULSE 73
--- NOTE | 2024-10-28 10:30 | XR_ITS ---
WS: [id number] Portable AP upright chest, 10/28/2024 Clinical Data: dyspnea/cough Comparison: Portable chest, 10/04/2024 Findings: No nodules, masses or effusions are seen. The heart is normal. The pulmonary vascularity is not increased. No pneumonia or pneumothorax is seen. The patient's clothing obscures minimal detail. XR/XR chest 1V portable [id number] Impression: Negative chest.
[2024-10-28 10:43] LABS: Hematocrit 35.5 % (36-47); Hemoglobin 10.20 g/dL (11.27-16.99); Mean Corpuscular HGB Conc 28.7 g/dL (30-55); Mean Corpuscular Hemoglobin 25.0 pg (27-33); Mean Corpuscular Volume 87.0 fl (85-98); Nucleated Red Blood Cells % 0 %; Platelet Count 375 10^3/cmm (157-399); Red Blood Count 4.08 10^6/uL (3.85-5.65); White Blood Count 5.67 10^3/uL (3.29-11.43)
[2024-10-28 10:52] VITALS: BP 112/75; PULSE 74; O2SAT 100
[2024-10-28 10:58] LABS: Glucose Urine UA Negative (Normal); Nitrate Urine Negative (Negative); Specific Gravity, Urine 1.018 (1.005-1.030)
[2024-10-28 11:01] LABS: Alanine Aminotransferase 9 U/L (0-33); Albumin Level 4.1 g/dL (3.5-5.2); Alkaline Phosphatase 77 U/L (35-105); Anion Gap 10.0 (5-19); Aspartate Amino Transferase 15 U/L (0-32); Blood Urea Nitrogen 23 mg/dL (6-20); Calcium 9.2 mg/dL (8.5-10.5); Carbon Dioxide 21 mmol/L (22-29); Chloride 112 mmol/L (98-107); Creatinine Clr Calc Pharmacy 71.8449; Globulin 3.1 g/dL (1.3-4.6); Glucose 73 mg/dL (65-115); Osmolality Calculated 290 mOsm/kg (285-295); Potassium 4.0 mmol/L (3.5-5.1); Sodium 139 mmol/L (136-145); Total Protein 7.2 g/dL (6.6-8.7)
[2024-10-28 11:04] LABS: Add Urine Microscopic? YES
[2024-10-28 11:30] VITALS: BP 107/75; PULSE 71; O2SAT 100
[2024-10-28] MEDS: lidocaine 2% viscous 15 ML, aluminum-mag hydrox-simethicon 30 ML, sucralfate oral liq 1 GM PO (11:51)
[2024-10-28 12:28] VITALS: BP 100/64; PULSE 71; O2SAT 100
== END 2024-10-28 12:30 | disposition home or self-care (01) ==
PROVIDERS: Emergency Provider Family Medicine; PCP Family Medicine
DX: R10.9 Unspecified abdominal pain (principal); K21.9 Gastro-esophageal reflux disease without esophagitis; Z79.01 Long term (current) use of anticoagulants
CPT/HCPCS: 36415; 71045; 80053; 81001; 85025; 86140; 93005; 99285; J7030; J9999

== ENCOUNTER 2024-11-13 06:33 | Day surgery (SDC) | payer MEDICAID, SELFPAY ==
[2024-11-13 06:46] VITALS: BP 97/77; PULSE 66; RESP 18; TEMP 36.6; O2SAT 100; BMI 23.2
--- NOTE | 2024-11-13 07:01 | W.PM.OPSUD ---
Surgery/Procedure H&P Update DATE OF PROCEDURE: November 13, 2024 DATE H&P PERFORMED: 11/04/24 H&P UPDATE INFORMATION: I have reviewed H&P completed within last 30 days, I have examined patient prior to procedure, No changes to prior documentation, H&P is in [facility] EMR on date indicated and Risks and benefits of the procedure reviewed PLANNED PROCEDURE: Operation Date: 11/13/24 07:40 Proposed Procedures p EGD EGD with Biopsy [id number] K27.9(Not Applicable) - Boris Roche MD
--- NOTE | 2024-11-13 07:04 | P.ANESASSM_ITS ---
Pre-Anesthetic Assessment Height/Weight: Height 1.5 m Weight 52.163 kg Temp Pulse Resp BP Pulse Ox O2 Del Method 97.9 F 66 18 97/77 100 Room Air 11/13/24 06:46 11/13/24 06:46 11/13/24 06:46 11/13/24 06:46 11/13/24 06:46 11/13/24 06:46 Preop Diagnosis: abd pain Operation Date: 11/13/24 07:40 Proposed Procedures p EGD EGD with Biopsy 10827 K27.9(Not Applicable) - Boris Roche MD Was Beta Omar taken within 24 hours: Yes Was Clonidine taken within 24 hours: N/A Last intake: Intake Last Liquid Date 11/12/24 Last Liquid Time 21:00 Last Solid Date 11/12/24 Last Solid Time 17:00 Social No alcohol and No tobacco Exam oriented x 3 abd pain Airway Submandibular: within normal limits Cervical ROM: within normal limits Mallampati: Class I Dentition: full History/ROS No significant history except as noted Pulmonary None reported CV/HEM Arrythmia svt None reported Hepatic None reported GI None reported Metabolic None reported Musc/skel None reported Neuropsych Seizure Anesthetic Plan ASA status: 3 Anesthesia: MAC Risk of > 500 ml blood loss (7ml/kg in children): No Medications/Allergies Home Medications ?Medication ?Instructions ?Recorded ?Confirmed ?Last Taken ?Type alprazolam 0.25 mg tablet 0.25 mg PO TID PRN Anxiety 0 08/06/23 11/13/24 11/13/24 History topiramate 200 mg tablet 200 mg PO BID 02/21/2411/1311/13/24 History hydrocodone 5 mg-acetaminophen 325 1 tab PO Q6H PRN pa in #30 tabs 07/16/24 11/13/24 11/13/24 Rx mg tablet gabapentin 300 mg capsule 300 mg PO QID 30 days #120 c aps 09/09/24 11/13/24 11/13/24 Rx ondansetron 4 mg disintegrating 4 mg PO TID PRN Nausea And 09/14/24 11/13/24 Unknown Rx tablet Vomiting #14 tabs promethazine 25 mg rectal 25 mg UT Q6H PRN nausea and 09/26/24 11/13/24 Unknown Rx suppository vomiting #12 ea ondansetron 8 mg disintegrating 8 mg PO Q6H #14 tabs 0 10/05/24 11/13/24 11/13/24 Rx tablet pantoprazole 40 mg tablet,delayed 40 mg PO DAILY #40 t abs 10/28/24 11/13/24 11/13/24 Rx release (Protonix) glecaprevir 100 mg-pibrentasvir 40 3 tab PO DAILY 10/2111/13/24 11/12/24 History mg tablet (Mavyret) loratadine 10 mg tablet 10 mg PO DAILY 11/10/2410/2111/12/24 History metoprolol tartrate 25 mg tablet 25 mg PO BID 11/10/24 11/13/24 11/13/24 History Allergies Allergy/AdvReac Type Severity Reaction Status Date / Time methylprednisolone Allergy Severe ALGY-Anaphy Verified 11/13/24 06:42 laxis Latex, Natural Rubber Allergy Intermediate rash, hives Verified 11/13/24 06:42 amoxicillin Allergy ALGY-Hives Verified 11/13/24 06:42 cefdinir Allergy Unknown Verified 11/13/24 06:42 methotrexate AdvReac Intermediate migraines, Verified 11/13/24 06:42 N/V Current Medications Generic Name Dose Route Start Last Admin Trade Name Freq PRN Reason Stop Dose Admin Sodium Chloride 1,000 mls @ 15 mls/hr 11/13/24 06:37 11/13/24 06:53 Sodium Chloride 0.9% IV 11/14/24 06:36 15 mls/hr .Q24H PRN Administration COLONOSCOPY FLUIDS PFSH Anesthesia Medical History (Updated 11/05/24 @ 00:00 by TRAN Cerrato) Bipolar disorder, unspecified Family history of colon cancer Bilateral pulmonary embolism Vapes nicotine containing substance Seizures Hx of migraines Ovarian mass, right Family history of psoriasis in father High risk medication use Inflammatory back pain Inflammatory arthritis Psychiatric care 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 Mosher at [facility] History of tubal ligation 12/2015- per Dr. Mosher at [facility] H/O removal of cyst [address] Mosher Family History Mother Stroke Hyperlipidemia Family history of thyroid problem Hypertension Cancer of tongue Father Degenerative disc disease Diabetes Unknown Breast cancer maternal great aunt Grandmother Ovarian cancer maternal Uterine cancer maternal Other Cancer Chronic kidney disease (CKD) Rheumatoid arthritis Denies family history of Lupus Social History Smoking and tobacco/nicotine status: never used tobacco/nicotine Second hand smoke exposure: No Alcohol intake: never Substance/Drug Use: never Data Anesthesia Cardiac Studies: Echocardiogram 08/04/23
[2024-11-13 07:48] VITALS: BP 91/55; PULSE 60; RESP 16; TEMP 36.1; O2SAT 100
[2024-11-13 07:58] VITALS: BP 91/48; PULSE 62; RESP 16; O2SAT 100
[2024-11-13 08:13] VITALS: BP 95/69; PULSE 69; RESP 18; O2SAT 100
--- NOTE | 2024-11-13 08:30 | ANE.PACU2 ---
Inpatient post-anesthesia follow up: Airway intact: Yes Vital signs: Temperature 97 F Pulse Rate 69 Respiratory Rate 18 Blood Pressure 95/69 Pulse Oximetry 100 Oxygen Delivery Me thod Room Air Oxygen Flow Rate 8 Fraction of Inspir ed Oxygen Hydration adequate: Yes Nausea and vomiting: No Pain level: 1 Mental status: Baseline
== END 2024-11-13 08:32 | disposition home or self-care (01) ==
PROVIDERS: PCP Family Medicine; Visit Provider Surgery
PROC: 0DJ08ZZ Inspection of Upper Intestinal Tract, Via Natural or Artificial Opening Endoscopic (ICD-10-PCS; principal; 2024-11-13 07:40)
DX: R10.9 Unspecified abdominal pain (principal); R11.2 Nausea with vomiting, unspecified; K21.9 Gastro-esophageal reflux disease without esophagitis; K29.70 Gastritis, unspecified, without bleeding; F31.9 Bipolar disorder, unspecified; F17.290 Nicotine dependence, other tobacco product, uncomplicated; R56.9 Unspecified convulsions; Z79.899 Other long term (current) drug therapy; F41.9 Anxiety disorder, unspecified
CPT/HCPCS: 43239; 88305; J2250; J2704; J7030; J9999

== ENCOUNTER 2024-12-08 11:55 | Emergency (ER) | payer MEDICAID, SELFPAY ==
[2024-12-08 12:09] VITALS: BP 115/85; PULSE 107; RESP 16; TEMP 36.8; O2SAT 100; BMI 23.2
[2024-12-08 12:18] LABS: Glucose Urine UA Negative (Normal); Nitrate Urine Negative (Negative); Specific Gravity, Urine 1.012 (1.005-1.030)
[2024-12-08 12:46] LABS: Add Urine Microscopic? YES
[2024-12-08 14:41] LABS: Hematocrit 39.3 % (36-47); Hemoglobin 12.00 g/dL (11.27-16.99); Mean Corpuscular HGB Conc 30.5 g/dL (30-55); Mean Corpuscular Hemoglobin 25.2 pg (27-33); Mean Corpuscular Volume 82.4 fl (85-98); Nucleated Red Blood Cells % 0 %; Platelet Count 401 10^3/cmm (157-399); Red Blood Count 4.77 10^6/uL (3.85-5.65); White Blood Count 7.97 10^3/uL (3.29-11.43)
[2024-12-08 14:55] LABS: Alanine Aminotransferase 88 U/L (0-33); Albumin Level 4.6 g/dL (3.5-5.2); Alkaline Phosphatase 277 U/L (35-105); Anion Gap 18.9 (5-19); Aspartate Amino Transferase 45 U/L (0-32); Blood Urea Nitrogen 12 mg/dL (6-20); Calcium 9.6 mg/dL (8.5-10.5); Carbon Dioxide 18 mmol/L (22-29); Chloride 105 mmol/L (98-107); Creatinine Clr Calc Pharmacy 80.8255; Globulin 3.4 g/dL (1.3-4.6); Glucose 82 mg/dL (65-115); Lipase 32 U/L (13-60); Osmolality Calculated 285 mOsm/kg (285-295); Potassium 3.9 mmol/L (3.5-5.1); Sodium 138 mmol/L (136-145); Total Protein 8.0 g/dL (6.6-8.7)
[2024-12-08 14:56] LABS: Lactic Sepsis W/Reflex 1.5 mmol/L (0.5-2.2)
--- NOTE | 2024-12-08 15:15 | CTR_ITS ---
PROCEDURE INFORMATION: Exam: CT Abdomen And Pelvis With Contrast Exam date and time: 12/08/2024 3:34 PM Age: 34 years old Clinical indication: Abdominal pain; Localized; Left lower quadrant (llq); Prior surgery; Surgery date: 6+ months; Surgery type: Gb, partial hysterectomy; Additional info: Severe llq pain, HX of pyelo TECHNIQUE: Imaging protocol: Computed tomography of the abdomen and pelvis with contrast. Radiation optimization: All CT scans at this facility use at least one of these dose optimization techniques: automated exposure control; mA and/or kV adjustment per patient size (includes targeted exams where dose is matched to clinical indication); or iterative reconstruction. Contrast material: OMNIPAQUE 350; Contrast volume: 100 ml; Contrast route: INTRAVENOUS (IV); COMPARISON: CT abdomen pelvis w con* [id number] 09/14/2024 12:02 AM RADIATION DOSE METRICS: Total DLP (mGy-cm): 314.43 FINDINGS: Lungs: Lung bases are unremarkable. Liver: The liver is unremarkable. Gallbladder and biliary ducts: Post cholecystectomy. Pancreas: Pancreas is unremarkable. No ductal dilation or peripancreatic inflammation. Spleen: The spleen is unremarkable. Adrenal glands: Adrenal glands are unremarkable. Kidneys and ureters: No hydronephrosis, hydroureter or nephrolithiasis. Stomach and bowel: Stomach is not distended. Small and large bowel are normal in caliber without evidence of obstruction. Extensive amount of feces in the entire colon. Gaseous distension of the rectosigmoid junction. Appendix: No evidence of appendicitis. Intraperitoneal space: No free intraperitoneal air. No significant fluid collection. Vasculature: There is no aortic aneurysm. Origins of the celiac, SMA, KIRSTIN and renal arteries are patent. Lymph nodes: No pathologically enlarged lymph nodes (by short axis size criteria). Urinary bladder: Bladder is not fully distended.There has been a hysterectomy. Reproductive: No adnexal cysts or masses are identified. Bones/joints: No acute osseous abnormality. Soft tissues: There is a small fat containing umbilical hernia. CT/CT abdomen pelvis w con* [id number] IMPRESSION: No acute findings.
[2024-12-08 15:36] VITALS: BP 116/80
[2024-12-08] MEDS: iohexol 350 mg/mL 500 mL Btl (per mL) IV (15:40)
[2024-12-08 15:46] VITALS: RESP 16
[2024-12-08] MEDS: ondansetron 2 mg/ML SDV 2 mL 4 MG IVP (15:46)
[2024-12-08] MEDS: morphine 4 mg/mL SDV 1 mL IVP (15:46)
[2024-12-08 16:07] VITALS: BP 117/79; O2SAT 100
[2024-12-08] MEDS: cefTRIAXone 1,000 mg SDV 1000 MG IVP (16:35)
[2024-12-08 16:36] VITALS: BP 106/73; PULSE 91; RESP 16; O2SAT 98
--- NOTE | 2024-12-08 18:14 | ED_ITS ---
HPI - Abdominal Pain 2 General: Chief Complaint: Abdominal Pain Stated Complaint: L side pain, nausea Time Seen by Provider: 12/08/24 14:50 Source: patient Mode of arrival: ambulatory Limitations: no limitations History of Present Illness: Patient is a 34-year-old female who presents the emergency department planing of left lower quadrant abdominal pain and nausea for the past day or so. Notes history of similar, and she has history of ovarian cyst rupture. However states that she has had a full hysterectomy since. No vomiting or diarrhea. No urinary symptoms, she does have a history of pyelonephritis however. No fevers at home. Reporting severe pain at this time. Nontoxic-appearing overall, afebrile. No vaginal bleeding or discharge. MD elicited complaint: abdominal pain Pertinent past history: past UTI Onset (ago): day(s) Pain Consistency: constant Location: LLQ Severity: similar to previous episodes Associated Symptoms: Reports nausea; Denies bloating, change in stool character, chills, constipation, diarrhea, dysuria, fever(s), hematochezia and vomiting Related Data Home Medications ?Medication ?Instructions ?Recorded ?Confirmed alprazolam 0.25 mg tablet 0.25 mg PO TID PRN Anxiety 0 08/06/23 12/03/24 topiramate 200 mg tablet 200 mg PO BID 02/21/2412/03 glecaprevir 100 mg-pibrentasvir 40 3 tab PO DAILY 10/2112/03/24 mg tablet (Mavyret) loratadine 10 mg tablet 10 mg PO DAILY 11/10/2411/19 metoprolol tartrate 25 mg tablet 25 mg PO BID 11/10/24 12/03/24 Previous Rx's ?Medication ?Instructions ?Recorded hydrocodone 5 mg-acetaminophen 325 1 tab PO Q6H PRN pa in #30 tabs 07/16/24 mg tablet gabapentin 300 mg capsule 300 mg PO QID 30 days #120 c aps 09/09/24 ondansetron 4 mg disintegrating 4 mg PO TID PRN Nausea And 09/14/24 tablet Vomiting #14 tabs promethazine 25 mg rectal 25 mg TN Q6H PRN nausea and 09/26/24 suppository vomiting #12 ea ondansetron 8 mg disintegrating 8 mg PO Q6H #14 tabs 0 10/05/24 tablet pantoprazole 40 mg tablet,delayed 40 mg PO DAILY #40 t abs 10/28/24 release (Protonix) ciprofloxacin HCl 500 mg tablet 500 mg PO BID 7 days # 14 tabs 12/08/24 (Cipro) ondansetron 4 mg disintegrating 4 mg PO TID PRN nausea and 12/08/24 tablet vomiting #30 tabs Allergies Allergy/AdvReac Type Severity Reaction Status Date / Time methylprednisolone Allergy Severe ALGY-Anaphy Verified 12/03/24 15:24 laxis Latex, Natural Rubber Allergy Intermediate rash, hives Verified 12/03/24 15:24 amoxicillin Allergy ALGY-Hives Verified 12/03/24 15:24 cefdinir Allergy Unknown Verified 12/03/24 15:24 methotrexate AdvReac Intermediate migraines, Verified 12/03/24 15:24 N/V Review of Systems 2 General: Reports: 10 or more systems reviewed and unremarkable except in HPI and below Const: Denies: fever(s), chills, change in appetite, change in weight or diaphoresis ENMT: Denies: throat pain or hoarseness Card: Denies: chest pain, palpitations or lightheadedness Resp: Denies: dyspnea, productive cough or wheezing GI: Reports: abdominal pain and nausea; Denies: vomiting, diarrhea, constipation, bloating, change in stool character or hematochezia : Denies: flank pain, difficulty voiding, dysuria, urinary frequency or urinary urgency Musc: Denies: neck pain or back pain Skin/Breast: Denies: rash or new lesions Neuro: Denies: headache(s) or dizziness PFSH ED 2 PFSH: Medical History Bipolar disorder, unspecified Family history of colon cancer Bilateral pulmonary embolism Vapes nicotine containing substance Seizures Hx of migraines Ovarian mass, right Family history of psoriasis in father High risk medication use Inflammatory back pain Inflammatory arthritis Psychiatric care Other care home (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 Mosher at [facility] History of tubal ligation 12/2015- per Dr. Mosher at [facility] H/O removal of cyst [address] Mosher Family History Mother Stroke Hyperlipidemia Family history of thyroid problem Hypertension Cancer of tongue Father Degenerative disc disease Diabetes Unknown Breast cancer maternal great aunt Grandmother Ovarian cancer maternal Uterine cancer maternal Other Cancer Chronic kidney disease (CKD) Rheumatoid arthritis Denies family history of Lupus Social History Smoking and tobacco/nicotine status: never used tobacco/nicotine Second hand smoke exposure: No Alcohol intake: never Substance/Drug Use: never Physical Exam 2 Const: COMMON NORMALS: no acute distress, average body habitus, patient oriented x3, no limitations, healthy appearing, alert and well nourished G ENERAL APPEARANCE: cooperative and comfortable ORIENTATION/CONSCIOUSNESS: Yes awake OTHER: nontoxic Neck/C-Spine: COMMON NORMALS: full ROM, supple and no meningeal signs Resp: COMMON NORMALS: normal respiratory effort, No retractions, No use of accessory muscles and clear to auscultation bilaterally AUSCULTATION: clear to auscultation bilaterally, no crackles, no rales, no rhonchi and no wheezes Cardio: COMMON NORMALS: regular rate, regular rhythm, No gallops present (Cardio), No clicks present (Cardio), No murmurs present (Cardio), No rub (Cardio) and Peripheral pulses 2+ throughout RATE: regular rate RHYTHM: r egular rhythm PERIPHERAL PULSES: Peripheral pulses 2+ throughout GI: COMMON NORMALS: Normal to inspection, nondistended, normoactive bowel sounds present, Soft to palpation, No hepatosplenomegaly present and no masses AUSCULTATION: Yes normoactive bowel sounds PALPATION: Yes Soft to palpation, Yes Tenderness to palpation present (GI) Details: LLQ (Mild), No Guarding due to palpation present (GI), No Rigid due to palpation and Yes No hepatosplenomegaly present RECTAL EXAM: deferred : COMMON NORMALS: Yes no CVA tenderness BLADDER/KIDNEY EXAM: Yes no CVA tenderness Back/Pelvis: COMMON NORMALS: no CVA tenderness Extremity: COMMON NORMALS: normal to inspection and full ROM Neuro: COMMON NORMALS: patient oriented x3, moves all extremities, no focal motor deficits and no sensory deficits noted SENSORIUM/ORIENTATION: Yes alert MENINGEAL SIGNS: Yes no meningeal signs Psych: COMMON NORMALS: mental status grossly normal, cooperative and speech normal SPEECH: Yes normal speech Skin: COMMON NORMALS: no rashes or lesions noted GENERAL SKIN EXAM: no rashes or lesions noted Course 2 Vital Signs: Vital signs: Vital Signs Temperature 98.3 F 12/08/24 12:09 Pulse Rate 91 12/08/24 16:36 Respiratory Rate 16 12/08/24 16:36 Blood Pressure 106/73 12/08/24 16:36 Pulse Oximetry 98 12/08/24 16:36 Oxygen Delivery Me thod Room Air 12/08/24 16:07 MDM - Abdominal Pain Medical Decision Making On exam mild tender to left lower quadrant, history of urinary tract infection and pyelonephritis in the past. She is nontoxic, afebrile. No chills or fevers reported at home. Lab work is all unremarkable aside from urinalysis showing evidence of UTI. CT does not show any pyelonephritis or other abnormalities. Will treat for uncomplicated urinary tract infection at home, nausea medicine sent to the pharmacy as well. Ceftriaxone was given here in the ED. Lab Data 12/08/24 14:28 12/08/24 14:28 Labs/Radiology: Radiology Impressions Abdomen/Pelvis CT 12/08/24 15:15 IMPRESSION: No acute findings. Laboratory Results WBC 7.97 10^3/uL (3.29-11.43) 12/08/24 14:28 RBC 4.77 10^6/uL (3.85-5.65) 12/08/24 14:28 Hgb 12.00 g/dL (11.27-16.99) 12/08/24 14:28 Hct 39.3 % (36-47) 12/08/24 14:28 MCV 82.4 fl (85-98) L 12/08/24 14:28 MCH 25.2 pg (27-33) L 12/08/24 14:28 MCHC 30.5 g/dL (30-55) 12/08/24 14: RDW 18.7 % (12.1-15.1) H 12/08/24 14: Plt Count 401 10^3/cmm (157-399) H 12/08/24 14: MPV 10.6 fL (7.4-10.4) H 12/08/24 14: Neut % (Auto) 62.6 % 12/08/24 14: Lymph % (Auto) 30.1 % 12/08/24 14:28 [place] % (Auto) 4.6 % 12/08/24 14: Eos % (Auto) 1.5 % 12/08/24 14: Baso % (Auto) 1.1 % 12/08/24 14: Neut # (Auto) 4.98 10^3/uL (1.8-7.7) 12/08/24 14: Lymph # (Auto) 2.4 10^3/uL (0.8-4.8) 12/08/24 14: [place] # (Auto) 0.4 10^3/uL (0.2-0.9) 12/08/24 14: Eos # (Auto) 0.1 10^3/uL (0.0-0.8) 12/08/24 14: Baso # (Auto) 0.1 10^3/uL (0.0-0.1) 12/08/24 14: Nucleated RBC % (auto) 0 % 12/08/24 14: Nucleated RBCs # 0.0 /100WBC 12/08/24 14: Sodium 138 mmol/L (136-145) 12/08/24 14: Potassium 3.9 mmol/L (3.5-5.1) 12/08/24 14: Chloride 105 mmol/L (98-107) 12/08/24 14: Carbon Dioxide 18 mmol/L (22-29) L 12/08/24 14:28 Anion Gap 18.9 (5-19) 12/08/24 14:28 BUN 12 mg/dL (6-20) 12/08/24 14: Creatinine 0.8 mg/dL (0.5-0.9) 12/08/24 14: GFR Calculation 81.6 mL/min (90-130) L 12/08/24 14:28 Glucose 82 mg/dL (65-115) 12/08/24 14:28 Calculated Osmolality 285 mOsm/kg (285-295) 12/08/24 14: Lactic Acid 1.5 mmol/L (0.5-2.2) 12/08/24 14:28 Calcium 9.6 mg/dL (8.5-10.5) 12/08/24 14: Total Bilirubin 0.3 mg/dL (0.15-1.2) 12/08/24 14:28 AST 45 U/L (0-32) H 12/08/24 14: ALT 88 U/L (0-33) H 12/08/24 14: Alkaline Phosphatase 277 U/L (35-105) H 12/08/24 14:28 C-Reactive Protein 3.0 mg/L (0.0-4.9) 12/08/24 14:28 Total Protein 8.0 g/dL (6.6-8.7) 12/08/24 14:28 Albumin 4.6 g/dL (3.5-5.2) 12/08/24 14:28 Globulin 3.4 g/dL (1.3-4.6) 12/08/24 14: Lipase 32 U/L (13-60) 12/08/24 14:28 Urine Color Yellow (Yellow) 12/08/24 12:13 Urine Appearance Turbid (CLEAR) A 12/08/24 12:13 Urine pH 5.5 (5-7) 12/08/24 12:13 Ur Specific [place] 1.012 (1.005-1.030) 12/08/24 12:13 Urine Protein Negative (Negative) 12/08/24 12:13 Urine Glucose (UA) Negative (Normal) 12/08/24 12:13 Urine Ketones 1+ (Negative) H 12/08/24 12:13 Urine Blood Non-haemolysed trace (Negative) 12/08/24 12:13 Urine Nitrate Negative (Negative) 12/08/24 12:13 Urine Bilirubin Negative (Negative) 12/08/24 12:13 Urine Urobilinogen 0.2 mg/dL (Negative) 12/08/24 12:13 Ur Leukocyte Esterase 3+ (Negative) A 12/08/24 12:13 Urine RBC 5-10 /hpf (0-2) H 12/08/24 12:13 Urine WBC >100 /hpf (0-5) H 12/08/24 12:13 Ur Squamous Epith Cells 10-15 /hpf (0-5) H 12/08/24 12:13 Ur Transition Epith Cell 0-4 /hpf 12/08/24 12:13 Amorphous Sediment Not Reportable 12/08/24 12:13 Urine Bacteria 1+ /hpf (NONE) H 12/08/24 12:13 Urine Mucus Trace /hpf 12/08/24 12:13 Urine Trichomonas 2+ /hpf H 12/08/24 12:13 All radiology interpretation(s) finalized by discharge Discharge Plan Discharge Patient Disposition: Home Clinical Impression: Urinary tract infection Condition: Stable Prescriptions: New ciprofloxacin HCl [Cipro] 500 mg tablet 500 mg PO BID 7 Days Qty: 14 0RF ondansetron 4 mg tablet,disintegrating 4 mg PO TID PRN (Reason: nausea and vomiting) Qty: 30 0RF No Action topiramate 200 mg tablet 200 mg PO BID hydrocodone-acetaminophen 5-325 mg tablet 1 tab PO Q6H PRN (Reason: pain) Qty: 30 0RF gabapentin 300 mg capsule 300 mg PO QID 30 Days Qty: 120 3RF ondansetron 4 mg tablet,disintegrating 4 mg PO TID PRN (Reason: Nausea And Vomiting) Qty: 14 0RF promethazine 25 mg suppository 25 mg TN Q6H PRN (Reason: nausea and vomiting) Qty: 12 0RF pantoprazole [Protonix] 40 mg tablet,delayed release (DR/EC) 40 mg PO DAILY Qty: 40 0RF Rx Instructions: 1 p.o. twice daily x 10 days and 1 p.o. daily alprazolam 0.25 mg tablet 0.25 mg PO TID PRN (Reason: Anxiety) ondansetron 8 mg tablet,disintegrating 8 mg PO Q6H Qty: 14 0RF Rx Instructions: Take 1/2-1 tab every 6 hours as needed for nausea and vomiting loratadine 10 mg tablet 10 mg PO DAILY metoprolol tartrate 25 mg tablet 25 mg PO BID Mavyret 100-40 mg tablet 3 tab PO DAILY Discharge Orders: Discharge ED (Routine); Ordered 12/08/24 Ordered By: Boris Victor Referrals: Joaquin Mak MD [Primary Care Provider, Family Practice] Patient Instructions: Patient Portal & Ben Instructions Activity Restrictions/Additional Instructions: UTI Discharge Instructions You have been diagnosed with a urinary tract infection (UTI). You will be taking ciprofloxacin 500 mg by mouth twice daily for 7 days. This antibiotic is chosen because of your history of kidney infection (pyelonephritis), even though your current tests show no evidence of kidney involvement. How to take your medication: - Take ciprofloxacin exactly as prescribed: 500 mg every 12 hours (morning and evening) for 7 days. - Finish the entire course, even if you start feeling better before it is done. - Take with a full glass of water. You may take it with or without food, but avoid dairy products and calcium-fortified juices close to the time you take the medication, as they can affect absorption. Possible side effects and when to seek help: - Stop ciprofloxacin and contact your healthcare provider immediately if you experience pain, swelling, or inflammation in your tendons (especially in the ankle, shoulder, or hand), numbness, tingling, weakness, confusion, or severe headaches. - Other possible side effects include nausea, diarrhea, rash, or dizziness. If you develop severe diarrhea, especially with blood, call your provider. - Avoid strenuous exercise during treatment, as ciprofloxacin can increase the risk of tendon injury. - If you have a history of seizures, heart rhythm problems, or are taking medications that affect your heart rhythm, notify your provider before starting ciprofloxacin. Precautions: - Do not take antacids, multivitamins, or supplements containing iron or zinc within 2 hours before or after taking ciprofloxacin, as these can reduce its effectiveness. - Protect your skin from sunlight, as ciprofloxacin can make you more sensitive to sunburn. Follow-up and warning signs: - If your symptoms (painful urination, urgency, frequency, fever, or back pain) do not improve within 2-3 days, or if they worsen, contact your healthcare provider. - Seek medical attention if you develop fever, chills, severe back pain, vomiting, or confusion. General advice: - Drink plenty of fluids unless otherwise instructed. - Practice good hygiene to prevent future UTIs. Contact your healthcare provider if you have any questions or concerns about your medication or symptoms. Thank you for following these instructions to help ensure a safe and effective recovery. Print Language: [place]ican Coding Level of Care Code ED Bible Reader for Mark Berg
== END 2024-12-08 17:49 | disposition home or self-care (01) ==
PROVIDERS: Emergency Medicine; Emergency Provider Physician Assistant; PCP Family Medicine
DX: N39.0 Urinary tract infection, site not specified (principal)
CPT/HCPCS: 36415; 74177; 80053; 81001; 83605; 83690; 85025; 86140; 87040; 87086; 96374; 96375; 99285; J0696; J2270; J2405

== ENCOUNTER 2025-01-11 21:08 | Emergency (ER) | payer MEDICAID, SELFPAY ==
--- OUTSIDE RECORDS SUMMARY | 2023-07-18 03:00 | XMS_ITS ---
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 * Electronic signature of Prov ider Migration on 01/11/2025 at 09:14 PM HOME THEATRE TECHNICIAN Sign off status: Pending * Provider: Yoli madrigal Migration Date: 0 07/18/2023 Generated for Kiera piña/Yashira/Georgesmitting on: 1 03/13/2024 09:14 PM HOME THEATRE TECHNICIAN
--- OUTSIDE RECORDS SUMMARY | 2023-12-15 03:00 | XMS_ITS ---
Author Organization [facility] Address [address] [place] [address] Care Team Providers Care Healthcare Analyst Name Role Phone ObdulioJoaquin Primary Care Provider Unavailabl e Dannie Bui JR Unavailable [phone] Migration, Provider Unavailable Unavailable REASON FOR VISIT EMR-Ell[facility] Encounters Encounter Location Date Provider Diagnosis Migrated_Facility 0 0 12/15/2023 Provider Migration Plan Of Treatment Medication Medication Name Sig Start Date Stop Date Notes Acetaminophen-Codeine 300-30 MG Oral Tablet 1 Tablet every 6 hours - Do Not Exceed 4 Tablets Per Day. 08/17/2023 09/16/2023 *Reorder from [place] for eRx and Interaction Alerts* traMADol HCl 50 MG Tablet 1 Tablet every 6 hours PRN Oral 05/24/2023 06/23/2023 Progress Notes * NESBITTSanjeevMary ADOB:[birth year] (34 yo F)Acc No.[id number]:12/15/2023 Patient: Mary POWERS :1990 A ge:33 Y S ex:Female Address:[address] [place] [address], [phone] * Refills Stop traMADol HCl Tablet, 50 MG, Oral, 1 Tablet every 6 hours PRN Stop Acetaminophen-Codeine 300-30 MG Oral Tablet, 1 Tablet every 6 hours - Do Not Exceed 4 Tablets Per Day. Subjective: * Chief Complaints: * E MR-Ellis * * Date:
--- OUTSIDE RECORDS SUMMARY | 2023-12-16 03:00 | XMS_ITS ---
Author Organization [facility] Address [address] [place] [address] Care Team Providers Care Mixed Livestock Farm Worker Name Role Phone Joaquin Mak Primary Care Provider Dannie Alejandro JR [phone] Migration, Provider Unavailable Unavailable Allergies Allergen (clinical drug ingredient) Drug/Non Drug Allergy documented on EMR Reaction Allergy Type Onset Date Status amoxicillin Amoxicillin Hives Drug Allergy Act bert Latex Latex Rash Allergy Active REASON FOR VISIT EMR-Ellis Medications Medication SIG (Take, Route, Frequency, Duration) Notes Start Date End Date Status Topiramate *[facility]* Active Gabapentin *[facility]* Active Vitamin D3 *[facility]* Active Leflunomide *[facility]* Active tramadol *Reorder from [facility] for eRx and Interaction Alerts* Active Social [...] Mary NESBITT ADOB:[birth year] (34 yo F)Acc No.[id number]:12/16/2023 Patient: Ruchi POWERSsidanitza Osei :1990 A ge:33 Y S ex:Female Address:[address] [place] [address], [phone] Subjective: * Chief Complaints: * E MR-Ellis [...]
--- OUTSIDE RECORDS SUMMARY | 2025-01-11 21:14 | XMS_ITS | Continuity of Care Document ---
Author Organization [facility] Calvin Humphries, BANNER ([facility]) Address [address] [place] [address] Care Team Providers Care Clam Grower Name Role Phone CIRO MAK Primary Care Provider [phone] Assessment No assessment recorded. Plan of Treatment Reminders Order Date Submit Date Provider Last Modified By Organization Details Last Modified Time Details Appointments None recorded. Lab None recorded. Referral None recorded. Procedures None recorded. Surgeries None recorded. Imaging None recorded. Medication Orders Bactrim DS 800 mg-160 mg tablet 2024 025 [facility], [address] [place] [address], [address], 5 18:07:46 mupirocin 2 % topical ointment 2024 025 [facility], [address] [place] [address], [address], 5 18:07:46 Patient TargetsNo targets recorded. Patient InstructionsNo instructions recorded. Reason for Referral None Reported. Problems Name Problem SNOMED Code Status Onset Date Resolution Date Notes Provider Name and Address Organization Details Recorded Time Depressive disorder 69803580 [facility] 2022 [facility] Migraine 95079545 Active 2022 MIGRAI NE; Impres comfort: daily migrai ne. GEO rubio [facility] 5 17:51:24 Chronic pain syndrome 568202608 Active 2022 GEO MORAAZAR rubio, [facility] 5 17:49:55 Major depressive disorder 452859781 Active 2022 GEO MORA null, [facility] 5 17:49:55 Bipolar disorder 04049088 Active 2022 GEO MORA null, [facility] 5 17:49:54 Essential hypertensio n 74882725 Active 2022 GEO rubio, [facility] 5 17:49:55 Livedo reticularis 301518869 Active 2022 GEO rubio, [facility] 5 17:49:54 Hyperesthes ia 55662030 Active 2022 GEO MORA null, [facility] 5 17:49:54 Gastroesoph ageal reflux disease 735175737 Active 2022 GEO MORA null, [facility] 5 17:49:54 Seizure disorder 003658683 Active 2022 GEO MORA null, [facility] 5 17:49:54 Cyst of left ovary 5028740232554 9108 Active 2022 Ciro Mak MD [address] [place] [address], [phone], [facility] 5 16:21:39 Generalized anxiety disorder 80656333 Active 2023 GEO MORA null, [facility] 5 17:49:54 Pulmonary embolism with pulmonary infarction 6645950999893 Active 2023 GEO MORA null, [facility] 17:50:09 Hypercoagul ability state 25835963 Active 2023 GEO MORA null, [facility] 17:49:55 Chronic diarrhea 860570544 Active 2023 GEO MORA null, [facility] 17:49:54 Genital herpes simplex 83429572 Active 2023 GEO MORA null, [facility] 17:49:54 Derangement of right knee 1446390730085 9109 Active 2024 GEO MORAAZAR rubio, [facility] 17:52:05 Bacterial urinary infection 878921971 Active 2024 Ciro Mak MD [address] [place] [address], [phone], [facility] 16:21:00 Rupture of anterior cruciate ligament of right knee 5035939572170 9103 Active 2024 Ciro Mak MD [address] [place] [address], [phone], [facility] 16:22:23 Acute hepatitis C 756071138 Active 2024 Ciro Mak MD [address] [place] [address], [phone], [facility] 14:23:53 Inflammator y disease of liver 091123210 Active 2024 Ciro Mak MD [address] [place] [address], [phone], [facility] 14:24:06 Generalized abdominal pain 999060508 Active 2024 Ciro Mak MD [address] [place] [address] 5, [facility] 14:25:57 Supraventri cular tachycardia 6958728 Active 2024 Ciro Mak MD [address] [place] [address] 5, [facility] 12:01:26 Acute diarrhea 493409552 Active 2024 Ciro Mak MD [address] [place] [address] 5, [facility] 12:06:09 Iron deficiency anemia due to blood loss 248400597 Active 2024 Ciro Mak MD [address] [place] [address] 5, [facility] 12:10:20 Allergic rhinitis caused by pollen 72816681 Active 2024 Ciro Mak MD [address] [place] [address] 5, [facility] 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 12:16:10 Seizure 04715917 Active 2024 Ciro Mak MD [address] [place] [address], [facility] 15:47:06 Acute hemorrhagic gastritis 5713035 Active 2024 Ciro Mak MD [address] [place] [address], [facility] 5 15:47:27 Pain of multiple joints 91284261 Active 2024 Ciro Mak MD [address] [place], [address], [facility] 15:49:51 Problem Notes None recorded. Procedures Surgical History Date Name Laterality Status Provider Name and Address Organization Details Recorded Time Cholecystectomy completed [facility] [place] 06/11/2023 15:56:58 Tubal Ligation completed [facility] [place], [facility] 06/11/2023 15:57:02 Total Hysterectomy completed [facility] [place], [facility] 06/11/2023 15:57:06 removal of displaced intrauterine contraceptive device completed [facility] [place], [facility] 06/11/2023 15:57:27 Ovarian Cystectomy completed [facility] [place], [facility] 06/11/2023 15:57:42 Laparoscopy completed [facility] [place], [facility] 06/11/2023 15:57:47 right oophorectomy completed Rody Moody [facility] 10/10/2023 10:30:05 Imaging Results None recorded. Procedure Notes None recorded. Medical Equipment None Reported. Allergies Allergen ID Allergen Name Allergen Category Reaction Reaction Severity Criticality Documentation Date Start Date Code Code System Note Provider Name and Address Organization Details Recorded Time 178 amoxicill in medicatio n hives mild low 06/07/2022 723 RxNorm Wilma Pritchett [facility], [facility] 15:52:07 1789 latex environme nt,medica tion hives mild low 06/07/2022 34028 91 RxNorm [facility] 4 15:52:19 24297 methotrex ate medicatio n headache vomiting moderate mild low 11/21/2022 6851 RxNorm Wilma rubio [facility], Calvin 4 15:52:27 79411 methylpre dnisolone medicatio n tachycard ia moderate low 06/11/2023 6902 RxNorm Wilma rubio [facility], Calvin 4 15:54:04 [address]3563 Cipro medicatio n chest pain Not available high 10/03/2024 34883 3 RxNorm SOB as well. [facility]O [facility] 11:25:18 Medications Name Sig Start Date Stop Date Status Note LastModified by Organization Details LastModified Time fluoxetin e 40 mg capsule TAKE ONE CAPSULE BY MOUTH DAILY 01/09 completed Not Available Not Available Not Available cyclobenz aprine 10 mg tablet TAKE [...] TABLET BY MOUTH THREE TIMES DAILY NEEDED 2024 active Not Available Not Available Not Avai lable promethaz ine 25 mg rectal supposito ry insert ONE SUPPOSIT ORY RECTALLY EVERY 6 HOURS as needed for nausea and vomiting active Not Available Not Available No t Available fluconazo le 200 mg tablet TAKE 1 TABLET BY MOUTH NOW, THEN REPEAT WHEN OUT OF METRONID AZOLE 09/28 completed Not Available Not Available Not Available sucralfat e 1 gram tablet TAKE ONE TABLET BY MOUTH EVERY 6 HOURS NEEDED for upset stomach 01/09 completed Not Available Not Available Not Available ondansetr on HCl 4 mg tablet Take 1 tablet every 6 hours by oral route. 01/16 completed Not Available Not Available Not Available prednison e 20 mg tablet daily 01/[address] Jm Pruett; Recorded 05/09/19 10:52AM by Geo Mora, Office [...] Available metronida zole 500 mg tablet TAKE ONE TABLET BY MOUTH TWICE DAILY for SEVEN DAYS 01/09 completed Not Available Not Available Not Available acetamino phen 300 mg-codein e 30 mg tablet TAKE 1 TABLET BY MOUTH EVERY 6 HOURS . DO NOT EXCEED 4 PER 24 HOURS 10/09 completed Not Available Not Available Not Available divalproe x 500 mg tablet,de layed release TAKE 1 TABLET BY MOUTH TWICE DAILY 06/11 completed Not Available Not Available Not Available ciproflox acin 500 mg tablet TAKE ONE TABLET BY MOUTH TWICE DAILY FOR 7 DAYS 01/09 completed Not Available Not Available Not Available omeprazol e 40 mg capsule,d elayed release TAKE ONE CAPSULE BY MOUTH DAILY for FOUR WEEKS 11/14 completed Not Available Not Available Not Available leflunomi de 20 mg tablet TAKE 1 TABLET BY MOUTH ONCE DAILY 11/14 completed Not Available Not Available Not Available tramadol 50 mg tablet TAKE ONE TABLET BY MOUTH EVERY 4 HOURS NEEDED for 15 DAYS 11/14 completed Not Available Not Available Not Available amitripty line 50 mg tablet TAKE 1 TABLET BY MOUTH AT BEDTIME active Not Available Not Available No t Available triamtere ne 37.5 mg-hydroc hlorothia zide 25 mg capsule TAKE 1 CAPSULE BY MOUTH ONCE DAILY 01/09 completed Not Available Not Available Not Available vancomyci n 125 mg capsule TAKE ONE CAPSULE BY MOUTH EVERY 6 HOURS for 10 DAYS 01/09 completed Not Available Not Available Not Available ondansetr on 8 mg disintegr ating tablet DISSOLVE ONE-HALF TO ONE TABLET ON THE TONGUE EVERY 6 HOURS as needed for nausea and vomiting active Not Available Not Available No t Available alprazola m 0.5 mg tablet TAKE ONE TABLET BY MOUTH THREE TIMES DAILY NEEDED 2024 active Not Available Not Available Not Avai lable alprazola m 0.25 mg tablet TAKE ONE TABLET BY MOUTH THREE TIMES DAILY as needed for 30 DAYS active Not Available Not Available No t Available famotidin e 20 mg tablet TAKE 1 TABLET BY MOUTH ONCE DAILY 11/14 completed Not Available Not Available Not Available methocarb rabia 750 mg tablet take [...] layed release TAKE ONE TABLET BY MOUTH EVERY DAY active Not Available Not Available No t Available acyclovir 5 % topical ointment APPLY TO THE AFFECTED AREA(S) topiclal y EVERY THREE HOURS six times PER DAY 01/09 completed Not Available Not Available Not Available trazodone 150 mg tablet TAKE ONE TABLET BY MOUTH EVERY EVENING 01/09 completed Not Available Not Available Not Available neomycin- polymyxin -dexameth 3.5 mg/mL-10, 000 unit/mL-0 .1% eye drops 07/07 completed Not Available Not Available Not Available buspirone 10 mg tablet TAKE 1 TABLET BY MOUTH TWICE DAILY 01/09 completed Not Available Not Available Not Available divalproe x ER 500 mg tablet,ex tended release 24 hr TAKE 1 TABLET BY MOUTH TWICE DAILY 11/05 completed Not Available Not Available Not Available lidocaine 5 % topical patch apply ONE PATCH topicall y DAILY; LEAVE ON most painful AREA for UP TO 12 hours 01/09 completed Not Available Not Available Not Available promethaz ine 25 mg tablet TAKE [...] BY MOUTH FOUR TIMES DAILY for 30 days 2024 active Not Available Not Available Not Avai lable diclofena c sodium 75 mg tablet,de layed release TAKE ONE TABLET BY MOUTH TWICE DAILY 01/09 completed Not Available Not Available Not Available folic acid 1 mg tablet TAKE 1 TABLET BY MOUTH DAILY 11/05 completed Not Available Not Available Not Available topiramat e 200 mg tablet TAKE ONE TABLET BY MOUTH TWICE DAILY active Not Available Not Available No t Available mupirocin 2 % topical ointment APPLY A SMALL AMOUNT TO THE AFFECTED AREA BY TOPICAL ROUTE 3 TIMES PER DAY 2024 active Not Available Not Available Not [...] TAKE 1 CAPSULE BY MOUTH TWICE DAILY 11/14 completed Not Available Not Available Not Available ondansetr on 4 mg disintegr ating tablet DISSOLVE ONE TABLET ON THE TONGUE THREE TIMES DAILY as needed for nausea and vomiting active Not Available Not Available No t Available cefdinir 300 mg capsule TAKE ONE CAPSULE BY MOUTH EVERY TWELVE HOURS for SEVEN DAYS 11/14 completed Not Available Not Available Not Available [...] Not Available Not Available No t Available loratadin e 10 mg tablet TAKE ONE TABLET BY MOUTH EVERY DAY active Not Available Not Available No t Available naproxen 500 mg tablet TAKE 1 TABLET BY MOUTH TWICE DAILY NEEDED 06/10 completed Not Available Not Available Not Available oxycodone 5 mg tablet TAKE ONE TABLET BY MOUTH EVERY 6 HOURS NEEDED FOR PAIN 05/26 completed Not Available Not Available Not Available Bactrim DS 800 mg-160 mg tablet Take 1 tablet twice a day by oral route for 7 days. 2024 active Not Available Not Available Not Avai lable metoprolo l tartrate 25 mg tablet TAKE ONE TABLET BY MOUTH TWICE DAILY active Not Available Not Available No t Available nitrofura ntoin monohydra te/macroc rystals 100 [...] tablet twice a day by oral route. 01/09 completed Not Available Not Available Not Available citalopra m daily 01/16 completed From [facility]; 0; Recorded 05/09/19 10:54AM by Geo Mora, Office Visit; Not Available Not Available Not Available folic acid daily 02/16 completed 0; Recorded 05/09/19 23 10:52AM by Geo Mora, Office Visit; Not Available Not Available Not Available methotrex ate every y. 01/[address] Salcedo; 0; Recorded 05/09/19 23 10:38AM by Geo Mora, Office Visit; Not [...] Not Available BuSpar daily 01/16 completed From [facility]; 0; Recorded 05/09/19 23 10:49AM by Geo [...] TAKE ONE TABLET BY MOUTH TWICE DAILY 11/14 completed Not Available Not Available Not Available selenium sulfide 2.3 % shampoo 3 times weekly 09/28 completed Recorded 07/06/19 4:06PM by Geo Mora, Office Visit; Refill [...] d this [place] state standing order at [phone] active Not Available Not Available No t Available Mavyret 100 mg-40 mg tablet TAKE THREE TABLETS BY MOUTH EVERY DAY 01/09 completed Not Available Not Available Not Available Eliquis DVT-PE Treatment 30-Day Starter 5 mg (74 tablets) in dose pack TAKE BY MOUTH PER PACKAGE directio ns 09/16 completed Not Available Not Available Not Available Vitals Date Recorded Body height Body mass index (BMI) Body weight Respiratory rate Heart rate Oxygen saturation Body temperature Systolic And Diastolic Provider Name and Address Organization Details Last Updated DateTime 149.86 cm 23.7 kg/m2 31887.7 1 g 16 /min 87 /min 99 % 98.4 [degF] 128/76 mm[Hg] CHASE AMES [facility] 17:49:13 Social History Question Answer Notes LastModified by [facility] Details LastModified Time Tobacco Smoking Status Never Smoker Wilma rubio [facility] 06/11/2023 15:56:49 What Was The Date Of Your Most Recent Tobacco Screening? 01/09/2025 [email or web address] Information not available 01/09/2025 Sex: Unknown Functional Status Question Answer Note LastModified by [facility] Details LastModified Time Do you use any [...] Diseases N Hyperthyroidism N Blood Transfusion N Breast [...] Recorded Time Tdap 3 completed GEO rubio [facility] 02/16/2023 15:11:53 Influenza, split virus, trivalent, preservative 6 completed GEO rubio [facility] 02/16/2023 15:11:53 Influenza, split virus, quadrivalent, preservative 9 completed GEO rubio [facility] 02/16/2023 15:11:52 Past Encounters Encounter ID Performer Location Encounter Start Date Encounter Closed Date Diagnosis/Indication Diagnosis SNOMED-CT Code Diagnosis ICD10 Code Diagnosis IMO Codes Diagnosis Note [id number] GLENN GARCIA [facility] ([facility]) [address] [place] [address] 01/09/2025 17:36:42 01/09/2025 18:07:35 Acute folliculitis 638025303 L73.9 [id number] Health Concerns Section Related Observation LastModified by Organization Detai ls LastModified Time None Recorded Concern Status LastModified by Organization Details LastModified Time None Recorded Payers Encounter Date Sequence Insurance Name Policy Number Policy Tovar Covered Member ID Tovar Member ID Guarantor Name 01/09/2025 1 [facility] (MEDICAID HMO) Mary Nesbitt [id number] Mary Nesbitt Notes Date Note Type Note Provider Name and Address Organization Details Recorded Time 01/09/2025 text/html Skin LesionRepor abhijeet by PatientHPIFor associated symptoms, patient reportsfever,lesions multiplying,fatigue, andmyalgia. For location, patient reportsaxillaandgroi n. For quality, patient reportspainful,drain age,growing __, andbecoming more symptomatic. For severity, patient reportsmoderate. For duration, patient reports3 weeks.ROS as noted in the HPI walk-in GLENN GARCIA [address] [place] [address], [phone], [facility] 01/09/2025 18:01:46 OBGyn Episode No OBEpisode recorded.
--- OUTSIDE RECORDS SUMMARY | 2025-01-11 21:14 | XMS_ITS | Patient Health Record ---
Author Organization [facility] Address [address] [place] [address] Care Team Providers Care International Freight Forwarder Name Role Phone Joaquin Mak Primary Care Provider Dannie Alejandro JR Unavailable [phone] Reason For Referral Reason Chronic Diarrhea c lose 11/25 Diagnosis 1 Chronic diarrhea (K5 2.9) Referring Provider First Name Joaquin Referring Provider Last Name Obdulio Referring Provider Speciality Family Med icine Referred Organization [facility] Medicine & Infectious Disease Referred Provider Dannie Bui Referred Address [address] [facility] [facility],[place] [facility] [facility],[address], Referred Provider Specialty Infectious D isease General Notes Jamila Mohamud 11/06 04:50:01 PM CDT > mailbox full, Jamila Mohamud 11/11/2024 10:15:58 AM CDT > mailbox full Referral Priority Routine Medications Medication SIG (Take, Route, Frequency, Duration) Notes Start Date End Date Status Topiramate *[facility] Active Gabapentin *[facility]* Active Vitamin D3 *[facility]* Active Leflunomide *[facility]* Active tramadol *Reorder from [facility] for eRx and Interaction Alerts* Active [...] Smoking - No, Working currently? - No Plan Of Treatment No Information Insurance Providers Payer Name Payer Address Payer Phone Subscriber Number Group Number Insured Name Patient Relationship to Insured Coverage Start Date Coverage End Date Home [facility] Plan Medicaid Replacement [address] [facility] [place] [address] [id number] Mary Nesbitt Self - patient is the insured Medical (General) History Surgical History Surgery Date(Month/Year) Gynecological surgeries
--- OUTSIDE RECORDS SUMMARY | 2025-01-11 21:14 | XMS_ITS | Data Portability ---
Author Organization [place] Hurtado [facility] Calvin Humphries [facility] Address [address] [address] Care Team Providers Care Production Technologist Name Role Phone CIRO MAK Primary Care Provider Assessment Encounter Date Assessment Date Assessment LastModified by Organization Details LastModified Time 10/03/2024 10/03/2024 Patient presents with symptoms of UTI. Results of dipstick were for UTI. Advised to drink clear fluids, Tylenol for pain and take prescribed medications as instructed. Patient encouraged to follow up within 1 week if not improving. [email or web address] Not available 10/03/2024 12:01:13 Plan of Treatment Reminders Order Date Submit Date Provider Last Modified By Organization Details Last Modified Time Details Appointments None recorded. Lab CBC 2024 025 [facility], [address] [facility], [facility] [address], [place], [address], 5 16:14:51 CMP, serum or plasma 2024 025 [facility], [address] [place] [address] 248, [address] [place], [address], 10:24:25 urinalysis, complete 2024 025 [facility], [address] [facility], [facility] [address], [address], 13:24:20 culture, urine 2024 025 [facility], [address] [facility] [address], [address], [place], [address], 5 00:49:03 CBC 2024 025 [facility], [address] [facility], [address], [place], [address], 5 13:04:30 iron, serum 2024 025 [email or web address] [facility], [address] [facility] , [address], [place], [address], 5 09:42:57 ferritin, serum or plasma 2024 025 [facility], [address] [facility] [address], [address], [place], [place], [address], 5 00:49:02 TIBC (total iron-bindin g capacity), serum 2024 025 [facility], [address] [facility] [address], [address], [place], [address], 5 09:42:57 C diff screen, stool, reflex PCR 2024 025 4 [facility] ([facility]), [address] [place] [address], [address], 5 12:13:51 infectious disease panel 2024 025 [email or web address] 4 [facility] ([facility]), [address] [place] [address], [address], 5 12:13:50 hepatic function panel, serum 2024 025 [facility], [address] [facility], [facility] [address], [place], [address], 21:54:34 hepatitis C virus Ab, serum 2024 ALTO [facility], [address] [facility] [address], [address] [place], [address], 21:54:36 hepatitis C genotype, serum or plasma 2024 025 [facility] [address] [place], [address], 21:54:37 Referral gynecologis t referral [address], [address] [place] [address], [address], 21:06:22 Procedures None recorded. Surgeries None recorded. Imaging None recorded. Medication Orders Bactrim DS 800 mg-160 mg tablet [address] [facility], [address] [place] [address], [address], 18:07:46 mupirocin 2 % topical ointment [address] [facility], [address] [place] [address], [address], 18:07:46 alprazolam 0.5 mg tablet [address] [facility], [address] [place] [address], [address], 09:54:03 diclofenac sodium 75 mg tablet,michael yed release [address] [facility], [address] [place] [address], [address], 17:55:16 metoprolol tartrate 25 mg tablet [address] [facility], [address] [place] [address], [address], 13:31:51 loratadine 10 mg tablet [address] [facility], [address] [place] [address], [address], 15:11:23 cephalexin 500 mg capsule [address] [facility], [address] [place] [address], [address], 05:01:23 clindamycin HCl 300 mg capsule [address] [facility], [address] [place] [address], [address], 05:01:23 Patient TargetsNo targets recorded. Patient Instructions Encounter Date Encounter Id Patient Instructions Last Modified By Organization Details Last Modified Time 06/13/2024 [id number] Cleared for surgical repair of the knee. [email or web address] Not available 06/13/2024 16:34:29 Reason for Referral Book Repairer Referral for Cy st of left ovary Referring Physician: Ciro Mak, Family Medicine, Encounter Date: 06/13/2024 Results Created Date Observation Date Name Description Value Unit Range Abnormal Flag Note LastModifiedBy Organization Detail LastModifiedTime 09/13/1909/17/2024 HEPAT IC FUNCT ION PANEL protein, total 7.3 g/dL 6.1-8. 1 normal Not Available [facility] [address] [place], [address], 09/17/2024 21:54:34 09/13/1909/17/2024 HEPAT IC FUNCT ION PANEL albumin 4.4 g/dL 3.6-5. 1 normal Not Available [address] [address] [place], [address], 09/17/2024 21:54:34 09/13/1909/17/2024 HEPAT IC FUNCT ION PANEL globulin 2.9 g/dL_ (calc ) 1.9-3. 7 normal Not Available [address] [address] [place], [address], 09/17/2024 21:54:34 09/13/1909/17/2024 HEPAT IC FUNCT ION PANEL albumin/glob ulin ratio 1.5 (calc ) 1.0-2. 5 normal Not Available [address], [address], 09/17/2024 21:54:34 09/13/1909/17/2024 HEPAT IC FUNCT ION PANEL bilirubin, total 0.5 mg/dL 0.2-1. 2 normal Not Available [address] [address] [place], [address], 09/17/2024 21:54:34 09/13/1909/17/2024 HEPAT IC FUNCT ION PANEL bilirubin, direct 0.2 mg/dL < or = 0.2 normal Not Available [address] [address] [place], [address], 09/17/2024 21:54:34 09/13/1909/17/2024 HEPAT IC FUNCT ION PANEL bilirubin, indirect 0.3 mg/dL _(arron c) 0.2-1. 2 normal Not Available [address] [address] [place], [address], 09/17/2024 21:54:34 09/13/1909/17/2024 HEPAT IC FUNCT ION PANEL alkaline phosphatase 182 U/L 31-125 high Not Available [facility] [address] [address] [place], [address], 09/17/2024 21:54:34 09/13/19 25 09/17/2024 HEPAT IC FUNCT ION PANEL AST 77 U/L 10-30 high Not Available [address] [place], [address], 09/17/2024 21:54:34 09/13/19 25 09/17/2024 HEPAT IC FUNCT ION PANEL ALT 624 U/L 6-29 high Verif ied by repea t darius sis. Not Available [address] [place], [address], 09/17/2024 21:54:34 09/13/1909/17/2024 HEPAT ITIS C AB W/REF L TO HCV RNA, QN, PCR hepatitis C antibody REACTI VE non-re active abnormal Based on this resul t, the sampl e will be teste d for HCV RNA by a Nucle ic Acid Ampli ficat ion Test (NAAT ) to deter mine if the patie nt has a curre nt activ e infec tion. Not Available [address] [place], [address], 09/17/2024 21:54:36 09/13/19 25 09/17/2024 HCV RNA, QUANT ITATI VE REAL TIME PCR HCV RNA, quantitative real time PCR [id number] 0 IU/mL not detect ed high Not Available [address] [place], [address], 09/17/2024 21:54:37 09/13/1909/17/2024 HCV RNA, QUANT ITATI VE REAL TIME PCR HCV RNA, quantitative real time PCR 6.30 log_I U/mL not detect ed high HCV RNA was detec yogi. This resul t provi daisy labor atory evide nce of a curre nt activ e HCV infec tion. Not Available [facility] [address] [address] [place], [address], 09/17/2024 21:54:37 09/13/19 25 09/17/2024 HCV RNA, QUANT ITATI VE REAL TIME PCR comment For more andrea chiu on this test, go to: http: //[facility] omerque stdia gnost ics.c om/fa q/FAQ 22v1 (This link is being provi ded for infor matio nal/ educa concepcion l purpo ses only. ) This assay is inten ded for use as an aid in the diagn osis of HCV infec tion and the manag ement of HCV infec yogi patie nts under going anti- viral thera py. Not Available [facility] [address] [place], [address], 09/17/2024 21:54:37 09/13/19 25 09/17/2024 HEPAT ITIS C VIRUS RNA GENOT YPE hepatitis C virus RNA genotype 3 normal REFER ENCE RANGE : NOT DETEC YOGI The metho ds used in this test are RT-PC R and DNA Seque ncing of the 5' UTR and core regio n of the HCV genom e. For addit ional nancy malin e refer to http: //[facility] Danielle stDia gnost ics.c om/fa q/HCV Genot yping (This link is being provi ded for infor matio nal/ educa concepcion l purpo ses only. ) This test was devel oped and its darius tical perfo rmanc e carlo cteri stics have been deter mined by [facility]. It has not been clear ed or appro bubba by the FDA. This assay has been valid ated pursu ant to the CLIA regul ation s and is used for clini arron purpo ses. Not Available [facility] [address] [place], [address], 09/17/2024 21:54:37 10/04/19 25 10/03/2024 CBC WBC 6.2 x10 4.0-10 .5 Not Available [facility] [address] [facility] 1, [place], [address], 10/03/2024 13:04:30 10/04/19 25 10/03/2024 CBC RBC 3.56 x10 3.50-5 .50 Not Available [facility] [address] [facility] 1, [place], [address], 10/03/2024 13:04:30 10/04/19 25 10/03/2024 CBC HGB 9.3 g/dL 12.0-1 6.0 low Not Available [facility] [address] [facility] 1, [place], [address], 10/03/2024 13:04:30 10/04/1910/03/2024 CBC HCT 31.0 % 37.0-4 7.0 low Not Available [facility] [address] [facility] 1, [place], [address], 10/03/2024 13:04:30 10/04/19 25 10/03/2024 CBC MCV 87.2 fL 80.0-9 9.9 Not Available [facility] [address] [facility] 1, [place], [address], 10/03/2024 13:04:30 10/04/19 25 10/03/2024 CBC MCH 26.2 pg 27.0-3 2.0 low Not Available [facility] [address] [facility] 1, [place], [address], 10/03/2024 13:04:30 10/04/1910/03/2024 CBC MCHC 30.1 g/dL 32.0-3 6.0 low Not Available [facility] [address] [facility] 1, [place], [address], 10/03/2024 13:04:30 10/04/19 25 10/03/2024 CBC RDW 16.8 % 11.5-1 4.5 high Not Available [facility] [address] [facility] 1, [place], [address], 10/03/2024 13:04:30 10/04/19 25 10/03/2024 CBC plt 382.2 x10 140.0- 451.0 Not Available [facility] [address] [facility] 1, [place], [address], 10/03/2024 13:04:30 10/04/19 25 10/03/2024 CBC lymphocytes % 56.4 % 20.0-5 0.0 high Not Available [facility] [address] [facility] 1, [place], [address], 10/03/2024 13:04:30 10/04/19 25 10/03/2024 CBC granulcytes % 29.8 % 30.0-7 0.0 panic low Not Available [facility] [address] [facility] 1, [place], [address], 10/03/2024 13:04:30 10/04/19 25 10/03/2024 CBC monocytes % 9.3 % 2.0-16 .0 Not Available [facility] [address] [facility], [place], [address], 10/03/2024 13:04:30 10/04/19 25 10/03/2024 CBC granulcytes# 1.8 x10 Not Guillermina ilable [facility] [address] [facility], [place], [address], 10/03/2024 13:04:30 10/04/19 25 10/03/2024 CBC lymphocytes # 3.5 x10 Not Available [facility] [address] [facility] 1, [place], [address], 10/03/2024 13:04:30 10/04/19 25 10/03/2024 CBC monocytes # 0.6 x10 Not Avai lable [facility] [address], [place], [address], 10/03/2024 13:04:30 10/04/19 25 10/03/2024 URINA LYSIS WITH MICRO color YELLOW Not Available [facility] [address], [place], [address], 10/03/2024 13:24:20 10/04/19 25 10/03/2024 URINA LYSIS WITH MICRO clarity CLEAR Not Available [facility] [address], [place], [address], 10/03/2024 13:24:20 10/04/19 25 10/03/2024 URINA LYSIS WITH MICRO glu NEGATI VE Not Available [facility] [address], [place], [address], 10/03/2024 13:24:20 10/04/19 25 10/03/2024 URINA LYSIS WITH MICRO bili NEGATI VE Not Available [facility] [address], [place], [address], 10/03/2024 13:24:20 10/04/19 25 10/03/2024 URINA LYSIS WITH MICRO ket NEGATI VE Not Available [facility] [address], [place], [address], 10/03/2024 13:24:20 10/04/19 25 10/03/2024 URINA LYSIS WITH MICRO S.g >1.030 1.005- 1.025 high > Not Available [facility] [address], [place], [address], 10/03/2024 13:24:20 10/04/19 25 10/03/2024 URINA LYSIS WITH MICRO pH 6.0 5.0-7. 0 Not Available [facility] [address], [place], [address], 10/03/2024 13:24:20 10/04/19 25 10/03/2024 URINA LYSIS WITH MICRO pro 1+ Not Available [facility] [address], [place], [address], 10/03/2024 13:24:20 10/04/19 25 10/03/2024 URINA LYSIS WITH MICRO uro 0.2 E.U./D L Not Available [facility] [address], [place], [address], 10/03/2024 13:24:20 10/04/19 25 10/03/2024 URINA LYSIS WITH MICRO nit NEGATI VE Not Available [facility] [address] [facility] [address], [place], [address], 10/03/2024 13:24:20 10/04/19 25 10/03/2024 URINA LYSIS WITH MICRO blo NEGATI VE Not Available [facility] [address], [place], [address], 10/03/2024 13:24:20 10/04/19 25 10/03/2024 URINA LYSIS WITH MICRO janice NEGATI VE Not Available [facility] [address], [place], [address], 10/03/2024 13:24:20 10/04/19 25 10/03/2024 URINA LYSIS WITH MICRO WBC 6-8 abnormal Not Available [facility] [address], [place], [address], 10/03/2024 13:24:20 10/04/19 25 10/03/2024 URINA LYSIS WITH MICRO RBC 2-3 Not Available [facility] [address], [place], [address], 10/03/2024 13:24:20 10/04/19 25 10/03/2024 URINA LYSIS WITH MICRO epi cells 12-15 abnormal Not Available [facility] [address] [facility] [address], [place], [address], 10/03/2024 13:24:20 10/04/19 25 10/03/2024 URINA LYSIS WITH MICRO bacteria 3+++ MUCUS THREAD S abnormal Not Available [facility] [address] [facility] [address], [place], [address], 10/03/2024 13:24:20 10/04/19 25 10/03/2024 URINA LYSIS WITH MICRO other NG Not Available [facility] [address] [facility] 1, [place], [address], 10/03/2024 13:24:20 10/04/19 25 10/04/2024 IRON AND TOTAL IRON MUNA NG CAPAC ITY iron, total 16 mcg/d L 40-190 low Not Available [address], [address], 10/05/2024 00:49:01 10/04/19 25 10/04/2024 IRON AND TOTAL IRON MUNA NG CAPAC ITY iron binding capacity 488 mcg/d L_(ca lc) 250-45 0 high Not Available [address], [address], 10/05/2024 00:49:01 10/04/19 25 10/04/2024 IRON AND TOTAL IRON MUNA NG CAPAC ITY % saturation 3 %_(ca lc) 16-45 low Not Available [address], [address], 10/05/2024 00:49:01 10/04/19 25 10/04/2024 KAREN TIN ferritin 8 NG/mL 16-154 low Not Available [facility] [address], [address], 10/05/2024 00:49:02 10/04/19 25 10/04/2024 CULTU RE, URINE , ROUTI NE culture, urine, routine SEE NOTE CULTU RE, URINE , ROUTI NE Micro Numbe r: [id number] Test Statu s: Final Speci men Sourc e: Urine Speci men Quali ty: Adequ ate Resul t: Mixed genit al amador isola yogi. These super ficia l bacte preston are not indic ative of a urina ry tract infec tion. No furth er organ ism ident ifica tion is warra nted on this speci men. If clini wes indic ated, recol lect clean -catc h, mid-s tream urine and trans jean immed iatel y to Urine Cultu re Trans port Tube. Not Available [facility] [address] [place], [address], 10/05/2024 00:49:03 05/28/19 25 05/26/2024 XR, knee, 3 view No observ ation record ed. [facility] [address] [place], [address], 06/03/2024 14:40:14 06/13/19 25 06/12/2024 MRI, knee, w/o contr ast No observ ation record ed. [facility] [address] [place], [address], 06/27/2024 11:13:58 11/26/19 25 11/13/2024 upper endos copy (EGD) with colon oscop y (PROC ) No observ ation record ed. [email or web address] Not Available 11/26 17:02:19 Result Notes None recorded. Problems Name Problem SNOMED Code Status Onset Date Resolution Date Notes Provider Name and Address Organization Details Recorded Time Depressive disorder 38079847 Active 2022 GEO GUZMAN [facility] [place] [facility], LRocLJudie 04/09/202 5 17:49:55 Migraine 92329326 Active 2022 MIGRAI NE; Impres comfort: daily migrai ne. GEO rubio, [facility] 5 17:51:24 Chronic pain syndrome 946218302 Active 2022 GEO rubio, [facility] 5 17:49:55 Major depressive disorder 509419213 Active 2022 GEO rubio, [facility] 5 17:49:55 Bipolar disorder 57601511 Active 2022 GEO rubio, [facility] 5 17:49:54 Essential hypertensio n 10375201 Active 2022 GEO rubio, [facility] 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 5 17:49:54 Hyperesthes ia 05754739 Active 2022 GEO rubio, [facility] 5 17:49:54 Gastroesoph ageal reflux disease 808272605 Active 2022 GEO rubio, [facility] 5 17:49:54 Seizure disorder 827522951 Active 2022 GEO rubio, [facility] 17:49:54 Cyst of left ovary 9758555176413 9108 Active 2022 Ciro Mak MD [address] [place] [address], [address], [facility] 16:21:39 Generalized anxiety disorder 09122152 Active 2023 GEO rubio, [facility] 17:49:54 Pulmonary embolism with pulmonary infarction 8800154242885 Active 2023 GEO rubio, [facility] 17:50:09 Hypercoagul ability state 19236228 Active 2023 GEO GUZMAN null, [facility] 5 17:49:55 Chronic diarrhea 287116927 Active 2023 GEO VILLAGRANRIS null, [facility] 17:49:54 Genital herpes simplex 15619429 Active 2023 [facility] GUZMAN [facility], [facility] 17:49:54 Derangement of right knee 9861334056135 9109 Active 2024 GEO GUZMAN null, [facility] 17:52:05 Bacterial urinary infection 030481321 Active 2024 Ciro Mak MD [address] [place] [address], [address], [facility] 16:21:00 Rupture of anterior cruciate ligament of right knee 6869865988650 9103 Active 2024 Ciro Mak MD [address] [place] [address], [address], [facility] 16:22:23 Acute hepatitis C 568795124 Active 2024 Ciro Mak MD [address] [place] [address], [facility] 14:23:53 Inflammator y disease of liver 753108468 Active 2024 Ciro Mak MD [address] [place] [address], [address], [facility] 14:24:06 Generalized abdominal pain 929586085 Active 2024 Ciro Mak MD [address] [place] [address], [address], [facility] 14:25:57 Supraventri cular tachycardia 0137504 Active 2024 Ciro Mak MD [address] [place] [address], [address], [facility] 12:01:26 Acute diarrhea 862500760 Active 2024 Ciro Mak MD [address] [place] [address], [address], [facility] 12:06:09 Iron deficiency anemia due to blood loss 650512147 Active 2024 Ciro Mak MD [address] [place] [address], [address], [facility] 12:10:20 Allergic rhinitis caused by pollen 22479123 Active 2024 Ciro Mak MD [address] [place] [address], [address], [facility] 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 12:16:10 Seizure 99006909 Active 2024 Ciro Mak MD [address] [place] [address], [address], [facility] 15:47:06 Acute hemorrhagic gastritis 9053363 Active 2024 Ciro Mak MD [address] [place], [address], [facility], [place] 15:47:27 Pain of multiple joints 12878322 Active 2024 Ciro Mak MD [address] [place], [address], [facility], DeliaCRoc 15:49:51 Problem Notes None recorded. Procedures Surgical History Date Name Laterality Status Provider Name and Address Organization Details Recorded Time Cholecystectomy completed [facility], [place] 06/11/2023 15:56:58 Tubal Ligation completed [facility], [place] 06/11/2023 15:57:02 Total Hysterectomy completed [facility], [place] 06/11/2023 15:57:06 removal of displaced intrauterine contraceptive device completed [facility], MargoLJudie 06/11/2023 15:57:27 Ovarian Cystectomy completed [facility], LRocLRocCRoc 06/11/2023 15:57:42 Laparoscopy completed [facility], [place] 06/11/2023 15:57:47 right oophorectomy completed Rody Moody [facility], L.LRocCRoc 10/10/2023 10:30:05 Imaging Results None recorded. Procedure Notes None recorded. Medical Equipment None Reported. Allergies Allergen ID Allergen Name Allergen Category Reaction Reaction Severity Criticality Documentation Date Start Date Code Code System Note Provider Name and Address Organization Details Recorded Time 1787 amoxicill in medicatio n hives mild low 06/07/2022 723 RxNorm [facility]rata [facility] 15:52:07 1789 latex environme nt,medica tion hives mild low 06/07/2022 48294 91 [facility] 4 15:52:19 24491 methotrex ate medicatio n headache vomiting moderate mild low 11/21/2022 6851 RxNorm Wilma Pritchett [facility], Calvin 4 15:52:27 72246 methylpre dnisolone medicatio n tachycard ia moderate low 06/11/2023 6902 [facility]oL[facility] 4 15:54:04 25061 Cipro medicatio n chest pain Not available high 10/03/2024 85131 3 RxNorm SOB as well. [facility] 5 11:25:18 Medications Name Sig Start Date [...] e 20 mg tablet daily 01/16 completed I; 0; Recorded 05/09/19 10:52AM by Geo Guzman, Office Visit; Not [...] 6 TABLETS BY MOUTH ONCE WEEKLY EVERY 06/10 completed Not Available Not Available Not [...] Available citalopra m daily 01/16 completed From [facility]; 0; Recorded 05/09/19 23 10:54AM by Geo [...] Not Available BuSpar daily 01/16 completed From [facility]; 0; Recorded 05/09/19 23 10:49AM by Geo [...] 09/28 completed Recorded 07/06/19 4:06PM by Geo Guzman, Office Visit; Refill Quantity : 1; Bottle; Not Available Not Available Not Available Narcan 4 mg/actuat ion nasal spray call 911. administ er a single spray of narcan in one nostril. repeat every 2-3 minutes as needed if no or minimal response ; Refer question s about refills only to the lanie urrutia d r[place] state standing order at active Not [...] Updated DateTime 06/13/2024 149.86 cm 23.4 kg/m2 22925.71 g 100 /min 110/78 mm[Hg] SONIYA KRUEGER [facility] 5 15:55:12 Date Recorded Body height Body mass index (BMI) Body weight Oxygen saturation Heart rate Systolic And Diastolic Provider Name and Address Organization Details Last Updated DateTime 149.86 cm 22 kg/m2 02525.5 7 g 100 % 94 /min 110/80 mm[Hg] GEO GUZMAN [facility] 5 14:05:44 Date Recorded Body height Body mass index (BMI) Body weight Oxygen saturation Heart rate Systolic And Diastolic Provider Name and Address Organization Details Last Updated DateTime 149.86 cm 23 kg/m2 39011.5 3 g 98 % 120 /min 124/78 mm[Hg] GEO [facility] 5 11:28:19 Date Recorded Body height Body mass index (BMI) Body weight Oxygen saturation Heart rate Systolic And Diastolic Provider Name and Address Organization Details Last Updated DateTime 5 149.86 cm 23.2 kg/m2 35833.1 2 g 97 % 67 /min 100/70 mm[Hg] GEO [facility] 5 15:31:09 Date Recorded Body height Body mass index (BMI) Body weight Respiratory rate Heart rate Oxygen saturation Body temperature Systolic And Diastolic Provider Name and Address Organization Details Last Updated DateTime 5 149.86 cm 23.7 kg/m2 74729.7 1 g 16 /min 87 /min 99 % 98.4 [degF] 128/76 mm[Hg] CHASE KWAKU [facility] 5 17:49:13 Social History Question Answer Notes LastModified by [facility] Details LastModified Time Tobacco Smoking Status [facility]23 15:56:49 What Was The Date Of Your Most Recent Tobacco Screening? 01/09/2025 [email or web address] Information not available 01/09/2025 Sex: Unknown Functional Status Question Answer Note LastModified by [facility] Details LastModified Time Do you use any [...] N Blood Transfusion N Breast Cancer N COPD N Lung Disease N Hypothyroidism N Depression Y Defects or Inherited Disease N Developmental or Behavioral Disorders N Breast Problem N Difficulty Swallowing N Anesthesia Complications N Meniere's disease N Anxiety Disorder Y Muscle, Joint, or Bone Problems N Vision or Eye Problems N Arthritis N Polyps N Infertility N Cancer N Varicosities N Stroke N Endometriosis N Bladder or Kidney Problems N High Cholesterol N Liver Disease N Headaches Y Fibromyalgia N Kidney Disease N Allergies/Hayfever N Heart Problems [...] Recorded Time Tdap [address] [facility] 02/16/2023 15:11:53 Influenza, split virus, trivalent, preservative [address] [facility] 02/16/2023 15:11:53 Influenza, split virus, quadrivalent, preservative [address] [facility] 02/16/2023 15:11:52 Past Encounters Encounter ID Performer Location Encounter Start Date Encounter Closed Date Diagnosis/Indication Diagnosis SNOMED-CT Code Diagnosis ICD10 Code Diagnosis IMO Codes Diagnosis Note [id number] Ciro Mak MD [facility] ([facility]) [address] [place] [address] 06/07/2022 10:06:39 06/13/2022 11:39:35 Low back pain 122954510 M54.51 Major depr essive disorder 926981217 F32.9 Bipolar disorder 3001377 4 F31.9 Essential hypertension 74270399 I10 Chronic pain syndrome 37 0860901 G89.4 [id number] Ciro Mak MD [facility] ([facility]) [address] [place] [address] 5 07/07/2022 10:03:35 07/07/2022 13:02:37 Livedo reticularis 773583938 R23.1 unknown cause on her back. Will check MANOJ, ESR, CRP and other tests on return. Postoperat bert hematoma formation 983459663 T81.89XS She has a tender hematoma in left low abdomen area. Will watch it for now. [id number] Ciro Mak MD [facility] ([facility]) [address] [place] [address] 5 09/06/2022 14:41:46 09/06/2022 17:12:15 Low back pain 411500419 M54.50 stable Depressive disorder 3548 9007 F32.9 Hyperesthesia 91473218 R 20.3 LLQ from Surgical wound. Not severe. Disorder of skin 7360230 5 L98.9 unusual presentati on of skin of back. WIll check for autoimmune disease and refer to dermatolog y. [id number] Yves Dimas MD [facility] ([facility]) [address] [place] [address] 5 11/21/2022 14:36:35 11/30/2022 14:58:13 Nausea 602549688 R11.0 Acute uppe r respiratory infection 98620939 J06.9 Testing was negative. Likely upper respirator y infection. Recommend fluids, rest, and over-the-c ounter medication for symptom management . Anticipate this will improve over the next 7 to 10 days. [id number] Ciro Mak MD [facility] ([facility]) [address] [place] [address] 5 01/16/2023 16:02:07 01/16/2023 18:11:25 Pain of right ankle joint 1470176342 3961224 M25.571 re took xray of foot due to increased pain to make sure an occult fracture was not missed. Gastroesop hageal reflux disease 141919176 K21.9 Nausea and vomiting 1692 1999 R11.2 [id number] Ciro Mak MD [facility] ([facility]) [address] [place] [address] 5 02/16/2023 14:56:52 02/16/2023 16:01:58 Abdominal pain 58938571 R10.9 CT abdomen demonstate d moderate stool in colon and left ovarian cyst x 2. Cyst of left ovary 06032 32631 3680797 N83.202 Low back pain 218678841 M54.50 stable [id number] Ciro Mak MD [facility] ([facility]) [address] [place] [address] 5 05/07/2023 14:38:55 05/07/2023 16:31:02 Dysuria 04196885 R30.0 Recurrent urinary tract infection 187485659 N39.0 Pain of le ft knee joint 7028848768 00344 M25.786 [id number] GLENN GARCIA [facility] ([facility]) [address] [place] [address] 5 06/11/2023 15:20:14 06/12/2023 18:13:09 Pain of right hand 0196600665 19187 M79.641 Contusion of right hand 5635727777 7044395 S60.221A Xray negative. Modified volar splint applied in clinic today for comfort. Patient is to remove the splint 2-3 times a day and perform slow ROM exercises to the fingers. Discussed RICE.F/u in 5-7 days if symptoms persist for re-evaluat ion.Use tylenol/mo eddie for discomfort . [id number] Ciro Mak MD [facility] ([facility]) [address] [place] [id number] 5 06/12/2023 13:46:25 06/12/2023 16:44:34 Low back pain 086056053 M54.50 worsening. She is performing back exercises [...] flexor stretch and wall sit exercises. Pain of right hand 91885 15794 75729 M79.641 continue splinting for comfort and ice as needed. [id number] Ciro Mak MD [facility] ([facility]) [address] [place] [address] 5 07/02/2023 14:43:21 07/02/2023 15:25:48 Pain in pelvis 53101166 R10.2 Vaginitis 14673782 N76.0 Low back pain 063147864 M54.50 Chronic, She is continuing her low back exercises. Generalize d anxiety disorder 38757713 F41.1 [id number] Ihsan Mora DO [facility] ([facility]) [address] [place] [address] 5 07/30/2023 08:19:43 07/30/2023 08:41:27 Rib pain 306780615 R07.[address] of [address], but pain more severe than expected with high risk factors, will get xray. start tizanidine prn. Return to office with no improvemen t or any problems. Go to ER with severe worsening or severe problems. [id number] Ciro Mak MD [facility] ([facility]) [address] [place] [address]274[address] 5 08/08/2023 11:26:52 08/08/2023 12:35:04 History of pulmonary embolus 871706662 Z86.711 diagnosed last week. On Eliquis 10mg bid and will start 5mg bid next week. Pulmonary embolism with pulmonary infarction 5218389494 102 I26.99 small area of infarction left lung base. Hypercoagu lability state 54419974 D68.59 Appt. peding with hematologi st/oncolog ist for further evaluation of this. [id number] Ciro Mak MD [facility] ([facility]) [address] [place] [address]186[address] 5 09/17/2023 09:59:04 09/17/2023 11:14:13 Abdominal pain 38247732 R10.9 CT abdomen was negative Diarrhea 18335521 R19.7 possible C Diff Hematochezia 299348984 K 92.1 on anticoagul ants. Pulmonary embolism with pulmonary infarction 6896724411 102 I26.99 small area of infarction left lung base. Mixed anxi ety and depressive disorder 196300055 F41.8 Generalize d anxiety disorder 75276223 F41.1 [id number] GLENN GARCIA [facility] ([facility]) [address] [place] [address] 116[address] 5 10/10/2023 10:15:36 10/10/2023 11:14:07 Sore throat 655693511 J02.9 Acute laryngitis 8187516 J04.0 Push cold oral fluids including Popsicles. Alternate tylenol/mo eddie for fever or discomfort .May use throat lozenges, chlorasept ic spray, or saltwater gargles.If you develop worsening symptoms such as unable to swallow, persistant fever, or concerns arise then return for re-eval. [id number] Ciro Mak MD [facility] ([facility]) [address] [place] [address] 08047[address]793 5 10/15/2023 09:54:42 10/15/2023 10:52:42 Abdominal pain 50634581 R10.9 CT abdomen was negative Scheduled with Dr. Chamberlain for Colonoscop y and EGD at the end of October. Still some small amount of blood in stools. Allergic rhinitis 653601 04 J30.9 Gastroesop hageal reflux disease 091151228 K21.9 Hypercoagu lability state 12111238 D68.59 Pulmonary embolism with pulmonary infarction 7037768175 102 I26.99 [id number] Ciro Mak MD [facility] ([facility]) [address] [place] [address] 07971-502 5 11/06/2023 14:02:32 11/08/2023 11:28:33 Chronic diarrhea 135070241 K52.9 Colonoscop y to be done next week. Vesicular eruption 90441 008 R23.8 Possibly herpes vs just irritation from frequent diarrhea. [id number] Yvse Dimas MD [facility] ([facility]) [address] [place] [address] 45866-782 5 01/10/2024 13:17:29 01/10/2024 14:26:25 Viral gastroenteritis 278787787 A08.4 Likely exacerbate d from viral gastroente ritis. Less likely to be pancreatit is or something similar from her recent alcohol use. The patient primarily needs a refill on her Zofran which was done today. Encouraged the patient to continue with clear liquids and when feeling better to start bland diet. With PCP if symptoms are not improving. [id number] Ciro Mak MD [facility] ([facility]) [address] [place] [address] [id number] 5 01/16/2024 10:20:16 01/16/2024 16:16:10 Diarrhea 32341041 R19.7 Chronic C Diff. SHe has an appt. with an ID physician in January to work on her plan. Low back pain 007827449 M54.50 Chronic, She is continuing her low back exercises. Acute gastroenteritis 69 893220 K52.9 Acute sinusitis 44640374 J01.90 [id number] Ihsan Mora DO [facility] ([facility]) [address] [place] [address] 91819-955 5 05/26/2024 16:25:11 05/26/2024 17:22:02 Pain of right knee joint 9992296914 46632 M25.561 now chronic, since injury in feb 2024. xray today with no acute bony problems.c oncern for ligamental damage vs meniscal injury. pt to rest, ICE, start nsaids since she is not taking any. continue brace. f/u with pcp to consider further imaging vs PT vs ortho referral.c ounseled Cellulitis of right thumb 1183348844 7271539 L03.011 2/2 dog bite. will start abx, she is UTD on tetnus. .cx [id number] Ciro Mak MD [facility] ([facility]) [address] [place] [address] 83700[address] 5 05/28/2024 14:30:26 05/29/2024 08:37:16 Derangement of right knee 1749602677 7386127 M23.91 her knee pain has been persistant for 3 months since her injury. [id number] Ciro Mak MD [facility] ([facility]) [address] [place], [place] [address] 5 06/13/2024 15:39:48 06/13/2024 16:35:40 Bacterial urinary infection 614152694 N39.0 A49.9 4544639 Improved but switching antibiotic s due to bite. Cyst of left ovary 05694 23416 1528663 N83.202 362488 Rupture of anterior cruciate ligament of right knee 0840950531 2549170 S83.511D [id number] surgery scheduled in June. She is cleared for surgical repair of her knee. Dog bite - wound 4970910 05 W54.0XXA L08.9 0986540 MIld swelling and erythema of the thumb. [id number] Ciro Mak MD [facility] ([facility]) [address] [place] [address] 82706-043 5 09/12/2024 13:51:45 09/12/2024 14:33:06 Acute hepatitis C 586023483 B17.10 13717449 Diagnosed at [facility]. Genotype not done. Inflammato ry disease of liver 045551503 K75.9 15648 elevated LFT's from tylenol overuse with recent diagnosis of Hepatitis C. Was not evident one year ago with negative test in July,. Generalize d abdominal pain 453153462 R10.84 080380 RUQ and generalize d. 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 69515 [id number] Ciro Mak MD [facility] ([facility]) [address] [place] [address] 21577-936 5 11/14/2024 14:50:41 11/14/2024 16:00:08 Seizure 65190238 R56.9 44487 Acute hemo rrhagic gastritis 9042473 K29.01 38739541 Pain of mu ltiple joints 33088027 M25.50 215610 Generalize d anxiety disorder 55524297 F41.1 Iron defic iency anemia due to blood loss 379047730 D50.0 803772 [id number] GLENN GARCIA [facility] ([facility]) [address] [place] [address] 01/09/2025 17:36:42 01/09/2025 18:07:35 Acute folliculitis 539363891 L73.9 60209307 Health Concerns Section Related Observation LastModified by Organization Detai ls LastModified Time None Recorded Concern Status LastModified by Organization Details LastModified Time None Recorded Advance Directives Directive None Recorded Payers Insurance Date Sequence Insurance Name Policy Number Policy Tovar Covered Member ID Tovar Member ID Guarantor Name 01/09/2025 [place] Mary Nesbitt [id number] Mary Nesbitt 01/09/2025 [place] [facility] (INSTITUTIONAL) Mary Nesbitt [id number] Mary Nesbitt 01/09/2025 [facility] (MEDICAID HMO) Mary Nesbitt [id number] Mary Nesbitt 01/09/2025 1 [facility] (MEDICAID HMO) Mary Nesbitt [id number] Mary Nesbitt 05/26/2024 [facility] (MEDICAID HMO) Mary Nesbitt [id number] Mary Nesbitt Notes Date Note Type Note Provider Name and Address Organization Details Recorded Time 09/12/2024 text/html Went to ER on 09/06/24 and was admitted to ICU due to her liver enzymes were elevated.Was told at the hospital that she had Hep C. Would like to discuss. Ciro Mak MD [address] [place] [address], [phone], [facility], [place] 09/12/2024 14:32:01 10/03/2024 text/html Lower Urinary Tr act Symptoms (LUTS)Reported by PatientHPIFor associated symptoms, patient reportsabdominal pain,low back pain,diarrhea,nausea,v omiting, andnocturia 4 times a nightbut reportsno pelvic painandno flank pain. Was given Cipro for her UTI and is allergic to that, but was not given anything else for UTI.ER told her that she needed to be checked for CDIFF, due to her diarrhea.Would like to discuss HR today, was told by Dr. Madsen that she may need a sales driver due to high HR. Ciro Mak MD [address] [place] [address], [phone], [facility] 10/03/2024 12:17:50 11/14/2024 text/html Generalized Anxi ety DisorderReported by PatientHPIFor associated symptoms, patient reportsdifficulty concentrating,difficul ty controlling worry,excess anxiety,tachycardia, andhigh irritability. For severity, patient reportsmild. Had a seizure yesterday. Also had a scope done yesterday at [facility].She was told that she needed to have her RBCs checked out per hospital.Would like to discuss her sugar levels as well, her sugar was checked yesterday and it was 84 after eating lunch. Ciro Mak MD [address] [place] [address], [phone], [facility] 11/14/2024 15:57:59 01/09/2025 text/html Skin LesionRepor yogi by PatientHPIFor associated symptoms, patient reportsfever,lesions multiplying,fatigue, andmyalgia. For location, patient reportsaxillaandgroin. For quality, patient reportspainful,drainag e,growing __, andbecoming more symptomatic. For severity, patient reportsmoderate. For duration, patient reports3 weeks.ROS as noted in the HPI walk-in GLENN GARCIA [address] [place] [address], [phone], [facility] 01/09/2025 18:01:46 OBGyn Episode No OBEpisode recorded.
[2025-01-11 21:15] VITALS: BP 135/92; PULSE 105; RESP 16; TEMP 36.9; O2SAT 98; BMI 23.6
--- OUTSIDE RECORDS SUMMARY | 2025-01-11 21:15 | XMS_ITS | Clinical Summary ---
Author Organization [facility] Address [address] [place] [address] Care Team Providers Care Credit Union Teller Name Role Phone Joaquin Mak MD Primary Care Provider [phone] Allergies Active Allergy Reactions Criticality Noted Date [...] hours as needed for Nausea/Emesis . Active Active Problems Problem Noted Date Diagnosed Date Trichomoniasis 10/14/2024 Acute cystitis with hematuria 10/14/2024 History of endometriosis 05/17/2023 Ovarian cyst, left 05/17/2023 Anxiety state 11/24/2019 Dysthymic disorder 11/24/2019 Headache 11/24/2019 Bipolar affective 11/24/2019 Panic disorder 11/24/2019 Encounters Date Type Department Care Team Description 10/16/2024 Results Follow-Up [facility] Emergency Medicine [address] [place] [address] Pastora Chamberlain RN GC/CHLAMYDIA, UROGENITAL, URINE CULTURE 10/14/2024 1:54 PM CDT - 10/14/2024 5:32 PM CDT Emergency [facility] Emergency [facility] [address] [place] [address] Rafael De Luna MD Trichomoniasis (Primary Dx); Acute cystitis with hematuria Discharge Disposition: Home or Self Care 10/14/2024 Travel from Last 3 Months Family History Medical History Relation Name Comments Cancer Father Liver,kidney, b rain Diabetes Father Cancer Mother Throat and toun ge Relation Name Status Comments Father Mother Social History Tobacco Use Types Packs/Day Years Used Date Smoking Tobacco: Former Cigarettes 0 Q uit: 02/19/2018 Passive Smoke Exposure: Current Smokeless Tobacco: Never Tobacco Cessation:Counseling Given: Yes Alcohol Use Standard Drinks/Week Comments Not Currently 0 (1 standard drink = 0.6 oz pur e alcohol) [facility] Utilities Answer Date Recorded In the past 12 months has [employer], gas, oil, or water [employer] threatened to shut off services in your [...] week 05/17/2023 How often do you attend worship or taoist serv ices? 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 Gender Identity Not on file Sexual Orientation [...] SPECIMENS TESTED 1 10/14/2024 4:24 PM CDT [facility] OCCULT BLOOD #1 Negative Negative 10/14/2024 4:24 PM CDT [facility] OB #1, DATE/TIME COLLECTED 10/14/2024 @ 15:50 10/14/2024 4:24 PM CDT [facility] Stool STOOL SPECIMEN / Unknown Collection / Unknown 10/14/2024 3:50 PM CDT 10/14/2024 4:18 PM CDT us Rafael De Luna MD BODY FLUIDS AND STOOLS Final Re sult [facility] CLIA # [id number] [address] [place] [address] * C. DIFFICILE DETECTION (10/14/2024 3:50 PM CDT) Pathologist [facility] C DIFFICILE TOXIN NOT DETECTED Not Detected 10/14/2024 4:38 PM CDT [facility] Stool STOOL SPECIMEN / Unknown Collection / Unknown 10/14/2024 3:50 PM CDT 10/14/2024 4:18 PM CDT Narrative [facility] - 10/14/2024 4:38 PM CDT This assay tests for C. difficile Toxin A and/or Toxin B, by non-PCR methodology. us Rafael De Luna MD MICROBIOLOGY - GENERAL ORDERABL ES Final Result Performing Organization Address City/[facility]/ZIP Co de Phone Number [facility] CLIA # [id number] [address] [place] [address] [phone] * GC/CHLAMYDIA, UROGENITAL (10/14/2024 2:50 PM CDT) Pathologist [facility] CHLAMYDIA DNA AMPLIFICATION NOT DETECTED Not Detected 10/15/2024 7:04 PM CDT [facility] GC DNA AMPLIFICATION NOT DETECTED Not Detected 10/15/2024 7:04 PM CDT [facility] Urine (Urine, 1st catch) Collection / Unknown 10/14/2024 2:50 PM CDT 10/14/2024 3:26 PM CDT Narrative [facility] - 10/15/2024 7:04 PM CDT Results should not be used for the evaluation of suspected sexual abuse or for other medico-legal indications. The only legally accepted results are from culture. Results cannot be used to assess therapeutic success or failure since nucleic acids may persist following antimicrobial therapy. Rafael De Luna MD MICROBIOLOGY - GENERAL ORDERABL ES Final Result Performing Organization Address [facility]/ZIP Co de Phone Number [facility] CLIA # [id number] [address] [place] [phone] * (ABNORMAL) URINALYSIS MICROSCOPY ONLY (10/14/2024 2:50 PM CDT) Pathologist [facility] WBC UA 6-10(A) 0 - 2 /hpf 10/14/2024 3:11 PM CDT [facility] RBC UA 0-2 0 - 2 /hpf 10/14/2024 3:11 PM CDT [facility] BACTERIA UA 1+(A) Negative /hpf 10/14/2024 3:11 PM CDT [facility] EPITHELIAL CELLS, URINE 6-10(A) 0 - 5 /hpf 10/14/2024 3:11 PM CDT [facility] TRICHOMONAS Present(A ) Absent 10/14/2024 3:11 PM T [facility] Urine URINE SPECIMEN OBTAINED BY CLEAN CATCH PROCEDURE / Unknown Collection / Unknown 10/14/2024 2:50 PM CDT 10/14/2024 2:59 PM CDT Rafael De Luna MD URINE ORDERABLES Final Result [facility] CLIA # [id number] [address] [place] [address] * (ABNORMAL) URINALYSIS WITH REFLEX MICROSCOPIC (10/14/2024 2:50 PM CDT) COLOR UA Pale Yellow Pale to Dark Yellow 10/14/2024 3:11 PM T [facility] CLARITY UA Clear Clear 10/14/2024 3:11 PM T [facility] SPECIFIC GRAVITY UA 1.010 1.003 - 1.035 10/14/2024 3:11 PM T [facility] PH UA 7.0 5.0 - 8.0 10/14/2024 3:11 PM T [facility] LEUKOCYTE ESTERASE UA 1+(A) Negative 10/14/2024 3:11 PM T [facility] NITRITE UA Negative Negative 10/14/2024 3:11 PM T [facility] PROTEIN UA Negative Negative 10/14/2024 3:11 PM T [facility] GLUCOSE UA Negative Negative 10/14/2024 3:11 PM T [facility] KETONES UA Negative Negative 10/14/2024 3:11 PM T [facility] UROBILINOGEN UA 0.2 <2.0 mg/dL 3:11 PM T [facility] BILIRUBIN UA Negative Negative 10/14/2024 3:11 PM T [facility] BLOOD UA Negative Negative 10/14/2024 3:11 PM T [facility] Urine URINE SPECIMEN OBTAINED BY CLEAN CATCH PROCEDURE / Unknown Collection / Unknown 10/14/2024 2:50 PM CDT 10/14/2024 2:59 PM CDT us Rafael De Luna MD URINE ORDERABLES Final Result Performing Organization Address [facility] Co de Phone Number [facility] CLIA # [id number] [address] [place] [address] * URINE CULTURE (10/14/2024 2:50 PM CDT) CULTURE Polymicrobial growth consistent with normal urethral amador and/or colonizing bacteria 10/16/2024 12:38 PM CDT [facility] Urine URINE SPECIMEN OBTAINED BY CLEAN CATCH PROCEDURE / Unknown Collection / Unknown 10/14/2024 2:50 PM CDT 10/14/2024 3:26 PM CDT us Rafael De Luna MD MICROBIOLOGY - GENERAL ORDERABL ES Final Result Performing Organization Address [facility] Co de Phone Number [facility] CLIA # [id number] [address] [place] [address] [place], [place] [phone] * LACTIC ACID (10/14/2024 2:11 PM CDT) LACTIC ACID 1.3 <=2.0 mmol/L 10/14/2024 2:58 PM CDT [facility] Blood BLOOD SPECIMEN / Unknown Collection / Unknown 10/14/2024 2:11 PM CDT 10/14/2024 2:40 PM CDT us Rafael De Luna MD CHEMISTRY ORDERABLES Final Resu lt Performing Organization Address [facility]/ZIP Co de Phone Number [facility] CLIA # [id number] [address] [place] [address] [phone] * (ABNORMAL) CBC WITH DIFFERENTIAL (10/14/2024 2:11 PM CDT) [facility] WBC 7.8 4.0 - 10.0 K/uL 10/14/2024 2:44 PM [facility] RBC 3.94 3.93 - 5.22 M/uL 10/14/2024 2:44 PM [facility] HEMOGLOBIN 10.1(L) 11.2 - 15.7 g/dL 10/14/2024 2:44 PM [facility] HEMATOCRIT 33.1(L) 34.1 - 44.9 % 10/14/2024 2:44 PM [facility] MCV 84.0 79.4 - 94.8 fL 10/14/2024 2:44 PM [facility] MCH 25.6 25.6 - 32.2 pg 10/14/2024 2:44 PM [facility] MCHC 30.5(L) 32.2 - 35.5 g/dL 10/14/2024 2:44 PM [facility] RDW 15.6(H) 11.0 - 14.5 % 10/14/2024 2:44 PM [facility] RDW-STDEV 46.9 36.9 - 56.9 fL 10/14/2024 2:44 PM [facility] PLATELETS 374(H) 163 - 337 K/uL 10/14/2024 2:44 PM [facility] MPV 11.1 10.0 - 14.8 fL 10/14/2024 2:44 PM [facility] NEUTROPHILS 51 34 - 71 % 10/14/2024 2:44 PM [facility] LYMPHOCYTES 38 19 - 52 % 10/14/2024 2:44 PM [facility] MONOCYTES 8 5 - 13 % 10/14/2024 2:44 PM [facility] EOSINOPHILS 2 1 - 6 % 10/14/2024 2:44 PM [facility] BASOPHILS 1 0 - 1 % 10/14/2024 2:44 PM [facility] IMMATURE GRANULOCYTES 0 % 10/14/2024 2:44 PM CDT [facility] NEUTROPHIL ABSOLUTE 3.96 1.56 - 6.13 K/uL 10/14/2024 2:44 PM CDT [facility] LYMPHOCYTE ABSOLUTE 2.91 1.20 - 3.40 K/uL 10/14/2024 2:44 PM CDT [facility] MONOCYTE ABSOLUTE 0.62(H) 0.24 - 0.36 K/uL 10/14/2024 2:44 PM CDT [facility] EOSINOPHIL ABSOLUTE 0.16 0.04 - 0.36 K/uL 10/14/2024 2:44 PM CDT [facility] BASOPHILS ABSOLUTE 0.10(H) 0.01 - 0.08 K/uL 10/14/2024 2:44 PM CDT [facility] IMMATURE GRANULOCYTES ABSOLUTE 0.02 K/uL 10/14/2024 2:44 PM CDT [facility] Blood Collection / Unknown 10/14/2024 2:11 PM CDT 10/14/2024 2:40 PM CDT Rafael De Luna MD HEMATOLOGY ORDERABLES Final Res ult Performing Organization Address City/[facility]/ZIP Co de Phone Number [facility] CLIA # [id number] [address] [place] [address] * (ABNORMAL) PTT (10/14/2024 2:11 PM CDT) PTT 22.2(L) 25.1 - 35.4 seconds 10/14/2024 2:49 PM CDT [facility] Blood Collection / Unknown 10/14/2024 2:11 PM CDT 10/14/2024 2:40 PM CDT us Rafael De Luna MD HEMATOLOGY ORDERABLES Final Res ult [facility] CLIA # [id number] [address] [place] [phone] * SEDIMENTATION RATE (10/14/2024 2:11 PM CDT) ESR (SEDIMENTATION RATE) 11 0 - 20 mm/Hr 10/14/2024 2:53 PM CDT [facility] Blood Collection / Unknown 10/14/2024 2:11 PM CDT 10/14/2024 2:40 PM CDT Narrative [facility] - 10/14/2024 2:53 PM CDT Tube Lot: #[id number] Exp Date: 02/18/2026 QC1 LOT [id number] EXP.02/23/2025 QC2 LOT [id number] EXP.02/23/2025 us Rafael De Luna MD HEMATOLOGY ORDERABLES Final Res ult Performing Organization Address City/[facility]/ZIP Co de Phone Number [facility] [id number] [address] [place] [address] [phone] * PROTIME-INR (10/14/2024 2:11 PM CDT) PROTIME 12.8 12.1 - 14.3 Seconds 10/14/2024 2:49 PM CDT [facility] INR 1.0 0.9 - 1.1 10/14/2024 2:49 PM CDT [facility] Blood Collection / Unknown 10/14/2024 2:11 PM CDT 10/14/2024 2:40 PM CDT us Rafael De Luna MD HEMATOLOGY ORDERABLES Final Res ult [facility] CLIA # [id number] [address] [place] [address] * C-REACTIVE PROTEIN (10/14/2024 2:11 PM CDT) CRP <3.0 <5.0 mg/L 10/14/2024 2:5 8 PM CDT [facility] Blood Collection / Unknown 10/14/2024 2:11 PM CDT 10/14/2024 2:40 PM CDT us Rafael De Luna MD CHEMISTRY ORDERABLES Final Resu lt Performing Organization Address City/[facility]/ZIP Co de Phone Number [facility] CLIA # [id number] [address] [place] [phone] * MAGNESIUM LEVEL (10/14/2024 2:11 PM CDT) MAGNESIUM 2.1 1.6 - 2.6 mg/dL 10/14/2024 2:58 PM CDT [facility] Blood Collection / Unknown 10/14/2024 2:11 PM CDT 10/14/2024 2:40 PM CDT us Rafael De Luna MD CHEMISTRY ORDERABLES Final Resu lt Performing Organization Address [facility]/ZIP Co de Phone Number [facility] CLIA # [id number] [address] [place] [address]39 * (ABNORMAL) LIPASE (10/14/2024 2:11 PM CDT) LIPASE 70(H) 13 - 60 U/L 10/14/2024 2:58 PM CDT [facility] Blood Collection / Unknown 10/14/2024 2:11 PM CDT 10/14/2024 2:40 PM CDT us Rafael De Luna MD CHEMISTRY ORDERABLES Final Resu lt Performing Organization Address City/[facility]/ZIP Co de Phone Number [facility] CLIA # [id number] [address] [place] [address] [phone] * (ABNORMAL) COMPREHENSIVE METABOLIC PANEL (10/14/2024 2:11 PM CDT) SODIUM 139 136 - 145 mmol/L 10/14/2024 2:58 PM [facility] POTASSIUM 4.4 3.5 - 5.1 mmol/L 10/14/2024 2:58 PM [facility] CHLORIDE 105 98 - 107 mmol/L 10/14/2024 2:58 PM [facility] CO2 23 22 - 29 mmol/L 10/14/2024 2:58 PM [facility] CALCIUM 9.6 8.6 - 10.0 mg/dL 10/14/2024 2:58 PM [facility] BUN 16 6 - 20 mg/dL 10/14/2024 2:58 PM [facility] CREATININE 0.76 0.51 - 0.95 mg/dL 10/14/2024 2:58 PM [facility] GLUCOSE 80 74 - 99 mg/dL 10/14/2024 2:58 PM [facility] TOTAL PROTEIN 7.4 6.6 - 8.7 g/dL 10/14/2024 2:58 PM [facility] ALBUMIN 4.4 3.5 - 5.2 g/dL 10/14/2024 2:58 PM [facility] BILIRUBIN TOTAL 0.4 0.0 - 1.2 mg/dL 10/14/2024 2:58 PM [facility] ALKALINE PHOSPHATASE 117(H) 35 - 104 U/L 10/14/2024 2:58 PM [facility] AST 28 0 - 35 U/L 10/14/2024 2:58 PM [facility] ALT 23 0 - 35 U/L 10/14/2024 2:58 PM [facility] GFR >60 >=60 mL/min/1.7 3 sq meter 10/14/2024 2:58 PM [facility] Comment:eGFR calculated with 2020 CKD-EPI equation. Vegetarian diet, extremely high or low muscle mass, and may affect results. Cystatin C with Glomerular Filtration Rate is a suitable alternative for these patients. ANION GAP 11 5 - 20 mmol/L 10/14/2024 2:58 PM [facility] Blood Collection / Unknown 10/14/2024 2:11 PM CDT 10/14/2024 2:40 PM CDT us Rafael De Luna MD CHEMISTRY ORDERABLES Final Resu lt [facility] [id number] [address] [place] [address] [phone] from Last 3 Months Insurance [facility] [employer] MEDICAID Care Teams Credit Union Teller Relationship Specialty Start Date End Date Joaquin Mak MD [address] [phone] PCP - General Family Practice 12/29/19
--- OUTSIDE RECORDS SUMMARY | 2025-01-11 21:15 | XMS_ITS | Continuity of Care Document ---
Author Organization RILEY Hurtado [facility] Calvin Humphries, [facility] ([facility]) Address [address] [place] [address] Care Team Providers Care Stone Dresser Name Role Phone CIRO CORTÉS Primary Care Provider [phone] Assessment No assessment recorded. Plan of Treatment Reminders Order Date Submit Date Provider Last Modified By Organization Details Last Modified Time Details Appointments None recorded. Lab CBC 2024 025 [place] [facility], [address] [facility] [address], [place], [address], 16:14:51 CMP, serum or plasma 2024 025 [employer] [facility], [address] [place] [address], [facility] [address] [place], [address], 10:24:25 Referral None recorded. Procedures None recorded. Surgeries None recorded. Imaging None recorded. Medication Orders alprazolam 0.5 mg tablet 2024 025 [facility], [address] [place] [address], [address], 09:54:03 diclofenac sodium 75 mg tablet,michael yed release 2024 025 [facility], [address] [place], [address], 17:55:16 Patient TargetsNo targets recorded. Patient InstructionsNo instructions recorded. Reason for Referral None Reported. Results Created Date Observation Date Name Description Value Unit Range Abnormal Flag Note LastModifiedBy Organization Detail LastModifiedTime 11/26/1911/13/2024 upper endos copy (EGD) with colon oscop y (PROC ) No observ ation record ed. [email or web address] Not Available 11/26 17:02:19 Result Notes None recorded. Problems Name Problem SNOMED Code Status Onset Date Resolution Date Notes Provider Name and Address Organization Details Recorded Time Depressive disorder 60458200 Active 2022 [facility] 17:49:55 Migraine 03643095 Active 2022 MIGRAI NE; Impres comfort: daily migrai ne. [facility] 17:51:24 Chronic pain syndrome 620109929 Active 2022 GEO MORA [facility] 17:49:55 Major depressive disorder 502208085 Active 2022 GEO MORA [facility] 17:49:55 Bipolar disorder 53160367 Active 2022 GEO MEGAN [facility] 17:49:54 Essential hypertensio n 47109199 Active 2022 GEO MORA [facility] 17:49:55 Livedo reticularis 628797033 Active 2022 GEO MORA [facility] 17:49:54 Hyperesthes ia 03580097 Active 2022 GEO MORA [facility] 17:49:54 Gastroesoph ageal reflux disease 891838858 Active 2022 GEO MORAAZAR rubio, [facility] 17:49:54 Seizure disorder 824757226 Active 2022 GEO MORAAZAR rubio, [facility] 5 17:49:54 Cyst of left ovary 3914365794057 9108 Active 2022 Ciro Cortés MD [address] [place] [address], [address], [facility] 5 16:21:39 Generalized anxiety disorder 14863724 Active 2023 [facility]AAZAR [facility] 5 17:49:54 Pulmonary embolism with pulmonary infarction 7163871486666 Active 2023 [facility]O [facility]AAZAR [facility] 5 17:50:09 Hypercoagul ability state 87013180 Active 2023 GEO MORAAZAR rubio, [facility] 5 17:49:55 Chronic diarrhea 096624323 Active 2023 [facility] 5 17:49:54 Genital herpes simplex 24102549 Active 2023 GEO MORA [facility] 5 17:49:54 Derangement of right knee 2662386944572 9109 Active 2024 GEO rubio, [facility] 17:52:05 Bacterial urinary infection 620741015 Active 2024 Ciro Cortés MD [address] [place] [address], [address], [facility] 16:21:00 Rupture of anterior cruciate ligament of right knee 5633323844579 9103 Active 2024 Ciro Cortés MD [address] [place] [address], [address] [place] [address] 5, [facility] 16:22:23 Acute hepatitis C 572820086 Active 2024 Ciro Cortés MD [address] [place] [address] 5, [facility] 14:23:53 Inflammator y disease of liver 612354435 Active 2024 Ciro Cortés MD [address] [place] [address] 5, [facility] 14:24:06 Generalized abdominal pain 114042652 Active 2024 Ciro Cortés MD [address] [place] [address] 5, [facility] 14:25:57 Supraventri cular tachycardia 5924665 Active 2024 Ciro Cortés MD [address] [place] [address], [address] [place] [address] 5, [facility] 12:01:26 Acute diarrhea 292914016 Active 2024 Ciro Cortés MD [address] [place] [address] 5, [facility] 12:06:09 Iron deficiency anemia due to blood loss 997079372 Active 2024 Ciro Cortés MD [address] [place] [address], [facility] 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 Procedures Surgical History Date Name Laterality Status Provider Name and Address Organization Details Recorded Time [facility] 15:56:58 Tubal Ligation completed [facility] [place] 06/11/2023 15:57:02 [facility] 15:57:06 removal of displaced intrauterine contraceptive device completed [facility], [place] 06/11/2023 15:57:27 [facility]ian [facility] 15:57:42 Laparoscopy completed [facility] 06/11/2023 15:57:47 right oophorectomy completed Rody varner [facility] 10/10/2023 10:30:05 Imaging Results None recorded. Procedure Notes None recorded. Medical Equipment None Reported. Allergies Allergen ID Allergen Name Allergen Category Reaction Reaction Severity Criticality Documentation Date Start Date Code Code System Note Provider Name and Address Organization Details Recorded Time 178 amoxicill in medicatio n hives mild low 06/07/2022 723 RxNorm [facility] 4 15:52:07 1789 latex environme nt,medica tion hives mild low 06/07/2022 41435 91 RxNorm Wilma Pritchett [facility] 4 15:52:19 42574 methotrex ate medicatio n headache vomiting moderate mild low 11/21/2022 6851 RxNorm Wilma Pritchett [facility] 4 15:52:27 84812 methylpre dnisolone medicatio n tachycard ia moderate low 06/11/2023 6902 RxNorm Wilma Pritchett [facility] 4 15:54:04 65192 Cipro medicatio n chest pain Not available high 10/03/2024 53794 3 RxNorm SOB as well. [facility] 5 11:25:18 Medications Name Sig Start Date [...] 20 mg tablet daily 01/[address] Salvador; 0; Recorded 05/09/19 10:52AM by Geo Mora, [...] Available citalopra m daily 01/16 completed From [facility] [place]; 0; Recorded 05/09/19 10:54AM by Geo Mora, [...] completed Recorded 05/07/19 22 4:21PM by Ciro Cortés MD, Office Visit; Refill Quantity : 60; [...] the pharmaci st who fulfille d this [place] state standing order at [phone] active Not Available Not Available No t [...] Last Updated DateTime 149.86 cm 23.2 kg/m2 48687.1 2 g 97 % 67 /min 100/70 mm[Hg] GEO MORA [facility] 15:31:09 Social History Question Answer Notes LastModified by Organizat ion Details LastModified Time Tobacco Smoking Status Never Smoker Wilma Pritchett ramiro [facility] 06/11/2023 15:56:49 What Was The [...] Stones N Blood Diseases N Hyperthyroidism N Breast Cancer N Blood Transfusion N Hypothyroidism N Lung Disease N COPD N Depression Y Defects or Inherited Disease N Developmental or Behavioral Disorders N Breast Problem N Difficulty Swallowing N Anesthesia Complications N Meniere's disease N Anxiety Disorder Y Muscle, Joint, or Bone Problems N Vision or Eye Problems N Arthritis N Infertility N Polyps N Cancer N Stroke N Varicosities N Endometriosis N Bladder or Kidney Problems [...] N Heart Disease N Pulmonary Embolism N Chronic Ear Infections N Pre-Eclampsia N Hypertension Y Chicken Pox N Autism Spectrum Disorder (ASD) N Osteoporosis N Thrombophilias N Gynecological HistoryNo gynecological history recorded. Obstetrics History GPAL:G 0 P 0 0 0 0 Immunizations Vaccine Type Date Status Note Provider Nam e and Address Organization Details Recorded Time Tdap 3 completed GEO rubio, [facility] 02/16/2023 15:11:53 Influenza, split virus, trivalent, preservative 6 completed GEO rubio, [facility] 02/16/2023 15:11:53 Influenza, split virus, quadrivalent, preservative 9 completed GEO rubio [facility] 02/16/2023 15:11:52 Past Encounters Encounter ID Performer Location Encounter Start Date Encounter Closed Date Diagnosis/Indication Diagnosis SNOMED-CT Code Diagnosis ICD10 Code Diagnosis IMO Codes Diagnosis Note [id number] Ciro Cortés MD [facility] ([facility]) [address] [place] [address] 11/14/2024 14:50:41 11/14/2024 16:00:08 Seizure 53256244 R56.9 68925 Acute hemo rrhagic gastritis 2996881 K29.01 34798576 Pain of mu ltiple joints 31585845 M25.50 090825 Generalize d anxiety disorder 14167603 F41.1 Iron defic iency anemia due to blood loss 758292535 D50.0 640058 Health Concerns Section Related Observation LastModified by Organization Detai ls LastModified Time None Recorded Concern Status LastModified by Organization Details LastModified Time None Recorded Payers Encounter Date Sequence Insurance Name Policy Number Policy Tovar Covered Member ID Tovar Member ID Guarantor Name 11/14/2024 1 [employer] [facility] (MEDICAID HMO) Mary Nesbitt [id number] Mary Nesbitt Notes Date Note Type Note Provider Name and Address Organization Details Recorded Time 11/14/2024 text/html Generalized Anxi ety DisorderReported by PatientHPIFor associated symptoms, patient reportsdifficulty concentrating,difficul ty controlling worry,excess anxiety,tachycardia, andhigh irritability. For severity, patient reportsmild. Had a seizure yesterday. Also had a scope done yesterday at [facility].She was told that she needed to have her RBCs checked out per hospital.Would like to discuss her sugar levels as well, her sugar was checked yesterday and it was 84 after eating lunch. Ciro Cortés MD [address] [place] [address], [phone], [facility], [place] 11/14/2024 15:57:59 OBGyn Episode No OBEpisode recorded.
--- OUTSIDE RECORDS SUMMARY | 2025-01-11 21:15 | XMS_ITS | Clinical Summary ---
Author Organization [facility] Address [address] [place] [address] Care Team Providers Care Crop Adjuster Name Role Phone Joaquin Mak MD Primary Care Provider [phone] Allergies Active Allergy Reactions Criticality Noted Date [...] Smoking Tobacco: Former Cigarettes 0 Q uit: 2019 Comments No Sex and Gender Information Value Date Recorded Sex Assigned at Not on file Legal Sex Female 8:51 AM CDT Gender Identity Not on file Sexual Orientation Not on file Last Filed Vital Signs Vital Sign Reading Time Taken Comments Blood Pressure 119/75 12/29/2019 3:14 PM [employer]PERATOR [employer] Pulse 75 12/29/2019 3:14 PM [employer] OPERATOR [employer] Temperature 37.2 C (98.9 F) 12/29/2019 2:03 PM WE[employer] DRILL OPERATOR [employer] Respiratory Rate 18 12/29/2019 3:14 PM WE[employer] DRILL OPERATOR [employer] Oxygen Saturation 99% 12/29/2019 3:14 PM WELL DRILL OPERATOR [employer] Inhaled Oxygen Concentration - - Weight 47.6 kg (105 lb) 12/29/2019 2:03 PM WE[employer] DRILL OPERATOR [employer] Height 149.9 cm (4' 11 ) 12/29/2019 2:03 PM WE[employer]RILL OPER[employer] Body Mass Index 21.21 12/29/2019 2:03 PM WELL DRILL OPERATOR [employer] Plan of Treatment Health Maintenance Due Date Last Done Comments DTAP/TDAP/TD VACCINES (1 - Tdap) 2008 HEPATITIS B VACCINES (1 of 3 - 19+ 3-dose series) 09/19 HPV/Cotest (21-29) 2010 HPV VACCINES (1 - 3-dose SCDM series) 2016 CERVICAL CANCER SCREENING 10/03/2019 HPV/Cotest (30-65) 10/03/2019 PAP SMEAR 10/03/2019 INFLUENZA VACCINE (#1) [address] [place] [address] [phone] Care Teams Crop Adjuster Relationship Specialty Start Date End Date Joaquin Mak MD [address] [address] PCP - General Family Practice 12/29/19
[2025-01-11 21:21] VITALS: BP 152/104; PULSE 98; O2SAT 98
--- NOTE | 2025-01-11 21:36 | USR_ITS ---
PROCEDURE INFORMATION: Exam: US Duplex Right Lower Extremity Veins, Limited Exam date and time: 01/11/2025 11:02 PM Age: 34 years old Clinical indication: Pain; Leg, lower; Right; Prior surgery; Surgery date: 6+ months; Surgery type: Unsure of dates- history of acl repair this year. ; Additional info: Prior dvt pe, atraumatic rle pain TECHNIQUE: Imaging protocol: Real-time duplex ultrasound of the right extremity with 2-D may scale, color Doppler flow and spectral waveform analysis including responses to compression and other maneuvers (when performed) with image documentation. Limited exam was focused on the right lower extremity veins. COMPARISON: US pelvic complete* [id number] 02/10/2023 1:03 AM FINDINGS: Right deep veins: Unremarkable. The common femoral, femoral, proximal profunda femoral and popliteal veins are patent without thrombus. Normal Doppler waveforms. Normal compressibility and/or augmentation response. Superficial veins: Greater saphenous vein at the saphenofemoral junction is patent without thrombus. Soft tissues: Unremarkable. US/[place] [id number] IMPRESSION: No findings of acute deep venous thrombosis.
--- NOTE | 2025-01-11 21:36 | XRR_ITS ---
PROCEDURE INFORMATION: Exam: XR Right Tibia and Fibula Exam date and time: 01/11/2025 9:55 PM Age: 34 years old Clinical indication: Lower leg; Prior surgery; Surgery date: 6+ months; Surgery type: Knee ligament reconstruction; C/O pain and swelling to right lower extremity. ; Additional info: Prev knee construction, R calf/knee pain tightness TECHNIQUE: Imaging protocol: Radiologic exam of the right tibia and fibula. Views: 2 views. COMPARISON: CR XR knee RT 1-2V [id number] 08/01/2024 8:06 PM FINDINGS: Bones/joints: Changes of prior ACL reconstruction are noted at the knee. No acute fracture or destructive lesion. No significant arthropathy at the knee or ankle. No visible knee joint effusion. Soft tissues: Normal. XR/XR tibia fibula RT 2V [id number] IMPRESSION: No acute bony abnormality. Changes of prior ACL reconstruction are noted.
--- NOTE | 2025-01-11 21:38 | ED_ITS ---
HPI - Extremity Problem General: Chief complaint: Extremity Injury, Lower Stated complaint: Possible Staph\Rt Leg Swollen Time Seen by Provider: 01/11/25 21:12 History of Present Illness: Patient is a 34-year-old female with a history of rheumatoid arthritis (previously on Humira, discontinued 1.5 years ago), prior DVT and PE and prior knee surgery with ACL reconstruction earlier this year who presents with acute onset of right knee and leg swelling over the past two days. The knee pain is severe and throbbing, she feels like her calf is tight, no recent travel, not on hormonal replacement. Her previous DVT was thought to be provoked because she was on Humira, is not on this anymore, is not on anticoagulation. She was supposed to start on antibiotics for cellulitis but has not been able to pick them up yet, areas of concern are her lower abdominal, groin region, has no urinary changes or vaginal discharge. Associated symptoms: Reports rash Related Data Home Medications ?Medication ?Instructions ?Recorded ?Confirmed alprazolam 0.25 mg tablet 0.25 mg PO TID PRN Anxiety 0 08/06/23 12/03/24 topiramate 200 mg tablet 200 mg PO BID 02/21/2412/03 glecaprevir 100 mg-pibrentasvir 40 3 tab PO DAILY 10/2112/03/24 mg tablet (Mavyret) loratadine 10 mg tablet 10 mg PO DAILY 11/10/2411/19 metoprolol tartrate 25 mg tablet 25 mg PO BID 11/10/24 12/03/24 Previous Rx's ?Medication ?Instructions ?Recorded hydrocodone 5 mg-acetaminophen 325 1 tab PO Q6H PRN pa in #30 tabs 07/16/24 mg tablet gabapentin 300 mg capsule 300 mg PO QID 30 days #120 c aps 09/09/24 ondansetron 4 mg disintegrating 4 mg PO TID PRN Nausea And 09/14/24 tablet Vomiting #14 tabs promethazine 25 mg rectal 25 mg UT Q6H PRN nausea and 09/26/24 suppository vomiting #12 ea ondansetron 8 mg disintegrating 8 mg PO Q6H #14 tabs 0 10/05/24 tablet pantoprazole 40 mg tablet,delayed 40 mg PO DAILY #40 t abs 10/28/24 release (Protonix) ondansetron 4 mg disintegrating 4 mg PO TID PRN nausea and 12/08/24 tablet vomiting #30 tabs cyclobenzaprine 10 mg tablet 10 mg PO TID PRN muscle s pasm #20 01/11/25 tabs promethazine 25 mg tablet 25 mg PO TID PRN nausea #14 tabs 01/11/25 Allergies Allergy/AdvReac Type Severity Reaction Status Date / Time methylprednisolone Allergy Severe ALGY-Anaphy Verified 12/03/24 15:24 laxis Latex, Natural Rubber Allergy Intermediate rash, hives Verified 12/03/24 15:24 amoxicillin Allergy ALGY-Hives Verified 12/03/24 15:24 cefdinir Allergy Unknown Verified 12/03/24 15:24 methotrexate AdvReac Intermediate migraines, Verified 12/03/24 15:24 N/V Review of Systems General: Reports: 10 or more systems reviewed and unremarkable except in HPI and below Musc: Reports: extremity pain and extremity swelling Skin/Breast: Reports: rash PFSH ED PFSH: Medical History (Updated 01/11/25 @ 23:30 by Tommie De La Cruz DO) Bipolar disorder, unspecified Family history of colon cancer Bilateral pulmonary embolism Vapes nicotine containing substance Seizures Hx of migraines Ovarian mass, right Family history of psoriasis in father High risk medication use Inflammatory back pain Inflammatory arthritis Psychiatric care Other penitentiary (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 Mosher at [facility] History of tubal ligation 12/2015- per Dr. Mosher at [facility] H/O removal of cyst [address] Mosher Family History Mother Stroke Hyperlipidemia Family history of thyroid problem Hypertension Cancer of tongue Father Degenerative disc disease Diabetes Unknown Breast cancer maternal great aunt Grandmother Ovarian cancer maternal Uterine cancer maternal Other Cancer Chronic kidney disease (CKD) Rheumatoid arthritis Denies family history of Lupus Social History Smoking and tobacco/nicotine status: never used tobacco/nicotine Second hand smoke exposure: No Alcohol intake: never Substance/Drug Use: never Physical Exam Narrative: EXAM NARRATIVE: Patient well-appearing, nontoxic, afebrile, vital signs stable on arrival, no acute distress. Right lower extremity with no obvious deformity, no overlying skin changes, mild tenderness diffusely to right patella, right calf, mild diffuse tenderness, no overlying bruising or erythema, normal range of motion at right knee and right ankle joint, negative ankle squeeze, 5 out of 5 motor and sensation, 2+ DP and PT pulse. Area of cellulitis to lower abdomen, upper groin area, 2 small areas of circular erythema with slight raised lesion, no fluctuance, no spontaneous drainage. GCS 15, breathing comfortably on room air, saturating well, abdomen soft nontender nondistended. Course Vital Signs: Vital signs: Vital Signs Temperature 98.5 F 01/11/25 21:15 Pulse Rate 90 01/11/25 23:40 Respiratory Rate 16 01/11/25 23:05 Blood Pressure 96/72 01/11/25 23:40 Pulse Oximetry 97 01/11/25 23:40 Oxygen Delivery Me thod Room Air 01/11/25 21:21 MDM - Extremity (Nontraumatic) Medical Decision Making -ddx: DVT, cellulitis, MSK sprain, fracture, dislocation, postsurgical complication - Patient with 2 days of atraumatic right calf pain, in setting of previous DVTs and PEs although they were thought to be provoked, will repeat DVT ultrasound, get x-rays of her knee, tib-fib, provide symptom control and reassess. - Patient with negative x-rays for any patellar/lower leg fracture or dislocation, normal postsurgical changes, DVT ultrasound negative for any VTE but did see a small amount of physiologic fluid, possibly postsurgical and chronic in nature. Patient felt improved with the above medications, repeat MSK exam unchanged, 5 out of 5 motor and sensation, compartments soft, 2+ DP and PT pulse, able to bear weight and ambulate without issue so patient then able to be discharged in stable condition with supportive care recommendations for her minor swelling, muscle relaxant prescribed, discharged in stable condition with advised to follow-up with PCP in a week, strict return precautions given. Lab Data Radiology Impressions Tibia/Fibula X-Ray 01/11/25 21:36 IMPRESSION: No acute bony abnormality. Changes of prior ACL reconstruction are noted. Venous Duplex 01/11/25 21:36 IMPRESSION: No findings of acute deep venous thrombosis. All radiology interpretation(s) finalized by discharge Discharge Plan Discharge Patient Disposition: Home Clinical Impression: Pain and swelling of lower leg, Nausea Condition: Stable Prescriptions: New promethazine 25 mg tablet 25 mg PO TID PRN (Reason: nausea) Qty: 14 0RF cyclobenzaprine 10 mg tablet 10 mg PO TID PRN (Reason: muscle spasm) Qty: 20 0RF No Action topiramate 200 mg tablet 200 mg PO BID hydrocodone-acetaminophen 5-325 mg tablet 1 tab PO Q6H PRN (Reason: pain) Qty: 30 0RF gabapentin 300 mg capsule 300 mg PO QID 30 Days Qty: 120 3RF ondansetron 4 mg tablet,disintegrating 4 mg PO TID PRN (Reason: Nausea And Vomiting) Qty: 14 0RF promethazine 25 mg suppository 25 mg UT Q6H PRN (Reason: nausea and vomiting) Qty: 12 0RF pantoprazole [Protonix] 40 mg tablet,delayed release (DR/EC) 40 mg PO DAILY Qty: 40 0RF Rx Instructions: 1 p.o. twice daily x 10 days and 1 p.o. daily ondansetron 4 mg tablet,disintegrating 4 mg PO TID PRN (Reason: nausea and vomiting) Qty: 30 0RF alprazolam 0.25 mg tablet 0.25 mg PO TID PRN (Reason: Anxiety) ondansetron 8 mg tablet,disintegrating 8 mg PO Q6H Qty: 14 0RF Rx Instructions: Take 1/2-1 tab every 6 hours as needed for nausea and vomiting loratadine 10 mg tablet 10 mg PO DAILY metoprolol tartrate 25 mg tablet 25 mg PO BID Mavyret 100-40 mg tablet 3 tab PO DAILY Discharge Orders: Discharge ED (Routine); Ordered 01/11/25 Ordered By: Tommie De La Cruz Referrals: Joaquin Mak MD [Primary Care Provider, Family Practice] Discharge Diet: Usual diet Discharge Activity: Resume usual activity Patient Instructions: Opioid Safety, Pain Management, Patient Portal & Ben Instructions Activity Restrictions/Additional Instructions: You were seen for your right leg pain and swelling, you were evaluated with x- rays and an ultrasound which were ultimately reassuring for no blood clot, fracture, dislocation or other emergent concerns at this time, but did see some persistent fluid that might be postsurgical and chronic in nature causing her symptoms. For any muscle spasms, use the Flexeril, 10 mg every 8 hours as needed. You can continue to alternate ibuprofen 400 mg and Tylenol 650 mg every 4 hours as needed on top of this. Keep the leg elevated when at rest to help with the swelling and extra fluid, use ice packs 20 minutes at a time alter nating with heating pads every few hours as well. For the nausea, your Phenergan has been refilled. Follow-up with your primary care physician in a week's time if your pain and swelling stay persistent. Return to the ED with severe worsening of the pain or swelling, redness or warmth at the site, inability to walk, severe numbness or tingling in the leg, any other emergent concerns. Stand Alone Forms: Work/School Release Print Language: Spanish Coding Level of Care Code ED Card Processing Clerk for Mark Berg
[2025-01-11] MEDS: ondansetron 2 mg/ML SDV 2 mL 4 MG IM (21:59)
[2025-01-11] MEDS: morphine 4 mg/mL SDV 1 mL IM (21:59)
[2025-01-11] MEDS: metoclopramide 5 mg/mL SDV 2 mL 10 MG IM (22:52)
[2025-01-11 23:05] VITALS: RESP 16; O2SAT 96
[2025-01-11] MEDS: oxyCODONE 5 mg IR Tab/Cap PO (23:05)
[2025-01-11 23:40] VITALS: BP 96/72; PULSE 90; O2SAT 97
== END 2025-01-11 23:41 | disposition home or self-care (01) ==
PROVIDERS: Emergency Provider Student in an Organized Health Care Education/Training Program; PCP Family Medicine
DX: M25.561 Pain in right knee (principal); M25.461 Effusion, right knee; R11.0 Nausea
CPT/HCPCS: 73590; 93971; 96372; 99284; J1885; J2270; J2405; J2765; J9999

== ENCOUNTER 2025-01-17 08:46 | Emergency (ER) | payer MEDICAID, SELFPAY ==
--- OUTSIDE RECORDS SUMMARY | 2023-07-18 03:00 | XMS_ITS ---
Author Organization [facility] Address [address] [place] [address] Care Team Providers Care Private Security Guard Name Role Phone Joaquin Mak Primary Care Provider UnavailDannie Schmidt JR Unavailable [phone] Migration, Provider Unavailable Unavailable REASON FOR VISIT EMR-Ellis Vital Signs Height 59.00 in 07/18/2023 Weight 112.00 lbs 07/18/2023 BMI 23 kg/m2 07/18/2023 Height-cm 149.86 cm 07/18/2023 Weight-kg 50.91 kg 07/18/2023 Encounters Encounter Location Date Provider Diagnosis Migrated_Facility 0 0 07/18/2023 Provider Migration Chronic pain syndrome G89.4 ; Sacroiliitis, not elsewhere classified M46.1 ; Spondylosis without myelopathy or radiculopathy, lumbosacral region M47.817 ; Other intervertebral disc degeneration, 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 ; Other intervertebral disc degeneration, lumbar region M51.36 ; Unspecified abnormalities of gait and mobility R26.9 and skilled nursing (current) use of opiate analgesic Z79.891 Assessments Encounter Date Diagnosis (ICD Code) Assessment Notes Treatment Notes Treatment Clinical Notes Section Notes 07/18/2023 Chronic pain syndrome (ICD-10 - G89.4) 07/18/2023 Sacroiliitis, not elsewhere classified (ICD-10 - M46.1) 07/18/2023 Spondylosis without myelopathy or radiculopathy, lumbosacral region (ICD-10 - M47.817) 07/18/2023 Other intervertebral disc degeneration, thoracic region (ICD-10 - M51.34) 07/18/2023 Other intervertebral disc degeneration, lumbar region (ICD-10 - M51.36) 07/18/2023 Unspecified abnormalities of gait and mobility (ICD-10 - R26.9) 07/18/2023 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 Assessment: * Assessment: 1. C hronic pain syndrome - G89.4 2 . S acroiliitis, not elsewhere classified - M46.1 3 . S pondylosis without myelopathy or radiculopathy, lumbosacral region - M47.817 4 . O ther intervertebral disc degeneration, thoracic region - M51.34 5 . O ther intervertebral disc degeneration, lumbar region - M51.36 ? 6 . U nspecified abnormalities of gait and mobility - R26.9 7 . L jani term (current) use of opiate analgesic - Z79.891 Billing Information: * Visit Code: 22852 Office Visit, Est Pt., Level 4. * Electronic signature of Prov ider Migration on 01/17/2025 at 08:54 AM NATURAL RESOURCE SPECIALIST Sign off status: Pending * Provider: Yoli spencemitchellrosa Migration Date: 0 07/18/2023 Generated for Kiera piña/Yashira/Georgesmitting on: 03/19/2024 08:54 AM NATURAL RESOURCE SPECIALIST
--- OUTSIDE RECORDS SUMMARY | 2023-12-15 03:00 | XMS_ITS ---
Author Organization [facility] Address [address] [place] [address] Care Team Providers Care Rivet Hammer Machine Operator Name Role Phone ObdulioJoaquin Primary Care Provider Unavailabl e Dannie Bui JR Unavailable [phone] Migration, Provider Unavailable Unavailable REASON FOR VISIT EMR-Ellis Encounters Encounter Location Date Provider Diagnosis Migrated_Facility 0 0 12/15/2023 Provider Migration Plan Of Treatment Medication Medication Name Sig Start Date Stop Date Notes Acetaminophen-Codeine 300-30 MG Oral Tablet 1 Tablet every 6 hours - Do Not Exceed 4 Tablets Per Day. 08/17/2023 09/16/2023 *Reorder from [facility] for eRx and Interaction Alerts* traMADol HCl 50 MG Tablet 1 Tablet every 6 hours PRN Oral 05/24/2023 06/23/2023 Progress Notes * NESBITTSanjeevMary ADOB:[birth year] (34 yo F)Acc No.[id number]:12/15/2023 Patient: Mary POWERS :1990 A ge:33 Y S ex:Female Address:[address] [place] [address], [phone] * Refills Stop traMADol HCl Tablet, 50 MG, Oral, 1 Tablet every 6 hours PRN Stop Acetaminophen-Codeine 300-30 MG Oral Tablet, 1 Tablet every 6 hours - Do Not Exceed 4 Tablets Per Day. Subjective: * Chief Complaints: * E MR-Ellis * * Date:
--- OUTSIDE RECORDS SUMMARY | 2023-12-16 03:00 | XMS_ITS ---
Author Organization [facility] Address [address] [place] [address] Care Team Providers Care Label Printer Name Role Phone Joaquin Mak Primary Care Provider Dannie Alejandro JR [phone] Migration, Provider Unavailable Unavailable Allergies Allergen (clinical drug ingredient) Drug/Non Drug Allergy documented on EMR Reaction Allergy Type Onset Date Status Information temporarily unavailable Amoxicillin Hives Drug Allergy Active Information temporarily unavailable Latex Rash Allergy Active REASON FOR VISIT EMR-Ellis Medications Medication SIG (Take, Route, Frequency, Duration) Notes Start Date End Date Status Topiramate *[facility]* Active Gabapentin *[facility]* Active Vitamin D3 *[facility]* Active Leflunomide *[facility]* Active tramadol *Reorder from [facility] for eRx and Interaction Alerts* Active Social History Social History Additional Details Category Social Info Options Details Migrated Social History Migrated Social History Alcoholic beverages? - No, Applying for disability? - Yes, Currently on disability? - No, Drug or substance abuse? - No, Marital Status - , Nonprescription drug use? - No, Participation in detoxification or rehabilitation - No, Smoking - No, Working currently? - No Encounters Encounter Location Date Provider Diagnosis Migrated_Facility 0 0 12/16/2023 Provider Migration Plan Of Treatment No Information Progress Notes * Mary NESBITT ADOB:[birth year] (34 yo F)Acc No.[id number]:12/16/2023 Patient: Mary POWERS :1990 A ge:33 Y S ex:Female Address:[address] [place] [address], [phone] Subjective: * Chief Complaints: * E MR-Ellis * Surgical History: Gynecological surgeries * Family History: M igrated Family History: : Cancer, c hronic pain, D iabetes, H eart disease, p sychiatric problems, R heumatoid arthritis, S troke. * Social History: M igrated Social History: M igrated Social History: Alcoholic beverages? - No, A pplying for disability? - Yes, C urrently on disability? - No, D rug or substance abuse? - No, M arital Status - , N onprescription drug use? - No, P articipation in detoxification or rehabilitation - No, S moking - No, W orking currently? - No. * Medications: T akingtramadol , Notes to Pharmacist: *Reorder from [facility] for eRx and Interaction Alerts*Gabapentin , Notes to Pharmacist: *Pick strength-form from [facility] for eRX*Topiramate , Notes to Pharmacist: *Pick strength-form from [facility] for eRX*Vitamin D3 , Notes to Pharmacist: *Pick strength-form from [facility] for eRX*Leflunomide , Notes to Pharmacist: *Pick strength-form from [facility] for eRX*Taking tramadol , Notes to Pharmacist: *Reorder from [facility] for eRx and Interaction Alerts*Taking Gabapentin , Notes to Pharmacist: *Pick strength-form from [facility] for eRX*Taking Topiramate , Notes to Pharmacist: *Pick strength-form from [facility] for eRX*Taking Vitamin D3 , Notes to Pharmacist: *Pick strength-form from [facility] for eRX*Taking Leflunomide , Notes to Pharmacist: *Pick strength-form from [facility] for eRX* * Allergies: L atex: Rash - AllergyAmoxicillin: Hives - Allergy * * Date:
[2025-01-17 08:53] VITALS: BP 111/96; PULSE 108; RESP 15; TEMP 37.1; O2SAT 100; BMI 24.0
--- OUTSIDE RECORDS SUMMARY | 2025-01-17 08:55 | XMS_ITS | Clinical Summary ---
Author Organization [facility] Address [address] [place] [address] Care Team Providers Care Paper Inspector Name Role Phone Joaquin Mak MD Primary Care Provider [phone] Allergies Active Allergy Reactions Criticality Noted Date [...] Comments Blood Pressure 119/75 12/29/2019 3:14 PM EASEMENT MAN Pulse 75 12/29/2019 3:14 PM EASEMENT MAN Temperature 37.2 C (98.9 F) 12/29/2019 2:03 PM EASEMENT MAN Respiratory Rate 18 12/29/2019 3:14 PM EASEMENT MAN Oxygen Saturation 99% 12/29/2019 3:14 PM EASEMENT MAN Inhaled Oxygen Concentration - - Weight 47.6 kg (105 lb) 12/29/2019 2:03 PM EASEMENT MAN Height 149.9 cm (4' 11 ) 12/29/2019 2:03 PM EASEMENT MAN Body Mass Index 21.21 12/29/2019 2:03 PM EASEMENT MAN Plan of Treatment Health Maintenance Due Date Last Done Comments DTAP/TDAP/TD VACCINES (1 - Tdap) 2008 HEPATITIS B VACCINES (1 of 3 - 19+ 3-dose series) 09/19 HPV/Cotest (21-29) 2010 HPV VACCINES (1 - 3-dose SCDM series) 2016 CERVICAL CANCER SCREENING 10/03/2019 HPV/Cotest (30-65) 10/03/2019 PAP SMEAR 10/03/2019 INFLUENZA VACCINE (#1) 2024 Insurance Care Teams Paper Inspector Relationship Specialty Start Date End Date Joaquin Mak MD [address] [address] PCP - General Family Practice 12/29/19
--- OUTSIDE RECORDS SUMMARY | 2025-01-17 08:55 | XMS_ITS | Clinical Summary ---
Author Organization [facility] Address [address] [place] [address] Care Team Providers Care Production Supervisor Name Role Phone Joaquin Mak MD Primary Care Provider [phone] Allergies Active Allergy Reactions Criticality Noted Date [...] 11/24/2019 Bipolar affective 11/24/2019 Panic disorder 11/24/2019 Family History Medical History Relation Name Comments [...] drink = 0.6 oz pur e alcohol) [facility] Utilities Answer Date Recorded In the past 12 months has th e electric, gas, oil, or water company threatened to shut off services in your [...] week 05/17/2023 How often do you attend yazidi or religion serv ices? Never 05/17/2023 Do you belong to any clubs o r organizations such as yazidi groups, unions, fraternal or athletic groups, or [...] on file Legal Sex Female 11:32 PM [employer] Gender Identity Not on file Sexual Orientation [...] (2 - Td or Tdap) 09/11/2032 Insurance [facility] [employer] MEDICAID Care Teams Production Supervisor Relationship Specialty Start Date End Date Joaquin Mak MD [address] [id number] PCP - General Family Practice 12/29/19
--- OUTSIDE RECORDS SUMMARY | 2025-01-17 08:55 | XMS_ITS | Continuity of Care Document ---
Author Organization [facility] Calvin Humphries, [facility] ([facility]) Address [address] [place] [address] Care Team Providers Care Manager Telecom Name Role Phone CIRO MAK Primary Care Provider Assessment No assessment recorded. Plan of Treatment Reminders Order Date Submit Date Provider Last Modified By Organization Details Last Modified Time Details Appointments None recorded. Lab None recorded. Referral None recorded. Procedures None recorded. Surgeries None recorded. Imaging None recorded. Medication Orders Bactrim DS 800 mg-160 mg tablet 2024 025 [facility], [address] [place] [address], [address], 5 15:13:08 mupirocin 2 % topical ointment 2024 025 [facility], [address] [place] [address], [address], 5 15:13:08 Patient TargetsNo targets recorded. Patient InstructionsNo instructions recorded. Reason for Referral None Reported. Problems Name Problem SNOMED Code Status Onset Date Resolution Date Notes Provider Name and Address Organization Details Recorded Time Depressive disorder 92745077 [facility] 2022 [facility] 17:[facility] Migraine 96381710 Active 2022 MIGRAI NE; Impres comfort: daily migrai ne. GEO rubio [facility] 5 17:51:24 Chronic pain syndrome 890982358 Active 2022 GEO MORAAZAR rubio, [facility] 5 17:49:55 Major depressive disorder 669309846 Active 2022 GEO MORA null, [facility] 5 17:49:55 Bipolar disorder 37905347 Active 2022 GEO MORA null, [facility] 5 17:49:54 Essential hypertensio n 78351275 Active 2022 GEO ruibo, [facility] 5 17:49:55 Livedo reticularis 860045422 Active 2022 GEO rubio, [facility] 5 17:49:54 Hyperesthes ia 54456518 Active 2022 GEO MORA null, [facility] 5 17:49:54 Gastroesoph ageal reflux disease 586068923 Active 2022 GEO MORA null, [facility] 5 17:49:54 Seizure disorder 037861296 Active 2022 GEO MORA null, [facility] 5 17:49:54 Cyst of left ovary 5872083910394 9108 Active 2022 Ciro Mak MD [address] [place] [address], [phone], [facility] 5 16:21:39 Generalized anxiety disorder 74304767 Active 2023 GEO MORA null, [facility] 5 17:49:54 Pulmonary embolism with pulmonary infarction 1513704065319 Active 2023 GEO MORA null, [facility] 17:50:09 Hypercoagul ability state 16421143 Active 2023 GEO MORA null, [facility] 17:49:55 Chronic diarrhea 201965190 Active 2023 GEO MORA null, [facility] 17:49:54 Genital herpes simplex 51657776 Active 2023 GEO MORA null, [facility] 17:49:54 Derangement of right knee 9115642537481 9109 Active 2024 GEO MORAAZAR rubio, [facility] 17:52:05 Bacterial urinary infection 045317851 Active 2024 Ciro Mak MD [address] [place] [address], [phone], [facility] 16:21:00 Rupture of anterior cruciate ligament of right knee 1885046173093 9103 Active 2024 Ciro Mak MD [address] [place] [address], [phone], [facility] 16:22:23 Acute hepatitis C 449976338 Active 2024 Ciro Mak MD [address] [place] [address], [phone], [facility] 14:23:53 Inflammator y disease of liver 621522328 Active 2024 Ciro Mak MD [address] [place] [address], [phone], [facility] 14:24:06 Generalized abdominal pain 237421261 Active 2024 Ciro Mak MD [address] [place] [address] 5, [facility] 14:25:57 Supraventri cular tachycardia 3943808 Active 2024 Ciro Mak MD [address] [place] [address] 5, [facility] 12:01:26 Acute diarrhea 245542783 Active 2024 Ciro Mak MD [address] [place] [address] 5, [facility] 12:06:09 Iron deficiency anemia due to blood loss 955363039 Active 2024 Ciro Mak MD [address] [place] [address] 5, [facility] 12:10:20 Allergic rhinitis caused by pollen 33695050 Active 2024 Ciro Mak MD [address] [place] [address] 5, [facility] 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 12:16:10 Seizure 26243065 Active 2024 Ciro Mak MD [address] [place] [address], [facility] 15:47:06 Acute hemorrhagic gastritis 6236981 Active 2024 Ciro Mak MD [address] [place] [address], [facility] 5 15:47:27 Pain of multiple joints 30877236 Active 2024 Ciro Mak MD [address] [place], [address], [facility] 15:49:51 Problem Notes None recorded. Procedures Surgical History Date Name Laterality Status Provider Name and Address Organization Details Recorded Time Cholecystectomy completed [facility] 06/11/2023 15:56:58 Tubal Ligation completed [facility], [facility] 06/11/2023 15:57:02 Total Hysterectomy completed [facility], [facility] 06/11/2023 15:57:06 removal of displaced intrauterine contraceptive device completed [facility], [facility] 06/11/2023 15:57:27 Ovarian Cystectomy completed [facility], [facility] 06/11/2023 15:57:42 Laparoscopy completed [facility] 06/11/2023 15:57:47 right oophorectomy completed Rody Moody [facility] 10/10/2023 10:30:05 Imaging Results None recorded. Procedure Notes None recorded. Medical Equipment None Reported. Allergies Allergen ID Allergen Name Allergen Category Reaction Reaction Severity Criticality Documentation Date Start Date Code Code System Note Provider Name and Address Organization Details Recorded Time 178 amoxicill in medicatio n hives mild low 06/07/2022 723 RxNorm Wilma Pritchett [facility], [facility] 15:52:07 1789 latex environme nt,medica tion hives mild low 06/07/2022 86488 91 RxNorm [facility] 4 15:52:19 46251 methotrex ate medicatio n headache vomiting moderate mild low 11/21/2022 6851 RxNorm Wilma rubio [facility], Calvin 4 15:52:27 49649 methylpre dnisolone medicatio n tachycard ia moderate low 06/11/2023 6902 RxNorm Wilma rubio [facility], Calvin 4 15:54:04 22463 Cipro medicatio n chest pain Not available high 10/03/2024 72789 3 RxNorm SOB as well. [facility] 5 11:25:18 Medications Name Sig Start Date [...] Available citalopra m daily 01/16 completed From [facility]; 0; Recorded 05/09/19 10:54AM by Geo Mora, [...] Available BuSpar daily 01/16 completed From [facility]; 0; Recorded 05/09/19 23 10:49AM by Geo [...] d [place] state standing order at [phone] active Not Available Not Available No t [...] Last Updated DateTime 149.86 cm 23.7 kg/m2 79426.7 1 g 16 /min 87 /min 99 % 98.4 [degF] 128/76 mm[Hg] CHASE AMES [facility] 17:49:13 Social History Question Answer Notes LastModified by [employer] Details LastModified Time Tobacco Smoking Status Never Smoker Wilma rubio [facility] 06/11/2023 15:56:49 What Was The Date Of Your Most Recent Tobacco Screening? 01/09/2025 [email or web address] Information not available 01/09/2025 Sex: Unknown Functional Status Question Answer Note LastModified by [employer] Details LastModified Time Do you use any [...] Transfusion N Breast Cancer N Depression Y COPD N Lung Disease N Hypothyroidism N Developmental or Behavioral Disorders N Defects or Inherited Disease N Breast Problem N Difficulty Swallowing N [...] Recorded Time Tdap 3 completed GEO rubio [facility] 02/16/2023 15:11:53 Influenza, split virus, trivalent, preservative 6 completed GEO rubio [facility] 02/16/2023 15:11:53 Influenza, split virus, quadrivalent, preservative 9 completed GEO rubio [facility] 02/16/2023 15:11:52 Past Encounters Encounter ID Performer Location Encounter Start Date Encounter Closed Date Diagnosis/Indication Diagnosis SNOMED-CT Code Diagnosis ICD10 Code Diagnosis IMO Codes Diagnosis Note [id number] GLENN GARCIA [facility] ([facility]) [address] [place] [address] 01/09/2025 17:36:42 01/09/2025 18:07:35 Acute folliculitis 286502991 L73.9 [id number] Health Concerns Section Related Observation LastModified by Organization Detai ls LastModified Time None Recorded Concern Status LastModified by Organization Details LastModified Time None Recorded Payers Encounter Date Sequence Insurance Name Policy Number Policy Tovar Covered Member ID Tovar Member ID Guarantor Name 01/09/2025 1 [facility] (MEDICAID HMO) Mary Nesbitt [id number] Mary Nesbitt Notes Date Note Type Note Provider Name and Address Organization Details Recorded Time 01/09/2025 text/html Skin LesionRepor abhijeet by PatientHPIFor associated symptoms, patient reportsfever,lesions multiplying,fatigue, andmyalgia. For location, patient reportsaxillaandgroi n. For quality, patient reportspainful,drain age,growing __, andbecoming more symptomatic. For severity, patient reportsmoderate. For duration, patient reports3 weeks.ROS as noted in the HPI walk-in GLNEN GARCIA [address] [place] [address], [phone], [facility] 01/09/2025 18:01:46 OBGyn Episode No OBEpisode recorded.
--- OUTSIDE RECORDS SUMMARY | 2025-01-17 08:55 | XMS_ITS | Patient Health Record ---
Author Organization [facility] Address [address] [facility] [place] [address] Care Team Providers Care Pbx Technician Name Role Phone Joaquin Mak Primary Care Provider Dannie Alejandro JR Unavailable [phone] Reason For Referral Reason Chronic Diarrhea c lose 11/25 Diagnosis 1 Chronic diarrhea (K5 2.9) Referring Provider First Name Joaquin Referring Provider Last Name Obdulio Referring Provider Speciality Family Med icine Referred Organization [facility] Infectious Disease Referred Provider Dannie Bui Referred Address [address] [facility],[address], Referred Provider Specialty Infectious D isease General Notes Jamila Mohamud 11/06 04:50:01 PM CDT > mailbox full, Jamila Mohamud 11/11/2024 10:15:58 AM CDT > mailbox full Referral Priority Routine Medications Medication SIG (Take, Route, Frequency, Duration) Notes Start Date End Date Status Topiramate *Pick strength-f orm from [facility] for eRX* Active Gabapentin *Pick strength-f orm from [facility] for eRX* Active Vitamin D3 *Pick strength-f orm from [facility] for eRX* Active Leflunomide *Pick strength-f orm from [facility] for eRX* Active tramadol *Reorder from [facility] for eRx and Interaction Alerts* Active Social [...] Coverage Start Date Coverage End Date Home [facility] Medicaid Replacement [address] [place] [phone] [id number] Mary Nesbitt Self - patient is the insured Medical (General) History Surgical History Surgery Date(Month/Year) Gynecological surgeries
--- OUTSIDE RECORDS SUMMARY | 2025-01-17 08:55 | XMS_ITS | Data Portability ---
Author Organization [place] Hurtado [facility] Calvin Humphries [facility] Address [address] [address] Care Team Providers Care Customer Counter Associate Name Role Phone CIRO MAK Primary Care Provider Assessment Encounter Date Assessment Date Assessment LastModified by Organization Details LastModified Time 10/03/2024 10/03/2024 Patient presents with symptoms of UTI. Results of dipstick were for UTI. Advised to drink clear fluids, Tylenol for pain and take prescribed medications as instructed. Patient encouraged to follow up within 1 week if not improving. [email or web address] Not available 10/03/2024 12:01:13 Plan of Treatment Reminders Order Date Submit Date Provider Last Modified By Organization Details Last Modified Time Details Appointments None recorded. Lab CBC 2024 025 [facility], [address] [facility], [facility] [address], [address], 5 16:14:51 CMP, serum or plasma 2024 025 [facility], [address] [place] [address] 248, [address] [place], [address], 10:24:25 urinalysis, complete 2024 025 [facility], [address] [facility], [facility] [address], [address], 13:24:20 culture, urine 2024 025 [facility], [address] [facility] [address], [address], [place], [address], 5 00:49:03 CBC 2024 025 [facility], [address] [facility], [address], [place], [address], 5 13:04:30 iron, serum 2024 025 [email or web address] [facility], [address] [facility] , [address], [place], [address], 5 09:42:57 ferritin, serum or plasma 2024 025 [facility], [address] [facility] [address], [address], [place], [place], [address], 5 00:49:02 TIBC (total iron-bindin g capacity), serum 2024 025 [email or web address] [facility], [address] [facility] [address], [address], [place], [address], 5 09:42:57 C diff screen, stool, reflex PCR 2024 025 [email or web address] 4 [facility] ([facility]), [address] [place] [address], [address], 5 12:13:51 infectious disease panel 2024 025 4 [facility] ([facility]), [address] [place] [address], [address], 5 12:13:50 hepatic function panel, serum 2024 025 [facility], [address] [facility], [facility] 1[place], [address], 21:54:34 hepatitis C virus Ab, serum 2024 [email or web address] [facility], [address], [address] [place], [address], 21:54:36 hepatitis C genotype, serum or plasma 2024 025 [facility] [address] [place], [address], 21:54:37 Referral gynecologis t referral [address], [address] [place] [address], [address], 21:06:22 Procedures None recorded. Surgeries None recorded. Imaging None recorded. Medication Orders Bactrim DS 800 mg-160 mg tablet 2024 025 [facility], [address] [place] [address], [address], 15:13:08 mupirocin 2 % topical ointment 2024 025 [facility], [address] [place] [address], [address], 15:13:08 alprazolam 0.5 mg tablet 2024 025 [facility], [address] [place] [address], [address], 09:54:03 diclofenac sodium 75 mg tablet,michael yed release 2024 025 [facility], [address] [place] [address], [address], 17:55:16 metoprolol tartrate 25 mg tablet 2024 025 [facility], [address] [place] [address], [address], 13:31:51 loratadine 10 mg tablet 2024 025 [facility], [address] [place] [address], [address], 15:11:23 cephalexin 500 mg capsule 2024 [facility], [address] [place] [address], [address], 05:01:23 clindamycin HCl 300 mg capsule 2024 [facility], [address] [place] [address], [address], 05:01:23 Patient TargetsNo targets recorded. Patient Instructions Encounter Date Encounter Id Patient Instructions Last Modified By Organization Details Last Modified Time 06/13/2024 [id number] Cleared for surgical repair of the knee. 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 1 normal Not Available [facility] [address] [place], [address], 09/17/2024 21:54:34 09/13/1909/17/2024 HEPAT IC FUNCT ION PANEL albumin 4.4 g/dL 3.6-5. 1 normal Not Available [address] [address] [place], [address], 09/17/2024 21:54:34 09/13/1909/17/2024 HEPAT IC FUNCT ION PANEL globulin 2.9 g/dL_ (calc ) 1.9-3. 7 normal Not Available [address] [address] [place], [address], 09/17/2024 21:54:34 09/13/1909/17/2024 HEPAT IC FUNCT ION PANEL albumin/glob ulin ratio 1.5 (calc ) 1.0-2. 5 normal Not Available [address], [address], 09/17/2024 21:54:34 09/13/1909/17/2024 HEPAT IC FUNCT ION PANEL bilirubin, total 0.5 mg/dL 0.2-1. 2 normal Not Available [address] [address] [place], [address], 09/17/2024 21:54:34 09/13/1909/17/2024 HEPAT IC FUNCT ION PANEL bilirubin, direct 0.2 mg/dL < or = 0.2 normal Not Available [address] [address] [place], [address], 09/17/2024 21:54:34 09/13/1909/17/2024 HEPAT IC FUNCT ION PANEL bilirubin, indirect 0.3 mg/dL _(arron c) 0.2-1. 2 normal Not Available [address] [address] [place], [address], 09/17/2024 21:54:34 09/13/1909/17/2024 HEPAT IC FUNCT ION PANEL alkaline phosphatase 182 U/L 31-125 high Not Available [facility] [email or web address] [address] [address] [place], [address], 09/17/2024 21:54:34 09/13/19 25 09/17/2024 HEPAT IC FUNCT ION PANEL AST 77 U/L 10-30 high Not Available [address] [place], [address], 09/17/2024 21:54:34 09/13/19 25 09/17/2024 HEPAT IC FUNCT ION PANEL ALT 624 U/L 6-29 high Verif ied by repea t darius sis. Not Available [address] [place], [address], 09/17/2024 21:54:34 09/13/1909/17/2024 HEPAT ITIS C AB [...] nt activ e infec tion. Not Available [address] [place], [address], 09/17/2024 21:54:36 09/13/19 25 09/17/2024 HCV RNA, QUANT ITATI VE REAL TIME PCR HCV RNA, quantitative real time PCR [id number] 0 IU/mL not detect ed high Not Available [address] [place], [address], 09/17/2024 21:54:37 09/13/1909/17/2024 HCV RNA, QUANT ITATI VE REAL TIME PCR HCV RNA, quantitative real time PCR 6.30 log_I U/mL not detect ed high HCV RNA was detec yogi. This resul t provi diasy labor atory evide nce of a curre nt activ e HCV infec tion. Not Available [facility] [place] [address] [place], [address], 09/17/2024 21:54:37 09/13/19 25 09/17/2024 HCV RNA, QUANT ITATI VE REAL TIME PCR comment For more andrea chiu on this test, go to: http: //[facility] [place] omerque stdia gnost ics.c om/fa q/FAQ 22v1 (This link is being provi ded for infor matio nal/ educa concepcion l purpo ses only. ) This assay is inten ded for use as an aid in the diagn osis of HCV infec tion and the manag ement of HCV infec yogi patie nts under going anti- viral thera py. Not Available [facility] [address] [place], [address], 09/17/2024 21:54:37 09/13/19 25 09/17/2024 HEPAT ITIS C VIRUS RNA GENOT YPE hepatitis C virus RNA genotype 3 normal REFER ENCE RANGE : NOT DETEC YOGI The metho ds used in this test are RT-PC R and DNA Seque ncing of the 5' UTR and core regio n of the HCV genom e. For addit ional nancy malin e refer to http: //[facility] [place] Danielle stDia gnost ics.c om/fa q/HCV [...] arron purpo ses. Not Available [facility] [address] [place], [address], 09/17/2024 21:54:37 10/04/19 25 10/03/2024 CBC WBC 6.2 x10 4.0-10 .5 Not Available [facility] [address] [facility] [address], [place], [address], 10/03/2024 13:04:30 10/04/19 25 10/03/2024 CBC RBC 3.56 x10 3.50-5 .50 Not Available [facility] [address] [facility] 1, [place], [address], 10/03/2024 13:04:30 10/04/19 25 10/03/2024 CBC HGB 9.3 g/dL 12.0-1 6.0 low Not Available [facility] [address] [facility] 1, [place], [address], 10/03/2024 13:04:30 10/04/1910/03/2024 CBC HCT 31.0 % 37.0-4 7.0 low Not Available [facility] [address] [facility] 1, [place], [address], 10/03/2024 13:04:30 10/04/19 25 10/03/2024 CBC MCV 87.2 fL 80.0-9 9.9 Not Available [facility] [address] [facility] 1, [place], [address], 10/03/2024 13:04:30 10/04/19 25 10/03/2024 CBC MCH 26.2 pg 27.0-3 2.0 low Not Available [facility] [address] [facility] 1, [place], [address], 10/03/2024 13:04:30 10/04/1910/03/2024 CBC MCHC 30.1 g/dL 32.0-3 6.0 low Not Available [facility] [address] [facility] 1, [place], [address], 10/03/2024 13:04:30 10/04/19 25 10/03/2024 CBC RDW 16.8 % 11.5-1 4.5 high Not Available [facility] [address] [facility] 1, [place], [address], 10/03/2024 13:04:30 10/04/19 25 10/03/2024 CBC plt 382.2 x10 140.0- 451.0 Not Available [facility] [address] [facility] 1, [place], [address], 10/03/2024 13:04:30 10/04/19 25 10/03/2024 CBC lymphocytes % 56.4 % 20.0-5 0.0 high Not Available [facility] [address] [facility] 1, [place], [address], 10/03/2024 13:04:30 10/04/19 25 10/03/2024 CBC granulcytes % 29.8 % 30.0-7 0.0 panic low Not Available [facility] [address] [facility] 1, [place], [address], 10/03/2024 13:04:30 10/04/19 25 10/03/2024 CBC monocytes % 9.3 % 2.0-16 .0 Not Available [facility] [address] [facility], [place], [address], 10/03/2024 13:04:30 10/04/19 25 10/03/2024 CBC granulcytes# 1.8 x10 Not Guillermina ilable [facility] [address] [facility], [place], [address], 10/03/2024 13:04:30 10/04/19 25 10/03/2024 CBC lymphocytes # 3.5 x10 Not Available [facility] [address] [facility] 1, [place], [address], 10/03/2024 13:04:30 10/04/19 25 10/03/2024 CBC monocytes # 0.6 x10 Not Avai lable [facility] [address], [place], [address], 10/03/2024 13:04:30 10/04/19 25 10/03/2024 URINA LYSIS WITH MICRO color YELLOW Not Available [facility] [address], [place], [address], 10/03/2024 13:24:20 10/04/19 25 10/03/2024 URINA LYSIS WITH MICRO clarity CLEAR Not Available [facility] [address], [place], [address], 10/03/2024 13:24:20 10/04/19 25 10/03/2024 URINA LYSIS WITH MICRO glu NEGATI VE Not Available [facility] [address], [place], [address], 10/03/2024 13:24:20 10/04/19 25 10/03/2024 URINA LYSIS WITH MICRO bili NEGATI VE Not Available [facility] [address], [place], [address], 10/03/2024 13:24:20 10/04/19 25 10/03/2024 URINA LYSIS WITH MICRO ket NEGATI VE Not Available [facility] [address], [place], [address], 10/03/2024 13:24:20 10/04/19 25 10/03/2024 URINA LYSIS WITH MICRO S.g >1.030 1.005- 1.025 high > Not Available [facility] [address], [place], [address], 10/03/2024 13:24:20 10/04/19 25 10/03/2024 URINA LYSIS WITH MICRO pH 6.0 5.0-7. 0 Not Available [facility] [address], [place], [address], 10/03/2024 13:24:20 10/04/19 25 10/03/2024 URINA LYSIS WITH MICRO pro 1+ Not Available [facility] [address], [place], [address], 10/03/2024 13:24:20 10/04/19 25 10/03/2024 URINA LYSIS WITH MICRO uro 0.2 E.U./D L Not Available [facility] [address], [place], [address], 10/03/2024 13:24:20 10/04/19 25 10/03/2024 URINA LYSIS WITH MICRO nit NEGATI VE Not Available [facility] [address], [place], [address], 10/03/2024 13:24:20 10/04/19 25 10/03/2024 URINA LYSIS WITH MICRO blo NEGATI VE Not Available [facility] [address], [place], [address], 10/03/2024 13:24:20 10/04/19 25 10/03/2024 URINA LYSIS WITH MICRO janice NEGATI VE Not Available [facility] [address], [place], [address], 10/03/2024 13:24:20 10/04/19 25 10/03/2024 URINA LYSIS WITH MICRO WBC 6-8 abnormal Not Available [facility] [address], [place], [address], 10/03/2024 13:24:20 10/04/19 25 10/03/2024 URINA LYSIS WITH MICRO RBC 2-3 Not Available [facility] [address], [place], [address], 10/03/2024 13:24:20 10/04/19 25 10/03/2024 URINA LYSIS WITH MICRO epi cells 12-15 abnormal Not Available [facility] [address] [facility] [address], [place], [address], 10/03/2024 13:24:20 10/04/19 25 10/03/2024 URINA LYSIS WITH MICRO bacteria 3+++ MUCUS THREAD S abnormal Not Available [facility] [address] [facility] [address], [place], [address], 10/03/2024 13:24:20 10/04/19 25 10/03/2024 URINA LYSIS WITH MICRO other NG Not Available [facility] [address] [facility] [address], [place], [address], 10/03/2024 13:24:20 10/04/19 25 10/04/2024 IRON AND TOTAL IRON MUNA NG CAPAC ITY iron, total 16 mcg/d L 40-190 low Not Available [address], [address], 10/05/2024 00:49:01 10/04/19 25 10/04/2024 IRON AND TOTAL IRON MUNA NG CAPAC ITY iron binding capacity 488 mcg/d L_(ca lc) 250-45 0 high Not Available [address], [address], 10/05/2024 00:49:01 10/04/19 25 10/04/2024 IRON AND TOTAL IRON MUNA NG CAPAC ITY % saturation 3 %_(ca lc) 16-45 low Not Available [address], [address], 10/05/2024 00:49:01 10/04/19 25 10/04/2024 KAREN TIN ferritin 8 NG/mL 16-154 low Not Available [facility] [address], [address], 10/05/2024 00:49:02 10/04/19 25 10/04/2024 CULTU RE, URINE , ROUTI NE culture, urine, routine SEE NOTE CULTU RE, URINE , ROUTI NE Micro Numbe r: [id number] Test Statu s: Final Speci men [...] Cultu re Trans port Tube. Not Available [facility] [address] [place], [address], 10/05/2024 00:49:03 05/28/19 25 05/26/2024 XR, knee, 3 view No observ ation record ed. [email or web address] [facility] [address] [place], [address], 06/03/2024 14:40:14 06/13/19 25 06/12/2024 MRI, knee, w/o contr ast No observ ation record ed. [email or web address] [facility] [address] [place], [address], 06/27/2024 11:13:58 11/26/19 25 11/13/2024 upper endos copy (EGD) with colon oscop y (PROC ) No observ ation record ed. [email or web address] Not Available 11/26 17:02:19 Result Notes None recorded. Problems Name Problem SNOMED Code Status Onset Date Resolution Date Notes Provider Name and Address Organization Details Recorded Time Depressive disorder 32963785 Active 2022 GEO GUZMAN [facility] [place] [facility], LRocLJudie 04/09/202 5 17:49:55 Migraine 19682328 Active 2022 MIGRAI NE; Impres comfort: daily migrai ne. GEO rubio, [facility] 5 17:51:24 Chronic pain syndrome 407948640 Active 2022 GEO rubio, [facility] 5 17:49:55 Major depressive disorder 072788989 Active 2022 GEO rubio, [facility] 5 17:49:55 Bipolar disorder 66175904 Active 2022 GEO rubio, [facility] 5 17:49:54 Essential hypertensio n 28193929 Active 2022 GEO rubio, [facility] 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 5 17:49:54 Hyperesthes ia 73914899 Active 2022 GEO rubio, [facility] 5 17:49:54 Gastroesoph ageal reflux disease 084115999 Active 2022 GEO rubio, [facility] 5 17:49:54 Seizure disorder 215293837 Active 2022 GEO rubio, [facility] 17:49:54 Cyst of left ovary 4467106103163 9108 Active 2022 Ciro Mak MD [address] [place] [address], [address], [facility] 16:21:39 Generalized anxiety disorder 71167921 Active 2023 GEO rubio, [facility] 17:49:54 Pulmonary embolism with pulmonary infarction 6533671103309 Active 2023 GEO rubio, [facility] 17:50:09 Hypercoagul ability state 40313987 Active 2023 GEO GUZMAN null, [facility] 5 17:49:55 Chronic diarrhea 791286267 Active 2023 GEO VILLAGRANRIS null, [facility] 17:49:54 Genital herpes simplex 84748290 Active 2023 [facility] GUZMAN [facility], [facility] 17:49:54 Derangement of right knee 4025924950177 9109 Active 2024 GEO GUZMAN null, [facility] 17:52:05 Bacterial urinary infection 768518706 Active 2024 Ciro Mak MD [address] [place] [address], [address], [facility] 16:21:00 Rupture of anterior cruciate ligament of right knee 7056064341793 9103 Active 2024 Ciro Mak MD [address] [place] [address], [address], [facility] 16:22:23 Acute hepatitis C 478426583 Active 2024 Ciro Mak MD [address] [place] [address], [facility] 14:23:53 Inflammator y disease of liver 209085173 Active 2024 Ciro Mak MD [address] [place] [address], [address], [facility] 14:24:06 Generalized abdominal pain 397193065 Active 2024 Ciro Mak MD [address] [place] [address], [address], [facility] 14:25:57 Supraventri cular tachycardia 4043759 Active 2024 Ciro Mak MD [address] [place] [address], [address], [facility] 12:01:26 Acute diarrhea 587068876 Active 2024 Ciro Mak MD [address] [place] [address], [address], [facility] 12:06:09 Iron deficiency anemia due to blood loss 140368942 Active 2024 Ciro Mak MD [address] [place] [address], [address], [facility] 12:10:20 Allergic rhinitis caused by pollen 87322434 Active 2024 Ciro Mak MD [address] [place] [address], [address], [facility] 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 12:16:10 Seizure 93734229 Active 2024 Ciro Mak MD [address] [place] [address], [address], [facility] 15:47:06 Acute hemorrhagic gastritis 2952642 Active 2024 Ciro Mak MD [address] [place], [address], [facility], Calvin 15:47:27 Pain of multiple joints 67459796 Active 2024 Ciro Mak MD [address] [place], [address], [facility], DeliaCRoc 15:49:51 Problem Notes None recorded. Procedures Surgical History Date Name Laterality Status Provider Name and Address Organization Details Recorded Time Cholecystectomy completed [facility], [place] 06/11/2023 15:56:58 Tubal Ligation completed [facility], Calvin 06/11/2023 15:57:02 Total Hysterectomy completed [facility], Calvin 06/11/2023 15:57:06 removal of displaced intrauterine contraceptive device completed [facility], MargoLJudie 06/11/2023 15:57:27 Ovarian Cystectomy completed [facility], LRocLRocCRoc 06/11/2023 15:57:42 Laparoscopy completed [facility], Calvin 06/11/2023 15:57:47 right oophorectomy completed Rody Moody [facility], L.LRocCRoc 10/10/2023 10:30:05 Imaging Results None recorded. Procedure Notes None recorded. Medical Equipment None Reported. Allergies Allergen ID Allergen Name Allergen Category Reaction Reaction Severity Criticality Documentation Date Start Date Code Code System Note Provider Name and Address Organization Details Recorded Time 1787 amoxicill in medicatio n hives mild low 06/07/2022 723 RxNorm [facility] 15:52:07 1789 latex environme nt,medica tion hives mild low 06/07/2022 92549 91 [facility] LR[facility] 4 15:52:19 25314 methotrex ate medicatio n headache vomiting moderate mild low 11/21/2022 6851 RxNorm Wilma Pritchett [facility], Calvin 4 15:52:27 87123 methylpre dnisolone medicatio n tachycard ia moderate low 06/11/2023 6902 [facility] MargoLJudie 4 15:54:04 50524 Cipro medicatio n chest pain Not available high 10/03/2024 67356 3 RxNorm SOB as well. [facility] MargoL[facility]ie 5 11:25:18 Medications Name Sig Start [...] [facility]; 0; Recorded 05/09/19 23 10:54AM by Geo [...] Updated DateTime 06/13/2024 149.86 cm 23.4 kg/m2 51876.71 g 100 /min 110/78 mm[Hg] SONIYA KRUEGER [facility], L[facility] 5 15:55:12 Date Recorded Body height Body mass index (BMI) Body weight Oxygen saturation Heart rate Systolic And Diastolic Provider Name and Address Organization Details Last Updated DateTime 149.86 cm 22 kg/m2 63666.5 7 g 100 % 94 /min 110/80 mm[Hg] GEO GUZMAN [facility], L.L.CRoc 5 14:05:44 Date Recorded Body height Body mass index (BMI) Body weight Oxygen saturation Heart rate Systolic And Diastolic Provider Name and Address Organization Details Last Updated DateTime 149.86 cm 23 kg/m2 11603.5 3 g 98 % 120 /min 124/78 mm[Hg] [facility] 5 11:28:19 Date Recorded Body height Body mass index (BMI) Body weight Oxygen saturation Heart rate Systolic And Diastolic Provider Name and Address Organization Details Last Updated DateTime 5 149.86 cm 23.2 kg/m2 02607.1 2 g 97 % 67 /min 100/70 mm[Hg] [facility] 5 15:31:09 Date Recorded Body height Body mass index (BMI) Body weight Respiratory rate Heart rate Oxygen saturation Body temperature Systolic And Diastolic Provider Name and Address Organization Details Last Updated DateTime 5 149.86 cm 23.7 kg/m2 06686.7 1 g 16 /min 87 /min 99 % 98.4 [degF] 128/76 mm[Hg] CHASE KWAKU [facility] 5 17:49:13 Social History Question Answer Notes LastModified by [employer] Details LastModified Time Tobacco Smoking Status Never Smoker [facility] 06/11/2023 15:56:49 What Was The Date Of Your Most Recent Tobacco Screening? 01/09/2025 [email or web address] Information not available 01/09/2025 Sex: Unknown Functional Status Question Answer Note LastModified by [employer] Details LastModified Time Do you use any [...] N Breast Cancer N Blood Transfusion N Depression Y Hypothyroidism N Lung Disease N COPD N Developmental or Behavioral Disorders N Defects or Inherited Disease N Breast Problem N Difficulty Swallowing N Anesthesia Complications N Anxiety Disorder Y Meniere's disease N Muscle, Joint, or Bone Problems N Vision [...] Recorded Time Tdap 3 completed GEO rubio [facility] 02/16/2023 15:11:53 Influenza, split virus, trivalent, preservative 6 completed GEO rubio [facility] 02/16/2023 15:11:53 Influenza, split virus, quadrivalent, preservative 9 completed GEO rubio [facility] 02/16/2023 15:11:52 Past Encounters Encounter ID Performer Location Encounter Start Date Encounter Closed Date Diagnosis/Indication Diagnosis SNOMED-CT Code Diagnosis ICD10 Code Diagnosis IMO Codes Diagnosis Note [id number] Ciro Mak MD [facility] ([facility]) [address] [place] [address] 06/07/2022 10:06:39 06/13/2022 11:39:35 Low back pain 143773581 M54.51 Major depr essive disorder 186433889 F32.9 Bipolar disorder 4334857 4 F31.9 Essential hypertension 09395247 I10 Chronic pain syndrome 37 1820388 G89.4 [id number] Ciro Mak MD [facility] ([facility]) [address] [place] [phone] 5 07/07/2022 10:03:35 07/07/2022 13:02:37 Livedo reticularis 938089751 R23.1 unknown cause on her back. Will check MANOJ, ESR, CRP and other tests on return. Postoperat bert hematoma formation 143065063 T81.89XS She has a tender hematoma in left low abdomen area. Will watch it for now. [id number] Ciro Mak MD [facility] ([facility]) [address] [place] [phone] 5 09/06/2022 14:41:46 09/06/2022 17:12:15 Low back pain 774581675 M54.50 stable Depressive disorder 3548 9007 F32.9 Hyperesthesia 98771230 R 20.3 LLQ from Surgical wound. Not severe. Disorder of skin 0708918 5 L98.9 unusual presentati on of skin of back. WIll check for autoimmune disease and refer to dermatolog y. [id number] Yves Dimas MD [facility] ([facility]) [address] [place] [phone] 5 11/21/2022 14:36:35 11/30/2022 14:58:13 Nausea 705484492 R11.0 Acute uppe r respiratory infection 67914396 J06.9 Testing was negative. Likely upper respirator y infection. Recommend fluids, rest, and over-the-c ounter medication for symptom management . Anticipate this will improve over the next 7 to 10 days. [id number] Ciro Mak MD [facility] ([facility]) [address] [place] [id number] 5 01/16/2023 16:02:07 01/16/2023 18:11:25 Pain of right ankle joint 8964851945 4503992 M25.571 re took xray of foot due to increased pain to make sure an occult fracture was not missed. Gastroesop hageal reflux disease 905140176 K21.9 Nausea and vomiting 1692 1999 R11.2 [id number] Ciro Mak MD [facility] ([facility]) [address] [place] [address] [id number] 5 02/16/2023 14:56:52 02/16/2023 16:01:58 Abdominal pain 60075348 R10.9 CT abdomen demonstate d moderate stool in colon and left ovarian cyst x 2. Cyst of left ovary 85485 73336 6122718 N83.202 Low back pain 063994679 M54.50 stable [id number] Ciro Mak MD [facility] ([facility]) [address] [place] [address] [id number] 5 05/07/2023 14:38:55 05/07/2023 16:31:02 Dysuria 28250537 R30.0 Recurrent urinary tract infection 109010175 N39.0 Pain of le ft knee joint 3448208561 29190 M25.726 [id number] GLENN GARCIA [facility] ([facility]) [address] [place] [phone] 5 06/11/2023 15:20:14 06/12/2023 18:13:09 Pain of right hand 4440887556 08730 M79.641 Contusion of right hand 8961915029 0282468 S60.221A Xray negative. Modified volar splint applied in clinic today for comfort. Patient is to remove the splint 2-3 times a day and perform slow ROM exercises to the fingers. Discussed RICE.F/u in 5-7 days if symptoms persist for re-evaluat ion.Use tylenol/mo eddie for discomfort . [id number] Ciro Mak MD [facility] ([facility]) [address] [place] [address] [id number] 5 06/12/2023 13:46:25 06/12/2023 16:44:34 Low back pain 305891772 M54.50 worsening. She is performing back exercises [...] wall sit exercises. Pain of right hand 84228 38129 07729 M79.641 continue splinting for comfort and ice as needed. [id number] Ciro Mak MD [facility] ([facility]) [address] [place] [address] [id number] 5 07/02/2023 14:43:21 07/02/2023 15:25:48 Pain in pelvis 92451449 R10.2 Vaginitis 29316979 N76.0 Low back pain 393050218 M54.50 Chronic, She is continuing her low back exercises. Generalize d anxiety disorder 28826243 F41.1 [id number] Ihsan Mora DO [facility] ([facility]) [address] [place] [address] [phone] 5 07/30/2023 08:19:43 07/30/2023 08:41:27 Rib pain 418540773 R07.[address] of [address], but pain more severe than expected with high risk factors, will get xray. start tizanidine prn. Return to office with no improvemen t or any problems. Go to ER with severe worsening or severe problems. [id number] Ciro Mak MD [facility] ([facility]) [address] [place] [address] [phone] 5 08/08/2023 11:26:52 08/08/2023 12:35:04 History of pulmonary embolus 616536692 Z86.711 diagnosed last week. On Eliquis 10mg bid and will start 5mg bid next week. Pulmonary embolism with pulmonary infarction 6684444498 102 I26.99 small area of infarction left lung base. Hypercoagu lability state 25074397 D68.59 Appt. peding with hematologi st/oncolog ist for further evaluation of this. [id number] Ciro Mak MD [facility] ([facility]) [address] [place] [address] [phone] 5 09/17/2023 09:59:04 09/17/2023 11:14:13 Abdominal pain 98984644 R10.9 CT abdomen was negative Diarrhea 30479220 R19.7 possible C Diff Hematochezia 764246188 K 92.1 on anticoagul ants. Pulmonary embolism with pulmonary infarction 8861908505 102 I26.99 small area of infarction left lung base. Mixed anxi ety and depressive disorder 540189065 F41.8 Generalize d anxiety disorder 24210265 F41.1 [id number] GLENN GARCIA [facility] ([facility]) [address] [place] [address] [phone] 5 10/10/2023 10:15:36 10/10/2023 11:14:07 Sore throat 520382909 J02.9 Acute laryngitis 2176656 J04.0 Push cold oral fluids including Popsicles. Alternate tylenol/mo eddie for fever or discomfort .May use throat lozenges, chlorasept ic spray, or saltwater gargles.If you develop worsening symptoms such as unable to swallow, persistant fever, or concerns arise then return for re-eval. [id number] Ciro Mak MD [facility] ([facility]) [address] [place] [address] [phone] 5 10/15/2023 09:54:42 10/15/2023 10:52:42 Abdominal pain 20718121 R10.9 CT abdomen was negative Scheduled with Dr. Chamberlain for Colonoscop y and EGD at the end of October. Still some small amount of blood in stools. Allergic rhinitis 502437 04 J30.9 Gastroesop hageal reflux disease 345598755 K21.9 Hypercoagu lability state 76007651 D68.59 Pulmonary embolism with pulmonary infarction 4130587037 102 I26.99 [id number] Ciro Mak MD [facility] ([facility]) [address] [place] [address] [phone] 5 11/06/2023 14:02:32 11/08/2023 11:28:33 Chronic diarrhea 557915166 K52.9 Colonoscop y to be done next week. Vesicular eruption 08132 008 R23.8 Possibly herpes vs just irritation from frequent diarrhea. [id number] Yves Dimas MD [facility] ([facility]) [address] [place] [address] [phone] 5 01/10/2024 13:17:29 01/10/2024 14:26:25 Viral gastroenteritis 904634628 A08.4 Likely exacerbate d from viral gastroente ritis. Less likely to be pancreatit is or something similar from her recent alcohol use. The patient primarily needs a refill on her Zofran which was done today. Encouraged the patient to continue with clear liquids and when feeling better to start bland diet. With PCP if symptoms are not improving. [id number] Ciro Mak MD [facility] ([facility]) [address] [place] [address] [phone] 5 01/16/2024 10:20:16 01/16/2024 16:16:10 Diarrhea 36455110 R19.7 Chronic C Diff. SHe has an appt. with an ID physician in January to work on her plan. Low back pain 320708712 M54.50 Chronic, She is continuing her low back exercises. Acute gastroenteritis 69 318993 K52.9 Acute sinusitis 69983911 J01.90 [id number] Ihsan Mora DO [facility] ([facility]) [address] [place] [address] [phone] 5 05/26/2024 16:25:11 05/26/2024 17:22:02 Pain of right knee joint 7378321223 13923 M25.561 now chronic, since injury in feb 2024. xray today with no acute bony problems.c oncern for ligamental damage vs meniscal injury. pt to rest, ICE, start nsaids since she is not taking any. continue brace. f/u with pcp to consider further imaging vs PT vs ortho referral.c ounseled Cellulitis of right thumb 7863383534 7512472 L03.011 2/2 dog bite. will start abx, she is UTD on tetnus. .cx [id number] Ciro Mak MD [facility] ([facility]) [address] [place] [address] [phone] 5 05/28/2024 14:30:26 05/29/2024 08:37:16 Derangement of right knee 3640682826 0998002 M23.91 her knee pain has been persistant for 3 months since her injury. [id number] Ciro Mak MD [facility] ([facility]) [address] [place], [place] [phone] 5 06/13/2024 15:39:48 06/13/2024 16:35:40 Bacterial urinary infection 330580515 N39.0 A49.9 4274453 Improved but switching antibiotic s due to bite. Cyst of left ovary 88604 73611 2408926 N83.202 023105 Rupture of anterior cruciate ligament of right knee 0641878133 4672389 S83.511D [id number] surgery scheduled in June. She is cleared for surgical repair of her knee. Dog bite - wound 7326738 05 W54.0XXA L08.9 5109469 MIld swelling and erythema of the thumb. [id number] Ciro Mak MD [facility] ([facility]) [address] [place] [address] [phone] 5 09/12/2024 13:51:45 09/12/2024 14:33:06 Acute hepatitis C 842663134 B17.10 [id number] Diagnosed at [facility]. Genotype not done. Inflammato ry disease of liver 078174622 K75.9 14666 elevated LFT's from tylenol overuse with recent diagnosis of Hepatitis C. Was not evident one year ago with negative test in July,. Generalize d abdominal pain 706552486 R10.84 060746 RUQ and generalize d. 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.2 75859 [id number] Ciro Mak MD [facility] ([facility]) [address] [place] [address] [phone] 5 11/14/2024 14:50:41 11/14/2024 16:00:08 Seizure 01513868 R56.9 37838 Acute hemo rrhagic gastritis 8262505 K29.01 46144651 Pain of mu ltiple joints 40594544 M25.50 409172 Generalize d anxiety disorder 35363697 F41.1 Iron defic iency anemia due to blood loss 855205536 D50.0 961079 [id number] GLENN GARCIA [facility] ([facility]) [address] [place] [address] 01/09/2025 17:36:42 01/09/2025 18:07:35 Acute folliculitis 109579089 L73.9 20386910 Health Concerns Section Related Observation LastModified by Organization Detai ls LastModified Time None Recorded Concern Status LastModified by Organization Details LastModified Time None Recorded Advance Directives Directive None Recorded Payers Insurance Date Sequence Insurance Name Policy Number Policy Tovar Covered Member ID Tovar Member ID Guarantor Name 01/09/2025 [place] Mary Nesbitt [id number] Mary Nesbitt 01/09/2025 [place] [facility] (INSTITUTIONAL) Mary Nesbitt [id number] Mary Nesbitt 01/09/2025 [facility] (MEDICAID HMO) Mary Nesbitt [id number] Mary Nesbitt 01/09/2025 1 [facility] (MEDICAID HMO) Mary Nesbitt [id number] Mary Nesbitt 05/26/2024 [facility] (MEDICAID HMO) Mary Nesbitt [id number] Mary Nesbitt Notes Date Note Type Note Provider Name and Address Organization Details Recorded Time 09/12/2024 text/html Went to ER on 09/06/24 and was admitted to ICU due to her liver enzymes were elevated.Was told at the hospital that she had Hep C. Would like to discuss. Ciro Mak MD [address] [place] [address], [phone], [facility], [place] 09/12/2024 14:32:01 10/03/2024 text/html Lower [...] Dr. 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 Ciro Mak MD [address] [place] [address], [phone], [facility] 10/03/2024 12:17:50 11/14/2024 text/html Generalized Anxi ety DisorderReported by PatientHPIFor associated symptoms, patient reportsdifficulty concentrating,difficul ty controlling worry,excess anxiety,tachycardia, andhigh irritability. For severity, patient reportsmild. Had a seizure yesterday. Also had a scope done yesterday at [facility].She was told that she needed to have her RBCs checked out per hospital.Would like to discuss her sugar levels as well, her sugar was checked yesterday and it was 84 after eating lunch. Ciro Mak MD [address] [place] [address], [phone], [facility] 11/14/2024 15:57:59 01/09/2025 text/html Skin LesionRepor yogi by PatientHPIFor associated symptoms, patient reportsfever,lesions multiplying,fatigue, andmyalgia. For location, patient reportsaxillaandgroin. For quality, patient reportspainful,drainag e,growing __, andbecoming more symptomatic. For severity, patient reportsmoderate. For duration, patient reports3 weeks.ROS as noted in the HPI walk-in GLENN GARCIA [address] [place] [address], [phone], [facility] 01/09/2025 18:01:46 OBGyn Episode No OBEpisode recorded.
--- OUTSIDE RECORDS SUMMARY | 2025-01-17 08:56 | XMS_ITS | Continuity of Care Document ---
Author Organization RILEY Hurtado [facility] Calvin Humphries, [facility] ([facility]) Address [address] [place] [address] Care Team Providers Care Cnc Service Technician Name Role Phone CIRO CORTÉS Primary Care Provider Assessment No assessment recorded. Plan of Treatment Reminders Order Date Submit Date Provider Last Modified By Organization Details Last Modified Time Details Appointments None recorded. Lab CBC 2024 025 TYRINGHAM Masood [facility], [address] [facility] [address], [address], 16:14:51 CMP, serum or plasma 2024 025 JONATHANIntellicheck Mobilisa [facility], [address] [place] [address], [facility] [address] [place], [address], 10:24:25 Referral None recorded. Procedures None recorded. Surgeries None recorded. Imaging None recorded. Medication Orders alprazolam 0.5 mg tablet 2024 025 [facility], [address] [place] [address], [address], 09:54:03 diclofenac sodium 75 mg tablet,michael yed release 2024 025 [facility], [address] [place], [address], 17:55:16 Patient TargetsNo targets recorded. Patient InstructionsNo [...] Address Organization Details Recorded Time Depressive disorder 36915119 Active 2022 [facility] 17:49:55 Migraine 21911909 Active 2022 MIGRAI NE; Impres comfort: daily migrai ne. [facility] 17:51:24 Chronic pain syndrome 152357247 Active 2022 GEO MORA [facility] 17:49:55 Major depressive disorder 458673777 Active 2022 GEO MORA [facility] 17:49:55 Bipolar disorder 29247879 Active 2022 GEO MEGAN [facility] 17:49:54 Essential hypertensio n 48657141 Active 2022 GEO MORA [facility] 17:49:55 Livedo reticularis 603048402 Active 2022 GEO MORA [facility] 17:49:54 Hyperesthes ia 32522824 Active 2022 GEO MORA [facility] 17:49:54 Gastroesoph ageal reflux disease 370338204 Active 2022 GEO MORAAZAR rubio, [facility] 17:49:54 Seizure disorder 058964773 Active 2022 GEO MORAAZAR rubio, [facility] 5 17:49:54 Cyst of left ovary 4535419898346 9108 Active 2022 Ciro Cortés MD [address] [place] [address], [phone], [facility] 5 16:21:39 Generalized anxiety disorder 22326116 Active 2023 [facility] 5 17:49:54 Pulmonary embolism with pulmonary infarction 1588637453412 Active 2023 [facility]O [facility]ZAR [facility] 5 17:50:09 Hypercoagul ability state 43031126 Active 2023 GEO MORAAZAR rubio, [facility] 5 17:49:55 Chronic diarrhea 100690554 Active 2023 [facility] 5 17:49:54 Genital herpes simplex 84608054 Active 2023 [facility]O [facility]A [facility] 5 17:49:54 Derangement of right knee 7937207027561 9109 Active 2024 GEO rubio, [facility] 17:52:05 Bacterial urinary infection 294872946 Active 2024 Ciro Cortés MD [address] [place] [address], [phone], [facility] 16:21:00 Rupture of anterior cruciate ligament of right knee 6318338005026 9103 Active 2024 Ciro Cortés MD [address] [place] [address], [address] [place] [address] 5, [facility] 16:22:23 Acute hepatitis C 838552623 Active 2024 Ciro Cortés MD [address] [place] [address] 5, [facility] 14:23:53 Inflammator y disease of liver 236400057 Active 2024 Ciro Cortés MD [address] [place] [address] 5, [facility] 14:24:06 Generalized abdominal pain 218478518 Active 2024 Ciro Cortés MD [address] [place] [address] 5, [facility] 14:25:57 Supraventri cular tachycardia 2253358 Active 2024 Ciro Cortés MD [address] [place] [address], [address] [place] [address] 5, [facility] 12:01:26 Acute diarrhea 384559350 Active 2024 Ciro Cortés MD [address] [place] [address] 5, [facility] 12:06:09 Iron deficiency anemia due to blood loss 121052825 Active 2024 Ciro Cortés MD [address] [place] [address], [facility] 12:10:20 Allergic rhinitis caused by pollen 81016187 Active 2024 Ciro Cortés MD [address] [place] [address], [phone], [facility], Calvin 12:11:18 Factor V deficiency 2463960 Active 2024 Ciro Cortés MD [address] [place] [address], [address], [facility], Calvin 12:16:10 Seizure 24634750 Active 2024 Ciro Cortés MD [address] [place] [address], [phone], [facility], Calvin 15:47:06 Acute hemorrhagic gastritis 3007092 Active 2024 Ciro Cortés MD [address] [place] [address], [phone], [facility], [place] 15:47:27 Pain of multiple joints 28754928 Active 2024 Ciro Cortés MD [address] [place] [address], [phone], [facility], [place] 15:49:51 Problem Notes None recorded. Procedures Surgical History Date Name Laterality Status Provider Name and Address Organization Details Recorded Time [facility] 15:56:58 Tubal Ligation completed [facility], [facility] 06/11/2023 15:57:02 [facility] 15:57:06 removal of displaced intrauterine contraceptive device completed [facility], Calvin 06/11/2023 15:57:27 [facility] 15:57:42 Laparoscopy completed [facility] 06/11/2023 15:57:47 right oophorectomy completed Rody varner [facility] 10/10/2023 10:30:05 Imaging Results None recorded. Procedure Notes None recorded. Medical Equipment None Reported. Allergies Allergen ID Allergen Name Allergen Category Reaction Reaction Severity Criticality Documentation Date Start Date Code Code System Note Provider Name and Address Organization Details Recorded Time 178 amoxicill in medicatio n hives mild low 06/07/2022 723 RxNorm [facility] 4 15:52:07 1789 latex environme nt,medica tion hives mild low 06/07/2022 33492 91 RxNorm Wilma Pritchett [facility] 4 15:52:19 63840 methotrex ate medicatio n headache vomiting moderate mild low 11/21/2022 6851 RxNorm Wilma Pritchett [facility] 4 15:52:27 38662 methylpre dnisolone medicatio n tachycard ia moderate low 06/11/2023 6902 RxNorm Wilma Pritchett [facility] 4 15:54:04 93998 Cipro medicatio n chest pain Not available high 10/03/2024 41002 3 RxNorm SOB as well. [facility] 5 11:25:18 Medications Name Sig Start [...] Available citalopra m daily 01/16 completed From [facility]; 0; Recorded 05/09/19 10:54AM by Geo Mora, [...] Not Available BuSpar daily 01/16 completed From [facility]; 0; Recorded 05/09/19 23 10:49AM by Geo [...] the pharmaci st who fulfille d this [place] state standing order at active Not Available [...] Last Updated DateTime 149.86 cm 23.2 kg/m2 06187.1 2 g 97 % 67 /min 100/70 mm[Hg] GEO MORA [facility] 15:31:09 Social History Question Answer Notes LastModified by Organizat ion Details LastModified Time Tobacco Smoking Status Never Smoker Wilma Pritchett ramiro [facility] 06/11/2023 15:56:49 What Was The [...] Recorded Time Tdap 3 completed GEO rubio, [facility] 02/16/2023 15:11:53 Influenza, split virus, trivalent, preservative 6 completed GEO rubio, [facility] 02/16/2023 15:11:53 Influenza, split virus, quadrivalent, preservative 9 completed GEO rubio [facility] 02/16/2023 15:11:52 Past Encounters Encounter ID Performer Location Encounter Start Date Encounter Closed Date Diagnosis/Indication Diagnosis SNOMED-CT Code Diagnosis ICD10 Code Diagnosis IMO Codes Diagnosis Note [id number] Ciro Cortés MD [facility] ([facility]) [address] [place] [address] 11/14/2024 14:50:41 11/14/2024 16:00:08 Seizure 08505043 R56.9 12550 Acute hemo rrhagic gastritis 5416792 K29.01 07239167 Pain of mu ltiple joints 90896752 M25.50 772376 Generalize d anxiety disorder 16967647 F41.1 Iron defic iency anemia due to blood loss 564301869 D50.0 126831 Health Concerns Section Related Observation LastModified by Organization Detai ls LastModified Time None Recorded Concern Status LastModified by Organization Details LastModified Time None Recorded Payers Encounter Date Sequence Insurance Name Policy Number Policy Tovar Covered Member ID Tovar Member ID Guarantor Name 11/14/2024 1 [facility] (MEDICAID HMO) Mary Nesbitt [id number] Mary Nesbitt Notes Date Note Type Note Provider Name and Address Organization Details Recorded Time 11/14/2024 text/html Generalized Anxi ety DisorderReported by PatientHPIFor associated symptoms, patient reportsdifficulty concentrating,difficul ty controlling worry,excess anxiety,tachycardia, andhigh irritability. For severity, patient reportsmild. Had a seizure yesterday. Also had a scope done yesterday at [facility].She was told that she needed to have her RBCs checked out per hospital.Would like to discuss her sugar levels as well, her sugar was checked yesterday and it was 84 after eating lunch. Ciro Cortés MD [address] [place] [address], [phone], [facility], [place] 11/14/2024 15:57:59 OBGyn Episode No OBEpisode recorded.
--- NOTE | 2025-01-17 09:02 | ED_ITS ---
HPI - Back Pain/Injury General: Chief Complaint: Back Pain/Injury Stated Complaint: Mid to lower Back Pain Time Seen by Provider: 01/17/25 08:53 Source: patient Mode of arrival: ambulatory Limitations: no limitations History of Present Illness: 34-year-old female states [place] Sunday and had lifted a mattress and strained her left lower back. States she been having low back pain since then. She states it tends to be worse throughout the day is worse with movement and lifting improved with rest. States its on the left side denies any radiation rates the pain a 4 out of 10 currently. Related Data Home Medications ?Medication ?Instructions ?Recorded ?Confirmed alprazolam 0.25 mg tablet 0.25 mg PO TID PRN Anxiety 0 08/06/23 12/03/24 topiramate 200 mg tablet 200 mg PO BID 02/21/2412/03 glecaprevir 100 mg-pibrentasvir 40 3 tab PO DAILY 10/2112/03/24 mg tablet (Mavyret) loratadine 10 mg tablet 10 mg PO DAILY 11/10/2411/19 metoprolol tartrate 25 mg tablet 25 mg PO BID 11/10/24 12/03/24 Previous Rx's ?Medication ?Instructions ?Recorded hydrocodone 5 mg-acetaminophen 325 1 tab PO Q6H PRN pa in #30 tabs 07/16/24 mg tablet gabapentin 300 mg capsule 300 mg PO QID 30 days #120 c aps 09/09/24 ondansetron 4 mg disintegrating 4 mg PO TID PRN Nausea And 09/14/24 tablet Vomiting #14 tabs promethazine 25 mg rectal 25 mg WV Q6H PRN nausea and 09/26/24 suppository vomiting #12 ea ondansetron 8 mg disintegrating 8 mg PO Q6H #14 tabs 0 10/05/24 tablet pantoprazole 40 mg tablet,delayed 40 mg PO DAILY #40 t abs 10/28/24 release (Protonix) ondansetron 4 mg disintegrating 4 mg PO TID PRN nausea and 12/08/24 tablet vomiting #30 tabs cyclobenzaprine 10 mg tablet 10 mg PO TID PRN muscle s pasm #20 01/11/25 tabs promethazine 25 mg tablet 25 mg PO TID PRN nausea #14 tabs 01/11/25 methocarbamol 750 mg tablet 750 mg PO Q6H PRN spasms # 20 tabs 01/17/25 naproxen 500 mg tablet (Naprosyn) 500 mg PO BID PRN pa in #20 tabs 01/17/25 Allergies Allergy/AdvReac Type Severity Reaction Status Date / Time methylprednisolone Allergy Severe ALGY-Anaphy Verified 12/03/24 15:24 laxis Latex, Natural Rubber Allergy Intermediate rash, hives Verified 12/03/24 15:24 amoxicillin Allergy ALGY-Hives Verified 12/03/24 15:24 cefdinir Allergy Unknown Verified 12/03/24 15:24 methotrexate AdvReac Intermediate migraines, Verified 12/03/24 15:24 N/V Review of Systems Musc: Reports: back pain PFSH ED PFSH: Medical History Bipolar disorder, unspecified Family history of colon cancer Bilateral pulmonary embolism Vapes nicotine containing substance Seizures Hx of migraines Ovarian mass, right Family history of psoriasis in father High risk medication use Inflammatory back pain Inflammatory arthritis Psychiatric care 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 Mosher at [facility] History of tubal ligation 12/2015- per Dr. Mosher at [facility] H/O removal of cyst [address] Mosher Family History Mother Stroke Hyperlipidemia Family history of thyroid problem Hypertension Cancer of tongue Father Degenerative disc disease Diabetes Unknown Breast cancer maternal great aunt Grandmother Ovarian cancer maternal Uterine cancer maternal Other Cancer Chronic kidney disease (CKD) Rheumatoid arthritis Denies family history of Lupus Social History Smoking and tobacco/nicotine status: never used tobacco/nicotine Second hand smoke exposure: No Alcohol intake: never Substance/Drug Use: never Physical Exam Const: COMMON NORMALS: no acute distress, patient oriented x3 and healthy appearing HENMT: COMMON NORMALS: normocephalic and atraumatic HEAD & SCALP: normocephalic and atraumatic Eye: COMMON NORMALS: conjunctivae normal CONJUNCTIVA: Yes conjunctivae normal Neck/C-Spine: COMMON NORMALS: full ROM and supple Chest: COMMONS NORMALS: normal inspection of the chest Resp: COMMON NORMALS: normal respiratory effort Cardio: COMMON NORMALS: regular rate RATE: regular rate Back/Pelvis: OTHER: Slight tenderness left lower back no midline tenderness no saddle esthesia Extremity: COMMON NORMALS: normal to inspection and full ROM Neuro: COMMON NORMALS: patient oriented x3, moves all extremities and no focal motor deficits Psych: COMMON NORMALS: mental status grossly normal, Normal thought process present and cooperative THOUGHT PROCESS: Normal thought process present Skin: COMMON NORMALS: no rashes or lesions noted and no wounds GENERAL SKIN EXAM: no rashes or lesions noted Course Vital Signs: Vital signs: Vital Signs Temperature 98.8 F 01/17/25 08:53 Pulse Rate 108 H 01/17/25 08:53 Respiratory Rate 15 01/17/25 08:53 Blood Pressure 111/96 01/17/25 08:53 Pulse Oximetry 100 01/17/25 08:53 Oxygen Delivery Me thod Room Air 01/17/25 08:53 MDM - Back Pain/Injury Medical Decision Making Patient presents here with low back pain differential includes muscle strain, epidural abscess, cauda equina. Patient has no signs of epidural abscess or cauda equina she has no weakness no saddle anesthesia. Did hurt it lifting likely a muscle strain we will prescribe her Naprosyn and Robaxin she stable for discharge follow-up PCP return if worsening. No radiology studies performed this visit Discharge Plan Discharge Patient Disposition: Home Clinical Impression: Strain of lumbar region Condition: Stable Prescriptions: New methocarbamol 750 mg tablet 750 mg PO Q6H PRN (Reason: spasms) Qty: 20 0RF naproxen [Naprosyn] 500 mg tablet 500 mg PO BID PRN (Reason: pain) Qty: 20 0RF No Action topiramate 200 mg tablet 200 mg PO BID hydrocodone-acetaminophen 5-325 mg tablet 1 tab PO Q6H PRN (Reason: pain) Qty: 30 0RF gabapentin 300 mg capsule 300 mg PO QID 30 Days Qty: 120 3RF ondansetron 4 mg tablet,disintegrating 4 mg PO TID PRN (Reason: Nausea And Vomiting) Qty: 14 0RF promethazine 25 mg suppository 25 mg WV Q6H PRN (Reason: nausea and vomiting) Qty: 12 0RF pantoprazole [Protonix] 40 mg tablet,delayed release (DR/EC) 40 mg PO DAILY Qty: 40 0RF Rx Instructions: 1 p.o. twice daily x 10 days and 1 p.o. daily ondansetron 4 mg tablet,disintegrating 4 mg PO TID PRN (Reason: nausea and vomiting) Qty: 30 0RF promethazine 25 mg tablet 25 mg PO TID PRN (Reason: nausea) Qty: 14 0RF cyclobenzaprine 10 mg tablet 10 mg PO TID PRN (Reason: muscle spasm) Qty: 20 0RF alprazolam 0.25 mg tablet 0.25 mg PO TID PRN (Reason: Anxiety) ondansetron 8 mg tablet,disintegrating 8 mg PO Q6H Qty: 14 0RF Rx Instructions: Take 1/2-1 tab every 6 hours as needed for nausea and vomiting loratadine 10 mg tablet 10 mg PO DAILY metoprolol tartrate 25 mg tablet 25 mg PO BID Mavyret 100-40 mg tablet 3 tab PO DAILY Discharge Orders: Discharge ED (Routine); Ordered 01/17/25 Ordered By: Ramirez Elizabeth Referrals: Joaquin Mak MD [Primary Care Provider, Family Practice] - 4-7 days Discharge Diet: Advance as tolerated Discharge Activity: Resume usual activity Patient Instructions: Low Back Strain (ED) Print Language: Togolese Coding Level of Care Code ED 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
[2025-01-17 09:06] VITALS: BP 125/85; PULSE 107; O2SAT 98
[2025-01-17] MEDS: HYDROcodone-acetaminophen 7.5-325 mg Tablet 1 TAB PO (09:06)
== END 2025-01-17 09:06 | disposition home or self-care (01) ==
PROVIDERS: Emergency Provider Emergency Medicine; PCP Family Medicine
DX: S39.012A Strain of muscle, fascia and tendon of lower back, initial encounter (principal); X50.0XXA Overexertion from strenuous movement or load, initial encounter
CPT/HCPCS: 99283; J9999

== ENCOUNTER 2025-02-03 13:15 | Emergency (ER) | payer MEDICAID, SELFPAY ==
--- OUTSIDE RECORDS SUMMARY | 2023-12-15 03:00 | XMS_ITS ---
Author Organization [facility] Address [address] [place] [address] Care Team Providers Care Tray Checker Name Role Phone ObdulioJoaquin Primary Care Provider Unavailabl e Dannie Bui JR Unavailable [phone] Migration, Provider Unavailable Unavailable REASON FOR VISIT EMR-Ellis Encounters Encounter Location Date Provider Diagnosis Migrated_Facility 0 0 12/15/2023 Provider Migration Plan Of Treatment Medication Medication Name Sig Start Date Stop Date Notes Acetaminophen-Codeine 300-30 MG Oral Tablet 1 Tablet every 6 hours - Do Not Exceed 4 Tablets Per Day. 08/17/2023 09/16/2023 *Reorder from [facility] for eRx and Interaction Alerts* traMADol HCl 50 MG Tablet 1 Tablet every 6 hours PRN Oral 05/24/2023 06/23/2023 Progress Notes * DANIELLE Mary ADOB:[birth year] (34 yo F)Acc No.[id number]:12/15/2023 Patient: Mary POWERS :1990 A ge:33 Y S ex:Female Address:[address] [place] [address], [phone] * Refills Stop traMADol HCl Tablet, 50 MG, Oral, 1 Tablet every 6 hours PRN Stop Acetaminophen-Codeine 300-30 MG Oral Tablet, 1 Tablet every 6 hours - Do Not Exceed 4 Tablets Per Day. Subjective: * Chief Complaints: * E MR-Ellis * * Date:
--- OUTSIDE RECORDS SUMMARY | 2023-12-16 03:00 | XMS_ITS ---
Author Organization [facility] Address [address] [place] [address] Care Team Providers Care Radiology Special Procedure Tech Name Role Phone Joaquin Mak Primary Care Provider Dannie Alejandro JR [phone] Migration, Provider Unavailable Unavailable Allergies Allergen (clinical drug ingredient) Drug/Non Drug Allergy documented on EMR Reaction Allergy Type Onset Date Status amoxicillin Amoxicillin Hives Drug Allergy Act bert Latex Latex Rash Allergy Active REASON FOR VISIT EMR-Ellis Medications Medication SIG (Take, Route, Frequency, Duration) Notes Start Date End Date Status Topiramate *[facility]* Active Gabapentin *[facility]* Active Vitamin D3 *[facility]* Active Leflunomide *[facility]* Active tramadol *Reorder from [facility] for eRx and Interaction Alerts* Active [...] Mary NESBITT ADOB:[birth year] (34 yo F)Acc No.[id number]:12/16/2023 Patient: Mary POWERS :1990 A ge:33 Y S ex:Female Address:[address] [place] [address], [phone] Subjective: * Chief Complaints: * E MR-Ellis [...]
--- NOTE | 2025-02-03 13:19 | XRR_ITS ---
PROCEDURE INFORMATION: Exam: XR Chest Exam date and time: 02/03/2025 1:43 PM Age: 34 years old Clinical indication: Pain; Angina pectoris; Additional info: Cp TECHNIQUE: Imaging protocol: Radiologic exam of the chest. Views: 1 view. COMPARISON: CR XR chest 1V portable [id number] 10/28/2024 10:39 AM FINDINGS: Lungs: There is a vague 2.3 cm nodular opacity projecting over the left lung base which may be an artifact but I can not exclude a mass. Pleural spaces: Unremarkable. No pleural effusion. No pneumothorax. Heart/Mediastinum: Unremarkable. No cardiomegaly. Bones/joints: Unremarkable. XR/XR chest 1V portable [id number] IMPRESSION: There is a vague 2.3 cm nodular opacity projecting over the left lung base which may be an artifact but I can not exclude a mass. Otherwise unremarkable chest x-ray.
[2025-02-03 13:31] VITALS: BP 132/86; PULSE 86; RESP 16; TEMP 36.9; O2SAT 100; BMI 23.4
--- NOTE | 2025-02-03 13:44 | W.ED.EXTPRO ---
HPI - Extremity Problem General: Chief complaint: Extremity Problem,Nontraumatic Stated complaint: cp, retaining fluid, fever, cough Time Seen by Provider: 02/03/25 13:40 Source: patient Mode of arrival: ambulatory Limitations: no limitations History of Present Illness: 34-year-old female states she has had a sore throat over the last 2 days. She states she is also had a slight cough congestion states she feels like her whole body is swollen as well. She denies any vomiting diarrhea denies any fevers patient is not hypoxic Related Data Home Medications ?Medication ?Instructions ?Recorded ?Confirmed topiramate 200 mg tablet 200 mg PO BID 02/21/24 02/03/25 glecaprevir 100 mg-pibrentasvir 40 3 tab PO DAILY 11/10/24 02/03/25 mg tablet (Mavyret) loratadine 10 mg tablet 10 mg PO DAILY 11/10/24 02/03/25 metoprolol tartrate 25 mg tablet 25 mg PO BID 11/10/24 02/03/25 alprazolam 0.5 mg tablet 0.5 mg PO TID PRN Anxiety 02/03/25 02/03/25 hydrocodone 5 mg-acetaminophen 325 1 tab PO TID PRN Pain 02/03/25 02/03/25 mg tablet Previous Rx's ?Medication ?Instructions ?Recorded gabapentin 300 mg capsule 300 mg PO QID 30 days #120 caps 09/09/24 pantoprazole 40 mg tablet,delayed 40 mg PO DAILY #40 tabs 10/28/24 release (Protonix) ondansetron 4 mg disintegrating 4 mg PO TID PRN nausea and 12/08/24 tablet vomiting #30 tabs promethazine 25 mg tablet 25 mg PO TID PRN nausea #14 tabs 01/11/25 methocarbamol 750 mg tablet 750 mg PO Q6H PRN spasms #20 tabs 01/17/25 naproxen 500 mg tablet (Naprosyn) 500 mg PO BID PRN pain #20 tabs 01/17/25 Allergies Allergy/AdvReac Type Severity Reaction Status Date / Time methylprednisolone Allergy Severe ALGY-Anaphy Verified 02/03/25 13:41 laxis Latex, Natural Rubber Allergy Intermediate rash, hives Verified 02/03/25 13:41 amoxicillin Allergy ALGY-Hives Verified 02/03/25 13:41 cefdinir Allergy Unknown Verified 02/03/25 13:41 methotrexate AdvReac Intermediate migraines, Verified 02/03/25 13:41 N/V Review of Systems ENMT: Reports: throat pain PFSH ED PFSH: Medical History Bipolar disorder, unspecified Family history of colon cancer Bilateral pulmonary embolism Vapes nicotine containing substance Seizures Hx of migraines Ovarian mass, right Family history of psoriasis in father High risk medication use Inflammatory back pain Inflammatory arthritis Psychiatric care Other [facility] (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 Mosher at [facility] History of tubal ligation 12/2015- per Dr. Mosher at [facility] H/O removal of cyst [address] Mosher Family History Mother Stroke Hyperlipidemia Family history of thyroid problem Hypertension Cancer of tongue Father Degenerative disc disease Diabetes Unknown Breast cancer maternal great aunt Grandmother Ovarian cancer maternal Uterine cancer maternal Other Cancer Chronic kidney disease (CKD) Rheumatoid arthritis Denies family history of Lupus Social History Smoking and tobacco/nicotine status: never used tobacco/nicotine Second hand smoke exposure: No Alcohol intake: never Substance/Drug Use: never Physical Exam Const: COMMON NORMALS: no acute distress, patient oriented x3 and healthy appearing HENMT: COMMON NORMALS: normocephalic and atraumatic HEAD & SCALP: normocephalic and atraumatic THROAT: posterior oropharynx normal Neck/C-Spine: COMMON NORMALS: full ROM and supple Chest: COMMONS NORMALS: normal inspection of the chest and normal palpation of entire chest wall Resp: COMMON NORMALS: normal respiratory effort, No retractions, No use of accessory muscles and clear to auscultation bilaterally AUSCULTATION: clear to auscultation bilaterally Cardio: COMMON NORMALS: regular rate, regular rhythm and No murmurs present (Cardio) RATE: regular rate RHYTHM: regular rhythm Extremity: COMMON NORMALS: normal to inspection and full ROM Neuro: COMMON NORMALS: patient oriented x3, moves all extremities and no focal motor deficits Psych: COMMON NORMALS: mental status grossly normal, Normal thought process present and cooperative THOUGHT PROCESS: Normal thought process present Skin: COMMON NORMALS: no rashes or lesions noted and no wounds GENERAL SKIN EXAM: no rashes or lesions noted Course Vital Signs: Vital signs: Vital Signs Temperature 98.5 F 02/03/25 13:31 Pulse Rate 85 02/03/25 13:57 Respiratory Rate 16 02/03/25 13:31 Blood Pressure 121/81 02/03/25 13:57 Pulse Oximetry 94 02/03/25 14:22 Oxygen Delivery Me thod Room Air 02/03/25 14:22 MDM - Extremity (Nontraumatic) Medical Decision Making Patient presents here with sore throat along with cough likely viral syndrome she has been well-appearing here chest x-ray showed no acute abnormalities did inform her of the vague nodule seen she is to follow-up with PCP for further imaging in the future. Strep here was negative labs showed no significant abnormalities. On exam here she does not appear edematous. She is stable for discharge follow-up PCP return if worsening. Medical Records I reviewed the patient's medical records. Lab Data I reviewed the patient's lab results. 02/03/25 13:46 02/03/25 13:46 Radiology Impressions Chest X-Ray 02/03/25 13:19 IMPRESSION: There is a vague 2.3 cm nodular opacity projecting over the left lung base which may be an artifact but I can not exclude a mass. Otherwise unremarkable chest x-ray. Laboratory Results WBC 5.94 10^3/uL (3.29-11.43) 02/03/25 13:46 RBC 4.08 10^6/uL (3.85-5.65) 02/03/25 13:46 Hgb 10.20 g/dL (11.27-16.99) L 02/03/25 13:46 Hct 33.7 % (36-47) L 02/03/25 13:46 MCV 82.6 fl (85-98) L 02/03/25 13:46 MCH 25.0 pg (27-33) L 02/03/25 13:46 MCHC 30.3 g/dL (30-55) 02/03/25 13:46 RDW 16.1 % (12.1-15.1) H 02/03/25 13:46 Plt Count 425 10^3/cmm (157-399) H 02/03/25 13:46 MPV 9.9 fL (7.4-10.4) 02/03/25 13:46 Neut % (Auto) 38.5 % 02/03/25 13:46 Lymph % (Auto) 45.1 % 02/03/25 13:46 Bulloch % (Auto) 8.2 % 02/03/25 13:46 Eos % (Auto) 6.7 % 02/03/25 13:46 Baso % (Auto) 1.3 % 02/03/25 13:46 Neut # (Auto) 2.28 10^3/uL (1.8-7.7) 02/03/25 13:46 Lymph # (Auto) 2.7 10^3/uL (0.8-4.8) 02/03/25 13:46 Bulloch # (Auto) 0.5 10^3/uL (0.2-0.9) 02/03/25 13:46 Eos # (Auto) 0.4 10^3/uL (0.0-0.8) 02/03/25 13:46 Baso # (Auto) 0.1 10^3/uL (0.0-0.1) 02/03/25 13:46 Nucleated RBC % (auto) 0 % 02/03/25 13:46 Nucleated RBCs # 0.0 /100WBC 02/03/25 13:46 Sodium 139 mmol/L (136-145) 02/03/25 13:46 Potassium 4.5 mmol/L (3.5-5.1) 02/03/25 13:46 Chloride 104 mmol/L (98-107) 02/03/25 13:46 Carbon Dioxide 26 mmol/L (22-29) 02/03/25 13:46 Anion Gap 13.5 (5-19) 02/03/25 13:46 BUN 8 mg/dL (6-20) 02/03/25 13:46 Creatinine 0.7 mg/dL (0.5-0.9) 02/03/25 13:46 GFR Calculation 95.2 mL/min (90-130) 02/03/25 13:46 Glucose 101 mg/dL (65-115) 02/03/25 13:46 Calculated Osmolality 286 mOsm/kg (285-295) 02/03/25 13:46 Calcium 8.9 mg/dL (8.5-10.5) 02/03/25 13:46 Total Bilirubin 0.3 mg/dL (0.15-1.2) 02/03/25 13:46 AST 91 U/L (0-32) H 02/03/25 13:46 ALT 144 U/L (0-33) H 02/03/25 13:46 Alkaline Phosphatase 194 U/L (35-105) H 02/03/25 13:46 NT-Pro-B Natriuret Pep 188 pg/mL (0-125) H 02/03/25 13:46 Total Protein 6.2 g/dL (6.6-8.7) L 02/03/25 13:46 Albumin 4.3 g/dL (3.5-5.2) 02/03/25 13:46 Globulin 1.9 g/dL (1.3-4.6) 02/03/25 13:46 Group A Strep Rapid Negative (Negative) 02/03/25 14:20 All radiology interpretation(s) finalized by discharge Discharge Plan Discharge Patient Disposition: Home Clinical Impression: Upper respiratory infection Condition: Stable Prescriptions: No Action topiramate 200 mg tablet 200 mg PO BID gabapentin 300 mg capsule 300 mg PO QID 30 Days Qty: 120 3RF pantoprazole [Protonix] 40 mg tablet,delayed release (DR/EC) 40 mg PO DAILY Qty: 40 0RF ondansetron 4 mg tablet,disintegrating 4 mg PO TID PRN (Reason: nausea and vomiting) Qty: 30 0RF promethazine 25 mg tablet 25 mg PO TID PRN (Reason: nausea) Qty: 14 0RF methocarbamol 750 mg tablet 750 mg PO Q6H PRN (Reason: spasms) Qty: 20 0RF naproxen [Naprosyn] 500 mg tablet 500 mg PO BID PRN (Reason: pain) Qty: 20 0RF hydrocodone-acetaminophen 5-325 mg tablet 1 tab PO TID PRN (Reason: Pain) alprazolam 0.5 mg tablet 0.5 mg PO TID PRN (Reason: Anxiety) loratadine 10 mg tablet 10 mg PO DAILY metoprolol tartrate 25 mg tablet 25 mg PO BID Mavyret 100-40 mg tablet 3 tab PO DAILY Discharge Orders: Discharge ED (Routine); Ordered 02/03/25 Ordered By: Ramirez Elizabeth Referrals: Joaquin Mak MD [Primary Care Provider, Family Practice] - 4-7 days Discharge Diet: Advance as tolerated Discharge Activity: Resume usual activity Patient Instructions: Upper Respiratory Infection (ED) Print Language: Urdu Coding Level of Care Code ED Hand Braille Transcriber for Mark Berg
[2025-02-03 13:52] LABS: Hematocrit 33.7 % (36-47); Hemoglobin 10.20 g/dL (11.27-16.99); Mean Corpuscular HGB Conc 30.3 g/dL (30-55); Mean Corpuscular Hemoglobin 25.0 pg (27-33); Mean Corpuscular Volume 82.6 fl (85-98); Nucleated Red Blood Cells % 0 %; Platelet Count 425 10^3/cmm (157-399); Red Blood Count 4.08 10^6/uL (3.85-5.65); White Blood Count 5.94 10^3/uL (3.29-11.43)
[2025-02-03 13:57] VITALS: BP 121/81; PULSE 85; O2SAT 97
--- OUTSIDE RECORDS SUMMARY | 2025-02-03 14:19 | XMS_ITS | Clinical Summary ---
Author Organization [facility] Address [address] [place] [address] Care Team Providers Care Fine Sander Name Role Phone Joaquin Mak MD Primary Care Provider [phone] Allergies Active Allergy Reactions Criticality Noted Date [...] Comments Blood Pressure 119/75 12/29/2019 3:14 PM SOCIAL MEDIA SR STRATEGY MANAGER Pulse 75 12/29/2019 3:14 PM SOCIAL MEDIA SR STRATEGY MANAGER Temperature 37.2 C (98.9 F) 12/29/2019 2:03 PM SOCIAL MEDIA SR STRATEGY MANAGER Respiratory Rate 18 12/29/2019 3:14 PM SOCIAL MEDIA SR STRATEGY MANAGER Oxygen Saturation 99% 12/29/2019 3:14 PM SOCIAL MEDIA SR STRATEGY MANAGER Inhaled Oxygen Concentration - - Weight 47.6 kg (105 lb) 12/29/2019 2:03 PM SOCIAL MEDIA SR STRATEGY MANAGER Height 149.9 cm (4' 11 ) 12/29/2019 2:03 PM SOCIAL MEDIA SR STRATEGY MANAGER Body Mass Index 21.21 12/29/2019 2:03 PM SOCIAL MEDIA SR STRATEGY MANAGER Plan of Treatment Health Maintenance Due Date Last Done Comments DTAP/TDAP/TD VACCINES (1 - Tdap) 2008 HEPATITIS B VACCINES (1 of 3 - 19+ 3-dose series) 09/19 HPV/Cotest (21-29) 2010 CERVICAL CANCER SCREENING 10/03/2019 HPV/Cotest (30-65) 10/03/2019 PAP SMEAR 10/03/2019 INFLUENZA VACCINE (#1) 2024 HPV VACCINES (No Doses Required) Completed Insurance Care Teams Fine Sander Relationship Specialty Start Date End Date Joaquin Mak MD [address] [place] [id number] PCP - General Family Practice 12/29/19
--- OUTSIDE RECORDS SUMMARY | 2025-02-03 14:19 | XMS_ITS | Patient Health Record ---
Author Organization [facility] Address [address] [address] Care Team Providers Care Surface To Air Weapons Officer Name Role Phone Joaquin Mak Primary Care Provider Dannie Alejandro JR Unavailable [phone] Reason For Referral Reason Chronic Diarrhea c lose 11/25 Diagnosis 1 Chronic diarrhea (K5 2.9) Referring Provider First Name Joaquin Referring Provider Last Name Obduilo Referring Provider Speciality Family Med icine Referred Organization [facility] rnal Medicine & Infectious Disease Referred Provider Dannie Bui Referred Address [address] [facility],[address], Referred Provider Specialty Infectious D isease General Notes Jamila Mohamud 11/06 04:50:01 PM CDT > mailbox full, Jamila Mohamud 11/11/2024 10:15:58 AM CDT > mailbox full Referral Priority Routine Medications Medication SIG (Take, Route, Frequency, Duration) Notes Start Date End Date Status [facility]iramate [facility] Active Gabapentin *[facility]* Active Vitamin D3 *[facility]* Active Leflunomide *[facility]* Active tramadol *Reorder from [facility] for eRx and Interaction Alerts* Active [...] Coverage Start Date Coverage End Date Home [facility] Health Plan Medicaid Replacement [address] [place] [address] [id number] Mary Nesbitt Self - patient is the insured Medical (General) History Surgical History Surgery Date(Month/Year) Gynecological surgeries
--- OUTSIDE RECORDS SUMMARY | 2025-02-03 14:19 | XMS_ITS | Clinical Summary ---
Author Organization [facility] Address [address] [place] [address] Care Team Providers Care Grips Name Role Phone Joaquin Mak MD Primary Care Provider [phone] Allergies Active Allergy Reactions Criticality Noted Date [...] drink = 0.6 oz pur e alcohol) [facility] Utilities Answer Date Recorded In the [...] week 05/17/2023 How often do you attend pentecostal or restoration serv ices? 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
[2025-02-03 14:22] VITALS: O2SAT 94
[2025-02-03 14:31] LABS: Alanine Aminotransferase 144 U/L (0-33); Albumin Level 4.3 g/dL (3.5-5.2); Alkaline Phosphatase 194 U/L (35-105); Anion Gap 13.5 (5-19); Aspartate Amino Transferase 91 U/L (0-32); Blood Urea Nitrogen 8 mg/dL (6-20); Calcium 8.9 mg/dL (8.5-10.5); Carbon Dioxide 26 mmol/L (22-29); Chloride 104 mmol/L (98-107); Globulin 1.9 g/dL (1.3-4.6); Glucose 101 mg/dL (65-115); NT Pro B Type Natriuretic Pept 188 pg/mL (0-125); Osmolality Calculated 286 mOsm/kg (285-295); Potassium 4.5 mmol/L (3.5-5.1); Sodium 139 mmol/L (136-145); Total Protein 6.2 g/dL (6.6-8.7)
[2025-02-03 14:36] LABS: Rapid Strep A Test Negative (Negative)
--- NOTE | 2025-02-03 14:43 | PC.PHAR ---
Pt no longer taking tramadol or trazodone
== END 2025-02-03 14:49 | disposition home or self-care (01) ==
PROVIDERS: Emergency Provider Emergency Medicine; PCP Family Medicine
DX: J06.9 Acute upper respiratory infection, unspecified (principal); Z72.0 Tobacco use
CPT/HCPCS: 36415; 71045; 80053; 83880; 85025; 87081; 87880; 96372; 99285; J1885

== ENCOUNTER 2025-02-07 21:56 | Emergency (ER) | payer MEDICAID, SELFPAY ==
--- OUTSIDE RECORDS SUMMARY | 2023-12-15 03:00 | XMS_ITS ---
Author Organization [facility] Address [address] [place] [address] Care Team Providers Care Division Chief Name Role Phone ObdulioJoaquin Primary Care Provider Unavailabl e Dannie Bui JR Unavailable [phone] Migration, Provider Unavailable Unavailable REASON FOR VISIT EMR-Ellis Encounters Encounter Location Date Provider Diagnosis Migrated_Facility 0 0 12/15/2023 Provider Migration Plan Of Treatment Medication Medication Name Sig Start Date Stop Date Notes Acetaminophen-Codeine 300-30 MG Oral Tablet 1 Tablet every 6 hours - Do Not Exceed 4 Tablets Per Day. 08/17/2023 09/16/2023 *Reorder from [facility] for eRx and Interaction Alerts* traMADol HCl 50 MG Tablet 1 Tablet every 6 hours PRN Oral 05/24/2023 06/23/2023 Progress Notes * DANIELLE Mary ADOB:[birth year] (34 yo F)Acc No.[id number]:12/15/2023 Patient: Mary POWERS :1990 A ge:33 Y S ex:Female Address:[address] [place] [address], [phone] * Refills Stop traMADol HCl Tablet, 50 MG, Oral, 1 Tablet every 6 hours PRN Stop Acetaminophen-Codeine 300-30 MG Oral Tablet, 1 Tablet every 6 hours - Do Not Exceed 4 Tablets Per Day. Subjective: * Chief Complaints: * E MR-Ellis * * Date:
--- OUTSIDE RECORDS SUMMARY | 2023-12-16 03:00 | XMS_ITS ---
Author Organization [facility] Address [address] [place] [address] Care Team Providers Care Boring Machine Operator Name Role Phone Joaquin Mak Primary Care Provider Dannie Alejandro JR [phone] Migration, Provider Unavailable Unavailable Allergies Allergen (clinical drug ingredient) Drug/Non Drug Allergy documented on EMR Reaction Allergy Type Onset Date Status amoxicillin Amoxicillin Hives Drug Allergy Act bert Latex Latex Rash Allergy Active REASON FOR VISIT EMR-Ellis Medications Medication SIG (Take, Route, Frequency, Duration) Notes Start Date End Date Status Topiramate *[facility]* Active Gabapentin *[facility]* Active Vitamin D3 *[facility]f [facility]* Active Leflunomide *[facility]f [facility]* Active tramadol *Reorder from [facility] for eRx and Interaction Alerts* Active Social [...] Mary NESBITT ADOB:[birth year] (34 yo F)Acc No.[id number]:12/16/2023 Patient: Mary POWERS :1990 A ge:33 Y S ex:Female Address:[address] [place] [address], [phone] Subjective: * Chief Complaints: * E MR-Ellis [...]
--- OUTSIDE RECORDS SUMMARY | 2025-02-07 22:03 | XMS_ITS | Data Portability ---
Author Organization RILEY Masood Hurtado [facility] Address [address] [address] Care Team Providers Care Applications Support Analyst Name Role Phone CIRO MAK Primary Care Provider Assessment Encounter Date Assessment Date Assessment LastModified by Organization Details LastModified Time 10/03/2024 10/03/2024 Patient presents with symptoms of UTI. Results of dipstick were for UTI. Advised to drink clear fluids, Tylenol for pain and take prescribed medications as instructed. Patient encouraged to follow up within 1 week if not improving. [email or web address] Not available 10/03/2024 12:01:13 Plan of Treatment Reminders Order Date Submit Date Provider Last Modified By Organization Details Last Modified Time Details Appointments OFFICE VISIT 15 2025 01:45P Ani Mak MD Not available Not available Not available Lab CBC 2024 025 PRENTISS [facility], [address] [facility], [facility] 1, [place], [address], 11/14/2024 16:14:51 CMP, serum or plasma 2024 025 [facility] [facility], [address] [facility] [address], [address] [place], [address], 11/15/2024 10:24:25 urinalysi s, complete 2024 025 PRENTISS [facility], [address] [facility] 1, [place], [address], 10/03/2024 13:24:20 culture, urine 2024 025 JONATHANLoveLula [facility], [address] [place] [address] [address], [address], [place], [address], 10/05/2024 00:49:03 CBC 2024 025 JONATHAN [facility], [address] [place] [address], [address], [place], [address], 10/03/2024 13:04:30 iron, serum 2024 025 [email or web address] [facility], [address] [facility], [address], [place], [address], 10/10/2024 09:42:57 ferritin, serum or plasma 2024 025 JONATHANLoveLula [facility], [address] [place] [address] 248, [address], [place], [address], 10/05/2024 00:49:02 TIBC (total iron-bind ing capacity) , serum 2024 025 [email or web address] [facility], [address] [place] [address], [address], [place], [address], 10/10/2024 09:42:57 C diff screen, stool, reflex PCR 2024 025 [email or web address] [facility] ([facility]), [address] [place] [address], [address], 10/03/2024 12:13:51 infectiou s disease panel 2024 025 [email or web address] [facility] ([facility]), [address] [place], [address], 10/03/2024 12:13:50 hepatic function panel, serum 2024 025 PRENTISS [facility], [address] [facility], [address], [address], 09/17/2024 21:54:34 hepatitis C virus Ab, serum 2024 PRENTISS [employer] [facility], [address] [facility] [address], [address] [place], [address], 09/17/2024 21:54:36 hepatitis C genotype, serum or plasma 2024 [facility] ([facility]), [address] [place], [address], 09/17/2024 21:54:37 Referral gynecolog ist referral [address], [address] [place] [address], [address], 06/20/2024 21:06:22 Procedures None recorded. Surgeries None recorded. Imaging None recorded. Medication Orders Bactrim DS 800 mg-160 mg tablet 2024 [facility], [address] [place] [address], [address], 01/23/2025 05:01:51 mupirocin 2 % topical ointment 2024 025 [facility], [address] [place] [address], [address], 01/13/2025 15:13:08 alprazola m 0.5 mg tablet 2024 025 [facility], [address] [place] [address], [address], 12/18/2024 09:54:03 diclofena c sodium 75 mg tablet,de layed release 2024 025 [facility], [address] [place] [address], [address], 01/09/2025 17:55:16 metoprolo l tartrate 25 mg tablet 2024 [facility], [address] [place] [address], [address], 11/13/2024 13:31:51 loratadin e 10 mg tablet 2024 [facility], [address] [place] [address], [address], 11/03/2024 15:11:23 cephalexi n 500 mg capsule 2024 [facility], [address] [place] [address], [address], 06/30/2024 05:01:23 clindamyc in HCl 300 mg capsule 2024 [facility], [address] [place] [address], [address], 06/30/2024 05:01:23 Patient TargetsNo targets recorded. Patient Instructions Encounter Date Encounter Id Patient Instructions Last Modified By Organization Details Last Modified Time 06/13/2024 [id number] Cleared for surgical repair of the knee. [email or web address] Not available 06/13/2024 16:34:29 Reason for Referral Adapted Physical Education Aide Referral for Cy st of left ovary Referring Physician: Ciro Mak, Family Medicine, Encounter Date: 06/13/2024 Results Created Date Observation Date Name Description Value Unit Range Abnormal Flag Note LastModifiedBy Organization Detail LastModifiedTime 11/16/1911/15/2024 COMPR EHENS MERY METAB OLIC PANEL , PLASM A glucose 66 mg/dL 65-99 normal Fasti ng refer ence inter rex Not Available [employer] [facility] [address] [address], [place], [address], 11/15/2024 10:24:25 11/16/19 25 11/15/2024 COMPR EHENS MERY METAB OLIC PANEL , PLASM A urea nitrogen (BUN) 17 mg/dL 7-25 normal Not Available [address], [address], 11/15/2024 10:24:25 11/16/19 25 11/15/2024 COMPR EHENS MERY METAB OLIC PANEL , PLASM A creatinine 0.97 mg/dL 0.50-0 .97 normal Not Available [address], [address], 11/15/2024 10:24:25 11/16/1911/15/2024 COMPR EHENS MERY METAB OLIC PANEL , PLASM A eGFR 78 mL/mi n/1.7 3m2 > or = 60 normal Not Available [address], [address], 11/15/2024 10:24:25 11/16/1911/15/2024 COMPR EHENS MERY METAB OLIC PANEL , PLASM A BUN/creatini ne ratio SEE NOTE: (calc ) 6-22 Not Repor yogi: BUN and Creat inine are withi n refer ence range . Not Available [address], [address], 11/15/2024 10:24:25 11/16/1911/15/2024 COMPR EHENS MERY METAB OLIC PANEL , PLASM A sodium 141 mmol/ L 135-14 6 normal Not Available [address], [address], 11/15/2024 10:24:25 11/16/1911/15/2024 COMPR EHENS MERY METAB OLIC PANEL , PLASM A potassium 3.8 mmol/ L 3.4-4. 8 normal Not Available [address], [address], 11/15/2024 10:24:25 11/16/1911/15/2024 COMPR EHENS MERY METAB OLIC PANEL , PLASM A chloride 108 mmol/ L 98-110 normal Not Available [address], [address], 11/15/2024 10:24:25 11/16/19 25 11/15/2024 COMPR EHENS MERY METAB OLIC PANEL , PLASM A carbon dioxide 26 mmol/ L 20-32 normal Not Available [address], [address], 11/15/2024 10:24:25 11/16/1911/15/2024 COMPR EHENS MERY METAB OLIC PANEL , PLASM A calcium 9.7 mg/dL 8.6-10 .2 normal Not Available [address], [address], 11/15/2024 10:24:25 11/16/1911/15/2024 COMPR EHENS MERY METAB OLIC PANEL , PLASM A protein, total 7.0 g/dL 6.4-8. 4 normal Not Available [address], [address], 11/15/2024 10:24:25 11/16/1911/15/2024 COMPR EHENS MERY METAB OLIC PANEL , PLASM A albumin 4.1 g/dL 3.6-5. 1 normal Not Available [address], [address], 11/15/2024 10:24:25 11/16/1911/15/2024 COMPR EHENS MERY METAB OLIC PANEL , PLASM A globulin 2.9 g/dL_ (calc ) 2.2-4. 0 normal Not Available [address], [address], 11/15/2024 10:24:25 11/16/19 25 11/15/2024 COMPR EHENS MERY METAB OLIC PANEL , PLASM A albumin/glob ulin ratio 1.4 (calc ) 0.9-2. 3 normal Not Available [address], [address], 11/15/2024 10:24:25 11/16/1911/15/2024 COMPR EHENS MERY METAB OLIC PANEL , PLASM A bilirubin, total 0.3 mg/dL 0.2-1. 2 normal Not Available [address], [address], 11/15/2024 10:24:25 11/16/1911/15/2024 COMPR EHENS MERY METAB OLIC PANEL , PLASM A alkaline phosphatase 58 U/L 31-125 normal Not Available [facility] [employer] [address], [address], 11/15/2024 10:24:25 11/16/1911/15/2024 COMPR EHENS MERY METAB OLIC PANEL , PLASM A AST 22 U/L 10-30 normal Not Available [address], [address], 11/15/2024 10:24:25 11/16/1911/15/2024 COMPR EHENS MERY METAB OLIC PANEL , PLASM A ALT 18 U/L 6-29 normal NO COLLE CTION DATE RECEI BUBBA. WE HAVE USED THE DATE THE SPECI MEN WAS RECEI BUBBA BY THIS LABOR ATORY THE COLLE CTION DATE. IF THIS IS INCOR RECT, PLEAS E CONTA CT CLIEN T SERVI DAVEY. PHONE NUMBE R: [phone] Not Available [address], [address], 11/15/2024 10:24:25 09/13/19 25 09/17/2024 HEPAT IC FUNCT ION PANEL protein, total 7.3 g/dL 6.1-8. 1 normal Not Available [address], [address], 09/17/2024 21:54:34 09/13/1909/17/2024 HEPAT IC FUNCT ION PANEL albumin 4.4 g/dL 3.6-5. 1 normal Not Available [address], [address], 09/17/2024 21:54:34 09/13/1909/17/2024 HEPAT IC FUNCT ION PANEL globulin 2.9 g/dL_ (calc ) 1.9-3. 7 normal Not Available [address], [address], 09/17/2024 21:54:34 09/13/19 25 09/17/2024 HEPAT IC FUNCT ION PANEL albumin/glob ulin ratio 1.5 (calc ) 1.0-2. 5 normal Not Available [address], [address], 09/17/2024 21:54:34 09/13/1909/17/2024 HEPAT IC FUNCT ION PANEL bilirubin, total 0.5 mg/dL 0.2-1. 2 normal Not Available [address], [address], 09/17/2024 21:54:34 09/13/1909/17/2024 HEPAT IC FUNCT ION PANEL bilirubin, direct 0.2 mg/dL < or = 0.2 normal Not Available [address], [address], 09/17/2024 21:54:34 09/13/1909/17/2024 HEPAT IC FUNCT ION PANEL bilirubin, indirect 0.3 mg/dL _(arron c) 0.2-1. 2 normal Not Available [address], [address], 09/17/2024 21:54:34 09/13/19 25 09/17/2024 HEPAT IC FUNCT ION PANEL alkaline phosphatase 182 U/L 31-125 high Not Available [facility] [address] [address] [place], [address], 09/17/2024 21:54:34 09/13/19 25 09/17/2024 HEPAT IC FUNCT ION PANEL AST 77 U/L 10-30 high Not Available [facility] [address], [address], 09/17/2024 21:54:34 09/13/19 25 09/17/2024 HEPAT IC FUNCT ION PANEL ALT 624 U/L 6-29 high Verif ied by repea t darius sis. Not Available [facility] [address], [address], 09/17/2024 21:54:34 09/13/1909/17/2024 HEPAT ITIS C AB [...] nt activ e infec tion. Not Available [employer] [address] [place], [address], 09/17/2024 21:54:36 09/13/1909/17/2024 HCV RNA, QUANT ITATI VE REAL TIME PCR HCV RNA, quantitative real time PCR [id number] 0 IU/mL not detect ed high Not Available [facility] [facility] [address] [place], [address], 09/17/2024 21:54:37 09/13/19 25 09/17/2024 HCV RNA, QUANT ITATI VE REAL TIME PCR HCV RNA, quantitative real time PCR 6.30 log_I U/mL not detect ed high HCV RNA was detec yogi. This resul t provi daisy labor atory evide nce of a curre nt activ e HCV infec tion. Not Available [employer] [facility] [address] [address] [address], [place], [address], 09/17/2024 21:54:37 09/13/1909/17/2024 HCV RNA, QUANT ITATI VE REAL TIME PCR comment For more andrea chiu on this test, go to: http: //[facility] [place] caruso stdia gnost ics.c om/fa q/FAQ 22v1 (This link is being provi ded for infor matio nal/ educa concepcion l purpo ses only. ) This assay is inten ded for use as an aid in the diagn osis of HCV infec tion and the manag ement of HCV infec yogi patie nts under going anti- viral thera py. Not Available [employer] [facility] [address] [address] [address], [place], [address], 09/17/2024 21:54:37 09/13/1909/17/2024 HEPAT ITIS C VIRUS RNA GENOT YPE hepatitis C virus RNA genotype 3 normal REFER ENCE RANGE : NOT DETEC YOGI The metho ds used in this test are RT-PC R and DNA Seque ncing of the 5' UTR and core regio n of the HCV genom e. For addit ional nancy malin e refer to http: //hum[facility] aCruso stDia gnost ics.c om/fa q/HCV Genot yping [...] for clini arron purpo ses. Not Available [employer] [facility] [address] [address], [place], [address], 09/17/2024 21:54:37 10/04/1910/03/2024 CBC WBC 6.2 x10 4.0-10 .5 Not Available [facility] [address] [facility] 1, [place], [address], 10/03/2024 13:04:30 10/04/1910/03/2024 CBC RBC 3.56 x10 3.50-5 .50 Not Available [facility] [address] [facility] 1, [place], [address], 10/03/2024 13:04:30 10/04/1910/03/2024 CBC HGB 9.3 g/dL 12.0-1 6.0 low Not Available [facility] [address] [facility] 1, [place], [address], 10/03/2024 13:04:30 10/04/1910/03/2024 CBC HCT 31.0 % 37.0-4 7.0 low Not Available [facility] [address] [facility] 1, [place], [address], 10/03/2024 13:04:30 10/04/1910/03/2024 CBC MCV 87.2 fL 80.0-9 9.9 Not Available [facility] [address] [facility] 1, [place], [address], 10/03/2024 13:04:30 10/04/1910/03/2024 CBC MCH 26.2 pg 27.0-3 2.0 low Not Available [facility] [address] [facility] 1, [place], [address], 10/03/2024 13:04:30 10/04/1910/03/2024 CBC MCHC 30.1 g/dL 32.0-3 6.0 low Not Available [facility] [address] [facility] 1, [place], [address], 10/03/2024 13:04:30 10/04/19 25 10/03/2024 CBC RDW 16.8 % 11.5-1 4.5 high Not Available [facility] [address] [facility] 1, [place], [address], 10/03/2024 13:04:30 10/04/19 25 10/03/2024 CBC plt 382.2 x10 140.0- 451.0 Not Available [facility] [address] [facility] 1, [place], [address], 10/03/2024 13:04:30 10/04/1910/03/2024 CBC lymphocytes % 56.4 % 20.0-5 0.0 high Not Available [facility] [address] [facility] 1, [place], [address], 10/03/2024 13:04:30 10/04/19 25 10/03/2024 CBC granulcytes % 29.8 % 30.0-7 0.0 panic low Not Available [facility] [address] [facility] 1, [place], [address], 10/03/2024 13:04:30 10/04/19 25 10/03/2024 CBC monocytes % 9.3 % 2.0-16 .0 Not Available [facility] [address] [facility] 1, [place], [address], 10/03/2024 13:04:30 10/04/19 25 10/03/2024 CBC granulcytes# 1.8 x10 Not Guillermina ilable [facility] [address] [address], [place], [address], 10/03/2024 13:04:30 10/04/19 25 10/03/2024 CBC lymphocytes # 3.5 x10 Not Available [facility] [address] [address], [place], [address], 10/03/2024 13:04:30 10/04/19 25 10/03/2024 CBC monocytes # 0.6 x10 Not Avai lable [facility] [address], [place], [address], 10/03/2024 13:04:30 10/04/19 25 10/03/2024 URINA LYSIS WITH MICRO color YELLOW Not Available [facility] [address], [place], [address], 10/03/2024 13:24:20 10/04/19 25 10/03/2024 URINA LYSIS WITH MICRO clarity CLEAR Not Available [facility] [address], [place], [address], 10/03/2024 13:24:20 10/04/19 25 10/03/2024 URINA LYSIS WITH MICRO glu NEGATI VE Not Available [facility] [address], [place], [address], 10/03/2024 13:24:20 10/04/19 25 10/03/2024 URINA LYSIS WITH MICRO bili NEGATI VE Not Available [facility] [address], [place], [address], 10/03/2024 13:24:20 10/04/19 25 10/03/2024 URINA LYSIS WITH MICRO ket NEGATI VE Not Available [facility] [address], [place], [address], 10/03/2024 13:24:20 10/04/19 25 10/03/2024 URINA LYSIS WITH MICRO S.g >1.030 1.005- 1.025 high > Not Available [facility] [address], [place], [address], 10/03/2024 13:24:20 10/04/19 25 10/03/2024 URINA LYSIS WITH MICRO pH 6.0 5.0-7. 0 Not Available [facility] [address], [place], [address], 10/03/2024 13:24:20 10/04/19 25 10/03/2024 URINA LYSIS WITH MICRO pro 1+ Not Available [facility] [address], [place], [address], 10/03/2024 13:24:20 10/04/19 25 10/03/2024 URINA LYSIS WITH MICRO uro 0.2 E.U./D L Not Available [facility] [address], [place], [address], 10/03/2024 13:24:20 10/04/19 25 10/03/2024 URINA LYSIS WITH MICRO nit NEGATI VE Not Available [facility] [address], [place], [address], 10/03/2024 13:24:20 10/04/19 25 10/03/2024 URINA LYSIS WITH MICRO blo NEGATI VE Not Available [facility] [address], [place], [address], 10/03/2024 13:24:20 10/04/19 25 10/03/2024 URINA LYSIS WITH MICRO janice NEGATI VE Not Available [facility] [address], [place], [address], 10/03/2024 13:24:20 10/04/19 25 10/03/2024 URINA LYSIS WITH MICRO WBC 6-8 abnormal Not Available [facility] [address], [place], [address], 10/03/2024 13:24:20 10/04/19 25 10/03/2024 URINA LYSIS WITH MICRO RBC 2-3 Not Available [facility] [address] [facility] 1, [place], [address], 10/03/2024 13:24:20 10/04/19 25 10/03/2024 URINA LYSIS WITH MICRO epi cells 12-15 abnormal Not Available [facility] [address] [facility] 1, [place], [address], 10/03/2024 13:24:20 10/04/19 25 10/03/2024 URINA LYSIS WITH MICRO bacteria 3+++ MUCUS THREAD S abnormal Not Available [facility] [address] [facility] 1, [place], [address], 10/03/2024 13:24:20 10/04/19 25 10/03/2024 URINA LYSIS WITH MICRO other NG Not Available [facility] [address] [facility] 1, [place], [address], 10/03/2024 13:24:20 10/04/19 25 10/04/2024 IRON AND TOTAL IRON MUNA NG CAPAC ITY iron, total 16 mcg/d L 40-190 low Not Available [employer] [address] [address] [place], [address], 10/05/2024 00:49:01 10/04/19 25 10/04/2024 IRON AND TOTAL IRON MUNA NG CAPAC ITY iron binding capacity 488 mcg/d L_(ca lc) 250-45 0 high Not Available [employer] [address] [place], [address], 10/05/2024 00:49:01 10/04/19 25 10/04/2024 IRON AND TOTAL IRON MUNA NG CAPAC ITY % saturation 3 %_(ca lc) 16-45 low Not Available [employer] [address], [address], 10/05/2024 00:49:01 10/04/19 25 10/04/2024 KAREN TIN ferritin 8 NG/mL 16-154 low Not Available [facility] [address] [place], [address], 10/05/2024 00:49:02 10/04/19 25 10/04/2024 CULTU RE, URINE , ROUTI NE culture, urine, routine SEE NOTE CULTU RE, URINE , ROUTI NE Micro Numbe r: [id number] Test Statu s: Final Speci men [...] Cultu re Trans port Tube. Not Available [facility] [address] [place], [address], 10/05/2024 00:49:03 11/15/1911/14/2024 CBC WBC 10.1 x10 4.0-10 .5 Not Available [facility] [address] [facility] 1, [place], [address], 11/14/2024 16:14:51 11/15/1911/14/2024 CBC RBC 4.46 x10 3.50-5 .50 Not Available [facility] [address] [facility] [address], [place], [address], 11/14/2024 16:14:51 11/15/1911/14/2024 CBC HGB 11.2 g/dL 12.0-1 6.0 low Not Available [facility] [address] [facility] 1, [place], [address], 11/14/2024 16:14:51 11/15/19 25 11/14/2024 CBC HCT 37.2 % 37.0-4 7.0 Not Available [facility] [address] [facility] 1, [place], [address], 11/14/2024 16:14:51 11/15/19 25 11/14/2024 CBC MCV 83.4 fL 80.0-9 9.9 Not Available [facility] [address] [facility] 1, [place], [address], 11/14/2024 16:14:51 11/15/1911/14/2024 CBC MCH 25.1 pg 27.0-3 2.0 low Not Available [facility] [address] [facility] Cassie [facility] 1, [place], [address], 11/14/2024 16:14:51 11/15/1911/14/2024 CBC MCHC 30.1 g/dL 32.0-3 6.0 low Not Available [facility] [address] [facility] 1, [place], [address], 11/14/2024 16:14:51 11/15/1911/14/2024 CBC RDW 17.3 % 11.5-1 4.5 high Not Available [facility] [address] [facility] 1, [place], [address], 11/14/2024 16:14:51 11/15/1911/14/2024 CBC plt 280.8 x10 140.0- 451.0 Not Available [facility] [address] [facility] 1, [place], [address], 11/14/2024 16:14:51 11/15/1911/14/2024 CBC lymphocytes % 33.0 % 20.0-5 0.0 Not Available [facility] [address] [facility] 1, [place], [address], 11/14/2024 16:14:51 11/15/19 25 11/14/2024 CBC granulcytes % 55.8 % 30.0-7 0.0 Not Available [facility] [address] [facility] 1, [place], [address], 11/14/2024 16:14:51 11/15/19 25 11/14/2024 CBC monocytes % 6.8 % 2.0-16 .0 Not Available [facility] [address] [facility], [place], [address], 11/14/2024 16:14:51 11/15/19 25 11/14/2024 CBC granulcytes# 5.6 x10 Not Guillermina ilable [facility] [address] [facility], [place], [address], 11/14/2024 16:14:51 11/15/19 25 11/14/2024 CBC lymphocytes # 3.3 x10 Not Available [facility] [address] [facility], [place], [address], 11/14/2024 16:14:51 11/15/1911/14/2024 CBC monocytes # 0.7 x10 Not Avai lable [facility] [address] [facility] 1, [place], [address], 11/14/2024 16:14:51 05/28/19 25 05/26/2024 XR, knee, 3 view No observ ation record ed. [email or web address] [facility] [address] [facility] [address], [place], [address], 06/03/2024 14:40:14 06/13/19 25 06/12/2024 MRI, knee, w/o contr ast No observ ation record ed. [email or web address] [facility] [address] [place], [address], 06/27/2024 11:13:58 11/26/1911/13/2024 upper endos copy (EGD) with colon oscop y (PROC ) No observ ation record ed. [email or web address] Not Available 11/26 17:02:19 Result Notes None recorded. Problems Name Problem SNOMED Code Status Onset Date Resolution Date Notes Provider Name and Address Organization Details Recorded Time Depressive disorder 78820954 [facility] 17:49:55 Migraine 31105050 Active 2022 MIGRAI NE; Impres comfort: daily migrai ne. GEO rubio [facility] 17:51:24 Chronic pain syndrome 390759812 [facility] 2022 [facility] 17:49:55 Major depressive disorder 887179266 Active 2022 GEO GUZMAN [facility] 17:49:55 Bipolar disorder 30363470 Active 2022 [facility] 17:49:54 Essential hypertensio n 41847452 Active 2022 [facility] 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 17:49:54 Hyperesthes ia 58800143 Active 2022 [facility] 17:49:54 Gastroesoph ageal reflux disease 224399290 Active 2022 GEO GUZMANAZAR rubio, [facility] 5 17:49:54 Seizure disorder 335610789 Active 2022 GEO GUZMAN null, [facility] 5 17:49:54 Cyst of left ovary [id number] 9108 Active 2022 Ciro Mak MD [address] [place] [address], [address], [facility] 5 16:21:39 Generalized anxiety disorder 72710050 Active 2023 GEO GUZMANAZAR rubio, [facility] 5 17:49:54 Pulmonary embolism with pulmonary infarction 8881461794142 Active 2023 GEO GUZMANAZAR [facility] 5 17:50:09 Hypercoagul ability state 61110408 Active 2023 GEO GUZMANAZAR rubio, [facility] 5 17:49:55 Chronic diarrhea 035300480 Active 2023 [facility] 5 17:49:54 Genital herpes simplex 44056268 Active 2023 GEO GUZMANAZAR rubio, [facility] 5 17:49:54 Derangement of right knee 4212849502244 9109 Active 2024 GEO rubio, [facility] 5 17:52:05 Bacterial urinary infection 184069493 Active 2024 Ciro Mak MD [address] [place] [address], [phone] 5, [facility] 5 16:21:00 Rupture of anterior cruciate ligament of right knee 3183952825165 9103 Active 2024 Ciro Mak MD [address] [place] [address], [address] [place] [address] 5, [facility] 16:22:23 Acute hepatitis C 983126434 Active 2024 Ciro Mak MD [address] [place] [address] 5, [facility] 14:23:53 Inflammator y disease of liver 652074367 Active 2024 Ciro Mak MD [address] [place] [address] 5, [facility] 14:24:06 Generalized abdominal pain 143932160 Active 2024 Ciro Mak MD [address] [place] [address] 5, [facility] 14:25:57 Supraventri cular tachycardia 3219370 Active 2024 Ciro Mak MD [address] [place] [address] 5, [facility] 12:01:26 Acute diarrhea 758542397 Active 2024 Ciro Mak MD [address] [place] [address], [facility] 12:06:09 Iron deficiency anemia due to blood loss 562621192 Active 2024 Ciro Mak MD [address] [place] [address], [facility] 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 Procedures Surgical History Date Name Laterality Status Provider Name and Address Organization Details Recorded Time Cholecystectomy completed [facility] [place] Humphries 06/11/2023 15:56:58 [facility]:57[facility] 15:57:06 removal of displaced [facility]uterine [facility] 15:57:27 [facility] 15:57:42 [facility]ar[facility] completed [facility] 06/11/2023 15:57:47 right oophorectomy completed Rody varner [facility] 10/10/2023 10:30:05 Imaging Results None recorded. Procedure Notes None recorded. Medical Equipment None Reported. Allergies Allergen ID Allergen Name Allergen Category Reaction Reaction Severity Criticality Documentation Date Start Date Code Code System Note Provider Name and Address Organization Details Recorded Time 178 amoxicill in medicatio n hives mild low 06/07/2022 723 RxNorm [facility] 4 15:52:07 1789 latex environme nt,medica tion hives mild low 06/07/2022 32352 91 RxNorm Wilma Pritchett [facility] 4 15:52:19 57596 methotrex ate medicatio n headache vomiting moderate mild low 11/21/2022 6851 RxNorm Wilma Pritchett [facility] 4 15:52:27 98764 methylpre dnisolone medicatio n tachycard ia moderate low 06/11/2023 6902 RxNorm Wilma Pritchett [facility] 4 15:54:04 46374 Cipro medicatio n chest pain Not available high 10/03/2024 75453 3 RxNorm SOB as well. [facility] 5 11:25:18 Medications Name Sig Start Date Stop Date Status Note LastModified by Organization Details LastModified Time fluoxetin e 40 mg capsule TAKE ONE CAPSULE BY MOUTH DAILY 01/09 completed Not Available Not Available Not Available cyclobenz aprine 10 mg tablet TAKE ONE TABLET BY MOUTH THREE TIMES DAILY as needed for muscle SPASMS active Not Available Not Available No t Available prednison e 10 mg tablet TAKE [...] No t Available promethaz ine 25 mg rectal supposito ry [...] Salvador; 0; Recorded 05/09/19 10:52AM by Geo Guzman, [...] Not Available No t Available alprazola m 0.25 mg tablet TAKE ONE TABLET BY MOUTH THREE TIMES DAILY as needed for 30 DAYS active Not Available Not Available No t Available famotidin e 20 mg tablet TAKE 1 TABLET BY MOUTH ONCE DAILY 11/14 completed Not Available Not Available Not Available methocarb rabia 750 mg tablet TAKE ONE TABLET BY MOUTH EVERY 6 HOURS as needed for SPASMS active Not Available Not Available No t Available methotrex ate sodium 2.5 mg tablet [...] Available promethaz ine 25 mg tablet TAKE ONE TABLET BY MOUTH THREE TIMES DAILY as needed for nausea active Not Available Not Available No t Available docusate sodium 100 mg capsule TAKE [...] t Available mupirocin 2 % topical ointment apply A SMALL AMOUNT TO THE affected AREA THREE TIMES DAILY active Not Available Not Available No t Available diclofena c sodium 50 mg tablet,de layed [...] t Available naproxen 500 mg tablet TAKE ONE TABLET BY MOUTH TWICE DAILY NEEDED FOR PAIN active Not Available Not Available No t Available oxycodone 5 mg tablet TAKE ONE TABLET BY MOUTH EVERY 6 HOURS NEEDED FOR PAIN 05/26 completed Not Available Not Available Not Available Bactrim DS 800 mg-160 mg tablet Take 1 tablet twice a day by oral route for 7 days. 01/23 completed Not Available Not Available Not Available metoprolo l tartrate 25 mg tablet TAKE [...] citalopra m daily 01/16 completed From [facility]; 0; Recorded 05/09/19 23 10:54AM by Geo Gumzan, Office Visit; Not Available Not Available Not [...] Available BuSpar daily 01/16 completed From [facility]; 0; Recorded 05/09/19 10:49AM by Geo Guzman, Office Visit; Not Available Not Available Not Available ondansetr on three times daily, as needed 02/16 completed Recorded 05/09/19 10:39AM by Geo Guzman, Office Visit; Refill [...] about refills only to the pharmaci [facility] cruz d r[facility] [place] state standing order at active Not Available [...] Updated DateTime 06/13/2024 149.86 cm 23.4 kg/m2 19320.71 g 100 /min 110/78 mm[Hg] SONIYA KRUEGER [facility] 5 15:55:12 Date Recorded Body height Body mass index (BMI) Body weight Oxygen saturation Heart rate Systolic And Diastolic Provider Name and Address Organization Details Last Updated DateTime 07/25/202 5 149.86 cm 22 kg/m2 54380.5 7 g 100 % 94 /min 110/80 mm[Hg] [facility] 5 14:05:44 Date Recorded Body height Body mass index (BMI) Body weight Oxygen saturation Heart rate Systolic And Diastolic Provider Name and Address Organization Details Last Updated DateTime 5 149.86 cm 23 kg/m2 24383.5 3 g 98 % 120 /min 124/78 mm[Hg] [facility] 5 11:28:19 Date Recorded Body height Body mass index (BMI) Body weight Oxygen saturation Heart rate Systolic And Diastolic Provider Name and Address Organization Details Last Updated DateTime 5 149.86 cm 23.2 kg/m2 40263.1 2 g 97 % 67 /min 100/70 mm[Hg] [facility] 5 15:31:09 Date Recorded Body height Body mass index (BMI) Body weight Respiratory rate Heart rate Oxygen saturation Body temperature Systolic And Diastolic Provider Name and Address Organization Details Last Updated DateTime 5 149.86 cm 23.7 kg/m2 07986.7 1 g 16 /min 87 /min 99 % 98.4 [degF] 128/76 mm[Hg] CHASE KWAKU [facility] 5 17:49:13 Social History Question Answer Notes LastModified by [employer] Details LastModified Time Tobacco Smoking Status Never Smoker [facility]ma Shreyas [facility] 06/11/2023 15:56:49 What Was The Date Of Your Most Recent Tobacco Screening? 01/09/2025 [email or web address] Information not available 01/09/2025 Sex: Unknown Functional Status Question Answer Note LastModified by [employer] Details LastModified Time Do you use any [...] Recorded Time Tdap 3 completed GEO rubio [facility] 02/16/2023 15:11:53 Influenza, split virus, trivalent, preservative 6 completed GEO rubio [facility] 02/16/2023 15:11:53 Influenza, split virus, quadrivalent, preservative 9 completed [facility]O GUZMAN [facility] 02/16/2023 15:11:52 Past Encounters Encounter ID Performer Location Encounter Start Date Encounter Closed Date Diagnosis/Indication Diagnosis SNOMED-CT Code Diagnosis ICD10 Code Diagnosis IMO Codes Diagnosis Note [id number] Ciro Mak MD [facility] ([facility]) [address] [place] [address] [id number] 5 06/07/2022 10:06:39 06/13/2022 11:39:35 Low back pain 841881115 M54.51 Major depr essive disorder 193393991 F32.9 Bipolar disorder 4486948 4 F31.9 Essential hypertension 29901174 I10 Chronic pain syndrome 37 2673914 G89.4 [id number] Ciro Mak MD [facility] ([facility]) [address] [place] [address] [phone] 5 07/07/2022 10:03:35 07/07/2022 13:02:37 Livedo reticularis 408312063 R23.1 unknown cause on her back. Will check MANOJ, ESR, CRP and other tests on return. Postoperat mery hematoma formation 612487946 T81.89XS She has a tender hematoma in left low abdomen area. Will watch it for now. [id number] Ciro Mak MD [facility] ([facility]) [address] [place] [address] [id number] 5 09/06/2022 14:41:46 09/06/2022 17:12:15 Low back pain 873644114 M54.50 stable Depressive disorder 3548 9007 F32.9 Hyperesthesia 05659367 R 20.3 LLQ from Surgical wound. Not severe. Disorder of skin 9477192 5 L98.9 unusual presentati on of skin of back. WIll check for autoimmune disease and refer to dermatolog y. [id number] Yves Dimas MD [facility] ([facility]) [address] [place] [address] [phone] 5 11/21/2022 14:36:35 11/30/2022 14:58:13 Nausea 229246686 R11.0 Acute uppe r respiratory infection 08282673 J06.9 Testing was negative. Likely upper respirator y infection. Recommend fluids, rest, and over-the-c ounter medication for symptom management . Anticipate this will improve over the next 7 to 10 days. [id number] Ciro Mak MD [facility] ([facility]) [address] [place] [address] [id number] 5 01/16/2023 16:02:07 01/16/2023 18:11:25 Pain of right ankle joint 7600075358 0814403 M25.571 re took xray of foot due to increased pain to make sure an occult fracture was not missed. Gastroesop hageal reflux disease 292886485 K21.9 Nausea and vomiting 1693 1999 R11.2 [id number] Ciro Mak MD [facility] ([facility]) [address] [place] [address] [id number] 5 02/16/2023 14:56:52 02/16/2023 16:01:58 Abdominal pain 19938569 R10.9 CT abdomen demonstate d moderate stool in colon and left ovarian cyst x 2. Cyst of left ovary 81362 35103 5329197 N83.202 Low back pain 094486404 M54.50 stable [id number] Ciro Mak MD [facility] ([facility]) [address] [place] [address] [id number] 5 05/07/2023 14:38:55 05/07/2023 16:31:02 Dysuria 46228132 R30.0 Recurrent urinary tract infection 317489993 N39.0 Pain of le ft knee joint 4201334428 46655 M25.665 [id number] GLENN GARCIA [facility] ([facility]) [address] [place] [address] [id number] 5 06/11/2023 15:20:14 06/12/2023 18:13:09 Pain of right hand 1784498058 19627 M79.641 Contusion of right hand 2431518415 8288229 S60.221A Xray negative. Modified volar splint applied in clinic today for comfort. Patient is to remove the splint 2-3 times a day and perform slow ROM exercises to the fingers. Discussed RICE.F/u in 5-7 days if symptoms persist for re-evaluat ion.Use tylenol/mo eddie for discomfort . [id number] Ciro Mak MD [facility] ([facility]) [address] [place] [address] [id number] 5 06/12/2023 13:46:25 06/12/2023 16:44:34 Low back pain 834630608 M54.50 worsening. She is performing back exercises [...] wall sit exercises. Pain of right hand 43721 76108 53229 M79.641 continue splinting for comfort and ice as needed. [id number] Ciro Mak MD [facility] ([facility]) [address] [place] [address] [id number] 5 07/02/2023 14:43:21 07/02/2023 15:25:48 Pain in pelvis 53974974 R10.2 Vaginitis 17943758 N76.0 Low back pain 566082473 M54.50 Chronic, She is continuing her low back exercises. Generalize d anxiety disorder 56916610 F41.1 [id number] Ihsan Mora DO [facility] ([facility]) [address] [place] [address] [id number] 5 07/30/2023 08:19:43 07/30/2023 08:41:27 Rib pain 912660759 R07.[address] of [address], but pain more severe than expected with high risk factors, will get xray. start tizanidine prn. Return to office with no improvemen t or any problems. Go to ER with severe worsening or severe problems. [id number] Ciro Mak MD [facility] ([facility]) [address] [place] [address] [id number] 5 08/08/2023 11:26:52 08/08/2023 12:35:04 History of pulmonary embolus 169359999 Z86.711 diagnosed last week. On Eliquis 10mg bid and will start 5mg bid next week. Pulmonary embolism with pulmonary infarction 5554018891 102 I26.99 small area of infarction left lung base. Hypercoagu lability state 37294432 D68.[address] peding with hematologi st/oncolog ist for further evaluation of this. [id number] Ciro Mak MD [facility] ([facility]) [address] [place] [address] [id number] 5 09/17/2023 09:59:04 09/17/2023 11:14:13 Abdominal pain 24403041 R10.9 CT abdomen was negative Diarrhea 84990325 R19.7 possible C Diff Hematochezia 662136843 K 92.1 on anticoagul ants. Pulmonary embolism with pulmonary infarction 6696364913 102 I26.99 small area of infarction left lung base. Mixed anxi ety and depressive disorder 303677345 F41.8 Generalize d anxiety disorder 26928501 F41.1 [id number] GLENN GARCIA [facility] ([facility]) [address] [place] [address] [id number] 5 10/10/2023 10:15:36 10/10/2023 11:14:07 Sore throat 512903059 J02.9 Acute laryngitis 7787636 J04.0 Push cold oral fluids including Popsicles. Alternate tylenol/mo eddei for fever or discomfort .May use throat lozenges, chlorasept ic spray, or saltwater gargles.If you develop worsening symptoms such as unable to swallow, persistant fever, or concerns arise then return for re-eval. [id number] Ciro Mak MD [facility] ([facility]) [address] [place] [address] [id number] 5 10/15/2023 09:54:42 10/15/2023 10:52:42 Abdominal pain 25327130 R10.9 CT abdomen was negative Scheduled with Dr. Chamberlain for Colonoscop y and EGD at the end of October. Still some small amount of blood in stools. Allergic rhinitis 801573 04 J30.9 Gastroesop hageal reflux disease 837296189 K21.9 Hypercoagu lability state 88976410 D68.59 Pulmonary embolism with pulmonary infarction 0556195999 102 I26.99 [id number] Ciro Mak MD [facility] ([facility]) [address] [place] [address] [id number] 5 11/06/2023 14:02:32 11/08/2023 11:28:33 Chronic diarrhea 974357376 K52.9 Colonoscop y to be done next week. Vesicular eruption 51952 008 R23.8 Possibly herpes vs just irritation from frequent diarrhea. [id number] Yves Dimas MD [facility] ([facility]) [address] [place] [address] [id number] 5 01/10/2024 13:17:29 01/10/2024 14:26:25 Viral gastroenteritis 032269783 A08.4 Likely exacerbate d from viral gastroente ritis. Less likely to be pancreatit is or something similar from her recent alcohol use. The patient primarily needs a refill on her Zofran which was done today. Encouraged the patient to continue with clear liquids and when feeling better to start bland diet. With PCP if symptoms are not improving. [id number] Ciro Mak MD [facility] ([facility]) [address] [place] [address] [id number] 5 01/16/2024 10:20:16 01/16/2024 16:16:10 Diarrhea 97612699 R19.7 Chronic C Diff. SHe has an appt. with an ID physician in January to work on her plan. Low back pain 939300079 M54.50 Chronic, She is continuing her low back exercises. Acute gastroenteritis 69 727644 K52.9 Acute sinusitis 27784401 J01.90 [id number] Ihsan Mora DO [facility] ([facility]) [address] [place] [address] [id number] 5 05/26/2024 16:25:11 05/26/2024 17:22:02 Pain of right knee joint 5784651876 40786 M25.561 now chronic, since injury in feb 2024. xray today with no acute bony problems.c oncern for ligamental damage vs meniscal injury. pt to rest, ICE, start nsaids since she is not taking any. continue brace. f/u with pcp to consider further imaging vs PT vs ortho referral.c ounseled Cellulitis of right thumb 6443942517 7296746 L03.011 2/2 dog bite. will start abx, she is UTD on tetnus. .cx [id number] Ciro Mak MD [facility] ([facility]) [address] [place] [address] [id number] 5 05/28/2024 14:30:26 05/29/2024 08:37:16 Derangement of right knee 1387318500 9437066 M23.91 her knee pain has been persistant for 3 months since her injury. [id number] Ciro Mak MD [facility] ([facility]) [address] [place] [address] [id number] 5 06/13/2024 15:39:48 06/13/2024 16:35:40 Bacterial urinary infection 721083657 N39.0 A49.9 3769989 Improved but switching antibiotic s due to bite. Cyst of left ovary 56901 47557 9057314 N83.202 517651 Rupture of anterior cruciate ligament of right knee 6546160952 3628899 S83.511D [id number] surgery scheduled in June. She is cleared for surgical repair of her knee. Dog bite - wound 9324156 05 W54.0XXA L08.9 2986480 MIld swelling and erythema of the thumb. [id number] Ciro Mak MD [facility] ([facility]) [address] [place] [address] [id number] 5 09/12/2024 13:51:45 09/12/2024 14:33:06 Acute hepatitis C 058105905 B17.10 [id number] Diagnosed at [facility]. Genotype not done. Inflammato ry disease of liver 398207712 K75.9 98078 elevated LFT's from tylenol overuse with recent diagnosis of Hepatitis C. Was not evident one year ago with negative test in July,. Generalize d abdominal pain 052862827 R10.84 024378 RUQ and generalize d. 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 77225 [id number] Ciro Mak MD [facility] ([facility]) [address] [place] [address] 11/14/2024 14:50:41 11/14/2024 16:00:08 Seizure 73624448 R56.9 54584 Acute hemo rrhagic gastritis 1035453 K29.01 62822644 Pain of mu ltiple joints 39540408 M25.50 890271 Generalize d anxiety disorder 86169016 F41.1 Iron defic iency anemia due to blood loss 059725938 D50.0 178531 [id number] GLENN GARCIA [facility] ([facility]) [address] [place] [address] 01/09/2025 17:36:42 01/09/2025 18:07:35 Acute folliculitis 905915577 L73.9 81527731 Health Concerns Section Related Observation LastModified by Organization Detai ls LastModified Time None Recorded Concern Status LastModified by Organization Details LastModified Time None Recorded Advance Directives Directive None Recorded Payers Insurance Date Sequence Insurance Name Policy Number Policy Tovar Covered Member ID Tovar Member ID Guarantor Name 01/27/2025 [place] Mary Nesbitt [id number] Mary Nesbitt 01/27/2025 [place] [facility] (INSTITUTIONAL) Mary eNsbitt [id number] Mary Nesbitt 02/03/[address] [facility] INSTITUTIONAL (MEDICAID HMO) Mary Nesbitt [id number] Mary Nesbitt 02/03/2025 1 [facility] (MEDICAID HMO) Mary Nesbitt [id number] Mary Nesbitt 05/26/2024 [facility] (MEDICAID HMO) Mary Nesbitt [id number] Mary Nesbitt Notes Date Note Type Note Provider Name and Address Organization Details Recorded Time 09/12/2024 text/html Went to ER on 09/06/24 and was admitted to ICU due to her liver enzymes were elevated.Was told at the hospital that she had Hep C. Would like to discuss. Ciro Mak MD [address] [place] [address], [phone], [facility] 09/12/2024 14:32:01 10/03/2024 text/html Lower Urinary Tr [...] Dr. Madsen that she may need a pattern mechanic due to high HR. Ciro Mak MD [address] [place] [address], [phone], [facility] 10/03/2024 12:17:50 11/14/2024 text/html Generalized Anxi ety DisorderReported by PatientHPIFor associated symptoms, patient reportsdifficulty concentrating,difficul ty controlling worry,excess anxiety,tachycardia, andhigh irritability. For severity, patient reportsmild. Had a seizure yesterday. Also had a scope done yesterday at [facility].She was told that she needed to have her RBCs checked out per hospital.Would like to discuss her sugar levels as well, her sugar was checked yesterday and it was 84 after eating lunch. Ciro Mak MD [address] [place] [address], [phone], [facility] 11/14/2024 15:57:59 01/09/2025 text/html Skin LesionRepor yogi by PatientHPIFor associated symptoms, patient reportsfever,lesions multiplying,fatigue, andmyalgia. For location, patient reportsaxillaandgroin. For quality, patient reportspainful,drainag e,growing __, andbecoming more symptomatic. For severity, patient reportsmoderate. For duration, patient reports3 weeks.ROS as noted in the HPI walk-in GLENN GARCIA [address] [place] [address], [phone], [facility] 01/09/2025 18:01:46 OBGyn Episode No OBEpisode recorded.
--- OUTSIDE RECORDS SUMMARY | 2025-02-07 22:03 | XMS_ITS | Continuity of Care Document ---
Author Organization [facility], [facility] ([facility]) Address [address] [place] [address] Care Team Providers Care Fountain Server Name Role Phone CIRO CORTÉS Primary Care Provider Assessment No assessment recorded. Plan of Treatment Reminders Order Date Submit Date Provider Last Modified By Organization Details Last Modified Time Details Appointments OFFICE VISIT 15 2025 01:45P Ani Cortés MD Not available Not available Not available Lab None recorded. Referral None recorded. Procedures None recorded. Surgeries None recorded. Imaging None recorded. Medication Orders Bactrim DS 800 mg-160 mg tablet 2024 025 [facility], [address] [place] [address], [id number], 01/23/2025 05:01:51 mupirocin 2 % topical ointment 2024 025 [facility], [address] [place] [address], [id number], 01/13/2025 15:13:08 Patient TargetsNo targets recorded. Patient InstructionsNo instructions recorded. Reason for Referral None Reported. Problems Name Problem SNOMED Code Status Onset Date Resolution Date Notes Provider Name and Address Organization Details Recorded Time Depressive disorder 66080378 Active 2022 GEO rubio [facility] 17:49:55 Migraine 54530615 Active 2022 MIGRAI NE; Impres comfort: daily migrai ne. GEO VILLAGRANAZAR rubio, [facility] 5 17:51:24 Chronic pain syndrome 482388304 Active 2022 GEO MORA null, [facility] 5 17:49:55 Major depressive disorder 297308864 Active 2022 GEO MORA null, [facility] 5 17:49:55 Bipolar disorder 01551962 Active 2022 GEO MORA null, [facility] 5 17:49:54 Essential hypertensio n 69923172 Active 2022 GEO MORAAZAR rubio, [facility] 5 17:49:55 Livedo reticularis 888115727 Active 2022 GEO MORA null, [facility] 5 17:49:54 Hyperesthes ia 92398158 Active 2022 GEO MORA null, [facility] 5 17:49:54 Gastroesoph ageal reflux disease 963557437 Active 2022 GEO MORA null, [facility] 5 17:49:54 Seizure disorder 006113367 Active 2022 GEO MORA null, [facility] 5 17:49:54 Cyst of left ovary 0019987096046 9108 Active 2022 Ciro Cortés MD [address] [place] [address], [phone], [facility] 5 16:21:39 Generalized anxiety disorder 41794878 Active 2023 GEO MORA null, [facility] 17:49:54 Pulmonary embolism with pulmonary infarction 7851461809272 Active 2023 GEO rubio, [facility] 17:50:09 Hypercoagul ability state 34515254 Active 2023 GEO MORA [facility], [facility] 17:49:55 Chronic diarrhea 385768393 Active 2023 GEO VILLAGRANRIS ramiro, [facility] 17:49:54 Genital herpes simplex 05602228 Active 2023 GEO MORA [facility], [facility] 17:49:54 Derangement of right knee 3669643002569 9109 Active 2024 GEO MORA [facility] 17:52:05 Bacterial urinary infection 166213965 Active 2024 Ciro Cortés MD [address] [place] [phone] , [facility] 16:21:00 Rupture of anterior cruciate ligament of right knee 2336556455402 9103 Active 2024 Ciro Cortés MD [address] [place] [phone], [facility] 16:22:23 Acute hepatitis C 355599893 Active 2024 Ciro Cortés MD [address] [place] [phone] , [facility] 14:23:53 Inflammator y disease of liver 255763563 Active 2024 Ciro Cortés MD [address] [place] [phone], [facility] 5 14:24:06 Generalized abdominal pain 227688053 Active 2024 Ciro Cortés MD [address] [place] [address], [address] [place] [address] 5, [facility] 14:25:57 Supraventri cular tachycardia 7149124 Active 2024 Ciro Cortés MD [address] [place] [address], [address] [place] [address] 5, [facility] 12:01:26 Acute diarrhea 595766201 Active 2024 Ciro Cortés MD [address] [place] [address], [phone], [facility] 12:06:09 Iron deficiency anemia due to blood loss 106515446 Active 2024 Ciro Cortés MD [address] [place] [address], [phone], [facility] 12:10:20 Allergic rhinitis caused by pollen 99484301 Active 2024 Ciro Cortés MD [address] [place] [address], [phone], [facility] 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 12:16:10 Seizure 27426393 Active 2024 Ciro Cortés MD [address] [place] [phone] 5, [facility] 15:47:06 Acute hemorrhagic gastritis 3195888 Active 2024 Ciro Cortés MD [address] [place], [phone], [facility], LRocLJudie 15:47:27 Pain of multiple joints 61226601 Active 2024 Ciro Cortés MD [address] [place], [phone], [facility], LRocL[facility]ie 15:49:51 Problem Notes None recorded. Procedures Surgical History Date Name Laterality Status Provider Name and Address Organization Details Recorded Time Cholecystectomy completed [facility] 06/11/2023 15:56:58 Tubal Ligation completed [facility] 06/11/2023 15:57:02 Total Hysterectomy completed [facility], [facility]oc[facility]oc[facility] 06/11/2023 15:57:06 removal of displaced intrauterine contraceptive device completed [facility] 06/11/2023 15:57:27 Ovarian Cystectomy completed [facility], [facility] 06/11/2023 15:57:42 Laparoscopy completed [facility] 06/11/2023 15:57:47 right oophorectomy completed Rody Moody [facility] 10/10/2023 10:30:05 Imaging Results None recorded. Procedure Notes None recorded. Medical Equipment None Reported. Allergies Allergen ID Allergen Name Allergen Category Reaction Reaction Severity Criticality Documentation Date Start Date Code Code System Note Provider Name and Address Organization Details Recorded Time 1788 amoxicill in medicatio n hives mild low 06/07/2022 723 RxNorm Wilma Pritchett [facility] 15:52:07 1789 latex environme nt,medica tion hives mild low 06/07/2022 02943 91 RxNorm Wilma Pritchett [facility] 4 15:52:19 44629 methotrex ate medicatio n headache vomiting moderate mild low 11/21/2022 6851 RxNorm Wilmanamrata Pritchett [facility] 4 15:52:27 86922 methylpre dnisolone medicatio n tachycard ia moderate low 06/11/2023 6902 RxNorm Wilma Pritchett [facility] 4 15:54:04 74238 Cipro medicatio n chest pain Not available high 10/03/2024 06133 3 RxNorm SOB as well. GEO MORA [facility] 5 11:25:18 Medications Name Sig Start [...] daily 01/16 completed I; 0; Recorded 05/09/19 23 10:52AM by Geo [...] Available citalopra m daily 01/16 completed From [facility]; 0; Recorded 05/09/19 23 10:54AM by Geo Mora, Office Visit; Not Available Not Available Not Available folic acid daily 02/16 completed 0; Recorded 05/09/19 23 10:52AM by Geo Mora, Office Visit; Not Available Not Available Not Available methotrex ate every . 01/[address] Salcedo; 0; Recorded 05/09/19 [...] Not Available BuSpar daily 01/16 completed From [facility]; 0; Recorded 05/09/19 23 10:49AM by Geo [...] about refills only to the pharmaci who sunnye d [facility] state standing order at active Not Available Not Available No t Available Mavyret 100 mg-40 mg tablet TAKE THREE TABLETS BY MOUTH EVERY DAY 01/09 completed Not Available Not Available Not Available Eliqujeremi DVT-PE Treatment 30-Day Starter 5 mg (74 tablets) in dose pack TAKE BY MOUTH PER PACKAGE directio ns 09/16 completed Not Available Not Available Not Available Vitals Date Recorded Body height Body mass index (BMI) Body weight Respiratory rate Heart rate Oxygen saturation Body temperature Systolic And Diastolic Provider Name and Address Organization Details Last Updated DateTime 149.86 cm 23.7 kg/m2 82859.7 1 g 16 /min 87 /min 99 % 98.4 [degF] 128/76 mm[Hg] CHASE AMES [facility] 17:49:13 Social History Question Answer Notes LastModified by [employer] Details LastModified Time Tobacco Smoking Status Never Smoker Wilma rubio [facility] 06/11/2023 15:56:49 What Was The Date Of Your Most Recent Tobacco Screening? 01/09/2025 [email or web address] Information not available 01/09/2025 Sex: Unknown Functional Status Question Answer Note LastModified by [employer] Details LastModified Time Do you use any [...] Recorded Time Tdap 3 completed GEO rubio [facility] 02/16/2023 15:11:53 Influenza, split virus, trivalent, preservative 6 completed GEO rubio [facility] 02/16/2023 15:11:53 Influenza, split virus, quadrivalent, preservative 9 completed GEO rubio [facility] 02/16/2023 15:11:52 Past Encounters Encounter ID Performer Location Encounter Start Date Encounter Closed Date Diagnosis/Indication Diagnosis SNOMED-CT Code Diagnosis ICD10 Code Diagnosis IMO Codes Diagnosis Note [id number] GLENN GARCIA [facility] [address] [place] [address] 01/09/2025 17:36:42 01/09/2025 18:07:35 Acute folliculitis 657747767 L73.9 [id number] Health Concerns Section Related Observation LastModified by Organization Detai ls LastModified Time None Recorded Concern Status LastModified by Organization Details LastModified Time None Recorded Payers Encounter Date Sequence Insurance Name Policy Number Policy Tovar Covered Member ID Tovar Member ID Guarantor Name 01/09/2025 1 [facility] (MEDICAID HMO) Mary Nesbitt [id number] Mary Nesbitt Notes Date Note Type Note Provider Name and Address Organization Details Recorded Time 01/09/2025 text/html Skin LesionRepor abhijeet by PatientHPIFor associated symptoms, patient reportsfever,lesions multiplying,fatigue, andmyalgia. For location, patient reportsaxillaandgroi n. For quality, patient reportspainful,drain age,growing __, andbecoming more symptomatic. For severity, patient reportsmoderate. For duration, patient reports3 weeks.ROS as noted in the HPI walk-in GLENN GARCIA [address] [place] [address], [phone], [facility] 01/09/2025 18:01:46 OBGyn Episode No OBEpisode recorded.
--- OUTSIDE RECORDS SUMMARY | 2025-02-07 22:03 | XMS_ITS | Clinical Summary ---
Author Organization [facility] Address [address] [place] [address] Care Team Providers Care [employer] Athlete Name Role Phone Joaquin Mak MD Primary Care Provider [phone] Allergies Active Allergy Reactions Criticality Noted Date [...] Comments Blood Pressure 119/75 12/29/2019 3:14 PM [employer] Pulse 75 12/29/2019 3:14 PM [employer] Temperature 37.2 C (98.9 F) 12/29/2019 2:03 PM [employer] Respiratory Rate 18 12/29/2019 3:14 PM [employer] Oxygen Saturation 99% 12/29/2019 3:14 PM [employer] Inhaled Oxygen Concentration - - Weight 47.6 kg (105 lb) 12/29/2019 2:03 PM [employer] Height 149.9 cm (4' 11 ) 12/29/2019 2:03 PM [employer] Body Mass Index 21.21 12/29/2019 2:03 PM [employer] Plan of Treatment Health Maintenance Due Date Last Done Comments DTAP/TDAP/TD VACCINES (1 - Tdap) 2008 HEPATITIS B VACCINES (1 of 3 - 19+ 3-dose series) 09/19 HPV/Cotest (21-29) 2010 CERVICAL CANCER SCREENING 10/03/2019 HPV/Cotest (30-65) 10/03/2019 PAP SMEAR 10/03/2019 INFLUENZA VACCINE (#1) 2024 HPV VACCINES (No Doses Required) Completed Insurance Care Teams [employer] Relationship Specialty Start Date End Date Joaquin Mak MD [address] [place] [phone] PCP - General Family Practice 12/29/19
--- OUTSIDE RECORDS SUMMARY | 2025-02-07 22:03 | XMS_ITS | Continuity of Care Document ---
Author Organization [facility], LRocLJudie, [facility] ([facility]) Address [address] [place] [address] Care Team Providers Care Sap Director Name Role Phone CIRO MAK Primary Care Provider Assessment No assessment recorded. Plan of Treatment Reminders Order Date Submit Date Provider Last Modified By Organization Details Last Modified Time Details Appointments OFFICE VISIT 15 2025 01:45P Ani Mak MD Not available Not available Not available Lab CBC 2024 025 [facility], [address] [facility] [address], [address], 11/14/2024 16:14:51 CMP, serum or plasma 2024 025 [facility], [address] [place] [address], [facility] [address] [place], [address], 11/15/2024 10:24:25 Referral None recorded. Procedures None recorded. Surgeries None recorded. Imaging None recorded. Medication Orders alprazola m 0.5 mg tablet 2024 025 [facility], [address] [place] [address], [address], 12/18/2024 09:54:03 diclofena c sodium 75 mg tablet,de layed release 2024 025 [facility], [address] [place] [address], [address], 01/09/2025 17:55:16 Patient TargetsNo targets recorded. Patient InstructionsNo instructions recorded. Reason for Referral None Reported. Results Created Date Observation Date Name Description Value Unit Range Abnormal Flag Note LastModifiedBy Organization Detail LastModifiedTime 11/16/1911/15/2024 COMPR EHENS MERY METAB OLIC PANEL , PLASM A glucose 66 mg/dL 65-99 normal Fasti ng refer ence inter rex Not Available [facility] [address] [address] [address] [place], [address], 11/15/2024 10:24:25 11/16/19 25 11/15/2024 COMPR EHENS MERY METAB OLIC PANEL , PLASM A urea nitrogen (BUN) 17 mg/dL 7-25 normal Not Available [address], [address], 11/15/2024 10:24:25 11/16/19 25 11/15/2024 COMPR EHENS MERY METAB OLIC PANEL , PLASM A creatinine 0.97 mg/dL 0.50-0 .97 normal Not Available [address], [address], 11/15/2024 10:24:25 11/16/19 25 11/15/2024 COMPR EHENS MERY METAB OLIC PANEL , PLASM A eGFR 78 mL/mi n/1.7 3m2 > or = 60 normal Not Available [facility] [address] [place], [address], 11/15/2024 10:24:25 11/16/19 25 11/15/2024 COMPR EHENS MERY METAB OLIC PANEL , PLASM A BUN/creatini ne ratio SEE NOTE: (calc ) 6-22 Not Repor abhijeet: BUN and Creat inine are withi n refer ence range . Not Available [facility] [address] [address] [place], [address], 11/15/2024 10:24:25 0911/15/2024 COMPR EHENS MERY METAB OLIC PANEL , PLASM A sodium 141 mmol/ L 135-14 6 normal Not Available [address], [address], 11/15/2024 10:24:25 11/16/1911/15/2024 COMPR EHENS MERY METAB OLIC PANEL , PLASM A potassium 3.8 mmol/ L 3.4-4. 8 normal Not Available [address], [address], 11/15/2024 10:24:25 11/16/1911/15/2024 COMPR EHENS MERY METAB OLIC PANEL , PLASM A chloride 108 mmol/ L 98-110 normal Not Available [address], [address], 11/15/2024 10:24:25 11/16/1911/15/2024 COMPR EHENS MERY METAB OLIC PANEL , PLASM A carbon dioxide 26 mmol/ L 20-32 normal Not Available [address], [address], 11/15/2024 10:24:25 11/16/19 25 11/15/2024 COMPR EHENS MERY METAB OLIC PANEL , PLASM A calcium 9.7 mg/dL 8.6-10 .2 normal Not Available [address], [address], 11/15/2024 10:24:25 11/16/1911/15/2024 COMPR EHENS MERY METAB OLIC PANEL , PLASM A protein, total 7.0 g/dL 6.4-8. 4 normal Not Available [address], [address], 11/15/2024 10:24:25 11/16/19 25 11/15/2024 COMPR EHENS MERY METAB OLIC PANEL , PLASM A albumin 4.1 g/dL 3.6-5. 1 normal Not Available [address], [address], 11/15/2024 10:24:25 11/16/19 25 11/15/2024 COMPR EHENS MERY METAB OLIC PANEL , PLASM A globulin 2.9 g/dL_ (calc ) 2.2-4. 0 normal Not Available [address], [address], 11/15/2024 10:24:25 11/16/19 25 11/15/2024 COMPR EHENS MERY METAB OLIC PANEL , PLASM A albumin/glob ulin ratio 1.4 (calc ) 0.9-2. 3 normal Not Available [address], [address], 11/15/2024 10:24:25 11/16/19 25 11/15/2024 COMPR EHENS MERY METAB OLIC PANEL , PLASM A bilirubin, total 0.3 mg/dL 0.2-1. 2 normal Not Available [address], [address], 11/15/2024 10:24:25 11/16/19 25 11/15/2024 COMPR EHENS MERY METAB OLIC PANEL , PLASM A alkaline phosphatase 58 U/L 31-125 normal Not Available [address], [address], 11/15/2024 10:24:25 11/16/1911/15/2024 COMPR EHENS MERY METAB OLIC PANEL , PLASM A AST 22 U/L 10-30 normal Not Available [address], [address], 11/15/2024 10:24:25 11/16/19 25 11/15/2024 COMPR EHENS MERY METAB OLIC PANEL , PLASM A ALT 18 U/L 6-29 normal NO COLLE CTION DATE RECEI TERE. WE HAVE USED THE DATE THE SPECI MEN WAS RECEI TERE BY THIS LABOR ATORY THE COLLE CTION DATE. IF THIS IS INCOR RECT, HORACE CAMARENA CT CLIEN T SERVI DAVEY. PHONE NUMBE R: [phone] Not Available [facility] [address] [place], [address], 11/15/2024 10:24:25 11/15/1911/14/2024 CBC WBC 10.1 x10 4.0-10 .5 Not Available [facility] [address] [facility] [address], [place], [address], 11/14/2024 16:14:51 11/15/1911/14/2024 CBC RBC 4.46 x10 3.50-5 .50 Not Available [facility] [address] [facility], [place], [address], 11/14/2024 16:14:51 11/15/1911/14/2024 CBC HGB 11.2 g/dL 12.0-1 6.0 low Not Available [facility] [address] [facility], [place], [address], 11/14/2024 16:14:51 11/15/1911/14/2024 CBC HCT 37.2 % 37.0-4 7.0 Not Available [facility] [address] [facility], [place], [address], 11/14/2024 16:14:51 11/15/1911/14/2024 CBC MCV 83.4 fL 80.0-9 9.9 Not Available [facility] [address] [facility], [place], [address], 11/14/2024 16:14:51 11/15/1911/14/2024 CBC MCH 25.1 pg 27.0-3 2.0 low Not Available [facility] [address] [facility] [address], [place], [address], 11/14/2024 16:14:51 11/15/1911/14/2024 CBC MCHC 30.1 g/dL 32.0-3 6.0 low Not Available [facility] [address] [facility], [place], [address], 11/14/2024 16:14:51 11/15/1911/14/2024 CBC RDW 17.3 % 11.5-1 4.5 high Not Available [facility] [address] [facility] [address], [place], [address], 11/14/2024 16:14:51 11/15/1911/14/2024 CBC plt 280.8 x10 140.0- 451.0 Not Available [facility] [address] [address], [place], [address], 11/14/2024 16:14:51 11/15/1911/14/2024 CBC lymphocytes % 33.0 % 20.0-5 0.0 Not Available [facility] [address] [facility], [place], [address], 11/14/2024 16:14:51 11/15/1911/14/2024 CBC granulcytes % 55.8 % 30.0-7 0.0 Not Available [facility] [address] [facility] [address], [place], [address], 11/14/2024 16:14:51 11/15/1911/14/2024 CBC monocytes % 6.8 % 2.0-16 .0 Not Available [facility] [address] [facility], [place], [address], 11/14/2024 16:14:51 11/15/1911/14/2024 CBC granulcytes# 5.6 x10 Not Guillermina ilable [facility] [address] [facility] [address], [place], [address], 11/14/2024 16:14:51 11/15/1911/14/2024 CBC lymphocytes # 3.3 x10 Not Available [facility] [address] [facility] [address], [place], [address], 11/14/2024 16:14:51 11/15/1911/14/2024 CBC monocytes # 0.7 x10 Not Avai lable [facility] [address] [facility] [address], [place], [address], 11/14/2024 16:14:51 11/26/1911/13/2024 upper endos copy (EGD) with colon oscop y (PROC ) No observ ation record ed. [email or web address] Not Available 11/26 17:02:19 Result Notes None recorded. Problems Name Problem SNOMED Code Status Onset Date Resolution Date Notes Provider Name and Address Organization Details Recorded Time Depressive disorder 77106617 Active 2022 GEO rubio [facility] 17:49:55 Migraine 19625868 Active 2022 MIGRAI NE; Impres comfort: daily migrai ne. GEO rubio [facility] 17:51:24 Chronic pain syndrome 979885661 Active 2022 GEO rubio [facility] 17:49:55 Major depressive disorder 534543709 Active 2022 GEO rubio [facility] 17:49:55 Bipolar disorder 84017775 Active 2022 GEO rubio [facility] 04/09/202 5 17:49:54 Essential hypertensio n 39977472 Active 2022 GEO rubio, [facility] 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 5 17:49:54 Hyperesthes ia 48303618 Active 2022 GEO MORA null, [facility] 5 17:49:54 Gastroesoph ageal reflux disease 558800100 Active 2022 GEO rubio, [facility] 5 17:49:54 Seizure disorder 226807527 Active 2022 GEO rubio, [facility] 5 17:49:54 Cyst of left ovary 5608152060887 9108 Active 2022 Ciro Mak MD [address] [place] [address], [address], [facility] 5 16:21:39 Generalized anxiety disorder 53403523 [facility] 2023 [facility] 17:49:54 Pulmonary embolism with pulmonary infarction 1973445837548 Active 2023 GEO MORA null, [facility] 5 17:50:09 Hypercoagul ability state 82004766 Active 2023 GEO rubio, [facility] 5 17:49:55 Chronic diarrhea 700803894 Active 2023 GEO rubio, [facility] 5 17:49:54 Genital herpes simplex 08329642 Active 2023 GEO MORAAZAR rubio, [facility] 17:49:54 Derangement of right knee 4005895814403 9109 Active 2024 GEO MORA null, [facility] 17:52:05 Bacterial urinary infection 257700110 Active 2024 Ciro Mak MD [address] [place] [address], [address] [place] [address] 5, [facility] 16:21:00 Rupture of anterior cruciate ligament of right knee 3286251139793 9103 Active 2024 Ciro Mak MD [address] [place] [address], [address] [place] [address] 5, [facility] 16:22:23 Acute hepatitis C 964698667 Active 2024 Ciro Mak MD [address] [place] [address], [phone], [facility] 14:23:53 Inflammator y disease of liver 695406604 Active 2024 Ciro Mak MD [address] [place] [address], [address], [facility] 14:24:06 Generalized abdominal pain 954039973 Active 2024 Ciro Mak MD [address] [place] [address], [address], [facility] 14:25:57 Supraventri cular tachycardia 4660521 Active 2024 Ciro Mak MD [address] [place] [address], [address], [facility] 12:01:26 Acute diarrhea 027116966 Active 2024 Ciro Mak MD [address] [place] [address], [address], [facility] 12:06:09 Iron deficiency anemia due to blood loss 171151238 Active 2024 Ciro Mak MD [address] [place] [address], [address], [facility] 12:10:20 Allergic rhinitis caused by pollen 88088854 Active 2024 Ciro Mak MD [address] [place] [address], [address] [place] [address] 5, [facility] 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 12:16:10 Seizure 91911932 Active 2024 Ciro Mak MD [address] [place] [address], [address], [facility] 15:47:06 Acute hemorrhagic gastritis 1083532 Active 2024 Ciro Mak MD [address] [place] [address], [address] [place] [address] 5, [facility] 15:47:27 Pain of multiple joints 67578675 Active 2024 Ciro Mak MD [address] [place] [address], [address], [facility] 15:49:51 Problem Notes None recorded. Procedures Surgical History Date Name Laterality Status Provider Name and Address Organization Details Recorded Time Cholecystectomy completed Wilma Pritche[facility] 06/11/2023 15:56:58 Tubal Ligation completed [facility], [place] 06/11/2023 15:57:02 Total Hysterectomy completed [facility], [place] 06/11/2023 15:57:06 removal of displaced intrauterine contraceptive device completed [facility], [place] 06/11/2023 15:57:27 Ovarian Cystectomy completed [facility], [place] 06/11/2023 15:57:42 Laparoscopy completed [facility], [place] 06/11/2023 15:57:47 right oophorectomy completed Rody Moody [facility], [place] 10/10/2023 10:30:05 Imaging Results None recorded. Procedure Notes None recorded. Medical Equipment None Reported. Allergies Allergen ID Allergen Name Allergen Category Reaction Reaction Severity Criticality Documentation Date Start Date Code Code System Note Provider Name and Address Organization Details Recorded Time 1788 amoxicill in medicatio n hives mild low 06/07/2022 723 RxNorm Wilma Pritchett [facility], [place] 4 15:52:07 1789 latex environme nt,medica tion hives mild low 06/07/2022 09192 91 RxNorm Wilmanamrata Pritchett [facility], [place] 4 15:52:19 [address] methotrex ate medicatio n headache vomiting moderate mild low 11/21/2022 6851 RxNorm Wilmanamrata Pritchett [facility], MargoLJudie 4 15:52:27 78075 methylpre dnisolone medicatio n tachycard ia moderate low 06/11/2023 6902 RxNorm Wilma Pritchett [facility], [place] 4 15:54:04 [address] Cipro medicatio n chest pain Not available high 10/03/202456488 3 RxNorm SOB as well. GEO rubio, [facility], ... 11:25:18 Medications Name Sig Start Date Stop [...] Last Updated DateTime 149.86 cm 23.2 kg/m2 41536.1 2 g 97 % 67 /min 100/70 mm[Hg] GEO VILLAGRANRIS [facility] 5 15:31:09 Social History Question Answer Notes LastModified by Stream Tags Details LastModified Time Tobacco Smoking Status Never Smoker Wilma Chambershailey rubio [facility] 06/11/2023 15:56:49 What Was The Date Of Your Most Recent Tobacco Screening? 01/09/2025 [email or web address] Information not available 01/09/2025 Sex: Unknown Functional Status Question Answer Note LastModified by Stream Tags Details LastModified Time Do you use any [...] Recorded Time Tdap 3 completed [facility]O rubio [facility] 02/16/2023 15:11:53 Influenza, split virus, trivalent, preservative 6 completed [facility]O rubio [facility] 02/16/2023 15:11:53 Influenza, split virus, quadrivalent, preservative 9 completed [facility]O rubio [facility] 02/16/2023 15:11:52 Past Encounters Encounter ID Performer Location Encounter Start Date Encounter Closed Date Diagnosis/Indication Diagnosis SNOMED-CT Code Diagnosis ICD10 Code Diagnosis IMO Codes Diagnosis Note [id number] Ciro Mak MD [facility] ([facility]) [address] [place] [address] 11/14/2024 14:50:41 11/14/2024 16:00:08 Seizure 04752285 R56.9 94271 Acute hemo rrhagic gastritis 4186710 K29.01 73215766 Pain of mu ltiple joints 82311005 M25.50 565559 Generalize d anxiety disorder 78427042 F41.1 Iron defic iency anemia due to blood loss 363931169 D50.0 889279 Health Concerns Section Related Observation LastModified by Organization Detai ls LastModified Time None Recorded Concern Status LastModified by Organization Details LastModified Time None Recorded Payers Encounter Date Sequence Insurance Name Policy Number Policy Tovar Covered Member ID Tovar Member ID Guarantor Name 11/14/2024 1 [facility] (MEDICAID HMO) Mary Nesbitt [id number] Mary Nesbitt Notes Date Note Type Note Provider Name and Address Organization Details Recorded Time 11/14/2024 text/html Generalized Anxi ety DisorderReported by PatientHPIFor associated symptoms, patient reportsdifficulty concentrating,difficul ty controlling worry,excess anxiety,tachycardia, andhigh irritability. For severity, patient reportsmild. Had a seizure yesterday. Also had a scope done yesterday at [facility].She was told that she needed to have her RBCs checked out per hospital.Would like to discuss her sugar levels as well, her sugar was checked yesterday and it was 84 after eating lunch. Ciro Mak MD [address] [place] [address], [phone], [facility] 11/14/2024 15:57:59 OBGyn Episode No OBEpisode recorded.
--- OUTSIDE RECORDS SUMMARY | 2025-02-07 22:03 | XMS_ITS | Clinical Summary ---
Author Organization [facility] Address [address] [place] [address] Care Team Providers Care Special Educator Name Role Phone Joaquin Mak MD Primary Care Provider [phone] Allergies Active Allergy Reactions Criticality Noted Date [...] drink = 0.6 oz pur e alcohol) [facility] Utilities Answer Date Recorded In the [...] week 05/17/2023 How often do you attend hindu or advent serv ices? 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
--- OUTSIDE RECORDS SUMMARY | 2025-02-07 22:03 | XMS_ITS | Patient Health Record ---
Author Organization [facility] Address [address] [place] [address] Care Team Providers Care Gi Physician Name Role Phone Joaquin Mak Primary Care Provider Dannie Alejandro JR Unavailable [phone] Reason For Referral Reason Chronic Diarrhea c lose 11/25 Diagnosis 1 Chronic diarrhea (K5 2.9) Referring Provider First Name Joaquin Referring Provider Last Name Obdulio Referring Provider Speciality Family Med icine Referred Organization [facility] Referred Provider Dannie Bui Referred Address [address] [facility],[place],[address], Referred Provider Specialty Infectious D isease General Notes Jamila Mohamud 11/06 04:50:01 PM CDT > mailbox full, Jamila Mohamud 11/11/2024 10:15:58 AM CDT > mailbox full Referral Priority Routine Medications Medication SIG (Take, Route, Frequency, Duration) Notes Start Date End Date Status Topiramate *Pick strength-f orm from [facility] for eRX* Active Gabapentin *Pick strength-f orm from [facility] for eRX* Active Vitamin D3 *Pick strength-f orm from [facility] for eRX* Active Leflunomide *Pick strength-f orm from [facility] for eRX* Active tramadol *Reorder from [facility] for eRx and Interaction Alerts* Active [...] Coverage Start Date Coverage End Date [facility] Health Plan Medicaid Replacement [address] [facility] [place] [address] [id number] Mary Nesbitt Self - patient is the insured Medical (General) History Surgical History Surgery Date(Month/Year) Gynecological surgeries
[2025-02-07 22:09] VITALS: BP 152/86; PULSE 114; RESP 17; TEMP 36.9; O2SAT 99; BMI 23.2
[2025-02-07 22:47] VITALS: BP 127/86; PULSE 115; RESP 18; O2SAT 97
--- NOTE | 2025-02-07 23:01 | W.ED.SKABFB ---
HPI - Skin/Abscess/Foreign Bdy General: Chief complaint: Skin/Abscess/Foreign Body Stated complaint: Thinks might have staff on RT side of face/neck Time Seen by Provider: 02/07/25 22:23 History of Present Illness: 34-year-old female that has 1 day of right hoffman swelling, discharge, abscess. She has a history of MRSA. Just finished dosage of Bactrim. She took a shower prior to arrival, which had increased swelling. No fevers. She stated her heart rate is high because she is stressed out, she is not dehydrated. Related Data Home Medications ?Medication ?Instructions ?Recorded ?Confirmed topiramate 200 mg tablet 200 mg PO BID 02/21/24 02/03/25 glecaprevir 100 mg-pibrentasvir 40 3 tab PO DAILY 11/10/24 02/03/25 mg tablet (Mavyret) loratadine 10 mg tablet 10 mg PO DAILY 11/10/24 02/03/25 metoprolol tartrate 25 mg tablet 25 mg PO BID 11/10/24 02/03/25 alprazolam 0.5 mg tablet 0.5 mg PO TID PRN Anxiety 02/03/25 02/03/25 hydrocodone 5 mg-acetaminophen 325 1 tab PO TID PRN Pain 02/03/25 02/03/25 mg tablet Previous Rx's ?Medication ?Instructions ?Recorded gabapentin 300 mg capsule 300 mg PO QID 30 days #120 caps 09/09/24 pantoprazole 40 mg tablet,delayed 40 mg PO DAILY #40 tabs 10/28/24 release (Protonix) ondansetron 4 mg disintegrating 4 mg PO TID PRN nausea and 12/08/24 tablet vomiting #30 tabs promethazine 25 mg tablet 25 mg PO TID PRN nausea #14 tabs 01/11/25 methocarbamol 750 mg tablet 750 mg PO Q6H PRN spasms #20 tabs 01/17/25 naproxen 500 mg tablet (Naprosyn) 500 mg PO BID PRN pain #20 tabs 01/17/25 clindamycin phosphate 1 % topical 1 applic topical BID #30 grams 02/07/25 gel doxycycline hyclate 100 mg capsule 100 mg PO BID 10 days #20 caps 02/07/25 Allergies Allergy/AdvReac Type Severity Reaction Status Date / Time methylprednisolone Allergy Severe ALGY-Anaphy Verified 02/03/25 13:41 laxis Latex, Natural Rubber Allergy Intermediate rash, hives Verified 02/03/25 13:41 amoxicillin Allergy ALGY-Hives Verified 02/03/25 13:41 cefdinir Allergy Unknown Verified 02/03/25 13:41 methotrexate AdvReac Intermediate migraines, Verified 02/03/25 13:41 N/V PFSH ED PFSH: Medical History (Updated 02/07/25 @ 23:02 by ENOCH Rodriguez) Bipolar disorder, unspecified Family history of colon cancer Bilateral pulmonary embolism Vapes nicotine containing substance Seizures Hx of migraines Ovarian mass, right Family history of psoriasis in father High risk medication use Inflammatory back pain Inflammatory arthritis Psychiatric care 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 Mosher at [facility] History of tubal ligation 12/2015- per Dr. Mosher at [facility] H/O removal of cyst [address] Mosher Family History Mother Stroke Hyperlipidemia Family history of thyroid problem Hypertension Cancer of tongue Father Degenerative disc disease Diabetes Unknown Breast cancer maternal great aunt Grandmother Ovarian cancer maternal Uterine cancer maternal Other Cancer Chronic kidney disease (CKD) Rheumatoid arthritis Denies family history of Lupus Social History Smoking and tobacco/nicotine status: never used tobacco/nicotine Second hand smoke exposure: No Alcohol intake: never Substance/Drug Use: never Physical Exam Const: COMMON NORMALS: no acute distress, average body habitus, patient oriented x3, no limitations, healthy appearing, alert and well nourished HENMT: FACE & SINUS IMAGES:  1. Area of draining clear fluid and local swelling Eye: COMMON NORMALS: Equal, round and reactive pupils present, EOMs intact bilaterally, conjunctivae normal, no scleral icterus, no papilledema and normal visual white by confrontation CONJUNCTIVA: Yes conjunctivae normal PUPIL: Yes Equal, round and reactive pupils present DIRECT OPHTHALMOSCOPY: Yes no papilledema Neck/C-Spine: GENERAL: Yes lymphadenopathy (Right anterior upper cervical chain) Chest: COMMONS NORMALS: normal inspection of the chest and normal palpation of entire chest wall Resp: COMMON NORMALS: normal respiratory effort, No retractions and No use of accessory muscles GI: COMMON NORMALS: Normal to inspection, nondistended, normoactive bowel sounds present, Soft to palpation, non-tender, No hepatosplenomegaly present and no masses PALPATION: Yes Soft to palpation and Yes No hepatosplenomegaly present : COMMON NORMALS: Yes no CVA tenderness BLADDER/KIDNEY EXAM: Yes no CVA tenderness Back/Pelvis: COMMON NORMALS: no CVA tenderness and thoracic and lumbar spine normal to inspection Extremity: COMMON NORMALS: normal to inspection, full ROM and capillary refill normal Neuro: COMMON NORMALS: patient oriented x3 SENSORIUM/ORIENTATION: Yes alert Psych: COMMON NORMALS: mental status grossly normal, Normal thought process present and cooperative THOUGHT PROCESS: Normal thought process present Course Vital Signs: Vital signs: Vital Signs Temperature 98.7 F 02/07/25 23:12 Pulse Rate 116 H 02/07/25 23:12 Respiratory Rate 17 02/07/25 23:12 Blood Pressure 149/92 02/07/25 23:12 Pulse Oximetry 100 02/07/25 23:12 Oxygen Delivery Me thod Room Air 02/07/25 22:09 MDM - Skin/Abscess/Foreign Bdy Medicial Decision Making Patient is a 34-year-old female that presents to the emergency room with a right chin area of draining, redness. There is no indurated or area to drain. Patient has self drained it. It is clear, with local redness. Plan is for MRSA coverage with her history, doxycycline by mouth, and clindamycin topically. All of her questions answered to her satisfaction. No radiology studies performed this visit Discharge Plan Discharge Patient Disposition: Home Clinical Impression: Abscess or cellulitis of chin Condition: Stable Prescriptions: New doxycycline hyclate 100 mg capsule 100 mg PO BID 10 Days Qty: 20 0RF clindamycin phosphate 1 % gel 1 applic topical BID Qty: 30 0RF Rx Instructions: Apply to chin No Action topiramate 200 mg tablet 200 mg PO BID gabapentin 300 mg capsule 300 mg PO QID 30 Days Qty: 120 3RF pantoprazole [Protonix] 40 mg tablet,delayed release (DR/EC) 40 mg PO DAILY Qty: 40 0RF ondansetron 4 mg tablet,disintegrating 4 mg PO TID PRN (Reason: nausea and vomiting) Qty: 30 0RF promethazine 25 mg tablet 25 mg PO TID PRN (Reason: nausea) Qty: 14 0RF methocarbamol 750 mg tablet 750 mg PO Q6H PRN (Reason: spasms) Qty: 20 0RF naproxen [Naprosyn] 500 mg tablet 500 mg PO BID PRN (Reason: pain) Qty: 20 0RF hydrocodone-acetaminophen 5-325 mg tablet 1 tab PO TID PRN (Reason: Pain) alprazolam 0.5 mg tablet 0.5 mg PO TID PRN (Reason: Anxiety) loratadine 10 mg tablet 10 mg PO DAILY metoprolol tartrate 25 mg tablet 25 mg PO BID Mavyret 100-40 mg tablet 3 tab PO DAILY Discharge Orders: Discharge ED (Routine); Ordered 02/07/25 Ordered By: Kezia Monroy Referrals: Joaquin Mak MD [Primary Care Provider, Family Practice] Discharge Diet: Usual diet Discharge Activity: Resume usual activity Patient Instructions: Abscess (ED), Patient Portal & Ben Instructions Activity Restrictions/Additional Instructions: - Ice can help with the swelling - Tylenol and ibuprofen for pain - doxycycline is at the pharmacy. Use as directed twice daily. Make sure you take with food or you will have gastric upset and think you are allergic. You are not allergic, this is a side effect of the medication if you utilize it without food. - Use a probiotic to avoid infectious diarrhea or eat active culture yogurt -Return to ED with worsening redness, fever, inability to open your mouth Thank you for choosing [facility] for your healthcare needs today. You have been screened and evaluated and felt safe for discharge. Health conditions do change or evolve sometimes and as such it is important that you follow up with your Primary Doctor to be re checked, 3-5 days is a general good time frame for follow up. You are always welcome to return to the ED for re assessment if your symptoms are worsening or you have new concerns Print Language: Belarusian Coding Level of Care Code ED [employer] Associate for Mark Berg
[2025-02-07 23:12] VITALS: BP 149/92; PULSE 116; RESP 17; TEMP 37.1; O2SAT 100
== END 2025-02-07 23:14 | disposition home or self-care (01) ==
PROVIDERS: Emergency Provider Physician Assistant; PCP Family Medicine
DX: R22.0 Localized swelling, mass and lump, head (principal); Z86.14 Personal history of Methicillin resistant Staphylococcus aureus infection
CPT/HCPCS: 99283; J9999